=== PATIENT | female | born 1950 | race African-American/Black ===

== ENCOUNTER → 2016-05-07 | Outpatient (CLI) | payer MEDICARE, MEDICAID ==
[~2016-05-07] MED LIST: /ADVA50050; /DULO30CA OR; /GLIP10TAB OR; /IPRA3SP; /MOXI40TA; /PANT40TA; /PANT40TA OR; /QUIN10TA; /RISE35TA; ACET50TA PO; ACTO30TA; ADVAIR; ALBU17IN2 IN; ALBU17IN2 INH; ALBU83IN IN; ALBU83IN INH; ALBUT INH; AMLO10TAB; AMLO5TAB; AMLO5TAB OR; AMLO5TAB2 PO; AMMO12LO TOP; ARTISOL10; ASPI1TAB PO; ASPI325T; ASPI325T OR; ASPI325T PO; AZIT600T OR; Amlodipine Besylate PO; BIMA01SOL OU; BRIM1OPD; CEFD300C OR; CEROVITE PO; COLA100C2; COLA50CA3 PO; COZA100T OR; COZA100T2 PO; CYCL5TA PO; DILA100C PO; DRIS50002 PO; DUONSOL IN; FERR325T PO; FLEXERIL; FLEXERIL PO; FURO1TAB15 PO; FURO40TA2 OR; GLIP5TAB8 PO; GLUC1000; GLUC1000 OR; GLUC1000 PO; GLUC10TA3 PO; HYDR-4266 PO; IBUP200C PO; IBUP600T; IBUP600T OR; IBUP800T; IBUP800T23 PO; INSUDET SC; INSUH10VL SC; INSULANT; INSULANT SC; IPRA2IN INH; IPRATROPIUM INH; ISOVUE-370 76% 100ML VIAL (Q9967) As Ordered ONE; KEFL500C7 PO; KEPP250T5 PO; KEPP500T6 PO; LASI20TA; LASI40TA; LASI40TA PO; LASI80TA OR; LASI80TA PO; LEVETIRACETAM PO; LIDO1CRE2 TOP; LIDO1OIN2 TOP; LIDODERM 5%; LIPI80TA; LISI10TA4 PO; LOPR1TAB6 PO; LOPR50TA OR; LOSA100T36 PO; LUMIGAN 0.01% OU; LYRI100C10 PO; LYRI150C PO; LYRI200C OR; LYRI75CA; MAALOX PLUS OR; MAGN400C2 PO; METO10TA2 PO; METO50TA2 PO; MODA200T15 PO; MYLASUS2 PO; NEUR300C PO; NIFE15CA PO; NORC7.5T PO; NORCOTAB PO; NOVOLOG100 MG/ML; NOVOLOG100 MG/ML SC; PHEN100C PO; PLAV75TA2 OR; PLAV75TA38 PO; POLY33502 PO; POLYOPD OU; POTA10CA PO; POTA20TA2 OR; PRAV10TA PO; PRAV1TAB39 PO; PRED10TA PO; PRED10TA2 PO; PRED20TA; PRED20TA OR; PRED20TA PO; PRED25TA PO; PREG100CA OR; PRENTAB13 PO; PRIL40CA; PROT1TAB2 PO; PROV90AE; REGULAR INSULIN; REST0.05 OU; RESTASIS; RESTASIS OU; RISP1TAB3 PO; SING10TA31; SYST1SOL OU; SYSTANE OU; TESS100C OR; TESS100C PO; THERGRAN; TRAM50TA2; VIBR100C PO; VICODINES TAB OR; VIMP100T PO; VITA100T17; VITA400C; VITA500T; VITAMIN D50000 UNT; VITAMIN D50000 UNT OR; XOPE1.252; ZITH250T OR; [UNRECOGNIZED DRUG - CODE] PO; [UNRECOGNIZED DRUG - OTHER] OR; [UNRECOGNIZED DRUG - OTHER] OR; [UNRECOGNIZED DRUG - OTHER] PO; atrovent INH; clindamycin OR; duonebs; flexeril OR; hyzaar; levemir SC; levimir SC; lidocaine TOP; lumigan; proventil inhaler INH; vicodin OR
== END | disposition home or self-care (01) ==
LOC: M RAD 12:40
PROVIDERS: ATTEND Family Medicine
DX: Z53.8 Procedure and treatment not carried out for other reasons (principal); I65.22 Occlusion and stenosis of left carotid artery

== ENCOUNTER → 2016-05-20 | Outpatient (REF) | payer MEDICARE, MEDICAID ==
[~2016-05-20] MED LIST changes: -ISOVUE-370 76% 100ML VIAL (Q9967) As Ordered ONE
[2016-05-20 17:32] LABS: ALBUMIN 3.2 GM/DL (3.2-5.2); ALKALINE PHOSPHATASE 108 U/L (45-117); ALT/SGPT 23 U/L (12-78); ANION GAP 9 MEQ/L (8-16); AST/SGOT 12 U/L (15-37); BILIRUBIN,TOTAL 0.1 MG/DL (0.2-1.0); BLOOD UREA NITROGEN 14 MG/DL (7-18); CALCIUM LEVEL 8.7 MG/DL (8.8-10.2); CARBON DIOXIDE LEVEL 28 MEQ/L (21-32); CHLORIDE LEVEL 107 MEQ/L (98-107); CHOLESTEROL LEVEL 156 MG/DL (<200); CREATININE FOR GFR 0.49 MG/DL (0.55-1.02); GLOMERULAR FILTRATION RATE > 60.0 (>45); GLUCOSE, FASTING 112 MG/DL (80-110); POTASSIUM SERUM 4.4 MEQ/L (3.5-5.1); SODIUM LEVEL 144 MEQ/L (136-145); TOTAL PROTEIN 6.4 GM/DL (6.4-8.2); TRIGLYCERIDES LEVEL 197 MG/DL (<150)
[2016-05-20 18:05] LABS: MEAN CORPUSCULAR HGB CONC 31.4 g/dl (32.0-36.5); MEAN CORPUSCULAR VOLUME 92.4 fl (80.0-96.0); RED CELL DISTRIBUTION WIDTH 14.1 % (11.5-14.5); WHITE BLOOD COUNT 6.5 K/mm3 (4.0-10.0)
== END ==
LOC: M SFHCLERA 10:40
PROVIDERS: ATTEND Family Medicine
DX: I50.32 Chronic diastolic (congestive) heart failure (principal); E11.65 Type 2 diabetes mellitus with hyperglycemia
CPT/HCPCS: 80053; 80061; 81001; 82043; 83036; 83880; 85027; G0463

== ENCOUNTER → 2016-06-05 | Outpatient (REF) | payer MEDICARE, MEDICAID ==
[2016-06-05 19:10] LABS: BLOOD UREA NITROGEN 18 MG/DL (7-18); CREATININE FOR GFR 0.51 MG/DL (0.55-1.02); GLOMERULAR FILTRATION RATE > 60.0 (>45)
== END ==
LOC: M LABNEURO 16:29
PROVIDERS: ATTEND Surgery Vascular Surgery
DX: I65.22 Occlusion and stenosis of left carotid artery (principal)

== ENCOUNTER → 2016-07-23 | Outpatient (REF) | payer MEDICARE, MEDICAID ==
[~2016-07-23] MED LIST changes: +MYLASUS16 PO; -MYLASUS2 PO
== END ==
LOC: M SFHCLERA 09:15
PROVIDERS: ATTEND Family Medicine
DX: I50.33 Acute on chronic diastolic (congestive) heart failure (principal); Z53.8 Procedure and treatment not carried out for other reasons

== ENCOUNTER → 2016-08-14 | Outpatient (CLI) | payer MEDICARE, MEDICAID ==
[~2016-08-14] MED LIST changes: +BRIM2OPD OU; +FERR325T3 PO; +GLUT500C PO; +GLUTAMINE; +HYDR100T PO; +LIDO3CRE14 EXT; +LIDOCAINE TOP; +METF1000 PO; +METO-209 PO; +METO100T PO; +NYST100024 TOP; +ROSU20TA PO; +SYMB16INH INH
== END ==
LOC: M LRY 11:43
PROVIDERS: ATTEND Internal Medicine Cardiovascular Disease
DX: D64.9 Anemia, unspecified (principal); I50.9 Heart failure, unspecified
CPT/HCPCS: 36415; G0463

== ENCOUNTER 2016-08-18 13:42 | Inpatient (IN) | payer MEDICARE, MEDICAID ==
[~2016-08-18] VITALS: Ht 157.5 cm; Wt 105.8 kg
[~2016-08-18 13:42] MED LIST changes: -BRIM2OPD OU; -FERR325T3 PO; -GLUT500C PO; -GLUTAMINE; -HYDR100T PO; -LIDO3CRE14 EXT; -LIDOCAINE TOP; -METF1000 PO; -METO-209 PO; -METO100T PO; -NYST100024 TOP; -ROSU20TA PO; -SYMB16INH INH
[2016-08-18] MEDS ORDERED: BRIM2OPD OU (14:37)
[2016-08-18] MEDS ORDERED: ROSU20TA PO (14:37)
[2016-08-18] MEDS ORDERED: INSUDET SC (14:37)
[2016-08-18] MEDS ORDERED: METO-209 PO (14:37)
[2016-08-18] MEDS ORDERED: GLUTAMINE (14:37)
[2016-08-18] MEDS ORDERED: METF1000 PO (14:37)
[2016-08-18] MEDS ORDERED: DILA100C PO (14:37)
[2016-08-18] MEDS ORDERED: HYDR100T PO (14:37)
[2016-08-18] MEDS ORDERED: FERR325T3 PO (14:37)
[2016-08-18] MEDS ORDERED: LIDOCAINE TOP (14:37)
--- NOTE | 2016-08-18 15:56 | REP ---
Clinical: Chest pain. Technique: AP and lateral views. Comparison: 03/11/2016. Findings: Diffuse bilateral hazy opacifications. Differential diagnosis includes pulmonary vascular congestion as well as multifocal pneumonia. No definite effusion. No pneumothorax. Mediastinum and cardiac silhouette are stable and mild cardiomegaly cannot be excluded. Skeletal structures demonstrate age-related degenerative changes. Impression: Diffuse hazy opacifications. Differential diagnosis includes vascular congestion and multifocal pneumonia. Signed by Guy Whitaker MD 08/18/2016 03:47 P
[2016-08-18] MEDS ORDERED: METO100T PO (16:39)
[2016-08-18] MEDS ORDERED: GLUT500C PO (16:40)
[2016-08-18] MEDS ORDERED: LIDO3CRE14 EXT (16:40)
[2016-08-18] MEDS ORDERED: SYMB16INH INH (16:42)
[2016-08-18] MEDS ORDERED: NYST100024 TOP (16:42)
--- NOTE | 2016-08-18 17:21 | REP ---
Noncontrast head CT: History: Increased seizures. Comparison head CT study: January 08, 2016. Findings: Bone window settings demonstrate an intact bony calvarium. Visualized paranasal sinuses are clear. There is moderate diffuse cerebral atrophy. There are small vessel atherosclerotic changes again noted. There is no evidence of intracranial hemorrhage. There is an old lacunar infarct in the right basal ganglia. There is evidence of an old subcortical infarction in the sub insular white matter on the right as well. These findings are unchanged. No new infarction is seen. No mass, bleed or midline shift is observed. Impression: Moderate diffuse atrophy. Small vessel changes. Old right-sided infarct pattern, unchanged. No acute intracranial lesion. Signed by Dre Florentino MD 08/19/2016 08:16 A
[2016-08-18] MEDS: SYMBICORT 160/4.5MCG INHALER 6GM INH SCH (21:00)
[2016-08-18] MEDS: HumaLOG INSULIN (NovoLOG) PER UNIT SC SCH (21:00)
[2016-08-18] MEDS ORDERED: FUROSEMIDE 40 MG/4 ML VIAL (J1940) IV ONE (22:30)
[2016-08-18 22:38] LABS: BASO % 0.4 % (0.0-1.0); EOS # 0.3 K/mm3 (0.0-0.50); EOS % 3.5 % (0.0-3.0); LARGE UNSTAINED CELL # 0.1 K/mm3 (0.0-0.4); LARGE UNSTAINED CELL % 1.5 % (0.0-4.0); LYMPH # 1.3 K/mm3 (1.5-4.5); LYMPH % 16.2 % (24.0-44.0); MEAN CORPUSCULAR HEMOGLOBIN 28.7 pg (27.0-33.0); MEAN CORPUSCULAR HGB CONC 31.7 g/dl (32.0-36.5); MEAN CORPUSCULAR VOLUME 90.3 fl (80.0-96.0); MONO # 0.4 K/mm3 (0.0-0.8); MONO % 4.7 % (0.0-5.0); NEUTROPHILS % 73.7 % (36.0-66.0); PLATELET COUNT, AUTOMATED 358 k/mm3 (150-450); RED CELL DISTRIBUTION WIDTH 13.6 % (11.5-14.5); WHITE BLOOD COUNT 8.1 K/mm3 (4.0-10.0)
[2016-08-18 22:59] LABS: ANION GAP 10 MEQ/L (8-16); BLOOD UREA NITROGEN 11 MG/DL (7-18); CALCIUM LEVEL 7.6 MG/DL (8.8-10.2); CARBON DIOXIDE LEVEL 28 MEQ/L (21-32); CHLORIDE LEVEL 103 MEQ/L (98-107); CREATININE FOR GFR 0.49 MG/DL (0.55-1.02); FREE T4 1.05 NG/DL (0.76-1.46); GLOMERULAR FILTRATION RATE > 60.0 (>45); GLUCOSE, FASTING 160 MG/DL (80-110); MAGNESIUM LEVEL 1.6 MG/DL (1.8-2.4); PHOSPHORUS LEVEL 3.9 MG/DL (2.5-4.9); POTASSIUM SERUM 3.2 MEQ/L (3.5-5.1); SODIUM LEVEL 141 MEQ/L (136-145)
[2016-08-18] MEDS ORDERED: ACETAMINOPHEN TAB 650MG DOSE (2X325MG) PO ONE (23:00)
[2016-08-18] MEDS ORDERED: POTASSIUM CHLORIDE 10 MEQ SR TABLET PO ONE (23:30)
[2016-08-19] VITALS (9 sets, daily range): BP systolic 141–183; BP diastolic 63–78; O2SAT 92–98
[2016-08-19] MEDS ORDERED: ALBUTEROL 90 MCG/ACT 8GM HFA INHALER INH PRN
[2016-08-19] MEDS ORDERED: NYSTATIN 100,000 UNITS/GM TOPICAL PWD 15 GM TOP PRN
[2016-08-19] MEDS ORDERED: LACTIC ACID 12% LOTION 225 GM BTL TOP PRN
[2016-08-19] MEDS ORDERED: ALBUTEROL SULFATE 2.5 MG/0.5 ML INH NEB SOLN INH PRN
[2016-08-19] MEDS ORDERED: GLUCAGON FOR INJ 1 MG VIAL (J1610) SC PRN
[2016-08-19] MEDS ORDERED: GLUCOSE 4 GM CHEW TABLET PO PRN
[2016-08-19] MEDS ORDERED: POLYVINYL ALCOHOL OPHTH SOLN 15 ML(LIQUITEARS) OU PRN
[2016-08-19] MEDS ORDERED: DEXTROSE 50% 50 ML SYRINGE IV PRN
[2016-08-19] MEDS ORDERED: POTASSIUM CHLORIDE 10 MEQ SR TABLET PO ONE ×2 (00:30→09:00)
[2016-08-19] MEDS ORDERED: MAGNESIUM CHLORIDE 64 MG TABCR (SLO MAG) PO ONE (00:30)
[2016-08-19] MEDS ORDERED: CALCIUM GLUCONATE 1,000 MG in D5W MINI-BAG PLUS 100 ML IV ONE (01:30)
--- NOTE | 2016-08-19 01:50 | HPEPDOC ---
General Date of Admission August 19, 2016 at 00:03 Primary Care Physician: CHRISTOPHER CORONADO MD Attending Physician: JORGITO LITTLE Chief Complaint The patient is a 65-year-old female admitted with a reason for visit of Seizure. Source: Patient, RN notes reviewed, Old records Exam Limitations: No limitations Timing/Duration: This morning Associated Symptoms: Chest Pain, Cough, Headaches, Shortness of breath History of Present Illness Ms. Cooney is a 65-year-old -[place] female who presents to [facility] emergency Department with difficulty breathing and convulsions and involuntary movements. Past medical history significant for hypertension, chronic obstructive pulmonary disease, diabetes mellitus, neuropathy, history of right-sided infarction with persistent left-sided weakness, history of left breast carcinoma , glaucoma, coronary artery disease, gastroesophageal reflux disease, seizure disorder, dyslipidemia, diastolic congestive heart failure, iron deficiency anemia, diverticulosis, obstructive sleep apnea, and sarcoidosis. Patient reports that she developed some shortness of breath and difficulty breathing today with orthopnea, PND, and nonproductive cough. Admits to chronic lower extremity edema. Ambulates some, but mostly with the assistance of a walker and/or wheelchair. Reports a hospitalization 2 weeks ago in [place] for similar symptoms. Reports that she was also having increased body convulsions and involuntary movements that lasted between 10 and 15 minutes and were intermittent. Unable to recall how many of these episodes she's had. 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 Reports buccal maceration as well as bladder incontinence; however, patient has a history of urinary incontinence. Reports that she recalls entire event, but after convulsions and involuntary movements patient reports tiredness and diffuse headache. Also reports right-sided chest pain that she describes as a heaviness without radiation, diaphoresis, fever, chills , night sweats. Denies taking anything for her chest pain. Denies sick contacts. Besides positive review of systems as above all other review of systems are negative. Hospitalist service was consulted and patient was admitted for further medical management. Home Medications Scheduled (Restasis) 0.05 % Emu, 1 DROP OU BID, (Reported) Amlodipine Besylate (Amlodipine Besylate) 5 Mg Tab, 5 MG PO BID, (Reported) Aspirin (Aspirin) 325 Mg Tab, 325 MG PO DAILY, (Reported) Bimatoprost (Lumigan) 50 Drop/2.5 Ml Salma, 1 DROP OU QHS, (Reported) Brimonidine Tartrate 0.15% (Brimonidine Tartrate) 100 Drop/5 Ml Soln, 1 DROP OU BID, (Reported) Budesonide/Formoterol (Symbicort 160-4.5 Mcg/Act) 60 Puff/Inhaler Aers, 2 PUFF INH BID, (Reported) Clopidogrel Bisulfate (Plavix) 75 Mg Tab, 75 MG PO DAILY, (Reported) Ferrous Sulfate (Ferrous Sulfate) 325 Mg Tab, 325 MG PO BID, (Reported) Furosemide (Furosemide) 80 Mg Tab, 80 MG PO DAILY, (Reported) TAKES AT NOON Insulin Aspart (Novolog) 100 U/Ml Inj, 0 SC ACHS, (Reported) PER SLIDING SCALE Insulin Detemir (Levemir) 1 Units/0.01 Ml Susp, 60 UNITS SC BID, (Reported) Losartan Potassium (Losartan Potassium) 100 Mg Tab, 100 MG PO BID, (Reported) Metformin Hydrochloride (Metformin HCl) 1,000 Mg Tab, 1,000 MG PO BID, (Reported ) Metoprolol Tartrate (Metoprolol Tartrate) 100 Mg Tab, 100 MG PO BID, (Reported) Multivitamins/ ( 28-0.8 mg) 1 Tab Tab, 1 TAB PO DAILY, (Reported ) TAKES AT NOON Pantoprazole Sodium Sesquihydr (Protonix) 40 Mg Tab, 40 MG PO DAILY, (Reported) Phenytoin Sodium (Dilantin) 100 Mg Cap, 300 MG PO TID, (Reported) Prednisone (Prednisone) 2.5 Mg Tab, 2.5 MG PO DAILY, (Reported) TAKES AT NOON Rosuvastatin Calcium (Rosuvastatin Calcium) 20 Mg Tab, 20 MG PO QHS, (Reported) Vitamin D (Drisdol) 50,000 Unit Cap, 50,000 UNIT PO QWEEK, (Reported) SUNDAYS hydrALAZINE HCL (Hydralazine HCl) 100 Mg Tab, 100 MG PO TID, (Reported) l-Glutamine (Glutamine) 500 Mg Cap, 500 MG PO BID, (Reported) Scheduled PRN (Ammonium Lactate) 12 % Lot, 1 DOSE TOP BID PRN for DRY SKIN, (Reported) APPLY TO FEET (Lidocaine) Unknown Strength Cre, Unknown Dose EXT BID PRN for PAIN, (Reported) APPLIES TO FEET Acetaminophen/Hydrocodone ([place] 7.5-325 mg) 1 Tab Tab, 1 TAB PO TID PRN for PAIN, (Reported) Albuterol Sulfate (Albuterol Sulfate) 2.5 Mg/3 Ml Nebu, 2.5 MG INH Q2H PRN for SOB/WHEEZING, (Reported) Albuterol Sulfate (Proventil Hfa) 167 Puff/6.7 Gm Aers, 2 PUFFS INH Q4H PRN for SHORTNESS OF BREATH, (Reported) Nystatin (Nystatin Powder) 100,000 Unit/Gm Pow, 1 DOSE TOP for RASH, (Reported) APPLIES UNDER THE STOMACH Polyethylene Glycol (Systane 0.4-0.3 %) 15 Ml Salma, 1 DROP OU BID PRN for DRY EYES, (Reported) Allergies Coded Allergies: Atorvastatin (Unverified Allergy, Unknown, 05/25/15) Baclofen (Unverified Allergy, Unknown, 05/25/15) Clindamycin (Unverified Allergy, Unknown, 05/25/15) Duloxetine (Verified Allergy, Unknown, 02/23/16) Levetiracetam (Verified Allergy, Unknown, 02/23/16) Lisinopril (Unverified Allergy, Unknown, 05/25/15) Sulfa Drugs (Verified Allergy, Unknown, 07/06/12) Topiramate (Verified Allergy, Unknown, hallucinates, 08/18/16) Tramadol (Unverified Allergy, Unknown, 05/25/15) Past Medical History Medical History 1. History of right-sided infarction with persistent left-sided weakness 2. History of left breast carcinoma 3. Chronic obstructive pulmonary disease 4. Hypertension 5. Glaucoma 6. Coronary artery disease 7. Diabetes mellitus 8. Gastroesophageal reflux disease 9. History of seizure 10. Dyslipidemia 11. Diastolic congestive heart failure with left ventricular ejection fraction 75% 12. Iron deficiency anemia 13. Diverticulosis 14. Obstructive sleep apnea 15. Sarcoidosis Surgical History 1. Left simple mastectomy 2. Endoscopy 3. Colonoscopy 4. Bilateral cataracts 5. 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 Dyspnea, Edema , Denies: Palpitations, Lt Headedness Gastrointestinal: Denies: Nausea, Vomiting, Abdominal Pain, Diarrhea, Constipation, Melena, Hematochezia Genitourinary: Reports: Incontinence, Other Symptoms (pruritus), Denies: Dysuria, Frequency, Hematuria Hematologic: Denies: Bruising, Pet[place]chia Musculoskeletal: Reports: Spasms, Denies: Neck Pain, Back Pain, Muscle Pain Neurological: Denies: Weakness, Numbness Physical Examination General Exam: Positive: Alert, Cooperative, No Acute Distress Eye Exam: Positive: PERRLA, Conjunctiva & lids normal, EOMI, Negative: Sclera icteric, Ptosis ENT Exam: Positive: Mucous membr. moist/pink, Pharynx Normal, Tongue Midline, Nares Patent, Negative: Atraumatic, Pharyngeal Edema Neck Exam: Positive: Supple, JVD (level of the mandible), Other (without carotid bruits), Negative: Lymphadenopathy Chest Exam: Positive: Clear to auscultation, Normal air movement, Rhonchi ( bilateral lower lobes) Heart Exam: Positive: Rate Normal, Regular Rhythm, Normal S1, Normal S2, Other (PMI not palpated), Negative: Gallops, Murmurs, Rubs Telemetry: Positive: AV Block (first-degree) Abdomen Exam: Positive: BS Hypoactive, Soft, Negative: Tenderness, Hepatospenomegaly Extremity Exam: Positive: Edema (+2 pitting edema bilateral lower feet), Normal pulses, Negative: Clubbing, Cyanosis, Tenderness Skin Exam: Negative: Rash, Lesion Neuro Exam: Positive: Normal Speech, Other (5/5 strength in right upper and lower extremity; 4/5 strength in left upper and lower extremity) Other physical findings Head CT without contrast IMPRESSION: Moderate diffuse atrophy. Small vessel changes. Old right-sided infarct pattern, unchanged. No acute intracranial lesion. Chest x-ray IMPRESSION: Diffuse hazy opacifications. Differential diagnosis includes vascular congestion and multifocal pneumonia. Vital Signs Vital Signs Date Time Temp Pulse Resp B/P (MAP) Pulse Ox O2 Delivery O2 Flow Rate FiO2 08/19/16 00:57 78 97 08/19/16 00:42 183/82 (115) 08/18/16 14:42 99.3 19 Room Air Laboratory Data Labs 24H Laboratory Tests 2 08/18/16 21:36: White Blood Count 8.1, Red Blood Count 3.17L, Hemoglobin 9.1L, Hematocrit 28.6L , Mean Corpuscular Volume 90.3, Mean Corpuscular Hemoglobin 28.7, Mean Corpuscular Hemoglobin Concent 31.7L, Red Cell Distribution Width 13.6, Platelet Count 358, Neutrophils (%) (Auto) 73.7H, Lymphocytes (%) (Auto) 16.2L, Monocytes (%) (Auto) 4.7, Eosinophils (%) (Auto) 3.5H, Basophils (%) (Auto) 0.4 , Neutrophils # (Auto) 6.0, Lymphocytes # (Auto) 1.3L, Monocytes # (Auto) 0.4, Eosinophils # (Auto) 0.3, Basophils # (Auto) 0.0, Large Unclassified Cells % 1.5 , Large Unclassified Cells # 0.1, Anion Gap 10, Glomerular Filtration Rate > 60.0, Blood Urea Nitrogen 11, Creatinine 0.49L, Sodium Level 141, Potassium Level 3.2L, Chloride Level 103, Carbon Dioxide Level 28, Calcium Level 7.6L, Phosphorus Level 3.9, Total Creatine Kinase 120, Magnesium Level 1.6L, Creatine Kinase MB 1.6, Creatine Kinase MB Relative Index 1.33, Troponin I < 0.02, B- Type Natriuretic Peptide 275H, Albumin 3.0L, Thyroid Stimulating Hormone (TSH) 1.520, Free Thyroxine 1.05, Phenytoin (Dilantin) Level 10.4 CBC/BMP Laboratory Tests 08/18/16 21:36 Red Blood Count 3.17 L, Mean Corpuscular Volume 90.3, Mean Corpuscular Hemoglobin 28.7, Mean Corpuscular Hemoglobin Concent 31.7 L, Red Cell Distribution Width 13.6, Neutrophils (%) (Auto) 73.7 H, Lymphocytes (%) (Auto) 16.2 L, Monocytes (%) (Auto) 4.7, Eosinophils (%) (Auto) 3.5 H, Basophils (%) ( Auto) 0.4, Neutrophils # (Auto) 6.0, Lymphocytes # (Auto) 1.3 L, Monocytes # ( Auto) 0.4, Eosinophils # (Auto) 0.3, Basophils # (Auto) 0.0, Calcium Level 7.6 L , Phosphorus Level 3.9, Total Creatine Kinase 120 Microbiology Microbiology 08/18/16 Blood Culture, Received Pending Assessment/Plan Ms. Cooney is a 65-year-old female with a past medical history significant for hypertension, chronic obstructive pulmonary disease, diabetes mellitus, neuropathy, history of right-sided infarction with persistent left-sided weakness, history of left breast carcinoma, glaucoma, coronary artery disease, gastroesophageal reflux disease, seizure disorder, dyslipidemia, diastolic congestive heart failure, iron deficiency anemia, diverticulosis, obstructive sleep apnea, and sarcoidosis who presents with shortness of breath likely related to congestive heart failure exacerbations and increased convulsions and involuntary movements which do not appear any more serious than what is baseline. 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 Chest x-ray indicates vascular congestion most likely secondary to CHF exacerbation. BNP 275. Ordered Lasix 80 mg IV twice a day. Obtaining records from [facility] before ordering new echocardiogram. Hold beta blockers for the time being. Convulsions and involuntary movements Does not appear to be too far from patient's baseline. Continue phenytoin. Could consider neurology consult if patient's symptoms worsen. Hypokalemia Appears asymptomatic. No changes on EKG. Potassium chloride 40 mEq 2 doses provided. Monitor BMP. Hypomagnesemia Patient has poor peripheral access. Provided 64 mg magnesium chloride supplementation. Will recheck magnesium level in the morning. Hypocalcemia Corrected calcium for albumin is 8.4. Provided 1 g calcium gluconate. Chronic obstructive pulmonary disease Continue with Symbicort, Proventil nebulizer treatments, and Proventil inhaler. Hypertension Continue Norvasc, hydralazine, and Cozaar. Hold beta laurence. Diabetes mellitus Continue Levemir 60 units twice a day. Cover with sliding scale insulin, fingerstick blood glucose levels before meals and at bedtime, and hypoglycemic protocol. Coronary artery disease with history of cerebrovascular accident Continue with aspirin 325 mg daily and Plavix 75 mg daily. Iron deficiency anemia Asymptomatic. Continue ferrous sulfate 325 mg twice a day. Monitor H&H. Dyslipidemia Continue with Crestor. Obstructive sleep apnea Obstructive sleep apnea protocol and continuous pulse oximeter. Cutaneous candidiasis Continue with nystatin powder. Disposition Admit: Progressive care unit Anticipated hospitalization: 2 nights Attending: Dr. Polanco Diet: Continue Current (consistent carbohydrate; 2 g sodium) Activity: Continue Current (activity as tolerated) Diagnostics: Check Labs, Repeat Labs in AM Anticipated Discharge: Home KRISTI GONZALEZ August 19, 2016 01:49
[2016-08-19] MEDS: PHENYTOIN ER 100 MG CAP PO SCH ×4 (02:36→20:38)
[2016-08-19] MEDS: LOSARTAN 50 MG TAB PO SCH ×3 (02:51→20:37)
[2016-08-19] MEDS: **hydrALAZINE HCL** 25 MG TAB PO SCH ×4 (02:52→20:36)
[2016-08-19] MEDS: amLODIPine 5 MG TAB PO SCH ×3 (02:53→20:37)
[2016-08-19] MEDS: ANEXSIA, NORCO 7.5MG/325MG TABLET(HYDROCODONE/APAP) PO PRN ×2 (03:07→20:36)
[2016-08-19] MEDS: ROSUVASTATIN 10 MG TAB (CRESTOR) PO SCH ×2 (03:35→20:49)
[2016-08-19 06:00] LABS: MEAN CORPUSCULAR HEMOGLOBIN 29.2 pg (27.0-33.0); MEAN CORPUSCULAR HGB CONC 33.1 g/dl (32.0-36.5); MEAN CORPUSCULAR VOLUME 88.2 fl (80.0-96.0); RED CELL DISTRIBUTION WIDTH 13.8 % (11.5-14.5); WHITE BLOOD COUNT 7.8 K/mm3 (4.0-10.0)
[2016-08-19 06:10] LABS: ANION GAP 7 MEQ/L (8-16); BLOOD UREA NITROGEN 11 MG/DL (7-18); CALCIUM LEVEL 8.3 MG/DL (8.8-10.2); CARBON DIOXIDE LEVEL 33 MEQ/L (21-32); CHLORIDE LEVEL 102 MEQ/L (98-107); CREATININE FOR GFR 0.46 MG/DL (0.55-1.02); GLOMERULAR FILTRATION RATE > 60.0 (>45); GLUCOSE, FASTING 145 MG/DL (80-110); MAGNESIUM LEVEL 1.6 MG/DL (1.8-2.4); POTASSIUM SERUM 3.4 MEQ/L (3.5-5.1); SODIUM LEVEL 142 MEQ/L (136-145)
--- NOTE | 2016-08-19 06:34 | ECGEPIP ---
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
[2016-08-19] MEDS: BRIMONIDINE 0.15% OPHTH SOLN 5 ML OU SCH ×3 (06:47→20:50)
[2016-08-19] MEDS ORDERED: METOPROLOL TARTRATE 100 MG TAB PO SCH (09:00)
[2016-08-19] MEDS: ASPIRIN 325 MG TAB PO SCH (09:07)
[2016-08-19] MEDS: PANTOPRAZOLE 40MG TAB (PROTONIX) PO SCH (09:07)
[2016-08-19] MEDS: FERROUS SULFATE 325MG TAB PO SCH ×2 (09:07→20:37)
[2016-08-19] MEDS: CLOPIDOGREL 75 MG TAB PO SCH (09:10)
[2016-08-19] MEDS: ENOXAPARIN 40 MG/0.4 ML SYRINGE (J1650) SC SCH (09:10)
[2016-08-19] MEDS: LEVEMIR (INSULIN DETEMIR) 1 UNITS/0.01ML SC SCH ×2 (09:11→20:50)
[2016-08-19] MEDS: FUROSEMIDE 100 MG/10 ML VIAL (J1940) IV SCH ×2 (09:11→20:38)
[2016-08-19] MEDS: HumaLOG INSULIN (NovoLOG) PER UNIT SC SCH ×4 (09:12→20:50)
[2016-08-19] MEDS: SYMBICORT 160/4.5MCG INHALER 6GM INH SCH ×2 (10:29→20:31)
[2016-08-19] MEDS: NYSTATIN 100,000 UNITS/GM TOPICAL PWD 15 GM TOP SCH ×2 (11:28→20:50)
[2016-08-19] MEDS: predniSONE 2.5 MG TAB PO SCH (12:07)
[2016-08-19] MEDS: PRENATAL VITAMIN TAB PO SCH (12:08)
[2016-08-19] MEDS ORDERED: SODIUM CHLORIDE 0.9% INJ 10 ML SYR IV PRN (16:45)
[2016-08-19] MEDS: SODIUM CHLORIDE 0.9% INJ 10 ML SYR IV SCH (17:20)
[2016-08-19] MEDS ORDERED: cloNIDine 0.1 MG TAB PO ONE (23:00)
[2016-08-20 06:00] VITALS: BP 145/80
[2016-08-20] MEDS: ANEXSIA, NORCO 7.5MG/325MG TABLET(HYDROCODONE/APAP) PO PRN (06:40)
[2016-08-20] MEDS: SODIUM CHLORIDE 0.9% INJ 10 ML SYR IV SCH ×2 (06:40→17:44)
[2016-08-20 07:11] LABS: MEAN CORPUSCULAR HEMOGLOBIN 29.1 pg (27.0-33.0); MEAN CORPUSCULAR HGB CONC 32.6 g/dl (32.0-36.5); MEAN CORPUSCULAR VOLUME 89.4 fl (80.0-96.0); RED CELL DISTRIBUTION WIDTH 13.8 % (11.5-14.5); WHITE BLOOD COUNT 6.9 K/mm3 (4.0-10.0)
[2016-08-20 07:17] LABS: ANION GAP 7 MEQ/L (8-16); BLOOD UREA NITROGEN 13 MG/DL (7-18); CALCIUM LEVEL 7.6 MG/DL (8.8-10.2); CARBON DIOXIDE LEVEL 31 MEQ/L (21-32); CHLORIDE LEVEL 105 MEQ/L (98-107); CREATININE FOR GFR 0.47 MG/DL (0.55-1.02); GLOMERULAR FILTRATION RATE > 60.0 (>45); GLUCOSE, FASTING 112 MG/DL (80-110); MAGNESIUM LEVEL 1.9 MG/DL (1.8-2.4); POTASSIUM SERUM 3.6 MEQ/L (3.5-5.1); SODIUM LEVEL 143 MEQ/L (136-145)
[2016-08-20] MEDS: SYMBICORT 160/4.5MCG INHALER 6GM INH SCH ×2 (07:21→19:49)
[2016-08-20] MEDS: LEVEMIR (INSULIN DETEMIR) 1 UNITS/0.01ML SC SCH ×2 (09:01→22:03)
[2016-08-20] MEDS: HumaLOG INSULIN (NovoLOG) PER UNIT SC SCH ×4 (09:02→21:00)
[2016-08-20] MEDS: FUROSEMIDE 100 MG/10 ML VIAL (J1940) IV SCH ×2 (09:02→21:51)
[2016-08-20] MEDS: FERROUS SULFATE 325MG TAB PO SCH ×2 (09:03→21:52)
[2016-08-20] MEDS: amLODIPine 5 MG TAB PO SCH ×2 (09:03→21:53)
[2016-08-20] MEDS: PRENATAL VITAMIN TAB PO SCH (09:03)
[2016-08-20] MEDS: ENOXAPARIN 40 MG/0.4 ML SYRINGE (J1650) SC SCH (09:03)
[2016-08-20] MEDS: CLOPIDOGREL 75 MG TAB PO SCH (09:03)
[2016-08-20] MEDS: cloNIDine 0.1 MG TAB PO SCH ×2 (09:03→21:53)
[2016-08-20] MEDS: PANTOPRAZOLE 40MG TAB (PROTONIX) PO SCH (09:04)
[2016-08-20] MEDS: LOSARTAN 50 MG TAB PO SCH ×2 (09:04→21:52)
[2016-08-20] MEDS: ASPIRIN 325 MG TAB PO SCH (09:04)
[2016-08-20] MEDS: PHENYTOIN ER 100 MG CAP PO SCH ×3 (09:04→21:51)
[2016-08-20] MEDS: **hydrALAZINE HCL** 25 MG TAB PO SCH ×3 (09:05→21:52)
[2016-08-20] MEDS: BRIMONIDINE 0.15% OPHTH SOLN 5 ML OU SCH ×2 (09:06→22:03)
[2016-08-20] MEDS: NYSTATIN 100,000 UNITS/GM TOPICAL PWD 15 GM TOP SCH ×2 (09:06→22:03)
--- NOTE | 2016-08-20 09:11 | REP ---
Procedure: PICC line insertion with Shruthi-Gilson The procedure was performed under the direct supervision of Dr. Florentino. The risks and benefits of the procedure were explained to the patient and informed consent was obtained. The right basilic vein vein was localized using ultrasound guidance. The skin was prepped and draped in a sterile fashion. 2% lidocaine was used as a local anesthetic. Using ultrasound guidance the basilic vein was cannulated and a 0.018 guidewire was inserted and advanced to the SVC using fluoroscopic guidance. The needle was removed and a 5.5 [place] dilator and peel-away sheath was inserted over the guide wire. A 5.5 [place] dual lumen catheter was cut to length of 41 cm. The dilator was removed and the catheter was inserted over the guide wire with the tip ending in the SVC. The peel-away sheath was removed and the catheter was flushed with heparinized saline as per Hospital protocol. The catheter was affixed to the skin and a sterile dressing was applied. The the patient tolerated the procedure well and there were no immediate complications. 1.7 minutes of fluoro time was utilized for this procedure. Reviewed by ETIENNE Fuentes 08/19/2016 07:08 PSigned by Dre Florentino MD 08/20/2016 09:02 A
[2016-08-20] MEDS ORDERED: ACETAMINOPHEN TAB 650MG DOSE (2X325MG) PO PRN (10:45)
[2016-08-20 11:29] VITALS: O2SAT 96
[2016-08-20] MEDS: predniSONE 2.5 MG TAB PO SCH (12:03)
--- NOTE | 2016-08-20 13:47 | IPNPDOC ---
Subjective Date Seen The patient was seen on 08/20/16. Subjective Chief Complaint/HPI The patient is a 65-year-old female admitted with a reason for visit of Seizure. General: Denies: Chills, Night Sweats Constitutional: Denies: Chills, Fever Eyes: Denies: Pain, Vision change ENT: Denies: Head Aches, Ear Pain Skin: Denies: Rash, Lesions Pulmonary: Denies: Dyspnea, Cough Cardiovascular: Denies: Chest Pain, Palpitations Gastrointestinal: Denies: Nausea, Vomiting Genitourinary: Denies: Dysuria, Frequency Hematologic: Denies: Bruising, Bleeding Excessively Objective Physical Examination General Exam: Positive: Alert, Cooperative, No Acute Distress ENT Exam: Positive: Atraumatic, Mucous membr. moist/pink, Nares Patent Neck Exam: Positive: Other Chest Exam: Positive: Rales (faint bibasilar rales) Heart Exam: Positive: Rate Normal, Regular Rhythm, Normal S1, Normal S2 Abdomen Exam: Positive: Soft, Negative: Tenderness Extremity Exam: Positive: Edema (2+ pitting edema in the lower extremities bilaterally), Normal pulses Skin Exam: Negative: Rash, Lesion Neuro Exam: Positive: Normal Speech Psych Exam: Positive: Oriented x 3 Assessment /Plan Plan/VTE VTE Prophylaxis Ordered?: Yes Plan/Urinary Catheter Urinary Catheter: Place Nails Reason for insertion/continuin: Critical Pt monitoring Plan Diet: Continue Current Activity: Continue Current Diagnostics: Check Labs, Repeat Labs in AM Anticipated Discharge: Home Decompensated Congestive heart failure exacerbation Respiratory status significantly approved with a net negative diuresis of ~2.4L here Cont Lasix 80 mg IV twice a day Pending records from recent [facility] regarding echocardiogram Cont Daily Weights Monitor I/O's We will cont to volume optimize the patient Chronic obstructive pulmonary disease Continue with Symbicort, Proventil nebulizer treatments, and Proventil inhaler. Hypertension Continue Norvasc, hydralazine, and Cozaar. Diabetes mellitus Continue Levemir 60 units twice a day Cover with sliding scale insulin, fingerstick blood glucose levels before meals and at bedtime, and hypoglycemic protocol. Coronary artery disease with history of cerebrovascular accident Continue with aspirin 325 mg daily and Plavix 75 mg daily. Iron deficiency anemia Continue ferrous sulfate 325 mg twice a day Dyslipidemia Continue with Crestor. Obstructive sleep apnea Obstructive sleep apnea protocol and continuous pulse oximeter. Cutaneous candidiasis Continue nystatin DVT Prophylaxis Lovenox SC Dispo: PT Eval pending. Continue volume optimization. Anticipate D/C in the next 48-72 hrs pending clinical improvement. VS, I&O, 24H, Fishbone Vital Signs/I&O Vital Signs Date Time Temp Pulse Resp B/P (MAP) Pulse Ox O2 Delivery O2 Flow Rate FiO2 08/20/16 11:29 96 Room Air 08/20/16 09:03 145/80 08/20/16 09:03 81 08/20/16 07:10 18 08/20/16 06:00 97.9 I&O- Last 24 Hours up to 6 AM 08/20/16 06:00 Intake Total 720 ml Output Total 3135 ml Balance -2415 ml Laboratory Data 24H LABS Laboratory Tests 2 08/19/16 16:49: Bedside Glucose (Misc Panel) 269H 08/19/16 19:39: Total Creatine Kinase 92, Creatine Kinase MB 1.3, Creatine Kinase MB Relative Index 1.41, Troponin I < 0.02 08/19/16 20:46: Bedside Glucose (Misc Panel) 268H 08/20/16 06:45: Anion Gap 7L, Glomerular Filtration Rate > 60.0, Blood Urea Nitrogen 13, Creatinine 0.47L, Sodium Level 143, Potassium Level 3.6, Chloride Level 105, Carbon Dioxide Level 31, Calcium Level 7.6L, Magnesium Level 1.9, B-Type Natriuretic Peptide 149H 08/20/16 11:58: Bedside Glucose (Misc Panel) 223H CBC/BMP Laboratory Tests 08/20/16 06:45 Red Blood Count 2.96 L, Mean Corpuscular Volume 89.4, Mean Corpuscular Hemoglobin 29.1, Mean Corpuscular Hemoglobin Concent 32.6, Red Cell Distribution Width 13.8, Calcium Level 7.6 L Microbiology Microbiology 08/19/16 Blood Culture - Preliminary, Resulted No growth after 24 hours . All specim... 08/18/16 Blood Culture - Preliminary, Resulted No growth after 24 hours . All specim... NEREIDA GREGORY MD August 20, 2016 13:47
[2016-08-20 14:00] VITALS: BP 165/74
[2016-08-20] MEDS: ROSUVASTATIN 10 MG TAB (CRESTOR) PO SCH (21:53)
[2016-08-20 22:00] VITALS: BP 140/65
[2016-08-21] MEDS: SODIUM CHLORIDE 0.9% INJ 10 ML SYR IV SCH (05:17)
[2016-08-21 05:40] LABS: MEAN CORPUSCULAR HEMOGLOBIN 28.8 pg (27.0-33.0); MEAN CORPUSCULAR HGB CONC 32.4 g/dl (32.0-36.5); RED CELL DISTRIBUTION WIDTH 13.7 % (11.5-14.5); WHITE BLOOD COUNT 6.9 K/mm3 (4.0-10.0)
[2016-08-21 06:00] VITALS: BP 159/70
[2016-08-21 06:13] LABS: ANION GAP 10 MEQ/L (8-16); BLOOD UREA NITROGEN 12 MG/DL (7-18); CALCIUM LEVEL 8.2 MG/DL (8.8-10.2); CARBON DIOXIDE LEVEL 29 MEQ/L (21-32); CHLORIDE LEVEL 103 MEQ/L (98-107); CREATININE FOR GFR 0.54 MG/DL (0.55-1.02); GLOMERULAR FILTRATION RATE > 60.0 (>45); GLUCOSE, FASTING 90 MG/DL (80-110); POTASSIUM SERUM 3.5 MEQ/L (3.5-5.1); SODIUM LEVEL 142 MEQ/L (136-145)
[2016-08-21] MEDS: SYMBICORT 160/4.5MCG INHALER 6GM INH SCH (07:29)
[2016-08-21] MEDS: HumaLOG INSULIN (NovoLOG) PER UNIT SC SCH (07:30)
[2016-08-21] MEDS: LEVEMIR (INSULIN DETEMIR) 1 UNITS/0.01ML SC SCH (07:38)
[2016-08-21] MEDS ORDERED: LEVEMIR (INSULIN DETEMIR) 1 UNITS/0.01ML SC ONE (07:45)
[2016-08-21] MEDS ORDERED: POTASSIUM CHLORIDE 10 MEQ SR TABLET PO ONE (08:30)
[2016-08-21] MEDS: ENOXAPARIN 40 MG/0.4 ML SYRINGE (J1650) SC SCH (08:38)
[2016-08-21] MEDS: FUROSEMIDE 100 MG/10 ML VIAL (J1940) IV SCH (08:38)
[2016-08-21] MEDS: **hydrALAZINE HCL** 25 MG TAB PO SCH (08:40)
[2016-08-21] MEDS: FERROUS SULFATE 325MG TAB PO SCH (08:40)
[2016-08-21] MEDS: cloNIDine 0.1 MG TAB PO SCH (08:40)
[2016-08-21] MEDS: PANTOPRAZOLE 40MG TAB (PROTONIX) PO SCH (08:40)
[2016-08-21] MEDS: CLOPIDOGREL 75 MG TAB PO SCH (08:40)
[2016-08-21] MEDS: LOSARTAN 50 MG TAB PO SCH (08:41)
[2016-08-21] MEDS: PHENYTOIN ER 100 MG CAP PO SCH (08:41)
[2016-08-21] MEDS: PRENATAL VITAMIN TAB PO SCH (08:41)
[2016-08-21 08:42] VITALS: BP 159/70
[2016-08-21] MEDS: ASPIRIN 325 MG TAB PO SCH (08:42)
[2016-08-21] MEDS: amLODIPine 5 MG TAB PO SCH (08:42)
[2016-08-21] MEDS: BRIMONIDINE 0.15% OPHTH SOLN 5 ML OU SCH (08:43)
[2016-08-21] MEDS: NYSTATIN 100,000 UNITS/GM TOPICAL PWD 15 GM TOP SCH (08:43)
--- NOTE | 2016-08-21 15:55 | DS.PDOC ---
Discharge Summary General Date of Admission August 19, 2016 at 00:03 Date of Discharge 08/21/16 Discharge Summary PROCEDURES PERFORMED DURING STAY: None. ADMITTING DIAGNOSES: 1. . Decompensated congestive heart failure DISCHARGE DIAGNOSES: 1. . Decompensated congestive heart failure COMPLICATIONS/CHIEF COMPLAINT: Seizure. HISTORY OF PRESENT ILLNESS: . 65-year-old female with a past medical history significant for hypertension, chronic obstructive pulmonary disease, diabetes mellitus, neuropathy, history of right-sided infarction with persistent left-sided weakness, history of left breast carcinoma, glaucoma, coronary artery disease, gastroesophageal reflux disease, seizure disorder, dyslipidemia, diastolic congestive heart failure, iron deficiency anemia, diverticulosis, obstructive sleep apnea, and sarcoidosis since to the ER with a chief complaint of increasing shortness of breath. The patient states that she felt increasingly short of breath and was unable to lay flat. In addition during this time the patient also states that she had increasing lower extremity edema. In the ER, the patient was found to be in decompensated congestive heart failure. She was started on IV Lasix and admitted to the hospitalist service for further evaluation and management. During her time here the patient was diuresed to a net negative of almost 3 L, and likely more given the fact that she was incontinent and her urine output was not accurately collected at one point. The remainder of the patient's medical comorbidities were treated as previously prescribed. At this time, the patient says that she is feeling significantly better and is eager to return home. The patient was seen by physical therapy and cleared to return home. At this time, I have advised the patient to follow-up with her primary care physician within one to 2 weeks, and her rn physician office Dr. Moy within 2-3 weeks as well. I also advised her to return to the ER if her symptoms were to persist or worsen. DISCHARGE MEDICATIONS: Please see below. ALLERGIES: Please see below. PHYSICAL EXAMINATION ON DISCHARGE: VITAL SIGNS: Please see below. General Exam: Positive: Alert, Cooperative, No Acute Distress ENT Exam: Positive: Atraumatic, Mucous membr. moist/pink, Nares Patent Neck Exam: Positive: Other Chest Exam: Positive: Rales (faint bibasilar rales) Heart Exam: Positive: Rate Normal, Regular Rhythm, Normal S1, Normal S2 Abdomen Exam: Positive: Soft, Negative: Tenderness Extremity Exam: Positive: Edema (2+ pitting edema in the lower extremities bilaterally), Normal pulses Skin Exam: Negative: Rash, Lesion Neuro Exam: Positive: Normal Speech Psych Exam: Positive: Oriented x 3 LABORATORY DATA: Please see below. IMAGING: Clinical: Chest pain. Technique: AP and lateral views. Comparison: 03/11/2016. Findings: Diffuse bilateral hazy opacifications. Differential diagnosis includes pulmonary vascular congestion as well as multifocal pneumonia. No definite effusion. No pneumothorax. Mediastinum and cardiac silhouette are stable and mild cardiomegaly cannot be excluded. Skeletal structures demonstrate age-related degenerative changes. Impression: Diffuse hazy opacifications. Differential diagnosis includes vascular congestion PROGNOSIS: ACTIVITY: As tolerated. DIET: . 2 g low sodium diet DISCHARGE PLAN: DISPOSITION: 01 Home, Self-Care. DISCHARGE INSTRUCTIONS: 1. . Follow-up with primary care physician within one to 2 weeks 2. . Follow-up with rn physician office Dr. Moy within 2-3 weeks 3. . Return to ER if symptoms return or worsen DISCHARGE CONDITION: Stable. TIME SPENT ON DISCHARGE: Greater than 30 minutes. Vital Signs/I&Os Vital Signs Date Time Temp Pulse Resp B/P (MAP) Pulse Ox O2 Delivery O2 Flow Rate FiO2 08/21/16 08:42 79 159/70 08/21/16 06:00 97.8 18 99 Room Air I&O- Last 24 Hours up to 6 AM 08/21/16 06:00 Intake Total 1440 ml Output Total 1450 ml Balance -10 ml Laboratory Data Labs 24H Laboratory Tests 2 08/20/16 16:40: Bedside Glucose (Misc Panel) 172H 08/20/16 20:01: Bedside Glucose (Misc Panel) 234H 08/21/16 05:21: Anion Gap 10, Glomerular Filtration Rate > 60.0, Blood Urea Nitrogen 12, Creatinine 0.54L, Sodium Level 142, Potassium Level 3.5, Chloride Level 103, Carbon Dioxide Level 29, Calcium Level 8.2L, Magnesium Level 2.0 CBC/BMP Laboratory Tests 08/21/16 05:21 Red Blood Count 3.14 L, Mean Corpuscular Volume 89.0, Mean Corpuscular Hemoglobin 28.8, Mean Corpuscular Hemoglobin Concent 32.4, Red Cell Distribution Width 13.7, Calcium Level 8.2 L FSBS Laboratory Tests Test 08/20/16 16:40 08/20/16 20:01 Range/Units Bedside Glucose (Misc Panel) 172 234 80-115 MG/DL Microbiology Microbiology 08/19/16 Blood Culture - Preliminary, Resulted No Growth after 48 hours. All Specime... 08/18/16 Blood Culture - Preliminary, Resulted No Growth after 48 hours. All Specime... Discharge Medications Scheduled (Restasis) 0.05 % Emu, 1 DROP OU BID, (Reported) Amlodipine Besylate (Amlodipine Besylate) 5 Mg Tab, 5 MG PO BID, (Reported) Aspirin (Aspirin) 325 Mg Tab, 325 MG PO DAILY, (Reported) Bimatoprost (Lumigan) 50 Drop/2.5 Ml Salma, 1 DROP OU QHS, (Reported) Brimonidine Tartrate 0.15% (Brimonidine Tartrate) 100 Drop/5 Ml Soln, 1 DROP OU BID, (Reported) Budesonide/Formoterol (Symbicort 160-4.5 Mcg/Act) 60 Puff/Inhaler Aers, 2 PUFF INH BID, (Reported) Clopidogrel Bisulfate (Plavix) 75 Mg Tab, 75 MG PO DAILY, (Reported) Ferrous Sulfate (Ferrous Sulfate) 325 Mg Tab, 325 MG PO BID, (Reported) Furosemide (Furosemide) 80 Mg Tab, 80 MG PO DAILY, (Reported) TAKES AT NOON Insulin Aspart (Novolog) 100 U/Ml Inj, 0 SC ACHS, (Reported) PER SLIDING SCALE Insulin Detemir (Levemir) 1 Units/0.01 Ml Susp, 60 UNITS SC BID, (Reported) Losartan Potassium (Losartan Potassium) 100 Mg Tab, 100 MG PO BID, (Reported) Metformin Hydrochloride (Metformin HCl) 1,000 Mg Tab, 1,000 MG PO BID, (Reported ) Metoprolol Tartrate (Metoprolol Tartrate) 100 Mg Tab, 100 MG PO BID, (Reported) Multivitamins/ ( 28-0.8 mg) 1 Tab Tab, 1 TAB PO DAILY, (Reported ) TAKES AT NOON Pantoprazole Sodium Sesquihydr (Protonix) 40 Mg Tab, 40 MG PO DAILY, (Reported) Phenytoin Sodium (Dilantin) 100 Mg Cap, 300 MG PO TID, (Reported) Prednisone (Prednisone) 2.5 Mg Tab, 2.5 MG PO DAILY, (Reported) TAKES AT NOON Rosuvastatin Calcium (Rosuvastatin Calcium) 20 Mg Tab, 20 MG PO QHS, (Reported) Vitamin D (Drisdol) 50,000 Unit Cap, 50,000 UNIT PO QWEEK, (Reported) SUNDAYS hydrALAZINE HCL (Hydralazine HCl) 100 Mg Tab, 100 MG PO TID, (Reported) l-Glutamine (Glutamine) 500 Mg Cap, 500 MG PO BID, (Reported) Scheduled PRN (Ammonium Lactate) 12 % Lot, 1 DOSE TOP BID PRN for DRY SKIN, (Reported) APPLY TO FEET (Lidocaine) Unknown Strength Cre, Unknown Dose EXT BID PRN for PAIN, (Reported) APPLIES TO FEET Acetaminophen/Hydrocodone ([place] 7.5-325 mg) 1 Tab Tab, 1 TAB PO TID PRN for PAIN, (Reported) Albuterol Sulfate (Albuterol Sulfate) 2.5 Mg/3 Ml Nebu, 2.5 MG INH Q2H PRN for SOB/WHEEZING, (Reported) Albuterol Sulfate (Proventil Hfa) 167 Puff/6.7 Gm Aers, 2 PUFFS INH Q4H PRN for SHORTNESS OF BREATH, (Reported) Nystatin (Nystatin Powder) 100,000 Unit/Gm Pow, 1 DOSE TOP for RASH, (Reported) APPLIES UNDER THE STOMACH Polyethylene Glycol (Systane 0.4-0.3 %) 15 Ml Salma, 1 DROP OU BID PRN for DRY EYES, (Reported) Allergies Coded Allergies: Atorvastatin (Unverified Allergy, Unknown, 05/25/15) Baclofen (Unverified Allergy, Unknown, 05/25/15) Clindamycin (Unverified Allergy, Unknown, 05/25/15) Duloxetine (Verified Allergy, Unknown, 02/23/16) Levetiracetam (Verified Allergy, Unknown, 02/23/16) Lisinopril (Unverified Allergy, Unknown, 05/25/15) Sulfa Drugs (Verified Allergy, Unknown, 07/06/12) Topiramate (Verified Allergy, Unknown, hallucinates, 08/18/16) Tramadol (Unverified Allergy, Unknown, 05/25/15) NEREIDA GREGORY MD August 21, 2016 15:55
== END 2016-08-21 11:00 | disposition home or self-care (01) | DRG 292 ==
LOC: M ED 16:52 → M ED INP 08-19 00:03 → M ICU 08-19 05:53 → M MS5PR 08-19 23:14
PROVIDERS: ADMIT Hospitalist; ATTEND Internal Medicine
PROC: 02HV33Z Insertion of Infusion Device into Superior Vena Cava, Percutaneous Approach (ICD-10-PCS; principal; 2016-08-19)
DX: I50.33 Acute on chronic diastolic (congestive) heart failure (principal); I69.354 Hemiplegia and hemiparesis following cerebral infarction affecting left non-dominant side; G40.909 Epilepsy, unspecified, not intractable, without status epilepticus; Z85.3 Personal history of malignant neoplasm of breast; J44.9 Chronic obstructive pulmonary disease, unspecified; I11.0 Hypertensive heart disease with heart failure; K21.9 Gastro-esophageal reflux disease without esophagitis; E78.5 Hyperlipidemia, unspecified; E11.9 Type 2 diabetes mellitus without complications; D50.9 Iron deficiency anemia, unspecified; E87.6 Hypokalemia; B37.2 Candidiasis of skin and nail; E83.42 Hypomagnesemia; G47.33 Obstructive sleep apnea (adult) (pediatric); Z90.710 Acquired absence of both cervix and uterus; Z83.3 Family history of diabetes mellitus; Z82.49 Family history of ischemic heart disease and other diseases of the circulatory system; Z90.12 Acquired absence of left breast and nipple; H40.9 Unspecified glaucoma; Z80.0 Family history of malignant neoplasm of digestive organs; Z82.8 Family history of other disabilities and chronic diseases leading to disablement, not elsewhere classified; Z87.891 Personal history of nicotine dependence

== ENCOUNTER 2016-12-25 06:16 | Day surgery (SDC) | payer MEDICARE, MEDICAID ==
[~2016-12-25] VITALS: Ht 157.5 cm; Wt 108.0 kg
[~2016-12-25 06:16] MED LIST changes: +BRIM2OPD OU; +DEPA250T32 PO; +FERR1TAB8 PO; -FERR325T PO; +FERR325T3 PO; -FURO1TAB15 PO; +FURO80TA2 PO; +GLUT500C PO; +GLUTAMINE; +HYDR-3910 PO; -HYDR-4266 PO; +HYDR100T PO; +IBUP1TAB7 PO; -IBUP200C PO; +IBUP200C10 PO; -IBUP800T23 PO; +KEFL500C17 PO; -KEFL500C7 PO; +KEPP1TAB PO; -KEPP500T6 PO; +LIDO3CRE14 EXT; +LIDOCAINE TOP; +LOPE2TAB3 PO; -LYRI100C10 PO; +METF10004 PO; +METO100T5 PO; +METO1TAB33 PO; -METO50TA2 PO; +METO50TA7 PO; -NORC7.5T PO; +NORC7.5T35 PO; +NYST1POW9 TOP; +PLAV1TAB2 PO; -PLAV75TA38 PO; -PRAV10TA PO; +PRAV10TA4 PO; +PREG100CA PO; -PRENTAB13 PO; +PRENTAB20 PO; +ROSU20TA PO; +SYMB16INH INH; +TROS20TA3 PO
[2016-12-25] MEDS ORDERED: LR 1,000 ML IV ONE (06:30)
[2016-12-25] MEDS ORDERED: MIDAZOLAM INJ 2 MG/2 ML VIAL (J2250) As Ordered ONE (07:10)
[2016-12-25] MEDS ORDERED: fentaNYL 100 MCG/2 ML INJECTION (J3010) As Ordered ONE (07:10)
[2016-12-25] MEDS ORDERED: LIDOCAINE 1% SDV INJ 30 ML VIAL As Ordered ONE (07:20)
[2016-12-25] MEDS ORDERED: HEPARIN SOD (PORCINE) 5000 UNITS/ML VIAL As Ordered ONE (07:20)
[2016-12-25] MEDS ORDERED: diphenhydrAMINE INJ 50MG/ML VIAL (J1200) As Ordered ONE (08:29)
[2016-12-25] MEDS ORDERED: PROPOFOL 200 MG/20 ML VIAL As Ordered ONE (08:29)
--- NOTE | 2016-12-25 09:05 | REP ---
C-ARM VIEW CHEST: C-arm view of the chest was performed. Central venous catheter is seen with the tip likely in the superior vena cava. 4 seconds fluoroscopy time utilized. Signed by Bello Alas MD 12/25/2016 05:37 P
[2016-12-25] MEDS ORDERED: LR 1,000 ML IV SCH (10:00)
[2016-12-25] MEDS ORDERED: IBUPROFEN 600 MG TAB PO PRN (10:00)
[2016-12-25] MEDS ORDERED: ONDANSETRON 4MG/2ML VIAL (J2405) IV PRN (10:00)
[2016-12-25] MEDS ORDERED: HYDROmorphone HCL 1 MG/ML SYRINGE (J1170) IV PRN (10:00)
[2016-12-25] MEDS ORDERED: PERCOCET 5MG/325MG TAB PO PRN (10:00)
[2016-12-25] MEDS ORDERED: fentaNYL 100 MCG/2 ML INJECTION (J3010) IV PRN (10:00)
--- NOTE | 2016-12-25 10:10 | RO ---
DATE OF PROCEDURE: 12/25/2016 PREOPERATIVE DIAGNOSIS: Need for central venous access. POSTOPERATIVE DIAGNOSIS: Need for central venous access. PROCEDURE PERFORMED: Placement of a right internal jugular vein BardPort [id number] with ultrasound and fluoroscopic guidance. SURGEON: Marvin Boston MD FLOCCULATOR OPERATOR: ANESTHESIA: Local with 1% Xylocaine with monitored anesthesia care. INDICATIONS FOR THE PROCEDURE: The patient is a 66-year-old woman who frequently requires venous access for management of her multiple medical problems. She has very poor peripheral venous access, which has become problematic, and she is now for placement of an [id number]. OPERATIVE PROCEDURE: The patient was placed supine on the operating table. The patient's right neck and upper chest were prepped and draped in a sterile fashion. She received sedation from anesthesia. The [facility] ultrasound was draped and used to inspect the right side of the neck. The carotid artery and internal jugular vein were identified. The patient was tilted into a Trendelenburg position to enhance the vein. Local anesthesia was achieved with 1% Xylocaine. Under ultrasound guidance, an 18-gauge needle was inserted and advanced into the vein without difficulty. There was excellent return of venous blood. The guidewire was passed and the needle removed. The skin was nicked at the wire insertion site, and the peel-away sheath introducer was inserted. The BardPort [id number] catheter was then inserted, and the sheath was removed. Blood aspirated easily, and the catheter was flushed with heparinized saline. The catheter was withdrawn to approximately 15 cm of the skin surface. The patient was taken out of the Trendelenburg position. Fluoroscopic inspection showed that the catheter was perhaps a little deep, and this was withdrawn to 13 cm at the skin surface. Final fluoroscopic image showed good positioning of the catheter. Additional local anesthesia was then achieved in the infraclavicular fossa. A transverse skin incision was made, and a subcutaneous pocket was created to receive the port. The catheter was then tunneled down to the port site. The catheter was cut to length and attached to the port using the locking ring. The port was placed into the subcutaneous pocket and sutured to the underlying tissues with two simple sutures of 3-0 Vicryl. The subcutaneous tissues were then approximated with 3-0 Vicryl. The port was accessed a final time and flushed with 100 units/cc heparin solution. The two skin incisions were closed with buried sutures of 5-0 Vicryl and Steri-Strips. Two small Opsite dressings were applied. The patient tolerated the procedure well without apparent complication. The port implanted was a BardPort [id number], product code number [id number], lot number [id number]. MTDD
[2016-12-25 10:20] VITALS: BP 181/77
== END 2016-12-25 10:46 | disposition home or self-care (01) ==
LOC: M SDC 06:16
PROVIDERS: ATTEND Surgery
DX: Z45.2 Encounter for adjustment and management of vascular access device (principal); I11.0 Hypertensive heart disease with heart failure; R60.0 Localized edema; J45.909 Unspecified asthma, uncomplicated; M12.9 Arthropathy, unspecified; E10.40 Type 1 diabetes mellitus with diabetic neuropathy, unspecified; K57.32 Diverticulitis of large intestine without perforation or abscess without bleeding; R29.898 Other symptoms and signs involving the musculoskeletal system; R56.9 Unspecified convulsions; H40.9 Unspecified glaucoma; I50.42 Chronic combined systolic (congestive) and diastolic (congestive) heart failure; K21.9 Gastro-esophageal reflux disease without esophagitis; D64.9 Anemia, unspecified; G47.33 Obstructive sleep apnea (adult) (pediatric); C50.912 Malignant neoplasm of unspecified site of left female breast; E55.9 Vitamin D deficiency, unspecified; E78.00 Pure hypercholesterolemia, unspecified; I25.10 Atherosclerotic heart disease of native coronary artery without angina pectoris; R06.02 Shortness of breath; Z88.1 Allergy status to other antibiotic agents; Z88.2 Allergy status to sulfonamides; Z88.5 Allergy status to narcotic agent; Z88.8 Allergy status to other drugs, medicaments and biological substances; Z79.899 Other long term (current) drug therapy; Z79.84 Long term (current) use of oral hypoglycemic drugs; Z79.4 Long term (current) use of insulin; Z79.82 Long term (current) use of aspirin; Z79.01 Long term (current) use of anticoagulants; Z90.710 Acquired absence of both cervix and uterus; Z87.891 Personal history of nicotine dependence; Z86.73 Personal history of transient ischemic attack (TIA), and cerebral infarction without residual deficits; Z87.440 Personal history of urinary (tract) infections; Z96.1 Presence of intraocular lens
CPT/HCPCS: 36561; 76000; C1788; J0690; J1200; J2250; J3010

== ENCOUNTER → 2017-01-19 | Outpatient (CLI) | payer MEDICARE, MEDICAID ==
[~2017-01-19] MED LIST changes: +OXYB10TA PO; +TORS100T PO
--- NOTE | 2017-01-19 12:31 | REP ---
MR BRAIN WITHOUT CONTRAST: HISTORY: Seizure. COMPARISON: Areas of increased signal intensity on T2-weighted images are present in the basal ganglia and centrum semiovale of the right parietal lobe. These represent old lacunar infarctions. Areas of increased signal intensity on T2-weighted images are present in the periventricular and subcortical white matter. This represents small vessel ischemic disease. There is no intraparenchymal hemorrhage, acute infarct, mass or midline shift. The ventricular system and cortical sulci are dilated consistent with mild volume loss. There is no extracerebral collection. The sinuses are clear. IMPRESSION: 1. Old bilateral basal ganglia and right centrum semiovale lacunar infarctions. 2. Small vessel ischemic disease. 3. Mild volume loss. Signed by Prosper Winston MD 01/19/2017 12:32 P
== END ==
LOC: M PLARAD 09:39
PROVIDERS: ATTEND Psychiatry & Neurology Neurology
DX: G40.009 Localization-related (focal) (partial) idiopathic epilepsy and epileptic syndromes with seizures of localized onset, not intractable, without status epilepticus (principal); I63.8 Other cerebral infarction; I69.854 Hemiplegia and hemiparesis following other cerebrovascular disease affecting left non-dominant side; I73.9 Peripheral vascular disease, unspecified; G93.9 Disorder of brain, unspecified

== ENCOUNTER → 2017-02-09 | Outpatient (REF) | payer MEDICARE, MEDICAID ==
[~2017-02-09] MED LIST changes: +DEMA20TA6 PO; +DEPA1TAB3 PO
== END ==
LOC: M SFHCLERA 10:58
PROVIDERS: ATTEND Family Medicine
DX: R30.0 Dysuria (principal); Z23 Encounter for immunization
CPT/HCPCS: 81001; 81002; 87086; 90662; G0008; G0463

== ENCOUNTER 2017-02-16 16:54 | Inpatient (IN) | payer MEDICARE, MEDICAID ==
[~2017-02-16] VITALS: Ht 157.5 cm; Wt 102.8 kg
[~2017-02-16 16:54] MED LIST changes: -DEMA20TA6 PO; -DEPA1TAB3 PO; -OXYB10TA PO; -TORS100T PO
[2017-02-16] MEDS ORDERED: DILA100C PO (17:25)
[2017-02-16] MEDS ORDERED: TETANUS/DIPHTHERIA TOX ADSORB ADULT 0.5ML SYR/VIAL (90714) IM ONE (17:45)
[2017-02-16] MEDS ORDERED: LIDOCAINE W/EPINEPHRINE 1% 20ML VIAL As Ordered ONE (18:08)
--- NOTE | 2017-02-16 18:40 | REPUSA ---
CT of the cervical spine Clinical history: Pain. Seizure. Technique: Multiple axial CT images were obtained through the cervical spine without administration o f contrast. Coronal and sagittal 3-D reconstructed images were also obtained. Comparison: None. Findings: The cervical vertebral bodies are in satisfactory positioning and alignment. No fractures or dislocat ions are demonstrated. The odontoid process is intact. Intervertebral disc spaces are severely narrow ed at C5/C6, C6/C7, and C7/T1. There is no evidence of facet subluxation. The neural foramen appear g rossly patent. The cervical cranial junction is intact. The cervical spinal canal demonstrates normal caliber and contour without evidence of spinal stenosis. The surrounding soft tissues are within nor mal limits. Impression: No acute fracture or traumatic injury. Severe degenerative disc disease at C5/C6, C6/C7, and C7/T1.
--- NOTE | 2017-02-16 18:40 | REPUSA ---
CT of the facial bones without contrast Clinical history: Pain, injury. Technique: Multiple axial CT images were obtained through the facial bones and paranasal sinuses util izing 3 mm axial slices without administration of contrast. Coronal and sagittal reconstructions were also obtained. Findings: The visualized paranasal sinuses are clear. The osteomeatal complexes are patent bilaterall y. The nasal septum is midline. The visualized mastoid air cells are clear. The osseous structures do not demonstrate any acute abnormalities. The superficial soft tissues are swollen in the left fronta l region, overlying the left orbit. There is also a focal soft tissue density lateral to the left orb it, measuring 1.0.x 1.3 centimeters. Impression: 1. No acute osseous abnormality. 2. Focal superficial soft tissue swelling in the left frontal region, with a soft tissue nodule later al to the left orbit as described. Dacryoadenitis and cellulitis cannot be excluded. Clinical correla tion is recommended.
--- NOTE | 2017-02-16 18:40 | REPUSA ---
CT of the head Clinical history: seizure. Comparison: 09/19/2015. Protocol: Multiple axial CT images obtained with 5 mm slice thickness were obtained through the head without administration of contrast. Findings: The ventricles and sulci are symmetric but prominent in size bilaterally. There is encephal omalacia the right basal ganglia. A focal low attenuation lesion is also seen in the right thalamus. There are periventricular areas of low attenuation throughout the deep white matter. There is no evid ence of acute hemorrhage or infarct. There is no midline shift, mass effect, or extra-axial fluid col lection. The osseous structures are unremarkable. The visualized paranasal sinuses and mastoid air ce lls are clear. Impression: No acute hemorrhage or infarct. Two focal stable chronic lacunar infarcts in the right ba son ganglia described. Findings are consistent with age-related atrophy and chronic small vessel isch emic disease.
--- NOTE | 2017-02-16 18:42 | ECGEPIP ---
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
[2017-02-16 19:21] LABS: BASO % 0.3 % (0.0-1.0); EOS # 0.1 10^3/uL (0.0-0.50); EOS % 2.1 % (0.0-3.0); IMMATURE GRANULOCYTE % 0.3 % (0-0); LYMPH # 1.3 10^3/uL (1.5-4.5); LYMPH % 20.4 % (24.0-44.0); MEAN CORPUSCULAR HEMOGLOBIN 29.1 pg (27.0-33.0); MEAN CORPUSCULAR HGB CONC 32.1 g/dl (32.0-36.5); MEAN CORPUSCULAR VOLUME 90.8 fl (80.0-96.0); MONO # 0.7 10^3/uL (0.0-0.8); NEUTROPHILS # 4.3 10^3/uL (1.8-7.7); NEUTROPHILS % 65.9 % (36.0-66.0); PLATELET COUNT, AUTOMATED 355 10^3/uL (150-450); RED CELL DISTRIBUTION WIDTH 12.7 % (11.5-14.5); WHITE BLOOD COUNT 6.6 10^3/uL (4.0-10.0)
[2017-02-16] MEDS ORDERED: TORS100T PO (19:39)
[2017-02-16] MEDS ORDERED: OXYB10TA PO (19:39)
[2017-02-16 19:43] LABS: ALBUMIN 3.6 GM/DL (3.2-5.2); ALBUMIN/GLOBULIN RATIO 1.16 (1.00-1.93); ALKALINE PHOSPHATASE 103 U/L (45-117); ALT/SGPT 23 U/L (12-78); ANION GAP 7 MEQ/L (8-16); AST/SGOT 10 U/L (7-37); BILIRUBIN,DIRECT < 0.1 MG/DL (0.0-0.2); BILIRUBIN,TOTAL 0.1 MG/DL (0.2-1.0); BLOOD UREA NITROGEN 24 MG/DL (7-18); CALCIUM LEVEL 8.9 MG/DL (8.8-10.2); CARBON DIOXIDE LEVEL 33 MEQ/L (21-32); CHLORIDE LEVEL 101 MEQ/L (98-107); CREATININE FOR GFR 0.73 MG/DL (0.55-1.02); GLOMERULAR FILTRATION RATE > 60.0 (>45); GLUCOSE, FASTING 144 MG/DL (80-110); POTASSIUM SERUM 3.9 MEQ/L (3.5-5.1); SODIUM LEVEL 141 MEQ/L (136-145); TOTAL PROTEIN 6.7 GM/DL (6.4-8.2)
[2017-02-16] MEDS: TROSPIUM 20 MG TAB PO SCH (21:00)
[2017-02-16] MEDS: BRIMONIDINE 0.15% OPHTH SOLN 5 ML OU SCH (21:00)
[2017-02-16] MEDS: HumaLOG INSULIN (NovoLOG) PER UNIT SC SCH (21:00)
[2017-02-16] MEDS: **hydrALAZINE** 50 MG TAB PO SCH (21:00)
[2017-02-16] MEDS ORDERED: VALPROATE SOD INJ 500 MG in D5W 50 ML IV ONE (21:45)
[2017-02-16] MEDS ORDERED: ACETAMINOPHEN TAB 650MG DOSE (2X325MG) PO ONE (21:45)
[2017-02-16] MEDS ORDERED: VALPROATE SOD INJ 250 MG in D5W 50 ML IV ONE (22:30)
[2017-02-16] MEDS ORDERED: NYSTATIN 100,000 UNITS/GM TOPICAL PWD 15 GM TOP PRN (22:45)
[2017-02-16] MEDS ORDERED: ALBUTEROL SULFATE 2.5 MG/0.5 ML INH NEB SOLN INH PRN (22:45)
[2017-02-16] MEDS ORDERED: LACTIC ACID 12% LOTION 225 GM BTL TOP PRN (22:45)
[2017-02-16] MEDS ORDERED: GLUCAGON FOR INJ 1 MG VIAL (J1610) SC PRN (23:15)
[2017-02-16] MEDS ORDERED: ONDANSETRON 4MG/2ML VIAL (J2405) IV PRN (23:15)
[2017-02-16] MEDS ORDERED: GLUCOSE 4 GM CHEW TABLET PO PRN (23:15)
--- NOTE | 2017-02-17 01:13 | HPEPDOC ---
General Date of Admission Feb 16, 2017 at 22:39 Primary Care Physician: CHRISTOPHER CORONADO MD Chief Complaint The patient is a 66-year-old female admitted with a reason for visit of Recurrent Seizures. Source: Patient Exam Limitations: No limitations Timing/Duration: 4-6 hours Severity: Moderate Associated Symptoms: Seizure History of Present Illness 66 y/o female with past medical history of hypertension, chronic obstructive pulmonary disease, diabetes mellitus, neuropathy, history of right-sided infarction with persistent left-sided weakness, history of left breast carcinoma , glaucoma, coronary artery disease, gastroesophageal reflux disease, seizure disorder, dyslipidemia, diastolic congestive heart failure, iron deficiency anemia, diverticulosis, obstructive sleep apnea, and sarcoidosis. She presented to ED today after suffering from 4x episodes of involuntary movements. The patient states that her seizures last about 8 minutes, she has a residual period following the seizure of about 3-5 minutes where she is fatigued. She states that she urinates on herself during the episodes and will bite the inside of her mouth, she does not stool on herself. The first seizure today was witnessed by her sprinkling truck driver. She states that they were three hours apart today , the last one occurred at 5 pm and she was on her recliner at home, she fell forward and hit her left eye on the coffee table. She states that before the seizures she has a visual disturbance/aura and both of her hands start to shake , this progresses to whole body involuntary movements. She admits she is not compliant with any of her medications as she is trying to move into an assisted living home and she forgets to take her medicines daily. She denies abdominal pain,cp, n/v, or SOB but admits to a frontal headache that happens after her seizures and lasts a few hours after the episode. She denies being ill recently , denies fevers, muscle aches or chills nor contact with anyone who has been sick. She denies illicit drug use. Denies pain with urination, and denies blood in urine or stool. Home Medications Scheduled (Restasis) 0.05 % Emu, 1 DROP OU BID, (Reported) Amlodipine Besylate (Amlodipine Besylate) 5 Mg Tab, 5 MG PO BID, (Reported) Aspirin (Aspirin) 325 Mg Tab, 325 MG PO DAILY, (Reported) TAKES AT NOON Bimatoprost (Lumigan) 50 Drop/2.5 Ml Salma, 1 DROP OU DAILY, (Reported) Brimonidine Tartrate 0.15% (Brimonidine Tartrate) 100 Drop/5 Ml Soln, 1 DROP OU BID, (Reported) Budesonide/Formoterol (Symbicort 160-4.5 Mcg/Act) 60 Puff/Inhaler Aers, 2 PUFF INH BID, (Reported) Clopidogrel Bisulfate (Plavix) 75 Mg Tab, 75 MG PO DAILY, (Reported) Divalproex Sodium (Depakote) 250 Mg Tab, 250 MG PO BID, (Reported) Ferrous Sulfate (Ferrous Sulfate) 325 Mg Tab, 325 MG PO BID, (Reported) Insulin Aspart (Novolog) 100 U/Ml Inj, 1 DOSE SC ACHS, (Reported) PER SLIDING SCALE Insulin Detemir (Levemir) 1 Units/0.01 Ml Susp, 60 UNITS SC BID, (Reported) Losartan Potassium (Losartan Potassium) 100 Mg Tab, 100 MG PO BID, (Reported) Metformin Hydrochloride (Metformin HCl) 1,000 Mg Tab, 1,000 MG PO BID, (Reported ) Metoprolol Tartrate (Metoprolol Tartrate) 100 Mg Tab, 100 MG PO BID, (Reported) Multivitamins/ ( 28-0.8 mg) 1 Tab Tab, 1 TAB PO DAILY, (Reported ) TAKES AT NOON Oxybutynin Chloride (Oxybutynin Chloride ER) 10 Mg Tab, 10 MG PO DAILY, ( Reported) NEW MED PRESCRIBED 02/16, HAS NOT STARTED Pantoprazole Sodium Sesquihydr (Protonix) 40 Mg Tab, 40 MG PO DAILY, (Reported) Phenytoin Sodium (Dilantin) 100 Mg Cap, 300 MG PO BID, (Reported) QAM AND QHS Phenytoin Sodium (Dilantin) 100 Mg Cap, 200 MG PO DAILY, (Reported) TAKES AT NOON Prednisone (Prednisone) 2.5 Mg Tab, 2.5 MG PO DAILY, (Reported) TAKES AT NOON Rosuvastatin Calcium (Rosuvastatin Calcium) 20 Mg Tab, 20 MG PO QHS, (Reported) Torsemide (Torsemide) 100 Mg Tab, 100 MG PO DAILY, (Reported) Trospium Chloride (Trospium Chloride) 20 Mg Tab, 20 MG PO BID, (Reported) Vitamin D (Drisdol) 50,000 Unit Cap, 50,000 UNIT PO QWEEK, (Reported) SUNDAYS hydrALAZINE HCL (Hydralazine HCl) 100 Mg Tab, 100 MG PO TID, (Reported) Scheduled PRN (Lidocaine) Unknown Strength Cre, 1 DOSE EXT BID PRN for PAIN, (Reported) APPLIES TO FEET Acetaminophen/Hydrocodone ([place] 7.5-325 mg) 1 Tab Tab, 1 TAB PO TID PRN for PAIN, (Reported) Albuterol Sulfate (Albuterol Sulfate) 2.5 Mg/3 Ml Nebu, 2.5 MG INH Q2H PRN for SOB/WHEEZING, (Reported) Albuterol Sulfate (Proventil Hfa) 167 Puff/6.7 Gm Aers, 2 PUFFS INH Q4H PRN for SHORTNESS OF BREATH, (Reported) Ammonium Lactate (Ammonium Lactate) 12 % Lot, 1 DOSE TOP BID PRN for DRY SKIN, ( Reported) APPLY TO FEET Loperamide HCl (Loperamide A-D) 2 Mg Tab, 2 MG PO QIDP PRN for DIARRHEA, ( Reported) Nystatin (Nystatin Powder) 100,000 Unit/Gm Pow, 1 DOSE TOP for RASH, (Reported) APPLIES UNDER THE STOMACH Allergies Coded Allergies: Atorvastatin (Unverified Allergy, Unknown, 12/25/16) Baclofen (Unverified Allergy, Unknown, 12/25/16) Clindamycin (Unverified Allergy, Unknown, 12/25/16) Duloxetine (Verified Allergy, Unknown, 12/25/16) Levetiracetam (Verified Allergy, Unknown, 12/25/16) Lisinopril (Unverified Allergy, Unknown, 12/25/16) Sulfa Drugs (Verified Allergy, Unknown, 12/25/16) Topiramate (Verified Allergy, Unknown, hallucinates, 12/25/16) Tramadol (Unverified Allergy, Unknown, 12/25/16) Past Medical History Medical History as stated in HPI Surgical History hysterectomy Family History Significant Family History: No pertinent family hx Social History * Smoker: former Smoker (quit 30 years ago, was 1 ppd since teens) Alcohol: Denies Drugs: denies Psychosocial History: No pertinent psych hx Review of Symptoms Constitutional: Reports: Malaise, Weakness, Fatigue, Denies: Chills, Fever, Night Sweats, Weight Loss Eyes: Denies: Pain, Vision change ENT: Reports: Head Aches, Denies: Ear Pain Skin: Denies: Rash, Lesions, Jaundice, Bruising Pulmonary: Denies: Dyspnea, Cough Cardiovascular: Denies: Chest Pain, Palpitations, Orthopnea, Edema, Lt Headedness Gastrointestinal: Denies: Nausea, Vomiting, Abdominal Pain, Diarrhea, Constipation, Melena, Hematochezia Genitourinary: Reports: Incontinence, Denies: Dysuria, Frequency, Hematuria Hematologic: Denies: Bruising Endocrine: Denies: Polydipsia Musculoskeletal: Reports: Spasms Neurological: Reports: Weakness, Incoordination, Seizures, Denies: Numbness, Confusion Psych: Reports: Mood Normal Physical Examination General Exam: Positive: Alert, Cooperative, Mild Distress Eye Exam: Positive: PERRLA, Conjunctiva & lids normal, EOMI, Other Eye Symptoms (small lateral left eye laceration-sutured), Negative: Sclera icteric ENT Exam: Positive: Atraumatic, Mucous membr. moist/pink, Pharynx Normal, Tongue Midline, Nares Patent, Negative: Pharyngeal Edema Neck Exam: Positive: Supple, Negative: JVD Chest Exam: Positive: Clear to auscultation, Normal air movement, Diminished, Negative: Rales, Rhonchi, Wheezing Heart Exam: Positive: Rate Normal, Normal S1, Normal S2, Negative: Tachycardic, Bradycardic, Murmurs, Rubs Telemetry: Positive: No significant arrhythmia Abdomen Exam: Positive: Normal bowel sounds, Soft, Negative: Tenderness, Hepatospenomegaly Extremity Exam: Negative: Clubbing, Cyanosis Neuro Exam: Positive: Sensation Intact, Cranial Nerves 3-12 NL, Negative: Strength at 5/5 X4 ext (4/5 right upper and lower extremity, 3/5 left upper and lower extremity) Psych Exam: Positive: Mental status NL, Memory Intact, Oriented x 3, Negative: Anxiety Vital Signs Vital Signs Date Time Temp Pulse Resp B/P (MAP) Pulse Ox O2 Delivery O2 Flow Rate FiO2 02/17/17 00:11 80 97 02/16/17 20:26 148/66 (93) 02/16/17 19:39 Room Air 02/16/17 17:01 96.9 18 Laboratory Data Labs 24H Laboratory Tests 2 02/16/17 18:51: Bedside Glucose (Misc Panel) 138H 02/16/17 19:01: Urine Appearance CLEAR, Urine Color COLORLESS, Urine pH 5.0, Urine Specific [place] 1.005, Urine Protein NEGATIVE, Urine Glucose (UA) NEGATIVE, Urine Ketones NEGATIVE, Urine Urobilinogen 0.2, Urine Bilirubin NEGATIVE, Urine Leukocyte Esterase NEGATIVE, Urine Blood 2+H, Urine Nitrite NEGATIVE, Urine WBC (Auto) 1, Urine RBC (Auto) 4H, Urine Hyaline Casts (Auto) 0, Urine Bacteria ( Auto) 1+H, Urine Squamous Epithelial Cells 0, Urine Mucus (Auto) SMALL, Urine Sperm (Auto) 02/16/17 19:08: Immature Granulocyte % (Auto) 0.3H, White Blood Count 6.6, Red Blood Count 3.26L , Hemoglobin 9.5L, Hematocrit 29.6L, Mean Corpuscular Volume 90.8, Mean Corpuscular Hemoglobin 29.1, Mean Corpuscular Hemoglobin Concent 32.1, Red Cell Distribution Width 12.7, Platelet Count 355, Neutrophils (%) (Auto) 65.9, Lymphocytes (%) (Auto) 20.4L, Monocytes (%) (Auto) 11.0H, Eosinophils (%) (Auto ) 2.1, Basophils (%) (Auto) 0.3, Neutrophils # (Auto) 4.3, Lymphocytes # (Auto) 1.3L, Monocytes # (Auto) 0.7, Eosinophils # (Auto) 0.1, Basophils # (Auto) 0.0, Immature Granulocyte # (Auto) 0.0, Nucleated Red Blood Cells % (auto) 0.0, Anion Gap 7L, Glomerular Filtration Rate > 60.0, Calcium Level 8.9, Aspartate Amino Transf (AST/SGOT) 10, Alanine Aminotransferase (ALT/SGPT) 23, Alkaline Phosphatase 103, Total Bilirubin 0.1L, Direct Bilirubin < 0.1, Total Creatine Kinase 136, Creatine Kinase MB 2.5, Creatine Kinase MB Relative Index 1.83, Troponin I < 0.02, Total Protein 6.7, Albumin 3.6, Albumin/Globulin Ratio 1.16, Phenytoin (Dilantin) Level 20.1H, Valproic Acid (Depakene) Level 14.7L CBC/BMP Laboratory Tests 02/16/17 19:08 Red Blood Count 3.26 L, Mean Corpuscular Volume 90.8, Mean Corpuscular Hemoglobin 29.1, Mean Corpuscular Hemoglobin Concent 32.1, Red Cell Distribution Width 12.7, Neutrophils (%) (Auto) 65.9, Lymphocytes (%) (Auto) 20.4 L, Monocytes (%) (Auto) 11.0 H, Eosinophils (%) (Auto) 2.1, Basophils (%) ( Auto) 0.3, Neutrophils # (Auto) 4.3, Lymphocytes # (Auto) 1.3 L, Monocytes # ( Auto) 0.7, Eosinophils # (Auto) 0.1, Basophils # (Auto) 0.0 Microbiology Microbiology 02/16/17 Urine Culture, Received Pending Problems (1) Recurrent seizures Status: Acute Response to Treatment: Stable Problem Text: believe they are partial complex with generalization patient has not been compliant with her medications phenytoin level 20.1 valproic level 14.7, adjusted for albumin level shows that her phenytoin level is supratherapeutic would consider neurology consult in AM for possible adjustment of seizure medication Head CT revealed No acute hemorrhage or infarct. Two focal stable chronic lacunar infarcts in the right basal ganglia described. Findings are consistent with age-related atrophy and chronic small vessel ischemic disease C-spine CT revealed degenerative disc disease Maxillofacial CT revealed swelling of soft tissue adjacent to left eye consistent with area of laceration due to fall seizure precaution and neuro check q4h (2) CHF (congestive heart failure) Status: Chronic Response to Treatment: Stable Problem Text: stable c/w home torsemide (3) CAD (coronary artery disease) Status: Chronic Response to Treatment: Stable Problem Text: stable continue on home plavix (4) Insulin dependent diabetes mellitus Status: Chronic Response to Treatment: Stable Problem Text: continue patients home levemir sliding scale hga1c ordered (5) Hypertension Status: Chronic Response to Treatment: Stable Problem Text: stable, c/w home medications (6) DVT prophylaxis Status: Acute Response to Treatment: Stable Problem Text: scd teds Plan / VTE VTE Prophylaxis Ordered?: Yes GME ATTESTATION GME ATTESTATION My faculty preceptor for this patient encounter was physically present during the encounter and was fully available. ~All aspects of the patient interview, examination, medical decision making process, and medical care plan development were reviewed and approved by the faculty preceptor. The faculty preceptor is aware and concurs with the plan as stated in the body of this note and will attest to such by his/her co-signature. MATI MEYERS DO Feb 17, 2017 01:13
[2017-02-17] MEDS ORDERED: EXCEDRIN MIGRAINE TABLET PO ONE (02:15)
[2017-02-17] MEDS: ROSUVASTATIN 10 MG TAB (CRESTOR) PO SCH ×2 (02:55→21:28)
[2017-02-17] MEDS: METOPROLOL TARTRATE 100 MG TAB PO SCH ×3 (02:56→21:29)
[2017-02-17] MEDS: amLODIPine 5 MG TAB PO SCH ×3 (02:56→21:28)
[2017-02-17] MEDS: LOSARTAN 50 MG TAB PO SCH ×3 (02:57→21:30)
[2017-02-17] MEDS: SODIUM CHLORIDE 0.9% INJ 10 ML SYR IV PRN (05:58)
[2017-02-17 06:00] VITALS: BP 128/98
[2017-02-17 06:08] LABS: BASO % 0.3 % (0.0-1.0); EOS # 0.1 10^3/uL (0.0-0.50); EOS % 1.6 % (0.0-3.0); IMMATURE GRANULOCYTE % 0.4 % (0-0); LYMPH # 1.1 10^3/uL (1.5-4.5); LYMPH % 15.5 % (24.0-44.0); MEAN CORPUSCULAR HEMOGLOBIN 29.2 pg (27.0-33.0); MEAN CORPUSCULAR HGB CONC 32.8 g/dl (32.0-36.5); MEAN CORPUSCULAR VOLUME 88.9 fl (80.0-96.0); MONO # 0.9 10^3/uL (0.0-0.8); MONO % 12.3 % (0.0-5.0); NEUTROPHILS % 69.9 % (36.0-66.0); PLATELET COUNT, AUTOMATED 330 10^3/uL (150-450); RED CELL DISTRIBUTION WIDTH 12.9 % (11.5-14.5); WHITE BLOOD COUNT 7.1 10^3/uL (4.0-10.0)
[2017-02-17 06:27] LABS: ANION GAP 8 MEQ/L (8-16); BLOOD UREA NITROGEN 23 MG/DL (7-18); CALCIUM LEVEL 8.4 MG/DL (8.8-10.2); CARBON DIOXIDE LEVEL 33 MEQ/L (21-32); CHLORIDE LEVEL 101 MEQ/L (98-107); CREATININE FOR GFR 0.63 MG/DL (0.55-1.02); GLOMERULAR FILTRATION RATE > 60.0 (>45); GLUCOSE, FASTING 146 MG/DL (80-110); POTASSIUM SERUM 3.5 MEQ/L (3.5-5.1); SODIUM LEVEL 142 MEQ/L (136-145)
[2017-02-17] MEDS ORDERED: HumaLOG INSULIN (NovoLOG) PER UNIT SC SCH (07:30)
[2017-02-17] MEDS: SYMBICORT 160/4.5MCG INHALER 6GM INH SCH ×2 (07:33→20:11)
[2017-02-17] MEDS ORDERED: DIVALPROEX 250 MG TAB PO SCH (09:00)
[2017-02-17] MEDS: FERROUS SULFATE 325MG TAB PO SCH ×2 (09:19→21:30)
[2017-02-17] MEDS: PHENYTOIN ER 100 MG CAP PO SCH ×2 (09:20→21:28)
[2017-02-17] MEDS: **hydrALAZINE** 50 MG TAB PO SCH ×3 (09:21→21:27)
[2017-02-17] MEDS: metFORMIN (GLUCOPHAGE) 1000 MG TABLET PO SCH ×2 (09:22→17:22)
[2017-02-17] MEDS: TROSPIUM 20 MG TAB PO SCH ×2 (09:22→21:26)
[2017-02-17] MEDS: PANTOPRAZOLE 40MG TAB (PROTONIX) PO SCH (09:22)
[2017-02-17] MEDS: LEVEMIR (INSULIN DETEMIR) 1 UNITS/0.01ML SC SCH ×2 (09:22→21:00)
[2017-02-17] MEDS: CLOPIDOGREL 75 MG TAB PO SCH (09:22)
[2017-02-17] MEDS: HumaLOG INSULIN (NovoLOG) PER UNIT SC SCH ×4 (09:22→21:00)
[2017-02-17] MEDS: oxyBUTYnin *DITROPAN XL* 5 MG TABCR PO SCH (09:22)
[2017-02-17] MEDS: HEPARIN SOD (PORCINE) 5000 UNITS/ML VIAL SQ SCH ×2 (09:25→21:30)
[2017-02-17] MEDS: SODIUM CHLORIDE 0.9% INJ 10 ML SYR IV SCH (09:25)
[2017-02-17] MEDS: BRIMONIDINE 0.15% OPHTH SOLN 5 ML OU SCH ×2 (09:25→21:31)
[2017-02-17] MEDS: ANEXSIA, NORCO 7.5MG/325MG TABLET(HYDROCODONE/APAP) PO PRN ×2 (09:48→17:22)
[2017-02-17] MEDS ORDERED: PHENYTOIN ER 100 MG CAP PO SCH (12:00)
[2017-02-17] MEDS: PRENATAL VITAMINS CHEWABLE TABLET PO SCH (13:30)
[2017-02-17] MEDS: ASPIRIN 325 MG TAB PO SCH (13:31)
[2017-02-17] MEDS: TORSEMIDE 100 MG TAB PO SCH (13:31)
[2017-02-17] MEDS: predniSONE 2.5 MG TAB PO SCH (13:31)
[2017-02-17 14:00] VITALS: BP 150/65
[2017-02-17] MEDS ORDERED: VANCOMYCIN HCL 750 MG, VIAL MATE ADAPTER 1 EACH in D5W 250 ML IV SCH (14:00)
--- NOTE | 2017-02-17 14:22 | PHACANCOPD ---
PHARMACY VANCOMYCIN DOSING Pt Demographics Demographics Patient Age:66 , Weight:102.800 , Gender: female Adjusted Body Weight Date: 02/17/17, Adjusted Body Weight: [71.2] Kg Events Past 24 Hours Events Past 24 Hours: NO: Dialysis, Diuretic Therapy, Change in CrCl, Fever, Elevation in WBC, Pending Diagnostics, Pending Procedures, Other Vancomycin Vancomycin indication: CELLULITIS ADJACENT TO LEFT EYE Vancomycin Target Ranges: 15-20 mcg/ml Vancomycin Load Y/N: Yes Load Dose Date Time Vancomycin Load Dose: 2G IV Date: 02/17/17 Time: 1600 Vancomycin Dose Date: 02/17/17. Current Vancomycin Dose: Intermittent Dosing?: No Labs Labs Item Value Date Time White Blood Count 6.6 10^3/uL 02/16/171907 White Blood Count 7.1 10^3/uL 02/17/17 0556 Creatinine 0.73 MG/DL 02/16/171907 Creatinine 0.63 MG/DL 02/17/17 0556 Micro Microbiology 02/16/17 Urine Culture - Final, Complete Creatinine Clearance Date:02/17/17. Creatinine Clearance: [76ML/MIN.]. Assessment and Plan Maintaining Current Dose?: Yes Reason for dose change: No Dose Change Pharmacist Note Pharmacist Note Date: 02/17/17. Pharmacist note: PT is a 66 year old female being treated for cellulitis adjacent to left eye goal trough 15-20mcg/ml. She has been treated with vancomycin here at [facility] in the past. To achieve goal a loading dose of 2g was started 02/17 @16:00. Maintenance therapy will consist of 1g iv every 12 hours starting 02/18/17 @ 04:00. We will continue to monitor and adjust dose as needed. SUDHA ESPARZA PHARMACY Feb 17, 2017 14:22
[2017-02-17] MEDS: LevoFLOXacin IV 500 MG in APPROPRIATE DILUENT 1 EA IV SCH (14:36)
--- NOTE | 2017-02-17 15:47 | IPNPDOC ---
Text Note Date of Service The patient was seen on 02/17/17. NOTE Subjective: Pt states she occasionally forgets to take her seizure medications. States she has been having frequent seizures recently. Objective: Vitals: (see below) General: No acute distress, laying comfortably in bed. HEENT: Moist mucous membranes. Laceration on the lateral region of her left per region. Does have the swelling of her upper orbital region. No erythema. No induration. No pain with movement of eyes. Neck: No JVD or lymphadenopathy Cardiac: RRR, No murmurs Pulm: Clear to auscultation b/l. No wheezing, rhonchi Abd: NT/ND + BS Ext: No edema or cyanosis Strength 5/5 right side, 3/5 left side after cva. (Baseline). CN 2-12 intact. F to N intact Negative pronator drift. Negative Babinki. AAO x3 Labs (see below) Images: CT head 02/16/17 Impression: No acute hemorrhage or infarct. Two focal stable chronic lacunar infarcts in the right basal ganglia described. Findings are consistent with age-related atrophy and chronic small vessel ischemic disease. CT Cervical spine 02/16/17 Impression: No acute fracture or traumatic injury. Severe degenerative disc disease at C5/C6, C6/C7, and C7/T1. CT Maxillofacial 02/16/17 Impression: 1. No acute osseous abnormality. 2. Focal superficial soft tissue swelling in the left frontal region, with a soft tissue nodule lateral to the left orbit as described. Dacryoadenitis and cellulitis cannot be excluded. Clinical correlation is recommended. Assessment/Plan 1. Recurrent seizures- likely secondary to noncompliance. Patient's Depakote level is subtherapeutic. Discussed with Dr. Nguyen with recommendations to increase the p.m. dose to 500, maintain a.m. dose to 250. CT head (see above). Neuro checks every 4. 2. Laceration of the left periorbital region with subsequent swelling/cellulitis - patient has been started on vancomycin and Levaquin. 3. History of congestive heart failure compensated. Continue home diuretics 4. History of CAD stable continue home meds 5. Insulin-dependent diabetes mellitus continue Levemir/sliding scale insulin 6. Hypertension continue home meds 7. H/o cva with left sided weakness. Stable. No new neuro def. DVT prophy: SCDs VS,Fishbone, I+O VS, Fishbone, I+O Laboratory Tests 02/16/17 19:08 Red Blood Count 3.26 L, Mean Corpuscular Volume 90.8, Mean Corpuscular Hemoglobin 29.1, Mean Corpuscular Hemoglobin Concent 32.1, Red Cell Distribution Width 12.7, Neutrophils (%) (Auto) 65.9, Lymphocytes (%) (Auto) 20.4 L, Monocytes (%) (Auto) 11.0 H, Eosinophils (%) (Auto) 2.1, Basophils (%) ( Auto) 0.3, Neutrophils # (Auto) 4.3, Lymphocytes # (Auto) 1.3 L, Monocytes # ( Auto) 0.7, Eosinophils # (Auto) 0.1, Basophils # (Auto) 0.0 02/17/17 05:56 Red Blood Count 2.98 L, Mean Corpuscular Volume 88.9, Mean Corpuscular Hemoglobin 29.2, Mean Corpuscular Hemoglobin Concent 32.8, Red Cell Distribution Width 12.9, Neutrophils (%) (Auto) 69.9 H, Lymphocytes (%) (Auto) 15.5 L, Monocytes (%) (Auto) 12.3 H, Eosinophils (%) (Auto) 1.6, Basophils (%) ( Auto) 0.3, Neutrophils # (Auto) 5.0, Lymphocytes # (Auto) 1.1 L, Monocytes # ( Auto) 0.9 H, Eosinophils # (Auto) 0.1, Basophils # (Auto) 0.0, Calcium Level 8.4 L Vital Signs Date Time Temp Pulse Resp B/P (MAP) Pulse Ox O2 Delivery O2 Flow Rate FiO2 02/17/17 10:26 18 02/17/17 09:48 Room Air 02/17/17 09:23 69 128/98 02/17/17 06:00 97.7 98 I&O- Last 24 Hours up to 6 AM 02/18/17 06:00 Intake Total 240 ml Output Total 125 ml Balance 115 ml TIFFANI MORENO MD Feb 17, 2017 15:47
[2017-02-17] MEDS: VANCOMYCIN HCL 1,000 MG, VIAL MATE ADAPTER 1 EACH in D5W 250 ML IV SCH (16:18)
[2017-02-17] MEDS ORDERED: VANCOMYCIN HCL 1,000 MG, VIAL MATE ADAPTER 1 EACH in D5W 250 ML IV ONE (17:00)
[2017-02-17] MEDS: DIVALPROEX 500 MG TAB PO SCH (21:00)
[2017-02-17] MEDS: ACETAMINOPHEN TAB 650MG DOSE (2X325MG) PO PRN (21:27)
[2017-02-17] MEDS: LIDOCAINE 5% OINT 30 GM TOP PRN (23:21)
[2017-02-18] MEDS: VANCOMYCIN HCL 1,000 MG, VIAL MATE ADAPTER 1 EACH in D5W 250 ML IV SCH ×2 (03:50→16:55)
[2017-02-18 06:00] VITALS: BP 148/70
[2017-02-18] MEDS: ACETAMINOPHEN TAB 650MG DOSE (2X325MG) PO PRN (06:06)
[2017-02-18 06:17] LABS: ANION GAP 7 MEQ/L (8-16); BLOOD UREA NITROGEN 25 MG/DL (7-18); CALCIUM LEVEL 7.9 MG/DL (8.8-10.2); CARBON DIOXIDE LEVEL 33 MEQ/L (21-32); CHLORIDE LEVEL 101 MEQ/L (98-107); CREATININE FOR GFR 0.77 MG/DL (0.55-1.02); GLOMERULAR FILTRATION RATE > 60.0 (>45); GLUCOSE, FASTING 86 MG/DL (80-110); POTASSIUM SERUM 3.4 MEQ/L (3.5-5.1); SODIUM LEVEL 141 MEQ/L (136-145)
[2017-02-18 06:35] LABS: BASO % 0.3 % (0.0-1.0); EOS # 0.3 10^3/uL (0.0-0.50); EOS % 4.3 % (0.0-3.0); IMMATURE GRANULOCYTE % 0.5 % (0-0); LYMPH # 1.7 10^3/uL (1.5-4.5); LYMPH % 27.7 % (24.0-44.0); MEAN CORPUSCULAR HEMOGLOBIN 29.5 pg (27.0-33.0); MEAN CORPUSCULAR HGB CONC 32.6 g/dl (32.0-36.5); MEAN CORPUSCULAR VOLUME 90.5 fl (80.0-96.0); MONO # 0.9 10^3/uL (0.0-0.8); NEUTROPHILS # 3.2 10^3/uL (1.8-7.7); NEUTROPHILS % 53.2 % (36.0-66.0); PLATELET COUNT, AUTOMATED 316 10^3/uL (150-450); RED CELL DISTRIBUTION WIDTH 12.7 % (11.5-14.5); WHITE BLOOD COUNT 6.1 10^3/uL (4.0-10.0)
[2017-02-18] MEDS: HumaLOG INSULIN (NovoLOG) PER UNIT SC SCH ×4 (07:30→19:58)
[2017-02-18] MEDS: SYMBICORT 160/4.5MCG INHALER 6GM INH SCH ×2 (07:40→20:19)
[2017-02-18] MEDS ORDERED: POTASSIUM CHLORIDE 10 MEQ SR TABLET PO ONE (08:00)
[2017-02-18] MEDS: LEVEMIR (INSULIN DETEMIR) 1 UNITS/0.01ML SC SCH ×2 (09:00→21:00)
[2017-02-18] MEDS: HEPARIN SOD (PORCINE) 5000 UNITS/ML VIAL SQ SCH ×2 (10:56→21:31)
[2017-02-18] MEDS: BRIMONIDINE 0.15% OPHTH SOLN 5 ML OU SCH ×2 (10:56→21:30)
[2017-02-18] MEDS: oxyBUTYnin *DITROPAN XL* 5 MG TABCR PO SCH (10:57)
[2017-02-18] MEDS: PANTOPRAZOLE 40MG TAB (PROTONIX) PO SCH (10:58)
[2017-02-18] MEDS: DIVALPROEX 250 MG TAB PO SCH (10:58)
[2017-02-18] MEDS: LOSARTAN 50 MG TAB PO SCH ×2 (10:59→21:34)
[2017-02-18] MEDS: **hydrALAZINE** 50 MG TAB PO SCH ×3 (11:00→21:32)
[2017-02-18] MEDS: PHENYTOIN ER 100 MG CAP PO SCH ×2 (11:00→21:35)
[2017-02-18] MEDS: FERROUS SULFATE 325MG TAB PO SCH ×2 (11:01→21:33)
[2017-02-18] MEDS: metFORMIN (GLUCOPHAGE) 1000 MG TABLET PO SCH ×2 (11:01→17:46)
[2017-02-18] MEDS: METOPROLOL TARTRATE 100 MG TAB PO SCH ×2 (11:01→21:34)
[2017-02-18] MEDS: CLOPIDOGREL 75 MG TAB PO SCH (11:01)
[2017-02-18] MEDS: TROSPIUM 20 MG TAB PO SCH ×2 (11:01→21:33)
[2017-02-18] MEDS: amLODIPine 5 MG TAB PO SCH ×2 (11:02→21:33)
[2017-02-18] MEDS: SODIUM CHLORIDE 0.9% INJ 10 ML SYR IV SCH (11:03)
[2017-02-18] MEDS: ANEXSIA, NORCO 7.5MG/325MG TABLET(HYDROCODONE/APAP) PO PRN ×2 (11:04→19:52)
[2017-02-18] MEDS: LIDOCAINE 5% OINT 30 GM TOP PRN ×2 (11:23→21:30)
--- NOTE | 2017-02-18 11:53 | IPNPDOC ---
Text Note Date of Service The patient was seen on 02/18/17. NOTE Subjective: Pt states swelling of left eye has significantly improved. Denies any complaints. Objective: Vitals: (see below) General: No acute distress, laying comfortably in bed. HEENT: Moist mucous membranes. Laceration on the lateral region of her left per region. Does have the swelling of her upper orbital region improved. No erythema. No induration. No pain with movement of eyes. Neck: No JVD or lymphadenopathy Cardiac: RRR, No murmurs Pulm: Clear to auscultation b/l. No wheezing, rhonchi Abd: NT/ND + BS Ext: No edema or cyanosis Strength 5/5 RUE/RLE. 3/5 L side after cva and BLE. CN 2-12 intact. F to N intact Negative pronator drift. Negative Babinki. AAO x3 Labs (see below) Images: CT head 02/16/17 Impression: No acute hemorrhage or infarct. Two focal stable chronic lacunar infarcts in the right basal ganglia described. Findings are consistent with age-related atrophy and chronic small vessel ischemic disease. CT Cervical spine 02/16/17 Impression: No acute fracture or traumatic injury. Severe degenerative disc disease at C5/C6, C6/C7, and C7/T1. CT Maxillofacial 02/16/17 Impression: 1. No acute osseous abnormality. 2. Focal superficial soft tissue swelling in the left frontal region, with a soft tissue nodule lateral to the left orbit as described. Dacryoadenitis and cellulitis cannot be excluded. Clinical correlation is recommended. Assessment/Plan 1. Recurrent seizures- likely secondary to noncompliance. Patient's Depakote level is subtherapeutic. Discussed with Dr. Nguyen with recommendations to increase the p.m. dose to 500, maintain a.m. dose to 250. CT head (see above). Neuro checks every 4. 2. Laceration of the left periorbital region with subsequent swelling/cellulitis - patient has been started on vancomycin and Levaquin. Swelling improving. 3. History of congestive heart failure compensated. Continue home diuretics 4. History of CAD stable continue home meds 5. Insulin-dependent diabetes mellitus continue Levemir/sliding scale insulin 6. Hypertension continue home meds 7. H/o cva with left sided weakness. Stable. No new neuro def. DVT prophy: SCDs Pending placement vs home care/PT. VS,Fishbone, I+O VS, Fishbone, I+O Laboratory Tests 02/18/17 05:17 Calcium Level 7.9 L 02/18/17 06:07 Red Blood Count 2.85 L, Mean Corpuscular Volume 90.5, Mean Corpuscular Hemoglobin 29.5, Mean Corpuscular Hemoglobin Concent 32.6, Red Cell Distribution Width 12.7, Neutrophils (%) (Auto) 53.2, Lymphocytes (%) (Auto) 27.7, Monocytes (%) (Auto) 14.0 H, Eosinophils (%) (Auto) 4.3 H, Basophils (%) ( Auto) 0.3, Neutrophils # (Auto) 3.2, Lymphocytes # (Auto) 1.7, Monocytes # (Auto ) 0.9 H, Eosinophils # (Auto) 0.3, Basophils # (Auto) 0.0 Vital Signs Date Time Temp Pulse Resp B/P (MAP) Pulse Ox O2 Delivery O2 Flow Rate FiO2 02/18/17 11:04 18 02/18/17 11:02 70 148/70 02/18/17 06:00 97.7 99 Room Air I&O- Last 24 Hours up to 6 AM 02/19/17 06:00 Intake Total 550 ml Output Total 150 ml Balance 400 ml TIFFANI MORENO MD Feb 18, 2017 11:53
[2017-02-18] MEDS: PRENATAL VITAMINS CHEWABLE TABLET PO SCH (12:57)
[2017-02-18] MEDS: TORSEMIDE 100 MG TAB PO SCH (12:57)
[2017-02-18] MEDS: predniSONE 2.5 MG TAB PO SCH (12:57)
[2017-02-18] MEDS: ASPIRIN 325 MG TAB PO SCH (12:58)
[2017-02-18 14:00] VITALS: BP 118/55
[2017-02-18] MEDS: LevoFLOXacin IV 500 MG in APPROPRIATE DILUENT 1 EA IV SCH (15:37)
[2017-02-18] MEDS: ROSUVASTATIN 10 MG TAB (CRESTOR) PO SCH (21:32)
[2017-02-18] MEDS: DIVALPROEX 500 MG TAB PO SCH (21:35)
[2017-02-18 22:00] VITALS: BP 155/67
--- NOTE | 2017-02-19 00:21 | ECGEPIP ---
Stationary ECG Study [facility] Test Date: 2017-02-17 Pat Name: DEE DEE SCHULTZ Department: Room: [place] [address] Gender: F Information Management Specialist: : [id number] Requested By: MATI MEYERS Order Number: [id number] Reading MD: Ilir Luis Measurements Intervals [place] Rate: 77 P: 60 AR: 214 QRS: 11 QRSD: 93 T: 214 QT: 369 QTc: 419 Interpretive Statements SINUS RHYTHM WITH FIRST DEGREE AV BLOCK ST DEVIATION AND MARKED T-WAVE ABNORMALITY, CONSIDER ISCHEMIA Q wave Noted in lead 3 Compared to the last 3 tracings, no significant changes. There is artifact noted in the right precordial leads Electronically Signed On 02-19-2017 0:21:37 EST by Ilir Luis
[2017-02-19] MEDS: VANCOMYCIN HCL 1,000 MG, VIAL MATE ADAPTER 1 EACH in D5W 250 ML IV SCH ×2 (03:48→16:39)
[2017-02-19] MEDS: ANEXSIA, NORCO 7.5MG/325MG TABLET(HYDROCODONE/APAP) PO PRN ×2 (04:50→22:04)
[2017-02-19] MEDS: SODIUM CHLORIDE 0.9% INJ 10 ML SYR IV SCH (05:44)
[2017-02-19 06:00] VITALS: BP 143/64
[2017-02-19 06:09] LABS: BASO % 0.2 % (0.0-1.0); EOS # 0.4 10^3/uL (0.0-0.50); EOS % 5.9 % (0.0-3.0); IMMATURE GRANULOCYTE % 0.3 % (0-0); LYMPH # 1.7 10^3/uL (1.5-4.5); LYMPH % 26.1 % (24.0-44.0); MEAN CORPUSCULAR HEMOGLOBIN 28.8 pg (27.0-33.0); MEAN CORPUSCULAR HGB CONC 31.9 g/dl (32.0-36.5); MEAN CORPUSCULAR VOLUME 90.3 fl (80.0-96.0); MONO % 15.2 % (0.0-5.0); NEUTROPHILS # 3.4 10^3/uL (1.8-7.7); NEUTROPHILS % 52.3 % (36.0-66.0); PLATELET COUNT, AUTOMATED 318 10^3/uL (150-450); WHITE BLOOD COUNT 6.6 10^3/uL (4.0-10.0)
[2017-02-19 06:38] LABS: ANION GAP 10 MEQ/L (8-16); BLOOD UREA NITROGEN 28 MG/DL (7-18); CALCIUM LEVEL 8.1 MG/DL (8.8-10.2); CARBON DIOXIDE LEVEL 29 MEQ/L (21-32); CHLORIDE LEVEL 103 MEQ/L (98-107); CREATININE FOR GFR 0.92 MG/DL (0.55-1.02); GLOMERULAR FILTRATION RATE > 60.0 (>45); GLUCOSE, FASTING 68 MG/DL (80-110); POTASSIUM SERUM 3.5 MEQ/L (3.5-5.1); SODIUM LEVEL 142 MEQ/L (136-145)
[2017-02-19] MEDS: HumaLOG INSULIN (NovoLOG) PER UNIT SC SCH ×4 (07:30→21:22)
[2017-02-19] MEDS: LEVEMIR (INSULIN DETEMIR) 1 UNITS/0.01ML SC SCH ×2 (09:00→21:00)
[2017-02-19] MEDS: HEPARIN SOD (PORCINE) 5000 UNITS/ML VIAL SQ SCH ×2 (10:53→21:59)
[2017-02-19] MEDS: LIDOCAINE 5% OINT 30 GM TOP PRN (10:55)
[2017-02-19] MEDS: BRIMONIDINE 0.15% OPHTH SOLN 5 ML OU SCH ×2 (10:55→22:03)
[2017-02-19] MEDS: predniSONE 2.5 MG TAB PO SCH (10:56)
[2017-02-19] MEDS: ASPIRIN 325 MG TAB PO SCH (10:56)
[2017-02-19] MEDS: PANTOPRAZOLE 40MG TAB (PROTONIX) PO SCH (10:56)
[2017-02-19] MEDS: PRENATAL VITAMINS CHEWABLE TABLET PO SCH (10:56)
[2017-02-19] MEDS: TROSPIUM 20 MG TAB PO SCH ×2 (10:56→22:00)
[2017-02-19] MEDS: METOPROLOL TARTRATE 100 MG TAB PO SCH ×2 (10:57→22:01)
[2017-02-19] MEDS: metFORMIN (GLUCOPHAGE) 1000 MG TABLET PO SCH ×2 (10:57→17:36)
[2017-02-19] MEDS: LOSARTAN 50 MG TAB PO SCH ×2 (10:58→22:02)
[2017-02-19] MEDS: PHENYTOIN ER 100 MG CAP PO SCH ×2 (10:58→22:00)
[2017-02-19] MEDS: TORSEMIDE 100 MG TAB PO SCH (10:58)
[2017-02-19] MEDS: FERROUS SULFATE 325MG TAB PO SCH ×2 (10:59→22:00)
[2017-02-19] MEDS: DIVALPROEX 250 MG TAB PO SCH (10:59)
[2017-02-19] MEDS: CLOPIDOGREL 75 MG TAB PO SCH (10:59)
[2017-02-19] MEDS: **hydrALAZINE** 50 MG TAB PO SCH ×3 (10:59→22:01)
[2017-02-19] MEDS: oxyBUTYnin *DITROPAN XL* 5 MG TABCR PO SCH (11:00)
[2017-02-19] MEDS: amLODIPine 5 MG TAB PO SCH ×2 (11:00→22:02)
[2017-02-19] MEDS ORDERED: NAPROXEN 250 MG TAB PO ONE (11:15)
--- NOTE | 2017-02-19 11:31 | IPNPDOC ---
Text Note Date of Service The patient was seen on 02/19/17. NOTE Subjective: Pt states swelling of left eye is improving, although some tenderness at the laceration site. Denies any complaints. Objective: Vitals: (see below) General: No acute distress, laying comfortably in bed. HEENT: Moist mucous membranes. Laceration on the lateral region of her orbital region.Swelling improved. No erythema. No induration. No pain with movement of eyes. No wamrth/induration. Neck: No JVD or lymphadenopathy Cardiac: RRR, No murmurs Pulm: Clear to auscultation b/l. No wheezing, rhonchi Abd: NT/ND + BS Ext: No edema or cyanosis Strength 5/5 RUE/RLE. 3/5 L side after cva and BLE. CN 2-12 intact. F to N intact Negative pronator drift. Negative Babinki. AAO x3 Labs (see below) Images: CT head 02/16/17 Impression: No acute hemorrhage or infarct. Two focal stable chronic lacunar infarcts in the right basal ganglia described. Findings are consistent with age-related atrophy and chronic small vessel ischemic disease. CT Cervical spine 02/16/17 Impression: No acute fracture or traumatic injury. Severe degenerative disc disease at C5/C6, C6/C7, and C7/T1. CT Maxillofacial 02/16/17 Impression: 1. No acute osseous abnormality. 2. Focal superficial soft tissue swelling in the left frontal region, with a soft tissue nodule lateral to the left orbit as described. Dacryoadenitis and cellulitis cannot be excluded. Clinical correlation is recommended. Assessment/Plan 1. Recurrent seizures- likely secondary to noncompliance. Patient's Depakote level is subtherapeutic. Discussed with Dr. Nguyen with recommendations to increase the p.m. dose to 500, maintain a.m. dose to 250. CT head (see above). 2. Laceration of the left periorbital region with subsequent swelling/cellulitis - patient has been started on vancomycin and Levaquin. Swelling improving. Naprosyn for pain. 3. History of congestive heart failure compensated. Continue home diuretics 4. History of CAD stable continue home meds 5. Insulin-dependent diabetes mellitus continue Levemir/sliding scale insulin 6. Hypertension continue home meds 7. Chronic lower back pain x 3m -no alarming symptoms. CT Lumbar spine to r/o fx. 8. H/o cva with left sided weakness. Stable. No new neuro def. DVT prophy: SCDs Pending placement vs home care/PT. VS,Fishbone, I+O VS, Fishbone, I+O Laboratory Tests 02/19/17 05:42 Red Blood Count 2.88 L, Mean Corpuscular Volume 90.3, Mean Corpuscular Hemoglobin 28.8, Mean Corpuscular Hemoglobin Concent 31.9 L, Red Cell Distribution Width 13.0, Neutrophils (%) (Auto) 52.3, Lymphocytes (%) (Auto) 26.1, Monocytes (%) (Auto) 15.2 H, Eosinophils (%) (Auto) 5.9 H, Basophils (%) ( Auto) 0.2, Neutrophils # (Auto) 3.4, Lymphocytes # (Auto) 1.7, Monocytes # (Auto ) 1.0 H, Eosinophils # (Auto) 0.4, Basophils # (Auto) 0.0, Calcium Level 8.1 L Vital Signs Date Time Temp Pulse Resp B/P (MAP) Pulse Ox O2 Delivery O2 Flow Rate FiO2 02/19/17 11:00 78 136/60 02/19/17 06:00 98.0 18 95 Room Air I&O- Last 24 Hours up to 6 AM 02/20/17 06:00 Intake Total 240 ml Output Total 0 ml Balance 240 ml TIFFANI MORENO MD Feb 19, 2017 11:31
[2017-02-19] MEDS: SYMBICORT 160/4.5MCG INHALER 6GM INH SCH ×2 (12:21→20:09)
--- NOTE | 2017-02-19 13:37 | REP ---
CT LUMBAR SPINE WITHOUT CONTRAST: HISTORY: Back pain. A diffuse disc bulge is present at the L1-2 level. There is minimal compression of the thecal sac. The L2 nerves exit the neural foramina without compression. A diffuse disc bulge is present at the L2-3 level. There is minimal compression of the thecal sac. The L2 nerves exit the neural foramina without compression. A diffuse disc bulge is present at the L3-4 level. There is minimal compression of the thecal sac. The L3 nerves exit the neural foramina without compression. A diffuse disc bulge is present at the L4-5 level. There is hypertrophy of the ligamenta flava and posterior articulating facets. There are 7 mm of grade 1 spondylolisthesis of L4 on L5. These findings produce mild central canal stenosis. There is compression of the L4 nerves in the neural foramina. A diffuse disc bulge is present at the L5-S1 level. There is minimal compression of the thecal sac. There is hypertrophy of the posterior articulating facets. There are 4 mm of grade 1 spondylolisthesis of L5 on S1. There is compression of the L5 nerves in the neural foramina. The lumbar intervertebral discs are decreased in height. Vacuum phenomenon is present at the L3-4 and L4-5 levels. These findings are consistent with disc degeneration. IMPRESSION: 1. Diffuse disc bulges at the L1-2 through L3-4 levels with minimal thecal sac compression. 2. Mild central canal stenosis at the L4-5 level secondary to disc bulge ligamentous and facet hypertrophy and grade 1 spondylolisthesis. There is compression of the L4 nerves in the neural foramina. 3. Diffuse disc bulge at the L5-S1 level with minimal thecal sac compression. There is grade I spondylolisthesis of L5 on S1. There is compression of the L5 nerves in the neural foramina. Signed by Prosper Winston MD 02/19/2017 02:31 P
[2017-02-19 14:00] VITALS: BP 116/55
[2017-02-19] MEDS: LevoFLOXacin IV 500 MG in APPROPRIATE DILUENT 1 EA IV SCH (14:11)
[2017-02-19] MEDS: DIVALPROEX 500 MG TAB PO SCH (21:59)
[2017-02-19 22:00] VITALS: BP 140/62
[2017-02-19] MEDS: ROSUVASTATIN 10 MG TAB (CRESTOR) PO SCH (22:00)
[2017-02-19] MEDS: NAPROXEN 250 MG TAB PO SCH (22:03)
[2017-02-20] MEDS: VANCOMYCIN HCL 1,000 MG, VIAL MATE ADAPTER 1 EACH in D5W 250 ML IV SCH (03:50)
[2017-02-20] MEDS: ANEXSIA, NORCO 7.5MG/325MG TABLET(HYDROCODONE/APAP) PO PRN ×2 (03:51→15:13)
[2017-02-20] MEDS: SODIUM CHLORIDE 0.9% INJ 10 ML SYR IV PRN (05:35)
[2017-02-20 05:46] LABS: BASO % 0.3 % (0.0-1.0); EOS # 0.4 10^3/uL (0.0-0.50); EOS % 7.1 % (0.0-3.0); IMMATURE GRANULOCYTE % 0.2 % (0-0); LYMPH # 1.4 10^3/uL (1.5-4.5); LYMPH % 22.6 % (24.0-44.0); MEAN CORPUSCULAR HEMOGLOBIN 29.3 pg (27.0-33.0); MEAN CORPUSCULAR HGB CONC 31.8 g/dl (32.0-36.5); MONO % 16.8 % (0.0-5.0); NEUTROPHILS # 3.3 10^3/uL (1.8-7.7); PLATELET COUNT, AUTOMATED 288 10^3/uL (150-450); RED CELL DISTRIBUTION WIDTH 13.1 % (11.5-14.5); WHITE BLOOD COUNT 6.2 10^3/uL (4.0-10.0)
[2017-02-20 06:00] VITALS: BP 157/96
[2017-02-20 06:05] LABS: ANION GAP 7 MEQ/L (8-16); BLOOD UREA NITROGEN 35 MG/DL (7-18); CALCIUM LEVEL 7.8 MG/DL (8.8-10.2); CARBON DIOXIDE LEVEL 31 MEQ/L (21-32); CHLORIDE LEVEL 103 MEQ/L (98-107); CREATININE FOR GFR 0.88 MG/DL (0.55-1.02); GLOMERULAR FILTRATION RATE > 60.0 (>45); GLUCOSE, FASTING 140 MG/DL (80-110); POTASSIUM SERUM 3.9 MEQ/L (3.5-5.1); SODIUM LEVEL 141 MEQ/L (136-145)
--- NOTE | 2017-02-20 06:40 | IPNPDOC ---
Text Note Date of Service The patient was seen on 02/20/17. NOTE Down trending Hgb Type and Screen Ordered Guiac ordered Heparin Held VS,Fishbone, I+O VS, Fishbone, I+O Laboratory Tests 02/20/17 05:34 Red Blood Count 2.63 L, Mean Corpuscular Volume 92.0, Mean Corpuscular Hemoglobin 29.3, Mean Corpuscular Hemoglobin Concent 31.8 L, Red Cell Distribution Width 13.1, Neutrophils (%) (Auto) 53.0, Lymphocytes (%) (Auto) 22.6 L, Monocytes (%) (Auto) 16.8 H, Eosinophils (%) (Auto) 7.1 H, Basophils (% ) (Auto) 0.3, Neutrophils # (Auto) 3.3, Lymphocytes # (Auto) 1.4 L, Monocytes # (Auto) 1.0 H, Eosinophils # (Auto) 0.4, Basophils # (Auto) 0.0, Calcium Level 7.8 L Vital Signs Date Time Temp Pulse Resp B/P (MAP) Pulse Ox O2 Delivery O2 Flow Rate FiO2 02/20/17 04:21 17 Room Air 02/19/17 22:01 84 02/19/17 22:01 140/62 02/19/17 22:00 97.7 95 ZECHARIAH LITTLEJOHN MD Feb 20, 2017 06:40
[2017-02-20] MEDS: metFORMIN (GLUCOPHAGE) 1000 MG TABLET PO SCH ×2 (08:23→17:00)
[2017-02-20] MEDS: PHENYTOIN ER 100 MG CAP PO SCH ×2 (08:23→20:49)
[2017-02-20] MEDS: **hydrALAZINE** 50 MG TAB PO SCH ×3 (08:24→20:50)
[2017-02-20] MEDS: TROSPIUM 20 MG TAB PO SCH ×2 (08:24→20:50)
[2017-02-20] MEDS: LOSARTAN 50 MG TAB PO SCH ×2 (08:24→20:50)
[2017-02-20] MEDS: CLOPIDOGREL 75 MG TAB PO SCH (08:24)
[2017-02-20] MEDS: oxyBUTYnin *DITROPAN XL* 5 MG TABCR PO SCH (08:24)
[2017-02-20] MEDS: METOPROLOL TARTRATE 100 MG TAB PO SCH ×2 (08:24→20:51)
[2017-02-20] MEDS: DIVALPROEX 250 MG TAB PO SCH (08:25)
[2017-02-20] MEDS: amLODIPine 5 MG TAB PO SCH ×2 (08:25→20:50)
[2017-02-20] MEDS: PANTOPRAZOLE 40MG TAB (PROTONIX) PO SCH (08:25)
[2017-02-20] MEDS: FERROUS SULFATE 325MG TAB PO SCH ×2 (08:25→20:51)
[2017-02-20] MEDS: NAPROXEN 250 MG TAB PO SCH ×2 (08:26→20:51)
[2017-02-20] MEDS: HumaLOG INSULIN (NovoLOG) PER UNIT SC SCH ×4 (08:26→20:58)
[2017-02-20] MEDS: LEVEMIR (INSULIN DETEMIR) 1 UNITS/0.01ML SC SCH ×2 (08:27→20:52)
[2017-02-20] MEDS: BRIMONIDINE 0.15% OPHTH SOLN 5 ML OU SCH ×2 (08:27→20:52)
[2017-02-20] MEDS: SODIUM CHLORIDE 0.9% INJ 10 ML SYR IV SCH (08:27)
[2017-02-20] MEDS: SYMBICORT 160/4.5MCG INHALER 6GM INH SCH ×2 (09:00→20:04)
[2017-02-20] MEDS: PRENATAL VITAMINS CHEWABLE TABLET PO SCH (11:05)
[2017-02-20] MEDS: predniSONE 2.5 MG TAB PO SCH (11:05)
[2017-02-20] MEDS: ASPIRIN 325 MG TAB PO SCH (11:05)
[2017-02-20] MEDS: DOXYCYCLINE HYCLATE 100 MG TAB PO SCH ×2 (11:05→20:51)
--- NOTE | 2017-02-20 11:56 | IPNPDOC ---
Text Note Date of Service The patient was seen on 02/20/17. NOTE Subjective: Pt states swelling of left eye is improving, although some tenderness at the laceration site. Denies any complaints. Objective: Vitals: (see below) General: No acute distress, laying comfortably in bed. HEENT: Moist mucous membranes. Laceration on the lateral region of her orbital region.Swelling improved. No erythema. No induration. No pain with movement of eyes. No wamrth/induration. Neck: No JVD or lymphadenopathy Cardiac: RRR, No murmurs Pulm: Clear to auscultation b/l. No wheezing, rhonchi Abd: NT/ND + BS Ext: 1+ pitting edema BLE. No cyanosis Strength 5/5 RUE/RLE. 3/5 L side after cva and BLE. CN 2-12 intact. F to N intact Negative pronator drift. Negative Babinki. AAO x3 Labs (see below) Images: CT head 02/16/17 Impression: No acute hemorrhage or infarct. Two focal stable chronic lacunar infarcts in the right basal ganglia described. Findings are consistent with age-related atrophy and chronic small vessel ischemic disease. CT Cervical spine 02/16/17 Impression: No acute fracture or traumatic injury. Severe degenerative disc disease at C5/C6, C6/C7, and C7/T1. CT Maxillofacial 02/16/17 Impression: 1. No acute osseous abnormality. 2. Focal superficial soft tissue swelling in the left frontal region, with a soft tissue nodule lateral to the left orbit as described. Dacryoadenitis and cellulitis cannot be excluded. Clinical correlation is recommended. CT Lumbar spine 02/19/17 IMPRESSION: 1. Diffuse disc bulges at the L1-2 through L3-4 levels with minimal thecal sac compression. 2. Mild central canal stenosis at the L4-5 level secondary to disc bulge ligamentous and facet hypertrophy and grade 1 spondylolisthesis. There is compression of the L4 nerves in the neural foramina. 3. Diffuse disc bulge at the L5-S1 level with minimal thecal sac compression. There is grade I spondylolisthesis of L5 on S1. There is compression of the L5 nerves in the neural foramina. Assessment/Plan 1. Recurrent seizures- likely secondary to noncompliance. Patient's Depakote level is subtherapeutic. Discussed with Dr. Nguyen with recommendations to increase the p.m. dose to 500, maintain a.m. dose to 250. CT head (see above). 2. Laceration of the left periorbital region with subsequent swelling/cellulitis - patient has been started on vancomycin and Levaquin--> change to doxy. Swelling improving. Naprosyn for pain. 3. History of congestive heart failure compensated. Continue home diuretics 4. History of CAD stable continue home meds 5. Insulin-dependent diabetes mellitus continue Levemir/sliding scale insulin 6. Hypertension continue home meds 7. Chronic lower back pain x 3m -no alarming symptoms. CT Lumbar spine (see above). conservative measures. 8. H/o cva with left sided weakness. Stable. No new neuro def. 9. Chronic anemia - Anemia panel. Likely dilutional. Baseline Hb 8.3. FOBT. No bleeding noted. 10. LE edema - U/s to r/o dvt. DVT prophy: SCDs Pending placement vs home care/PT. VS,Fishbone, I+O VS, Fishbone, I+O Laboratory Tests 02/20/17 05:34 Red Blood Count 2.63 L, Mean Corpuscular Volume 92.0, Mean Corpuscular Hemoglobin 29.3, Mean Corpuscular Hemoglobin Concent 31.8 L, Red Cell Distribution Width 13.1, Neutrophils (%) (Auto) 53.0, Lymphocytes (%) (Auto) 22.6 L, Monocytes (%) (Auto) 16.8 H, Eosinophils (%) (Auto) 7.1 H, Basophils (% ) (Auto) 0.3, Neutrophils # (Auto) 3.3, Lymphocytes # (Auto) 1.4 L, Monocytes # (Auto) 1.0 H, Eosinophils # (Auto) 0.4, Basophils # (Auto) 0.0, Calcium Level 7.8 L Vital Signs Date Time Temp Pulse Resp B/P (MAP) Pulse Ox O2 Delivery O2 Flow Rate FiO2 02/20/17 06:00 97.8 75 20 157/96 (116) 95 Room Air I&O- Last 24 Hours up to 6 AM 02/21/17 06:00 Output Total 200 ml Balance -200 ml TIFFANI MORENO MD Feb 20, 2017 11:56
[2017-02-20] MEDS ORDERED: TORSEMIDE (DEMADEX) 50 MG PER 1/2 TAB PO SCH (12:00)
[2017-02-20 14:00] VITALS: BP 135/62
--- NOTE | 2017-02-20 15:08 | REP ---
Bilateral lower extremity Duplex Doppler venous ultrasound: Real time compression and duplex Doppler interrogation of the bilateral lower extremity deep venous system is performed. Bilaterally, the common femoral, superficial femoral and popliteal veins are fully compressible with transducer pressure and demonstrate normal spontaneous and phasic flow, without evidence of deep venous thrombosis. Impression: No evidence of deep venous thrombosis of the bilateral lower extremity femoral popliteal venous system. Signed by Bello Alas MD 02/20/2017 03:01 P
[2017-02-20] MEDS: ACETAMINOPHEN TAB 650MG DOSE (2X325MG) PO PRN (19:52)
[2017-02-20] MEDS: ROSUVASTATIN 10 MG TAB (CRESTOR) PO SCH (20:50)
[2017-02-20] MEDS: DIVALPROEX 500 MG TAB PO SCH (20:51)
[2017-02-20 22:07] VITALS: BP 152/68
[2017-02-21] MEDS: ANEXSIA, NORCO 7.5MG/325MG TABLET(HYDROCODONE/APAP) PO PRN ×3 (04:32→21:07)
[2017-02-21 06:00] VITALS: BP 134/62
[2017-02-21 06:16] LABS: BASO % 0.2 % (0.0-1.0); EOS # 0.4 10^3/uL (0.0-0.50); EOS % 7.2 % (0.0-3.0); IMMATURE GRANULOCYTE % 0.5 % (0-0); LYMPH # 1.2 10^3/uL (1.5-4.5); LYMPH % 19.9 % (24.0-44.0); MEAN CORPUSCULAR HEMOGLOBIN 29.8 pg (27.0-33.0); MEAN CORPUSCULAR HGB CONC 32.2 g/dl (32.0-36.5); MEAN CORPUSCULAR VOLUME 92.4 fl (80.0-96.0); MONO # 0.8 10^3/uL (0.0-0.8); MONO % 13.7 % (0.0-5.0); NEUTROPHILS # 3.5 10^3/uL (1.8-7.7); NEUTROPHILS % 58.5 % (36.0-66.0); PLATELET COUNT, AUTOMATED 302 10^3/uL (150-450); RED CELL DISTRIBUTION WIDTH 13.2 % (11.5-14.5); RETIC HEMOGLOBIN EQUIVALENT 33.6 pg (24-36); RETICULOCYTE % 1.7 % (0.5-1.5)
[2017-02-21 06:47] LABS: ANION GAP 11 MEQ/L (8-16); BLOOD UREA NITROGEN 41 MG/DL (7-18); CALCIUM LEVEL 8.4 MG/DL (8.8-10.2); CARBON DIOXIDE LEVEL 24 MEQ/L (21-32); CHLORIDE LEVEL 105 MEQ/L (98-107); CREATININE FOR GFR 0.74 MG/DL (0.55-1.02); FERRITIN 20 NG/ML (8-252); GLOMERULAR FILTRATION RATE > 60.0 (>45); GLUCOSE, FASTING 89 MG/DL (80-110); PERCENT SATURATION 19.9 % (13.2-45.0); POTASSIUM SERUM 3.9 MEQ/L (3.5-5.1); SODIUM LEVEL 140 MEQ/L (136-145); TOTAL IRON BINDING CAPACITY 267 UG/DL (250-450)
[2017-02-21] MEDS: HumaLOG INSULIN (NovoLOG) PER UNIT SC SCH ×4 (07:19→21:13)
[2017-02-21] MEDS: SYMBICORT 160/4.5MCG INHALER 6GM INH SCH ×2 (07:27→19:22)
[2017-02-21] MEDS: LEVEMIR (INSULIN DETEMIR) 1 UNITS/0.01ML SC SCH ×2 (09:00→21:00)
[2017-02-21] MEDS: SODIUM CHLORIDE 0.9% INJ 10 ML SYR IV SCH (09:00)
[2017-02-21] MEDS: PANTOPRAZOLE 40MG TAB (PROTONIX) PO SCH (09:08)
[2017-02-21] MEDS: LOSARTAN 50 MG TAB PO SCH ×2 (09:08→21:07)
[2017-02-21] MEDS: DIVALPROEX 250 MG TAB PO SCH (09:09)
[2017-02-21] MEDS: FERROUS SULFATE 325MG TAB PO SCH ×2 (09:09→21:07)
[2017-02-21] MEDS: CLOPIDOGREL 75 MG TAB PO SCH (09:09)
[2017-02-21] MEDS: **hydrALAZINE** 50 MG TAB PO SCH ×3 (09:09→21:05)
[2017-02-21] MEDS: metFORMIN (GLUCOPHAGE) 1000 MG TABLET PO SCH ×2 (09:10→17:33)
[2017-02-21] MEDS: PHENYTOIN ER 100 MG CAP PO SCH ×2 (09:10→21:06)
[2017-02-21] MEDS: METOPROLOL TARTRATE 100 MG TAB PO SCH ×2 (09:10→21:06)
[2017-02-21] MEDS: oxyBUTYnin *DITROPAN XL* 5 MG TABCR PO SCH (09:10)
[2017-02-21] MEDS: TROSPIUM 20 MG TAB PO SCH ×2 (09:10→21:07)
[2017-02-21] MEDS: DOXYCYCLINE HYCLATE 100 MG TAB PO SCH ×2 (09:11→21:04)
[2017-02-21] MEDS: NAPROXEN 250 MG TAB PO SCH ×2 (09:11→21:05)
[2017-02-21] MEDS: amLODIPine 5 MG TAB PO SCH ×2 (09:11→21:06)
[2017-02-21] MEDS: BRIMONIDINE 0.15% OPHTH SOLN 5 ML OU SCH ×2 (09:12→21:08)
[2017-02-21] MEDS ORDERED: LEVEMIR (INSULIN DETEMIR) 1 UNITS/0.01ML SC ONE (09:45)
[2017-02-21] MEDS ORDERED: ISOVUE-370 76% 100ML VIAL (Q9967) As Ordered ONE (09:50)
--- NOTE | 2017-02-21 11:40 | IPNPDOC ---
Text Note Date of Service The patient was seen on 02/21/17. NOTE Subjective: Pt states swelling of left eye is improving, however still has tenderness. No eye drainage. No CP/SOB/palpitations. Objective: Vitals: (see below) General: No acute distress, laying comfortably in bed. HEENT: Moist mucous membranes. Laceration on the lateral region of her orbital region.Swelling improved. No erythema. No induration. No pain with movement of eyes. No warmth/induration. Neck: No JVD or lymphadenopathy Cardiac: RRR, No murmurs Pulm: Clear to auscultation b/l. No wheezing, rhonchi Abd: NT/ND + BS Ext: 1+ pitting edema BLE. No cyanosis Strength 5/5 RUE/RLE. 3/5 L side after cva and BLE. CN 2-12 intact. F to N intact Negative pronator drift. Negative Babinki. AAO x3 Labs (see below) Images: CT head 02/16/17 Impression: No acute hemorrhage or infarct. Two focal stable chronic lacunar infarcts in the right basal ganglia described. Findings are consistent with age-related atrophy and chronic small vessel ischemic disease. CT Cervical spine 02/16/17 Impression: No acute fracture or traumatic injury. Severe degenerative disc disease at C5/C6, C6/C7, and C7/T1. CT Maxillofacial 02/16/17 Impression: 1. No acute osseous abnormality. 2. Focal superficial soft tissue swelling in the left frontal region, with a soft tissue nodule lateral to the left orbit as described. Dacryoadenitis and cellulitis cannot be excluded. Clinical correlation is recommended. CT Lumbar spine 02/19/17 IMPRESSION: 1. Diffuse disc bulges at the L1-2 through L3-4 levels with minimal thecal sac compression. 2. Mild central canal stenosis at the L4-5 level secondary to disc bulge ligamentous and facet hypertrophy and grade 1 spondylolisthesis. There is compression of the L4 nerves in the neural foramina. 3. Diffuse disc bulge at the L5-S1 level with minimal thecal sac compression. There is grade I spondylolisthesis of L5 on S1. There is compression of the L5 nerves in the neural foramina. Assessment/Plan 1. Recurrent seizures- likely secondary to noncompliance. Patient's Depakote level is subtherapeutic. Discussed with Dr. Nguyen with recommendations to increase the p.m. dose to 500, maintain a.m. dose to 250. CT head (see above). 2. Laceration of the left periorbital region with subsequent swelling/cellulitis - patient has been started on vancomycin and Levaquin--> change to doxy. Swelling improving. Naprosyn for pain. Repeat CT maxillofacial as area of swelling is not subsiding. Afebrile. No leukocytosis. 3. History of congestive heart failure compensated. Continue home diuretics 4. History of CAD stable continue home meds 5. Insulin-dependent diabetes mellitus continue Levemir/sliding scale insulin 6. Hypertension continue home meds 7. Chronic lower back pain x 3m -no alarming symptoms. CT Lumbar spine (see above). conservative measures. 8. H/o cva with left sided weakness. Stable. No new neuro def. 9. Chronic anemia - Anemia panel. Likely dilutional. Baseline Hb 8.3. FOBT. No bleeding noted. 10. LE edema - U/s negative for dvt. DVT prophy: SCDs Pending placement vs home care/PT. VS,Fishbone, I+O VS, Fishbone, I+O Laboratory Tests 02/21/17 05:55 Red Blood Count 2.62 L, Mean Corpuscular Volume 92.4, Mean Corpuscular Hemoglobin 29.8, Mean Corpuscular Hemoglobin Concent 32.2, Red Cell Distribution Width 13.2, Neutrophils (%) (Auto) 58.5, Lymphocytes (%) (Auto) 19.9 L, Monocytes (%) (Auto) 13.7 H, Eosinophils (%) (Auto) 7.2 H, Basophils (% ) (Auto) 0.2, Neutrophils # (Auto) 3.5, Lymphocytes # (Auto) 1.2 L, Monocytes # (Auto) 0.8, Eosinophils # (Auto) 0.4, Basophils # (Auto) 0.0, Calcium Level 8.4 L Vital Signs Date Time Temp Pulse Resp B/P (MAP) Pulse Ox O2 Delivery O2 Flow Rate FiO2 02/21/17 09:08 181/77 02/21/17 06:00 97.6 77 20 98 Room Air I&O- Last 24 Hours up to 6 AM 02/22/17 06:00 Intake Total 820 ml Output Total 400 ml Balance 420 ml ABED,TIFFANI MD Feb 21, 2017 11:40
[2017-02-21] MEDS: ASPIRIN 325 MG TAB PO SCH (12:27)
[2017-02-21] MEDS: predniSONE 2.5 MG TAB PO SCH (12:27)
[2017-02-21] MEDS: PRENATAL VITAMINS CHEWABLE TABLET PO SCH (12:27)
[2017-02-21 14:00] VITALS: BP 147/65
[2017-02-21] MEDS: ROSUVASTATIN 10 MG TAB (CRESTOR) PO SCH (21:06)
[2017-02-21] MEDS: DIVALPROEX 500 MG TAB PO SCH (21:06)
[2017-02-21 22:00] VITALS: BP 143/66
[2017-02-22 06:00] VITALS: BP 141/65
[2017-02-22] MEDS: HumaLOG INSULIN (NovoLOG) PER UNIT SC SCH ×4 (06:22→21:02)
--- NOTE | 2017-02-22 06:45 | REP ---
CT MAXILLOFACIAL BONES: CT maxillofacial bones performed. Axial images are obtained with coronal and sagittal reconstruction images. Comparison made with prior study of 02/16/2017. There is no evidence of acute fracture of the visualized osseous structures. Paranasal sinuses are well aerated and clear with no abnormal wall opacification. There is no orbital floor fracture. There is focal soft tissue density in the left periorbital region, just anterolateral to the lateral rim of the orbit. This area of oval soft tissue density measures approximately 1.8 x 1.5 x 1.0 cm and is most consistent with a focal hematoma. This has slightly increased in size since the prior exam. The globes are intact. No abnormal density is seen in either orbit. There are vascular calcifications in the carotid siphons. IMPRESSION: At the site of the reported palpable abnormality just lateral to the lateral aspect of the orbital wall is a focal oval soft tissue density consistent with a subcutaneous hematoma. This has mildly increased in size since prior study. There is no underlying osseous fracture. There is no underlying lacrimal gland abnormality. Signed by Bello Alas MD 02/22/2017 05:26 P
[2017-02-22] MEDS: SYMBICORT 160/4.5MCG INHALER 6GM INH SCH ×2 (07:37→20:24)
[2017-02-22] MEDS: PHENYTOIN ER 100 MG CAP PO SCH ×2 (09:00→21:28)
[2017-02-22] MEDS: PANTOPRAZOLE 40MG TAB (PROTONIX) PO SCH (09:00)
[2017-02-22] MEDS: LOSARTAN 50 MG TAB PO SCH ×2 (09:02→22:20)
[2017-02-22] MEDS: **hydrALAZINE** 50 MG TAB PO SCH ×3 (09:02→22:21)
[2017-02-22] MEDS: oxyBUTYnin *DITROPAN XL* 5 MG TABCR PO SCH (09:04)
[2017-02-22] MEDS: FERROUS SULFATE 325MG TAB PO SCH ×2 (09:04→21:29)
[2017-02-22] MEDS: amLODIPine 5 MG TAB PO SCH ×2 (09:04→22:21)
[2017-02-22] MEDS: METOPROLOL TARTRATE 100 MG TAB PO SCH ×2 (09:05→22:21)
[2017-02-22] MEDS: DOXYCYCLINE HYCLATE 100 MG TAB PO SCH ×2 (09:05→21:29)
[2017-02-22] MEDS: metFORMIN (GLUCOPHAGE) 1000 MG TABLET PO SCH ×2 (09:06→16:57)
[2017-02-22] MEDS: SODIUM CHLORIDE 0.9% INJ 10 ML SYR IV SCH (09:08)
[2017-02-22] MEDS: BRIMONIDINE 0.15% OPHTH SOLN 5 ML OU SCH ×2 (09:08→21:30)
[2017-02-22] MEDS: LEVEMIR (INSULIN DETEMIR) 1 UNITS/0.01ML SC SCH ×2 (09:08→21:02)
[2017-02-22] MEDS: DIVALPROEX 250 MG TAB PO SCH (09:20)
[2017-02-22] MEDS: TROSPIUM 20 MG TAB PO SCH ×2 (09:20→21:28)
[2017-02-22] MEDS: ANEXSIA, NORCO 7.5MG/325MG TABLET(HYDROCODONE/APAP) PO PRN ×2 (09:21→17:12)
--- NOTE | 2017-02-22 10:55 | IPNPDOC ---
Text Note Date of Service The patient was seen on 02/22/17. NOTE Subjective: No acute changes overnight. No eye pain/ drainage. No CP/SOB/ palpitations. Objective: Vitals: (see below) General: No acute distress, laying comfortably in bed. HEENT: Moist mucous membranes. Laceration on the lateral region of her orbital region.Swelling improved. No erythema/warmth. No induration. No pain with movement of eyes. No warmth/induration. Neck: No JVD or lymphadenopathy Cardiac: RRR, No murmurs Pulm: Clear to auscultation b/l. No wheezing, rhonchi Abd: NT/ND + BS Ext: 1+ pitting edema BLE. No cyanosis Strength 5/5 RUE/RLE. 3/5 L side after cva and BLE. CN 2-12 intact. F to N intact Negative pronator drift. Negative Babinki. AAO x3 Labs (see below) Images: CT head 02/16/17 Impression: No acute hemorrhage or infarct. Two focal stable chronic lacunar infarcts in the right basal ganglia described. Findings are consistent with age-related atrophy and chronic small vessel ischemic disease. CT Cervical spine 02/16/17 Impression: No acute fracture or traumatic injury. Severe degenerative disc disease at C5/C6, C6/C7, and C7/T1. CT Maxillofacial 02/16/17 Impression: 1. No acute osseous abnormality. 2. Focal superficial soft tissue swelling in the left frontal region, with a soft tissue nodule lateral to the left orbit as described. Dacryoadenitis and cellulitis cannot be excluded. Clinical correlation is recommended. CT Lumbar spine 02/19/17 IMPRESSION: 1. Diffuse disc bulges at the L1-2 through L3-4 levels with minimal thecal sac compression. 2. Mild central canal stenosis at the L4-5 level secondary to disc bulge ligamentous and facet hypertrophy and grade 1 spondylolisthesis. There is compression of the L4 nerves in the neural foramina. 3. Diffuse disc bulge at the L5-S1 level with minimal thecal sac compression. There is grade I spondylolisthesis of L5 on S1. There is compression of the L5 nerves in the neural foramina. CT Maxillofacial 02/22/17 IMPRESSION: At the site of the reported palpable abnormality just lateral to the lateral aspect of the orbital wall is a focal oval soft tissue density consistent with a subcutaneous hematoma. This has mildly increased in size since prior study. There is no underlying osseous fracture. There is no underlying lacrimal gland abnormality. Assessment/Plan 1. Recurrent seizures- likely secondary to noncompliance. Patient's Depakote level is subtherapeutic. Discussed with Dr. Nguyen with recommendations to increase the p.m. dose to 500, maintain a.m. dose to 250. CT head (see above). 2. Laceration of the left periorbital region with subsequent cellulitis improved. Has residual hematoma- Cont doxy. Swelling improving. D/c Naprosyn. swelling is not subsiding. Afebrile. No leukocytosis. 3. History of congestive heart failure compensated. Continue home diuretics 4. History of CAD stable continue home meds 5. Insulin-dependent diabetes mellitus continue Levemir/sliding scale insulin 6. Hypertension continue home meds 7. Chronic lower back pain x 3m -no alarming symptoms. CT Lumbar spine (see above). conservative measures. 8. H/o cva with left sided weakness. Stable. No new neuro def. 9. Chronic anemia - Anemia panel. Likely dilutional. Baseline Hb 8.3. FOBT. No bleeding noted. 10. LE edema - U/s negative for dvt. DVT prophy: SCDs Pending placement vs home care/PT. Plavix held temporarily given lateral orbital hematoma. Consider restarting once this improves. VS,Fishbone, I+O VS, Fishbone, I+O Vital Signs Date Time Temp Pulse Resp B/P (MAP) Pulse Ox O2 Delivery O2 Flow Rate FiO2 02/22/17 09:21 18 02/22/17 09:05 83 138/70 02/22/17 06:00 97.3 97 Room Air I&O- Last 24 Hours up to 6 AM 02/23/17 06:00 Intake Total 720 ml Output Total 300 ml Balance 420 ml TIFFANI MORENO MD Feb 22, 2017 10:54
[2017-02-22 12:32] LABS: BASO % 0.4 % (0.0-1.0); EOS # 0.4 10^3/uL (0.0-0.50); EOS % 5.4 % (0.0-3.0); IMMATURE GRANULOCYTE % 0.4 % (0-0); LYMPH # 1.3 10^3/uL (1.5-4.5); LYMPH % 16.3 % (24.0-44.0); MEAN CORPUSCULAR HEMOGLOBIN 29.5 pg (27.0-33.0); MEAN CORPUSCULAR VOLUME 92.4 fl (80.0-96.0); MONO # 0.9 10^3/uL (0.0-0.8); MONO % 11.5 % (0.0-5.0); NEUTROPHILS # 5.1 10^3/uL (1.8-7.7); PLATELET COUNT, AUTOMATED 357 10^3/uL (150-450); RED CELL DISTRIBUTION WIDTH 13.2 % (11.5-14.5); WHITE BLOOD COUNT 7.8 10^3/uL (4.0-10.0)
[2017-02-22 12:56] LABS: ANION GAP 8 MEQ/L (8-16); BLOOD UREA NITROGEN 38 MG/DL (7-18); CALCIUM LEVEL 8.3 MG/DL (8.8-10.2); CARBON DIOXIDE LEVEL 27 MEQ/L (21-32); CHLORIDE LEVEL 106 MEQ/L (98-107); CREATININE FOR GFR 0.61 MG/DL (0.55-1.02); GLOMERULAR FILTRATION RATE > 60.0 (>45); GLUCOSE, FASTING 80 MG/DL (80-110); POTASSIUM SERUM 4.1 MEQ/L (3.5-5.1); SODIUM LEVEL 141 MEQ/L (136-145)
[2017-02-22] MEDS: ASPIRIN 325 MG TAB PO SCH (13:00)
[2017-02-22] MEDS: predniSONE 2.5 MG TAB PO SCH (13:00)
[2017-02-22] MEDS: PRENATAL VITAMINS CHEWABLE TABLET PO SCH (13:00)
[2017-02-22 14:00] VITALS: BP 135/59
[2017-02-22 17:17] VITALS: BP 159/74
[2017-02-22] MEDS ORDERED: LEVEMIR (INSULIN DETEMIR) 1 UNITS/0.01ML SC ONE (21:00)
[2017-02-22] MEDS: DIVALPROEX 500 MG TAB PO SCH (21:29)
[2017-02-22] MEDS: ROSUVASTATIN 10 MG TAB (CRESTOR) PO SCH (21:29)
[2017-02-22] MEDS: ACETAMINOPHEN TAB 650MG DOSE (2X325MG) PO PRN (21:30)
[2017-02-22 22:00] VITALS: BP 123/60
[2017-02-23] MEDS: ANEXSIA, NORCO 7.5MG/325MG TABLET(HYDROCODONE/APAP) PO PRN ×2 (00:06→20:49)
[2017-02-23] MEDS: ACETAMINOPHEN TAB 650MG DOSE (2X325MG) PO PRN (04:01)
[2017-02-23 05:45] LABS: BASO % 0.4 % (0.0-1.0); EOS # 0.4 10^3/uL (0.0-0.50); EOS % 6.3 % (0.0-3.0); IMMATURE GRANULOCYTE % 0.4 % (0-0); LYMPH # 1.5 10^3/uL (1.5-4.5); LYMPH % 26.8 % (24.0-44.0); MEAN CORPUSCULAR HEMOGLOBIN 29.9 pg (27.0-33.0); MEAN CORPUSCULAR HGB CONC 32.2 g/dl (32.0-36.5); MONO # 0.7 10^3/uL (0.0-0.8); MONO % 12.1 % (0.0-5.0); NEUTROPHILS # 3.1 10^3/uL (1.8-7.7); PLATELET COUNT, AUTOMATED 309 10^3/uL (150-450); RED CELL DISTRIBUTION WIDTH 13.4 % (11.5-14.5); WHITE BLOOD COUNT 5.7 10^3/uL (4.0-10.0)
[2017-02-23 06:00] VITALS: BP 147/65
[2017-02-23 07:00] LABS: ANION GAP 9 MEQ/L (8-16); BLOOD UREA NITROGEN 36 MG/DL (7-18); CALCIUM LEVEL 8.1 MG/DL (8.8-10.2); CARBON DIOXIDE LEVEL 26 MEQ/L (21-32); CHLORIDE LEVEL 108 MEQ/L (98-107); CREATININE FOR GFR 0.63 MG/DL (0.55-1.02); GLOMERULAR FILTRATION RATE > 60.0 (>45); GLUCOSE, FASTING 100 MG/DL (80-110); POTASSIUM SERUM 4.3 MEQ/L (3.5-5.1); SODIUM LEVEL 143 MEQ/L (136-145)
[2017-02-23] MEDS: HumaLOG INSULIN (NovoLOG) PER UNIT SC SCH ×4 (07:30→20:29)
[2017-02-23] MEDS: SYMBICORT 160/4.5MCG INHALER 6GM INH SCH ×2 (08:48→20:58)
[2017-02-23] MEDS: PANTOPRAZOLE 40MG TAB (PROTONIX) PO SCH (08:50)
[2017-02-23] MEDS: TROSPIUM 20 MG TAB PO SCH ×2 (08:50→20:27)
[2017-02-23] MEDS: PHENYTOIN ER 100 MG CAP PO SCH ×2 (08:52→20:27)
[2017-02-23] MEDS: **hydrALAZINE** 50 MG TAB PO SCH ×3 (08:53→20:27)
[2017-02-23] MEDS: METOPROLOL TARTRATE 100 MG TAB PO SCH ×2 (08:53→20:28)
[2017-02-23] MEDS: metFORMIN (GLUCOPHAGE) 1000 MG TABLET PO SCH ×2 (08:54→17:07)
[2017-02-23] MEDS: FERROUS SULFATE 325MG TAB PO SCH ×2 (08:54→20:28)
[2017-02-23] MEDS: oxyBUTYnin *DITROPAN XL* 5 MG TABCR PO SCH (08:56)
[2017-02-23] MEDS: LOSARTAN 50 MG TAB PO SCH ×2 (08:56→20:30)
[2017-02-23] MEDS: DOXYCYCLINE HYCLATE 100 MG TAB PO SCH ×2 (08:56→20:29)
[2017-02-23] MEDS: BRIMONIDINE 0.15% OPHTH SOLN 5 ML OU SCH ×2 (08:57→20:30)
[2017-02-23] MEDS: SODIUM CHLORIDE 0.9% INJ 10 ML SYR IV SCH (08:57)
[2017-02-23] MEDS: amLODIPine 5 MG TAB PO SCH ×2 (08:57→20:29)
[2017-02-23] MEDS: DIVALPROEX 250 MG TAB PO SCH (09:10)
[2017-02-23] MEDS: LEVEMIR (INSULIN DETEMIR) 1 UNITS/0.01ML SC SCH ×2 (09:58→20:29)
[2017-02-23] MEDS: ASPIRIN 325 MG TAB PO SCH (12:16)
[2017-02-23] MEDS: predniSONE 2.5 MG TAB PO SCH (12:16)
[2017-02-23] MEDS: PRENATAL VITAMINS CHEWABLE TABLET PO SCH (12:16)
--- NOTE | 2017-02-23 13:42 | IPNPDOC ---
Text Note Date of Service The patient was seen on 02/23/17. NOTE Subjective: No acute changes overnight. No eye pain/ drainage. No CP/SOB/ palpitations. Objective: Vitals: (see below) General: No acute distress, laying comfortably in bed. HEENT: Moist mucous membranes. Laceration on the lateral region of her orbital region.Swelling improved. No erythema/warmth. No induration. No pain with movement of eyes. No warmth/induration. Neck: No JVD or lymphadenopathy Cardiac: RRR, No murmurs Pulm: Clear to auscultation b/l. No wheezing, rhonchi Abd: NT/ND + BS Ext: 1+ pitting edema BLE. No cyanosis Strength 5/5 RUE/RLE. 3/5 L side after cva and BLE. CN 2-12 intact. F to N intact Negative pronator drift. Negative Babinki. AAO x3 Labs (see below) Images: CT head 02/16/17 Impression: No acute hemorrhage or infarct. Two focal stable chronic lacunar infarcts in the right basal ganglia described. Findings are consistent with age-related atrophy and chronic small vessel ischemic disease. CT Cervical spine 02/16/17 Impression: No acute fracture or traumatic injury. Severe degenerative disc disease at C5/C6, C6/C7, and C7/T1. CT Maxillofacial 02/16/17 Impression: 1. No acute osseous abnormality. 2. Focal superficial soft tissue swelling in the left frontal region, with a soft tissue nodule lateral to the left orbit as described. Dacryoadenitis and cellulitis cannot be excluded. Clinical correlation is recommended. CT Lumbar spine 02/19/17 IMPRESSION: 1. Diffuse disc bulges at the L1-2 through L3-4 levels with minimal thecal sac compression. 2. Mild central canal stenosis at the L4-5 level secondary to disc bulge ligamentous and facet hypertrophy and grade 1 spondylolisthesis. There is compression of the L4 nerves in the neural foramina. 3. Diffuse disc bulge at the L5-S1 level with minimal thecal sac compression. There is grade I spondylolisthesis of L5 on S1. There is compression of the L5 nerves in the neural foramina. CT Maxillofacial 02/22/17 IMPRESSION: At the site of the reported palpable abnormality just lateral to the lateral aspect of the orbital wall is a focal oval soft tissue density consistent with a subcutaneous hematoma. This has mildly increased in size since prior study. There is no underlying osseous fracture. There is no underlying lacrimal gland abnormality. Assessment/Plan 1. Recurrent seizures- likely secondary to noncompliance. Patient's Depakote level is subtherapeutic. Discussed with Dr. Nguyen with recommendations to increase the p.m. dose to 500, maintain a.m. dose to 250. CT head (see above). 2. Laceration of the left periorbital region with subsequent cellulitis improved. Has residual hematoma- Cont doxy. Swelling improving. D/c Naprosyn. swelling is not subsiding. Afebrile. No leukocytosis. 3. History of congestive heart failure compensated. Continue home diuretics 4. History of CAD stable continue home meds 5. Insulin-dependent diabetes mellitus continue Levemir/sliding scale insulin 6. Hypertension continue home meds 7. Chronic lower back pain x 3m -no alarming symptoms. CT Lumbar spine (see above). conservative measures. 8. H/o cva with left sided weakness. Stable. No new neuro def. 9. Chronic anemia - Anemia panel. Baseline Hb 7.3. FOBT negative. No bleeding noted. Patient refused transfusion at this time. 10. LE edema - U/s negative for dvt. DVT prophy: SCDs Pending placement vs home care/PT. Plavix held temporarily given lateral orbital hematoma. Consider restarting once this improves. VS,Fishbone, I+O VS, Fishbone, I+O Laboratory Tests 02/23/17 05:33 Red Blood Count 2.44 L, Mean Corpuscular Volume 93.0, Mean Corpuscular Hemoglobin 29.9, Mean Corpuscular Hemoglobin Concent 32.2, Red Cell Distribution Width 13.4, Neutrophils (%) (Auto) 54.0, Lymphocytes (%) (Auto) 26.8, Monocytes (%) (Auto) 12.1 H, Eosinophils (%) (Auto) 6.3 H, Basophils (%) ( Auto) 0.4, Neutrophils # (Auto) 3.1, Lymphocytes # (Auto) 1.5, Monocytes # (Auto ) 0.7, Eosinophils # (Auto) 0.4, Basophils # (Auto) 0.0, Calcium Level 8.1 L Vital Signs Date Time Temp Pulse Resp B/P (MAP) Pulse Ox O2 Delivery O2 Flow Rate FiO2 02/23/17 08:57 74 147/65 02/23/17 06:00 97.9 18 95 Room Air I&O- Last 24 Hours up to 6 AM 02/24/17 06:00 Intake Total 240 ml Output Total 200 ml Balance 40 ml TIFFANI MORENO MD Feb 23, 2017 13:42
[2017-02-23 14:00] VITALS: BP 158/76
[2017-02-23 14:27] LABS: FOLATE 18.4 NG/ML (>5.4)
[2017-02-23] MEDS: ROSUVASTATIN 10 MG TAB (CRESTOR) PO SCH (20:27)
[2017-02-23] MEDS: DIVALPROEX 500 MG TAB PO SCH (20:28)
[2017-02-23] MEDS: LIDOCAINE 5% OINT 30 GM TOP PRN (20:30)
[2017-02-23 22:00] VITALS: BP 150/62
[2017-02-24] MEDS: ACETAMINOPHEN TAB 650MG DOSE (2X325MG) PO PRN ×2 (03:53→09:04)
[2017-02-24] MEDS: ANEXSIA, NORCO 7.5MG/325MG TABLET(HYDROCODONE/APAP) PO PRN ×2 (05:08→15:17)
[2017-02-24 06:00] VITALS: BP 139/64
[2017-02-24] MEDS: HumaLOG INSULIN (NovoLOG) PER UNIT SC SCH ×4 (07:28→21:00)
[2017-02-24] MEDS: SYMBICORT 160/4.5MCG INHALER 6GM INH SCH ×2 (07:56→22:38)
[2017-02-24] MEDS: LEVEMIR (INSULIN DETEMIR) 1 UNITS/0.01ML SC SCH ×2 (09:04→21:28)
[2017-02-24] MEDS: DOXYCYCLINE HYCLATE 100 MG TAB PO SCH ×2 (09:06→21:28)
[2017-02-24] MEDS: **hydrALAZINE** 50 MG TAB PO SCH ×3 (09:06→21:25)
[2017-02-24] MEDS: oxyBUTYnin *DITROPAN XL* 5 MG TABCR PO SCH (09:06)
[2017-02-24] MEDS: DIVALPROEX 250 MG TAB PO SCH (09:07)
[2017-02-24] MEDS: metFORMIN (GLUCOPHAGE) 1000 MG TABLET PO SCH ×2 (09:07→17:27)
[2017-02-24] MEDS: METOPROLOL TARTRATE 100 MG TAB PO SCH ×2 (09:07→21:27)
[2017-02-24] MEDS: TROSPIUM 20 MG TAB PO SCH ×2 (09:07→21:26)
[2017-02-24] MEDS: PHENYTOIN ER 100 MG CAP PO SCH ×2 (09:08→21:26)
[2017-02-24] MEDS: PANTOPRAZOLE 40MG TAB (PROTONIX) PO SCH (09:08)
[2017-02-24] MEDS: FERROUS SULFATE 325MG TAB PO SCH ×2 (09:08→21:27)
[2017-02-24] MEDS: amLODIPine 5 MG TAB PO SCH ×2 (09:08→21:26)
[2017-02-24] MEDS: LOSARTAN 50 MG TAB PO SCH ×2 (09:09→21:28)
[2017-02-24] MEDS: BRIMONIDINE 0.15% OPHTH SOLN 5 ML OU SCH ×2 (09:10→21:29)
[2017-02-24] MEDS: SODIUM CHLORIDE 0.9% INJ 10 ML SYR IV SCH (09:18)
[2017-02-24 10:08] LABS: BASO % 0.5 % (0.0-1.0); EOS # 0.4 10^3/uL (0.0-0.50); EOS % 5.7 % (0.0-3.0); IMMATURE GRANULOCYTE % 0.6 % (0-0); LYMPH # 1.5 10^3/uL (1.5-4.5); LYMPH % 23.9 % (24.0-44.0); MEAN CORPUSCULAR HEMOGLOBIN 29.9 pg (27.0-33.0); MEAN CORPUSCULAR HGB CONC 32.1 g/dl (32.0-36.5); MEAN CORPUSCULAR VOLUME 93.1 fl (80.0-96.0); MONO # 0.8 10^3/uL (0.0-0.8); MONO % 12.9 % (0.0-5.0); NEUTROPHILS # 3.5 10^3/uL (1.8-7.7); NEUTROPHILS % 56.4 % (36.0-66.0); PLATELET COUNT, AUTOMATED 342 10^3/uL (150-450); RED CELL DISTRIBUTION WIDTH 13.4 % (11.5-14.5); WHITE BLOOD COUNT 6.2 10^3/uL (4.0-10.0)
[2017-02-24 10:35] LABS: ALKALINE PHOSPHATASE 80 U/L (45-117); ALT/SGPT 15 U/L (12-78); ANION GAP 10 MEQ/L (8-16); AST/SGOT 9 U/L (7-37); BILIRUBIN,DIRECT < 0.1 MG/DL (0.0-0.2); BILIRUBIN,TOTAL 0.1 MG/DL (0.2-1.0); BLOOD UREA NITROGEN 28 MG/DL (7-18); CALCIUM LEVEL 8.2 MG/DL (8.8-10.2); CARBON DIOXIDE LEVEL 26 MEQ/L (21-32); CHLORIDE LEVEL 107 MEQ/L (98-107); CREATININE FOR GFR 0.56 MG/DL (0.55-1.02); GLOMERULAR FILTRATION RATE > 60.0 (>45); GLUCOSE, FASTING 149 MG/DL (80-110); MAGNESIUM LEVEL 1.9 MG/DL (1.8-2.4); POTASSIUM SERUM 4.2 MEQ/L (3.5-5.1); SODIUM LEVEL 143 MEQ/L (136-145)
[2017-02-24] MEDS ORDERED: IRON SUCROSE 200 MG in NS 100 ML IV ONE (12:00)
[2017-02-24] MEDS: PRENATAL VITAMINS CHEWABLE TABLET PO SCH (12:33)
[2017-02-24] MEDS: ASPIRIN 325 MG TAB PO SCH (12:33)
[2017-02-24] MEDS: predniSONE 2.5 MG TAB PO SCH (12:33)
--- NOTE | 2017-02-24 13:56 | IPN ---
DATE OF SERVICE: 02/24/2017 Ms. Cooney is feeling odd this morning. She says she feels unwell. She is not sure how she feels specifically unwell. She has had some tremoring and is concerned that people do not believe her when she says she cannot control it. She is actively thinking about pursuing alternative medicine. Temperature is 97.2, pulse 77, respiratory rate 19, blood pressure 139/64, 98% on room air. Intake and output (I and O) notable for positive fluid balance of 1349, two bowel movements yesterday, one thus far today. Is awake, appropriately interactive, pleasantly conversant. Remembers me from previous encounters. Neck is supple, thick. Breathing is symmetrical, rested. I-E ratio is 1:3. No wheezes, rales, or rhonchi. Heart is distant sounding. Normal S1, S2. Abdomen soft, doughy, nontender. White cell count 6.2, hemoglobin 7.8 increased from 7.3, and platelets of 342. BUN 28, creatinine 0.56. My assessment is as follows: This is a 66-year-old with recurrent seizures. The plan is as follows: 1. Neurologic. The patient has been treated for seizures. The case was discussed with neurology, by my colleague. 2. The patient has laceration of left periorbital region with cellulitis, which is improved. Has a hematoma, which is still present. 3. The patient has a history of congestive heart failure, which is compensated. 4. The patient has anemia. Is below baseline at this point. Iron studies suggest that she is at low levels of iron, although not technically abnormal, and she is not interested in blood transfusions. At this point, we are going to give an iron infusion. 5. The patient has a history of chronic low back pain with disc bulges and central canal stenosis. Is not complaining of back pain today. 6. The patient has a history of coronary artery disease. 7. The patient has insulin-dependent diabetes. On long-acting sliding scale. 8. The patient has mechanical deep venous thrombosis (DVT) prophylaxis. 9. Plavix has been held due to the orbital hematoma. Can consider restarting this in the future.
[2017-02-24 14:00] VITALS: BP 120/58
[2017-02-24] MEDS: ROSUVASTATIN 10 MG TAB (CRESTOR) PO SCH (21:27)
[2017-02-24] MEDS: DIVALPROEX 500 MG TAB PO SCH (21:27)
[2017-02-24] MEDS: LIDOCAINE 5% OINT 30 GM TOP PRN (21:30)
[2017-02-24 22:00] VITALS: BP 144/58
[2017-02-25] MEDS: ACETAMINOPHEN TAB 650MG DOSE (2X325MG) PO PRN (02:36)
[2017-02-25 05:29] LABS: MEAN CORPUSCULAR HEMOGLOBIN 29.7 pg (27.0-33.0); MEAN CORPUSCULAR HGB CONC 31.7 g/dl (32.0-36.5); MEAN CORPUSCULAR VOLUME 93.8 fl (80.0-96.0); PLATELET COUNT, AUTOMATED 332 10^3/uL (150-450); RED CELL DISTRIBUTION WIDTH 13.6 % (11.5-14.5); WHITE BLOOD COUNT 8.6 10^3/uL (4.0-10.0)
[2017-02-25 05:48] LABS: ANION GAP 7 MEQ/L (8-16); BLOOD UREA NITROGEN 24 MG/DL (7-18); CALCIUM LEVEL 8.2 MG/DL (8.8-10.2); CARBON DIOXIDE LEVEL 27 MEQ/L (21-32); CHLORIDE LEVEL 109 MEQ/L (98-107); CREATININE FOR GFR 0.52 MG/DL (0.55-1.02); GLOMERULAR FILTRATION RATE > 60.0 (>45); GLUCOSE, FASTING 97 MG/DL (80-110); POTASSIUM SERUM 4.5 MEQ/L (3.5-5.1); SODIUM LEVEL 143 MEQ/L (136-145)
[2017-02-25 06:00] VITALS: BP 139/63
[2017-02-25] MEDS: ANEXSIA, NORCO 7.5MG/325MG TABLET(HYDROCODONE/APAP) PO PRN ×3 (06:17→21:57)
[2017-02-25] MEDS: HumaLOG INSULIN (NovoLOG) PER UNIT SC SCH ×4 (07:30→20:46)
[2017-02-25] MEDS: SYMBICORT 160/4.5MCG INHALER 6GM INH SCH ×2 (07:45→20:19)
--- NOTE | 2017-02-25 08:53 | REP ---
Clinical: Pain. Recent [id number] placement. Comparison: 08/18/2016. Findings: A right-sided [id number] is identified with tip in the right internal jugular vein terminating at the level of the clavicle. Cardiomegaly remains stable. Perihilar opacities and increased interstitial markings are appreciated which may reflect elements of interstitial edema as well as mediastinal and hilar adenopathy. No pneumothorax. No definite effusion. Impression: 1. [id number] via right IJ line with tip overlying the right clavicle. No obvious pneumothorax. 2. Findings suggest chronic changes with superimposed interstitial edema. Dense perihilar opacities cannot exclude adenopathy and/or consolidations. Signed by Guy Whitaker MD 02/25/2017 08:45 A
[2017-02-25] MEDS: SODIUM CHLORIDE 0.9% INJ 10 ML SYR IV SCH (09:00)
[2017-02-25] MEDS: LEVEMIR (INSULIN DETEMIR) 1 UNITS/0.01ML SC SCH ×2 (09:05→21:54)
[2017-02-25] MEDS: metFORMIN (GLUCOPHAGE) 1000 MG TABLET PO SCH (09:05)
[2017-02-25] MEDS: PANTOPRAZOLE 40MG TAB (PROTONIX) PO SCH (09:05)
[2017-02-25] MEDS: DOXYCYCLINE HYCLATE 100 MG TAB PO SCH ×2 (09:05→21:55)
[2017-02-25] MEDS: DIVALPROEX 250 MG TAB PO SCH (09:05)
[2017-02-25] MEDS: FERROUS SULFATE 325MG TAB PO SCH ×2 (09:06→21:56)
[2017-02-25] MEDS: TROSPIUM 20 MG TAB PO SCH ×2 (09:06→21:57)
[2017-02-25] MEDS: LOSARTAN 50 MG TAB PO SCH ×2 (09:08→21:55)
[2017-02-25] MEDS: **hydrALAZINE** 50 MG TAB PO SCH ×3 (09:09→21:55)
[2017-02-25] MEDS: METOPROLOL TARTRATE 100 MG TAB PO SCH ×2 (09:09→21:57)
[2017-02-25] MEDS: amLODIPine 5 MG TAB PO SCH ×2 (09:09→21:56)
[2017-02-25] MEDS: PHENYTOIN ER 100 MG CAP PO SCH ×2 (09:10→21:54)
[2017-02-25] MEDS: oxyBUTYnin *DITROPAN XL* 5 MG TABCR PO SCH (09:11)
[2017-02-25] MEDS: BRIMONIDINE 0.15% OPHTH SOLN 5 ML OU SCH ×2 (09:11→21:57)
[2017-02-25] MEDS: PRENATAL VITAMINS CHEWABLE TABLET PO SCH (12:05)
[2017-02-25] MEDS: ASPIRIN 325 MG TAB PO SCH (12:05)
[2017-02-25] MEDS: predniSONE 2.5 MG TAB PO SCH (12:05)
--- NOTE | 2017-02-25 13:46 | REP ---
Clinical: Chest pain. Comparison: 05/27/2015. Findings: Prominent pulmonary vasculature with perihilar and lower lobe ground-glass opacities in the setting of cardiomegaly. Differential diagnosis includes pulmonary vascular congestion and bronchitis. No pleural effusion. No pneumothorax. Tracheobronchial tree is patent. No adenopathy. No pericardial effusion. [id number] identified in the right chest wall extending to the SVC. Impression: Findings suggest pulmonary vascular congestion and/or bronchitis. Signed by Guy Whitaker MD 02/25/2017 01:37 P
[2017-02-25 14:00] VITALS: BP 125/61
--- NOTE | 2017-02-25 16:14 | IPN ---
DATE: 02/25/2017 Ms. Cooney had some chest pain overnight. She describes it as right sided and substernal pleuritic. It is reproducible. She thinks that it is related to her MediPort. Temperature is 97.4, pulse 73, respiratory rate 19, blood pressure 139/63, 100% on room air. Intake and output (I and O) notable for negative fluid balance of -810, two bowel movements yesterday. Is awake sitting up in the chair. Appears comfortable. Neck is thick. Extremities are moist. Breathing is symmetrical, rested. There is sternal and right sided chest tenderness. Heart is distant sounding. Normal S1, S2. Abdomen soft, doughy, nontender. There is trace to +1 bilateral lower extremity. White cell count 8.6, hemoglobin 76, BUN 24, creatinine 0.5, glucose 146. Chest x-ray is unremarkable. EKG done last night has yet to be read. My assessment is as follows: This is a 66-year-old with recurrent seizures. The plan is as follows: 1. Neurologic. The patient has been treated for seizures. The case was discussed with neurology. 2. The patient has laceration of left periorbital region with resolved cellulitis. There is a hematoma underneath that. Sutures are still in place. There is a lot of pressure underneath this area and so it will left in place yet another day as I am afraid for wound dehiscence. 3. The patient has a history of congestive heart failure, which is compensated. 4. The patient has anemia. Is below baseline. She has received iron transfusion. She is not interested in blood transfusions. Should she still have chest pain, shortness of breath, or should it drop much lower we will need to readdress this issue. 5. The patient has a history of chronic low back pain with disc bulges and central canal stenosis. Is not complaining of back pain today. 6. The patient has chest pain, cause of which remains unclear. It is reproducible and pleuritic. We will get a CT scan of the chest today as the chest x-ray was somewhat difficulty to Interpret. 7. The patient has insulin-dependent diabetes. Metformin has been held. 8. The patient has mechanical deep venous thrombosis (DVT) prophylaxis with SCD and TEDS. 9. Plavix has been held due to the orbital hematoma.
--- NOTE | 2017-02-25 21:27 | ECGEPIP ---
Stationary ECG Study [facility] Test Date: 2017-02-25 Pat Name: DEE DEE SCHULTZ Department: Room: [place] [address] Gender: F Glue Cook: FLAQUITO AYON : 1950 Requested By: VALENTINA DUFF Order Number: [id number] Reading MD: Jorge Lam Measurements Intervals [place] Rate: 68 P: 74 VA: 201 QRS: 41 QRSD: 94 T: -26 QT: 411 QTc: 438 Interpretive Statements Normal sinus rhythm Nonspecific ST-T wave abnormalities No significant change when compared to prior tracing of 02/17/2017 Electronically Signed On 02-25-2017 21:26:36 EST by Jorge Lam
[2017-02-25] MEDS: ROSUVASTATIN 10 MG TAB (CRESTOR) PO SCH (21:55)
[2017-02-25] MEDS: DIVALPROEX 500 MG TAB PO SCH (21:57)
[2017-02-25] MEDS: predniSONE 20 MG TAB PO SCH (21:57)
[2017-02-25] MEDS: LIDOCAINE 5% OINT 30 GM TOP PRN (21:58)
[2017-02-25 22:00] VITALS: BP 127/59
[2017-02-26] MEDS: ACETAMINOPHEN TAB 650MG DOSE (2X325MG) PO PRN ×2 (04:18→21:04)
[2017-02-26 04:47] LABS: MEAN CORPUSCULAR HEMOGLOBIN 29.6 pg (27.0-33.0); MEAN CORPUSCULAR HGB CONC 32.1 g/dl (32.0-36.5); MEAN CORPUSCULAR VOLUME 92.2 fl (80.0-96.0); PLATELET COUNT, AUTOMATED 291 10^3/uL (150-450); RED CELL DISTRIBUTION WIDTH 13.6 % (11.5-14.5); WHITE BLOOD COUNT 10.2 10^3/uL (4.0-10.0)
[2017-02-26 05:42] LABS: ANION GAP 5 MEQ/L (8-16); BLOOD UREA NITROGEN 18 MG/DL (7-18); CALCIUM LEVEL 8.3 MG/DL (8.8-10.2); CARBON DIOXIDE LEVEL 28 MEQ/L (21-32); CHLORIDE LEVEL 108 MEQ/L (98-107); CREATININE FOR GFR 0.52 MG/DL (0.55-1.02); GLOMERULAR FILTRATION RATE > 60.0 (>45); GLUCOSE, FASTING 114 MG/DL (80-110); MAGNESIUM LEVEL 1.7 MG/DL (1.8-2.4); POTASSIUM SERUM 4.7 MEQ/L (3.5-5.1); SODIUM LEVEL 141 MEQ/L (136-145)
[2017-02-26 06:00] VITALS: BP 138/62
[2017-02-26] MEDS: HumaLOG INSULIN (NovoLOG) PER UNIT SC SCH ×4 (07:16→20:46)
[2017-02-26] MEDS: LOSARTAN 50 MG TAB PO SCH ×2 (08:00→21:06)
[2017-02-26] MEDS: DIVALPROEX 250 MG TAB PO SCH (08:01)
[2017-02-26] MEDS: **hydrALAZINE** 50 MG TAB PO SCH ×3 (08:01→21:05)
[2017-02-26] MEDS: PHENYTOIN ER 100 MG CAP PO SCH ×2 (08:01→21:04)
[2017-02-26] MEDS: TROSPIUM 20 MG TAB PO SCH ×2 (08:02→21:10)
[2017-02-26] MEDS: METOPROLOL TARTRATE 100 MG TAB PO SCH ×2 (08:02→21:03)
[2017-02-26] MEDS: amLODIPine 5 MG TAB PO SCH ×2 (08:02→21:02)
[2017-02-26] MEDS: DOXYCYCLINE HYCLATE 100 MG TAB PO SCH ×2 (08:02→21:06)
[2017-02-26] MEDS: FERROUS SULFATE 325MG TAB PO SCH ×2 (08:02→21:06)
[2017-02-26] MEDS: PANTOPRAZOLE 40MG TAB (PROTONIX) PO SCH (08:02)
[2017-02-26] MEDS: oxyBUTYnin *DITROPAN XL* 5 MG TABCR PO SCH (08:04)
[2017-02-26] MEDS: BRIMONIDINE 0.15% OPHTH SOLN 5 ML OU SCH ×2 (08:04→21:06)
[2017-02-26] MEDS: SODIUM CHLORIDE 0.9% INJ 10 ML SYR IV SCH (08:05)
[2017-02-26] MEDS: LEVEMIR (INSULIN DETEMIR) 1 UNITS/0.01ML SC SCH ×2 (08:05→21:00)
[2017-02-26] MEDS: SYMBICORT 160/4.5MCG INHALER 6GM INH SCH ×2 (08:18→20:50)
[2017-02-26] MEDS: predniSONE 2.5 MG TAB PO SCH (11:11)
[2017-02-26] MEDS: MAG SULF 1GM/100ML (MAG RUN) 1 GM in APPROPRIATE DILUENT 1 EA IV SCH ×2 (11:11→15:50)
[2017-02-26] MEDS: ASPIRIN 325 MG TAB PO SCH (11:11)
[2017-02-26] MEDS: PRENATAL VITAMINS CHEWABLE TABLET PO SCH (11:11)
[2017-02-26] MEDS: FUROSEMIDE 20 MG/2 ML VIAL (J1940) IV SCH ×2 (11:29→15:51)
[2017-02-26 14:00] VITALS: BP 154/67
[2017-02-26] MEDS: ANEXSIA, NORCO 7.5MG/325MG TABLET(HYDROCODONE/APAP) PO PRN (18:22)
[2017-02-26] MEDS: DIVALPROEX 500 MG TAB PO SCH (21:01)
[2017-02-26] MEDS: ROSUVASTATIN 10 MG TAB (CRESTOR) PO SCH (21:02)
[2017-02-26] MEDS: predniSONE 20 MG TAB PO SCH (21:05)
[2017-02-26 22:00] VITALS: BP 151/71
[2017-02-27 05:49] LABS: MEAN CORPUSCULAR HGB CONC 33.7 g/dl (32.0-36.5); MEAN CORPUSCULAR VOLUME 88.8 fl (80.0-96.0); PLATELET COUNT, AUTOMATED 274 10^3/uL (150-450); RED CELL DISTRIBUTION WIDTH 14.3 % (11.5-14.5); WHITE BLOOD COUNT 11.5 10^3/uL (4.0-10.0)
[2017-02-27 06:00] VITALS: BP 142/67
[2017-02-27 06:33] LABS: ANION GAP 8 MEQ/L (8-16); BLOOD UREA NITROGEN 18 MG/DL (7-18); CALCIUM LEVEL 8.4 MG/DL (8.8-10.2); CARBON DIOXIDE LEVEL 27 MEQ/L (21-32); CHLORIDE LEVEL 107 MEQ/L (98-107); CREATININE FOR GFR 0.54 MG/DL (0.55-1.02); GLOMERULAR FILTRATION RATE > 60.0 (>45); GLUCOSE, FASTING 112 MG/DL (80-110); MAGNESIUM LEVEL 2.2 MG/DL (1.8-2.4); POTASSIUM SERUM 4.3 MEQ/L (3.5-5.1); SODIUM LEVEL 142 MEQ/L (136-145)
[2017-02-27] MEDS: SYMBICORT 160/4.5MCG INHALER 6GM INH SCH ×2 (07:33→20:13)
[2017-02-27] MEDS: HumaLOG INSULIN (NovoLOG) PER UNIT SC SCH ×4 (08:07→21:00)
[2017-02-27] MEDS: LEVEMIR (INSULIN DETEMIR) 1 UNITS/0.01ML SC SCH ×2 (08:08→21:06)
[2017-02-27] MEDS: PHENYTOIN ER 100 MG CAP PO SCH ×2 (08:08→21:07)
[2017-02-27] MEDS: TROSPIUM 20 MG TAB PO SCH ×2 (08:08→21:07)
[2017-02-27] MEDS: DOXYCYCLINE HYCLATE 100 MG TAB PO SCH ×2 (08:09→21:09)
[2017-02-27] MEDS: oxyBUTYnin *DITROPAN XL* 5 MG TABCR PO SCH (08:09)
[2017-02-27] MEDS: PANTOPRAZOLE 40MG TAB (PROTONIX) PO SCH (08:09)
[2017-02-27] MEDS: FERROUS SULFATE 325MG TAB PO SCH ×2 (08:09→21:08)
[2017-02-27] MEDS: METOPROLOL TARTRATE 100 MG TAB PO SCH ×2 (08:12→21:09)
[2017-02-27] MEDS: **hydrALAZINE** 50 MG TAB PO SCH ×3 (08:13→21:08)
[2017-02-27] MEDS: amLODIPine 5 MG TAB PO SCH ×2 (08:13→21:10)
[2017-02-27] MEDS: LOSARTAN 50 MG TAB PO SCH ×2 (08:14→21:09)
[2017-02-27] MEDS: BRIMONIDINE 0.15% OPHTH SOLN 5 ML OU SCH ×2 (08:14→21:06)
[2017-02-27] MEDS: DIVALPROEX 250 MG TAB PO SCH (08:16)
[2017-02-27] MEDS: LIDOCAINE 5% OINT 30 GM TOP PRN ×2 (08:29→21:07)
[2017-02-27] MEDS: ANEXSIA, NORCO 7.5MG/325MG TABLET(HYDROCODONE/APAP) PO PRN ×2 (08:30→21:11)
--- NOTE | 2017-02-27 08:30 | IPN ---
DATE: 02/26/2017 Ms. Cooney has been feeling about the same. She has general malaise and fatigue, does have pleuritic, right-sided chest pain. She has begun to produce some sputum, which she says is yellowish and she was wondering if she has bronchitis. Temperature is 98.7, pulse 74, respiratory rate 20, blood pressure 138/62, 97% on room air. Positive fluid status of 510. She is awake, no acute distress. Sitting on a chair at bedside. Mucous membranes are moist. Neck is supple. She is speaking in complete sentences. No accessory muscle use. Breathing is symmetrical. I:E ratio is 1:4. Some upper airway sounds are noted. There are no wheezes. Heart is distant sounding. Normal S1, S2. Abdomen soft, doughy, nontender. Radial pulses are 2+. There is at least 1+ bilateral lower extremity edema. White cell count 10.2, hemoglobin 6.8, platelets of 291. BUN 18, creatinine 0.52, magnesium is 1.7. My assessment is as follows: This is a 66-year-old with recurrent seizures. The plan is as follows: 1. Neurologic. The patient has been treated for seizures. The case has been discussed with neurology during the stay. There has been no seizure-like activity for the last 3 days. 2. The patient has a laceration of left periorbital region with resolved cellulitis. There is a hematoma underneath that. Sutures are still in place. I have elected to leave them again today because I believe there is still a large risk of wound dehiscense, which may result in scarring. No evidence of cellulitis. 3. The patient has a history of congestive heart failure. At this point, she may have some evidence of fluid overload based on the CT scan done yesterday. She may also have early bronchitis. I increased her prednisone yesterday. She was given Lasix this morning by the night team with transfusion of blood. 4. The patient has anemia. Hemoglobin and hematocrit trends downward, she is not obviously bleeding at this point. She has consented to blood transfusion. This may be partially dilutional as well and so we are pursuing some diuresis. 5. The patient has a history of chronic low back pain with disc bulges and central canal stenosis. Pain is currently well controlled in her back. 6. The patient has chest pain, which is not as notable as yesterday. It may be related to underlying bronchitis. We will obtain a sputum sample. 7. The patient has insulin-dependent diabetes. Metformin has been held. 8. The patient has mechanical deep venous thrombosis (DVT) prophylaxis with SCD and TEDS. 9. Plavix has been held due to the orbital hematoma.
[2017-02-27] MEDS: SODIUM CHLORIDE 0.9% INJ 10 ML SYR IV SCH (09:00)
[2017-02-27] MEDS: PRENATAL VITAMINS CHEWABLE TABLET PO SCH (12:58)
[2017-02-27] MEDS: predniSONE 2.5 MG TAB PO SCH (12:59)
[2017-02-27] MEDS: FUROSEMIDE 40 MG/4 ML VIAL (J1940) IV SCH (12:59)
[2017-02-27] MEDS: ASPIRIN 325 MG TAB PO SCH (12:59)
[2017-02-27 14:00] VITALS: BP 147/63
--- NOTE | 2017-02-27 15:11 | IPN ---
DATE: 02/27/2017 Ms. Cooney has no complaints of pain, chest pain, shortness of breath. She is frustrated at being in the hospital. Is tolerating a diet. Has had no further seizure-like activity. Temperature is 98, pulse 74, respiratory rate 20, blood pressure 142/67, 95% on room air. Input and output notable for a positive fluid balance of 1140, one bowel movement noted yesterday. She is awake and appropriately interactive. She has an area of swelling superior and lateral to her left eye. There are no sutures in place there. Mucous membranes are moist. Neck is supple and thick. Breathing is symmetrical and diminished. I:E ratio is 1:3. There is tenderness of the right chest wall. There is no erythema at the site of her port. There is no fluctuance. Abdomen soft, doughy, nontender. There is lower extremity edema. White cell count 11.5, hemoglobin 8.3, and platelets 274, BUN 18, creatinine 0.54. My assessment is as follows: This is a 66-year-old with history of recurrent seizures. The plan is as follows: 1. Neurologic. The patient has been treated for seizures. The case has been discussed with neurology during the stay. There has been no seizure-like activity for the last 4 days. 2. The patient has a laceration of the periorbital region with resolved cellulitis. There continues to be a hematoma under that. Skin is somewhat tense. Sutures are still in place. I have elected to leave them in. This should be reevaluated on a daily basis. There is no evidence of cellulitis. 3. The patient has a history of congestive heart failure. There is no recent weight. We will continue with some diuresis today with IV Lasix, but this should also be considered on a daily basis. There was also concern for the possibility of some early bronchitis. She is at baseline level of steroids, which I have increased. We will continue with 20 mg of prednisone in addition to her normal dose, at least for the next 1 to 2 days. 4. The patient has anemia. She has received a blood transfusion during the stay. There is no obvious acute blood loss. She did also receive intravenous iron during her stay. 5. The patient has a history of chronic low back pain and central canal stenosis. Pain is currently well controlled. 6. The patient has had right sided chest pain. We will discuss the possibility of pain related to her Mediport, which the patient thinks this is, with Dr. Boston in general today. 7. The patient has insulin-dependent diabetes. Metformin has been held. 8. The patient has deep venous thrombosis (DVT) prophylaxis with SCD and TEDS, which she is wearing during my examination. Plavix has been held for this patient due to her orbital hematoma.
[2017-02-27] MEDS: ROSUVASTATIN 10 MG TAB (CRESTOR) PO SCH (21:07)
[2017-02-27] MEDS: DIVALPROEX 500 MG TAB PO SCH (21:07)
[2017-02-27] MEDS: predniSONE 20 MG TAB PO SCH (21:09)
[2017-02-27 22:00] VITALS: BP 147/68
[2017-02-28 05:51] LABS: MEAN CORPUSCULAR HEMOGLOBIN 30.3 pg (27.0-33.0); MEAN CORPUSCULAR HGB CONC 33.1 g/dl (32.0-36.5); MEAN CORPUSCULAR VOLUME 91.6 fl (80.0-96.0); PLATELET COUNT, AUTOMATED 308 10^3/uL (150-450); RED CELL DISTRIBUTION WIDTH 14.1 % (11.5-14.5); WHITE BLOOD COUNT 11.1 10^3/uL (4.0-10.0)
[2017-02-28 06:00] VITALS: BP 154/69
[2017-02-28 06:07] LABS: ANION GAP 7 MEQ/L (8-16); BLOOD UREA NITROGEN 20 MG/DL (7-18); CALCIUM LEVEL 8.2 MG/DL (8.8-10.2); CARBON DIOXIDE LEVEL 27 MEQ/L (21-32); CHLORIDE LEVEL 106 MEQ/L (98-107); CREATININE FOR GFR 0.67 MG/DL (0.55-1.02); GLOMERULAR FILTRATION RATE > 60.0 (>45); GLUCOSE, FASTING 138 MG/DL (80-110); MAGNESIUM LEVEL 2.3 MG/DL (1.8-2.4); POTASSIUM SERUM 4.1 MEQ/L (3.5-5.1); SODIUM LEVEL 140 MEQ/L (136-145)
[2017-02-28] MEDS: SYMBICORT 160/4.5MCG INHALER 6GM INH SCH ×2 (07:34→20:59)
[2017-02-28] MEDS: HumaLOG INSULIN (NovoLOG) PER UNIT SC SCH ×4 (08:35→21:00)
[2017-02-28] MEDS: PHENYTOIN ER 100 MG CAP PO SCH ×2 (08:36→21:12)
[2017-02-28] MEDS: LEVEMIR (INSULIN DETEMIR) 1 UNITS/0.01ML SC SCH ×2 (08:36→21:14)
[2017-02-28] MEDS: **hydrALAZINE** 50 MG TAB PO SCH ×3 (08:37→21:16)
[2017-02-28] MEDS: TROSPIUM 20 MG TAB PO SCH ×2 (08:37→21:14)
[2017-02-28] MEDS: FUROSEMIDE 40 MG/4 ML VIAL (J1940) IV SCH (08:38)
[2017-02-28] MEDS: FERROUS SULFATE 325MG TAB PO SCH ×2 (08:38→21:13)
[2017-02-28] MEDS: amLODIPine 5 MG TAB PO SCH ×2 (08:38→21:16)
[2017-02-28] MEDS: LOSARTAN 50 MG TAB PO SCH ×2 (08:39→21:15)
[2017-02-28] MEDS: DOXYCYCLINE HYCLATE 100 MG TAB PO SCH ×2 (08:39→21:13)
[2017-02-28] MEDS: PANTOPRAZOLE 40MG TAB (PROTONIX) PO SCH (08:40)
[2017-02-28] MEDS: oxyBUTYnin *DITROPAN XL* 5 MG TABCR PO SCH (08:40)
[2017-02-28] MEDS: METOPROLOL TARTRATE 100 MG TAB PO SCH ×2 (08:40→21:15)
[2017-02-28] MEDS: BRIMONIDINE 0.15% OPHTH SOLN 5 ML OU SCH ×2 (08:41→21:14)
[2017-02-28] MEDS: DIVALPROEX 250 MG TAB PO SCH (08:44)
[2017-02-28] MEDS: ANEXSIA, NORCO 7.5MG/325MG TABLET(HYDROCODONE/APAP) PO PRN ×2 (08:45→19:25)
[2017-02-28] MEDS: SODIUM CHLORIDE 0.9% INJ 10 ML SYR IV SCH (08:47)
--- NOTE | 2017-02-28 08:57 | IPNPDOC ---
Text Note Date of Service The patient was seen on 02/28/17. NOTE Subjective: Patient seen and examined at bedside. Complains of cough with difficulty expectorating. She is frustrated at being in the hospital. Is tolerating a diet. Has had no further seizure-like activity. Objective: General: NAD, lying comfortably in bed HEENT: NC/AT, left periorbital swelling, sutures in place, EOMI, PERRL Lungs: CTA B/L Heart: +S1S2, RRR Abd: soft, obese, NT, +BS Ext: bilateral lower extremity edema Psych: AAOx3 Assesment: This is a 66-year-old with history of recurrent seizures. The plan is as follows: 1. Neurologic. The patient has been treated for seizures. The case has been discussed with neurology during the stay. There has been no seizure-like activity for the last 5 days. 2. The patient has a laceration of the periorbital region with resolved cellulitis. There continues to be a hematoma under that. Skin is somewhat tense. Sutures are still in place. There is no evidence of cellulitis. 3. The patient has a history of congestive heart failure. We will continue with some diuresis today with IV Lasix, will re-evaluate daily. There was also concern for the possibility of some early bronchitis. She is at baseline level of steroids, which have been increased. We will continue with 20 mg of prednisone in addition to her normal dose, at least for the next 24- 48 hours. 4. The patient has anemia. She has received a blood transfusion during the stay. There is no obvious acute blood loss. She did also receive intravenous iron during her stay. 5. The patient has a history of chronic low back pain and central canal stenosis. Pain is currently well controlled. 6. The patient has had right sided chest pain. She does have a right chest Mediport - case has been discussed with surgery - Dr. Boston. 7. The patient has insulin-dependent diabetes. Metformin has been held. 8. The patient has deep venous thrombosis (DVT) prophylaxis with SCD and TEDS. Plavix has been held for this patient due to her orbital hematoma. VS,Fishbone, I+O VS, Fishbone, I+O Laboratory Tests 02/28/17 05:33 Red Blood Count 2.87 L, Mean Corpuscular Volume 91.6, Mean Corpuscular Hemoglobin 30.3, Mean Corpuscular Hemoglobin Concent 33.1, Red Cell Distribution Width 14.1, Calcium Level 8.2 L Vital Signs Date Time Temp Pulse Resp B/P (MAP) Pulse Ox O2 Delivery O2 Flow Rate FiO2 02/28/17 08:45 20 02/28/17 08:40 72 154/69 02/28/17 06:00 98.2 98 Room Air JACK SILVA MD Feb 28, 2017 08:57
[2017-02-28] MEDS: predniSONE 2.5 MG TAB PO SCH (12:58)
[2017-02-28] MEDS: ASPIRIN 325 MG TAB PO SCH (12:58)
[2017-02-28] MEDS: PRENATAL VITAMINS CHEWABLE TABLET PO SCH (12:58)
[2017-02-28 14:00] VITALS: BP 142/65
[2017-02-28] MEDS: predniSONE 20 MG TAB PO SCH (21:13)
[2017-02-28] MEDS: ROSUVASTATIN 10 MG TAB (CRESTOR) PO SCH (21:13)
[2017-02-28] MEDS: DIVALPROEX 500 MG TAB PO SCH (21:13)
[2017-02-28] MEDS: guaiFENesin SYRUP 200 MG/10 ML UDC PO PRN (21:14)
[2017-02-28] MEDS: LIDOCAINE 5% OINT 30 GM TOP PRN (21:17)
[2017-02-28 22:00] VITALS: BP 162/70
[2017-03-01] MEDS: SODIUM CHLORIDE 0.9% INJ 10 ML SYR IV PRN (04:51)
[2017-03-01 05:43] LABS: MEAN CORPUSCULAR HEMOGLOBIN 29.5 pg (27.0-33.0); MEAN CORPUSCULAR HGB CONC 32.3 g/dl (32.0-36.5); MEAN CORPUSCULAR VOLUME 91.2 fl (80.0-96.0); PLATELET COUNT, AUTOMATED 342 10^3/uL (150-450); RED CELL DISTRIBUTION WIDTH 14.2 % (11.5-14.5); WHITE BLOOD COUNT 8.9 10^3/uL (4.0-10.0)
[2017-03-01 06:00] VITALS: BP 140/62
[2017-03-01 06:08] LABS: ANION GAP 7 MEQ/L (8-16); BLOOD UREA NITROGEN 19 MG/DL (7-18); CALCIUM LEVEL 8.1 MG/DL (8.8-10.2); CARBON DIOXIDE LEVEL 29 MEQ/L (21-32); CHLORIDE LEVEL 106 MEQ/L (98-107); CREATININE FOR GFR 0.56 MG/DL (0.55-1.02); GLOMERULAR FILTRATION RATE > 60.0 (>45); GLUCOSE, FASTING 126 MG/DL (80-110); MAGNESIUM LEVEL 2.3 MG/DL (1.8-2.4); POTASSIUM SERUM 4.5 MEQ/L (3.5-5.1); SODIUM LEVEL 142 MEQ/L (136-145)
[2017-03-01] MEDS: HumaLOG INSULIN (NovoLOG) PER UNIT SC SCH ×4 (07:38→21:00)
[2017-03-01] MEDS: SYMBICORT 160/4.5MCG INHALER 6GM INH SCH ×2 (08:28→20:38)
--- NOTE | 2017-03-01 08:43 | IPNPDOC ---
Text Note Date of Service The patient was seen on 03/01/17. NOTE Subjective: Patient seen and examined at bedside. States her cough has improved. No new medical complaints. Objective: General: NAD, sitting comfortably in chair eating breakfast HEENT: NC/AT, left periorbital swelling - improved from yesterday, sutures in place, EOMI, PERRL Lungs: CTA B/L Heart: +S1S2, RRR Abd: soft, obese, NT, +BS Ext: bilateral lower extremity edema Psych: AAOx3 Assessment: This is a 66-year-old with history of recurrent seizures. Plan: 1. Neurologic. The patient has been treated for seizures. The case has been discussed with neurology. There have been no seizure-like activity for the last 5 days. 2. The patient has a laceration of the periorbital region with resolved cellulitis. Sutures are still in place. There is no evidence of cellulitis. 3. The patient has a history of congestive heart failure. We will continue with some diuresis today with IV Lasix, anticipating transitioning to PO tomorrow. She is at baseline level of steroids, which have been increased. We will continue with 20 mg of prednisone in addition to her normal dose, at least for the next 24- 48 hours. 4. The patient has anemia. She has received a blood transfusion during the stay. There is no obvious acute blood loss. She did also receive intravenous iron during her stay. 5. The patient has a history of chronic low back pain and central canal stenosis. Pain is currently well controlled. 6. The patient has had right sided chest pain. She does have a right chest Mediport - case has been discussed with surgery - Dr. Boston. 7. The patient has insulin-dependent diabetes. Metformin has been held. 8. The patient has deep venous thrombosis (DVT) prophylaxis with SCD and TEDS. Plavix has been held for this patient due to her orbital hematoma. VS,Fishbone, I+O VS, Fishbone, I+O Laboratory Tests 03/01/17 05:32 Red Blood Count 2.95 L, Mean Corpuscular Volume 91.2, Mean Corpuscular Hemoglobin 29.5, Mean Corpuscular Hemoglobin Concent 32.3, Red Cell Distribution Width 14.2, Calcium Level 8.1 L Vital Signs Date Time Temp Pulse Resp B/P (MAP) Pulse Ox O2 Delivery O2 Flow Rate FiO2 03/01/17 06:00 97.7 67 20 140/62 (88) 99 Room Air JACK SILVA MD Mar 01, 2017 08:43
[2017-03-01] MEDS: LEVEMIR (INSULIN DETEMIR) 1 UNITS/0.01ML SC SCH ×2 (08:53→22:09)
[2017-03-01] MEDS: FUROSEMIDE 40 MG/4 ML VIAL (J1940) IV SCH (08:54)
[2017-03-01] MEDS: PHENYTOIN ER 100 MG CAP PO SCH ×2 (08:54→22:12)
[2017-03-01] MEDS: FERROUS SULFATE 325MG TAB PO SCH ×2 (08:54→22:13)
[2017-03-01] MEDS: PANTOPRAZOLE 40MG TAB (PROTONIX) PO SCH (08:54)
[2017-03-01] MEDS: DOXYCYCLINE HYCLATE 100 MG TAB PO SCH ×2 (08:54→22:14)
[2017-03-01] MEDS: DIVALPROEX 250 MG TAB PO SCH (08:55)
[2017-03-01] MEDS: TROSPIUM 20 MG TAB PO SCH ×2 (08:55→22:11)
[2017-03-01] MEDS: oxyBUTYnin *DITROPAN XL* 5 MG TABCR PO SCH (08:55)
[2017-03-01] MEDS: LOSARTAN 50 MG TAB PO SCH ×2 (08:57→22:14)
[2017-03-01] MEDS: amLODIPine 5 MG TAB PO SCH ×2 (08:58→22:14)
[2017-03-01] MEDS: SODIUM CHLORIDE 0.9% INJ 10 ML SYR IV SCH (08:58)
[2017-03-01] MEDS: **hydrALAZINE** 50 MG TAB PO SCH ×3 (08:58→22:13)
[2017-03-01] MEDS: METOPROLOL TARTRATE 100 MG TAB PO SCH ×2 (08:58→22:11)
[2017-03-01] MEDS: BRIMONIDINE 0.15% OPHTH SOLN 5 ML OU SCH ×2 (08:59→22:10)
[2017-03-01] MEDS: ASPIRIN 325 MG TAB PO SCH (11:49)
[2017-03-01] MEDS: predniSONE 2.5 MG TAB PO SCH (11:49)
[2017-03-01] MEDS: PRENATAL VITAMINS CHEWABLE TABLET PO SCH (11:49)
[2017-03-01 14:00] VITALS: BP 154/68
[2017-03-01] MEDS: ANEXSIA, NORCO 7.5MG/325MG TABLET(HYDROCODONE/APAP) PO PRN (17:15)
[2017-03-01 22:00] VITALS: BP 169/72
[2017-03-01] MEDS: LIDOCAINE 5% OINT 30 GM TOP PRN (22:10)
[2017-03-01] MEDS: guaiFENesin SYRUP 200 MG/10 ML UDC PO PRN (22:10)
[2017-03-01] MEDS: ACETAMINOPHEN TAB 650MG DOSE (2X325MG) PO PRN (22:11)
[2017-03-01] MEDS: ROSUVASTATIN 10 MG TAB (CRESTOR) PO SCH (22:12)
[2017-03-01] MEDS: DIVALPROEX 500 MG TAB PO SCH (22:12)
[2017-03-01] MEDS: predniSONE 20 MG TAB PO SCH (22:13)
[2017-03-02 01:22] LABS: MEAN CORPUSCULAR HEMOGLOBIN 29.9 pg (27.0-33.0); MEAN CORPUSCULAR HGB CONC 32.4 g/dl (32.0-36.5); MEAN CORPUSCULAR VOLUME 92.3 fl (80.0-96.0); PLATELET COUNT, AUTOMATED 318 10^3/uL (150-450); WHITE BLOOD COUNT 9.2 10^3/uL (4.0-10.0)
[2017-03-02 01:51] LABS: ANION GAP 5 MEQ/L (8-16); BLOOD UREA NITROGEN 19 MG/DL (7-18); CARBON DIOXIDE LEVEL 31 MEQ/L (21-32); CHLORIDE LEVEL 107 MEQ/L (98-107); CREATININE FOR GFR 0.52 MG/DL (0.55-1.02); GLOMERULAR FILTRATION RATE > 60.0 (>45); GLUCOSE, FASTING 217 MG/DL (80-110); MAGNESIUM LEVEL 2.3 MG/DL (1.8-2.4); POTASSIUM SERUM 4.3 MEQ/L (3.5-5.1); SODIUM LEVEL 143 MEQ/L (136-145)
--- NOTE | 2017-03-02 03:00 | REPUSA ---
CLINICAL HISTORY: Chest pain. COMMENTS: Right Port-A-Cath is in good position with its tip in the superior vena cava. AP view of chest reveals no evidence of active pleural or pulmonary parenchymal abnormality. The cardiac silhouette is enlarged. The mediastinum and pulmonary vessels appear normal. Aorta is tor tuous. Degenerative changes are noted in the thoracic spine. IMPRESSION: No evidence of acute pulmonary pathology. Enlarged cardiac silhouette. Tortuous aorta. Thank you for your kind referral of this patient.
[2017-03-02 06:00] VITALS: BP 153/55
[2017-03-02] MEDS: SYMBICORT 160/4.5MCG INHALER 6GM INH SCH ×2 (07:21→19:27)
--- NOTE | 2017-03-02 08:57 | IPNPDOC ---
Text Note Date of Service The patient was seen on 03/02/17. NOTE Subjective: Patient seen and examined at bedside. Overnight events significant for chest pain, which has resolved. She states she had some bleeding from her right periorbital wound. Denies any changes in vision or pain with extraocular movements. Objective: General: NAD, lying comfortably in bed HEENT: NC/AT, bandage in place, left restorationist/lateral orbit, area is C/D/I, EOMI, PERRL Lungs: CTA B/L Heart: +S1S2, RRR Abd: soft, obese, NT, +BS Ext: bilateral lower extremity edema Psych: AAOx3 Assessment: This is a 66-year-old with history of recurrent seizures. Plan: 1. Neurologic. The patient has been treated for seizures. The case has been discussed with neurology. There have been no seizure-like activity for the last week. 2. The patient has a laceration of the periorbital region with resolved cellulitis. There was some bleeding last night which has resolved. Bandages are in place. There is no evidence of cellulitis. 3. The patient has a history of congestive heart failure. We will transition to PO Lasix today. She is at baseline level of steroids, which have been increased. We will taper to her home dosage of steroids. 4. The patient has anemia. She has received a blood transfusion during the stay. There is no obvious acute blood loss. She did also receive intravenous iron during her stay. 5. The patient has a history of chronic low back pain and central canal stenosis. Pain is currently well controlled. 6. The patient has had right sided chest pain, with another episode last night. Workup has been negative. She does have a right chest Mediport - case has been discussed previously with surgery - Dr. Boston. 7. The patient has insulin-dependent diabetes. Metformin has been held. 8. The patient has deep venous thrombosis (DVT) prophylaxis with SCD and TEDS. Plavix has been held for this patient due to her orbital hematoma. VS,Fishbone, I+O VS, Fishbone, I+O Laboratory Tests 03/02/17 01:16 Red Blood Count 2.74 L, Mean Corpuscular Volume 92.3, Mean Corpuscular Hemoglobin 29.9, Mean Corpuscular Hemoglobin Concent 32.4, Red Cell Distribution Width 14.0, Calcium Level 8.0 L Vital Signs Date Time Temp Pulse Resp B/P (MAP) Pulse Ox O2 Delivery O2 Flow Rate FiO2 03/02/17 06:00 97.2 82 18 153/55 (87) 94 Room Air JACK SILVA MD Mar 02, 2017 08:57
[2017-03-02] MEDS: FUROSEMIDE 40 MG/4 ML VIAL (J1940) IV SCH (09:25)
[2017-03-02] MEDS: HumaLOG INSULIN (NovoLOG) PER UNIT SC SCH ×4 (09:25→21:00)
[2017-03-02] MEDS: LEVEMIR (INSULIN DETEMIR) 1 UNITS/0.01ML SC SCH ×2 (09:25→22:07)
[2017-03-02] MEDS: SODIUM CHLORIDE 0.9% INJ 10 ML SYR IV SCH (09:26)
[2017-03-02] MEDS: PHENYTOIN ER 100 MG CAP PO SCH ×2 (09:27→22:04)
[2017-03-02] MEDS: TROSPIUM 20 MG TAB PO SCH ×2 (09:27→22:06)
[2017-03-02] MEDS: FERROUS SULFATE 325MG TAB PO SCH ×2 (09:28→22:07)
[2017-03-02] MEDS: PANTOPRAZOLE 40MG TAB (PROTONIX) PO SCH (09:28)
[2017-03-02] MEDS: DOXYCYCLINE HYCLATE 100 MG TAB PO SCH ×2 (09:29→22:06)
[2017-03-02] MEDS: oxyBUTYnin *DITROPAN XL* 5 MG TABCR PO SCH (09:29)
[2017-03-02] MEDS: LOSARTAN 50 MG TAB PO SCH ×2 (09:30→22:05)
[2017-03-02] MEDS: amLODIPine 5 MG TAB PO SCH ×2 (09:30→22:05)
[2017-03-02] MEDS: **hydrALAZINE** 50 MG TAB PO SCH ×3 (09:30→22:05)
[2017-03-02] MEDS: METOPROLOL TARTRATE 100 MG TAB PO SCH ×2 (09:31→22:07)
[2017-03-02] MEDS: DIVALPROEX 250 MG TAB PO SCH (09:35)
[2017-03-02] MEDS: TORSEMIDE 20 MG TAB PO SCH (09:35)
[2017-03-02] MEDS: BRIMONIDINE 0.15% OPHTH SOLN 5 ML OU SCH ×2 (09:35→22:09)
--- NOTE | 2017-03-02 10:10 | ECGEPIP ---
Stationary ECG Study [facility] Test Date: 2017-03-02 Pat Name: DEE DEE SCHULTZ Department: Room: [place] [address] Gender: F Field Care Coordinator: : 1950 Requested By: ZECHARIAH LITTLEJOHN Order Number: [id number] Reading MD: Юлия Reza Measurements Intervals [place] Rate: 58 P: VA: 0 QRS: 32 QRSD: 79 T: 67 QT: 439 QTc: 432 Interpretive Statements SINUS BRADYCARDIA 1ST DEGREE BLOCK NONSPECIFIC T-WAVE ABNORMALITY RATE SLOWER C/W 02/25/17 Electronically Signed On 03-02-2017 6:47:30 EST by Юлия Reza
[2017-03-02 10:11] LABS: HEMOGLOBIN A 96.5 % (94.0-98.0); HEMOGLOBIN F (FETAL) 1.4 % (0.0-2.0)
[2017-03-02] MEDS: ASPIRIN 325 MG TAB PO SCH (12:55)
[2017-03-02] MEDS: predniSONE 2.5 MG TAB PO SCH (12:55)
[2017-03-02] MEDS: PRENATAL VITAMINS CHEWABLE TABLET PO SCH (12:55)
[2017-03-02 14:00] VITALS: BP 155/69
[2017-03-02 22:00] VITALS: BP 151/67
[2017-03-02] MEDS: ROSUVASTATIN 10 MG TAB (CRESTOR) PO SCH (22:06)
[2017-03-02] MEDS: DIVALPROEX 500 MG TAB PO SCH (22:06)
[2017-03-02] MEDS: predniSONE 20 MG TAB PO SCH (22:06)
[2017-03-02] MEDS: ANEXSIA, NORCO 7.5MG/325MG TABLET(HYDROCODONE/APAP) PO PRN (22:25)
[2017-03-03] MEDS: SODIUM CHLORIDE 0.9% INJ 10 ML SYR IV PRN (05:15)
[2017-03-03 05:37] LABS: MEAN CORPUSCULAR HEMOGLOBIN 29.7 pg (27.0-33.0); MEAN CORPUSCULAR HGB CONC 32.3 g/dl (32.0-36.5); MEAN CORPUSCULAR VOLUME 92.1 fl (80.0-96.0); PLATELET COUNT, AUTOMATED 352 10^3/uL (150-450); RED CELL DISTRIBUTION WIDTH 13.8 % (11.5-14.5); WHITE BLOOD COUNT 7.7 10^3/uL (4.0-10.0)
[2017-03-03 05:56] LABS: ANION GAP 8 MEQ/L (8-16); BLOOD UREA NITROGEN 19 MG/DL (7-18); CALCIUM LEVEL 8.5 MG/DL (8.8-10.2); CARBON DIOXIDE LEVEL 30 MEQ/L (21-32); CHLORIDE LEVEL 106 MEQ/L (98-107); CREATININE FOR GFR 0.52 MG/DL (0.55-1.02); GLOMERULAR FILTRATION RATE > 60.0 (>45); GLUCOSE, FASTING 157 MG/DL (80-110); MAGNESIUM LEVEL 2.2 MG/DL (1.8-2.4); POTASSIUM SERUM 4.1 MEQ/L (3.5-5.1); SODIUM LEVEL 144 MEQ/L (136-145)
[2017-03-03 06:00] VITALS: BP 168/69
[2017-03-03] MEDS: SYMBICORT 160/4.5MCG INHALER 6GM INH SCH (07:18)
[2017-03-03] MEDS: HumaLOG INSULIN (NovoLOG) PER UNIT SC SCH ×2 (08:57→12:49)
[2017-03-03] MEDS: LEVEMIR (INSULIN DETEMIR) 1 UNITS/0.01ML SC SCH (08:58)
[2017-03-03] MEDS: SODIUM CHLORIDE 0.9% INJ 10 ML SYR IV SCH (08:58)
[2017-03-03] MEDS: FUROSEMIDE 40 MG/4 ML VIAL (J1940) IV SCH (08:58)
[2017-03-03] MEDS: METOPROLOL TARTRATE 100 MG TAB PO SCH (09:59)
[2017-03-03] MEDS: DOXYCYCLINE HYCLATE 100 MG TAB PO SCH (09:59)
[2017-03-03] MEDS: DIVALPROEX 250 MG TAB PO SCH (10:00)
[2017-03-03] MEDS: PANTOPRAZOLE 40MG TAB (PROTONIX) PO SCH (10:00)
--- NOTE | 2017-03-03 10:00 | IPNPDOC ---
Text Note Date of Service The patient was seen on 03/03/17. NOTE Subjective: Patient seen and examined at bedside. No new medical complaints today. States she is feeling better. No acute overnight events reported. Objective: General: NAD, lying comfortably in bed HEENT: NC/AT, bandage in place, left advent/lateral orbit, area is C/D/I, EOMI, PERRL Lungs: CTA B/L Heart: +S1S2, RRR Abd: soft, obese, NT, +BS Ext: bilateral lower extremity edema Psych: AAOx3 Assessment: This is a 66-year-old with history of recurrent seizures. Plan: 1. Neurologic. The patient has been treated for seizures. The case has been discussed with neurology. There have been no seizure-like activity for over one week. 2. The patient has a laceration of the periorbital region with resolved cellulitis. Bandages are in place. There is no evidence of cellulitis. 3. The patient has a history of congestive heart failure. Continue PO torsemide. 4. The patient has anemia. She has received a blood transfusion during the stay. There is no obvious acute blood loss. She did also receive intravenous iron during her stay. 5. The patient has a history of chronic low back pain and central canal stenosis. Pain is currently well controlled. 6. The patient has had right sided chest pain, with another episode last night. Workup has been negative. She does have a right chest Mediport - case has been discussed previously with surgery - Dr. Boston. 7. The patient has insulin-dependent diabetes. Metformin has been held. 8. The patient has deep venous thrombosis (DVT) prophylaxis with SCD and TEDS. Plavix has been held for this patient due to her orbital hematoma. Dispo: Pending placement to rehab. VS,Fishbone, I+O VS, Fishbone, I+O Laboratory Tests 03/03/17 05:18 Red Blood Count 2.79 L, Mean Corpuscular Volume 92.1, Mean Corpuscular Hemoglobin 29.7, Mean Corpuscular Hemoglobin Concent 32.3, Red Cell Distribution Width 13.8, Calcium Level 8.5 L Vital Signs Date Time Temp Pulse Resp B/P (MAP) Pulse Ox O2 Delivery O2 Flow Rate FiO2 03/03/17 06:00 97.6 61 18 168/69 (102) 99 03/02/17 22:55 Room Air I&O- Last 24 Hours up to 6 AM 03/04/17 06:00 Intake Total 250 ml Output Total 0 ml Balance 250 ml JACK SILVA MD Mar 03, 2017 10:00
[2017-03-03] MEDS: TORSEMIDE 20 MG TAB PO SCH (10:01)
[2017-03-03] MEDS: oxyBUTYnin *DITROPAN XL* 5 MG TABCR PO SCH (10:02)
[2017-03-03] MEDS: PHENYTOIN ER 100 MG CAP PO SCH (10:02)
[2017-03-03] MEDS: FERROUS SULFATE 325MG TAB PO SCH (10:02)
[2017-03-03 10:03] VITALS: BP 132/60
[2017-03-03] MEDS: **hydrALAZINE** 50 MG TAB PO SCH (10:03)
[2017-03-03] MEDS: TROSPIUM 20 MG TAB PO SCH (10:03)
[2017-03-03] MEDS: LOSARTAN 50 MG TAB PO SCH (10:04)
[2017-03-03] MEDS: amLODIPine 5 MG TAB PO SCH (10:04)
[2017-03-03] MEDS: BRIMONIDINE 0.15% OPHTH SOLN 5 ML OU SCH (10:18)
[2017-03-03 10:50] VITALS: BP 132/60
[2017-03-03] MEDS ORDERED: DEPA1TAB3 PO (11:07)
[2017-03-03] MEDS ORDERED: DEPA250T32 PO (11:07)
[2017-03-03] MEDS ORDERED: DEMA20TA6 PO (11:07)
[2017-03-03] MEDS ORDERED: PRED10TA2 PO (11:10)
[2017-03-03] MEDS: ANEXSIA, NORCO 7.5MG/325MG TABLET(HYDROCODONE/APAP) PO PRN (11:14)
[2017-03-03] MEDS: LIDOCAINE 5% OINT 30 GM TOP PRN (11:30)
[2017-03-03] MEDS: predniSONE 2.5 MG TAB PO SCH (12:03)
[2017-03-03] MEDS: ASPIRIN 325 MG TAB PO SCH (12:03)
[2017-03-03] MEDS: PRENATAL VITAMINS CHEWABLE TABLET PO SCH (12:03)
[2017-03-03 14:16] LABS: HEMOGLOBIN A 96.6 % (94.0-98.0); HEMOGLOBIN F (FETAL) 1.3 % (0.0-2.0)
--- NOTE | 2017-03-04 11:22 | DS.PDOC ---
Discharge Summary General Date of Admission Feb 16, 2017 at 22:39 Date of Discharge 03/03/17 Specialist/Consultants Involve Neurology Discharge Summary PROCEDURES PERFORMED DURING STAY: [None]. DISCHARGE DIAGNOSES: 1. Seizure disorder. 2. Non-compliance. 3. History of CVA with residual left sided deficits 4. HTN 5. COPD 6. DM 7. neuropathy 8. History of left breast CA 9. CAD 10. GERD 11. ANGELINA 12. Sarcoidosis 13. CHF 14. dyslipidemia 15. COMPLICATIONS/CHIEF COMPLAINT: Recurrent Seizures. HISTORY OF PRESENT ILLNESS: 66 y/o female with past medical history of hypertension, chronic obstructive pulmonary disease, diabetes mellitus, neuropathy, history of right-sided infarction with persistent left-sided weakness, history of left breast carcinoma, glaucoma, coronary artery disease, gastroesophageal reflux disease, seizure disorder, dyslipidemia, diastolic congestive heart failure, iron deficiency anemia, diverticulosis, obstructive sleep apnea, and sarcoidosis. She presented to ED today after suffering from 4x episodes of involuntary movements. The patient stated that her seizures last about 8 minutes, she had a residual period following the seizure of about 3-5 minutes where she is fatigued. She stated that she urinates on herself during the episodes and will bite the inside of her mouth, she does not stool on herself. The first seizure was witnessed by her jeep driver. She stated that they were three hours apart , the last one occurred at 5 pm and she was on her recliner at home, she fell forward and hit her left eye on the coffee table. She states that before the seizures she had a visual disturbance/aura and both of her hands start to shake, this progressed to whole body involuntary movements. She admits she is not compliant with any of her medications as she is trying to move into an assisted living home and she forgets to take her medicines daily. She denies abdominal pain,cp, n/v, or SOB but admits to a frontal headache that happens after her seizures and lasts a few hours after the episode. She denies being ill recently, denies fevers, muscle aches or chills nor contact with anyone who has been sick. She denies illicit drug use. Denies pain with urination, and denies blood in urine or stool. HOSPITAL COURSE: Patient admitted for further evaluation and treatment for seizures. Seen by neurology with adjustment in her anti-epileptic medications. She did sustain a laceration to her face which has been healing. This occurred during a seizure prior to admission. She was found to be fluid overloaded, and diuresed with IV furosemide. She was also found to be anemia, and received IV iron. She had concerns regarding the patency of her chest port, and also had episodes of right sided chest pain, around her port. Acute coronary syndrome was ruled out. Her port was assessed by surgery on consultation with Dr. Boston. Plavix was held during admission for concerns of her periorbital laceration and development of hematoma. DISCHARGE MEDICATIONS: Please see below. ALLERGIES: Please see below. PHYSICAL EXAMINATION ON DISCHARGE: VITAL SIGNS: Please see below. General: NAD, lying comfortably in bed HEENT: NC/AT, bandage in place, left quaker/lateral orbit, area is C/D/I Lungs: CTA B/L Heart: +S1S2, RRR Abd: soft, obese, NT, +BS Ext: bilateral lower extremity edema Psych: AAOx3 LABORATORY DATA: Please see below. ACTIVITY: [As tolerated as per PT]. DIET: carb consistent, 2 gram sodium, heart healthy DISPOSITION: [facility] for rehab ITEMS TO FOLLOWUP ON ON OUTPATIENT: 1. PCP in 1-5 days. DISCHARGE CONDITION: [Stable]. TIME SPENT ON DISCHARGE: Greater than 30 minutes. Vital Signs/I&Os Vital Signs Date Time Temp Pulse Resp B/P (MAP) Pulse Ox O2 Delivery O2 Flow Rate FiO2 03/03/17 13:12 Room Air 03/03/17 12:05 18 03/03/17 10:50 98.1 72 132/60 (84) 94 Laboratory Data Labs 24H Laboratory Tests 2 03/03/17 12:10: Bedside Glucose (Misc Panel) 168H 03/04/17 10:20: Lab Scanned Report Transfusion Record FSBS Laboratory Tests Test 03/03/17 12:10 Range/Units Bedside Glucose (Misc Panel) 168 80-115 MG/DL Microbiology Microbiology 03/03/17 Gram Stain - Final, Resulted 03/03/17 Sputum Culture, Resulted Pending 03/02/17 Urine Culture - Final, Complete Discharge Medications Scheduled (Restasis) 0.05 % Emu, 1 DROP OU BID, (Reported) (Depakote) 500 Mg Tab, 500 MG PO QHS Amlodipine Besylate (Amlodipine Besylate) 5 Mg Tab, 5 MG PO BID, (Reported) Aspirin (Aspirin) 325 Mg Tab, 325 MG PO DAILY, (Reported) TAKES AT NOON Bimatoprost (Lumigan) 50 Drop/2.5 Ml Salma, 1 DROP OU DAILY, (Reported) Brimonidine Tartrate 0.15% (Brimonidine Tartrate) 100 Drop/5 Ml Soln, 1 DROP OU BID, (Reported) Budesonide/Formoterol (Symbicort 160-4.5 Mcg/Act) 60 Puff/Inhaler Aers, 2 PUFF INH BID, (Reported) Clopidogrel Bisulfate (Plavix) 75 Mg Tab, 75 MG PO DAILY, (Reported) Divalproex Sodium (Depakote) 250 Mg Tab, 250 MG PO QAM Ferrous Sulfate (Ferrous Sulfate) 325 Mg Tab, 325 MG PO BID, (Reported) Insulin Aspart (Novolog) 100 U/Ml Inj, 1 DOSE SC ACHS, (Reported) PER SLIDING SCALE Insulin Detemir (Levemir) 1 Units/0.01 Ml Susp, 60 UNITS SC BID, (Reported) Losartan Potassium (Losartan Potassium) 100 Mg Tab, 100 MG PO BID, (Reported) Metformin Hydrochloride (Metformin HCl) 1,000 Mg Tab, 1,000 MG PO BID, (Reported ) Metoprolol Tartrate (Metoprolol Tartrate) 100 Mg Tab, 100 MG PO BID, (Reported) Multivitamins/ ( 28-0.8 mg) 1 Tab Tab, 1 TAB PO DAILY, (Reported ) TAKES AT NOON Oxybutynin Chloride (Oxybutynin Chloride ER) 10 Mg Tab, 10 MG PO DAILY, ( Reported) NEW MED PRESCRIBED 02/16, HAS NOT STARTED Pantoprazole Sodium Sesquihydr (Protonix) 40 Mg Tab, 40 MG PO DAILY, (Reported) Prednisone (Prednisone) 10 Mg Tab, 10 MG PO DAILY Rosuvastatin Calcium (Rosuvastatin Calcium) 20 Mg Tab, 20 MG PO QHS, (Reported) Torsemide (Demadex) 20 Mg Tab, 60 MG PO DAILY Trospium Chloride (Trospium Chloride) 20 Mg Tab, 20 MG PO BID, (Reported) Vitamin D (Drisdol) 50,000 Unit Cap, 50,000 UNIT PO QWEEK, (Reported) SUNDAYS hydrALAZINE HCL (Hydralazine HCl) 100 Mg Tab, 100 MG PO TID, (Reported) Scheduled PRN (Lidocaine) Unknown Strength Cre, 1 DOSE EXT BID PRN for PAIN, (Reported) APPLIES TO FEET Acetaminophen/Hydrocodone ([place] 7.5-325 mg) 1 Tab Tab, 1 TAB PO TID PRN for PAIN, (Reported) Albuterol Sulfate (Albuterol Sulfate) 2.5 Mg/3 Ml Nebu, 2.5 MG INH Q2H PRN for SOB/WHEEZING, (Reported) Albuterol Sulfate (Proventil Hfa) 167 Puff/6.7 Gm Aers, 2 PUFFS INH Q4H PRN for SHORTNESS OF BREATH, (Reported) Ammonium Lactate (Ammonium Lactate) 12 % Lot, 1 DOSE TOP BID PRN for DRY SKIN, ( Reported) APPLY TO FEET Loperamide HCl (Loperamide A-D) 2 Mg Tab, 2 MG PO QIDP PRN for DIARRHEA, ( Reported) Nystatin (Nystatin Powder) 100,000 Unit/Gm Pow, 1 DOSE TOP for RASH, (Reported) APPLIES UNDER THE STOMACH Allergies Coded Allergies: Atorvastatin (Unverified Allergy, Unknown, 12/25/16) Baclofen (Unverified Allergy, Unknown, 12/25/16) Clindamycin (Unverified Allergy, Unknown, 12/25/16) Duloxetine (Verified Allergy, Unknown, 12/25/16) Levetiracetam (Verified Allergy, Unknown, 12/25/16) Lisinopril (Unverified Allergy, Unknown, 12/25/16) Sulfa Drugs (Verified Allergy, Unknown, 12/25/16) Topiramate (Verified Allergy, Unknown, hallucinates, 12/25/16) Tramadol (Unverified Allergy, Unknown, 12/25/16) JACK SILVA MD Mar 04, 2017 11:22
--- NOTE | 2017-03-25 14:56 | IPNPDOC ---
Text Note Date of Service Discharge Addendum NOTE Discharge Addendum: Please add to discharge diagnosis: Acute on chronic diastolic congestive heart failure, treated with parenteral furosemide. JACK SILVA MD Mar 25, 2017 14:56
== END 2017-03-03 13:44 | disposition home or self-care (01) | DRG 100 ==
LOC: M ED 16:54 → M ED INP 22:39 → M MSPAV 02-17 01:01
PROVIDERS: ATTEND Internal Medicine
PROC: 30253N1 (ICD-10-PCS; principal; 2017-02-23)
DX: G40.209 Localization-related (focal) (partial) symptomatic epilepsy and epileptic syndromes with complex partial seizures, not intractable, without status epilepticus (principal); I50.33 Acute on chronic diastolic (congestive) heart failure; I69.354 Hemiplegia and hemiparesis following cerebral infarction affecting left non-dominant side; L03.213 Periorbital cellulitis; I10 Essential (primary) hypertension; J44.9 Chronic obstructive pulmonary disease, unspecified; E11.40 Type 2 diabetes mellitus with diabetic neuropathy, unspecified; H40.9 Unspecified glaucoma; I25.10 Atherosclerotic heart disease of native coronary artery without angina pectoris; K21.9 Gastro-esophageal reflux disease without esophagitis; E78.5 Hyperlipidemia, unspecified; D50.9 Iron deficiency anemia, unspecified; K57.90 Diverticulosis of intestine, part unspecified, without perforation or abscess without bleeding; M51.26 Other intervertebral disc displacement, lumbar region; S01.81XA Laceration without foreign body of other part of head, initial encounter; S05.12XA Contusion of eyeball and orbital tissues, left eye, initial encounter; G47.33 Obstructive sleep apnea (adult) (pediatric); D86.9 Sarcoidosis, unspecified; Z85.3 Personal history of malignant neoplasm of breast; Z79.82 Long term (current) use of aspirin; Z79.4 Long term (current) use of insulin; Z79.52 Long term (current) use of systemic steroids; Z79.899 Other long term (current) drug therapy; Z88.2 Allergy status to sulfonamides; Z88.5 Allergy status to narcotic agent; Z88.8 Allergy status to other drugs, medicaments and biological substances; Z88.1 Allergy status to other antibiotic agents; Z87.891 Personal history of nicotine dependence; Z91.14 Patient's other noncompliance with medication regimen; W18.09XA Striking against other object with subsequent fall, initial encounter; Y92.009 Unspecified place in unspecified non-institutional (private) residence as the place of occurrence of the external cause; Y99.8 Other external cause status; J20.9 Acute bronchitis, unspecified

== ENCOUNTER → 2017-03-05 | Outpatient (REF) ==
[~2017-03-05] MED LIST changes: +DEMA20TA6 PO; +DEPA1TAB3 PO; +OXYB10TA PO; +TORS100T PO
[2017-03-05 14:14] LABS: ALBUMIN 3.1 GM/DL (3.2-5.2); ALBUMIN/GLOBULIN RATIO 0.91 (1.00-1.93); ALKALINE PHOSPHATASE 103 U/L (45-117); ALT/SGPT 53 U/L (12-78); ANION GAP 10 MEQ/L (8-16); AST/SGOT 25 U/L (7-37); BILIRUBIN,TOTAL 0.2 MG/DL (0.2-1.0); BLOOD UREA NITROGEN 16 MG/DL (7-18); CALCIUM LEVEL 8.4 MG/DL (8.8-10.2); CARBON DIOXIDE LEVEL 31 MEQ/L (21-32); CHLORIDE LEVEL 102 MEQ/L (98-107); CREATININE FOR GFR 0.61 MG/DL (0.55-1.02); GLOMERULAR FILTRATION RATE > 60.0 (>45); GLUCOSE, FASTING 100 MG/DL (80-110); PERCENT SATURATION 25.8 % (13.2-45.0); POTASSIUM SERUM 3.9 MEQ/L (3.5-5.1); SODIUM LEVEL 143 MEQ/L (136-145); TOTAL IRON BINDING CAPACITY 217 UG/DL (250-450); TOTAL PROTEIN 6.5 GM/DL (6.4-8.2)
== END ==
LOC: SKLAB5 06:06
PROVIDERS: ATTEND Internal Medicine
DX: D64.9 Anemia, unspecified (principal); I50.9 Heart failure, unspecified; E11.9 Type 2 diabetes mellitus without complications

== ENCOUNTER → 2017-03-09 | Outpatient (REF) ==
[2017-03-09 09:34] LABS: ANION GAP 7 MEQ/L (8-16); BLOOD UREA NITROGEN 15 MG/DL (7-18); CALCIUM LEVEL 8.5 MG/DL (8.8-10.2); CARBON DIOXIDE LEVEL 33 MEQ/L (21-32); CHLORIDE LEVEL 103 MEQ/L (98-107); GLOMERULAR FILTRATION RATE > 60.0 (>45); GLUCOSE, FASTING 95 MG/DL (80-110); POTASSIUM SERUM 3.8 MEQ/L (3.5-5.1); SODIUM LEVEL 143 MEQ/L (136-145)
== END ==
LOC: SKLAB5 07:56
PROVIDERS: ATTEND Internal Medicine
DX: I50.9 Heart failure, unspecified (principal)

== ENCOUNTER → 2017-03-10 | Outpatient (REF) | LOC: SKLAB5 08:11 | PROVIDERS: ATTEND Internal Medicine | DX: E11.9 Type 2 diabetes mellitus without complications (principal) ==

== ENCOUNTER → 2017-03-12 | Outpatient (REF) ==
[2017-03-12 09:49] LABS: MEAN CORPUSCULAR HEMOGLOBIN 29.5 pg (27.0-33.0); MEAN CORPUSCULAR HGB CONC 32.5 g/dl (32.0-36.5); MEAN CORPUSCULAR VOLUME 90.9 fl (80.0-96.0); PLATELET COUNT, AUTOMATED 391 10^3/uL (150-450); RED CELL DISTRIBUTION WIDTH 13.2 % (11.5-14.5); WHITE BLOOD COUNT 8.5 10^3/uL (4.0-10.0)
== END ==
LOC: SKLAB5 07:36
PROVIDERS: ATTEND Internal Medicine
DX: D64.9 Anemia, unspecified (principal)

== ENCOUNTER → 2017-03-19 | Outpatient (REF) ==
[2017-03-19 08:54] LABS: MEAN CORPUSCULAR HEMOGLOBIN 29.6 pg (27.0-33.0); MEAN CORPUSCULAR HGB CONC 32.6 g/dl (32.0-36.5); MEAN CORPUSCULAR VOLUME 90.9 fl (80.0-96.0); PLATELET COUNT, AUTOMATED 372 10^3/uL (150-450); RED CELL DISTRIBUTION WIDTH 13.4 % (11.5-14.5); WHITE BLOOD COUNT 7.4 10^3/uL (4.0-10.0)
== END ==
LOC: EEVIPCON → SKLAB4 10:53
PROVIDERS: ATTEND Internal Medicine
DX: D64.9 Anemia, unspecified (principal)

== ENCOUNTER → 2017-04-01 | Outpatient (REF) | LOC: SKLAB4 13:21 | DX: Z00.00 Encounter for general adult medical examination without abnormal findings (principal) ==

== ENCOUNTER → 2017-04-07 | Outpatient (REF) | LOC: SKLAB4 07:30 | DX: E55.9 Vitamin D deficiency, unspecified (principal); E83.42 Hypomagnesemia ==

== ENCOUNTER → 2017-04-08 | Outpatient (REF) ==
[2017-04-08 10:29] LABS: MAGNESIUM LEVEL 2.2 MG/DL (1.8-2.4)
[2017-04-08 10:37] LABS: TOTAL 25(OH) VITAMIN D 50.7 NG/ML (30.0-100.0)
== END ==
LOC: SKLAB4 07:00
DX: E55.9 Vitamin D deficiency, unspecified (principal); E53.8 Deficiency of other specified B group vitamins

== ENCOUNTER → 2017-04-13 | Outpatient (REF) ==
[2017-04-13 07:52] LABS: PHENYTOIN (DILANTIN) 16.7 UG/ML (10.0-20.0)
== END ==
LOC: SKLAB4 08:00
DX: Z51.81 Encounter for therapeutic drug level monitoring (principal); Z79.899 Other long term (current) drug therapy

== ENCOUNTER → 2017-04-22 | Outpatient (REF) | payer MEDICARE, MEDICAID ==
[2017-04-22 21:57] LABS: APPEARANCE, URINE CLEAR (CLEAR); BACTERIA, URINE AUTO NEGATIVE (NEGATIVE); BILIRUBIN, URINE AUTO NEGATIVE (NEGATIVE); BLOOD, URINE BLOOD NEGATIVE (NEGATIVE); COLOR, URINE YELLOW (YELLOW); GLUCOSE, URINE (UA) AUTO NEGATIVE (NEGATIVE); KETONE, URINE AUTO NEGATIVE (NEGATIVE); LEUKOCYTE ESTERASE, URINE AUTO TRACE (NEGATIVE); MUCUS, URINE SMALL (NEGATIVE); NITRITE, URINE AUTO NEGATIVE (NEGATIVE); PROTEIN, URINE AUTO NEGATIVE (NEGATIVE); RBC, URINE AUTO 3 /HPF (0-3); SPECIFIC GRAVITY URINE AUTO 1.012 (1.002-1.035); SQUAMOUS EPITHELIAL CELL UR AU 0 /HPF (0-6); UROBILINOGEN, URINE AUTO 0.2 mg/dL (0.0-2.0); WBC, URINE AUTO 3 /HPF (0-3)
== END ==
LOC: SKLAB4 21:29
DX: N39.0 Urinary tract infection, site not specified (principal)
CPT/HCPCS: 81001

== ENCOUNTER → 2017-04-27 | Outpatient (REF) | payer MEDICARE, MEDICAID ==
[2017-04-27 21:28] LABS: APPEARANCE, URINE HAZY (CLEAR); BACTERIA, URINE AUTO NEGATIVE (NEGATIVE); BILIRUBIN, URINE AUTO NEGATIVE (NEGATIVE); BLOOD, URINE BLOOD NEGATIVE (NEGATIVE); COLOR, URINE YELLOW (YELLOW); GLUCOSE, URINE (UA) AUTO NEGATIVE (NEGATIVE); KETONE, URINE AUTO NEGATIVE (NEGATIVE); LEUKOCYTE ESTERASE, URINE AUTO 2+ (NEGATIVE); MUCUS, URINE SMALL (NEGATIVE); NITRITE, URINE AUTO NEGATIVE (NEGATIVE); PROTEIN, URINE AUTO NEGATIVE (NEGATIVE); RBC, URINE AUTO 4 /HPF (0-3); SPECIFIC GRAVITY URINE AUTO 1.015 (1.002-1.035); SQUAMOUS EPITHELIAL CELL UR AU 1 /HPF (0-6); UROBILINOGEN, URINE AUTO 0.2 mg/dL (0.0-2.0); WBC, URINE AUTO 53 /HPF (0-3)
== END ==
LOC: SKLAB4 20:54
DX: R39.89 Other symptoms and signs involving the genitourinary system (principal)
CPT/HCPCS: 81001

== ENCOUNTER → 2017-05-13 | Outpatient (REF) | payer MEDICARE, MEDICAID ==
[2017-05-13 09:37] LABS: PHENYTOIN (DILANTIN) 32.8 UG/ML (10.0-20.0)
== END ==
LOC: SKLAB4 07:41
DX: G40.909 Epilepsy, unspecified, not intractable, without status epilepticus (principal)
CPT/HCPCS: 80185

== ENCOUNTER → 2017-05-20 | Outpatient (REF) | payer MEDICARE, MEDICAID ==
[2017-05-20 09:47] LABS: PHENYTOIN (DILANTIN) 27.7 UG/ML (10.0-20.0)
== END ==
LOC: SKLAB4 07:59
DX: R56.9 Unspecified convulsions (principal)
CPT/HCPCS: 80185

== ENCOUNTER → 2017-06-01 | Outpatient (REF) | payer MEDICARE, MEDICAID ==
[2017-06-01 09:27] LABS: ALBUMIN 3.7 GM/DL (3.2-5.2); ALBUMIN/GLOBULIN RATIO 1.23 (1.00-1.93); ALKALINE PHOSPHATASE 101 U/L (45-117); ALT/SGPT 29 U/L (12-78); ANION GAP 8 MEQ/L (8-16); AST/SGOT 13 U/L (7-37); BILIRUBIN,TOTAL 0.2 MG/DL (0.2-1.0); BLOOD UREA NITROGEN 19 MG/DL (7-18); CALCIUM LEVEL 8.5 MG/DL (8.8-10.2); CARBON DIOXIDE LEVEL 32 MEQ/L (21-32); CHLORIDE LEVEL 98 MEQ/L (98-107); CREATININE FOR GFR 0.66 MG/DL (0.55-1.30); GLOMERULAR FILTRATION RATE > 60.0 (>45); GLUCOSE, FASTING 282 MG/DL (70-100); IRON (FE) 71 UG/DL (50-170); PERCENT SATURATION 32.6 % (13.2-45.0); POTASSIUM SERUM 3.6 MEQ/L (3.5-5.1); SODIUM LEVEL 138 MEQ/L (136-145); TOTAL IRON BINDING CAPACITY 218 UG/DL (250-450); TOTAL PROTEIN 6.7 GM/DL (6.4-8.2)
== END ==
LOC: SKLAB4 10:52
DX: I50.9 Heart failure, unspecified (principal); D64.9 Anemia, unspecified; Z16.12 Extended spectrum beta lactamase (ESBL) resistance; Z51.81 Encounter for therapeutic drug level monitoring; Z79.899 Other long term (current) drug therapy
CPT/HCPCS: 83550

== ENCOUNTER → 2017-06-01 | Outpatient (REF) | payer MEDICARE, MEDICAID | LOC: SKLAB4 15:09 | DX: Z16.12 Extended spectrum beta lactamase (ESBL) resistance (principal); Z79.899 Other long term (current) drug therapy | CPT/HCPCS: 87086 ==

== ENCOUNTER → 2017-06-02 | Outpatient (REF) | payer MEDICARE, MEDICAID | LOC: SKLAB4 09:36 | DX: Z16.12 Extended spectrum beta lactamase (ESBL) resistance (principal); Z79.899 Other long term (current) drug therapy | CPT/HCPCS: 87086 ==

== ENCOUNTER → 2017-06-06 | Outpatient (REF) | payer MEDICARE, MEDICAID ==
[2017-06-06 21:22] LABS: PHENYTOIN (DILANTIN) 12.7 UG/ML (10.0-20.0)
== END ==
LOC: SKLAB4 20:54
DX: R56.9 Unspecified convulsions (principal); Z51.81 Encounter for therapeutic drug level monitoring
CPT/HCPCS: 80185

== ENCOUNTER → 2017-06-08 | Outpatient (REF) | payer MEDICARE, MEDICAID ==
[2017-06-08 11:52] LABS: ALBUMIN 3.6 GM/DL (3.2-5.2)
[2017-06-08 11:52] LABS: PHENYTOIN (DILANTIN) 10.8 UG/ML (10.0-20.0)
== END ==
LOC: SKLAB4 09:50
DX: R56.9 Unspecified convulsions (principal)
CPT/HCPCS: 82040

== ENCOUNTER → 2017-06-10 | Outpatient (REF) | payer MEDICARE, MEDICAID | LOC: M RAD 18:18 | DX: M54.2 Cervicalgia (principal); M25.511 Pain in right shoulder; W19.XXXA Unspecified fall, initial encounter; M19.011 Primary osteoarthritis, right shoulder; M85.80 Other specified disorders of bone density and structure, unspecified site | CPT/HCPCS: 72052 ==

== ENCOUNTER → 2017-06-22 | Outpatient (REF) | payer MEDICARE, MEDICAID ==
[2017-06-22 09:59] LABS: HEMATOCRIT 29.1 % (36.0-47.0); HEMOGLOBIN 9.5 g/dl (12.0-16.0); MEAN CORPUSCULAR HEMOGLOBIN 29.7 pg (27.0-33.0); MEAN CORPUSCULAR HGB CONC 32.6 g/dl (32.0-36.5); MEAN CORPUSCULAR VOLUME 90.9 fl (80.0-96.0); PLATELET COUNT, AUTOMATED 376 10^3/uL (150-450); RED CELL DISTRIBUTION WIDTH 13.2 % (11.5-14.5); WHITE BLOOD COUNT 5.6 10^3/uL (4.0-10.0)
== END ==
LOC: SKLAB4 09:25
DX: D64.9 Anemia, unspecified (principal)
CPT/HCPCS: 85027

== ENCOUNTER → 2017-06-30 | Outpatient (REF) | payer MEDICARE, MEDICAID ==
[2017-06-30 07:48] LABS: PHENYTOIN (DILANTIN) 4.2 UG/ML (10.0-20.0)
== END ==
LOC: SKLAB4 07:31
DX: R56.9 Unspecified convulsions (principal)
CPT/HCPCS: 80185

== ENCOUNTER → 2017-07-07 | Outpatient (REF) | payer MEDICARE, MEDICAID ==
[2017-07-07 10:25] LABS: ESTIMATED AVERAGE GLUCOSE 180 MG/DL (60-110); HEMOGLOBIN A1c 7.9 %
== END ==
LOC: SKLAB4 07:09
DX: E11.9 Type 2 diabetes mellitus without complications (principal)
CPT/HCPCS: 83036

== ENCOUNTER → 2017-07-17 | Outpatient (CLI) | payer MEDICARE, MEDICAID | LOC: M RAD 09:40 | DX: Z12.31 Encounter for screening mammogram for malignant neoplasm of breast (principal); Z85.3 Personal history of malignant neoplasm of breast; Z90.12 Acquired absence of left breast and nipple | CPT/HCPCS: 77067 ==

== ENCOUNTER → 2017-08-18 | Outpatient (REF) | payer MEDICARE, MEDICAID ==
[2017-08-18 10:44] LABS: NT-PRO BNP 2238 PG/ML (<125)
== END ==
LOC: SKLAB4 07:21
DX: R06.02 Shortness of breath (principal)
CPT/HCPCS: 36415

== ENCOUNTER 2017-08-24 09:26 | Outpatient (REF) | payer MEDICARE, MEDICAID ==
[2017-08-25 08:05] LABS: BASO % 0.4 % (0.0-1.0); EOS # 0.2 10^3/uL (0.0-0.50); EOS % 3.1 % (0.0-3.0); HEMATOCRIT 23.5 % (36.0-47.0); HEMOGLOBIN 7.4 g/dl (12.0-15.5); IMMATURE GRANULOCYTE % 1.2 % (0-3.0); LYMPH # 1.3 10^3/uL (1.5-4.5); LYMPH % 17.3 % (24.0-44.0); MEAN CORPUSCULAR HEMOGLOBIN 29.5 pg (27.0-33.0); MEAN CORPUSCULAR HGB CONC 31.5 g/dl (32.0-36.5); MEAN CORPUSCULAR VOLUME 93.6 fl (80.0-96.0); MONO # 0.9 10^3/uL (0.0-0.8); MONO % 11.7 % (0.0-5.0); NEUTROPHILS # 4.9 10^3/uL (1.8-7.7); NEUTROPHILS % 66.3 % (36.0-66.0); PLATELET COUNT, AUTOMATED 376 10^3/uL (150-450); RED BLOOD COUNT 2.51 10^6/uL (4.00-5.40); RED CELL DISTRIBUTION WIDTH 13.5 % (11.5-14.5); WHITE BLOOD COUNT 7.4 10^3/uL (4.0-10.0)
[2017-08-25 08:49] LABS: ALBUMIN 3.2 GM/DL (3.2-5.2); ALBUMIN/GLOBULIN RATIO 0.94 (1.00-1.93); ALKALINE PHOSPHATASE 118 U/L (45-117); ALT/SGPT 21 U/L (12-78); ANION GAP 7 MEQ/L (8-16); ANION GAP 8 MEQ/L (8-16); AST/SGOT 7 U/L (7-37); BILIRUBIN,TOTAL 0.1 MG/DL (0.2-1.0); BLOOD UREA NITROGEN 38 MG/DL (7-18); CALCIUM LEVEL 8.2 MG/DL (8.8-10.2); CALCIUM LEVEL 8.3 MG/DL (8.8-10.2); CARBON DIOXIDE LEVEL 32 MEQ/L (21-32); CARBON DIOXIDE LEVEL 33 MEQ/L (21-32); CHLORIDE LEVEL 101 MEQ/L (98-107); CHLORIDE LEVEL 99 MEQ/L (98-107); CREATININE FOR GFR 0.73 MG/DL (0.55-1.30); CREATININE FOR GFR 0.74 MG/DL (0.55-1.30); GLOMERULAR FILTRATION RATE > 60.0 (>45); GLUCOSE, FASTING 121 MG/DL (70-100); GLUCOSE, FASTING 125 MG/DL (70-100); IRON (FE) 66 UG/DL (50-170); NT-PRO BNP 1682 PG/ML (<125); PERCENT SATURATION 26.2 % (13.2-45.0); POTASSIUM SERUM 4.3 MEQ/L (3.5-5.1); POTASSIUM SERUM 4.4 MEQ/L (3.5-5.1); SODIUM LEVEL 139 MEQ/L (136-145); SODIUM LEVEL 141 MEQ/L (136-145); TOTAL IRON BINDING CAPACITY 252 UG/DL (250-450); TOTAL PROTEIN 6.6 GM/DL (6.4-8.2)
[2017-08-25 09:34] LABS: ESTIMATED AVERAGE GLUCOSE 243 MG/DL (60-110); HEMOGLOBIN A1c 10.1 %
== END 2017-08-25 ==
LOC: SKLAB4 09:26
DX: D64.9 Anemia, unspecified (principal); E11.9 Type 2 diabetes mellitus without complications
CPT/HCPCS: 80185

== ENCOUNTER 2017-08-26 12:01 | Outpatient (CLI) | payer MEDICARE, MEDICAID ==
[2017-08-26] MEDS ORDERED: FUROSEMIDE 20 MG/2 ML VIAL (J1940) IV ×2 (12:30)
== END 2017-08-26 22:02 | disposition home or self-care (01) ==
LOC: M OPCLI5PR 22:02 → M MS5PR 12:04
DX: D64.9 Anemia, unspecified (principal)
CPT/HCPCS: 36415; 85027

== ENCOUNTER → 2017-08-26 | Outpatient (REF) | payer MEDICARE, MEDICAID ==
[2017-08-26 07:38] LABS: HEMATOCRIT 23.8 % (36.0-47.0); HEMOGLOBIN 7.5 g/dl (12.0-15.5); MEAN CORPUSCULAR HEMOGLOBIN 29.5 pg (27.0-33.0); MEAN CORPUSCULAR HGB CONC 31.5 g/dl (32.0-36.5); MEAN CORPUSCULAR VOLUME 93.7 fl (80.0-96.0); PLATELET COUNT, AUTOMATED 344 10^3/uL (150-450); RED BLOOD COUNT 2.54 10^6/uL (4.00-5.40); RED CELL DISTRIBUTION WIDTH 13.7 % (11.5-14.5); WHITE BLOOD COUNT 8.2 10^3/uL (4.0-10.0)
== END ==
LOC: SKLAB2 07:00
DX: I50.9 Heart failure, unspecified (principal)
CPT/HCPCS: 85027

== ENCOUNTER → 2017-08-26 | Outpatient (REF) | payer MEDICARE, MEDICAID | LOC: SKLAB2 10:26 | DX: D64.9 Anemia, unspecified (principal) ==

== ENCOUNTER 2017-08-27 09:32 | Observation (INO) | payer MEDICARE, MEDICAID ==
[2017-08-27 11:38] LABS: HEMOGLOBIN 7.6 g/dl (12.0-15.5); MEAN CORPUSCULAR HEMOGLOBIN 29.8 pg (27.0-33.0); MEAN CORPUSCULAR HGB CONC 31.7 g/dl (32.0-36.5); MEAN CORPUSCULAR VOLUME 94.1 fl (80.0-96.0); PLATELET COUNT, AUTOMATED 384 10^3/uL (150-450); RED BLOOD COUNT 2.55 10^6/uL (4.00-5.40); RED CELL DISTRIBUTION WIDTH 13.9 % (11.5-14.5); WHITE BLOOD COUNT 9.5 10^3/uL (4.0-10.0)
[2017-08-27 11:53] LABS: ANION GAP 8 MEQ/L (8-16); BLOOD UREA NITROGEN 35 MG/DL (7-18); CALCIUM LEVEL 8.5 MG/DL (8.8-10.2); CARBON DIOXIDE LEVEL 31 MEQ/L (21-32); CHLORIDE LEVEL 102 MEQ/L (98-107); CREATININE FOR GFR 0.84 MG/DL (0.55-1.30); GLOMERULAR FILTRATION RATE > 60.0 (>45); GLUCOSE, FASTING 257 MG/DL (70-100); POTASSIUM SERUM 5.1 MEQ/L (3.5-5.1); SODIUM LEVEL 141 MEQ/L (136-145)
[2017-08-27 12:43] LABS: INR 1.07
[2017-08-27 12:44] LABS: PARTIAL THROMBOPLASTIN TIME 26.5 SECONDS (26.8-37.9)
[2017-08-27] MEDS ORDERED: ISOVUE-300 61% 50ML VIAL (Q9967) As Ordered (15:55)
[2017-08-27] MEDS ORDERED: LIDOCAINE 2% MDV 20 ML VIAL As Ordered (16:10)
[2017-08-27] MEDS ORDERED: ceFAZolin 1GM INJ (J0690 PER 500MG) As Ordered (16:11)
[2017-08-27] MEDS ORDERED: ACETAMINOPHEN TAB 650MG DOSE (2X325MG) PO (18:30)
[2017-08-27] MEDS ORDERED: ONDANSETRON 4MG/2ML VIAL (J2405) IV (18:30)
[2017-08-27 18:49] LABS: RETIC HEMOGLOBIN EQUIVALENT 29.3 pg (24-36); RETICULOCYTE # 77.5 10^9/L (17-77)
[2017-08-27] MEDS: SODIUM CHLORIDE 0.9% INJ 10 ML SYR IV (18:59)
[2017-08-27] MEDS ORDERED: GLUCAGON FOR INJ 1 MG VIAL (J1610) SC (19:00)
[2017-08-27] MEDS ORDERED: DEXTROSE 50% 50 ML SYRINGE IV (19:00)
[2017-08-27] MEDS ORDERED: GLUCOSE 4 GM CHEW TABLET PO (19:00)
[2017-08-27 19:06] LABS: FERRITIN 110 NG/ML (8-252)
[2017-08-27 19:19] LABS: FOLATE 18.5 NG/ML; VITAMIN B12 LEVEL 835 PG/ML
[2017-08-27 20:32] LABS: PHENYTOIN (DILANTIN) 10.6 UG/ML (10.0-20.0)
[2017-08-27] MEDS: HumaLOG INSULIN (NovoLOG) PER UNIT SC (21:00)
[2017-08-27 21:02] LABS: BEDSIDE GLUCOSE 221 MG/DL (80-115)
[2017-08-27] MEDS: METOPROLOL TARTRATE 100 MG TAB PO ×2 (21:18→23:59)
[2017-08-27] MEDS: TORSEMIDE 20 MG TAB PO (21:18)
[2017-08-27] MEDS: VALSARTAN 80 MG TAB (DIOVAN) PO (21:19)
[2017-08-27] MEDS: GABAPENTIN 100 MG CAP PO (21:19)
[2017-08-27] MEDS: ROSUVASTATIN 10 MG TAB (CRESTOR) PO (21:19)
[2017-08-27] MEDS: amLODIPine 5 MG TAB PO (21:19)
[2017-08-27] MEDS: **hydrALAZINE** 50 MG TAB PO (21:19)
[2017-08-27] MEDS: FERROUS SULFATE 325MG TAB PO (21:19)
[2017-08-27] MEDS: LEVEMIR (INSULIN DETEMIR) 1 UNITS/0.01ML SC (21:19)
[2017-08-27] MEDS: BRIMONIDINE 0.15% OPHTH SOLN 5 ML OU (21:20)
[2017-08-27] MEDS: LATANOPROST 0.005% OPHTH SOLN 2.5 ML OU (21:20)
[2017-08-27] MEDS: SYMBICORT 160/4.5MCG INHALER 6GM INH (23:18)
[2017-08-28 02:25] LABS: IMMEDIATE SPIN CROSSMATCH 1 2
[2017-08-28] MEDS ORDERED: METAL LOCK LOOP XX (02:26)
[2017-08-28] MEDS: METOPROLOL TARTRATE 100 MG TAB PO ×2 (05:49→12:28)
[2017-08-28 07:42] LABS: BEDSIDE GLUCOSE 182 MG/DL (80-115)
[2017-08-28] MEDS: SYMBICORT 160/4.5MCG INHALER 6GM INH (08:13)
[2017-08-28] MEDS: LEVEMIR (INSULIN DETEMIR) 1 UNITS/0.01ML SC (08:30)
[2017-08-28] MEDS: HumaLOG INSULIN (NovoLOG) PER UNIT SC ×2 (08:30→12:00)
[2017-08-28] MEDS: PANTOPRAZOLE 40MG TAB (PROTONIX) PO (08:31)
[2017-08-28] MEDS: **hydrALAZINE** 50 MG TAB PO (08:31)
[2017-08-28] MEDS: TORSEMIDE 20 MG TAB PO (08:31)
[2017-08-28] MEDS: CLOPIDOGREL 75 MG TAB PO (08:31)
[2017-08-28] MEDS: GABAPENTIN 100 MG CAP PO (08:31)
[2017-08-28] MEDS: FERROUS SULFATE 325MG TAB PO (08:31)
[2017-08-28] MEDS: MOM 30ML SUSPENSION UDC PO (08:31)
[2017-08-28] MEDS: PRENATAL VITAMINS CHEWABLE TABLET PO (08:31)
[2017-08-28] MEDS: predniSONE 10 MG TAB PO (08:32)
[2017-08-28] MEDS: SENNA 8.6 MG TAB (SENOKOT) PO (08:32)
[2017-08-28] MEDS: PHENYTOIN ER 100 MG CAP PO (08:32)
[2017-08-28] MEDS: ASPIRIN 325 MG TAB PO (08:32)
[2017-08-28] MEDS: DOCUSATE SODIUM 100 MG CAP PO (08:32)
[2017-08-28] MEDS: amLODIPine 5 MG TAB PO (08:33)
[2017-08-28] MEDS: BRIMONIDINE 0.15% OPHTH SOLN 5 ML OU (08:33)
[2017-08-28 08:54] LABS: HEMATOCRIT 28.1 % (36.0-47.0); HEMOGLOBIN 9.1 g/dl (12.0-15.5); MEAN CORPUSCULAR HEMOGLOBIN 29.5 pg (27.0-33.0); MEAN CORPUSCULAR HGB CONC 32.4 g/dl (32.0-36.5); MEAN CORPUSCULAR VOLUME 91.2 fl (80.0-96.0); PLATELET COUNT, AUTOMATED 310 10^3/uL (150-450); RED BLOOD COUNT 3.08 10^6/uL (4.00-5.40); RED CELL DISTRIBUTION WIDTH 14.6 % (11.5-14.5); WHITE BLOOD COUNT 9.9 10^3/uL (4.0-10.0)
[2017-08-28 09:26] LABS: ANION GAP 10 MEQ/L (8-16); BLOOD UREA NITROGEN 25 MG/DL (7-18); CALCIUM LEVEL 7.9 MG/DL (8.8-10.2); CARBON DIOXIDE LEVEL 29 MEQ/L (21-32); CHLORIDE LEVEL 105 MEQ/L (98-107); CREATININE FOR GFR 0.67 MG/DL (0.55-1.30); FERRITIN 79 NG/ML (8-252); GLOMERULAR FILTRATION RATE > 60.0 (>45); GLUCOSE, FASTING 209 MG/DL (70-100); IRON (FE) 104 UG/DL (50-170); MAGNESIUM LEVEL 2.5 MG/DL (1.8-2.4); PERCENT SATURATION 47.7 % (13.2-45.0); POTASSIUM SERUM 3.8 MEQ/L (3.5-5.1); SODIUM LEVEL 144 MEQ/L (136-145); TOTAL IRON BINDING CAPACITY 218 UG/DL (250-450)
[2017-08-28 10:48] LABS: REASON FOR REVIEW ANEMIA / RBC MORPH; SLIDE REVIEW Report; SOURCE PERIPHERAL SMEAR
== END 2017-08-28 12:15 ==
LOC: M ED 09:32 → M ED INP 18:23
DX: D64.9 Anemia, unspecified (principal); G40.909 Epilepsy, unspecified, not intractable, without status epilepticus; I11.0 Hypertensive heart disease with heart failure; J44.9 Chronic obstructive pulmonary disease, unspecified; E11.40 Type 2 diabetes mellitus with diabetic neuropathy, unspecified; I69.354 Hemiplegia and hemiparesis following cerebral infarction affecting left non-dominant side; Z85.3 Personal history of malignant neoplasm of breast; H40.9 Unspecified glaucoma; I25.10 Atherosclerotic heart disease of native coronary artery without angina pectoris; I50.30 Unspecified diastolic (congestive) heart failure; E78.5 Hyperlipidemia, unspecified; K57.30 Diverticulosis of large intestine without perforation or abscess without bleeding; G47.33 Obstructive sleep apnea (adult) (pediatric); D86.9 Sarcoidosis, unspecified; Z87.891 Personal history of nicotine dependence; Z79.899 Other long term (current) drug therapy; Z79.82 Long term (current) use of aspirin; Z79.02 Long term (current) use of antithrombotics/antiplatelets; Z79.4 Long term (current) use of insulin; Z79.52 Long term (current) use of systemic steroids; Z88.8 Allergy status to other drugs, medicaments and biological substances; Z88.1 Allergy status to other antibiotic agents; Z88.2 Allergy status to sulfonamides; Z88.5 Allergy status to narcotic agent; I65.29 Occlusion and stenosis of unspecified carotid artery; T85.9XXA Unspecified complication of internal prosthetic device, implant and graft, initial encounter; Y82.8 Other medical devices associated with adverse incidents
CPT/HCPCS: 36582

== ENCOUNTER 2017-09-01 14:22 | Emergency (ER) | payer MEDICARE, MEDICAID ==
[2017-09-01 17:28] LABS: BASO % 0.4 % (0.0-1.0); EOS # 0.2 10^3/uL (0.0-0.50); EOS % 2.6 % (0.0-3.0); HEMATOCRIT 29.5 % (36.0-47.0); HEMOGLOBIN 9.4 g/dl (12.0-15.5); IMMATURE GRANULOCYTE % 0.5 % (0-3.0); LYMPH # 1.2 10^3/uL (1.5-4.5); LYMPH % 14.9 % (24.0-44.0); MEAN CORPUSCULAR HEMOGLOBIN 29.5 pg (27.0-33.0); MEAN CORPUSCULAR HGB CONC 31.9 g/dl (32.0-36.5); MEAN CORPUSCULAR VOLUME 92.5 fl (80.0-96.0); MONO % 12.9 % (0.0-5.0); NEUTROPHILS # 5.6 10^3/uL (1.8-7.7); NEUTROPHILS % 68.7 % (36.0-66.0); PLATELET COUNT, AUTOMATED 341 10^3/uL (150-450); RED BLOOD COUNT 3.19 10^6/uL (4.00-5.40); RED CELL DISTRIBUTION WIDTH 13.9 % (11.5-14.5); WHITE BLOOD COUNT 8.1 10^3/uL (4.0-10.0)
[2017-09-01 17:39] LABS: INR 1.09; PARTIAL THROMBOPLASTIN TIME 26.6 SECONDS (26.8-37.9); PROTHROMBIN TIME 14.3 SECONDS (12.4-14.5)
[2017-09-01 18:02] LABS: PHENYTOIN (DILANTIN) 16.6 UG/ML (10.0-20.0)
[2017-09-01 18:03] LABS: ALBUMIN 3.2 GM/DL (3.2-5.2); ALBUMIN/GLOBULIN RATIO 0.94 (1.00-1.93); ALKALINE PHOSPHATASE 117 U/L (45-117); ALT/SGPT 25 U/L (12-78); ANION GAP 5 MEQ/L (8-16); AST/SGOT 13 U/L (7-37); BILIRUBIN,DIRECT < 0.1 MG/DL (0.0-0.2); BILIRUBIN,TOTAL 0.2 MG/DL (0.2-1.0); BLOOD UREA NITROGEN 36 MG/DL (7-18); CALCIUM LEVEL 8.1 MG/DL (8.8-10.2); CARBON DIOXIDE LEVEL 31 MEQ/L (21-32); CHLORIDE LEVEL 100 MEQ/L (98-107); CPK CREATINE PHOSPHOKINASE 98 U/L (26-192); CREATININE FOR GFR 0.88 MG/DL (0.55-1.30); GLOMERULAR FILTRATION RATE > 60.0 (>45); GLUCOSE, FASTING 185 MG/DL (70-100); MAGNESIUM LEVEL 2.2 MG/DL (1.8-2.4); POTASSIUM SERUM 4.7 MEQ/L (3.5-5.1); SODIUM LEVEL 136 MEQ/L (136-145); TOTAL PROTEIN 6.6 GM/DL (6.4-8.2)
[2017-09-01 18:08] LABS: PROLACTIN 5.9 NG/ML
== END 2017-09-01 19:31 | disposition home or self-care (01) ==
LOC: M ED 14:22
DX: G40.909 Epilepsy, unspecified, not intractable, without status epilepticus (principal); I11.0 Hypertensive heart disease with heart failure; I50.9 Heart failure, unspecified; N18.1 Chronic kidney disease, stage 1; J45.909 Unspecified asthma, uncomplicated; E03.9 Hypothyroidism, unspecified; E78.5 Hyperlipidemia, unspecified; G62.9 Polyneuropathy, unspecified; K21.9 Gastro-esophageal reflux disease without esophagitis; G93.41 Metabolic encephalopathy; G43.909 Migraine, unspecified, not intractable, without status migrainosus; D86.9 Sarcoidosis, unspecified; M81.0 Age-related osteoporosis without current pathological fracture; Z79.899 Other long term (current) drug therapy; Z79.82 Long term (current) use of aspirin; Z79.4 Long term (current) use of insulin; Z88.1 Allergy status to other antibiotic agents; Z88.2 Allergy status to sulfonamides; Z88.5 Allergy status to narcotic agent; Z88.8 Allergy status to other drugs, medicaments and biological substances
CPT/HCPCS: 82550

== ENCOUNTER → 2017-09-01 | Outpatient (REF) | payer MEDICARE, MEDICAID ==
[2017-09-01 10:48] LABS: ANION GAP 9 MEQ/L (8-16); BLOOD UREA NITROGEN 34 MG/DL (7-18); CALCIUM LEVEL 8.5 MG/DL (8.8-10.2); CARBON DIOXIDE LEVEL 31 MEQ/L (21-32); CHLORIDE LEVEL 98 MEQ/L (98-107); CREATININE FOR GFR 0.87 MG/DL (0.55-1.30); GLOMERULAR FILTRATION RATE > 60.0 (>45); GLUCOSE, FASTING 235 MG/DL (70-100); POTASSIUM SERUM 4.5 MEQ/L (3.5-5.1); SODIUM LEVEL 138 MEQ/L (136-145)
== END ==
LOC: SKLAB2 07:00
DX: R56.9 Unspecified convulsions (principal); D64.9 Anemia, unspecified
CPT/HCPCS: 80048

== ENCOUNTER → 2017-09-07 | Outpatient (REF) | payer MEDICARE, MEDICAID ==
[2017-09-07 09:35] LABS: ANION GAP 7 MEQ/L (8-16); BLOOD UREA NITROGEN 58 MG/DL (7-18); CALCIUM LEVEL 8.1 MG/DL (8.8-10.2); CARBON DIOXIDE LEVEL 32 MEQ/L (21-32); CHLORIDE LEVEL 102 MEQ/L (98-107); CREATININE FOR GFR 0.96 MG/DL (0.55-1.30); GLOMERULAR FILTRATION RATE > 60.0 (>45); GLUCOSE, FASTING 210 MG/DL (70-100); POTASSIUM SERUM 3.9 MEQ/L (3.5-5.1); SODIUM LEVEL 141 MEQ/L (136-145)
== END ==
LOC: SKLAB2 08:00
DX: I50.9 Heart failure, unspecified (principal)
CPT/HCPCS: 80048

== ENCOUNTER → 2017-09-14 | Outpatient (REF) | payer MEDICARE, MEDICAID ==
[2017-09-14 09:13] LABS: ANION GAP 7 MEQ/L (8-16); BLOOD UREA NITROGEN 70 MG/DL (7-18); CALCIUM LEVEL 8.5 MG/DL (8.8-10.2); CARBON DIOXIDE LEVEL 34 MEQ/L (21-32); CHLORIDE LEVEL 98 MEQ/L (98-107); CREATININE FOR GFR 1.07 MG/DL (0.55-1.30); GLOMERULAR FILTRATION RATE > 60.0 (>45); GLUCOSE, FASTING 181 MG/DL (70-100); POTASSIUM SERUM 4.2 MEQ/L (3.5-5.1); SODIUM LEVEL 139 MEQ/L (136-145)
== END ==
LOC: SKLAB2 07:30
DX: I50.9 Heart failure, unspecified (principal)
CPT/HCPCS: 36415

== ENCOUNTER → 2017-09-21 | Outpatient (REF) | payer MEDICARE, MEDICAID ==
[2017-09-21 12:55] LABS: ANION GAP 10 MEQ/L (8-16); BLOOD UREA NITROGEN 59 MG/DL (7-18); CALCIUM LEVEL 8.2 MG/DL (8.8-10.2); CARBON DIOXIDE LEVEL 29 MEQ/L (21-32); CHLORIDE LEVEL 99 MEQ/L (98-107); CREATININE FOR GFR 1.07 MG/DL (0.55-1.30); GLOMERULAR FILTRATION RATE > 60.0 (>45); GLUCOSE, FASTING 220 MG/DL (70-100); POTASSIUM SERUM 4.5 MEQ/L (3.5-5.1); SODIUM LEVEL 138 MEQ/L (136-145)
== END ==
LOC: SKLAB2 11:11
DX: I50.9 Heart failure, unspecified (principal)
CPT/HCPCS: 80048

== ENCOUNTER 2017-09-23 16:51 | Outpatient (CLI) | payer MEDICARE, MEDICAID ==
[2017-09-23] MEDS: SODIUM CHLORIDE 0.9% INJ 10 ML SYR IV (21:35)
[2017-09-24] MEDS ORDERED: SODIUM CHLORIDE 0.9% INJ 10 ML SYR IV (09:00)
[2017-09-26 17:24] LABS: IMMEDIATE SPIN CROSSMATCH 1 2
== END 2017-09-23 23:27 ==
LOC: M OPCLI4PV 16:51 → M MSPAV 17:51 → M OPCLI4PV 23:27
DX: D64.9 Anemia, unspecified (principal); R06.02 Shortness of breath; R09.89 Other specified symptoms and signs involving the circulatory and respiratory systems
CPT/HCPCS: 36591

== ENCOUNTER → 2017-09-23 | Outpatient (REF) | payer MEDICARE, MEDICAID | LOC: SKLAB2 14:28 | DX: Z53.9 Procedure and treatment not carried out, unspecified reason (principal) ==

== ENCOUNTER → 2017-09-23 | Outpatient (REF) | payer MEDICARE, MEDICAID ==
[2017-09-23 12:56] LABS: HEMATOCRIT 22.7 % (36.0-47.0); HEMOGLOBIN 7.2 g/dl (12.0-15.5); MEAN CORPUSCULAR HEMOGLOBIN 29.8 pg (27.0-33.0); MEAN CORPUSCULAR HGB CONC 31.7 g/dl (32.0-36.5); MEAN CORPUSCULAR VOLUME 93.8 fl (80.0-96.0); PLATELET COUNT, AUTOMATED 332 10^3/uL (150-450); RED BLOOD COUNT 2.42 10^6/uL (4.00-5.40); RED CELL DISTRIBUTION WIDTH 14.6 % (11.5-14.5); WHITE BLOOD COUNT 8.2 10^3/uL (4.0-10.0)
[2017-09-23 13:36] LABS: ANION GAP 10 MEQ/L (8-16); BLOOD UREA NITROGEN 46 MG/DL (7-18); CALCIUM LEVEL 8.2 MG/DL (8.8-10.2); CARBON DIOXIDE LEVEL 31 MEQ/L (21-32); CHLORIDE LEVEL 103 MEQ/L (98-107); CREATININE FOR GFR 0.93 MG/DL (0.55-1.30); GLOMERULAR FILTRATION RATE > 60.0 (>45); GLUCOSE, FASTING 268 MG/DL (70-100); POTASSIUM SERUM 4.9 MEQ/L (3.5-5.1); SODIUM LEVEL 144 MEQ/L (136-145)
== END ==
LOC: SKLAB2 12:14
DX: R06.02 Shortness of breath (principal); R09.89 Other specified symptoms and signs involving the circulatory and respiratory systems
CPT/HCPCS: 71045

== ENCOUNTER → 2017-09-24 | Outpatient (REF) | payer MEDICARE, MEDICAID ==
[2017-09-24 12:41] LABS: HEMATOCRIT 24.4 % (36.0-47.0); HEMOGLOBIN 7.6 g/dl (12.0-15.5); MEAN CORPUSCULAR HEMOGLOBIN 29.3 pg (27.0-33.0); MEAN CORPUSCULAR HGB CONC 31.1 g/dl (32.0-36.5); MEAN CORPUSCULAR VOLUME 94.2 fl (80.0-96.0); PLATELET COUNT, AUTOMATED 357 10^3/uL (150-450); RED BLOOD COUNT 2.59 10^6/uL (4.00-5.40); WHITE BLOOD COUNT 8.8 10^3/uL (4.0-10.0)
== END ==
LOC: SKLAB2 11:34
DX: D64.9 Anemia, unspecified (principal)
CPT/HCPCS: 85027

== ENCOUNTER 2017-09-26 13:57 | Outpatient (CLI) | payer MEDICARE, MEDICAID ==
[2017-09-26] MEDS: SODIUM CHLORIDE 0.9% INJ 10 ML SYR IV (20:21)
== END 2017-09-26 22:09 ==
LOC: M OPCLI4PV 13:57 → M MSPAV 14:19 → M OPCLI4PV 22:09
DX: D64.9 Anemia, unspecified (principal)
CPT/HCPCS: 36430

== ENCOUNTER → 2017-09-26 | Outpatient (REF) | payer MEDICARE, MEDICAID ==
[2017-09-26 10:21] LABS: HEMATOCRIT 25.8 % (36.0-47.0); HEMOGLOBIN 8.1 g/dl (12.0-15.5); MEAN CORPUSCULAR HGB CONC 31.4 g/dl (32.0-36.5); MEAN CORPUSCULAR VOLUME 95.6 fl (80.0-96.0); PLATELET COUNT, AUTOMATED 382 10^3/uL (150-450); RED CELL DISTRIBUTION WIDTH 15.3 % (11.5-14.5); WHITE BLOOD COUNT 6.8 10^3/uL (4.0-10.0)
== END ==
LOC: SKLAB2 07:00
DX: D64.9 Anemia, unspecified (principal)
CPT/HCPCS: 36415

== ENCOUNTER → 2017-09-27 | Outpatient (REF) | payer MEDICARE, MEDICAID ==
[2017-09-27 09:12] LABS: HEMATOCRIT 31.3 % (36.0-47.0); HEMOGLOBIN 10.1 g/dl (12.0-15.5); MEAN CORPUSCULAR HEMOGLOBIN 29.5 pg (27.0-33.0); MEAN CORPUSCULAR HGB CONC 32.3 g/dl (32.0-36.5); MEAN CORPUSCULAR VOLUME 91.5 fl (80.0-96.0); PLATELET COUNT, AUTOMATED 340 10^3/uL (150-450); RED BLOOD COUNT 3.42 10^6/uL (4.00-5.40); RED CELL DISTRIBUTION WIDTH 15.7 % (11.5-14.5); WHITE BLOOD COUNT 6.6 10^3/uL (4.0-10.0)
== END ==
LOC: SKLAB2 08:00
DX: D64.9 Anemia, unspecified (principal)
CPT/HCPCS: 36415

== ENCOUNTER → 2017-09-28 | Outpatient (REF) | payer MEDICARE, MEDICAID ==
[2017-09-28 08:28] LABS: HEMATOCRIT 32.4 % (36.0-47.0); HEMOGLOBIN 10.3 g/dl (12.0-15.5); MEAN CORPUSCULAR HEMOGLOBIN 29.3 pg (27.0-33.0); MEAN CORPUSCULAR HGB CONC 31.8 g/dl (32.0-36.5); MEAN CORPUSCULAR VOLUME 92.3 fl (80.0-96.0); PLATELET COUNT, AUTOMATED 337 10^3/uL (150-450); RED BLOOD COUNT 3.51 10^6/uL (4.00-5.40); RED CELL DISTRIBUTION WIDTH 15.5 % (11.5-14.5); WHITE BLOOD COUNT 7.3 10^3/uL (4.0-10.0)
[2017-09-28 08:51] LABS: ANION GAP 8 MEQ/L (8-16); BLOOD UREA NITROGEN 28 MG/DL (7-18); CALCIUM LEVEL 8.5 MG/DL (8.8-10.2); CARBON DIOXIDE LEVEL 32 MEQ/L (21-32); CHLORIDE LEVEL 105 MEQ/L (98-107); CREATININE FOR GFR 0.73 MG/DL (0.55-1.30); GLOMERULAR FILTRATION RATE > 60.0 (>45); GLUCOSE, FASTING 78 MG/DL (70-100); SODIUM LEVEL 145 MEQ/L (136-145)
== END ==
LOC: SKLAB2 07:00
DX: I50.9 Heart failure, unspecified (principal)
CPT/HCPCS: 36415

== ENCOUNTER → 2017-10-05 | Outpatient (REF) | payer MEDICARE, MEDICAID ==
[2017-10-05 09:04] LABS: ANION GAP 8 MEQ/L (8-16); BLOOD UREA NITROGEN 32 MG/DL (7-18); CALCIUM LEVEL 8.4 MG/DL (8.8-10.2); CARBON DIOXIDE LEVEL 33 MEQ/L (21-32); CHLORIDE LEVEL 102 MEQ/L (98-107); GLOMERULAR FILTRATION RATE > 60.0 (>45); GLUCOSE, FASTING 156 MG/DL (70-100); POTASSIUM SERUM 4.1 MEQ/L (3.5-5.1); SODIUM LEVEL 143 MEQ/L (136-145)
== END ==
LOC: SKLAB2 07:00
DX: I50.9 Heart failure, unspecified (principal)
CPT/HCPCS: 36415

== ENCOUNTER → 2017-10-12 | Outpatient (REF) | payer MEDICARE, MEDICAID ==
[2017-10-12 09:07] LABS: ANION GAP 5 MEQ/L (8-16); BLOOD UREA NITROGEN 51 MG/DL (7-18); CALCIUM LEVEL 8.3 MG/DL (8.8-10.2); CARBON DIOXIDE LEVEL 34 MEQ/L (21-32); CHLORIDE LEVEL 101 MEQ/L (98-107); CREATININE FOR GFR 0.81 MG/DL (0.55-1.30); GLOMERULAR FILTRATION RATE > 60.0 (>45); GLUCOSE, FASTING 171 MG/DL (70-100); POTASSIUM SERUM 4.1 MEQ/L (3.5-5.1); SODIUM LEVEL 140 MEQ/L (136-145)
== END ==
LOC: SKLAB2 07:00
DX: I50.9 Heart failure, unspecified (principal)
CPT/HCPCS: 36415

== ENCOUNTER → 2017-10-19 | Outpatient (REF) | payer MEDICARE, MEDICAID ==
[2017-10-19 10:08] LABS: ANION GAP 6 MEQ/L (8-16); BLOOD UREA NITROGEN 45 MG/DL (7-18); CALCIUM LEVEL 8.4 MG/DL (8.8-10.2); CARBON DIOXIDE LEVEL 36 MEQ/L (21-32); CHLORIDE LEVEL 101 MEQ/L (98-107); CREATININE FOR GFR 0.84 MG/DL (0.55-1.30); GLOMERULAR FILTRATION RATE > 60.0 (>45); GLUCOSE, FASTING 184 MG/DL (70-100); POTASSIUM SERUM 3.9 MEQ/L (3.5-5.1); SODIUM LEVEL 143 MEQ/L (136-145)
== END ==
LOC: SKLAB2 07:00
DX: I50.9 Heart failure, unspecified (principal)
CPT/HCPCS: 36415

== ENCOUNTER → 2017-10-26 | Outpatient (REF) | payer MEDICARE, MEDICAID ==
[2017-10-26 08:49] LABS: ANION GAP 9 MEQ/L (8-16); BLOOD UREA NITROGEN 60 MG/DL (7-18); CALCIUM LEVEL 8.1 MG/DL (8.8-10.2); CARBON DIOXIDE LEVEL 33 MEQ/L (21-32); CHLORIDE LEVEL 100 MEQ/L (98-107); CREATININE FOR GFR 1.05 MG/DL (0.55-1.30); GLOMERULAR FILTRATION RATE > 60.0 (>45); GLUCOSE, FASTING 97 MG/DL (70-100); SODIUM LEVEL 142 MEQ/L (136-145)
== END ==
LOC: SKLAB2 07:00
DX: I50.9 Heart failure, unspecified (principal)
CPT/HCPCS: 36415

== ENCOUNTER 2017-11-02 19:47 | Outpatient (CLI) | payer MEDICARE, MEDICAID | END 2017-11-06 | LOC: M SLEEP 19:47 | DX: G47.33 Obstructive sleep apnea (adult) (pediatric) (principal) | CPT/HCPCS: 95810 ==

== ENCOUNTER → 2017-11-02 | Outpatient (REF) | payer MEDICARE, MEDICAID ==
[2017-11-02 08:07] LABS: ANION GAP 7 MEQ/L (8-16); BLOOD UREA NITROGEN 56 MG/DL (7-18); CALCIUM LEVEL 8.1 MG/DL (8.8-10.2); CARBON DIOXIDE LEVEL 35 MEQ/L (21-32); CHLORIDE LEVEL 102 MEQ/L (98-107); GLOMERULAR FILTRATION RATE > 60.0 (>45); GLUCOSE, FASTING 180 MG/DL (70-100); POTASSIUM SERUM 4.1 MEQ/L (3.5-5.1); SODIUM LEVEL 144 MEQ/L (136-145)
== END ==
LOC: SKLAB2 11:38
DX: I50.9 Heart failure, unspecified (principal)
CPT/HCPCS: 36415

== ENCOUNTER → 2017-11-11 | Outpatient (REF) | payer MEDICARE, MEDICAID ==
[2017-11-11 07:59] LABS: ANION GAP 6 MEQ/L (8-16); BLOOD UREA NITROGEN 41 MG/DL (7-18); CALCIUM LEVEL 8.4 MG/DL (8.8-10.2); CARBON DIOXIDE LEVEL 36 MEQ/L (21-32); CHLORIDE LEVEL 101 MEQ/L (98-107); CREATININE FOR GFR 0.86 MG/DL (0.55-1.30); GLOMERULAR FILTRATION RATE > 60.0 (>45); GLUCOSE, FASTING 181 MG/DL (70-100); POTASSIUM SERUM 4.1 MEQ/L (3.5-5.1); SODIUM LEVEL 143 MEQ/L (136-145)
== END ==
LOC: SKLAB2 07:00
DX: I50.9 Heart failure, unspecified (principal)
CPT/HCPCS: 36415

== ENCOUNTER → 2017-11-16 | Outpatient (REF) | payer MEDICARE, MEDICAID ==
[2017-11-16 10:12] LABS: HEMATOCRIT 26.9 % (36.0-47.0); HEMOGLOBIN 8.4 g/dl (12.0-15.5); MEAN CORPUSCULAR HEMOGLOBIN 30.1 pg (27.0-33.0); MEAN CORPUSCULAR HGB CONC 31.2 g/dl (32.0-36.5); MEAN CORPUSCULAR VOLUME 96.4 fl (80.0-96.0); PLATELET COUNT, AUTOMATED 246 10^3/uL (150-450); RED BLOOD COUNT 2.79 10^6/uL (4.00-5.40); RED CELL DISTRIBUTION WIDTH 14.5 % (11.5-14.5); WHITE BLOOD COUNT 7.1 10^3/uL (4.0-10.0)
[2017-11-16 10:39] LABS: ALBUMIN 3.2 GM/DL (3.2-5.2); ALBUMIN/GLOBULIN RATIO 0.94 (1.00-1.93); ALKALINE PHOSPHATASE 107 U/L (45-117); ALT/SGPT 26 U/L (12-78); ANION GAP 9 MEQ/L (8-16); AST/SGOT 11 U/L (7-37); BILIRUBIN,TOTAL 0.1 MG/DL (0.2-1.0); BLOOD UREA NITROGEN 50 MG/DL (7-18); CARBON DIOXIDE LEVEL 31 MEQ/L (21-32); CHLORIDE LEVEL 98 MEQ/L (98-107); CREATININE FOR GFR 1.07 MG/DL (0.55-1.30); GLOMERULAR FILTRATION RATE > 60.0 (>45); GLUCOSE, FASTING 362 MG/DL (70-100); IRON (FE) 68 UG/DL (50-170); PERCENT SATURATION 32.5 % (13.2-45.0); POTASSIUM SERUM 4.4 MEQ/L (3.5-5.1); SODIUM LEVEL 138 MEQ/L (136-145); TOTAL IRON BINDING CAPACITY 209 UG/DL (250-450); TOTAL PROTEIN 6.6 GM/DL (6.4-8.2)
== END ==
LOC: SKLAB2 10:00
DX: I50.9 Heart failure, unspecified (principal); D64.9 Anemia, unspecified; E11.9 Type 2 diabetes mellitus without complications; I11.0 Hypertensive heart disease with heart failure
CPT/HCPCS: 83550

== ENCOUNTER → 2017-11-19 | Outpatient (REF) | payer MEDICARE, MEDICAID ==
[2017-11-19 19:02] LABS: HEMATOCRIT 28.9 % (36.0-47.0); HEMOGLOBIN 9.1 g/dl (12.0-15.5); MEAN CORPUSCULAR HEMOGLOBIN 30.2 pg (27.0-33.0); MEAN CORPUSCULAR HGB CONC 31.5 g/dl (32.0-36.5); PLATELET COUNT, AUTOMATED 266 10^3/uL (150-450); RED BLOOD COUNT 3.01 10^6/uL (4.00-5.40); RED CELL DISTRIBUTION WIDTH 14.3 % (11.5-14.5); WHITE BLOOD COUNT 7.6 10^3/uL (4.0-10.0)
[2017-11-19 19:28] LABS: ANION GAP 9 MEQ/L (8-16); BLOOD UREA NITROGEN 55 MG/DL (7-18); CARBON DIOXIDE LEVEL 28 MEQ/L (21-32); CHLORIDE LEVEL 101 MEQ/L (98-107); CREATININE FOR GFR 1.21 MG/DL (0.55-1.30); GLOMERULAR FILTRATION RATE 57.4 (>45); GLUCOSE, FASTING 252 MG/DL (70-100); NT-PRO BNP 2237 PG/ML (<125); SODIUM LEVEL 138 MEQ/L (136-145)
[2017-11-19 19:30] LABS: POTASSIUM SERUM 5.3 MEQ/L (3.5-5.1)
== END ==
LOC: SKLAB2 17:20
DX: R53.83 Other fatigue (principal)
CPT/HCPCS: 80048

== ENCOUNTER → 2017-12-02 | Outpatient (REF) | payer MEDICARE, MEDICAID | LOC: SKLAB2 13:54 | DX: R06.02 Shortness of breath (principal); R09.81 Nasal congestion | CPT/HCPCS: 71045 ==

== ENCOUNTER → 2017-12-03 | Outpatient (REF) | payer MEDICARE, MEDICAID ==
[2017-12-03 11:24] LABS: ANION GAP 9 MEQ/L (8-16); BLOOD UREA NITROGEN 58 MG/DL (7-18); CALCIUM LEVEL 8.4 MG/DL (8.8-10.2); CARBON DIOXIDE LEVEL 32 MEQ/L (21-32); CHLORIDE LEVEL 101 MEQ/L (98-107); CREATININE FOR GFR 1.12 MG/DL (0.55-1.30); GLOMERULAR FILTRATION RATE > 60.0 (>45); GLUCOSE, FASTING 262 MG/DL (70-100); POTASSIUM SERUM 4.3 MEQ/L (3.5-5.1); SODIUM LEVEL 142 MEQ/L (136-145)
== END ==
LOC: SKLAB2 07:04
DX: R09.81 Nasal congestion (principal)
CPT/HCPCS: 80048

== ENCOUNTER → 2017-12-04 | Outpatient (REF) | payer MEDICARE, MEDICAID ==
[2017-12-04 13:05] LABS: ANION GAP 13 MEQ/L (8-16); BLOOD UREA NITROGEN 62 MG/DL (7-18); CALCIUM LEVEL 8.2 MG/DL (8.8-10.2); CARBON DIOXIDE LEVEL 24 MEQ/L (21-32); CHLORIDE LEVEL 100 MEQ/L (98-107); CREATININE FOR GFR 1.11 MG/DL (0.55-1.30); GLOMERULAR FILTRATION RATE > 60.0 (>45); GLUCOSE, FASTING 383 MG/DL (70-100); POTASSIUM SERUM 4.7 MEQ/L (3.5-5.1); SODIUM LEVEL 137 MEQ/L (136-145)
== END ==
LOC: SKLAB2 08:46
DX: R09.81 Nasal congestion (principal)
CPT/HCPCS: 80048

== ENCOUNTER → 2017-12-12 | Outpatient (REF) | payer MEDICAID, MEDICARE ==
[2017-12-12 13:54] LABS: BASO % 0.4 % (0.0-1.0); EOS # 0.3 10^3/uL (0.0-0.50); EOS % 3.5 % (0.0-3.0); HEMATOCRIT 28.7 % (36.0-47.0); IMMATURE GRANULOCYTE % 0.4 % (0-3.0); LYMPH # 0.8 10^3/uL (1.5-4.5); LYMPH % 10.4 % (24.0-44.0); MEAN CORPUSCULAR HEMOGLOBIN 30.2 pg (27.0-33.0); MEAN CORPUSCULAR HGB CONC 31.4 g/dl (32.0-36.5); MEAN CORPUSCULAR VOLUME 96.3 fl (80.0-96.0); MONO # 0.8 10^3/uL (0.0-0.8); MONO % 10.1 % (0.0-5.0); NEUTROPHILS # 5.8 10^3/uL (1.8-7.7); NEUTROPHILS % 75.2 % (36.0-66.0); PLATELET COUNT, AUTOMATED 280 10^3/uL (150-450); RED BLOOD COUNT 2.98 10^6/uL (4.00-5.40); RED CELL DISTRIBUTION WIDTH 13.8 % (11.5-14.5); WHITE BLOOD COUNT 7.7 10^3/uL (4.0-10.0)
== END ==
LOC: M LAB 12:58 → SKLAB2 12:58
DX: L03.116 Cellulitis of left lower limb (principal); I50.9 Heart failure, unspecified
CPT/HCPCS: 85025

== ENCOUNTER → 2018-01-01 | Outpatient (REF) | payer MEDICARE, MEDICAID | LOC: SKLAB2 07:00 | DX: E87.6 Hypokalemia (principal) ==

== ENCOUNTER → 2018-01-02 | Outpatient (REF) | payer MEDICARE, MEDICAID ==
[2018-01-02 16:48] LABS: ANION GAP 11 MEQ/L (8-16); BLOOD UREA NITROGEN 76 MG/DL (7-18); CALCIUM LEVEL 8.3 MG/DL (8.8-10.2); CARBON DIOXIDE LEVEL 28 MEQ/L (21-32); CHLORIDE LEVEL 101 MEQ/L (98-107); GLOMERULAR FILTRATION RATE 52.9 (>45); GLUCOSE, FASTING 278 MG/DL (70-100); SODIUM LEVEL 140 MEQ/L (136-145)
== END ==
LOC: M LAB 15:13 → SKLAB2 15:15
DX: E87.6 Hypokalemia (principal)
CPT/HCPCS: 80048

== ENCOUNTER → 2018-01-07 | Outpatient (CLI) | payer MEDICARE, MEDICAID | LOC: M SLEEP 19:38 | DX: G47.33 Obstructive sleep apnea (adult) (pediatric) (principal) | CPT/HCPCS: 95811 ==

== ENCOUNTER → 2018-01-11 | Outpatient (REF) | payer MEDICARE, MEDICAID ==
[2018-01-11 09:20] LABS: ANION GAP 9 MEQ/L (8-16); BLOOD UREA NITROGEN 119 MG/DL (7-18); CALCIUM LEVEL 8.8 MG/DL (8.8-10.2); CARBON DIOXIDE LEVEL 29 MEQ/L (21-32); CHLORIDE LEVEL 103 MEQ/L (98-107); GLOMERULAR FILTRATION RATE 44.8 (>45); GLUCOSE, FASTING 244 MG/DL (70-100); POTASSIUM SERUM 4.7 MEQ/L (3.5-5.1); SODIUM LEVEL 141 MEQ/L (136-145)
== END ==
LOC: SKLAB2 08:00
DX: I50.9 Heart failure, unspecified (principal)
CPT/HCPCS: 36415

== ENCOUNTER → 2018-01-13 | Outpatient (REF) | payer MEDICARE, MEDICAID | LOC: SKLAB2 15:11 | DX: E11.9 Type 2 diabetes mellitus without complications (principal); I50.9 Heart failure, unspecified | CPT/HCPCS: 94762 ==

== ENCOUNTER → 2018-01-14 | Outpatient (REF) | payer MEDICARE, MEDICAID ==
[2018-01-14 10:16] LABS: ANION GAP 6 MEQ/L (8-16); BLOOD UREA NITROGEN 88 MG/DL (7-18); CALCIUM LEVEL 8.5 MG/DL (8.8-10.2); CARBON DIOXIDE LEVEL 33 MEQ/L (21-32); CHLORIDE LEVEL 106 MEQ/L (98-107); CREATININE FOR GFR 1.23 MG/DL (0.55-1.30); GLOMERULAR FILTRATION RATE 56.3 (>45); GLUCOSE, FASTING 170 MG/DL (70-100); POTASSIUM SERUM 4.2 MEQ/L (3.5-5.1); SODIUM LEVEL 145 MEQ/L (136-145)
== END ==
LOC: SKLAB2 10:01
DX: I50.9 Heart failure, unspecified (principal); N18.3 Chronic kidney disease, stage 3 (moderate)
CPT/HCPCS: 80048

== ENCOUNTER → 2018-01-18 | Outpatient (REF) | payer MEDICARE, MEDICAID ==
[2018-01-18 09:26] LABS: ANION GAP 9 MEQ/L (8-16); BLOOD UREA NITROGEN 67 MG/DL (7-18); CARBON DIOXIDE LEVEL 31 MEQ/L (21-32); CHLORIDE LEVEL 102 MEQ/L (98-107); CREATININE FOR GFR 2.15 MG/DL (0.55-1.30); GLOMERULAR FILTRATION RATE 29.6 (>45); GLUCOSE, FASTING 110 MG/DL (70-100); SODIUM LEVEL 142 MEQ/L (136-145)
== END ==
LOC: SKLAB2 07:00
DX: I50.9 Heart failure, unspecified (principal)
CPT/HCPCS: 80048

== ENCOUNTER → 2018-01-30 | Outpatient (REF) | payer MEDICARE, MEDICAID | LOC: M RAD 11:48 | DX: I51.7 Cardiomegaly (principal); Z95.828 Presence of other vascular implants and grafts; R05 Cough; R09.02 Hypoxemia | CPT/HCPCS: 71045 ==

== ENCOUNTER 2018-02-01 12:52 | Emergency (ER) | payer MEDICARE, MEDICAID ==
[2018-02-01] MEDS ORDERED: NS 1,000 ML IV (13:08)
[2018-02-01 14:44] LABS: BASO % 0.4 % (0.0-1.0); EOS # 0.3 10^3/uL (0.0-0.50); EOS % 2.8 % (0.0-3.0); HEMATOCRIT 31.1 % (36.0-47.0); HEMOGLOBIN 9.2 g/dl (12.0-15.5); IMMATURE GRANULOCYTE % 1.4 % (0-3.0); LYMPH # 1.1 10^3/uL (1.5-4.5); LYMPH % 11.5 % (24.0-44.0); MEAN CORPUSCULAR HEMOGLOBIN 29.1 pg (27.0-33.0); MEAN CORPUSCULAR HGB CONC 29.6 g/dl (32.0-36.5); MEAN CORPUSCULAR VOLUME 98.4 fl (80.0-96.0); MONO # 1.4 10^3/uL (0.0-0.8); MONO % 14.6 % (0.0-5.0); NEUTROPHILS # 6.4 10^3/uL (1.8-7.7); NEUTROPHILS % 69.3 % (36.0-66.0); PLATELET COUNT, AUTOMATED 328 10^3/uL (150-450); RED BLOOD COUNT 3.16 10^6/uL (4.00-5.40); WHITE BLOOD COUNT 9.2 10^3/uL (4.0-10.0)
[2018-02-01 15:02] LABS: INR 1.13; PROTHROMBIN TIME 14.7 SECONDS (12.1-14.4)
[2018-02-01 15:05] LABS: AMMONIA 42 uMOL/L (<32)
[2018-02-01 15:09] LABS: LACTIC ACID SEPSIS PROTOCOL 0.6 MMOL/L (0.4-2.0)
[2018-02-01 15:10] LABS: ALBUMIN 2.9 GM/DL (3.2-5.2); ALBUMIN/GLOBULIN RATIO 0.73 (1.00-1.93); ALKALINE PHOSPHATASE 102 U/L (45-117); ALT/SGPT 27 U/L (12-78); ANION GAP 7 MEQ/L (8-16); AST/SGOT 14 U/L (7-37); BILIRUBIN,DIRECT < 0.1 MG/DL (0.0-0.2); BILIRUBIN,TOTAL 0.1 MG/DL (0.2-1.0); BLOOD UREA NITROGEN 77 MG/DL (7-18); CALCIUM LEVEL 8.2 MG/DL (8.8-10.2); CARBON DIOXIDE LEVEL 32 MEQ/L (21-32); CHLORIDE LEVEL 97 MEQ/L (98-107); CPK CREATINE PHOSPHOKINASE 184 U/L (26-192); CREATININE FOR GFR 2.12 MG/DL (0.55-1.30); GLOMERULAR FILTRATION RATE 30.1 (>45); GLUCOSE, FASTING 123 MG/DL (70-100); NT-PRO BNP 9544 PG/ML (<125); POTASSIUM SERUM 5.3 MEQ/L (3.5-5.1); SODIUM LEVEL 136 MEQ/L (136-145); TOTAL PROTEIN 6.9 GM/DL (6.4-8.2); TROPONIN I < 0.02 NG/ML (< 0.10)
[2018-02-01] MEDS ORDERED: FUROSEMIDE 100 MG/10 ML VIAL (J1940) IV (16:00)
[2018-02-01] MEDS: IPRATROPIUM 0.5MG/ALBUTEROL 2.5MG INH SOL UD 3ML (DUONEB)(J7620) NEB ×3 (16:09→16:10)
[2018-02-01] MEDS: TORSEMIDE 20 MG TAB PO (16:22)
== END 2018-02-01 16:52 | disposition home or self-care (01) ==
LOC: M ED 12:52
DX: I50.9 Heart failure, unspecified (principal); E11.9 Type 2 diabetes mellitus without complications; I13.0 Hypertensive heart and chronic kidney disease with heart failure and stage 1 through stage 4 chronic kidney disease, or unspecified chronic kidney disease; N18.9 Chronic kidney disease, unspecified; Z88.1 Allergy status to other antibiotic agents; Z88.8 Allergy status to other drugs, medicaments and biological substances; Z88.5 Allergy status to narcotic agent; Z88.2 Allergy status to sulfonamides; Z79.899 Other long term (current) drug therapy; Z79.01 Long term (current) use of anticoagulants; Z79.82 Long term (current) use of aspirin; Z79.4 Long term (current) use of insulin; Z79.52 Long term (current) use of systemic steroids
CPT/HCPCS: 71045

== ENCOUNTER → 2018-02-01 | Outpatient (REF) | payer MEDICARE, MEDICAID ==
[2018-02-01 08:53] LABS: ANION GAP 6 MEQ/L (8-16); BLOOD UREA NITROGEN 78 MG/DL (7-18); CALCIUM LEVEL 8.7 MG/DL (8.8-10.2); CARBON DIOXIDE LEVEL 31 MEQ/L (21-32); CHLORIDE LEVEL 98 MEQ/L (98-107); CREATININE FOR GFR 2.18 MG/DL (0.55-1.30); GLOMERULAR FILTRATION RATE 29.1 (>45); GLUCOSE, FASTING 155 MG/DL (70-100); POTASSIUM SERUM 5.3 MEQ/L (3.5-5.1); SODIUM LEVEL 135 MEQ/L (136-145)
[2018-02-01 09:11] LABS: HEMATOCRIT 32.2 % (36.0-47.0); HEMOGLOBIN 9.4 g/dl (12.0-15.5); MEAN CORPUSCULAR HEMOGLOBIN 28.7 pg (27.0-33.0); MEAN CORPUSCULAR HGB CONC 29.2 g/dl (32.0-36.5); MEAN CORPUSCULAR VOLUME 98.5 fl (80.0-96.0); PLATELET COUNT, AUTOMATED 358 10^3/uL (150-450); RED BLOOD COUNT 3.27 10^6/uL (4.00-5.40); RED CELL DISTRIBUTION WIDTH 13.2 % (11.5-14.5); WHITE BLOOD COUNT 9.3 10^3/uL (4.0-10.0)
[2018-02-01 09:24] LABS: NT-PRO BNP 10926 PG/ML (<125); PHOSPHORUS LEVEL 5.2 MG/DL (2.5-4.9)
== END ==
LOC: SKLAB2 08:00
DX: I50.9 Heart failure, unspecified (principal)
CPT/HCPCS: 80069

== ENCOUNTER → 2018-02-03 | Outpatient (REF) | payer MEDICARE, MEDICAID ==
[2018-02-03 12:18] LABS: ALBUMIN 2.7 GM/DL (3.2-5.2); ANION GAP 8 MEQ/L (8-16); BLOOD UREA NITROGEN 59 MG/DL (7-18); CALCIUM LEVEL 8.4 MG/DL (8.8-10.2); CARBON DIOXIDE LEVEL 31 MEQ/L (21-32); CHLORIDE LEVEL 103 MEQ/L (98-107); GLOMERULAR FILTRATION RATE > 60.0 (>45); GLUCOSE, FASTING 92 MG/DL (70-100); PHOSPHORUS LEVEL 3.5 MG/DL (2.5-4.9); POTASSIUM SERUM 4.8 MEQ/L (3.5-5.1); SODIUM LEVEL 142 MEQ/L (136-145)
== END ==
LOC: SKLAB2 13:20
DX: N18.9 Chronic kidney disease, unspecified (principal)
CPT/HCPCS: 80069

== ENCOUNTER → 2018-02-05 | Outpatient (REF) | payer MEDICARE, MEDICAID ==
[2018-02-05 11:33] LABS: ALBUMIN 2.8 GM/DL (3.2-5.2); ANION GAP 11 MEQ/L (8-16); BLOOD UREA NITROGEN 25 MG/DL (7-18); CALCIUM LEVEL 8.5 MG/DL (8.8-10.2); CARBON DIOXIDE LEVEL 32 MEQ/L (21-32); CHLORIDE LEVEL 105 MEQ/L (98-107); CREATININE FOR GFR 0.82 MG/DL (0.55-1.30); GLOMERULAR FILTRATION RATE > 60.0 (>45); GLUCOSE, FASTING 99 MG/DL (70-100); PHOSPHORUS LEVEL 2.9 MG/DL (2.5-4.9); POTASSIUM SERUM 4.1 MEQ/L (3.5-5.1); SODIUM LEVEL 148 MEQ/L (136-145)
== END ==
LOC: SKLAB2 10:04
DX: N18.9 Chronic kidney disease, unspecified (principal)
CPT/HCPCS: 80185

== ENCOUNTER → 2018-02-15 | Outpatient (REF) | payer MEDICARE, MEDICAID ==
[2018-02-15 08:40] LABS: HEMATOCRIT 30.9 % (36.0-47.0); HEMOGLOBIN 9.3 g/dl (12.0-15.5); MEAN CORPUSCULAR HEMOGLOBIN 28.4 pg (27.0-33.0); MEAN CORPUSCULAR HGB CONC 30.1 g/dl (32.0-36.5); MEAN CORPUSCULAR VOLUME 94.2 fl (80.0-96.0); PLATELET COUNT, AUTOMATED 359 10^3/uL (150-450); RED BLOOD COUNT 3.28 10^6/uL (4.00-5.40); RED CELL DISTRIBUTION WIDTH 13.3 % (11.5-14.5); WHITE BLOOD COUNT 6.4 10^3/uL (4.0-10.0)
[2018-02-15 10:35] LABS: ALBUMIN 2.8 GM/DL (3.2-5.2); ALBUMIN/GLOBULIN RATIO 0.88 (1.00-1.93); ALKALINE PHOSPHATASE 67 U/L (45-117); ALT/SGPT 15 U/L (12-78); ANION GAP 8 MEQ/L (8-16); AST/SGOT 9 U/L (7-37); BILIRUBIN,TOTAL 0.2 MG/DL (0.2-1.0); BLOOD UREA NITROGEN 40 MG/DL (7-18); CALCIUM LEVEL 8.2 MG/DL (8.8-10.2); CARBON DIOXIDE LEVEL 35 MEQ/L (21-32); CHLORIDE LEVEL 100 MEQ/L (98-107); CREATININE FOR GFR 0.82 MG/DL (0.55-1.30); GLOMERULAR FILTRATION RATE > 60.0 (>45); GLUCOSE, FASTING 74 MG/DL (70-100); IRON (FE) 43 UG/DL (50-170); PERCENT SATURATION 28.7 % (13.2-45.0); POTASSIUM SERUM 3.7 MEQ/L (3.5-5.1); SODIUM LEVEL 143 MEQ/L (136-145); TOTAL IRON BINDING CAPACITY 150 UG/DL (250-450)
[2018-02-15 14:40] LABS: ESTIMATED AVERAGE GLUCOSE 192 MG/DL (60-110); HEMOGLOBIN A1c 8.3 %
== END ==
LOC: SKLAB2 07:00
DX: D64.9 Anemia, unspecified (principal); I50.9 Heart failure, unspecified; E11.9 Type 2 diabetes mellitus without complications; I11.0 Hypertensive heart disease with heart failure
CPT/HCPCS: 83550

== ENCOUNTER → 2018-02-17 | Outpatient (REF) | payer MEDICARE, MEDICAID | LOC: SKLAB2 14:11 | DX: M54.5 Low back pain (principal); W19.XXXA Unspecified fall, initial encounter | CPT/HCPCS: 72220 ==

== ENCOUNTER → 2018-03-05 | Outpatient (REF) | payer MEDICARE, MEDICAID | LOC: SKLAB2 07:09 | DX: J45.40 Moderate persistent asthma, uncomplicated (principal); I51.7 Cardiomegaly; Z95.828 Presence of other vascular implants and grafts; I28.8 Other diseases of pulmonary vessels | CPT/HCPCS: 71046 ==

== ENCOUNTER → 2018-03-07 | Outpatient (CLI) | payer MEDICARE, MEDICAID | LOC: M SLEEP 19:55 | DX: G47.33 Obstructive sleep apnea (adult) (pediatric) (principal) | CPT/HCPCS: 95811 ==

== ENCOUNTER → 2018-03-16 | Outpatient (REF) | payer MEDICARE, MEDICAID | LOC: SKLAB2 11:34 | DX: R05 Cough (principal); Z53.9 Procedure and treatment not carried out, unspecified reason ==

== ENCOUNTER 2018-03-26 12:54 | Inpatient (IN) | payer MEDICARE, MEDICAID ==
[2018-03-26 13:21] LABS: BEDSIDE GLUCOSE 93 MG/DL (80-115)
[2018-03-26 13:23] LABS: ABG BASE EXCESS 10.2 (-2.0-2.0); ABG HCO3 39.2 MEQ/L (22.0-26.0); ABG O2 SATURATION 97.4 % (95.0-99.0); ABG TOTAL CO2 41.7 MEQ/L (23.0-31.0); ABG pH (ARTERIAL) 7.298 UNITS (7.350-7.450)
[2018-03-26 13:29] LABS: ABG PARTIAL PRESSURE CO2 81.8 mmHg (35.0-45.0)
[2018-03-26 14:20] LABS: BASO % 0.3 % (0.0-1.0); EOS # 0.1 10^3/uL (0.0-0.50); EOS % 0.8 % (0.0-3.0); HEMATOCRIT 31.7 % (36.0-47.0); HEMOGLOBIN 9.4 g/dl (12.0-15.5); IMMATURE GRANULOCYTE % 1.3 % (0-3.0); LYMPH % 11.2 % (24.0-44.0); MEAN CORPUSCULAR HEMOGLOBIN 29.4 pg (27.0-33.0); MEAN CORPUSCULAR HGB CONC 29.7 g/dl (32.0-36.5); MEAN CORPUSCULAR VOLUME 99.1 fl (80.0-96.0); MONO # 1.1 10^3/uL (0.0-0.8); MONO % 12.4 % (0.0-5.0); NEUTROPHILS # 6.7 10^3/uL (1.8-7.7); PLATELET COUNT, AUTOMATED 277 10^3/uL (150-450); RED CELL DISTRIBUTION WIDTH 15.5 % (11.5-14.5)
[2018-03-26 14:44] LABS: LACTIC ACID SEPSIS PROTOCOL 0.5 MMOL/L (0.4-2.0)
[2018-03-26 14:48] LABS: AMMONIA 29 uMOL/L (<32)
[2018-03-26 14:56] LABS: ALBUMIN/GLOBULIN RATIO 0.81 (1.00-1.93); ALKALINE PHOSPHATASE 82 U/L (45-117); ALT/SGPT 77 U/L (12-78); ANION GAP 9 MEQ/L (8-16); AST/SGOT 81 U/L (7-37); BILIRUBIN,DIRECT < 0.1 MG/DL (0.0-0.2); BILIRUBIN,TOTAL 0.2 MG/DL (0.2-1.0); BLOOD UREA NITROGEN 53 MG/DL (7-18); CALCIUM LEVEL 7.7 MG/DL (8.8-10.2); CARBON DIOXIDE LEVEL 36 MEQ/L (21-32); CHLORIDE LEVEL 97 MEQ/L (98-107); CK-MB VALUE MASS < 1.0 NG/ML (<3.6); CPK CREATINE PHOSPHOKINASE 80 U/L (26-192); CREATININE FOR GFR 1.38 MG/DL (0.55-1.30); GLOMERULAR FILTRATION RATE 49.3 (>45); GLUCOSE, FASTING 87 MG/DL (70-100); MB/CK RELATIVE INDEX 1.25 (< OR =4); PHENYTOIN (DILANTIN) 16.3 UG/ML (10.0-20.0); POTASSIUM SERUM 3.9 MEQ/L (3.5-5.1); SODIUM LEVEL 142 MEQ/L (136-145); THYROID STIMULATING HORMONE 0.745 uIU/ML (0.358-3.740); TOTAL PROTEIN 6.7 GM/DL (6.4-8.2); TROPONIN I 0.03 NG/ML (< 0.10)
[2018-03-26 15:31] LABS: ABG BASE EXCESS 6.9 (-2.0-2.0); ABG HCO3 35.2 MEQ/L (22.0-26.0); ABG O2 SATURATION 90.5 % (95.0-99.0); ABG PARTIAL PRESSURE O2 66.7 mmHg (75.0-100.0); ABG STANDARD HCO3 30.6 MEQ/L (22.0-26.0); ABG TOTAL CO2 37.4 MEQ/L (23.0-31.0); ABG pH (ARTERIAL) 7.297 UNITS (7.350-7.450)
[2018-03-26 15:39] LABS: ABG PARTIAL PRESSURE CO2 73.6 mmHg (35.0-45.0)
[2018-03-26] MEDS: PIPERACILLIN/TAZOBACTAM SOD 4.5 GM in D5W MINI-BAG PLUS 50 ML IV (17:03)
[2018-03-26] MEDS ORDERED: GLUCOSE 4 GM CHEW TABLET PO (19:45)
[2018-03-26] MEDS ORDERED: GLUCAGON FOR INJ 1 MG VIAL (J1610) SC (19:45)
[2018-03-26] MEDS: NS 1,000 ML IV (20:04)
[2018-03-26] MEDS: HumaLOG INSULIN (NovoLOG) PER UNIT SC (22:29)
[2018-03-26] MEDS: **hydrALAZINE** 50 MG TAB PO (23:25)
[2018-03-26] MEDS: LevoFLOXacin IV 750 MG in APPROPRIATE DILUENT 1 EA IV (23:25)
[2018-03-26] MEDS: ISOSORBIDE DIN. (ISORDIL) 5 MG TAB PO (23:26)
[2018-03-26] MEDS: METOPROLOL TARTRATE 100 MG TAB PO (23:26)
[2018-03-26] MEDS: ROSUVASTATIN 10 MG TAB (CRESTOR) PO (23:26)
[2018-03-26] MEDS: HEPARIN SOD (PORCINE) 5000 UNITS/ML VIAL SC (23:26)
[2018-03-27] MEDS: ACETAMINOPHEN 500 MG TAB PO
[2018-03-27 00:50] LABS: BEDSIDE GLUCOSE 95 MG/DL (80-115)
[2018-03-27] MEDS: PERCOCET 5MG/325MG TAB PO (03:15)
[2018-03-27] MEDS: NS 1,000 ML IV (04:49)
[2018-03-27 05:00] LABS: BASO % 0.3 % (0.0-1.0); EOS # 0.1 10^3/uL (0.0-0.50); EOS % 1.6 % (0.0-3.0); HEMATOCRIT 29.2 % (36.0-47.0); HEMOGLOBIN 8.8 g/dl (12.0-15.5); IMMATURE GRANULOCYTE % 1.7 % (0-3.0); LYMPH # 0.9 10^3/uL (1.5-4.5); LYMPH % 13.6 % (24.0-44.0); MEAN CORPUSCULAR HEMOGLOBIN 29.5 pg (27.0-33.0); MEAN CORPUSCULAR HGB CONC 30.1 g/dl (32.0-36.5); NEUTROPHILS # 4.3 10^3/uL (1.8-7.7); NEUTROPHILS % 66.8 % (36.0-66.0); PLATELET COUNT, AUTOMATED 256 10^3/uL (150-450); RED BLOOD COUNT 2.98 10^6/uL (4.00-5.40); WHITE BLOOD COUNT 6.5 10^3/uL (4.0-10.0)
[2018-03-27 05:23] LABS: ANION GAP 6 MEQ/L (8-16); BLOOD UREA NITROGEN 52 MG/DL (7-18); CALCIUM LEVEL 7.8 MG/DL (8.8-10.2); CARBON DIOXIDE LEVEL 37 MEQ/L (21-32); CHLORIDE LEVEL 100 MEQ/L (98-107); CREATININE FOR GFR 1.16 MG/DL (0.55-1.30); GLOMERULAR FILTRATION RATE > 60.0 (>45); GLUCOSE, FASTING 78 MG/DL (70-100); POTASSIUM SERUM 3.7 MEQ/L (3.5-5.1); SODIUM LEVEL 143 MEQ/L (136-145)
[2018-03-27 05:55] LABS: BEDSIDE GLUCOSE 79 MG/DL (80-115)
[2018-03-27] MEDS: HEPARIN SOD (PORCINE) 5000 UNITS/ML VIAL SC ×3 (05:55→22:26)
[2018-03-27] MEDS: HumaLOG INSULIN (NovoLOG) PER UNIT SC ×4 (05:55→18:00)
[2018-03-27] MEDS: DEXTROSE 50% 50 ML SYRINGE IV (06:34)
[2018-03-27] MEDS: GABAPENTIN 100 MG CAP PO ×2 (07:43→15:29)
[2018-03-27 08:30] LABS: ABG BASE EXCESS 10.1 (-2.0-2.0); ABG HCO3 36.3 MEQ/L (22.0-26.0); ABG O2 SATURATION 96.4 % (95.0-99.0); ABG PARTIAL PRESSURE CO2 58.7 mmHg (35.0-45.0); ABG STANDARD HCO3 33.8 MEQ/L (22.0-26.0); ABG TOTAL CO2 38.1 MEQ/L (23.0-31.0); ABG pH (ARTERIAL) 7.409 UNITS (7.350-7.450)
[2018-03-27] MEDS ORDERED: FUROSEMIDE 100 MG/10 ML VIAL (J1940) IV (09:00)
[2018-03-27] MEDS ORDERED: TORSEMIDE 20 MG TAB PO (09:00)
[2018-03-27] MEDS: METOPROLOL TARTRATE 100 MG TAB PO ×2 (09:04→22:25)
[2018-03-27] MEDS: **hydrALAZINE** 50 MG TAB PO ×3 (09:04→22:25)
[2018-03-27] MEDS: DOCUSATE SODIUM 100 MG CAP PO (09:05)
[2018-03-27] MEDS: SPIRONOLACTONE 25 MG TAB PO (09:05)
[2018-03-27] MEDS: PANTOPRAZOLE 40MG TAB (PROTONIX) PO (09:05)
[2018-03-27] MEDS: ASPIRIN 325 MG TAB PO (09:05)
[2018-03-27] MEDS: ISOSORBIDE DIN. (ISORDIL) 5 MG TAB PO ×3 (09:05→22:25)
[2018-03-27] MEDS: guaiFENesin ER 600 MG TAB PO ×2 (09:05→22:26)
[2018-03-27] MEDS: CETIRIZINE (ZyrTEC) 10 MG TAB PO (09:05)
[2018-03-27] MEDS: predniSONE 10 MG TAB PO (09:05)
[2018-03-27] MEDS: PHENYTOIN ER 100 MG CAP PO (09:05)
[2018-03-27] MEDS: SYMBICORT 160/4.5MCG INHALER 6GM INH ×2 (09:21→19:51)
[2018-03-27] MEDS: IPRATROPIUM 0.5MG/ALBUTEROL 2.5MG INH SOL UD 3ML (DUONEB)(J7620) NEB ×3 (09:22→19:51)
[2018-03-27] MEDS: TORSEMIDE 100 MG TAB PO ×2 (09:25→18:20)
[2018-03-27] MEDS ORDERED: ISOVUE-370 76% 100ML VIAL (Q9967) As Ordered (13:40)
[2018-03-27 14:04] LABS: BEDSIDE GLUCOSE 111 MG/DL (80-115)
[2018-03-27] MEDS: BRIMONIDINE 0.15% OPHTH SOLN 5 ML OU ×2 (15:29→22:50)
[2018-03-27 17:23] LABS: BEDSIDE GLUCOSE 92 MG/DL (80-115)
[2018-03-27 19:36] LABS: BEDSIDE GLUCOSE 95 MG/DL (80-115)
[2018-03-27 19:51] LABS: ABG BASE EXCESS 8.1 (-2.0-2.0); ABG HCO3 36.3 MEQ/L (22.0-26.0); ABG O2 SATURATION 91.1 % (95.0-99.0); ABG PARTIAL PRESSURE O2 68.7 mmHg (75.0-100.0); ABG STANDARD HCO3 31.8 MEQ/L (22.0-26.0); ABG TOTAL CO2 38.6 MEQ/L (23.0-31.0); ABG pH (ARTERIAL) 7.306 UNITS (7.350-7.450)
[2018-03-27 19:53] LABS: ABG PARTIAL PRESSURE CO2 74.5 mmHg (35.0-45.0)
[2018-03-27] MEDS: methylPREDNISolone INJ 125 MG/2 ML VIAL (J2930) IV (20:08)
[2018-03-27] MEDS: NALOXONE INJ 0.4 MG/1 ML VIAL (J2310) IV (20:09)
[2018-03-27 21:25] LABS: ABG BASE EXCESS 6.6 (-2.0-2.0); ABG HCO3 33.6 MEQ/L (22.0-26.0); ABG O2 SATURATION 94.2 % (95.0-99.0); ABG PARTIAL PRESSURE O2 73.2 mmHg (75.0-100.0); ABG STANDARD HCO3 30.4 MEQ/L (22.0-26.0); ABG TOTAL CO2 35.5 MEQ/L (23.0-31.0); ABG pH (ARTERIAL) 7.352 UNITS (7.350-7.450)
[2018-03-27] MEDS: ROSUVASTATIN 10 MG TAB (CRESTOR) PO (22:24)
[2018-03-28 00:21] LABS: BEDSIDE GLUCOSE 121 MG/DL (80-115)
[2018-03-28] MEDS: HumaLOG INSULIN (NovoLOG) PER UNIT SC ×4 (00:43→18:45)
[2018-03-28] MEDS: IPRATROPIUM 0.5MG/ALBUTEROL 2.5MG INH SOL UD 3ML (DUONEB)(J7620) NEB ×4 (02:57→20:00)
[2018-03-28 05:25] LABS: HEMATOCRIT 29.1 % (36.0-47.0); HEMOGLOBIN 8.5 g/dl (12.0-15.5); MEAN CORPUSCULAR HEMOGLOBIN 28.8 pg (27.0-33.0); MEAN CORPUSCULAR HGB CONC 29.2 g/dl (32.0-36.5); MEAN CORPUSCULAR VOLUME 98.6 fl (80.0-96.0); PLATELET COUNT, AUTOMATED 262 10^3/uL (150-450); RED BLOOD COUNT 2.95 10^6/uL (4.00-5.40); RED CELL DISTRIBUTION WIDTH 15.1 % (11.5-14.5); WHITE BLOOD COUNT 6.9 10^3/uL (4.0-10.0)
[2018-03-28 06:11] LABS: ANION GAP 7 MEQ/L (8-16); BLOOD UREA NITROGEN 50 MG/DL (7-18); CALCIUM LEVEL 7.8 MG/DL (8.8-10.2); CARBON DIOXIDE LEVEL 36 MEQ/L (21-32); CHLORIDE LEVEL 101 MEQ/L (98-107); CREATININE FOR GFR 1.14 MG/DL (0.55-1.30); GLOMERULAR FILTRATION RATE > 60.0 (>45); GLUCOSE, FASTING 102 MG/DL (70-100); SODIUM LEVEL 144 MEQ/L (136-145)
[2018-03-28] MEDS: methylPREDNISolone INJ 125 MG/2 ML VIAL (J2930) IV ×3 (06:18→21:55)
[2018-03-28] MEDS: HEPARIN SOD (PORCINE) 5000 UNITS/ML VIAL SC ×3 (06:19→21:55)
[2018-03-28] MEDS: SYMBICORT 160/4.5MCG INHALER 6GM INH ×2 (08:27→20:21)
[2018-03-28] MEDS: GABAPENTIN 100 MG CAP PO ×2 (08:43→13:55)
[2018-03-28] MEDS: guaiFENesin ER 600 MG TAB PO ×2 (08:43→20:32)
[2018-03-28] MEDS: ASPIRIN 325 MG TAB PO (08:43)
[2018-03-28] MEDS: ISOSORBIDE DIN. (ISORDIL) 5 MG TAB PO ×3 (08:43→20:31)
[2018-03-28] MEDS: TORSEMIDE 100 MG TAB PO ×2 (08:44→16:43)
[2018-03-28] MEDS: DOCUSATE SODIUM 100 MG CAP PO (08:44)
[2018-03-28] MEDS: SPIRONOLACTONE 25 MG TAB PO (08:44)
[2018-03-28] MEDS: **hydrALAZINE** 50 MG TAB PO ×3 (08:44→20:32)
[2018-03-28] MEDS: METOPROLOL TARTRATE 100 MG TAB PO ×2 (08:44→20:33)
[2018-03-28] MEDS: PANTOPRAZOLE 40MG TAB (PROTONIX) PO (08:44)
[2018-03-28] MEDS: PHENYTOIN ER 100 MG CAP PO (08:47)
[2018-03-28 11:53] LABS: BEDSIDE GLUCOSE 126 MG/DL (80-115)
[2018-03-28] MEDS: BRIMONIDINE 0.15% OPHTH SOLN 5 ML OU ×2 (13:55→20:30)
[2018-03-28 18:05] LABS: BEDSIDE GLUCOSE 145 MG/DL (80-115)
[2018-03-28] MEDS: ROSUVASTATIN 10 MG TAB (CRESTOR) PO (20:32)
[2018-03-28] MEDS: LevoFLOXacin IV 750 MG in APPROPRIATE DILUENT 1 EA IV (20:33)
[2018-03-28] MEDS: ACETAMINOPHEN 500 MG TAB PO (21:56)
[2018-03-29 00:18] LABS: BEDSIDE GLUCOSE 133 MG/DL (80-115)
[2018-03-29] MEDS: HumaLOG INSULIN (NovoLOG) PER UNIT SC ×4 (00:36→18:39)
[2018-03-29] MEDS: IPRATROPIUM 0.5MG/ALBUTEROL 2.5MG INH SOL UD 3ML (DUONEB)(J7620) NEB ×4 (02:00→20:00)
[2018-03-29 05:42] LABS: BEDSIDE GLUCOSE 122 MG/DL (80-115)
[2018-03-29] MEDS: methylPREDNISolone INJ 125 MG/2 ML VIAL (J2930) IV ×3 (05:50→22:13)
[2018-03-29] MEDS: HEPARIN SOD (PORCINE) 5000 UNITS/ML VIAL SC ×3 (05:51→22:12)
[2018-03-29] MEDS: PHENYTOIN ER 100 MG CAP PO (07:52)
[2018-03-29] MEDS: TORSEMIDE 100 MG TAB PO ×2 (07:53→16:33)
[2018-03-29] MEDS: **hydrALAZINE** 50 MG TAB PO ×3 (07:53→22:12)
[2018-03-29] MEDS: METOPROLOL TARTRATE 100 MG TAB PO ×2 (07:54→22:12)
[2018-03-29] MEDS: guaiFENesin ER 600 MG TAB PO ×2 (07:54→22:13)
[2018-03-29] MEDS: ISOSORBIDE DIN. (ISORDIL) 5 MG TAB PO ×3 (07:54→22:11)
[2018-03-29] MEDS: ASPIRIN 325 MG TAB PO (07:54)
[2018-03-29] MEDS: PANTOPRAZOLE 40MG TAB (PROTONIX) PO (07:54)
[2018-03-29] MEDS: SPIRONOLACTONE 25 MG TAB PO (07:54)
[2018-03-29] MEDS: DOCUSATE SODIUM 100 MG CAP PO (07:55)
[2018-03-29] MEDS: GABAPENTIN 100 MG CAP PO ×2 (07:55→13:07)
[2018-03-29 08:21] LABS: BASO % 0.3 % (0.0-1.0); EOS % 0.2 % (0.0-3.0); HEMATOCRIT 29.3 % (36.0-47.0); HEMOGLOBIN 8.9 g/dl (12.0-15.5); LYMPH # 0.9 10^3/uL (1.5-4.5); LYMPH % 15.4 % (24.0-44.0); MEAN CORPUSCULAR HEMOGLOBIN 29.4 pg (27.0-33.0); MEAN CORPUSCULAR HGB CONC 30.4 g/dl (32.0-36.5); MEAN CORPUSCULAR VOLUME 96.7 fl (80.0-96.0); MONO # 0.6 10^3/uL (0.0-0.8); MONO % 10.3 % (0.0-5.0); NEUTROPHILS # 4.4 10^3/uL (1.8-7.7); NEUTROPHILS % 72.8 % (36.0-66.0); PLATELET COUNT, AUTOMATED 290 10^3/uL (150-450); RED BLOOD COUNT 3.03 10^6/uL (4.00-5.40)
[2018-03-29] MEDS: ACETAMINOPHEN 500 MG TAB PO (08:21)
[2018-03-29] MEDS: SYMBICORT 160/4.5MCG INHALER 6GM INH ×2 (08:34→20:29)
[2018-03-29 08:36] LABS: ANION GAP 10 MEQ/L (8-16); BLOOD UREA NITROGEN 48 MG/DL (7-18); CALCIUM LEVEL 7.5 MG/DL (8.8-10.2); CARBON DIOXIDE LEVEL 31 MEQ/L (21-32); CHLORIDE LEVEL 101 MEQ/L (98-107); CREATININE FOR GFR 1.45 MG/DL (0.55-1.30); GLOMERULAR FILTRATION RATE 46.6 (>45); GLUCOSE, FASTING 121 MG/DL (70-100); POTASSIUM SERUM 3.6 MEQ/L (3.5-5.1); SODIUM LEVEL 142 MEQ/L (136-145)
[2018-03-29 08:52] LABS: ABG BASE EXCESS 8.7 (-2.0-2.0); ABG HCO3 34.8 MEQ/L (22.0-26.0); ABG PARTIAL PRESSURE CO2 56.7 mmHg (35.0-45.0); ABG PARTIAL PRESSURE O2 83.1 mmHg (75.0-100.0); ABG STANDARD HCO3 32.5 MEQ/L (22.0-26.0); ABG TOTAL CO2 36.6 MEQ/L (23.0-31.0); ABG pH (ARTERIAL) 7.406 UNITS (7.350-7.450)
[2018-03-29 11:50] LABS: BEDSIDE GLUCOSE 202 MG/DL (80-115)
[2018-03-29] MEDS: BRIMONIDINE 0.15% OPHTH SOLN 5 ML OU ×2 (13:10→19:56)
[2018-03-29 17:39] LABS: BEDSIDE GLUCOSE 210 MG/DL (80-115)
[2018-03-29] MEDS: BISACODYL 10 MG SUPP PR (18:38)
[2018-03-29] MEDS ORDERED: DEXTROSE 50% 50 ML SYRINGE IV (21:00)
[2018-03-29] MEDS ORDERED: HumaLOG INSULIN (NovoLOG) PER UNIT SC (21:00)
[2018-03-29] MEDS ORDERED: GLUCOSE 4 GM CHEW TABLET PO (21:00)
[2018-03-29 21:20] LABS: BEDSIDE GLUCOSE 239 MG/DL (80-115)
[2018-03-29] MEDS: ROSUVASTATIN 10 MG TAB (CRESTOR) PO (22:11)
[2018-03-30 00:19] LABS: BEDSIDE GLUCOSE 207 MG/DL (80-115)
[2018-03-30] MEDS: HumaLOG INSULIN (NovoLOG) PER UNIT SC ×4 (00:31→18:46)
[2018-03-30] MEDS: IPRATROPIUM 0.5MG/ALBUTEROL 2.5MG INH SOL UD 3ML (DUONEB)(J7620) NEB ×6 (02:00→23:13)
[2018-03-30 05:04] LABS: BEDSIDE GLUCOSE 182 MG/DL (80-115)
[2018-03-30 05:13] LABS: BASO % 0.2 % (0.0-1.0); HEMATOCRIT 26.2 % (36.0-47.0); HEMOGLOBIN 8.1 g/dl (12.0-15.5); IMMATURE GRANULOCYTE % 0.9 % (0-3.0); LYMPH # 0.9 10^3/uL (1.5-4.5); LYMPH % 16.1 % (24.0-44.0); MEAN CORPUSCULAR HEMOGLOBIN 29.2 pg (27.0-33.0); MEAN CORPUSCULAR HGB CONC 30.9 g/dl (32.0-36.5); MEAN CORPUSCULAR VOLUME 94.6 fl (80.0-96.0); MONO # 0.6 10^3/uL (0.0-0.8); MONO % 11.2 % (0.0-5.0); NEUTROPHILS # 3.9 10^3/uL (1.8-7.7); NEUTROPHILS % 71.6 % (36.0-66.0); PLATELET COUNT, AUTOMATED 285 10^3/uL (150-450); RED BLOOD COUNT 2.77 10^6/uL (4.00-5.40); RED CELL DISTRIBUTION WIDTH 15.1 % (11.5-14.5); WHITE BLOOD COUNT 5.5 10^3/uL (4.0-10.0)
[2018-03-30 05:32] LABS: ANION GAP 6 MEQ/L (8-16); BLOOD UREA NITROGEN 55 MG/DL (7-18); CALCIUM LEVEL 7.7 MG/DL (8.8-10.2); CARBON DIOXIDE LEVEL 35 MEQ/L (21-32); CHLORIDE LEVEL 97 MEQ/L (98-107); GLOMERULAR FILTRATION RATE 28.8 (>45); GLUCOSE, FASTING 187 MG/DL (70-100); POTASSIUM SERUM 3.9 MEQ/L (3.5-5.1); SODIUM LEVEL 138 MEQ/L (136-145)
[2018-03-30 06:12] LABS: BEDSIDE GLUCOSE 169 MG/DL (80-115)
[2018-03-30] MEDS: methylPREDNISolone INJ 125 MG/2 ML VIAL (J2930) IV ×3 (06:17→21:25)
[2018-03-30] MEDS: HEPARIN SOD (PORCINE) 5000 UNITS/ML VIAL SC ×3 (06:17→21:25)
[2018-03-30] MEDS: LevoFLOXacin 750 MG TABLET PO (06:17)
[2018-03-30] MEDS: SYMBICORT 160/4.5MCG INHALER 6GM INH ×2 (07:19→20:27)
[2018-03-30] MEDS ORDERED: HumaLOG INSULIN (NovoLOG) PER UNIT SC (07:30)
[2018-03-30] MEDS: guaiFENesin ER 600 MG TAB PO ×2 (08:13→21:27)
[2018-03-30] MEDS: PHENYTOIN ER 100 MG CAP PO (08:13)
[2018-03-30] MEDS: DOCUSATE SODIUM 100 MG CAP PO (08:14)
[2018-03-30] MEDS: ISOSORBIDE DIN. (ISORDIL) 5 MG TAB PO ×3 (08:15→21:27)
[2018-03-30] MEDS: PANTOPRAZOLE 40MG TAB (PROTONIX) PO (08:15)
[2018-03-30] MEDS: ASPIRIN 325 MG TAB PO (08:15)
[2018-03-30] MEDS: **hydrALAZINE** 50 MG TAB PO ×3 (08:15→21:27)
[2018-03-30] MEDS: GABAPENTIN 100 MG CAP PO ×2 (08:16→13:14)
[2018-03-30] MEDS: METOPROLOL TARTRATE 100 MG TAB PO ×2 (08:16→21:27)
[2018-03-30 10:38] LABS: FERRITIN 164 NG/ML (8-252); IRON (FE) 66 UG/DL (50-170); PERCENT SATURATION 42.9 % (13.2-45.0); TOTAL IRON BINDING CAPACITY 154 UG/DL (250-450)
[2018-03-30 11:14] LABS: SODIUM,RANDOM URINE 21 MEQ/L
[2018-03-30 11:14] LABS: CREATININE,RANDOM URINE 86.6 MG/DL
[2018-03-30 11:59] LABS: BEDSIDE GLUCOSE 247 MG/DL (80-115)
[2018-03-30] MEDS: NS 500 ML IV (13:14)
[2018-03-30] MEDS: BRIMONIDINE 0.15% OPHTH SOLN 5 ML OU ×2 (13:15→19:10)
[2018-03-30 17:39] LABS: BEDSIDE GLUCOSE 242 MG/DL (80-115)
[2018-03-30] MEDS: ACETAMINOPHEN 500 MG TAB PO (19:10)
[2018-03-30] MEDS: ROSUVASTATIN 10 MG TAB (CRESTOR) PO (21:26)
[2018-03-31 00:27] LABS: BEDSIDE GLUCOSE 246 MG/DL (80-115)
[2018-03-31] MEDS: HumaLOG INSULIN (NovoLOG) PER UNIT SC ×5 (00:44→21:10)
[2018-03-31] MEDS: IPRATROPIUM 0.5MG/ALBUTEROL 2.5MG INH SOL UD 3ML (DUONEB)(J7620) NEB ×5 (04:00→20:00)
[2018-03-31 05:24] LABS: BASO % 0.4 % (0.0-1.0); HEMATOCRIT 26.5 % (36.0-47.0); HEMOGLOBIN 8.1 g/dl (12.0-15.5); IMMATURE GRANULOCYTE % 3.6 % (0-3.0); LYMPH % 20.9 % (24.0-44.0); MEAN CORPUSCULAR HEMOGLOBIN 29.1 pg (27.0-33.0); MEAN CORPUSCULAR HGB CONC 30.6 g/dl (32.0-36.5); MEAN CORPUSCULAR VOLUME 95.3 fl (80.0-96.0); MONO # 0.6 10^3/uL (0.0-0.8); NEUTROPHILS % 63.1 % (36.0-66.0); PLATELET COUNT, AUTOMATED 256 10^3/uL (150-450); RED BLOOD COUNT 2.78 10^6/uL (4.00-5.40); RED CELL DISTRIBUTION WIDTH 14.9 % (11.5-14.5); WHITE BLOOD COUNT 4.7 10^3/uL (4.0-10.0)
[2018-03-31 05:34] LABS: ANION GAP 7 MEQ/L (8-16); BLOOD UREA NITROGEN 61 MG/DL (7-18); CALCIUM LEVEL 7.6 MG/DL (8.8-10.2); CARBON DIOXIDE LEVEL 33 MEQ/L (21-32); CHLORIDE LEVEL 97 MEQ/L (98-107); CREATININE FOR GFR 2.33 MG/DL (0.55-1.30); GLUCOSE, FASTING 228 MG/DL (70-100); SODIUM LEVEL 137 MEQ/L (136-145)
[2018-03-31] MEDS: HEPARIN SOD (PORCINE) 5000 UNITS/ML VIAL SC ×3 (06:06→21:11)
[2018-03-31] MEDS: methylPREDNISolone INJ 125 MG/2 ML VIAL (J2930) IV ×3 (06:06→21:10)
[2018-03-31] MEDS: SYMBICORT 160/4.5MCG INHALER 6GM INH ×2 (07:53→20:58)
[2018-03-31] MEDS: NS 1,000 ML IV (08:37)
[2018-03-31] MEDS: GABAPENTIN 100 MG CAP PO ×2 (08:38→14:37)
[2018-03-31] MEDS: **hydrALAZINE** 50 MG TAB PO ×3 (08:38→21:09)
[2018-03-31] MEDS: PANTOPRAZOLE 40MG TAB (PROTONIX) PO (08:38)
[2018-03-31] MEDS: ASPIRIN 325 MG TAB PO (08:38)
[2018-03-31] MEDS: guaiFENesin ER 600 MG TAB PO ×2 (08:39→21:08)
[2018-03-31] MEDS: METOPROLOL TARTRATE 100 MG TAB PO ×2 (08:39→21:09)
[2018-03-31] MEDS: DOCUSATE SODIUM 100 MG CAP PO (08:39)
[2018-03-31] MEDS: ISOSORBIDE DIN. (ISORDIL) 5 MG TAB PO ×3 (08:39→21:09)
[2018-03-31] MEDS: SODIUM CHLORIDE 0.9% INJ 10 ML SYR IV (08:55)
[2018-03-31] MEDS: PHENYTOIN ER 100 MG CAP PO (08:56)
[2018-03-31 11:03] LABS: NT-PRO BNP 5561 PG/ML (<125)
[2018-03-31 12:27] LABS: BEDSIDE GLUCOSE 238 MG/DL (80-115)
[2018-03-31] MEDS: BRIMONIDINE 0.15% OPHTH SOLN 5 ML OU ×2 (13:28→21:11)
[2018-03-31] MEDS: CHLORASEPTIC SPRAY MT (13:28)
[2018-03-31 15:21] LABS: APPEARANCE, URINE CLEAR (CLEAR); BACTERIA, URINE AUTO NEGATIVE (NEGATIVE); BILIRUBIN, URINE AUTO NEGATIVE (NEGATIVE); BLOOD, URINE BLOOD NEGATIVE (NEGATIVE); COLOR, URINE YELLOW (YELLOW); GLUCOSE, URINE (UA) AUTO NEGATIVE (NEGATIVE); KETONE, URINE AUTO NEGATIVE (NEGATIVE); LEUKOCYTE ESTERASE, URINE AUTO NEGATIVE (NEGATIVE); NITRITE, URINE AUTO NEGATIVE (NEGATIVE); PROTEIN, URINE AUTO NEGATIVE (NEGATIVE); RBC, URINE AUTO 3 /HPF (0-3); SPECIFIC GRAVITY URINE AUTO 1.015 (1.002-1.035); SQUAMOUS EPITHELIAL CELL UR AU 1 /HPF (0-6); UROBILINOGEN, URINE AUTO 0.2 mg/dL (0.0-2.0); WBC, URINE AUTO 1 /HPF (0-3)
[2018-03-31 16:43] LABS: BEDSIDE GLUCOSE 238 MG/DL (80-115)
[2018-03-31 20:10] LABS: BEDSIDE GLUCOSE 303 MG/DL (80-115)
[2018-03-31] MEDS: ROSUVASTATIN 10 MG TAB (CRESTOR) PO (21:10)
[2018-04-01] MEDS: IPRATROPIUM 0.5MG/ALBUTEROL 2.5MG INH SOL UD 3ML (DUONEB)(J7620) NEB ×7 (01:02→23:52)
[2018-04-01] MEDS: methylPREDNISolone INJ 125 MG/2 ML VIAL (J2930) IV (05:58)
[2018-04-01] MEDS: LevoFLOXacin 750 MG TABLET PO (05:58)
[2018-04-01] MEDS: HEPARIN SOD (PORCINE) 5000 UNITS/ML VIAL SC ×3 (05:58→22:07)
[2018-04-01 05:59] LABS: HEMATOCRIT 27.5 % (36.0-47.0); HEMOGLOBIN 8.5 g/dl (12.0-15.5); MEAN CORPUSCULAR HEMOGLOBIN 28.7 pg (27.0-33.0); MEAN CORPUSCULAR HGB CONC 30.9 g/dl (32.0-36.5); MEAN CORPUSCULAR VOLUME 92.9 fl (80.0-96.0); PLATELET COUNT, AUTOMATED 267 10^3/uL (150-450); RED BLOOD COUNT 2.96 10^6/uL (4.00-5.40); RED CELL DISTRIBUTION WIDTH 14.9 % (11.5-14.5); WHITE BLOOD COUNT 5.7 10^3/uL (4.0-10.0)
[2018-04-01 06:03] LABS: ADD MANUAL DIFFER YES; DIFF SLIDE NUMBER 19; POS COUNT POS FLAG; POSITIVE MORPH POS FLAG
[2018-04-01 06:28] LABS: ATYPICAL LYMPH 1 % (0-5); BANDS 1 % (< 11); LYMPHOCYTES 24 % (16-52); METAMYELOCYTES 1 % (0-0); MONOCYTES 10 % (0-8); NEUTROPHILS 63 % (35-75)
[2018-04-01 06:29] LABS: ANION GAP 7 MEQ/L (8-16); BLOOD UREA NITROGEN 49 MG/DL (7-18); CARBON DIOXIDE LEVEL 33 MEQ/L (21-32); CHLORIDE LEVEL 97 MEQ/L (98-107); CREATININE FOR GFR 1.34 MG/DL (0.55-1.30); GLUCOSE, FASTING 220 MG/DL (70-100); PLATELET ESTIMATE NORMAL (NORMAL); POTASSIUM SERUM 3.4 MEQ/L (3.5-5.1); SODIUM LEVEL 137 MEQ/L (136-145)
[2018-04-01] MEDS: SYMBICORT 160/4.5MCG INHALER 6GM INH ×2 (07:11→20:35)
[2018-04-01] MEDS: HumaLOG INSULIN (NovoLOG) PER UNIT SC ×4 (09:47→21:26)
[2018-04-01] MEDS: PANTOPRAZOLE 40MG TAB (PROTONIX) PO (09:48)
[2018-04-01] MEDS: **hydrALAZINE** 50 MG TAB PO ×3 (09:48→21:25)
[2018-04-01] MEDS: ASPIRIN 325 MG TAB PO (09:48)
[2018-04-01] MEDS: LEVEMIR (INSULIN DETEMIR) 1 UNITS/0.01ML SC (09:48)
[2018-04-01] MEDS: guaiFENesin ER 600 MG TAB PO ×2 (09:48→21:26)
[2018-04-01] MEDS: POTASSIUM CHLORIDE 10% LIQ 20 MEQ/15 ML UDC PO (09:48)
[2018-04-01] MEDS: DOCUSATE SODIUM 100 MG CAP PO (09:49)
[2018-04-01] MEDS: ISOSORBIDE DIN. (ISORDIL) 5 MG TAB PO ×3 (09:49→21:25)
[2018-04-01] MEDS: METOPROLOL TARTRATE 100 MG TAB PO ×2 (09:49→21:26)
[2018-04-01] MEDS: GABAPENTIN 100 MG CAP PO ×2 (09:49→13:13)
[2018-04-01] MEDS: CHLORASEPTIC SPRAY MT ×2 (10:02→22:08)
[2018-04-01] MEDS: PHENYTOIN ER 100 MG CAP PO (10:02)
[2018-04-01] MEDS: ACETAMINOPHEN 500 MG TAB PO ×2 (11:47→21:26)
[2018-04-01] MEDS: SODIUM CHLORIDE 0.9% INJ 10 ML SYR IV ×2 (11:48→13:33)
[2018-04-01 12:12] LABS: BEDSIDE GLUCOSE 271 MG/DL (80-115)
[2018-04-01] MEDS ORDERED: LIDOCAINE 4% CREAM 5GM (LMX4) TOP (12:45)
[2018-04-01] MEDS: predniSONE 20 MG TAB PO (13:14)
[2018-04-01] MEDS: FUROSEMIDE 40 MG/4 ML VIAL (J1940) IV (13:18)
[2018-04-01] MEDS: BRIMONIDINE 0.15% OPHTH SOLN 5 ML OU ×2 (17:09→19:53)
[2018-04-01 17:52] LABS: BEDSIDE GLUCOSE 250 MG/DL (80-115)
[2018-04-01 21:23] LABS: BEDSIDE GLUCOSE 268 MG/DL (80-115)
[2018-04-01] MEDS: ROSUVASTATIN 10 MG TAB (CRESTOR) PO (21:25)
[2018-04-02 00:07] LABS: TRANSFERRIN 139 mg/dL (200-370)
[2018-04-02 00:07] LABS: SOLUBLE TRANSFERRIN RECEPTOR 19.7 nmol/L (12.2-27.3)
[2018-04-02] MEDS: FUROSEMIDE 40 MG/4 ML VIAL (J1940) IV (00:45)
[2018-04-02] MEDS: IPRATROPIUM 0.5MG/ALBUTEROL 2.5MG INH SOL UD 3ML (DUONEB)(J7620) NEB ×3 (04:14→12:14)
[2018-04-02] MEDS: HEPARIN SOD (PORCINE) 5000 UNITS/ML VIAL SC ×2 (05:34→13:34)
[2018-04-02 06:29] LABS: MEAN CORPUSCULAR HEMOGLOBIN 29.6 pg (27.0-33.0); MEAN CORPUSCULAR HGB CONC 30.8 g/dl (32.0-36.5); MEAN CORPUSCULAR VOLUME 96.3 fl (80.0-96.0); PLATELET COUNT, AUTOMATED 255 10^3/uL (150-450); RED CELL DISTRIBUTION WIDTH 15.5 % (11.5-14.5)
[2018-04-02 06:40] LABS: ANION GAP 7 MEQ/L (8-16); BLOOD UREA NITROGEN 41 MG/DL (7-18); CARBON DIOXIDE LEVEL 33 MEQ/L (21-32); CHLORIDE LEVEL 101 MEQ/L (98-107); CREATININE FOR GFR 1.15 MG/DL (0.55-1.30); GLOMERULAR FILTRATION RATE > 60.0 (>45); GLUCOSE, FASTING 143 MG/DL (70-100); POTASSIUM SERUM 3.7 MEQ/L (3.5-5.1); SODIUM LEVEL 141 MEQ/L (136-145)
[2018-04-02 06:44] LABS: ADD MANUAL DIFFER YES; DIFF SLIDE NUMBER 16; POS COUNT POS FLAG; POSITIVE MORPH POS FLAG
[2018-04-02 07:03] LABS: BANDS 1 % (< 11); EOSINOPHILS 1 % (0-5); LYMPHOCYTES 20 % (16-52); METAMYELOCYTES 3 % (0-0); MONOCYTES 14 % (0-8); MYELOCYTES 3 % (0-0); NEUTROPHILS 58 % (35-75)
[2018-04-02 07:04] LABS: ANISOCYTOSIS 1+; PLATELET ESTIMATE NORMAL (NORMAL)
[2018-04-02 07:05] LABS: HYPOCHROMASIA 1+
[2018-04-02] MEDS: SYMBICORT 160/4.5MCG INHALER 6GM INH (07:14)
[2018-04-02] MEDS: LEVEMIR (INSULIN DETEMIR) 1 UNITS/0.01ML SC (08:19)
[2018-04-02] MEDS: HumaLOG INSULIN (NovoLOG) PER UNIT SC ×2 (08:19→13:34)
[2018-04-02] MEDS: PANTOPRAZOLE 40MG TAB (PROTONIX) PO (08:20)
[2018-04-02] MEDS: PHENYTOIN ER 100 MG CAP PO (08:20)
[2018-04-02] MEDS: **hydrALAZINE** 50 MG TAB PO (08:21)
[2018-04-02] MEDS: ASPIRIN 325 MG TAB PO (08:21)
[2018-04-02] MEDS: predniSONE 20 MG TAB PO (08:21)
[2018-04-02] MEDS: ISOSORBIDE DIN. (ISORDIL) 5 MG TAB PO (08:21)
[2018-04-02] MEDS: GABAPENTIN 100 MG CAP PO ×2 (08:21→13:34)
[2018-04-02] MEDS: DOCUSATE SODIUM 100 MG CAP PO (08:22)
[2018-04-02] MEDS: SODIUM CHLORIDE 0.9% INJ 10 ML SYR IV (08:22)
[2018-04-02] MEDS: guaiFENesin ER 600 MG TAB PO (08:22)
[2018-04-02] MEDS: METOPROLOL TARTRATE 100 MG TAB PO (08:22)
[2018-04-02] MEDS: ACETAMINOPHEN 500 MG TAB PO (08:26)
[2018-04-02] MEDS ORDERED: IRON SUCROSE 100MG 5ML VIAL (J1756 PER 1MG) IV (09:45)
[2018-04-02] MEDS: IRON SUCROSE 200 MG in NS 100 ML IV (10:59)
[2018-04-02] MEDS ORDERED: IRON SUCROSE 100 MG in NS 100 ML OVER 1 HR IV (11:00)
[2018-04-02 11:44] LABS: BEDSIDE GLUCOSE 232 MG/DL (80-115)
[2018-04-02] MEDS: SPIRONOLACTONE 25 MG TAB PO (13:34)
[2018-04-02] MEDS: BRIMONIDINE 0.15% OPHTH SOLN 5 ML OU (13:35)
[2018-04-02] MEDS ORDERED: TORSEMIDE 20 MG TAB PO (17:00)
== END 2018-04-02 14:45 | DRG 193 ==
LOC: M ED 12:54 → M MSPAV 04-01 21:40 → M ED INP 19:41 → M PCU 22:46
DX: J12.1 Respiratory syncytial virus pneumonia (principal); J96.21 Acute and chronic respiratory failure with hypoxia; J96.22 Acute and chronic respiratory failure with hypercapnia; I50.33 Acute on chronic diastolic (congestive) heart failure; G93.41 Metabolic encephalopathy; J44.1 Chronic obstructive pulmonary disease with (acute) exacerbation; J44.0 Chronic obstructive pulmonary disease with (acute) lower respiratory infection; I82.B21 Chronic embolism and thrombosis of right subclavian vein; I69.354 Hemiplegia and hemiparesis following cerebral infarction affecting left non-dominant side; Z68.41 Body mass index [BMI] 40.0-44.9, adult; I13.0 Hypertensive heart and chronic kidney disease with heart failure and stage 1 through stage 4 chronic kidney disease, or unspecified chronic kidney disease; N17.9 Acute kidney failure, unspecified; E66.01 Morbid (severe) obesity due to excess calories; N18.2 Chronic kidney disease, stage 2 (mild); G47.33 Obstructive sleep apnea (adult) (pediatric); E11.40 Type 2 diabetes mellitus with diabetic neuropathy, unspecified; I25.10 Atherosclerotic heart disease of native coronary artery without angina pectoris; Z85.3 Personal history of malignant neoplasm of breast; Z79.899 Other long term (current) drug therapy; Z88.8 Allergy status to other drugs, medicaments and biological substances; Z88.2 Allergy status to sulfonamides; Z87.891 Personal history of nicotine dependence; E78.5 Hyperlipidemia, unspecified; K57.30 Diverticulosis of large intestine without perforation or abscess without bleeding; G40.909 Epilepsy, unspecified, not intractable, without status epilepticus; Z79.82 Long term (current) use of aspirin; Z79.4 Long term (current) use of insulin; I27.20 Pulmonary hypertension, unspecified; I27.81 Cor pulmonale (chronic); D86.9 Sarcoidosis, unspecified; E87.6 Hypokalemia; D50.9 Iron deficiency anemia, unspecified

== ENCOUNTER → 2018-05-12 | Outpatient (REF) | payer MEDICARE, MEDICAID ==
[~2018-05-12] MED LIST changes: +ACE65ERTAB PO; +ACET1TAB55 PO; +ACET500T15 PO; -AMLO5TAB2 PO; +AMLO5TAB6 PO; +AMOX875T2 PO; +ANEC4CRE3 TOP; +ASPE16CR TOP; +BISA10SU4 PR; +CETI10TA PO; +COLA100C5 PO; -DRIS50002 PO; +DRIS50003 PO; +ENEMENE6 PR; +GABA-1171 PO; +GABA-843 PO; +GLUC1KIT IM; +GUAISYP5 PO; -IBUP200C10 PO; +IBUP200C25 PO; +INSUHUMDS SC; +IRBE150T12 PO; +ISOS5TA PO; +KLOR10TA76 PO; -LASI40TA PO; +LASI40TA9 PO; -LASI80TA PO; +LASI80TA3 PO; +LEVA1TAB2 PO; +LORA10CA PO; -LOSA100T36 PO; +LOSA100T50 PO; +METF500T13 PO; +MILK120011 PO; +MIRA3350 PO; +MUCI600T31 PO; +MUSC1CRE TOP; +NEUR100C PO; +POLY1POW38 PO; -POLY33502 PO; -POTA10CA PO; +POTA1TAB23 PO; -ROSU20TA PO; +ROSU20TA4 PO; +SALI0.6528; +SENN1TAB10 PO; +SPIR-10 PO; +TORS20TA2 PO; +TUMS500C PO; +VALS1TAB48 PO
[2018-05-12 10:57] LABS: HEP C VIRUS AB INDEX SOURCE PT 0.1 INDEX (0.0-0.8); HEPATITIS B SURFACE ANTIGEN NEGATIVE (NEGATIVE)
== END ==
LOC: SKLAB2 05-11 13:22
PROVIDERS: ATTEND Student in an Organized Health Care Education/Training Program
DX: Z77.21 Contact with and (suspected) exposure to potentially hazardous body fluids (principal); W46.1XXA Contact with contaminated hypodermic needle, initial encounter

== ENCOUNTER → 2018-05-17 | Outpatient (REF) | payer MEDICARE, MEDICAID ==
[2018-05-17 08:00] LABS: HEMATOCRIT 26.6 % (36.0-47.0); HEMOGLOBIN 7.9 g/dl (12.0-15.5); MEAN CORPUSCULAR HEMOGLOBIN 30.4 pg (27.0-33.0); MEAN CORPUSCULAR HGB CONC 29.7 g/dl (32.0-36.5); MEAN CORPUSCULAR VOLUME 102.3 fl (80.0-96.0); PLATELET COUNT, AUTOMATED 275 10^3/uL (150-450); WHITE BLOOD COUNT 5.2 10^3/uL (4.0-10.0)
[2018-05-17 08:31] LABS: ALBUMIN 3.2 GM/DL (3.2-5.2); ALT/SGPT 31 U/L (12-78); BILIRUBIN,TOTAL 0.2 MG/DL (0.2-1.0); BLOOD UREA NITROGEN 49 MG/DL (7-18); CALCIUM LEVEL 8.2 MG/DL (8.8-10.2); CARBON DIOXIDE LEVEL 36 MEQ/L (21-32); CHLORIDE LEVEL 102 MEQ/L (98-107); CREATININE FOR GFR 0.89 MG/DL (0.55-1.30); GLOMERULAR FILTRATION RATE > 60.0 (>45); GLUCOSE, FASTING 165 MG/DL (70-100); IRON (FE) 43 UG/DL (50-170); PERCENT SATURATION 22.6 % (13.2-45.0); POTASSIUM SERUM 4.5 MEQ/L (3.5-5.1); SODIUM LEVEL 141 MEQ/L (136-145); TOTAL IRON BINDING CAPACITY 190 UG/DL (250-450); TOTAL PROTEIN 6.2 GM/DL (6.4-8.2)
== END ==
LOC: SKLAB2 07:00
PROVIDERS: ATTEND Internal Medicine
DX: D64.9 Anemia, unspecified (principal); I50.9 Heart failure, unspecified; E11.9 Type 2 diabetes mellitus without complications; I11.0 Hypertensive heart disease with heart failure

== ENCOUNTER → 2018-05-24 | Outpatient (REF) | payer MEDICARE, MEDICAID | LOC: SKLAB2 07:00 | PROVIDERS: ATTEND Internal Medicine | DX: Z51.81 Encounter for therapeutic drug level monitoring (principal); Z79.899 Other long term (current) drug therapy ==

== ENCOUNTER → 2018-06-21 | Outpatient (REF) ==
[2018-06-21 16:35] LABS: HEMATOCRIT 26.3 % (36.0-47.0); HEMOGLOBIN 7.5 g/dl (12.0-15.5); MEAN CORPUSCULAR HEMOGLOBIN 28.7 pg (27.0-33.0); MEAN CORPUSCULAR HGB CONC 28.5 g/dl (32.0-36.5); MEAN CORPUSCULAR VOLUME 100.8 fl (80.0-96.0); PLATELET COUNT, AUTOMATED 268 10^3/uL (150-450); RED BLOOD COUNT 2.61 10^6/uL (4.00-5.40)
[2018-06-21 16:56] LABS: ERYTHROCYTE SEDIMENTATION RATE 56 mm/hr (0-30)
== END ==
LOC: SKLAB2 13:33 → SKLAB7 13:33
PROVIDERS: ATTEND Internal Medicine
DX: R60.9 Edema, unspecified (principal)

== ENCOUNTER → 2018-06-22 | Outpatient (REF) | payer MEDICARE, MEDICAID ==
[2018-06-22 15:06] LABS: ALBUMIN 2.8 GM/DL (3.2-5.2); BLOOD UREA NITROGEN 34 MG/DL (7-18); CARBON DIOXIDE LEVEL 37 MEQ/L (21-32); CHLORIDE LEVEL 101 MEQ/L (98-107); CREATININE FOR GFR 0.97 MG/DL (0.55-1.30); GLOMERULAR FILTRATION RATE > 60.0 (>45); GLUCOSE, FASTING 165 MG/DL (70-100); NT-PRO BNP 6241 PG/ML (<125); PHOSPHORUS LEVEL 3.4 MG/DL (2.5-4.9); POTASSIUM SERUM 4.5 MEQ/L (3.5-5.1); SODIUM LEVEL 142 MEQ/L (136-145)
== END ==
LOC: SKLAB2 13:35
PROVIDERS: ATTEND Internal Medicine
DX: I50.9 Heart failure, unspecified (principal)

== ENCOUNTER → 2018-06-25 | Outpatient (REF) | payer MEDICARE, MEDICAID ==
[2018-06-25 11:21] LABS: ALBUMIN 3.1 GM/DL (3.2-5.2); BLOOD UREA NITROGEN 35 MG/DL (7-18); CALCIUM LEVEL 8.2 MG/DL (8.8-10.2); CARBON DIOXIDE LEVEL 40 MEQ/L (21-32); CHLORIDE LEVEL 100 MEQ/L (98-107); CREATININE FOR GFR 1.01 MG/DL (0.55-1.30); GLOMERULAR FILTRATION RATE > 60.0 (>45); GLUCOSE, FASTING 119 MG/DL (70-100); NT-PRO BNP 7196 PG/ML (<125); SODIUM LEVEL 143 MEQ/L (136-145)
== END ==
LOC: SKLAB2 10:27
PROVIDERS: ATTEND Internal Medicine
DX: N18.9 Chronic kidney disease, unspecified (principal)

== ENCOUNTER 2018-06-30 17:32 | Emergency (ER) | payer MEDICARE, MEDICAID ==
[~2018-06-30 17:32] MED LIST changes: -/ADVA50050; -/DULO30CA OR; -/IPRA3SP; -/MOXI40TA; -/PANT40TA; -/PANT40TA OR; -/QUIN10TA; +ACCU1TAB; -ACEP650S PR; -ACET50TA PO; +ADVA1AER2; +ASPI-1 PO; -ASPI1TAB PO; -ASPI325T PO; +ASPI81TA26 PO; +ATRO1SOL13; +AVEL1TAB2; -CYCL5TA PO; +CYCL5TAB5 PO; +CYMB1CAP5 OR; +HYDR-3715 PO; +MAPA500T17 PO; -METO5TA PO; +NORC1TAB8 PO; -NORC7.5T35 PO; -NORCOTAB PO; +PRED-351 PO; -PRED10TA PO; +PROT1TAB2; +PROT1TAB2 OR; -SPIR50TA4 PO; -VALS1TAB48 PO; +VALS1TAB68 PO; -VITMTA PO
--- NOTE | 2018-06-30 18:32 | REP ---
Clinical: Altered mental status Comparison: 03/26/2018 . Findings: Age-related atrophy and microvascular ischemic changes are appreciated. The ventricles and sulci are symmetric. Alas-white differentiation is maintained. There is no evidence for acute intracranial hemorrhage, mass/mass effect, pathology or infarction. No extra-axial fluid collection. Calvarium is intact. Paranasal sinuses and mastoid air cells are clear. Impression: Age related atrophy and microvascular ischemic changes. No acute intracranial hemorrhage, infarction, or mass/mass effect. Electronically Signed by Guy Whitaker MD 06/30/2018 06:24 P
[2018-06-30] MEDS ORDERED: METAL LOCK LOOP XX ONE (18:34)
[2018-06-30 18:35] LABS: ABG BASE EXCESS 9.7 (-2.0-2.0); ABG HCO3 36.5 MEQ/L (22.0-26.0); ABG O2 SATURATION 84.9 % (95.0-99.0); ABG PARTIAL PRESSURE O2 50.4 mmHg (75.0-100.0); ABG STANDARD HCO3 33.3 MEQ/L (22.0-26.0); ABG TOTAL CO2 38.4 MEQ/L (23.0-31.0); ABG pH (ARTERIAL) 7.368 UNITS (7.350-7.450)
[2018-06-30 18:37] LABS: ABG PARTIAL PRESSURE CO2 64.8 mmHg (35.0-45.0)
--- NOTE | 2018-06-30 18:42 | REP ---
Clinical: Altered mental status. Comparison: 03/27/2018. Findings: Examination is severely limited by technique, underpenetration and positioning. Cardiomegaly and pulmonary vascular congestion as well as scattered atelectasis/infiltrates cannot be excluded. No definite effusion. No pneumothorax. Ulxynq-I-Kngb identified with tip in the SVC. Skeletal structures are intact. Impression: Stable cardiomegaly. Cannot exclude pulmonary vascular congestion as well as scattered infiltrate/atelectasis. Electronically Signed by Guy Whitaker MD 06/30/2018 06:33 P
[2018-06-30 19:19] LABS: BASO % 0.6 % (0.0-1.0); EOS # 0.2 10^3/uL (0.0-0.50); EOS % 3.1 % (0.0-3.0); HEMATOCRIT 24.6 % (36.0-47.0); HEMOGLOBIN 7.2 g/dl (12.0-15.5); LYMPH # 0.7 10^3/uL (1.5-4.5); LYMPH % 13.2 % (24.0-44.0); MEAN CORPUSCULAR HEMOGLOBIN 29.8 pg (27.0-33.0); MEAN CORPUSCULAR HGB CONC 29.3 g/dl (32.0-36.5); MEAN CORPUSCULAR VOLUME 101.7 fl (80.0-96.0); MONO # 0.7 10^3/uL (0.0-0.8); MONO % 12.7 % (0.0-5.0); NEUTROPHILS # 3.8 10^3/uL (1.8-7.7); PLATELET COUNT, AUTOMATED 269 10^3/uL (150-450); RED BLOOD COUNT 2.42 10^6/uL (4.00-5.40); WHITE BLOOD COUNT 5.4 10^3/uL (4.0-10.0)
[2018-06-30] MEDS ORDERED: INSUDET SC (19:25)
[2018-06-30] MEDS ORDERED: VITMTA PO (19:25)
[2018-06-30] MEDS ORDERED: SPIR50TA4 PO (19:28)
[2018-06-30] MEDS ORDERED: TORS100T PO (19:30)
[2018-06-30] MEDS ORDERED: ACEP650S PR (19:38)
[2018-06-30] MEDS ORDERED: METO5TA PO (19:38)
[2018-06-30 19:49] LABS: OSMOLALITY SERUM 318 MOSM/KG (280-301)
[2018-06-30 19:50] LABS: INFLUENZA A AMPLIFICATION NEGATIVE (NEGATIVE); INFLUENZA B AMPLIFICATION NEGATIVE (NEGATIVE)
[2018-06-30 19:58] LABS: ALT/SGPT 11 U/L (12-78); BILIRUBIN,DIRECT < 0.1 MG/DL (0.0-0.2); BILIRUBIN,TOTAL 0.2 MG/DL (0.2-1.0); BLOOD UREA NITROGEN 36 MG/DL (7-18); CALCIUM LEVEL 8.1 MG/DL (8.8-10.2); CARBON DIOXIDE LEVEL 39 MEQ/L (21-32); CHLORIDE LEVEL 98 MEQ/L (98-107); CPK CREATINE PHOSPHOKINASE 84 U/L (26-192); CREATININE FOR GFR 0.93 MG/DL (0.55-1.30); GLOMERULAR FILTRATION RATE > 60.0 (>45); GLUCOSE, FASTING 148 MG/DL (70-100); MB/CK RELATIVE INDEX 1.55 (< OR =4); NT-PRO BNP 6058 PG/ML (<125); PHENYTOIN (DILANTIN) 12.5 UG/ML (10.0-20.0); POTASSIUM SERUM 4.3 MEQ/L (3.5-5.1); SODIUM LEVEL 141 MEQ/L (136-145); TOTAL PROTEIN 6.2 GM/DL (6.4-8.2); TROPONIN I < 0.02 NG/ML (< 0.10)
--- NOTE | 2018-06-30 22:32 | REP ---
Clinical: Left upper extremity pain and swelling. Technique: Alas scale and color Doppler evaluation using linear high frequency transducer. Findings: Ultrasound examination of the left upper extremity deep venous structures including jugular, subclavian, axillary, brachial, basilic, and cephalic veins demonstrate normal flow characteristics. There is no evidence for deep venous thrombosis. Subcutaneous edema noted. Impression: No evidence for deep venous thrombosis left upper extremity . Electronically Signed by Guy Whitaker MD 06/30/2018 10:23 P
[2018-06-30] MEDS ORDERED: ISOVUE-370 76% 125ML VIAL (Q9967 PER ML) As Ordered ONE (22:39)
[2018-07-01 00:35] LABS: FREE T4 0.34 NG/DL (0.76-1.46)
--- NOTE | 2018-07-01 01:31 | REPVR ---
EXAM: CT Chest Without Contrast EXAM DATE/TIME: 06/30/18 (11:39pm) CLINICAL HISTORY: 67 year old female with SOB. Assess for CHF vs. infiltrate. TECHNIQUE: Imaging protocol: Axial computed tomography images of the chest without intravenous contrast. Coronal and sagittal reformatted images were created and reviewed. 3D rendering: MIP reconstructed images were created and reviewed. Radiation optimization: All CT scans at this facility use at least one of these dose optimization techniques: automated exposure control; mA and/or kV adjustment per patient size (includes targeted exams where dose is matched to clinical indication); or iterative reconstruction. COMPARISON: CT CHEST of 03/26/18 FINDINGS: Lungs: Mild streaky bibasilar parenchymal changes. Minimal left pleural effusion. Small right pleural effusion. Bibasilar atelectasis. No consolidation. Pleural space: No pneumothorax. Small right pleural effusion. Minimal left effusion. Heart: Cardiomegaly. No pericardial effusion. Aorta: Normal. No aortic aneurysm. Lymph nodes: Unremarkable. No enlarged lymph nodes. Bones/joints: Unremarkable. No acute fracture. Soft tissues: Unremarkable. Upper abdomen: Left adrenal mass (2 cm size) (stable). Other findings: Right-sided subclavian venous catheter, terminating at the atrio-caval junction level. IMPRESSION: Mild streaky bibasilar lung changes. Small right pleural effusion. Minimal left pleural effusion. Minimal bibasilar atelectasis. Stable left adrenal mass (2 cm size) (probable benign adenoma). See additional comments above. Electronically signed by: Amee Mcdaniel On 07/01/2018 01:30:49 AM
[2018-07-01 02:15] VITALS: BP 147/67
--- NOTE | 2018-07-01 06:28 | ED PDOC ---
Post-Departure Follow-Up dr colón faxed formal report of ct chest for fu Chava Tabor MD Jul 01, 2018 06:28
--- NOTE | 2018-07-01 10:20 | ECGEPIP ---
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
== END 2018-07-01 02:47 | disposition home or self-care (01) ==
LOC: EDBD 17:32 → M ED 17:32
DX: N18.3 Chronic kidney disease, stage 3 (moderate) (principal); R60.0 Localized edema; D63.8 Anemia in other chronic diseases classified elsewhere; I44.0 Atrioventricular block, first degree; E11.9 Type 2 diabetes mellitus without complications; I50.9 Heart failure, unspecified; J44.9 Chronic obstructive pulmonary disease, unspecified; K21.9 Gastro-esophageal reflux disease without esophagitis; G81.92 Hemiplegia, unspecified affecting left dominant side; G47.33 Obstructive sleep apnea (adult) (pediatric); D86.9 Sarcoidosis, unspecified; E66.8 Other obesity; Z79.899 Other long term (current) drug therapy; Z79.4 Long term (current) use of insulin; Z79.82 Long term (current) use of aspirin; Z99.81 Dependence on supplemental oxygen; Z99.89 Dependence on other enabling machines and devices; Z88.1 Allergy status to other antibiotic agents; Z88.2 Allergy status to sulfonamides; Z88.5 Allergy status to narcotic agent; Z88.8 Allergy status to other drugs, medicaments and biological substances

== ENCOUNTER → 2018-06-30 | Outpatient (CLI) | payer MEDICARE, MEDICAID ==
[~2018-06-30] MED LIST changes: +ACEP650S PR; +METO5TA PO; +SPIR50TA4 PO; +VITMTA PO
--- NOTE | 2018-07-01 06:36 | ECHO ---
DATE OF PROCEDURE: 06/30/2018 DATE OF : 1950 AGE: 67 REFERRING PROVIDER: Dr. Caty Ho. PATIENT LOCATION: Outpatient. REASON FOR ECHOCARDIOGRAM: Pedal edema. 2D MEASUREMENTS: IVS: 1.2 cm LV: 5.0 cm LVPW: 1.1 cm LA: 4.3 cm Aorta: 2.7 cm IVC: 2.7 cm DOPPLER MEASUREMENTS: Peak velocity across the aortic valve: 1.4 m/s Peak velocity across the LVOT: 1.3 m/s Mitral E: 1.2 Mitral A: 0.35 Ratio 3.4 Maximum tricuspid valve velocity: 3.4 m/s 2D COMMENTS: 1. Normal left ventricular size, wall thickness and normal global left ventricular systolic function. The estimated left ventricular systolic ejection fraction is 60% to 65%. 2. Mildly enlarged left atrium. The right atrium and right ventricle appear to be mildly enlarged in limited views. 3. The atrial septum appeared to be normal without evidence of defect or shunt. 4. Normal aortic root. 5. Trace pericardial effusion noted in limited views, no evidence of cardiac tamponade. 6. Normal aortic valve and mitral valve, as well as the tricuspid valve and the pulmonic valve. The proximal pulmonary artery branches were not well visualized. 7. The inferior vena cava was dilated, central venous pressure might be elevated. DOPPLER: It detects trace mitral regurgitation and moderate tricuspid regurgitation. The calculated pulmonary artery systolic pressure varies between 40 to 50 mmHg. Assessment of the left ventricular diastolic function seems to be normal. IMPRESSION: 1. Normal global left ventricular systolic and diastolic function. 2. Mildly enlarged left atrium with trace mitral regurgitation. 3. Moderate tricuspid regurgitation with moderate pulmonary hypertension and dilated right heart chambers. 4. Trace pericardial effusion. 5. The inferior vena cava was dilated, central venous pressure is most likely elevated. 6. Prior and most recent tracing on 03/31/2018, no remarkable changes.
== END ==
LOC: M CARPUL 11:05
PROVIDERS: ATTEND Internal Medicine
DX: R60.0 Localized edema (principal)

== ENCOUNTER → 2018-07-01 | Outpatient (REF) | payer MEDICARE, MEDICAID ==
[~2018-07-01] MED LIST changes: +/ADVA50050; +/DULO30CA OR; +/IPRA3SP; +/MOXI40TA; +/PANT40TA; +/PANT40TA OR; +/QUIN10TA; -ACCU1TAB; +ACEP650S PR; +ACET50TA PO; -ADVA1AER2; -ASPI-1 PO; +ASPI1TAB PO; +ASPI325T PO; -ASPI81TA26 PO; -ATRO1SOL13; -AVEL1TAB2; +CYCL5TA PO; -CYCL5TAB5 PO; -CYMB1CAP5 OR; -HYDR-3715 PO; -MAPA500T17 PO; +METO5TA PO; -NORC1TAB8 PO; +NORC7.5T35 PO; +NORCOTAB PO; -PRED-351 PO; +PRED10TA PO; -PROT1TAB2; -PROT1TAB2 OR; +SPIR50TA4 PO; +VALS1TAB48 PO; -VALS1TAB68 PO; +VITMTA PO
[2018-07-01 08:23] LABS: ALBUMIN 3.2 GM/DL (3.2-5.2); BLOOD UREA NITROGEN 33 MG/DL (7-18); CALCIUM LEVEL 8.6 MG/DL (8.8-10.2); CARBON DIOXIDE LEVEL 40 MEQ/L (21-32); CHLORIDE LEVEL 98 MEQ/L (98-107); CREATININE FOR GFR 0.86 MG/DL (0.55-1.30); GLOMERULAR FILTRATION RATE > 60.0 (>45); GLUCOSE, FASTING 100 MG/DL (70-100); PHOSPHORUS LEVEL 4.5 MG/DL (2.5-4.9); POTASSIUM SERUM 3.9 MEQ/L (3.5-5.1); SODIUM LEVEL 142 MEQ/L (136-145)
== END ==
LOC: SKLAB2 07:04
PROVIDERS: ATTEND Internal Medicine
DX: N18.9 Chronic kidney disease, unspecified (principal)

== ENCOUNTER 2018-07-28 10:00 | Inpatient (IN) | payer MEDICARE, MEDICAID ==
[~2018-07-28] VITALS: Ht 188 cm; Wt 117.3 kg
[2018-07-28] MEDS: predniSONE 10 MG TAB PO SCH (09:00)
[2018-07-28] MEDS: METOPROLOL TARTRATE 100 MG TAB PO SCH ×2 (09:00→21:57)
[~2018-07-28 10:00] MED LIST changes: -/ADVA50050; -/DULO30CA OR; -/IPRA3SP; -/MOXI40TA; -/PANT40TA; -/PANT40TA OR; -/QUIN10TA; +ACCU1TAB; -ACET50TA PO; +ADVA1AER2; +ASPI-1 PO; -ASPI1TAB PO; -ASPI325T PO; +ASPI81TA26 PO; +ATRO1SOL13; +AVEL1TAB2; -CYCL5TA PO; +CYCL5TAB5 PO; +CYMB1CAP5 OR; +HYDR-3715 PO; +MAPA500T17 PO; +NORC1TAB8 PO; -NORC7.5T35 PO; -NORCOTAB PO; +PRED-351 PO; -PRED10TA PO; +PROT1TAB2; +PROT1TAB2 OR; -VALS1TAB48 PO; +VALS1TAB68 PO
--- NOTE | 2018-07-28 11:19 | REP ---
CT Head without contrast HISTORY: Altered mental status COMPARISON: 06/30/2018 Areas of decreased attenuation are present in the right basal ganglia and thalamus. These represent old lacunar infarctions. Areas of decreased attenuation are present in the periventricular and subcortical white matter. This represents small-vessel ischemic disease. There is no intraparenchymal hemorrhage, acute infarct, mass or midline shift. The ventricular system and cortical sulci are dilated consistent with mild volume loss. There is no extra cerebral collection. There is no fracture. The visualized sinuses are clear. IMPRESSION: 1. Old right basal ganglia and thalamic lacunar infarctions. 2. Small vessel ischemic disease. 3. Mild volume loss. Electronically Signed by Prosper Winston MD 07/28/2018 11:10 A
[2018-07-28 11:22] LABS: BASO % 0.5 % (0.0-1.0); EOS # 0.5 10^3/uL (0.0-0.50); EOS % 7.9 % (0.0-3.0); HEMATOCRIT 25.7 % (36.0-47.0); HEMOGLOBIN 7.4 g/dl (12.0-15.5); LYMPH # 1.2 10^3/uL (1.5-4.5); LYMPH % 17.8 % (24.0-44.0); MEAN CORPUSCULAR HEMOGLOBIN 30.6 pg (27.0-33.0); MEAN CORPUSCULAR HGB CONC 28.8 g/dl (32.0-36.5); MEAN CORPUSCULAR VOLUME 106.2 fl (80.0-96.0); MONO % 14.7 % (0.0-5.0); NEUTROPHILS # 3.8 10^3/uL (1.8-7.7); NEUTROPHILS % 58.5 % (36.0-66.0); PLATELET COUNT, AUTOMATED 292 10^3/uL (150-450); RED BLOOD COUNT 2.42 10^6/uL (4.00-5.40); WHITE BLOOD COUNT 6.5 10^3/uL (4.0-10.0)
[2018-07-28 11:56] LABS: ALBUMIN 2.9 GM/DL (3.2-5.2); ALT/SGPT 17 U/L (12-78); BILIRUBIN,DIRECT < 0.1 MG/DL (0.0-0.2); BILIRUBIN,TOTAL 0.3 MG/DL (0.2-1.0); BLOOD UREA NITROGEN 36 MG/DL (7-18); CALCIUM LEVEL 8.2 MG/DL (8.8-10.2); CARBON DIOXIDE LEVEL 41 MEQ/L (21-32); CHLORIDE LEVEL 102 MEQ/L (98-107); CPK CREATINE PHOSPHOKINASE 129 U/L (26-192); CREATININE FOR GFR 1.44 MG/DL (0.55-1.30); GLUCOSE, FASTING 139 MG/DL (70-100); MB/CK RELATIVE INDEX 1.01 (< OR =4); SODIUM LEVEL 144 MEQ/L (136-145); TROPONIN I < 0.02 NG/ML (< 0.10)
[2018-07-28] MEDS ORDERED: FUROSEMIDE 40 MG/4 ML VIAL (J1940) IV ONE (12:15)
[2018-07-28] MEDS ORDERED: ANEC4CRE3 TOP (13:20)
[2018-07-28] MEDS ORDERED: SENO8.6T5 PO (13:20)
[2018-07-28] MEDS ORDERED: TORS20TA2 PO (13:20)
[2018-07-28] MEDS ORDERED: MOM30SS PO (13:20)
[2018-07-28] MEDS ORDERED: FEVE650S3 PR (13:20)
[2018-07-28] MEDS ORDERED: SYST0.6S OU (13:20)
[2018-07-28 13:59] LABS: ABG HCO3 43.3 MEQ/L (22.0-26.0); ABG PARTIAL PRESSURE O2 101.1 mmHg (75.0-100.0); ABG STANDARD HCO3 39.7 MEQ/L (22.0-26.0); ABG TOTAL CO2 45.7 MEQ/L (23.0-31.0); ABG pH (ARTERIAL) 7.372 UNITS (7.350-7.450)
[2018-07-28 14:05] LABS: ABG PARTIAL PRESSURE CO2 76.3 mmHg (35.0-45.0)
[2018-07-28] MEDS ORDERED: ISOVUE-370 76% 100ML VIAL (Q9967) As Ordered ONE ×2 (14:25→16:27)
[2018-07-28] MEDS ORDERED: GLUCOSE 4 GM CHEW TABLET PO PRN (14:30)
[2018-07-28] MEDS ORDERED: GLUCAGON FOR INJ 1 MG VIAL (J1610) SC PRN (14:30)
[2018-07-28] MEDS ORDERED: BISACODYL 10 MG SUPP PR PRN (14:30)
[2018-07-28] MEDS ORDERED: DEXTROSE 50% 50 ML SYRINGE IV PRN (14:30)
[2018-07-28 14:48] LABS: FREE T4 0.33 NG/DL (0.76-1.46); NT-PRO BNP 8895 PG/ML (<125)
[2018-07-28] MEDS ORDERED: LEVOTHYROXINE 100 MCG (0.1MG) VIAL IV ONE (15:30)
[2018-07-28 15:33] LABS: ERYTHROCYTE SEDIMENTATION RATE 117 mm/hr (0-30)
[2018-07-28] MEDS: FUROSEMIDE injection 250 MG in D5W 225 ML IV SCH (16:00)
[2018-07-28] MEDS: **hydrALAZINE** 50 MG TAB PO SCH ×2 (16:00→21:59)
[2018-07-28] MEDS ORDERED: LIDOCAINE 2% MDV 20 ML VIAL As Ordered ONE (16:28)
[2018-07-28 16:38] LABS: CORTISOL BASELINE 14.1 UG/DL (4.3-22.4)
[2018-07-28 16:39] LABS: TOTAL T3 18.3 NG/DL (60.0-181.0)
--- NOTE | 2018-07-28 16:39 | REP ---
Chest x-ray: Two views AP supine and semi-erect lateral. History: Altered mental status. Comparison chest x-ray June 30, 2018. Findings: There is a right-sided Ihiszl-T-Ubha catheter with its tip in the expected location of the superior vena cava again noted. EKG electrodes are seen. Moderate cardiomegaly is again noted. Extensive bilateral perihilar alveolar opacity is again seen. There are air bronchograms. This pattern is more pronounced than on June 30, 2018. Infiltrate versus bilateral pulmonary edema. Lateral film there is suboptimal with motion artifact and poor level of inspiration. Impression: Itmkqz-W-Aoyy catheter. Cardiomegaly. Vascular congestion and diffuse alveolar opacity in the perihilar region. Infiltrate versus edema. This is somewhat more pronounced than on the prior study. Electronically Signed by Dre Florentino MD 07/28/2018 04:31 P
[2018-07-28] MEDS ORDERED: ISOVUE-300 61% 100ML VIAL (Q9967) As Ordered ONE (17:07)
[2018-07-28] MEDS: SYMBICORT 160/4.5MCG INHALER 6GM INH SCH ×2 (17:40→21:00)
[2018-07-28] MEDS: HumaLOG INSULIN (NovoLOG) PER UNIT SC SCH (18:00)
[2018-07-28 20:20] VITALS: BP 144/69
[2018-07-28] MEDS: HEPARIN SOD (PORCINE) 5000 UNITS/ML VIAL SQ SCH (21:54)
[2018-07-28] MEDS: ROSUVASTATIN 10 MG TAB (CRESTOR) PO SCH (22:01)
[2018-07-28] MEDS: BRIMONIDINE 0.15% OPHTH SOLN 5 ML OU SCH (22:09)
--- NOTE | 2018-07-28 22:14 | ECGEPIP ---
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
[2018-07-29] VITALS: BP 121/59
[2018-07-29] MEDS: HumaLOG INSULIN (NovoLOG) PER UNIT SC SCH ×4 (01:24→18:00)
[2018-07-29 04:00] VITALS: BP 118/57
[2018-07-29] MEDS: SODIUM CHLORIDE 0.9% INJ 10 ML SYR IV SCH ×2 (04:38→18:00)
[2018-07-29 05:07] LABS: HEMATOCRIT 22.9 % (36.0-47.0); MEAN CORPUSCULAR HEMOGLOBIN 30.3 pg (27.0-33.0); MEAN CORPUSCULAR HGB CONC 28.8 g/dl (32.0-36.5); PLATELET COUNT, AUTOMATED 261 10^3/uL (150-450); RED BLOOD COUNT 2.18 10^6/uL (4.00-5.40); WHITE BLOOD COUNT 6.4 10^3/uL (4.0-10.0)
[2018-07-29 05:10] LABS: HEMOGLOBIN 6.6 g/dl (12.0-15.5)
[2018-07-29 05:12] LABS: CALCIUM LEVEL 7.8 MG/DL (8.8-10.2); CREATININE FOR GFR 1.18 MG/DL (0.55-1.30); GLOMERULAR FILTRATION RATE 59.1 (>45); MAGNESIUM LEVEL 2.3 MG/DL (1.8-2.4); POTASSIUM SERUM 3.8 MEQ/L (3.5-5.1)
--- NOTE | 2018-07-29 06:21 | HPE ---
DATE OF ADMISSION: 07/28/2018 PRIMARY CARE PROVIDER: Dr. Caty Ho HISTORY OF PRESENT ILLNESS: This patient is a 67-year-old female with a past medical history significant for chronic obstructive pulmonary disease (COPD), type 2 diabetes, chronic kidney disease (CKD) stage III, obstructive sleep apnea (ANGELINA), noncompliant with continuous positive airway pressure (CPAP), history of seizures, stroke, gastroesophageal reflux disease (GERD), hypertension, right-sided heart failure, coronary artery disease, sarcoidosis, breast cancer, who was transferred from [facility] to [facility] on 07/28/2018 for altered mental status changes. At the time of encounter, patient is not fully oriented. Unable to obtain the full history. Information obtained from the provider, staff, and medical record. Patient was felt to have altered mental status changes. Patient was found unresponsive for unknown duration. Emergency medical service (EMS) was informed. Patient was brought to [facility]. During the initial evaluation, patient had difficulty maintaining alertness and awakeness. Patient has continued moaning and some discomfort. Chest x-ray was performed. Patient was found to have sign of fluid overload. One dose of Lasix was given to the patient, and hospitalist team was called for admission. PAST MEDICAL HISTORY: 1. COPD with a history of frequent hypoxic, hypercapnic respiratory failure. 2. Insulin-dependent diabetes with diabetic neuropathy and diabetic nephropathy. 3. CKD stage III. 4. ANGELINA, noncompliant with CPAP. 5. History of seizures. 6. History of stroke, resulting in left-sided weakness. 7. Gastroesophageal reflux disease 8. Morbid obesity. 9. Anemia of chronic disease. 10. Hypertension. 11. Right-sided heart failure. 12. Coronary artery disease. 13. Sarcoidosis. 14. History of breast cancer. 15. Hysterectomy. 16. Left-sided mastectomy. SOCIAL HISTORY: Unable to obtain. Patient is a [facility] resident. ALLERGIES: Per record, SULFA, ATORVASTATIN, BACLOFEN, CLINDAMYCIN, DULOXETINE, LEVETIRACETAM, LISINOPRIL, TOPIRAMATE, TRAMADOL. REVIEW OF SYSTEMS: Unable to obtain due to the patient's altered mental status. OBJECTIVE: VITAL SIGNS: Temperature is 97.2, pulse is 73, blood pressure is 127/95, pulse oximetry 100% with 2 liters nasal cannula. GENERAL: Patient has difficulty maintaining alertness and awakeness. Unable to assess orientation. Mild to moderate distress. HEENT: Very dry oral mucosa. Normocephalic, atraumatic. CARDIOVASCULAR: Positive S1, S2, regular rate. LUNGS: Positive lung crackles. Very significant decreased breath sounds, mainly in the lower base. No significant wheezes appreciated. ABDOMEN: Soft, obese, nontender. EXTREMITIES: Positive swelling in the peripheral extremities. NEUROLOGICAL: Unable to test. LABORATORY DATA: WBC 6.5, hemoglobin 7.4, hematocrit 25.7, platelet count is 292. Sodium is 144, potassium 4, chloride is 102, carbon dioxide 41, BUN 36, creatinine 1.44, GFR is 47, fasting glucose 139, calcium 8.2, total bilirubin is 0.3, direct bilirubin less than 0.1, AST 13, ALT 17, alkaline phosphatase 88, total CK 129, troponin I is less than 0.02, BNP is 8895, total protein 7, albumin 2.9, TSH 92. Urinalysis (UA) negative. ABG showed pH of 7.37, pCO2 of 76.3, pO2 is 101.1, hCO3 is 43.3. IMAGING STUDIES: CT of the head without contrast shows old right basal ganglia and thalamic lacunar infarctions. Small vessel ischemic disease. Mild volume loss. ASSESSMENT AND PLAN: 1. Altered mental status. Arterial blood gas (ABG) obtained and reviewed. Patient's pH demonstrated patient's blood gas is being compensated. UA negative. CT of the head is negative. Followup with phenytoin level. Followup with electroencephalogram (EEG). Patient does have significant low free T4 and elevated thyroid-stimulating hormone (TSH). Patient was given thyroid supplement. Patient does have elevated erythrocyte sedimentation rate (ESR) and C-reactive protein (CRP). Followup with blood cultures. We will also followup with respiratory panels to look for possible infectious etiologies. 2. Chronic obstructive pulmonary disease with frequent hypoxic, hypercapnic respiratory failure. ABG reviewed. Will titrate oxygen between 88-92%. During the physical exam, patient does not demonstrate any significant wheezes. Patient is in the emergency room; however, patient's oxygen has been between 98-100%, which may not be beneficial for the patient. Specified in order, patient's oxygen saturation needs to be maintained at appropriate range. 3. Right-sided heart failure with moderate pulmonary hypertension. Clinically, patient demonstrates sign of fluid overload. At baseline, patient is also taking the diuretic and patient has been taking a significant amount of the diuretic. Will place the patient on heparin drip. Nails catheter placement. Monitor input, output, and daily weight. 4. History of seizures. At baseline, patient is taking Dilantin. Will followup with Dilantin level. 5. Obstructive sleep apnea. Noncompliant with CPAP. Follow ANGELINA protocol orders. 6. History of stroke. Patient is on aspirin, Crestor. 7. Anemia of chronic disease. Currently, patient has hemoglobin of 7.4, which is close to the patient's baseline in the last week or so. Will continue to monitor patient for any symptoms. May consider blood transfusion if needed. 8. Coronary artery disease. On aspirin and statin. 9. History of sarcoidosis. On chronic steroids. 10. History of breast cancer, status post left-sided mastectomy. 11. Deep venous thrombosis (DVT) prophylaxis. Patient will be on heparin.
[2018-07-29] MEDS: SYMBICORT 160/4.5MCG INHALER 6GM INH SCH ×3 (07:46→21:00)
[2018-07-29 08:00] VITALS: BP 124/65
[2018-07-29] MEDS: PANTOPRAZOLE 40MG TAB (PROTONIX) PO SCH ×2 (08:17→09:30)
[2018-07-29] MEDS: ASPIRIN 325 MG TAB PO SCH ×2 (08:17→09:30)
[2018-07-29] MEDS: PHENYTOIN ER 100 MG CAP PO SCH ×2 (08:17→09:30)
[2018-07-29] MEDS: predniSONE 10 MG TAB PO SCH ×2 (08:17→09:30)
[2018-07-29] MEDS: METOPROLOL TARTRATE 100 MG TAB PO SCH ×3 (08:17→21:41)
[2018-07-29] MEDS: SPIRONOLACTONE 50 MG TAB PO SCH ×2 (08:17→09:30)
[2018-07-29] MEDS: SENOKOT S TAB PO SCH ×2 (08:17→09:30)
[2018-07-29] MEDS: BRIMONIDINE 0.15% OPHTH SOLN 5 ML OU SCH ×3 (08:18→21:45)
[2018-07-29] MEDS: **hydrALAZINE** 50 MG TAB PO SCH ×4 (08:18→21:41)
--- NOTE | 2018-07-29 09:01 | REP ---
CT pulmonary angiogram: With IV contrast. History: Altered mental status. Comparison studies: Comparison noncontrast chest CT study June 30, 2018. Contrast dose: 75 ML of Isovue [address] technique: Helical scanning is acquired and overlapping 1.5 mm and contiguous 3 mm axial images are reformatted. In addition, maximum intensity projection and multiplanar re-formation images are generated in sagittal and coronal imaging projections. CT pulmonary angiographic findings: There is good opacification of the pulmonary arterial tree. There is no CT evidence of pulmonary embolus. The central pulmonary arteries are somewhat dilated raising the question of pulmonary arterial hypertension. There are small bilateral pleural effusions. The thoracic aorta shows no evidence of aneurysm or dissection. There is a small amount of pericardial fluid. Cardiomegaly is observed. There is a right-sided Vbacll-T-Tfrj catheter. There is a small left adrenal nodule , 2.3 cm in diameter. This measured 2.1 cm in diameter on May 27, 2015 prior study. It is consistent with benign adenoma. The visualized upper abdominal structures are otherwise unremarkable. The lungs are somewhat under aerated and there are coarse linear plate-like atelectasis changes in the lower lobes and in the right upper lobe. Hazy parenchymal opacity in the perihilar regions may reflect mild pulmonary edema CHF. Findings are somewhat more pronounced than on the June 30, 2018 prior study. Impression: No CT evidence of pulmonary embolus. Prominent central pulmonary arteries consistent with pulmonary arterial hypertension. Cardiomegaly. Small bilateral pleural effusions and small pericardial fluid. Bilateral discoid atelectatic changes and poor level of inspiration. Question edema. Electronically Signed by Dre Florentino MD 07/29/2018 08:53 A
[2018-07-29] MEDS: FUROSEMIDE injection 250 MG in D5W 225 ML IV SCH (09:37)
[2018-07-29 10:41] LABS: FREE THYROXINE INDEX 0.7 % (1.3-4.8); THYROID STIMULATING HORMONE 80.6 uIU/ML (0.358-3.740); THYROXINE (T4) 2.2 UG/DL (4.5-12.0)
[2018-07-29 12:00] VITALS: BP 129/64
[2018-07-29 16:00] VITALS: BP 132/65
[2018-07-29] MEDS: ACETAMINOPHEN TAB 650MG DOSE (2X325MG) PO PRN (18:34)
[2018-07-29] MEDS: LEVOTHYROXINE 100 MCG (0.1MG) VIAL IV SCH (18:58)
--- NOTE | 2018-07-29 19:13 | IPN ---
DATE: 07/29/2018 SUBJECTIVE: Patient seen and examined in the room today. Patient continues to show some sign of confusion. Patient still requires 1 liter oxygen support. Patient still demonstrates fluid overload. Patient continues to complain of significant pain in the lower extremity. OBJECTIVE: VITAL SIGNS: Temperature 98, pulse 65, respirations 12, blood pressure 124/65, pulse ox 100% on 1 liter nasal cannula. GENERAL: Patient is alert and awake but not fully oriented. HEENT: Normocephalic atraumatic. Extraocular muscles grossly intact. CARDIOVASCULAR: Distant heart sound positive S1, S2 regular rate. LUNGS: Positive lung crackles. Decreased lung sounds. No significant wheezes. ABDOMEN: Soft and nontender and bowel sounds present. EXTREMITIES: Positive edema mainly in the dependant area. LABORATORY DATA: WBC 6.5, hemoglobin 6.6, hematocrit 22.9, platelets up to 61, Sodium 145, potassium 3.8, chloride 100, carbon dioxide 42, BUN 33, creatinine 1.19, GFR 59.1, fasting glucose 118, calcium 7.8, magnesium 2.3, TSH 80.6. ASSESSMENT AND PLAN: 1. Altered mental status. Etiology unknown at this moment. We will continue to look for a source of mental status changes. Phenytoin level was within normal range. No significant electrolyte abnormalities. Patient was found to have significant anemia with a hemoglobin of 6.6. Packed red blood cell was ordered. Continue to monitor any active bleeding. Patient has a scheduled EEG for today. Patient continues receiving treatment for severe hypothyroidism. 2. COPD with frequent hypoxic hypercarbic failure. Patient is currently on oxygen. We will titrate oxygen between 88-92%. No sign of COPD exacerbation at this moment. 3. Right sided heart failure with some moderate pulmonary hypertension. Patient is on the Lasix drip. Continue to monitor input and output. 4. History of seizures. Dilantin level in the normal range. We will followup with an EEG. 5. ANGELINA noncompliant with the CPAP on ANGELINA protocol. 6. History of stroke on aspirin. 7. Anemia of chronic disease. Stool occult negative. Receive transfusion today. Will followup with hemoglobin and hematocrit. 8. Coronary artery disease on aspirin and statin. 9. History of sarcoidosis on chronic steroids. 10. History of breast cancer, status-post left sided mastectomy. 11. DVT prophylaxis. On heparin. MTDD
[2018-07-29 19:20] LABS: HEMATOCRIT 31.2 % (36.0-47.0); HEMOGLOBIN 9.5 g/dl (12.0-15.5)
[2018-07-29 20:00] VITALS: BP 151/77
[2018-07-29 20:03] LABS: FOLATE 18.9 NG/ML (>5.4)
[2018-07-29] MEDS: ROSUVASTATIN 10 MG TAB (CRESTOR) PO SCH (21:41)
[2018-07-29] MEDS: LEVEMIR (INSULIN DETEMIR) 1 UNITS/0.01ML SC SCH ×2 (21:53→21:54)
[2018-07-30] VITALS: BP 148/80
[2018-07-30 00:22] LABS: HEMATOCRIT 24.6 % (36.0-47.0)
[2018-07-30 00:29] LABS: HEMOGLOBIN 7.5 g/dl (12.0-15.5)
[2018-07-30 04:00] VITALS: BP 167/85
[2018-07-30] MEDS: FUROSEMIDE injection 250 MG in D5W 225 ML IV SCH (05:14)
[2018-07-30] MEDS: HumaLOG INSULIN (NovoLOG) PER UNIT SC SCH ×4 (06:00→17:11)
[2018-07-30] MEDS: SODIUM CHLORIDE 0.9% INJ 10 ML SYR IV SCH ×2 (06:41→18:35)
[2018-07-30 06:54] LABS: HEMATOCRIT 28.4 % (36.0-47.0); HEMOGLOBIN 8.6 g/dl (12.0-15.5); MEAN CORPUSCULAR HGB CONC 30.3 g/dl (32.0-36.5); PLATELET COUNT, AUTOMATED 273 10^3/uL (150-450); RED BLOOD COUNT 2.87 10^6/uL (4.00-5.40); WHITE BLOOD COUNT 6.8 10^3/uL (4.0-10.0)
[2018-07-30 07:26] LABS: BLOOD UREA NITROGEN 29 MG/DL (7-18); CALCIUM LEVEL 8.2 MG/DL (8.8-10.2); CARBON DIOXIDE LEVEL 43 MEQ/L (21-32); CHLORIDE LEVEL 100 MEQ/L (98-107); CREATININE FOR GFR 1.09 MG/DL (0.55-1.30); FREE T4 0.45 NG/DL (0.76-1.46); GLOMERULAR FILTRATION RATE > 60.0 (>45); GLUCOSE, FASTING 84 MG/DL (70-100); MAGNESIUM LEVEL 2.4 MG/DL (1.8-2.4); NT-PRO BNP 7615 PG/ML (<125); POTASSIUM SERUM 3.4 MEQ/L (3.5-5.1); SODIUM LEVEL 147 MEQ/L (136-145)
[2018-07-30] MEDS: SYMBICORT 160/4.5MCG INHALER 6GM INH SCH ×2 (07:50→20:06)
[2018-07-30 08:00] VITALS: BP 116/69
[2018-07-30 09:20] LABS: ABG HCO3 40.6 MEQ/L (22.0-26.0); ABG O2 SATURATION 99.5 % (95.0-99.0); ABG PARTIAL PRESSURE O2 189.4 mmHg (75.0-100.0); ABG STANDARD HCO3 37.7 MEQ/L (22.0-26.0); ABG TOTAL CO2 42.6 MEQ/L (23.0-31.0); ABG pH (ARTERIAL) 7.413 UNITS (7.350-7.450)
[2018-07-30 09:55] LABS: C REACTIVE PROTEIN QUANTITATIV 11.4 MG/DL (0.00-0.30)
[2018-07-30] MEDS: HEPARIN SOD (PORCINE) 5000 UNITS/ML VIAL SQ SCH ×2 (10:59→21:27)
[2018-07-30] MEDS: ASPIRIN 325 MG TAB PO SCH (11:00)
[2018-07-30] MEDS: LEVOTHYROXINE 100 MCG (0.1MG) VIAL IV SCH (11:00)
[2018-07-30] MEDS: PHENYTOIN ER 100 MG CAP PO SCH (11:00)
[2018-07-30] MEDS: PANTOPRAZOLE 40MG TAB (PROTONIX) PO SCH (11:01)
[2018-07-30] MEDS: predniSONE 10 MG TAB PO SCH (11:01)
[2018-07-30] MEDS: SENOKOT S TAB PO SCH (11:01)
[2018-07-30] MEDS: **hydrALAZINE** 50 MG TAB PO SCH ×3 (11:04→21:27)
[2018-07-30] MEDS: METOPROLOL TARTRATE 100 MG TAB PO SCH ×2 (11:05→21:26)
[2018-07-30] MEDS: SPIRONOLACTONE 50 MG TAB PO SCH (11:05)
[2018-07-30] MEDS: BRIMONIDINE 0.15% OPHTH SOLN 5 ML OU SCH ×2 (11:06→21:28)
[2018-07-30] MEDS ORDERED: PILL CRUSHER/CUTTER 1 EACH XX PRN (11:15)
[2018-07-30] MEDS: ACETAMINOPHEN TAB 650MG DOSE (2X325MG) PO PRN ×2 (11:21→17:30)
[2018-07-30 12:00] VITALS: BP 127/61
[2018-07-30 13:07] LABS: THYROID PEROXIDASE ANTIBODY < 28.0 U/ML (<60.0)
[2018-07-30 13:08] LABS: THYROGLOBULIN ANTIBODY 19.6 U/ML (<60.0)
[2018-07-30 16:00] VITALS: BP 132/82
--- NOTE | 2018-07-30 19:13 | IPNPDOC ---
Text Note Date of Service The patient was seen on 07/30/18. NOTE SUBJECTIVE: Patient is seen and examined in the room today. Patient still has significant confusion. Patient has difficulty remaining awake. OBJECTIVE: VITAL SIGNS: Listed below. GENERAL: Decreased alertness. No distress. HEENT: Normocephalic atraumatic. Extraocular muscles grossly intact. CARDIOVASCULAR: Distant heart sound positive S1, S2 regular rate. LUNGS: Positive lung crackles. Decreased lung sounds. No significant wheezes. ABDOMEN: Soft and nontender and bowel sounds present. EXTREMITIES: Positive edema mainly in the dependant area. LABORATORY DATA: Listed below. ASSESSMENT AND PLAN: #. Altered mental status. - No significant electrolyte abnormality. Normal ammonia level. Infectious workup is negative so far. EEG ordered but patient could not finished the study. - Repeated ABG reviewed. Continue oxygen titrating as tolerated. - Patient still has significant hypothyroidism. Continue IV Synthroid. #. COPD with frequent hypoxic hypercarbic failure. - Patient is currently on oxygen. We will titrate oxygen between 88-92%. No sign of COPD exacerbation at this moment. #. Right sided heart failure with some moderate pulmonary hypertension. - Patient is on the Lasix drip. Continue to monitor input and output. #. History of seizures. - Dilantin level in the normal range. #. ANGELINA noncompliant with the CPAP on ANGELINA protocol. #. History of stroke on aspirin. #. Anemia of chronic disease. - Stool occult negative. Receive transfusion today. Will followup with hemoglobin and hematocrit. #. Coronary artery disease on aspirin and statin. #. History of sarcoidosis on chronic steroids. #. History of breast cancer, status-post left sided mastectomy. #. DVT prophylaxis. On heparin. VS,Fishbone, I+O VS, Fishbone, I+O Laboratory Tests 07/29/18 18:57 07/29/18 23:54 07/30/18 06:39 Red Blood Count 2.87 L, Mean Corpuscular Volume 99.0 H, Mean Corpuscular Hemoglobin 30.0, Mean Corpuscular Hemoglobin Concent 30.3 L, Red Cell Distribution Width 16.0 H, Calcium Level 8.2 L Vital Signs Date Time Temp Pulse Resp B/P (MAP) Pulse Ox O2 Delivery O2 Flow Rate FiO2 07/30/18 17:29 138/82 4/26/19 16:00 98.6 76 16 94 0.5 07/29/18 19:00 Nasal Cannula I&O- Last 24 Hours up to 6 AM 07/30/18 06:00 Intake Total 800 ml Output Total 1430 ml Balance -630 ml DAKOTA PEREA DO Jul 30, 2018 19:13
[2018-07-30 20:00] VITALS: BP 146/63
[2018-07-30] MEDS: LEVEMIR (INSULIN DETEMIR) 1 UNITS/0.01ML SC SCH (21:00)
[2018-07-30] MEDS: ROSUVASTATIN 10 MG TAB (CRESTOR) PO SCH (21:26)
[2018-07-31] VITALS: BP 160/64
[2018-07-31] MEDS: ACETAMINOPHEN TAB 650MG DOSE (2X325MG) PO PRN ×3 (00:09→21:21)
[2018-07-31] MEDS: FUROSEMIDE injection 250 MG in D5W 225 ML IV SCH ×2 (00:12→17:23)
[2018-07-31 04:00] VITALS: BP 145/83
[2018-07-31 05:24] LABS: HEMATOCRIT 28.3 % (36.0-47.0); HEMOGLOBIN 8.5 g/dl (12.0-15.5); MEAN CORPUSCULAR HEMOGLOBIN 29.8 pg (27.0-33.0); MEAN CORPUSCULAR VOLUME 99.3 fl (80.0-96.0); PLATELET COUNT, AUTOMATED 262 10^3/uL (150-450); RED BLOOD COUNT 2.85 10^6/uL (4.00-5.40); WHITE BLOOD COUNT 6.8 10^3/uL (4.0-10.0)
[2018-07-31 05:44] LABS: BLOOD UREA NITROGEN 26 MG/DL (7-18); CALCIUM LEVEL 7.7 MG/DL (8.8-10.2); CARBON DIOXIDE LEVEL 42 MEQ/L (21-32); CHLORIDE LEVEL 100 MEQ/L (98-107); CREATININE FOR GFR 1.12 MG/DL (0.55-1.30); GLOMERULAR FILTRATION RATE > 60.0 (>45); GLUCOSE, FASTING 83 MG/DL (70-100); MAGNESIUM LEVEL 2.2 MG/DL (1.8-2.4); POTASSIUM SERUM 3.2 MEQ/L (3.5-5.1); SODIUM LEVEL 148 MEQ/L (136-145)
[2018-07-31] MEDS: HumaLOG INSULIN (NovoLOG) PER UNIT SC SCH ×4 (05:49→17:11)
[2018-07-31] MEDS: SODIUM CHLORIDE 0.9% INJ 10 ML SYR IV SCH ×2 (05:50→17:22)
[2018-07-31] MEDS: SYMBICORT 160/4.5MCG INHALER 6GM INH SCH ×2 (07:39→19:48)
[2018-07-31 08:00] VITALS: BP_SYST 122; BP_SYST 158; BP_DIAS 58; BP_DIAS 72
[2018-07-31 08:23] LABS: FREE T4 0.49 NG/DL (0.76-1.46); NT-PRO BNP 8307 PG/ML (<125)
[2018-07-31] MEDS: ASPIRIN 325 MG TAB PO SCH (09:02)
[2018-07-31] MEDS: **hydrALAZINE** 50 MG TAB PO SCH ×3 (09:02→21:18)
[2018-07-31] MEDS: PHENYTOIN ER 100 MG CAP PO SCH (09:02)
[2018-07-31] MEDS: LEVOTHYROXINE 100 MCG (0.1MG) VIAL IV SCH (09:03)
[2018-07-31] MEDS: SENOKOT S TAB PO SCH (09:03)
[2018-07-31] MEDS: SPIRONOLACTONE 50 MG TAB PO SCH (09:03)
[2018-07-31] MEDS: PANTOPRAZOLE 40MG TAB (PROTONIX) PO SCH (09:03)
[2018-07-31] MEDS: METOPROLOL TARTRATE 100 MG TAB PO SCH ×2 (09:03→21:19)
[2018-07-31] MEDS: predniSONE 10 MG TAB PO SCH (09:03)
[2018-07-31] MEDS: BRIMONIDINE 0.15% OPHTH SOLN 5 ML OU SCH ×2 (09:04→21:19)
[2018-07-31] MEDS: KCL 10MEQ/100ML SWI (KRUN) 10 MEQ in APPROPRIATE DILUENT 1 EA IV SCH ×3 (09:04→11:33)
[2018-07-31] MEDS: HEPARIN SOD (PORCINE) 5000 UNITS/ML VIAL SQ SCH ×2 (09:04→21:19)
--- NOTE | 2018-07-31 10:58 | CR ---
DATE OF CONSULTATION: 07/30/2018 REFERRING PHYSICIAN: Dr. Lisandra Spears REASON FOR CONSULTATION: Altered mental status. HISTORY OF PRESENT ILLNESS: Jeannette Cooney is a 67-year-old woman who was admitted at [facility] due to altered mental status and severe peripheral edema, hypothyroidism and respiratory failure. Patient has multiple chronic medical problems including chronic obstructive pulmonary disease (COPD), chronic kidney disease, stage III, obstructive sleep apnea with noncompliance to continuous positive airway pressure (CPAP) seizures, stroke, hypertension, right-sided heart failure, coronary artery disease, breast cancer, sarcoidosis, and lives at [facility]. Patient is not fully oriented during my visit with her. Patient's sisters were present in the room. They stated that she came to hospital because her arms and legs were swelling up and she had pain in her hip and generalized pain from her neuropathy. Patient has history of chronic headaches, neck and back pain. She states that she has itching throughout her body. She has mittens on her hands as she tries to pull on IV lines and EKG and telemetry leads. She appears slightly confused, although her sentences make sense and she answers questions reasonably. Patient is getting diuresed because of her anasarca. She was found to have hypercapnia with pCO2 76, which reduced to 65, with capital pH 7.3 and 7.4. She was found to have high thyroid-stimulating hormone (TSH) 80, which has decreased to 70.7. PAST MEDICAL HISTORY: COPD with hypoxic and hypercapnic respiratory failure, diabetic neuropathy, nephropathy and insulin-dependent diabetes with stage III kidney disease, obstructive sleep apnea, noncompliant with CPAP, seizures, stroke, acid reflux, obesity, hypertension, right-sided heart failure, coronary artery disease, sarcoidosis, breast cancer, hysterectomy, left-sided mastectomy. SOCIAL HISTORY: She denies smoking, alcohol or illicit drugs. She lives at [facility]. ALLERGIES: SULFA, LIPITOR, BACLOFEN, CLINDAMYCIN, CYMBALTA, KEPPRA, LISINOPRIL, TOPAMAX, TRAMADOL. FAMILY HISTORY: Noncontributory. REVIEW OF SYSTEMS: All systems were reviewed with patient and her sister and found to be noncontributory except as mentioned in history present illness. PHYSICAL EXAMINATION: Temperature 97, pulse 69, respiratory 16, blood pressure 127/61, 94% saturation on room air. Heart regular rate and rhythm. Lungs with crackles in the bases. Abdomen obese and distended. She has 2-3+ pedal edema in her feet and also edema in her hands. No signs of meningeal irritation. No rash. No musculoskeletal abnormalities. Patient is awake, although drowsy. She is oriented to name of city, person, place, hospital. She is unable to tell me day, date, month, year, name of president. She cannot do serial 7s. recall is 0/ at 5 minutes. Her speech is normal with normal comprehension and repetition. Extraocular muscles are intact. No facial weakness. Tongue and uvula are midline. No nystagmus. 4+/5 strength throughout in all extremities. Deep tendon flexes are absent. She has decreased cold pinprick vibration sensation throughout her body. Gait could not be tested. Plantars are mute. DIAGNOSTIC STUDIES: Her ESR is 60, hemoglobin 8.6 CRP 11.4, TSH 80. Arterial blood gas is described above. Serum ammonia is 20. Dilantin level is 15.4. Thyroid peroxidase and thyroglobulin antibodies are negative and within normal range. ASSESSMENT: 1. Most likely metabolic encephalopathy due to multiple factors including COPD and hypercapnic compensated respiratory failure, hypothyroidism and congestive heart failure with anasarca. 2. Diabetic peripheral neuropathy and chronic kidney disease. PLAN: 1. Continue levothyroxine 100 mcg daily for thyroid replacement therapy. 2. Continue diuresis per internal medicine for her generalized edema and congestive heart failure. 3. Abilify 2 mg by mouth daily. 4. MRI brain and EEG. 5. Continue Dilantin 600 mg by mouth daily. CURRENT MEDICATIONS: - aspirin 325 mg by mouth daily - Protonix - Dilantin 600 mg by mouth daily - spironolactone 50 mg by mouth daily - levothyroxine 100 mcg daily - insulin Levemir - Crestor 20 mg by mouth daily - hydralazine 1 mg by mouth three times a day - prednisone 10 mg by mouth daily - metoprolol 100 mg by mouth twice a day - neurostimulator intravenously
[2018-07-31 12:00] VITALS: BP 144/68
[2018-07-31 16:00] VITALS: BP 150/72
--- NOTE | 2018-07-31 17:26 | IPNPDOC ---
Text Note Date of Service The patient was seen on 07/31/18. NOTE SUBJECTIVE: Patient is seen and examined in the room today. Patient is more awake and alert this morning. Patient is able to answer some questions appropriately. Patient is able to follow commends. OBJECTIVE: VITAL SIGNS: Listed below. GENERAL: Decreased alertness. No distress. HEENT: Normocephalic atraumatic. Extraocular muscles grossly intact. CARDIOVASCULAR: Distant heart sound positive S1, S2 regular rate. LUNGS: Positive lung crackles. Decreased lung sounds. No significant wheezes. ABDOMEN: Soft and nontender and bowel sounds present. EXTREMITIES: Positive edema mainly in the dependant area. LABORATORY DATA: Listed below. ASSESSMENT AND PLAN: #. Altered mental status. - No significant electrolyte abnormality. Normal ammonia level. Infectious workup is negative so far. EEG ordered but patient could not finished the study. MRI ordered but patient could not fit into the MRI. - Repeated ABG reviewed. Continue oxygen titrating as tolerated. - Patient still has significant hypothyroidism. Continue IV Synthroid. #. COPD with frequent hypoxic hypercarbic failure. - Patient is currently on oxygen. We will titrate oxygen between 88-92%. No sign of COPD exacerbation at this moment. #. Right sided heart failure with some moderate pulmonary hypertension. - Patient is on the Lasix drip. Continue to monitor input and output. #. History of seizures. - Dilantin level in the normal range. #. ANGELINA noncompliant with the CPAP on ANGELINA protocol. #. History of stroke on aspirin. #. Anemia of chronic disease. - Stool occult negative. Receive transfusion today. Will followup with hemoglobin and hematocrit. #. Coronary artery disease on aspirin and statin. #. History of sarcoidosis on chronic steroids. #. History of breast cancer, status-post left sided mastectomy. #. DVT prophylaxis. On heparin. VS,Fishbone, I+O VS, Fishbone, I+O Laboratory Tests 07/31/18 05:04 Red Blood Count 2.85 L, Mean Corpuscular Volume 99.3 H, Mean Corpuscular Hemoglobin 29.8, Mean Corpuscular Hemoglobin Concent 30.0 L, Red Cell Distribution Width 16.1 H, Calcium Level 7.7 L Vital Signs Date Time Temp Pulse Resp B/P (MAP) Pulse Ox O2 Delivery O2 Flow Rate FiO2 07/31/18 16:37 0.5 07/31/18 16:00 97.5 72 15 150/72 (98) 100 07/31/18 12:00 Nasal Cannula I&O- Last 24 Hours up to 6 AM 07/31/18 06:00 Intake Total 186 ml Output Total 3300 ml Balance -3114 ml DAKOTA PEREA DO Jul 31, 2018 17:26
[2018-07-31 20:00] VITALS: BP 154/60
[2018-07-31] MEDS: LEVEMIR (INSULIN DETEMIR) 1 UNITS/0.01ML SC SCH (21:00)
[2018-07-31] MEDS: ROSUVASTATIN 10 MG TAB (CRESTOR) PO SCH (21:18)
[2018-08-01] VITALS (7 sets, daily range): BP systolic 118–155; BP diastolic 54–86
[2018-08-01] MEDS: SODIUM CHLORIDE 0.9% INJ 10 ML SYR IV SCH ×2 (05:11→18:01)
[2018-08-01 05:32] LABS: HEMATOCRIT 28.6 % (36.0-47.0); HEMOGLOBIN 8.9 g/dl (12.0-15.5); MEAN CORPUSCULAR HEMOGLOBIN 30.7 pg (27.0-33.0); MEAN CORPUSCULAR HGB CONC 31.1 g/dl (32.0-36.5); MEAN CORPUSCULAR VOLUME 98.6 fl (80.0-96.0); PLATELET COUNT, AUTOMATED 287 10^3/uL (150-450); WHITE BLOOD COUNT 8.2 10^3/uL (4.0-10.0)
[2018-08-01 05:59] LABS: CREATININE FOR GFR 1.23 MG/DL (0.55-1.30); FREE T4 0.53 NG/DL (0.76-1.46); GLOMERULAR FILTRATION RATE 56.3 (>45); MAGNESIUM LEVEL 2.1 MG/DL (1.8-2.4); POTASSIUM SERUM 3.2 MEQ/L (3.5-5.1); THYROID STIMULATING HORMONE 80.6 uIU/ML (0.358-3.740)
[2018-08-01] MEDS: HumaLOG INSULIN (NovoLOG) PER UNIT SC SCH ×4 (06:00→17:35)
[2018-08-01] MEDS: SENOKOT S TAB PO SCH (07:26)
[2018-08-01] MEDS: SYMBICORT 160/4.5MCG INHALER 6GM INH SCH ×2 (08:56→20:23)
[2018-08-01] MEDS ORDERED: POTASSIUM CHLORIDE 10 MEQ SR TABLET PO ONE (09:00)
[2018-08-01] MEDS: LEVOTHYROXINE 100 MCG (0.1MG) VIAL IV SCH (09:14)
[2018-08-01] MEDS: PHENYTOIN ER 100 MG CAP PO SCH (09:15)
[2018-08-01] MEDS: KCL 10MEQ/100ML SWI (KRUN) 10 MEQ in APPROPRIATE DILUENT 1 EA IV SCH ×2 (09:15→10:45)
[2018-08-01] MEDS: ASPIRIN 325 MG TAB PO SCH (09:16)
[2018-08-01] MEDS: ACETAMINOPHEN TAB 650MG DOSE (2X325MG) PO PRN (09:16)
[2018-08-01] MEDS: PANTOPRAZOLE 40MG TAB (PROTONIX) PO SCH (09:16)
[2018-08-01] MEDS: SPIRONOLACTONE 50 MG TAB PO SCH ×2 (09:17→11:48)
[2018-08-01] MEDS: predniSONE 10 MG TAB PO SCH (09:17)
[2018-08-01] MEDS: **hydrALAZINE** 50 MG TAB PO SCH ×3 (09:17→20:54)
[2018-08-01] MEDS: METOPROLOL TARTRATE 100 MG TAB PO SCH ×2 (09:17→20:54)
[2018-08-01] MEDS: BRIMONIDINE 0.15% OPHTH SOLN 5 ML OU SCH ×2 (09:17→20:55)
[2018-08-01] MEDS: HEPARIN SOD (PORCINE) 5000 UNITS/ML VIAL SQ SCH ×2 (09:18→20:54)
[2018-08-01 10:29] LABS: ABG BASE EXCESS 14.7 (-2.0-2.0); ABG HCO3 41.5 MEQ/L (22.0-26.0); ABG O2 SATURATION 91.1 % (95.0-99.0); ABG PARTIAL PRESSURE O2 64.5 mmHg (75.0-100.0); ABG STANDARD HCO3 38.3 MEQ/L (22.0-26.0); ABG TOTAL CO2 43.6 MEQ/L (23.0-31.0); ABG pH (ARTERIAL) 7.416 UNITS (7.350-7.450)
[2018-08-01 10:31] LABS: ABG PARTIAL PRESSURE CO2 66.1 mmHg (35.0-45.0)
[2018-08-01] MEDS: ARIPiprazole 2 MG TAB PO SCH (12:18)
--- NOTE | 2018-08-01 12:19 | REP ---
CT Head without contrast HISTORY: Altered mental status COMPARISON: 07/28/2018 Areas of decreased attenuation are present in the right basal ganglia and thalamus. These represent old lacunar infarctions. Areas of decreased attenuation are present in the periventricular and subcortical white matter. This represents small-vessel ischemic disease. There is no intraparenchymal hemorrhage, acute infarct, mass or midline shift. The ventricular system and cortical sulci are dilated consistent with mild volume loss. There is no extra cerebral collection. There is no fracture. The visualized sinuses are clear. IMPRESSION: 1. Old right basal ganglia and thalamic lacunar infarctions. 2. Small vessel ischemic disease. 3. Mild volume loss. Electronically Signed by Prosper Winston MD 08/01/2018 12:10 P
[2018-08-01] MEDS: FUROSEMIDE injection 250 MG in D5W 225 ML IV SCH (14:44)
--- NOTE | 2018-08-01 15:08 | IPNPDOC ---
Text Note Date of Service The patient was seen on 08/01/18. NOTE SUBJECTIVE: Patient is seen and examined in the room today. Patient has waxing and weaning of her mentation. Patient was able to answer some questions appropriately. OBJECTIVE: VITAL SIGNS: Listed below. GENERAL: Decreased alertness. No distress. HEENT: Normocephalic atraumatic. Extraocular muscles grossly intact. CARDIOVASCULAR: Distant heart sound positive S1, S2 regular rate. LUNGS: Positive lung crackles. Decreased lung sounds. No significant wheezes. ABDOMEN: Soft and nontender and bowel sounds present. EXTREMITIES: Positive edema. LABORATORY DATA: Listed below. ASSESSMENT AND PLAN: #. Altered mental status. - No significant electrolyte abnormality. Normal ammonia level. Infectious workup is negative so far. EEG ordered but patient could not finished the dy. MRI ordered but patient could not fit into the MRI. - Repeated ABG reviewed. Continue oxygen titrating as tolerated. - Patient still has significant hypothyroidism. Continue IV Synthroid. - Discussed with Neurology. Repeat CT head. Trial of abilify. EEG is not available during the . EEG on Thursday. #. COPD with frequent hypoxic hypercarbic failure. - Patient is currently on oxygen. We will titrate oxygen between 88-92%. No sign of COPD exacerbation at this moment. #. Right sided heart failure with some moderate pulmonary hypertension. - Patient is on the Lasix drip. Continue to monitor input and output. #. History of seizures. - Dilantin level in the normal range. #. ANGELINA noncompliant with the CPAP on ANGELINA protocol. #. History of stroke on aspirin. #. Anemia of chronic disease. - Stool occult negative. Receive transfusion today. Will followup with hemoglobin and hematocrit. #. Coronary artery disease on aspirin and statin. #. History of sarcoidosis on chronic steroids. #. History of breast cancer, status-post left sided mastectomy. #. DVT prophylaxis. On heparin. VS,Fishbone, I+O VS, Fishbone, I+O Laboratory Tests 08/01/18 05:12 Red Blood Count 2.90 L, Mean Corpuscular Volume 98.6 H, Mean Corpuscular He moglobin 30.7, Mean Corpuscular Hemoglobin Concent 31.1 L, Red Cell Distribution Width 16.0 H, Calcium Level 8.0 L Vital Signs Date Time Temp Pulse Resp B/P (MAP) Pulse Ox O2 Delivery O2 Flow Rate FiO2 08/01/18 14:44 91 0.5 08/01/18 12:00 98.4 64 16 122/60 (80) 08/01/18 05:00 Nasal Cannula I&O- Last 24 Hours up to 6 AM 08/01/18 06:00 Intake Total 2052 ml Output Total 2870 ml Balance -818 ml DAKOTA PEREA DO Aug 01, 2018 15:08
[2018-08-01] MEDS: LEVEMIR (INSULIN DETEMIR) 1 UNITS/0.01ML SC SCH (20:54)
[2018-08-01] MEDS: ROSUVASTATIN 10 MG TAB (CRESTOR) PO SCH (20:54)
[2018-08-02] VITALS (7 sets, daily range): BP systolic 124–191; BP diastolic 58–88
[2018-08-02] MEDS: SODIUM CHLORIDE 0.9% INJ 10 ML SYR IV SCH ×2 (05:24→18:10)
[2018-08-02] MEDS: HumaLOG INSULIN (NovoLOG) PER UNIT SC SCH ×5 (05:24→23:51)
[2018-08-02 05:30] LABS: HEMATOCRIT 26.7 % (36.0-47.0); HEMOGLOBIN 8.3 g/dl (12.0-15.5); MEAN CORPUSCULAR HEMOGLOBIN 30.5 pg (27.0-33.0); MEAN CORPUSCULAR HGB CONC 31.1 g/dl (32.0-36.5); MEAN CORPUSCULAR VOLUME 98.2 fl (80.0-96.0); PLATELET COUNT, AUTOMATED 255 10^3/uL (150-450); RED BLOOD COUNT 2.72 10^6/uL (4.00-5.40); WHITE BLOOD COUNT 7.1 10^3/uL (4.0-10.0)
[2018-08-02 06:07] LABS: CALCIUM LEVEL 7.7 MG/DL (8.8-10.2); CREATININE FOR GFR 1.2 MG/DL (0.55-1.30); FREE T4 0.52 NG/DL (0.76-1.46); MAGNESIUM LEVEL 2.2 MG/DL (1.8-2.4); POTASSIUM SERUM 3.2 MEQ/L (3.5-5.1); THYROID STIMULATING HORMONE 82.1 uIU/ML (0.358-3.740)
[2018-08-02] MEDS: SYMBICORT 160/4.5MCG INHALER 6GM INH SCH ×2 (07:27→20:30)
[2018-08-02] MEDS: FUROSEMIDE injection 250 MG in D5W 225 ML IV SCH (08:30)
[2018-08-02] MEDS: LEVOTHYROXINE 100 MCG (0.1MG) VIAL IV SCH (08:59)
[2018-08-02] MEDS: PHENYTOIN ER 100 MG CAP PO SCH (09:00)
[2018-08-02] MEDS ORDERED: POTASSIUM CHLORIDE 10 MEQ SR TABLET PO ONE (09:00)
[2018-08-02] MEDS: SPIRONOLACTONE 50 MG TAB PO SCH (09:00)
[2018-08-02] MEDS: ACETAMINOPHEN TAB 650MG DOSE (2X325MG) PO PRN ×2 (09:00→17:39)
[2018-08-02] MEDS: PANTOPRAZOLE 40MG TAB (PROTONIX) PO SCH (09:01)
[2018-08-02] MEDS: METOPROLOL TARTRATE 100 MG TAB PO SCH ×2 (09:01→20:34)
[2018-08-02] MEDS: predniSONE 10 MG TAB PO SCH (09:01)
[2018-08-02] MEDS: SENOKOT S TAB PO SCH (09:02)
[2018-08-02] MEDS: **hydrALAZINE** 50 MG TAB PO SCH ×3 (09:02→20:35)
[2018-08-02] MEDS: ARIPiprazole 2 MG TAB PO SCH (09:02)
[2018-08-02] MEDS: ASPIRIN 325 MG TAB PO SCH (09:02)
[2018-08-02] MEDS: HEPARIN SOD (PORCINE) 5000 UNITS/ML VIAL SQ SCH ×2 (09:02→20:34)
[2018-08-02] MEDS: KCL 10MEQ/100ML SWI (KRUN) 10 MEQ in APPROPRIATE DILUENT 1 EA IV SCH ×3 (09:03→11:20)
[2018-08-02] MEDS: BRIMONIDINE 0.15% OPHTH SOLN 5 ML OU SCH ×2 (13:11→20:35)
--- NOTE | 2018-08-02 17:12 | IPNPDOC ---
Text Note Date of Service The patient was seen on 08/02/18. NOTE SUBJECTIVE: Patient is seen and examined in the room today. Patient still has waxing and weaning of her mentation. Patient does not remember the place during the encounter. Patient thinks her swellings may be improving. OBJECTIVE: VITAL SIGNS: Listed below. GENERAL: Decreased alertness. No distress. HEENT: Normocephalic atraumatic. Extraocular muscles grossly intact. CARDIOVASCULAR: Distant heart sound positive S1, S2 regular rate. LUNGS: Positive lung crackles. Decreased lung sounds. No significant wheezes. ABDOMEN: Soft and nontender and bowel sounds present. EXTREMITIES: Positive edema. LABORATORY DATA: Listed below. ASSESSMENT AND PLAN: #. Altered mental status. - No significant electrolyte abnormality. Normal ammonia level. Infectious workup is negative so far. EEG ordered previously but patient could not finished the study. EEG reordered and patient is scheduled to have EEG today. MRI ordered but patient could not fit into the close MRI machine. Will check the schedule for open MRI. - Repeated ABG reviewed. Continue oxygen titrating as tolerated. - Patient still has significant hypothyroidism. Continue IV Synthroid. - Discussed with Neurology. Repeat CT head. Trial of abilify. #. Right sided heart failure with some moderate pulmonary hypertension. - Patient is on the Lasix drip. Edema is improving. Continue to monitor input and output. #. COPD with frequent hypoxic hypercarbic failure. - Patient is currently on oxygen. We will titrate oxygen between 88-92%. No sign of COPD exacerbation at this moment. #. History of seizures. - Dilantin level in the normal range. #. ANGELINA noncompliant with the CPAP on ANGELINA protocol. #. History of stroke on aspirin. #. Anemia of chronic disease. - Stool occult negative. Receive transfusion today. Will followup with hemoglobin and hematocrit. #. Coronary artery disease on aspirin and statin. #. History of sarcoidosis on chronic steroids. #. History of breast cancer, status-post left sided mastectomy. #. DVT prophylaxis. On heparin. VS,Fishbone, I+O VS, Fishbone, I+O Laboratory Tests 08/02/18 05:21 Red Blood Count 2.72 L, Mean Corpuscular Volume 98.2 H, Mean Corpuscular Hemoglobin 30.5, Mean Corpuscular Hemoglobin Concent 31.1 L, Red Cell Distribution Width 15.9 H, Calcium Level 7.7 L Vital Signs Date Time Temp Pulse Resp B/P (MAP) Pulse Ox O2 Delivery O2 Flow Rate FiO2 08/02/18 14:00 64 99 Nasal Cannula 0.5 08/02/18 13:00 98.4 22 168/77 (107) I&O- Last 24 Hours up to 6 AM 08/02/18 06:00 Intake Total 1470 ml Output Total 2650 ml Balance -1180 ml DAKOTA PEREA DO Aug 02, 2018 17:12
--- NOTE | 2018-08-02 18:53 | REP ---
BILATERAL UPPER EXTREMITY DUPLEX DOPPLER ARTERIAL AND VENOUS ULTRASOUND: Real-time ultrasound evaluation and duplex Doppler interrogation of bilateral upper extremity arterial and venous systems is performed to evaluate EV fistula placement. There is no evidence of deep venous thrombosis of the bilateral upper extremities. On the right the basilic vein measures 6 mm at the upper humerus, 7 mm at the lower humerus, 5 mm in the upper forearm and 2 mm in the lower forearm and wrist. The right cephalic vein measures 4 mm at the upper humerus, 3 mm at the lower humerus, 4 mm throughout the forearm and wrist. Median cubital vein measures 5 mm. Right upper extremity arterial structures demonstrate normal flow velocities and waveforms. Right axillary artery measures 7 mm, brachial artery 6 mm and the radial and ulnar arteries measure 3 mm. Left basilic vein measures 4 mm at the upper humerus, 3 mm at the lower humerus and 2 mm throughout the forearm and wrist. Left cephalic vein measures 4 mm at the level of the humerus, 5 mm in the upper forearm and 4 mm in the lower forearm and wrist. Median cubital vein measures 3 mm. Left upper extremity arterial structures demonstrate normal flow velocities and wave forms. Left axillary artery measures 6 mm, brachial artery 4 mm and radial and ulnar arteries 3 mm. Electronically Signed by Bello Alas MD 08/04/2018 10:11 A
[2018-08-02] MEDS: ROSUVASTATIN 10 MG TAB (CRESTOR) PO SCH (20:35)
[2018-08-02] MEDS: LEVEMIR (INSULIN DETEMIR) 1 UNITS/0.01ML SC SCH (21:00)
[2018-08-03 04:00] VITALS: BP 144/63
[2018-08-03] MEDS: HumaLOG INSULIN (NovoLOG) PER UNIT SC SCH ×3 (05:27→17:41)
[2018-08-03] MEDS: SODIUM CHLORIDE 0.9% INJ 10 ML SYR IV SCH ×2 (05:27→17:40)
[2018-08-03 05:43] LABS: HEMOGLOBIN 8.3 g/dl (12.0-15.5); MEAN CORPUSCULAR HEMOGLOBIN 30.1 pg (27.0-33.0); MEAN CORPUSCULAR HGB CONC 30.7 g/dl (32.0-36.5); MEAN CORPUSCULAR VOLUME 97.8 fl (80.0-96.0); PLATELET COUNT, AUTOMATED 256 10^3/uL (150-450); RED BLOOD COUNT 2.76 10^6/uL (4.00-5.40); WHITE BLOOD COUNT 5.8 10^3/uL (4.0-10.0)
[2018-08-03 06:23] LABS: BLOOD UREA NITROGEN 18 MG/DL (7-18); CALCIUM LEVEL 7.8 MG/DL (8.8-10.2); CARBON DIOXIDE LEVEL 43 MEQ/L (21-32); CHLORIDE LEVEL 96 MEQ/L (98-107); CREATININE FOR GFR 1.11 MG/DL (0.55-1.30); FREE T4 0.53 NG/DL (0.76-1.46); GLOMERULAR FILTRATION RATE > 60.0 (>45); GLUCOSE, FASTING 92 MG/DL (70-100); MAGNESIUM LEVEL 2.1 MG/DL (1.8-2.4); POTASSIUM SERUM 3.4 MEQ/L (3.5-5.1); SODIUM LEVEL 142 MEQ/L (136-145)
--- NOTE | 2018-08-03 06:52 | EEG ---
DATE OF STUDY: 08/02/2018 DIAGNOSIS: Altered mental status. EEG#: [id number] HISTORY: Jeannette Cooney is a 67-year-old woman who was admitted at [facility] due to congestive heart failure, chronic compensated respiratory failure, hypothyroidism, and altered mental status. The patient has history of seizures, breast cancer and sarcoidosis in the past. She is currently taking Dilantin, levothyroxine, spironolactone, aspirin, metoprolol, Protonix, hydralazine, prednisone, Abilify, Crestor, etc. TECHNICAL DESCRIPTION: This digital EEG was recorded by 21 scalp, ear and 2 EKG electrodes and was reviewed in bipolar and referential montages following reformatting in 10-20 international electrode placement system. INTERPRETATION: The patient was noted to be in awake and drowsy states during this EEG. Resting awake background consisted of 3-4 hertz delta activity measuring 15-60 microvolts in amplitude, which was symmetric bilaterally. Rare right central, parietal and temporal epileptiform discharges were noted. Hyperventilation could not be performed. Photic stimulation remained unremarkable. Electrocardiogram (EKG) revealed normal sinus rhythm. No focal, lateralizing or epileptiform abnormalities were seen. No relevant clinical activity was noted. CONCLUSION: This EEG in awake and drowsy states is abnormal due to presence of generalized snoring and disorganization of background consistent with nonspecific diffuse cerebral dysfunction such as seen in encephalopathy due to multiple potential causes including toxic, metabolic, medication related, infectious, or multiple structural brain abnormalities. In addition, rare right central, parietal and temporal epileptiform discharges were seen consistent with focal, cortical, structural or functional abnormality with epileptic potential and consistent with patient's history of prior seizures. Clinical correlation is recommended.
[2018-08-03] MEDS: FUROSEMIDE injection 250 MG in D5W 225 ML IV SCH (06:55)
[2018-08-03] MEDS: SYMBICORT 160/4.5MCG INHALER 6GM INH SCH ×2 (07:25→20:12)
[2018-08-03] MEDS ORDERED: POTASSIUM CHLORIDE 10 MEQ SR TABLET PO ONE (07:30)
[2018-08-03 08:00] VITALS: BP 145/64
--- NOTE | 2018-08-03 08:16 | IPNPDOC ---
Text Note Date of Service The patient was seen on 08/03/18. NOTE SUBJECTIVE: Patient seen and examined at bedside. No acute overnight events r eported. No new medical complaints this morning. Questionable historian this morning. OBJECTIVE: VITAL SIGNS: Listed below. GENERAL: NAD, lying comfortably in bed, somewhat confused HEENT: NC/AT CARDIOVASCULAR: +S1S2, RRR LUNGS: diminished breath sounds ABDOMEN: Soft and nontender and bowel sounds present, obese EXTREMITIES: Positive edema. LABORATORY DATA: Listed below. ASSESSMENT AND PLAN: #AMS - unable to obtain closed MRI - possible open MRI - possibly secondary to hypothyroidism - continuing IV synthroid - will d/w endo regarding dosage - neurology c/s appreciated - trial of abilify #hypothyroidism - TSH slightly worsening - to d/w endocrinology # Right sided heart failure with some moderate pulmonary hypertension. - edema much improved - transition to home torsemide/fluid restriction # COPD with frequent hypoxic hypercarbic failure. - weaned to room air this morning - continue to monitor # History of seizures. - Dilantin level in the normal range. # ANGELINA noncompliant with the CPAP on ANGELINA protocol. # History of stroke on aspirin. # Anemia of chronic disease. - continue to monitor #CAD - continue aspirin and statin. #. History of sarcoidosis on chronic steroids. #. History of breast cancer, status-post left sided mastectomy. #. DVT prophylaxis. On heparin. VS,Fishbone, I+O VS, Fishbone, I+O Laboratory Tests 08/03/18 05:21 Red Blood Count 2.76 L, Mean Corpuscular Volume 97.8 H, Mean Corpuscular Hemoglobin 30.1, Mean Corpuscular Hemoglobin Concent 30.7 L, Red Cell Distribution Width 16.0 H, Calcium Level 7.8 L Vital Signs Date Time Temp Pulse Resp B/P (MAP) Pulse Ox O2 Delivery O2 Flow Rate FiO2 08/03/18 06:00 67 98 Nasal Cannula 0.5 08/03/18 04:00 97.6 18 144/63 (90) I&O- Last 24 Hours up to 6 AM 08/03/18 06:00 Intake Total 1212 ml Output Total 3150 ml Balance -1938 ml JACK SILVA MD Aug 03, 2018 08:16
[2018-08-03] MEDS: LEVOTHYROXINE 100 MCG (0.1MG) VIAL IV SCH (08:17)
[2018-08-03] MEDS: HEPARIN SOD (PORCINE) 5000 UNITS/ML VIAL SQ SCH ×2 (08:18→22:07)
[2018-08-03] MEDS: ARIPiprazole 2 MG TAB PO SCH (08:19)
[2018-08-03] MEDS: PHENYTOIN ER 100 MG CAP PO SCH (08:19)
[2018-08-03] MEDS: SPIRONOLACTONE 50 MG TAB PO SCH (08:19)
[2018-08-03] MEDS: ASPIRIN 325 MG TAB PO SCH (08:19)
[2018-08-03] MEDS: PANTOPRAZOLE 40MG TAB (PROTONIX) PO SCH (08:20)
[2018-08-03] MEDS: SENOKOT S TAB PO SCH (08:20)
[2018-08-03] MEDS: **hydrALAZINE** 50 MG TAB PO SCH ×3 (08:20→22:07)
[2018-08-03] MEDS: METOPROLOL TARTRATE 100 MG TAB PO SCH ×2 (08:21→22:06)
[2018-08-03] MEDS: TORSEMIDE 20 MG TAB PO SCH ×2 (08:21→17:41)
[2018-08-03] MEDS: predniSONE 10 MG TAB PO SCH (08:21)
[2018-08-03] MEDS: SODIUM CHLORIDE 0.9% INJ 10 ML SYR IV PRN (08:22)
[2018-08-03] MEDS: BRIMONIDINE 0.15% OPHTH SOLN 5 ML OU SCH ×2 (08:22→22:07)
[2018-08-03 12:00] VITALS: BP 138/65
[2018-08-03 16:00] VITALS: BP 167/74
--- NOTE | 2018-08-03 16:46 | REP ---
REASON: Thyroid nodules and new onset of hypothyroidism. Right lobe of the thyroid gland measures 4.4 x 2.7 x 2.8 cm and left measures 3.9 x 2.1 x 2.5 cm. The thyroid parenchymal pattern is heterogenous. On the right there are two 6 mm sized nodules and on the left there are two subcentimeter sized nodules 1 measures 3 mm and the other measures 8 mm. IMPRESSION:No thyromegaly, however, nodules as described above. Electronically Signed by Frantz Montenegro DO 08/03/2018 05:23 P
[2018-08-03 20:00] VITALS: BP 144/64
[2018-08-03] MEDS: LEVEMIR (INSULIN DETEMIR) 1 UNITS/0.01ML SC SCH (21:00)
[2018-08-03] MEDS: ROSUVASTATIN 10 MG TAB (CRESTOR) PO SCH (22:07)
[2018-08-04] VITALS: BP 136/64
[2018-08-04] MEDS: ACETAMINOPHEN TAB 650MG DOSE (2X325MG) PO PRN ×2 (04:45→12:26)
[2018-08-04] MEDS: SODIUM CHLORIDE 0.9% INJ 10 ML SYR IV PRN (04:46)
[2018-08-04] MEDS: SODIUM CHLORIDE 0.9% INJ 10 ML SYR IV SCH ×2 (04:46→16:40)
[2018-08-04 05:25] LABS: HEMATOCRIT 27.4 % (36.0-47.0); HEMOGLOBIN 8.3 g/dl (12.0-15.5); MEAN CORPUSCULAR HEMOGLOBIN 29.3 pg (27.0-33.0); MEAN CORPUSCULAR HGB CONC 30.3 g/dl (32.0-36.5); MEAN CORPUSCULAR VOLUME 96.8 fl (80.0-96.0); PLATELET COUNT, AUTOMATED 263 10^3/uL (150-450); RED BLOOD COUNT 2.83 10^6/uL (4.00-5.40); WHITE BLOOD COUNT 6.6 10^3/uL (4.0-10.0)
[2018-08-04 05:35] LABS: BLOOD UREA NITROGEN 16 MG/DL (7-18); CALCIUM LEVEL 7.8 MG/DL (8.8-10.2); CARBON DIOXIDE LEVEL 42 MEQ/L (21-32); CHLORIDE LEVEL 97 MEQ/L (98-107); CREATININE FOR GFR 1.01 MG/DL (0.55-1.30); FREE T4 0.57 NG/DL (0.76-1.46); GLOMERULAR FILTRATION RATE > 60.0 (>45); GLUCOSE, FASTING 88 MG/DL (70-100); POTASSIUM SERUM 3.4 MEQ/L (3.5-5.1); SODIUM LEVEL 142 MEQ/L (136-145)
[2018-08-04] MEDS: HumaLOG INSULIN (NovoLOG) PER UNIT SC SCH ×4 (05:41→18:00)
[2018-08-04] MEDS: SYMBICORT 160/4.5MCG INHALER 6GM INH SCH ×2 (07:52→20:16)
[2018-08-04 08:00] VITALS: BP 118/63
[2018-08-04] MEDS: HEPARIN SOD (PORCINE) 5000 UNITS/ML VIAL SQ SCH ×2 (08:52→21:02)
[2018-08-04] MEDS: ARIPiprazole 2 MG TAB PO SCH (08:53)
[2018-08-04] MEDS: SENOKOT S TAB PO SCH (08:53)
[2018-08-04] MEDS: TORSEMIDE 20 MG TAB PO SCH ×2 (08:53→16:39)
[2018-08-04] MEDS: BRIMONIDINE 0.15% OPHTH SOLN 5 ML OU SCH ×2 (08:53→21:01)
[2018-08-04] MEDS: predniSONE 10 MG TAB PO SCH (08:53)
[2018-08-04] MEDS: PHENYTOIN ER 100 MG CAP PO SCH (08:53)
[2018-08-04] MEDS: ASPIRIN 325 MG TAB PO SCH (08:53)
[2018-08-04] MEDS: PANTOPRAZOLE 40MG TAB (PROTONIX) PO SCH (08:53)
[2018-08-04] MEDS: SPIRONOLACTONE 50 MG TAB PO SCH (08:53)
[2018-08-04] MEDS: METOPROLOL TARTRATE 100 MG TAB PO SCH ×2 (08:54→21:02)
[2018-08-04] MEDS: **hydrALAZINE** 50 MG TAB PO SCH ×3 (08:54→21:01)
[2018-08-04] MEDS: LEVOTHYROXINE 125MCG TABLET (0.125MG) PO SCH (08:56)
[2018-08-04] MEDS ORDERED: SODIUM CHLORIDE 0.9% INJ 10 ML SYR IV PRN (09:45)
[2018-08-04 10:54] LABS: THYROGLOBULIN ANTIBODY 22.5 U/ML (<60.0); THYROID PEROXIDASE ANTIBODY < 28.0 U/ML (<60.0)
--- NOTE | 2018-08-04 11:07 | IPNPDOC ---
Text Note Date of Service The patient was seen on 08/04/18. NOTE SUBJECTIVE: Patient seen and examined at bedside. No acute overnight events re ported. No new medical complaints this morning. Mentation improved. OBJECTIVE: VITAL SIGNS: Listed below. GENERAL: NAD, lying comfortably in bed, lethargic HEENT: NC/AT CARDIOVASCULAR: +S1S2, RRR LUNGS: diminished breath sounds ABDOMEN: Soft and nontender and bowel sounds present, obese EXTREMITIES: Positive edema. LABORATORY DATA: Listed below. ASSESSMENT AND PLAN: #metabolic encephalopathy possibly secondary to hypothyroidism - unable to obtain closed MRI - no open MRI available - repeat CT head - possibly secondary to hypothyroidism - d/w endo at [facility] - transition to 125 mcg PO - follow up TSH in 2-3 weeks - neurology c/s appreciated - trial of abilify #hypothyroidism - d/w endocrinology at [facility] - PO 125mcg synthroid - 2-3 weeks f/u TSH # Right sided heart failure with some moderate pulmonary hypertension. - edema much improved - transition to home torsemide/fluid restriction # COPD with frequent hypoxic hypercarbic failure. - weaned to room air this morning - continue to monitor # History of seizures. - Dilantin level in the normal range. # ANGELINA noncompliant with the CPAP on ANGELINA protocol. # History of stroke on aspirin. # Anemia of chronic disease. - continue to monitor #CAD - continue aspirin and statin. #. History of sarcoidosis on chronic steroids. #. History of breast cancer, status-post left sided mastectomy. #. DVT prophylaxis. On heparin. Dispo: transition to PO meds, PT/OT, clinical improvement, possible discharge in 48-72 hours VS,Cielo, I+O VS, Rudybone, I+O Laboratory Tests 08/04/18 04:48 Red Blood Count 2.83 L, Mean Corpuscular Volume 96.8 H, Mean Corpuscular Hemoglobin 29.3, Mean Corpuscular Hemoglobin Concent 30.3 L, Red Cell Distribution Width 15.8 H, Calcium Level 7.8 L Vital Signs Date Time Temp Pulse Resp B/P (MAP) Pulse Ox O2 Delivery O2 Flow Rate FiO2 08/04/18 08:54 71 118/63 08/04/18 08:00 97.4 17 97 0.5 08/03/18 13:00 Nasal Cannula I&O- Last 24 Hours up to 6 AM 08/04/18 06:00 Intake Total 780 ml Output Total 1740 ml Balance -960 ml JACK SILVA MD August 04, 2018 11:07
[2018-08-04 12:00] VITALS: BP 138/62
--- NOTE | 2018-08-04 12:10 | REP ---
CT Head without contrast HISTORY: Altered mental status COMPARISON: 08/02/2018 Areas of decreased attenuation are present in the right basal ganglia and thalamus. These represent old lacunar infarctions. Areas of decreased attenuation are present in the periventricular and subcortical white matter. This represents small-vessel ischemic disease. There is no intraparenchymal hemorrhage, acute infarct, mass or midline shift. The ventricular system and cortical sulci are dilated consistent with mild volume loss. There is no extra cerebral collection. There is no fracture. The visualized sinuses are clear. IMPRESSION: 1. Old right basal ganglia and thalamic lacunar infarctions. 2. Small vessel ischemic disease. 3. Mild volume loss. Electronically Signed by Prosper Winston MD 08/04/2018 12:02 P
[2018-08-04 16:00] VITALS: BP 163/75
[2018-08-04 20:00] VITALS: BP 137/68
[2018-08-04] MEDS: LEVEMIR (INSULIN DETEMIR) 1 UNITS/0.01ML SC SCH (20:45)
[2018-08-04] MEDS: ROSUVASTATIN 10 MG TAB (CRESTOR) PO SCH (21:01)
[2018-08-04 23:59] VITALS: BP 127/61
[2018-08-05] MEDS: HumaLOG INSULIN (NovoLOG) PER UNIT SC SCH ×4 (00:28→17:07)
[2018-08-05 04:00] VITALS: BP 159/67
[2018-08-05] MEDS: SODIUM CHLORIDE 0.9% INJ 10 ML SYR IV SCH ×3 (06:00→17:08)
[2018-08-05] MEDS: LEVOTHYROXINE 125MCG TABLET (0.125MG) PO SCH (06:14)
[2018-08-05] MEDS: SYMBICORT 160/4.5MCG INHALER 6GM INH SCH ×2 (07:37→20:11)
[2018-08-05 08:00] VITALS: BP 144/58
[2018-08-05] MEDS ORDERED: ONDANSETRON 4 MG TAB (S0181) PO PRN (08:00)
[2018-08-05] MEDS: METOPROLOL TARTRATE 100 MG TAB PO SCH ×2 (08:19→20:37)
[2018-08-05] MEDS: ASPIRIN 325 MG TAB PO SCH (08:19)
[2018-08-05] MEDS: SENOKOT S TAB PO SCH (08:20)
[2018-08-05] MEDS: PANTOPRAZOLE 40MG TAB (PROTONIX) PO SCH (08:20)
[2018-08-05] MEDS: predniSONE 10 MG TAB PO SCH (08:20)
[2018-08-05] MEDS: ARIPiprazole 2 MG TAB PO SCH (08:20)
[2018-08-05] MEDS: **hydrALAZINE** 50 MG TAB PO SCH ×3 (08:20→20:36)
[2018-08-05] MEDS: TORSEMIDE 20 MG TAB PO SCH ×2 (08:20→17:08)
[2018-08-05] MEDS: PHENYTOIN ER 100 MG CAP PO SCH (08:21)
[2018-08-05] MEDS: SPIRONOLACTONE 50 MG TAB PO SCH (08:21)
[2018-08-05] MEDS: ACETAMINOPHEN TAB 650MG DOSE (2X325MG) PO PRN ×2 (08:22→20:44)
[2018-08-05] MEDS: HEPARIN SOD (PORCINE) 5000 UNITS/ML VIAL SQ SCH ×2 (08:22→20:42)
[2018-08-05] MEDS: BRIMONIDINE 0.15% OPHTH SOLN 5 ML OU SCH ×2 (08:23→20:42)
[2018-08-05] MEDS: SODIUM CHLORIDE 0.9% INJ 10 ML SYR IV PRN (08:24)
--- NOTE | 2018-08-05 09:05 | IPNPDOC ---
Text Note Date of Service The patient was seen on 08/05/18. NOTE SUBJECTIVE: Patient seen and examined at bedside. No acute overnight events reported. Complains of left hip pain. Mentation continues to improve. OBJECTIVE: VITAL SIGNS: Listed below. GENERAL: NAD, lying comfortably in bed HEENT: NC/AT CARDIOVASCULAR: +S1S2, RRR LUNGS: diminished breath sounds ABDOMEN: Soft and nontender and bowel sounds present, obese EXTREMITIES: Positive edema. LABORATORY DATA: Listed below. ASSESSMENT AND PLAN: #metabolic encephalopathy possibly secondary to hypothyroidism - unable to obtain closed MRI - no open MRI available - repeat CT head no acute pathology - possibly secondary to hypothyroidism - d/w endo at [facility] - transition to 125 mcg PO - follow up TSH in 2-3 weeks - neurology c/s appreciated - trial of abilify #hypothyroidism - d/w endocrinology at [facility] - PO 125mcg synthroid - 2-3 weeks f/u TSH # Right sided heart failure with some moderate pulmonary hypertension. - edema much improved - transition to home torsemide/fluid restriction # COPD with frequent hypoxic hypercarbic failure. - weaned to room air this morning - continue to monitor # History of seizures. - Dilantin level in the normal range. # ANGELINA noncompliant with the CPAP on ANGELINA protocol. # History of stroke on aspirin. # Anemia of chronic disease. - continue to monitor #CAD - continue aspirin and statin. #. History of sarcoidosis on chronic steroids. #. History of breast cancer, status-post left sided mastectomy. #. DVT prophylaxis. On heparin. Dispo: transition to PO meds, PT/OT, clinical improvement, possible discharge in 24-48 hours VS,Fishbone, I+O VS, Fishbone, I+O Vital Signs Date Time Temp Pulse Resp B/P (MAP) Pulse Ox O2 Delivery O2 Flow Rate FiO2 08/05/18 08:20 144/58 08/05/18 08:19 66 08/05/18 08:00 98.0 16 97 0.5 08/03/18 13:00 Nasal Cannula I&O- Last 24 Hours up to 6 AM 08/05/18 06:00 Intake Total 360 ml Output Total 1400 ml Balance -1040 ml JACK SILVA MD August 05, 2018 09:05
[2018-08-05 09:12] LABS: BASO % 0.8 % (0.0-1.0); EOS # 0.8 10^3/uL (0.0-0.50); EOS % 14.3 % (0.0-3.0); HEMATOCRIT 28.4 % (36.0-47.0); HEMOGLOBIN 8.5 g/dl (12.0-15.5); LYMPH # 0.9 10^3/uL (1.5-4.5); MEAN CORPUSCULAR HEMOGLOBIN 29.6 pg (27.0-33.0); MEAN CORPUSCULAR HGB CONC 29.9 g/dl (32.0-36.5); MONO # 1.1 10^3/uL (0.0-0.8); MONO % 21.7 % (0.0-5.0); NEUTROPHILS # 2.4 10^3/uL (1.8-7.7); NEUTROPHILS % 45.2 % (36.0-66.0); PLATELET COUNT, AUTOMATED 266 10^3/uL (150-450); RED BLOOD COUNT 2.87 10^6/uL (4.00-5.40); WHITE BLOOD COUNT 5.3 10^3/uL (4.0-10.0)
[2018-08-05 09:31] LABS: ALBUMIN 2.8 GM/DL (3.2-5.2); ALT/SGPT 14 U/L (12-78); BILIRUBIN,TOTAL 0.3 MG/DL (0.2-1.0); BLOOD UREA NITROGEN 13 MG/DL (7-18); CALCIUM LEVEL 7.9 MG/DL (8.8-10.2); CARBON DIOXIDE LEVEL 40 MEQ/L (21-32); CHLORIDE LEVEL 98 MEQ/L (98-107); CREATININE FOR GFR 0.93 MG/DL (0.55-1.30); GLOMERULAR FILTRATION RATE > 60.0 (>45); GLUCOSE, FASTING 96 MG/DL (70-100); POTASSIUM SERUM 3.5 MEQ/L (3.5-5.1); SODIUM LEVEL 140 MEQ/L (136-145)
--- NOTE | 2018-08-05 10:08 | REP ---
LEFT HIP, TWO VIEWS: HISTORY: Hip pain. There is no acute fracture or dislocation. There is mild narrowing of the joint space. IMPRESSION: There is no acute fracture or dislocation. Electronically Signed by Prosper Winston MD 08/05/2018 10:24 A
--- NOTE | 2018-08-05 10:09 | REP ---
AP, LATERAL LEFT KNEE, TWO VIEWS: HISTORY: Hip pain. There is no acute fracture or dislocation. There is severe narrowing of the joint spaces with associated osteophyte formation. The bony structure is osteopenic. IMPRESSION:Degenerative change as described above. Electronically Signed by Prosper Winston MD 08/05/2018 10:25 A
[2018-08-05 12:00] VITALS: BP 136/56
[2018-08-05 16:00] VITALS: BP 152/62
[2018-08-05 19:25] VITALS: BP 134/66
[2018-08-05] MEDS: ROSUVASTATIN 10 MG TAB (CRESTOR) PO SCH (20:36)
[2018-08-05] MEDS: LEVEMIR (INSULIN DETEMIR) 1 UNITS/0.01ML SC SCH (20:41)
[2018-08-05 23:36] VITALS: BP 150/71
[2018-08-06 03:26] VITALS: BP 143/67
[2018-08-06] MEDS: LEVOTHYROXINE 125MCG TABLET (0.125MG) PO SCH (05:51)
[2018-08-06] MEDS: SODIUM CHLORIDE 0.9% INJ 10 ML SYR IV SCH ×2 (05:51→09:00)
[2018-08-06] MEDS: HumaLOG INSULIN (NovoLOG) PER UNIT SC SCH ×3 (06:00→11:54)
[2018-08-06 06:11] LABS: BASO % 0.3 % (0.0-1.0); EOS # 0.8 10^3/uL (0.0-0.50); EOS % 13.2 % (0.0-3.0); HEMATOCRIT 28.9 % (36.0-47.0); HEMOGLOBIN 8.8 g/dl (12.0-15.5); LYMPH % 18.1 % (24.0-44.0); MEAN CORPUSCULAR HEMOGLOBIN 29.8 pg (27.0-33.0); MEAN CORPUSCULAR HGB CONC 30.4 g/dl (32.0-36.5); MONO # 1.2 10^3/uL (0.0-0.8); MONO % 20.3 % (0.0-5.0); NEUTROPHILS # 2.7 10^3/uL (1.8-7.7); NEUTROPHILS % 47.1 % (36.0-66.0); PLATELET COUNT, AUTOMATED 275 10^3/uL (150-450); RED BLOOD COUNT 2.95 10^6/uL (4.00-5.40); WHITE BLOOD COUNT 5.8 10^3/uL (4.0-10.0)
[2018-08-06 06:41] LABS: BLOOD UREA NITROGEN 13 MG/DL (7-18); CALCIUM LEVEL 7.8 MG/DL (8.8-10.2); CARBON DIOXIDE LEVEL 38 MEQ/L (21-32); CHLORIDE LEVEL 100 MEQ/L (98-107); CREATININE FOR GFR 0.88 MG/DL (0.55-1.30); FREE THYROXINE INDEX 1.5 % (1.3-4.8); GLOMERULAR FILTRATION RATE > 60.0 (>45); GLUCOSE, FASTING 84 MG/DL (70-100); POTASSIUM SERUM 3.4 MEQ/L (3.5-5.1); SODIUM LEVEL 140 MEQ/L (136-145); T UPTAKE 31 % (30-39); THYROXINE (T4) 4.9 UG/DL (4.5-12.0)
[2018-08-06] MEDS ORDERED: POTASSIUM CHLORIDE 10 MEQ SR TABLET PO ONE (07:15)
[2018-08-06 08:00] VITALS: BP 135/62
[2018-08-06] MEDS: ASPIRIN 325 MG TAB PO SCH (08:00)
[2018-08-06] MEDS: SENOKOT S TAB PO SCH (08:00)
[2018-08-06] MEDS: SPIRONOLACTONE 50 MG TAB PO SCH (08:00)
[2018-08-06] MEDS: PANTOPRAZOLE 40MG TAB (PROTONIX) PO SCH (08:00)
[2018-08-06] MEDS: predniSONE 10 MG TAB PO SCH (08:00)
[2018-08-06 08:01] VITALS: BP 135/62
[2018-08-06] MEDS: METOPROLOL TARTRATE 100 MG TAB PO SCH (08:01)
[2018-08-06] MEDS: TORSEMIDE 20 MG TAB PO SCH (08:01)
[2018-08-06] MEDS: ARIPiprazole 2 MG TAB PO SCH (08:01)
[2018-08-06] MEDS: HEPARIN SOD (PORCINE) 5000 UNITS/ML VIAL SQ SCH (08:02)
[2018-08-06] MEDS: BRIMONIDINE 0.15% OPHTH SOLN 5 ML OU SCH (08:02)
[2018-08-06] MEDS: PHENYTOIN ER 100 MG CAP PO SCH (08:02)
[2018-08-06] MEDS: **hydrALAZINE** 50 MG TAB PO SCH (08:02)
[2018-08-06 08:20] LABS: MAGNESIUM LEVEL 2.2 MG/DL (1.8-2.4)
[2018-08-06] MEDS: SYMBICORT 160/4.5MCG INHALER 6GM INH SCH (08:26)
[2018-08-06] MEDS ORDERED: LEVO125T4 PO (08:53)
[2018-08-06] MEDS ORDERED: ABIL1TAB13 PO (08:53)
--- NOTE | 2018-08-06 13:27 | DS.PDOC ---
Discharge Summary General Date of Admission Jul 28, 2018 at 14:12 Date of Discharge 08/06/18 Specialist/Consultants Involve: KM VERDUGO MD Discharge Summary PROCEDURES PERFORMED DURING STAY: EEG ADMITTING DIAGNOSES: 1. Metabolic encephalopathy - multifactorial 2. hypothyroidism 3. hypercapnic respiratory distress 4. decompensated heart failure SECONDARY DIAGNOSES: 1. COPD with a history of frequent hypoxic, hypercapnic respiratory failure. 2. Insulin-dependent diabetes with diabetic neuropathy and diabetic nephropathy. 3. CKD stage III. 4. ANGELINA, noncompliant with CPAP. 5. History of seizures. 6. History of stroke, residual left-sided weakness. 7. GERD 8. Morbid obesity. 9. Anemia of chronic disease. 10. HTN. 11. Right-sided heart failure. 12. CAD 13. Sarcoidosis. 14. History of breast cancer s/p left mastectomy 15. Hysterectomy. COMPLICATIONS/CHIEF COMPLAINT: Altered Mental Status,Congestive Heart Failure. HISTORY OF PRESENT ILLNESS: This patient is a 67-year-old female with a past medical history significant for chronic obstructive pulmonary disease (COPD), type 2 diabetes, chronic kidney disease (CKD) stage III, obstructive sleep apnea (ANGELINA), noncompliant with continuous positive airway pressure (CPAP), history of seizures, stroke, gastroesophageal reflux disease (GERD), hypertension, right- sided heart failure, coronary artery disease, sarcoidosis, breast cancer, who was transferred from [facility] to [facility] on 07/28/2018 for altered mental status changes. At the time of encounter, patient was not fully oriented. Information obtained from the provider, staff, and medical record. Patient was found at her residing facility unresponsive for unknown duration. Emergency medical service (EMS) was informed. Patient was brought to [facility]. During the initial evaluation, patient had difficulty staying awake, with continued moaning and some discomfort. Signs symptoms of fluid overload. One dose of Lasix was given to the patient, and hospitalist team was called for admission. HOSPITAL COURSE: Admitted for further evaluation and treatment for metabolic encephalopathy, deemed to be multifactorial etiology, most notably decompensated heart failure, hypercapnia and hypothyroid. No prior history of hypothyroidism with recent thyroid profile WNL, but significantly hypothyroid on admission. Neurology was consulted for further assistance. Her hypercapnia resolved, and her fluid overload treated with iv diuretics. Endocrinology from [facility] was contacted for further assistance regarding her hypothyroidism, with recommendations to continue with 125 mcg PO synthroid, and repeat TSH in 2 weeks. Her mentation returned to baseline, and patient discharged back to [facility]. DISCHARGE MEDICATIONS: Please see below. ALLERGIES: Please see below. PHYSICAL EXAMINATION ON DISCHARGE: VITAL SIGNS: Please see below. GENERAL: NAD, lying comfortably in bed HEENT: NC/AT CARDIOVASCULAR: +S1S2, RRR LUNGS: diminished breath sounds, CTA ABDOMEN: Soft, NT, +BS, obese EXTREMITIES: Positive edema. LABORATORY DATA: Please see below. ACTIVITY: [As tolerated]. DISCHARGE INSTRUCTIONS: D/C to [facility] ITEMS TO FOLLOWUP ON ON OUTPATIENT: 1. Follow up PCP in 3-5 days 2. Follow up thyroid panel in 1-2 weeks DISCHARGE CONDITION: [Stable]. TIME SPENT ON DISCHARGE: Greater than 30 minutes. Vital Signs/I&Os Vital Signs Date Time Temp Pulse Resp B/P (MAP) Pulse Ox O2 Delivery O2 Flow Rate FiO2 08/06/18 08:01 68 135/62 08/06/18 08:00 0.5 08/06/18 08:00 97.9 16 94 08/03/18 13:00 Nasal Cannula I&O- Last 24 Hours up to 6 AM 08/06/18 06:00 Output Total 750 ml Balance -750 ml Laboratory Data Labs 24H Laboratory Tests 2 08/05/18 16:07: Bedside Glucose (Misc Panel) 129H 08/05/18 20:29: Bedside Glucose (Misc Panel) 125H 08/06/18 00:07: Bedside Glucose (Misc Panel) 97 08/06/18 06:00: Bedside Glucose (Misc Panel) 89, Immature Granulocyte % (Auto) 1.0, White Blood Count 5.8, Red Blood Count 2.95L, Hemoglobin 8.8L, Hematocrit 28.9L, Mean Corpuscular Volume 98.0H, Mean Corpuscular Hemoglobin 29.8, Mean Corpuscular Hemoglobin Concent 30.4L, Red Cell Distribution Width 15.8H, Platelet Count 275, Neutrophils (%) (Auto) 47.1, Lymphocytes (%) (Auto) 18.1L, Monocytes (%) (Auto) 20.3H, Eosinophils (%) (Auto) 13.2H, Basophils (%) (Auto) 0.3, Neutrophils # (Auto) 2.7, Lymphocytes # (Auto) 1.0L, Monocytes # (Auto) 1.2H, Eosinophils # (Auto) 0.8H, Basophils # (Auto) 0.0, Nucleated Red Blood Cells % (auto) 0.0, Anion Gap 2L, Glomerular Filtration Rate > 60.0, Blood Urea Nitrogen 13, Creatinine 0.88, Sodium Level 140, Potassium Level 3.4L, Chloride Level 100, Carbon Dioxide Level 38H, Calcium Level 7.8L, Magnesium Level 2.2, Thyroid Stimulating Hormone (TSH) 71.600H, Free Thyroxine Index 1.5, Thyroxine (T4) 4.9, Triiodothyronine (T3) Uptake 31 08/06/18 11:44: Bedside Glucose (Misc Panel) 129H CBC/BMP Laboratory Tests 08/06/18 06:00 Red Blood Count 2.95 L, Mean Corpuscular Volume 98.0 H, Mean Corpuscular Hemoglobin 29.8, Mean Corpuscular Hemoglobin Concent 30.4 L, Red Cell Distribution Width 15.8 H, Neutrophils (%) (Auto) 47.1, Lymphocytes (%) (Auto) 18.1 L, Monocytes (%) (Auto) 20.3 H, Eosinophils (%) (Auto) 13.2 H, Basophils (%) (Auto) 0.3, Neutrophils # (Auto) 2.7, Lymphocytes # (Auto) 1.0 L, Monocytes # (Auto) 1.2 H, Eosinophils # (Auto) 0.8 H, Basophils # (Auto) 0.0, Calcium Level 7.8 L FSBS Laboratory Tests Test 08/05/18 16:07 08/05/18 20:29 08/06/18 00:07 08/06/18 06:00 Range/Units Bedside Glucose (Misc Panel) 129 125 97 89 80-115 MG/DL Test 08/06/18 11:44 Range/Units Bedside Glucose (Misc Panel) 129 80-115 MG/DL Microbiology Microbiology 07/28/18 Blood Culture - Final, Complete NO GROWTH AFTER 5 DAYS 07/28/18 Blood Culture - Final, Complete NO GROWTH AFTER 5 DAYS 07/29/18 Stool Occult Blood (EREN) - Final, Complete 07/28/18 Respiratory Virus Panel (PCR) (EREN) - Final, Complete Discharge Medications Scheduled Aripiprazole (Abilify) 2 Mg Tablet, 2 MG PO DAILY Aspirin (Aspirin) 325 Mg Tab, 325 MG PO DAILY, (Reported) Bimatoprost (Lumigan) 50 Drop/2.5 Ml Salma, 1 DROP OU DAILY, (Reported) Brimonidine Tartrate (Brimonidine Tartrate) 100 Drop/5 Ml Soln, 1 DROP OU BID, (Reported) Budesonide/Formoterol (Symbicort 160-4.5 Mcg Inhaler) 60 Puff/Inhaler Aers, 2 PUFF INH BID, (Reported) Cetirizine HCl (Cetirizine HCl) 10 Mg Tab, 10 MG PO DAILY, (Reported) Docusate Sodium (Colace) 100 Mg Cap, 100 MG PO DAILY, (Reported) Ergocalciferol (Vitamin D2) (Drisdol) 50,000 Unit Cap, 50,000 UNIT PO QWEEK, (Reported) SUNDAYS Gabapentin (Neurontin) 300 Mg Cap, 300 MG PO QHS, (Reported) Gabapentin (Neurontin) 100 Mg Cap, 200 MG PO BID, (Reported) TAKE AT 0900 AND 1400 Guaifenesin (Mucinex) 600 Mg Tab, 600 MG PO BID, (Reported) Insulin Detemir (Levemir) 1 Units/0.01 Ml Susp, 30 UNITS SC QHS, (Reported) Insulin Human Lispro (Humalog) 1 Units/0.01 Ml Inj, 1 DOSE SC BID, (Reported) PER SLIDING SCALE 0730/1700 Isosorbide Dinitrate (Isosorbide Dinitrate) 5 Mg Tab, 5 MG PO TID, (Reported) TAKE AT 0800,1400, AND 2000 Levothyroxine Sodium (Levothyroxine Sodium) 125 Mcg Tablet, 125 MCG PO DAILY@06 Lidocaine HCl (Aspercreme) 4 % Cre, 1 APLCT TOP BID, (Reported) BOTH FEET, AND NECK Metformin HCl (Metformin HCl) 500 Mg Tab, 500 MG PO BID, (Reported) Metolazone (Metolazone) 5 Mg Tab, 5 MG PO QWEEK, (Reported) MONDAYS Metoprolol Tartrate (Metoprolol Tartrate) 100 Mg Tab, 100 MG PO BID, (Reported) Multivitamins (Thera M Plus Tablet) 1 Tab Tab, 1 TAB PO DAILY, (Reported) Pantoprazole Sodium (Protonix) 40 Mg Tab, 40 MG PO DAILY, (Reported) Phenytoin Sodium Extended (Dilantin) 100 Mg Cap, 600 MG PO DAILY, (Reported) Polyethylene Glycol 3350 (Miralax) 1 Pow Pow, 17 GM PO DAILY, (Reported) Prednisone (Prednisone) 10 Mg Tab, 10 MG PO DAILY, (Reported) Propylene Glycol (Systane Complete) 10 Ml Drops, 1 DROP OU BID, (Reported) Rosuvastatin Calcium (Rosuvastatin Calcium) 20 Mg Tab, 20 MG PO QHS, (Reported) Sennosides (Senokot) 8.6 Mg Tablet, 1 TAB PO DAILY, (Reported) Spironolactone (Spironolactone) 50 Mg Tab, 50 MG PO DAILY, (Reported) Torsemide (Torsemide) 20 Mg Tablet, 40 MG PO BID, (Reported) TAKES AT 0900 & 1400 hydrALAZINE HCL (Hydralazine HCl) 100 Mg Tab, 100 MG PO TID, (Reported) Scheduled PRN Acetaminophen (Acetaminophen) 500 Mg Tab, 500 MG PO BID PRN for PAIN, (Reported) Acetaminophen (Feverall) 650 Mg Supp.rect, 650 MG IN Q4H PRN for PAIN / FEVER, (Reported) Bisacodyl (Bisacodyl) 10 Mg Sup, 10 MG IN DAILY PRN for CONSTIPATION, (Reported) Glucagon,Human Recombinant (Glucagon Emergency Kit) 1 Mg Kit, 1 MG IM ASDIRECTED PRN for LOW BLOOD SUGAR, (Reported) Lidocaine (Anecream) 4% Cream..g., 1 DOSE TOP PRN PRN for PAIN, (Reported) APPLY TO PORT SITE PRIOR TO ACCESSING Methyl Salicylate/Menthol (Muscle Rub Cream) 1 Cre Cre, 1 APLCT TOP TID PRN for PAIN, (Reported) APPLY TO AFFECTED AREAS Milk Of Magnesia (Milk of Magnesia) 2,400 Mg/10 Ml Oral.susp, 10 ML PO DAILY PRN for CONSTIPATION, (Reported) Sodium Phosphate,Bastrop-Dibasic (Enema Ready To Use) 1 Laurie Laurie, 1 LAURIE IN DAILY PRN for CONSTIPATION, (Reported) Allergies Coded Allergies: Sulfa (Sulfonamide Antibiotics) (Verified Allergy, Unknown, 06/30/18) atorvastatin (Verified Allergy, Unknown, 06/30/18) baclofen (Verified Allergy, Unknown, 06/30/18) clindamycin (Verified Allergy, Unknown, 06/30/18) duloxetine (Verified Allergy, Unknown, 06/30/18) levetiracetam (Verified Allergy, Unknown, 06/30/18) lisinopril (Verified Allergy, Unknown, 06/30/18) topiramate (Verified Allergy, Unknown, 06/30/18) tramadol (Verified Allergy, Unknown, 06/30/18) JACK SILVA MD August 06, 2018 13:27
--- NOTE | 2018-08-11 10:50 | REPIR ---
DATE OF PROCEDURE: 07/28/2018 ATTENDING SURGEON: Dr. Reddy Pierce ASSISTANTS: Megan Freire and Maki Hilario. PREOPERATIVE DIAGNOSIS: Poor intravenous (IV) access. POSTOPERATIVE DIAGNOSIS: Poor intravenous (IV) access. PROCEDURE: Ultrasound-guided right basilic vein cannulation of fluoroscopic guided right basilic vein 45. INDICATION: The patient is a 67-year-old female who requires access due to poor IV access and will undergo placement of a peripherally inserted central catheter (PICC) line. Risks, benefits and alternative treatment options were discussed with the patient. ANESTHESIA: Local with 10 mL of 2% lidocaine mixed with 0.5% Marcaine. FLUOROSCOPY TIME: 6.7 minutes. CONTRAST: 2 mL of Isovue-300. HEPARIN: None. COMPLICATIONS: None. DRAINS: None. SPECIMENS: None. IMPLANT: 45 cm right basilic vein PICC line. DESCRIPTION OF PROCEDURE: The patient was taken to the angiography suite, placed supine on the angiography table, and then prepped and draped in a standard surgical fashion. The ultrasound was used to cannulate the right basilic vein. The catheter and wire were advanced through the basilic vein and distance measured, which correlated with 45 cm. The PICC line was cut to 45 cm and then placed with the tip in the superior vena cava right atrial junction. Final fluoroscopic image showed the PICC line to be in good position and good alignment with no pneumo or hemothorax noted. The PICC line is stable for use.
== END 2018-08-06 12:51 | DRG 643 ==
LOC: M ED 10:00 → EDBD 10:00 → M ED INP 14:12 → M PCU 20:20
PROVIDERS: ADMIT Internal Medicine; ATTEND Internal Medicine
PROC: 02HV33Z Insertion of Infusion Device into Superior Vena Cava, Percutaneous Approach (ICD-10-PCS; 2018-07-28)
PROC: 30233N1 Transfusion of Nonautologous Red Blood Cells into Peripheral Vein, Percutaneous Approach (ICD-10-PCS; principal; 2018-07-29)
DX: E03.9 Hypothyroidism, unspecified (principal); G93.41 Metabolic encephalopathy; J96.11 Chronic respiratory failure with hypoxia; J96.12 Chronic respiratory failure with hypercapnia; I69.354 Hemiplegia and hemiparesis following cerebral infarction affecting left non-dominant side; J44.9 Chronic obstructive pulmonary disease, unspecified; E11.42 Type 2 diabetes mellitus with diabetic polyneuropathy; E11.21 Type 2 diabetes mellitus with diabetic nephropathy; E11.22 Type 2 diabetes mellitus with diabetic chronic kidney disease; N18.3 Chronic kidney disease, stage 3 (moderate); D86.9 Sarcoidosis, unspecified; G47.33 Obstructive sleep apnea (adult) (pediatric); K21.9 Gastro-esophageal reflux disease without esophagitis; E66.01 Morbid (severe) obesity due to excess calories; D63.8 Anemia in other chronic diseases classified elsewhere; I12.9 Hypertensive chronic kidney disease with stage 1 through stage 4 chronic kidney disease, or unspecified chronic kidney disease; I50.810 Right heart failure, unspecified; I25.10 Atherosclerotic heart disease of native coronary artery without angina pectoris; Z85.3 Personal history of malignant neoplasm of breast; Z90.12 Acquired absence of left breast and nipple; Z88.2 Allergy status to sulfonamides; Z88.8 Allergy status to other drugs, medicaments and biological substances; Z88.5 Allergy status to narcotic agent; Z88.1 Allergy status to other antibiotic agents; I27.20 Pulmonary hypertension, unspecified; Z79.52 Long term (current) use of systemic steroids; Z68.35 Body mass index [BMI] 35.0-35.9, adult

== ENCOUNTER 2018-08-09 15:59 | Inpatient (IN) | payer MEDICARE, MEDICAID ==
[~2018-08-09] VITALS: Ht 154.9 cm; Wt 119.6 kg
[~2018-08-09 15:59] MED LIST changes: +ABIL1TAB13 PO; +FEVE650S3 PR; +LEVO125T4 PO; +MOM30SS PO; +SENO8.6T5 PO; +SYST0.6S OU
[2018-08-09] MEDS ORDERED: ABIL1TAB13 PO (16:48)
[2018-08-09] MEDS ORDERED: LEVO125T41 PO (16:48)
[2018-08-09 17:54] LABS: BASO % 0.4 % (0.0-1.0); EOS # 0.5 10^3/uL (0.0-0.50); EOS % 7.5 % (0.0-3.0); HEMATOCRIT 28.6 % (36.0-47.0); HEMOGLOBIN 8.2 g/dl (12.0-15.5); LYMPH % 14.1 % (24.0-44.0); MEAN CORPUSCULAR HEMOGLOBIN 29.9 pg (27.0-33.0); MEAN CORPUSCULAR HGB CONC 28.7 g/dl (32.0-36.5); MEAN CORPUSCULAR VOLUME 104.4 fl (80.0-96.0); MONO # 1.2 10^3/uL (0.0-0.8); MONO % 16.2 % (0.0-5.0); NEUTROPHILS # 4.3 10^3/uL (1.8-7.7); NEUTROPHILS % 60.1 % (36.0-66.0); PLATELET COUNT, AUTOMATED 271 10^3/uL (150-450); RED BLOOD COUNT 2.74 10^6/uL (4.00-5.40); WHITE BLOOD COUNT 7.2 10^3/uL (4.0-10.0)
--- NOTE | 2018-08-09 18:02 | REP ---
Portable chest x-ray: Single view. History: Altered mental status. Comparison study: July 28, 2018. Findings: A right-sided [id number] catheter is seen in place. EKG electrodes are seen. Moderate cardiomegaly is again observed. Vascular congestion and increased perihilar alveolar opacities are again seen essentially unchanged from the July 28, 2018 prior study. Impression: Cardiomegaly, vascular congestion, bilateral perihilar alveolar edema versus infiltrate pattern similar to the prior study. Electronically Signed by Dre Florentino MD 08/10/2018 10:32 A
[2018-08-09 18:33] LABS: ABG HCO3 29.5 MEQ/L (22.0-26.0); ABG O2 SATURATION 99.3 % (95.0-99.0); ABG PARTIAL PRESSURE O2 144.3 mmHg (75.0-100.0); ABG STANDARD HCO3 26.3 MEQ/L (22.0-26.0); ABG TOTAL CO2 31.5 MEQ/L (23.0-31.0); ABG pH (ARTERIAL) 7.282 UNITS (7.350-7.450)
[2018-08-09 18:38] LABS: ALBUMIN 2.9 GM/DL (3.2-5.2); ALT/SGPT 13 U/L (12-78); BILIRUBIN,DIRECT < 0.1 MG/DL (0.0-0.2); BILIRUBIN,TOTAL 0.2 MG/DL (0.2-1.0); BLOOD UREA NITROGEN 22 MG/DL (7-18); CALCIUM LEVEL 7.4 MG/DL (8.8-10.2); CARBON DIOXIDE LEVEL 37 MEQ/L (21-32); CHLORIDE LEVEL 103 MEQ/L (98-107); CPK CREATINE PHOSPHOKINASE 75 U/L (26-192); CREATININE FOR GFR 1.59 MG/DL (0.55-1.30); GLOMERULAR FILTRATION RATE 41.9 (>45); GLUCOSE, FASTING 123 MG/DL (70-100); MB/CK RELATIVE INDEX 2.13 (< OR =4); PHENYTOIN (DILANTIN) 11.9 UG/ML (10.0-20.0); POTASSIUM SERUM 4.4 MEQ/L (3.5-5.1); SODIUM LEVEL 144 MEQ/L (136-145); TOTAL PROTEIN 6.6 GM/DL (6.4-8.2); TROPONIN I 0.31 NG/ML (< 0.10)
[2018-08-09 19:40] LABS: NT-PRO BNP 8579 PG/ML (<125)
[2018-08-09] MEDS ORDERED: GLUCAGON FOR INJ 1 MG VIAL (J1610) IM PRN (20:30)
[2018-08-09] MEDS ORDERED: BISACODYL 10 MG SUPP PR PRN (20:30)
[2018-08-09] MEDS ORDERED: MAALOX 30 ML SUSP *UDC PO PRN (20:30)
[2018-08-09] MEDS ORDERED: MOM 30ML SUSPENSION UDC PO PRN (20:30)
--- NOTE | 2018-08-09 20:45 | HPEPDOC ---
General Date of Admission Chief Complaint The patient is a 67-year-old female admitted with a reason for visit of AMS. History of Present Illness Ms. Cooney is a 67 years old [place] resident who was recently admitted for Metabolic Encephalopathy of multiple etiologies, and discharged to [place] three days ago on 08/06. She was sent back to ER today for AMS. On review of chart, it seems to be pretty much similar case from previous admission, but without clinical signs of heart failure or other acute problems. On arrival to ER, pt was lethargic. CXR showed persistent alveolar infiltrates unchanged from previous admission. Labs showed mild Respiratory Acidosis, with CO2 retention of 64, and slight worsening of renal function. By the time I went to see the patient in the ER, she was fully alert and talking, and following all commands. She could not answer simple questions such as where she was and what month it was. But she insisted she knew the answers and that she was clear in her mind and memory. Pt was breathing fine, with O2 sat of 100% in 2L. She denied pain. Home Medications Scheduled Aripiprazole (Abilify) 2 Mg Tablet, 2 MG PO DAILY, (Reported) Aspirin (Aspirin) 325 Mg Tab, 325 MG PO DAILY, (Reported) Bimatoprost (Lumigan) 50 Drop/2.5 Ml Salma, 1 DROP OU DAILY, (Reported) Brimonidine Tartrate (Brimonidine Tartrate) 100 Drop/5 Ml Soln, 1 DROP OU BID, (Reported) 1400 AND 2100 Budesonide/Formoterol (Symbicort 160-4.5 Mcg Inhaler) 60 Puff/Inhaler Aers, 2 PUFF INH BID, (Reported) Cetirizine HCl (Cetirizine HCl) 10 Mg Tab, 10 MG PO DAILY, (Reported) Docusate Sodium (Colace) 100 Mg Cap, 100 MG PO DAILY, (Reported) Ergocalciferol (Vitamin D2) (Drisdol) 50,000 Unit Cap, 50,000 UNIT PO QWEEK, (Reported) SUNDAYS Gabapentin (Neurontin) 300 Mg Cap, 300 MG PO QHS, (Reported) Gabapentin (Neurontin) 100 Mg Cap, 200 MG PO BID, (Reported) TAKE AT 0900 AND 1400 Guaifenesin (Mucinex) 600 Mg Tab, 600 MG PO BID, (Reported) Insulin Detemir (Levemir) 1 Units/0.01 Ml Susp, 30 UNITS SC QHS, (Reported) Insulin Human Lispro (Humalog) 1 Units/0.01 Ml Inj, 1 DOSE SC BID, (Reported) PER SLIDING SCALE 0730/1700 Isosorbide Dinitrate (Isosorbide Dinitrate) 5 Mg Tab, 5 MG PO TID, (Reported) TAKE AT 0800,1400, AND 2000 Levothyroxine Sodium (Levoxyl) 125 Mcg Tablet, 125 MCG PO DAILY, (Reported) Lidocaine HCl (Aspercreme) 4 % Cre, 1 APLCT TOP BID, (Reported) BOTH FEET, AND NECK Metformin HCl (Metformin HCl) 500 Mg Tab, 500 MG PO BID, (Reported) Metolazone (Metolazone) 5 Mg Tab, 5 MG PO QWEEK, (Reported) MONDAYS Metoprolol Tartrate (Metoprolol Tartrate) 100 Mg Tab, 100 MG PO BID, (Reported) Multivitamins (Thera M Plus Tablet) 1 Tab Tab, 1 TAB PO DAILY, (Reported) Pantoprazole Sodium (Protonix) 40 Mg Tab, 40 MG PO DAILY, (Reported) Phenytoin Sodium Extended (Dilantin) 100 Mg Cap, 600 MG PO DAILY, (Reported) Polyethylene Glycol 3350 (Miralax) 1 Pow Pow, 17 GM PO DAILY, (Reported) Prednisone (Prednisone) 10 Mg Tab, 10 MG PO DAILY, (Reported) Propylene Glycol (Systane Complete) 10 Ml Drops, 1 DROP OU BID, (Reported) Rosuvastatin Calcium (Rosuvastatin Calcium) 20 Mg Tab, 20 MG PO QHS, (Reported) Sennosides (Senokot) 8.6 Mg Tablet, 1 TAB PO DAILY, (Reported) Spironolactone (Spironolactone) 50 Mg Tab, 50 MG PO DAILY, (Reported) Torsemide (Torsemide) 20 Mg Tablet, 40 MG PO BID, (Reported) TAKES AT 0900 & 1400 hydrALAZINE HCL (Hydralazine HCl) 100 Mg Tab, 100 MG PO TID, (Reported) Scheduled PRN Acetaminophen (Acetaminophen) 500 Mg Tab, 500 MG PO BID PRN for PAIN, (Reported) Bisacodyl (Bisacodyl) 10 Mg Sup, 10 MG NC DAILY PRN for CONSTIPATION, (Reported) Glucagon,Human Recombinant (Glucagon Emergency Kit) 1 Mg Kit, 1 MG IM ASDIRECTED PRN for LOW BLOOD SUGAR, (Reported) Methyl Salicylate/Menthol (Muscle Rub Cream) 1 Cre Cre, 1 APLCT TOP TID PRN for PAIN, (Reported) APPLY TO AFFECTED AREAS Milk Of Magnesia (Milk of Magnesia) 2,400 Mg/10 Ml Oral.susp, 10 ML PO DAILY PRN for CONSTIPATION, (Reported) Sodium Phosphate,[place]ston-Dibasic (Enema Ready To Use) 1 Laurie Laurie, 1 LAURIE NC DAILY PRN for CONSTIPATION, (Reported) Allergies Coded Allergies: Sulfa (Sulfonamide Antibiotics) (Verified Allergy, Unknown, 06/30/18) atorvastatin (Verified Allergy, Unknown, 06/30/18) baclofen (Verified Allergy, Unknown, 06/30/18) clindamycin (Verified Allergy, Unknown, 06/30/18) duloxetine (Verified Allergy, Unknown, 06/30/18) levetiracetam (Verified Allergy, Unknown, 06/30/18) lisinopril (Verified Allergy, Unknown, 06/30/18) topiramate (Verified Allergy, Unknown, 06/30/18) tramadol (Verified Allergy, Unknown, 06/30/18) Past Medical History Medical History PAST MEDICAL HISTORY: 1. COPD with a history of frequent hypoxic, hypercapnic respiratory failure. 2. Insulin-dependent diabetes with diabetic neuropathy and diabetic nephropathy. 3. CKD stage III. 4. ANGELINA, noncompliant with CPAP. 5. History of seizures. 6. History of stroke, resulting in left-sided weakness. 7. Gastroesophageal reflux disease 8. Morbid obesity. 9. Anemia of chronic disease. 10. Hypertension. 11. Right-sided heart failure. 12. Coronary artery disease. 13. Sarcoidosis. 14. History of breast cancer. 15. Hysterectomy. 16. Left-sided mastectomy. Family History unable to obtain due to AMS Social History * Smoker: Denies Alcohol: Denies Drugs: denies A-FIB/CHADSVASC A-FIB History Current/History of A-Fib/PAF?: No Review of Systems Other systems Unable to obtain due to AMS Physical Examination General Exam: Positive: Alert, Cooperative, No Acute Distress Eye Exam: Positive: PERRLA ENT Exam: Positive: Atraumatic Neck Exam: Positive: Supple; Negative: JVD Chest Exam: Positive: Clear to auscultation, Normal air movement Heart Exam: Positive: Rate Normal, Regular Rhythm Abdomen Exam: Positive: Normal bowel sounds, Soft, Tenderness Extremity Exam: Positive: Normal pulses; Negative: Edema Skin Exam: Negative: Rash Neuro Exam: Positive: Normal Speech, Normal Tone Psych Exam: Positive: Mood NL, Other (orientation x 3); Negative: Anxiety, Memory Intact Vital Signs Vital Signs Date Time Temp Pulse Resp B/P (MAP) Pulse Ox O2 Delivery O2 Flow Rate FiO2 08/09/18 19:13 64 20 100 Nasal Cannula 2.0 08/09/18 18:10 105/52 (69) 08/09/18 16:03 99.3 Laboratory Data Labs 24H Laboratory Tests 2 08/09/18 17:45: Immature Granulocyte % (Auto) 1.7, White Blood Count 7.2, Red Blood Count 2.74L, Hemoglobin 8.2L, Hematocrit 28.6L, Mean Corpuscular Volume 104.4H, Mean Corpuscular Hemoglobin 29.9, Mean Corpuscular Hemoglobin Concent 28.7L, Red Cell Distribution Width 15.8H, Platelet Count 271, Neutrophils (%) (Auto) 60.1, Lymphocytes (%) (Auto) 14.1L, Monocytes (%) (Auto) 16.2H, Eosinophils (%) (Auto) 7.5H, Basophils (%) (Auto) 0.4, Neutrophils # (Auto) 4.3, Lymphocytes # (Auto) 1.0L, Monocytes # (Auto) 1.2H, Eosinophils # (Auto) 0.5, Basophils # (Auto) 0.0, Nucleated Red Blood Cells % (auto) 0.0, Anion Gap 4L, Glomerular Filtration Rate 41.9L, Calcium Level 7.4L, Aspartate Amino Transf (AST/SGOT) 13, Alanine Aminotransferase (ALT/SGPT) 13, Alkaline Phosphatase 90, Total Bilirubin 0.2, Direct Bilirubin < 0.1, Ammonia 55H, Total Creatine Kinase 75, Creatine Kinase MB 2.0, Creatine Kinase MB Relative Index 2.13, Troponin I 0.31H, SV-Oss-M-Type Natriuretic Peptide 8579H, Total Protein 6.6, Albumin 2.9L, Albumin/Globulin Ratio 0.78L, Thyroid Stimulating Hormone (TSH) 69.500H, Phenytoin (Dilantin) Level 11.9 08/09/18 18:14: Blood Gas Bicarbonate Standard 26.3H, Arterial Blood pH 7.282L, Arterial Blood Partial Pressure CO2 64.0*H, Arterial Blood Partial Pressure O2 144.3H, Arterial Blood Total CO2 31.5H, Arterial Blood HCO3 29.5H, Arterial Blood Base Excess 2.0, Arterial Blood Oxygen Saturation 99.3H CBC/BMP Laboratory Tests 08/09/18 17:45 Red Blood Count 2.74 L, Mean Corpuscular Volume 104.4 H, Mean Corpuscular Hemoglobin 29.9, Mean Corpuscular Hemoglobin Concent 28.7 L, Red Cell Distribution Width 15.8 H, Neutrophils (%) (Auto) 60.1, Lymphocytes (%) (Auto) 14.1 L, Monocytes (%) (Auto) 16.2 H, Eosinophils (%) (Auto) 7.5 H, Basophils (%) (Auto) 0.4, Neutrophils # (Auto) 4.3, Lymphocytes # (Auto) 1.0 L, Monocytes # (Auto) 1.2 H, Eosinophils # (Auto) 0.5, Basophils # (Auto) 0.0 Microbiology Microbiology 08/09/18 Blood Culture, Received Pending 08/09/18 Blood Culture, Received Pending Assessment/Plan 67 years old [place] resident is here for Multifactorial Metabolic Encephalopathy, with CO2 retention- likely from ANGELINA, and suspect underlying Vascular Dementia based on history. Heart failure is not decompensated. Multifactorial Metabolic Encephalopathy, with CO2 retention- likely from ANGELINA, and suspect underlying Vascular Dementia - Keep on observation with CPAP overnight - Repeat ABG in the morning - Supportive care - This could be pt's baseline in terms of her mental status; CPAP should be used whenever she goes to sleep to prevent CO2 retention and worsening of encephalopathy. Unfortunately, I think pt will continue to remain at risk of such episodes. CLARIBEL - Likely due to poor oral intake, while on diuretic - Gentle IV fluid if pt not eating - Avoid any intervention now due to underlying CHF; repeat BMP in the morning. Plan / VTE VTE Prophylaxis Ordered?: No VTE Exclusion Mechanical Proph: Low Risk for VTE VTE Exclusion Pharmacological: At Low Risk for VTE Plan Anticipated Discharge: Alf BALTA CHAIREZ MD August 09, 2018 20:45
[2018-08-09] MEDS: HumaLOG INSULIN (NovoLOG) PER UNIT SC SCH (21:00)
[2018-08-09] MEDS ORDERED: GLUCOSE 4 GM CHEW TABLET PO PRN (21:00)
[2018-08-09] MEDS ORDERED: DEXTROSE 50% 50 ML SYRINGE IV PRN (21:00)
[2018-08-09] MEDS ORDERED: LEVEMIR (INSULIN DETEMIR) 1 UNITS/0.01ML SC SCH (21:00)
--- NOTE | 2018-08-09 22:13 | ECGEPIP ---
Stationary ECG Study [facility] - ED Test Date: 2018-08-09 Pat Name: DEE DEE SCHULTZ Department: Room: - Gender: F Director Of Finance: PAULINA : 1950 Requested By: DIA Blakely Order Number: [id number] Reading MD: Ferny Leyva Measurements Intervals [place] Rate: 66 P: 45 [place]: 251 QRS: 83 QRSD: 90 T: 214 QT: 452 QTc: 475 Interpretive Statements SINUS RHYTHM WITH FIRST DEGREE AV BLOCK NONSPECIFIC T-WAVE ABNORMALITY SIMILAR TO 07/28/18 Electronically Signed On 08-09-2018 22:12:39 EDT by Ferny Leyva
[2018-08-09 22:20] VITALS: BP 117/56
[2018-08-09] MEDS: ISOSORBIDE DIN. (ISORDIL) 5 MG TAB PO SCH (22:20)
[2018-08-09] MEDS: METOPROLOL TARTRATE 100 MG TAB PO SCH (22:20)
[2018-08-09] MEDS: guaiFENesin ER 600 MG TAB PO SCH (22:20)
[2018-08-09] MEDS: **hydrALAZINE** 50 MG TAB PO SCH (22:20)
[2018-08-09] MEDS: BRIMONIDINE 0.15% OPHTH SOLN 5 ML OU SCH (23:50)
[2018-08-10] VITALS (22 sets, daily range): BP systolic 87–155; BP diastolic 42–77; O2SAT 100
[2018-08-10] MEDS: SYMBICORT 160/4.5MCG INHALER 6GM INH SCH ×3 (00:41→19:55)
[2018-08-10 02:11] LABS: ABG BASE EXCESS 8.8 (-2.0-2.0); ABG HCO3 38.1 MEQ/L (22.0-26.0); ABG PARTIAL PRESSURE O2 106.8 mmHg (75.0-100.0); ABG STANDARD HCO3 32.6 MEQ/L (22.0-26.0); ABG TOTAL CO2 40.8 MEQ/L (23.0-31.0)
[2018-08-10 02:12] LABS: ABG PARTIAL PRESSURE CO2 89.4 mmHg (35.0-45.0); ABG pH (ARTERIAL) 7.247 UNITS (7.350-7.450)
[2018-08-10] MEDS ORDERED: ASPIRIN 300 MG SUPP PR ONE (02:15)
[2018-08-10 02:23] LABS: HEMATOCRIT 26.9 % (36.0-47.0); HEMOGLOBIN 7.7 g/dl (12.0-15.5); MEAN CORPUSCULAR HEMOGLOBIN 29.4 pg (27.0-33.0); MEAN CORPUSCULAR HGB CONC 28.6 g/dl (32.0-36.5); MEAN CORPUSCULAR VOLUME 102.7 fl (80.0-96.0); PLATELET COUNT, AUTOMATED 254 10^3/uL (150-450); RED BLOOD COUNT 2.62 10^6/uL (4.00-5.40); WHITE BLOOD COUNT 6.7 10^3/uL (4.0-10.0)
[2018-08-10] MEDS ORDERED: CLOPIDOGREL 300 MG TAB (PLAVIX) PO STA (02:35)
--- NOTE | 2018-08-10 02:51 | TRANSCARE ---
Transition of Care: Transition of Care Was contacted by nursing that pt dsesats to 76% when CPAP was pplaced on and pt is less responsive. Stat ABG was ordered and went to the bedside to examine the pt. Pt is merely responsive; with sternal rub pt answers yes and other incomprehensible sounds. Opens eyes with sternal rub but does not answer any que stions other than occasional answers yes when being asked if she knows where she is and being called her name. Not alert and oriented as not answering questions. Pt sat at 99% with 1L NC at the time of examination. Stat ABG revealed increased resp acidosis with increased CO2 content. Stat D-Dimer pending. Discussed with resp therapist and attending and pt may require bi-pap d/t retained oxygen; transferred to ICU with Bi-PAP ordered. Noted that pt has elevated trop at 0.31 which is not at baseline; cannot rule out ACS. EKG 08/09/[address] elevation. 300mg Aspirin suppos, clopidogrel, and SC lovenox based on weight and creatinine clearance ordered. Trop stat ordered with follow up trop. Neuro checks Q4H, fall precaution, seizure precaution, and aspiration precaution ordered. WILLIS PETERS DO August 10, 2018 02:51
[2018-08-10] MEDS ORDERED: LACTULOSE 20 GM/30 ML SYRUP UD PO ONE (03:00)
[2018-08-10 03:07] LABS: CALCIUM LEVEL 7.3 MG/DL (8.8-10.2); CREATININE FOR GFR 1.62 MG/DL (0.55-1.30); FREE T4 0.44 NG/DL (0.76-1.46); POTASSIUM SERUM 4.2 MEQ/L (3.5-5.1); TROPONIN I 0.44 NG/ML (< 0.10)
--- NOTE | 2018-08-10 03:33 | TRANSCARE ---
Transition of Care: Transition of Care Discussed with attending; will d/c CTA due to elevated creatinine and will d/c treatment for ACS as ACS is unlikely and elevated trop may be due to CLARIBEL. Repeat trop 0.44, will cont to trend troponin. Will d/c lovenox and clopidogrel. Pt's d-dimer returned elevated bu prior CTA 07/2018 showed no PE. GME ATTESTATION GME ATTESTATION My faculty preceptor for this patient encounter was physically present during the encounter and was fully available. All aspects of the patient interview, examination, medical decision making process, and medical care plan development were reviewed and approved by the faculty preceptor. The faculty preceptor is aware and concurs with the plan as stated in the body of this note and will attest to such by his/her cosignature. WILLIS PETERS DO August 10, 2018 03:33
[2018-08-10] MEDS ORDERED: ENOXAPARIN 120 MG/0.8 ML SYR (J1650) SC SCH (04:00)
[2018-08-10 05:33] LABS: ABG BASE EXCESS 6.8 (-2.0-2.0); ABG HCO3 34.4 MEQ/L (22.0-26.0); ABG O2 SATURATION 92.2 % (95.0-99.0); ABG PARTIAL PRESSURE O2 63.9 mmHg (75.0-100.0); ABG STANDARD HCO3 30.6 MEQ/L (22.0-26.0); ABG TOTAL CO2 36.5 MEQ/L (23.0-31.0); ABG pH (ARTERIAL) 7.312 UNITS (7.350-7.450)
[2018-08-10 05:36] LABS: ABG PARTIAL PRESSURE CO2 69.5 mmHg (35.0-45.0)
[2018-08-10] MEDS ORDERED: LEVOTHYROXINE 125MCG TABLET (0.125MG) PO SCH (06:00)
[2018-08-10] MEDS ORDERED: HEPARIN SOD (PORCINE) 5000 UNITS/ML VIAL SQ SCH (06:00)
[2018-08-10] MEDS: HumaLOG INSULIN (NovoLOG) PER UNIT SC SCH ×4 (07:30→21:00)
[2018-08-10] MEDS: SPIRONOLACTONE 50 MG TAB PO SCH (08:27)
[2018-08-10] MEDS: **hydrALAZINE** 50 MG TAB PO SCH (08:27)
[2018-08-10] MEDS: DOCUSATE SODIUM 100 MG CAP PO SCH (08:28)
[2018-08-10] MEDS: ISOSORBIDE DIN. (ISORDIL) 5 MG TAB PO SCH ×3 (08:28→21:07)
[2018-08-10] MEDS: METOPROLOL TARTRATE 100 MG TAB PO SCH ×2 (08:28→21:00)
[2018-08-10] MEDS: ASPIRIN 325 MG TAB PO SCH (08:28)
[2018-08-10] MEDS: PHENYTOIN ER 100 MG CAP PO SCH (08:28)
[2018-08-10] MEDS: SENOKOT S TAB PO SCH (08:29)
[2018-08-10] MEDS: MIRALAX *UNIT DOSE* 17GM PACKET PO SCH (08:29)
[2018-08-10] MEDS: guaiFENesin ER 600 MG TAB PO SCH ×2 (08:29→21:00)
[2018-08-10] MEDS: PANTOPRAZOLE 40MG TAB (PROTONIX) PO SCH (08:29)
[2018-08-10] MEDS ORDERED: predniSONE 10 MG TAB PO SCH (09:00)
[2018-08-10] MEDS ORDERED: ARIPiprazole 2 MG TAB PO SCH (09:00)
[2018-08-10] MEDS ORDERED: TORSEMIDE 20 MG TAB PO SCH (09:00)
[2018-08-10] MEDS ORDERED: CLOPIDOGREL 75 MG TAB PO SCH (09:00)
[2018-08-10] MEDS ORDERED: GABAPENTIN 100 MG CAP PO SCH (09:00)
[2018-08-10] MEDS ORDERED: CETIRIZINE (ZyrTEC) 10 MG TAB PO SCH (09:00)
[2018-08-10] MEDS: LEVOTHYROXINE 100 MCG (0.1MG) VIAL IV SCH (10:51)
[2018-08-10] MEDS: HYDROCORTISONE 100 MG/2 ML VIAL (J1720) IV SCH ×2 (10:53→19:03)
[2018-08-10] MEDS ORDERED: FUROSEMIDE 100 MG/10 ML VIAL (J1940) IV ONE ×2 (11:00→17:30)
--- NOTE | 2018-08-10 12:04 | NUR ---
Recommend NPO diet d/t delayed swallow, multiple swallows, and throat clearing demonstrated across consistencies. Recommend Cookie Swallow to r/o aspiration and assess safety of PO intake. Addendum: 08/10/[address] [facility] Amended: Links added.
--- NOTE | 2018-08-10 12:40 | IPNPDOC ---
Subjective Date Seen The patient was seen on 08/10/18. Subjective Chief Complaint/HPI on BIPAP - aouses to verbal stimuli but urrutia snot follow commands or talk Constitutional: Denies: Chills, Fever Pulmonary: Reports: Dyspnea Cardiovascular: Denies: Chest Pain Gastrointestinal: Denies: Nausea, Vomiting, Abdominal Pain, Diarrhea, Constipation Objective Physical Examination General Exam: Positive: Mild Distress; Negative: Alert, Cooperative, No Acute Distress ENT Exam: Positive: Atraumatic Neck Exam: Positive: JVD Chest Exam: Positive: Rales (bibasilar); Negative: Rhonchi, Wheezing Heart Exam: Positive: Rate Normal, Regular Rhythm Abdomen Exam: Positive: Normal bowel sounds, Soft, Tenderness Extremity Exam: Positive: Edema Skin Exam: Positive: Rash A-FIB/CHADSVASC A-FIB History Current/History of A-Fib/PAF?: No Current Oral Anticoagulant The: No Assessment /Plan Problems (1) Diastolic CHF, acute on chronic Status: Acute Problem Text: 08/10 changed to fur 60 IV x 2 c minimal UOP 08/10 BNP 8580 06/30/18 TTE: 1. Normal global left ventricular systolic and diastolic function. 2. Mildly enlarged left atrium with trace mitral regurgitation. 3. Moderate tricuspid regurgitation with moderate pulmonary hypertension and dilated right heart chambers. 4. Trace pericardial effusion. 5. The inferior vena cava was dilated, central venous pressure is most likely elevated. 6. Prior and most recent study on 03/31/2018, no remarkable changes. DD: HAMILTON PALOMO MD 06/30/181907 (2) Respiratory failure with hypoxia and hypercapnia Status: Acute Problem Text: Acute on chronic hypercapnic, hypoxic resp failure likely secondary to decompensated CHF Give single does IV Lasix and monitor urine output and monitor for improvement of resp status SBP 90 - 98 so will need to monitor closely On prednisone 10 mg daily on admission - Hydrocortizsone ordered for potential adrenal crisis cont BIPAP - Dr. Mathews consulted for assistance with BIPAP and tx of resp failure Stop Hydralazine due to hypotension - Not taking pos currently but has Isordil and Spironolactone on order once taking pos. (3) Elevated troponin Status: Acute Problem Text: favoring 2 CLARIBEL/CHF peak T-I 0.4 08/10 received clopid load c asa, + HI statin (4) ARF (acute renal failure) Status: Acute Problem Text: monitor trend with diuresis (5) Anemia of chronic disease Status: Chronic Problem Text: baseline hgb low 8s 08/10 7.7 partially dilutional; therefore, + 1u Hgb down from baseline in part related to dilution from CHF but will give 1 unit PRBC slowly due to elevated Troponins and concern for ischemia. consent obtained from HCP - Sharda Norris ( sister) (6) Hypothyroidism Status: Chronic Problem Text: 08/10 TSH 70, FT4 0.4 HD LT4 125 (? compliance 03/2018 TSH 0.8) Give IV Levothyroxine until able to take pos (7) Metabolic encephalopathy Status: Acute Problem Text: Multifactorial but primarily related to COs retention form acute on chronc resp failure. Currently on BIPAP - monitor mental status Per sister, she was up talking and joking in [place] Thursday when deidre bass visited her there. She has some underlying dementia, but normally alert and interactive. (8) ANGELINA on CPAP Status: Chronic (9) Morbid obesity with BMI of 45.0-49.9, adult Status: Chronic (10) Insulin dependent diabetes mellitus Status: Chronic Problem Text: Cont Levemir and SSI Plan/VTE VTE Prophylaxis Ordered?: Yes (Lovenox) Plan Anticipated Discharge: Assisted VS, I&O, 24H, [facility] Vital Signs/I&O Vital Signs Date Time Temp Pulse Resp B/P (MAP) Pulse Ox O2 Delivery O2 Flow Rate FiO2 08/10/18 08:28 67 90/43 08/10/18 08:00 97.3 12 94 25 08/10/18 02:58 BIPAP/CPAP 08/10/18 02:00 1.0 l I&O- Last 24 Hours up to 6 AM 08/10/18 06:00 Intake Total 50 ml Output Total 0 ml Balance 50 ml Laboratory Data 24H LABS Laboratory Tests 2 08/09/18 17:45: Immature Granulocyte % (Auto) 1.7, White Blood Count 7.2, Red Blood Count 2.74L, Hemoglobin 8.2L, Hematocrit 28.6L, Mean Corpuscular Volume 104.4H, Mean C orpuscular Hemoglobin 29.9, Mean Corpuscular Hemoglobin Concent 28.7L, Red Cell Distribution Width 15.8H, Platelet Count 271, Neutrophils (%) (Auto) 60.1, Lymphocytes (%) (Auto) 14.1L, Monocytes (%) (Auto) 16.2H, Eosinophils (%) (Auto) 7.5H, Basophils (%) (Auto) 0.4, Neutrophils # (Auto) 4.3, Lymphocytes # (Auto) 1.0L, Monocytes # (Auto) 1.2H, Eosinophils # (Auto) 0.5, Basophils # (Auto) 0.0, Nucleated Red Blood Cells % (auto) 0.0, Anion Gap 4L, Glomerular Filtration Rate 41.9L, Calcium Level 7.4L, Aspartate Amino Transf (AST/SGOT) 13, Alanine Aminotransferase (ALT/SGPT) 13, Alkaline Phosphatase 90, Total Bilirubin 0.2, Direct Bilirubin < 0.1, Ammonia 55H, Total Creatine Kinase 75, Creatine Kinase MB 2.0, Creatine Kinase MB Relative Index 2.13, Troponin I 0.31H, SW-[id number]-[id number]-Type Natriuretic Peptide 8579H, Total Protein 6.6, Albumin 2.9L, Albumin/Globulin Ratio 0.78L, Thyroid Stimulating Hormone (TSH) 69.500H, Phenytoin (Dilantin) Level 11.9 08/09/18 18:14: Blood Gas Bicarbonate Standard 26.3H, Arterial Blood pH 7.282L, Arterial Blood Partial Pressure CO2 64.0*H, Arterial Blood Partial Pressure O2 144.3H, Arterial Blood Total CO2 31.5H, Arterial Blood HCO3 29.5H, Arterial Blood Base Excess 2.0, Arterial Blood Oxygen Saturation 99.3H 08/09/18 23:27: Bedside Glucose (Misc Panel) 93 08/10/18 02:05: Blood Gas Bicarbonate Standard 32.6H, Arterial Blood pH 7.247*L, Arterial Blood Partial Pressure CO2 89.4*H, Arterial Blood Partial Pressure O2 106.8H, Arterial Blood Total CO2 40.8H, Arterial Blood HCO3 38.1H, Arterial Blood Base Excess 8.8H, Arterial Blood Oxygen Saturation 98.0 08/10/18 02:17: Nucleated Red Blood Cells % (auto) 0.0, D-Dimer, Quantitative 1297.51H, Anion Gap 5L, Glomerular Filtration Rate 41.0L, Blood Urea Nitrogen 24H, Creatinine 1.62H, Sodium Level 143, Potassium Level 4.2, Chloride Level 103, Carbon Dioxide Level 35H, Calcium Level 7.3L, Troponin I 0.44#H, Free Thyroxine 0.44L 08/10/18 05:20: Blood Gas Bicarbonate Standard 30.6H, Arterial Blood pH 7.312L, Arterial Blood Partial Pressure CO2 69.5*H, Arterial Blood Partial Pressure O2 63.9L, Arterial Blood Total CO2 36.5H, Arterial Blood HCO3 34.4H, Arterial Blood Base Excess 6.8H, Arterial Blood Oxygen Saturation 92.2L 08/10/18 11:56: 08/10/18 12:19: CBC/BMP Laboratory Tests 08/09/18 17:45 Red Blood Count 2.74 L, Mean Corpuscular Volume 104.4 H, Mean Corpuscular Hemoglobin 29.9, Mean Corpuscular Hemoglobin Concent 28.7 L, Red Cell Distribution Width 15.8 H, Neutrophils (%) (Auto) 60.1, Lymphocytes (%) (Auto) 14.1 L, Monocytes (%) (Auto) 16.2 H, Eosinophils (%) (Auto) 7.5 H, Basophils (%) (Auto) 0.4, Neutrophils # (Auto) 4.3, Lymphocytes # (Auto) 1.0 L, Monocytes # (Auto) 1.2 H, Eosinophils # (Auto) 0.5, Basophils # (Auto) 0.0 08/10/18 02:17 Red Blood Count 2.62 L, Mean Corpuscular Volume 102.7 H, Mean Corpuscular Hemoglobin 29.4, Mean Corpuscular Hemoglobin Concent 28.6 L, Red Cell Distribution Width 15.6 H, Calcium Level 7.3 L Microbiology Microbiology 08/09/18 Blood Culture, Received Pending 08/09/18 Blood Culture, Received Pending MISAEL MAYEN PA-C August 10, 2018 12:40 Antoni Mcdaniel M.D. August 10, 2018 17:46
[2018-08-10] MEDS: HEPARIN SOD (PORCINE) 5000 UNITS/ML VIAL SQ SCH ×2 (14:32→21:07)
[2018-08-10] MEDS ORDERED: VARIBAR NECTAR 40% w/v 240ML SUSP BTL As Ordered ONE (14:32)
[2018-08-10] MEDS ORDERED: VARIBAR PUDDING 40% w/v 230ML TUBE As Ordered ONE (14:32)
[2018-08-10] MEDS: BRIMONIDINE 0.15% OPHTH SOLN 5 ML OU SCH ×2 (14:32→21:11)
[2018-08-10] MEDS ORDERED: E-Z-PAQUE 96% w/w SUSP 176GM BTL As Ordered ONE (14:33)
[2018-08-10] MEDS ORDERED: BARIUM SULFATE 700 MG TABLET (E-Z-DISK) As Ordered ONE (14:55)
--- NOTE | 2018-08-10 15:28 | NUR ---
Pt seen for modified barium swallow study d/t continuous throat clearing throughout clinical swallow evaluation making it difficult to provide differential diagnosis. Pt presents with mild oropharyngeal phase dysphagia as characterized by slow mastication and delay oral transit. Flash penetration noted with thin liquid using a straw. Recommend: Level 2 solids and thin liquids. Meds crushed in puree assist. Supervision during meals to monitor bite size and rate. Dysphagia therapy for self-feeding instruction and safe intake strategies. Addendum: 08/10/18 at 1531 by JANIA MARMOLEJO [facility] [place] Amended: Links added.
--- NOTE | 2018-08-10 16:26 | CR ---
DATE OF PULMONARY CONSULTATION: 08/10/2018 HISTORY OF PRESENT ILLNESS: The patient is a 67-year-old female with a past medical history of chronic obstructive pulmonary disease (COPD), chronic kidney disease (CKD), obstructive sleep apnea (ANGELINA) noncompliant on continuous positive airway pressure (CPAP), seizures, stroke, hypertension, right-sided heart failure, coronary artery disease, breast cancer, and sarcoidosis. The patient was recently hospitalized in July and discharged a few days ago after being admitted for decompensated heart failure with acute on chronic hypercarbic respiratory failure. She was also found on that admission to have acute hypothyroidism and started on Synthroid. She has was discharged to [facility] and she presents now a few days after discharge with complaint of altered mental status. The patient was found to have acute on chronic hypercarbic respiratory failure. Was attempted to be placed on CPAP but became transiently hypoxemic and she was placed on bilevel positive airway pressure (BiPAP) instead overnight and admitted to the intensive care unit (ICU). This morning her arterial blood gas (ABG) shows some improvement in her hypercarbia and the patient is arousable. She is confused and is not oriented to location but is able to answer some questions. She denies any increasing shortness of breath or chest pain currently. She denies any coughing or wheezing. No abdominal pain. PAST MEDICAL HISTORY: 1. COPD. 2. ANGELINA 3. Chronic hypoxemic and hypercarbic respiratory failure. 4. Diabetes complicated by neuropathy. 5. CKD 6. Seizures. 7. History of CVA. 8. History of dementia. 9. Morbid obesity. 10. Hypertension. 11. Right-sided heart failure. 12. Coronary artery disease (CAD). 13. Sarcoidosis. 14. Breast cancer. 15. Hypothyroidism PAST SURGICAL HISTORY: Left-sided mastectomy and hysterectomy. SOCIAL HISTORY: The patient lives at [facility]. Denies history of smoking or other illicit drug use or alcohol. ALLERGIES: To SULFA, LIPITOR, BACLOFEN, CLINDAMYICIN, CYMBALTA, KEPPRA, LISINOPRIL, TOPAMAX, and TRAMADOL. FAMILY HISTORY: Mother with a history of diabetes, hypertension, coronary artery disease and brother with a history of asthma and history of hypertension and diabetes. HOME MEDICATIONS: - Abilify - aspirin - Lumigan eye drops - brimonidine eye drops - Symbicort - cetirizine - Colace - vitamin D - gabapentin - Mucinex - Levemir - Humalog - isosorbide dinitrate - Synthroid 125 mcg - lidocaine topical - metformin - metolazone - metoprolol - Protonix - phenytoin - MiraLAX - prednisone 10 mg daily - rosuvastatin - Senna - spironolactone 50 mg daily - torsemide 40 mg twice a day - hydralazine 100 mg three times a day PHYSICAL EXAM: Temperature 97.3. Pulse 67. Blood pressure this morning was 90/43. Oxygen saturation 94% on BiPAP at 25% FiO2. General: The patient is an obese female, is lying in bed, on BiPAP, in no acute distress. Is not using any accessory muscles for respiration. Neck is supple. Unable to appreciate jugular venous distention (JVD) due to body habitus. Cardiovascular: Regular rate and rhythm. Normal S1, S2. Faint murmur auscultated. Pulmonary: Crackles bilaterally more at the bases. Abdomen is obese, soft, nontender, nondistended. In the lower extremities there is wrinkling in her lower extremities bilaterally with no edema. However, there is pitting sacral edema and anasarca in her abdomen. LABS: WBC 6.7. Hemoglobin trended down to 7.7. Platelets are 254. Chemistry: Sodium is 143, potassium 4.2, chloride 103, bicarbonate 35, BUN 24, creatinine 1.62. Glucose is 92. Troponin trending up to 0.44. BNP was 8579. TSH was 69.5. Free T4 was 0.44. Initial ABG was pH of 7.282, pCO2 of 64.0 and pO2 of 144.3. Repeat ABG pH 7.312, pCO2 of 69.5 and a pO2 of 63.9. Chest x-ray showed poor inspiratory effort with cardiomegaly. There is pulmonary vascular congestion and bilateral perihilar alveolar infiltrates consistent pulmonary edema. ASSESSMENT AND PLAN: Ms. Cooney is a 67-year-old female with a past medical history of chronic obstructive pulmonary disease, obstructive sleep apnea noncompliant on CPAP, diabetes, chronic kidney disease, CVA, seizures, with a history of dementia, hypertension, right-sided heart failure, sarcoidosis, history of chronic hypoxemic and hypercarbic respiratory failure, who was recently admitted with decompensated heart failure and acute on chronic hypercarbic respiratory failure, who was discharged after successful diuresis. She presents again a few days later with altered mental status. Her ABG shows again acute on chronic hypercarbic respiratory failure. Her chest x-ray shows evidence of pulmonary vascular congestion and she also has a increased BNP and significant crackles on pulmonary exam and evidence of sacral pitting edema. The patient also with elevated cardiac enzymes likely demand ischemia in the setting of decompensated heart failure. Suspect her acute worsening of her chronic hypercarbia is secondary to decompensated heart failure as well. The patient also has a history of recently diagnosed hypothyroidism and untreated ANGELINA which may also be contributing to her decompensated heart failure. She is on Synthroid but is still significantly hypothyroid on labs 1. Acute on chronic hypercarbic and hypoxemic respiratory failure in the setting of decompensated CHF. 2. Demand ischemia in setting of decompensated CHF 3. Acute on chronic renal failure 4. Chronic steroid use likely 2/2 hx of sarcoidosis 5. Anemia- macrocytic, hx of prior transfusion at last admission 6. Hypothyroidism 7. COPD - Continue with BiPAP for today. The patient was previously on CPAP with a setting of 9 cm of water. We will keep her on BiPAP for now and once improving clinically will change her back to her home CPAP. - Encourage its use nightly. - The patient's blood pressure was borderline today, however suspect she will likely improve with diuresis and therefore, would give her 60 mg IV Lasix and place a Nails to monitor her ins and outs. - Continue to trend her cardiac enzymes. - Would hold hydralazine for now and can continue her isosorbide and spironolactone once the patient is able to take oral meds and if her blood pressure tolerates. - Continue with aspirin. Would hold off on further doses of anticoagulation and Plavix for now. - Once the patient is improving will attempt to wean her off of BiPAP likely tomorrow to nasal cannula oxygen. - The patient is on prednisone chronically likely for sarcoidosis. Would give her stress dose steroids with her hypotension for possible adrenal insufficiency. Would give her 50 mg of hydrocortisone IV every 8 hours for now and continue to monitor. - Continue with her home medications for possible COPD with Symbicort and DuoNebs [id number]. - The patient also with worsening anemia. Given her demand ischemia would transfuse her 1 unit packed red blood cells (PRBC) slowly. Will likely need additional Lasix during the transfusion as well. - Would convert her oral Synthroid to IV until she is able to tolerate oral and will need to followup repeat thyroid panel testing. Deep venous thrombosis (DVT) prophylaxis. Code status: FULL CODE Total critical care time spent not including procedures approximately 1hr and 55mins MTDD
[2018-08-10 20:39] LABS: ALBUMIN 2.9 GM/DL (3.2-5.2); BILIRUBIN,TOTAL 0.4 MG/DL (0.2-1.0); CALCIUM LEVEL 7.7 MG/DL (8.8-10.2); CREATININE FOR GFR 1.27 MG/DL (0.55-1.30); GLOMERULAR FILTRATION RATE 54.3 (>45); POTASSIUM SERUM 3.9 MEQ/L (3.5-5.1); TOTAL PROTEIN 5.9 GM/DL (6.4-8.2)
[2018-08-10 20:42] LABS: HEMATOCRIT 26.4 % (36.0-47.0); MEAN CORPUSCULAR HEMOGLOBIN 29.9 pg (27.0-33.0); MEAN CORPUSCULAR HGB CONC 30.3 g/dl (32.0-36.5); MEAN CORPUSCULAR VOLUME 98.5 fl (80.0-96.0); PLATELET COUNT, AUTOMATED 267 10^3/uL (150-450); RED BLOOD COUNT 2.68 10^6/uL (4.00-5.40); WHITE BLOOD COUNT 5.2 10^3/uL (4.0-10.0)
--- NOTE | 2018-08-10 21:23 | REP ---
Modified barium swallow: CINE radiography. History: Rule out aspiration. Delayed swallowing. Technique: The study is performed with lateral CINE fluorography in the seated position at the level of the pharynx. The study is performed in conjunction with the swallowing therapist who gave the patient varying consistencies of barium labeled ingested material. Initial thin liquid swallow demonstrates a mild amount of transient laryngeal reflux but no evidence of aspiration. No motor discoordination of swallowing was detected. With thicker barium labeled material, there was some pooling in the vallecula but again no evidence of aspiration. No further evidence of laryngeal penetration was observed. Impression: There is slight laryngeal penetration with thin liquids but no evidence of aspiration. 1.3 minutes of fluoroscopy time was utilized. Electronically Signed by Dre Florentino MD 08/10/2018 10:39 P
[2018-08-11] VITALS (9 sets, daily range): BP systolic 122–174; BP diastolic 57–74; O2SAT 99–100
[2018-08-11] MEDS: HYDROCORTISONE 100 MG/2 ML VIAL (J1720) IV SCH ×3 (01:32→17:18)
[2018-08-11 04:29] LABS: BASO % 0.8 % (0.0-1.0); EOS # 0.1 10^3/uL (0.0-0.50); EOS % 2.4 % (0.0-3.0); HEMOGLOBIN 7.8 g/dl (12.0-15.5); LYMPH # 0.7 10^3/uL (1.5-4.5); LYMPH % 14.1 % (24.0-44.0); MEAN CORPUSCULAR HEMOGLOBIN 29.8 pg (27.0-33.0); MEAN CORPUSCULAR VOLUME 99.2 fl (80.0-96.0); MONO # 0.7 10^3/uL (0.0-0.8); MONO % 14.7 % (0.0-5.0); NEUTROPHILS # 3.3 10^3/uL (1.8-7.7); NEUTROPHILS % 66.2 % (36.0-66.0); PLATELET COUNT, AUTOMATED 256 10^3/uL (150-450); RED BLOOD COUNT 2.62 10^6/uL (4.00-5.40)
[2018-08-11 04:56] LABS: ALBUMIN 2.8 GM/DL (3.2-5.2); ALT/SGPT 11 U/L (12-78); BILIRUBIN,TOTAL 0.3 MG/DL (0.2-1.0); BLOOD UREA NITROGEN 23 MG/DL (7-18); CALCIUM LEVEL 7.5 MG/DL (8.8-10.2); CARBON DIOXIDE LEVEL 34 MEQ/L (21-32); CHLORIDE LEVEL 104 MEQ/L (98-107); CREATININE FOR GFR 1.12 MG/DL (0.55-1.30); GLOMERULAR FILTRATION RATE > 60.0 (>45); GLUCOSE, FASTING 81 MG/DL (70-100); MAGNESIUM LEVEL 2.1 MG/DL (1.8-2.4); POTASSIUM SERUM 3.9 MEQ/L (3.5-5.1); SODIUM LEVEL 144 MEQ/L (136-145); TOTAL PROTEIN 5.8 GM/DL (6.4-8.2); TROPONIN I 0.23 NG/ML (< 0.10)
[2018-08-11 05:43] LABS: ABG BASE EXCESS 6.4 (-2.0-2.0); ABG HCO3 31.9 MEQ/L (22.0-26.0); ABG O2 SATURATION 98.3 % (95.0-99.0); ABG PARTIAL PRESSURE CO2 51.4 mmHg (35.0-45.0); ABG PARTIAL PRESSURE O2 112.8 mmHg (75.0-100.0); ABG STANDARD HCO3 30.3 MEQ/L (22.0-26.0); ABG TOTAL CO2 33.5 MEQ/L (23.0-31.0); ABG pH (ARTERIAL) 7.411 UNITS (7.350-7.450)
[2018-08-11] MEDS: HEPARIN SOD (PORCINE) 5000 UNITS/ML VIAL SQ SCH ×2 (05:50→14:33)
[2018-08-11] MEDS: HumaLOG INSULIN (NovoLOG) PER UNIT SC SCH ×4 (07:53→21:00)
[2018-08-11] MEDS: SYMBICORT 160/4.5MCG INHALER 6GM INH SCH ×2 (08:20→20:17)
--- NOTE | 2018-08-11 08:41 | IPNPDOC ---
Subjective Date Seen The patient was seen on 08/11/18. Subjective Chief Complaint/HPI opens eyes a little more easily this am and mumbles yes or no to questions, but not speaking and falls asleep rapidly afterward Constitutional: Denies: Chills, Fever Pulmonary: Denies: Dyspnea, Cough Gastrointestinal: Denies: Nausea, Vomiting, Abdominal Pain, Diarrhea, Constipation Objective Physical Examination General Exam: Negative: Alert (see above), Cooperative, No Acute Distress ENT Exam: Positive: Atraumatic Neck Exam: Positive: JVD Chest Exam: Positive: Rales (bibasilar); Negative: Rhonchi, Wheezing Heart Exam: Positive: Rate Normal, Regular Rhythm Abdomen Exam: Positive: Normal bowel sounds, Soft, Tenderness Extremity Exam: Positive: Edema (slightly decreased c/w yesterday) A-FIB/CHADSVASC A-FIB History Current/History of A-Fib/PAF?: No Current Oral Anticoagulant The: No Assessment /Plan Problems (1) Diastolic CHF, acute on chronic Status: Acute Problem Text: 08/11 - still little urine output with additional Lasix given last pm. Give 80 mg this am and monitor I & O 08/10 changed to fur 60 IV x 2 c minimal UOP 08/10 BNP 8580 06/30/18 TTE: 1. Normal global left ventricular systolic and diastolic function. 2. Mildly enlarged left atrium with trace mitral regurgitation. 3. Moderate tricuspid regurgitation with moderate pulmonary hypertension and dilated right heart chambers. 4. Trace pericardial effusion. 5. The inferior vena cava was dilated, central venous pressure is most likely elevated. 6. Prior and most recent study on 03/31/2018, no remarkable changes. DD: HAMILTON PALOMO MD 06/30/181907 (2) Respiratory failure with hypoxia and hypercapnia Status: Acute Problem Text: 08/11 - Acute on chronic hypercapnic, hypoxic resp failure likely secondary to decompensated CHF - see above cont BIPAP - Dr. Mathews consulted for assistance with BIPAP and tx of resp failure Hydralazine d/c'd due to hypotension - Not taking pos currently but has Isordil and Spironolactone on order once taking pos. (3) Elevated troponin Status: Acute Problem Text: 08/11 - favoring 2 CLARIBEL/CHF - trending down peak T-I 0.4 08/10 received clopid load c asa, + HI statin (4) ARF (acute renal failure) Status: Acute Problem Text: 08/11 - improving with diuretic tx (5) Anemia of chronic disease Status: Chronic Problem Text: baseline hgb low 8s 08/11 - s/p 1 unit PRBC yesterday. (Hgb franc from 7.7 to 8 after transfusion) Hgb down slightly today - Now 7.8 - monitor trend 08/10 7.7 partially dilutional; therefore, + 1u Hgb down from baseline in part related to dilution from CHF but will give 1 unit PRBC slowly due to elevated Troponins and concern for ischemia. consent obtained from HCP - Sharda Norris ( sister) (6) Hypothyroidism Status: Chronic Problem Text: 08/10 TSH 70, FT4 0.4 HD LT4 125 (? compliance 03/2018 TSH 0.8) started on IV Levothyroxine 08/10 - until able to take pos (7) Metabolic encephalopathy Status: Acute Problem Text: Multifactorial but primarily related to COs retention form acute on chronc resp failure. Currently on BIPAP - monitor mental status Per sister, she was up talking and joking in [place] Thursday when deidre bass visited her there. She has some underlying dementia, but normally alert and interactive. 08/11 Continue to monitor - may need to consider brain imaging (8) ANGELINA on CPAP Status: Chronic Problem Text: non-compliant with CPAP which likely contributed to her recurrent resp failure with hypercapnia - may need to discuss pursuing palliative care if unble ot comply with CPAP at [place] (9) Morbid obesity with BMI of 45.0-49.9, adult Status: Chronic (10) Insulin dependent diabetes mellitus Status: Chronic Problem Text: D/C Levemir since not eating and blood sugars running 80s - 90. Cont SSI (11) On prednisone therapy Status: Chronic Problem Text: On chronic prednisone for Sarcoid most likely - Currently on Hydrocortisone for potential adrenal insuf/prevention of adrenal crisis. Plan/VTE VTE Prophylaxis Ordered?: Yes (Lovenox) Plan Anticipated Discharge: Snf VS, I&O, 24H, Fishbone Vital Signs/I&O Vital Signs Date Time Temp Pulse Resp B/P (MAP) Pulse Ox O2 Delivery O2 Flow Rate FiO2 08/11/18 08:20 25 08/11/18 08:20 81 17 08/11/18 08:20 100 BIPAP/CPAP 08/11/18 04:00 97.9 136/59 (84) 08/10/18 18:00 2.0 I&O- Last 24 Hours up to 6 AM 08/11/18 06:00 Intake Total 620 ml Output Total 1925 ml Balance -1305 ml Laboratory Data 24H LABS Laboratory Tests 2 08/10/18 11:56: Activated Partial Thromboplast Time 28.1, Ammonia 20, Troponin I 0.44H 08/10/18 12:19: Bedside Glucose (Misc Panel) 89 08/10/18 17:09: Bedside Glucose (Misc Panel) 88 08/10/18 19:51: Nucleated Red Blood Cells % (auto) 0.0, Anion Gap 4L, Glomerular Filtration Rate 54.3, Blood Urea Nitrogen 23H, Creatinine 1.27, Sodium Level 142, Potassium Level 3.9, Chloride Level 103, Carbon Dioxide Level 35H, Calcium Level 7.7L, A spartate Amino Transf (AST/SGOT) 15, Alanine Aminotransferase (ALT/SGPT) 11L, Alkaline Phosphatase 80, Total Bilirubin 0.4#, Total Protein 5.9L, Albumin 2.9L, Albumin/Globulin Ratio 0.97L 08/11/18 04:01: Immature Granulocyte % (Auto) 1.8, White Blood Count 5.0, Red Blood Count 2.62L, Hemoglobin 7.8L, Hematocrit 26.0L, Mean Corpuscular Volume 99.2H, Mean Corpuscular Hemoglobin 29.8, Mean Corpuscular Hemoglobin Concent 30.0L, Red Cell Distribution Width 15.2H, Platelet Count 256, Neutrophils (%) (Auto) 66.2H, Lymphocytes (%) (Auto) 14.1L, Monocytes (%) (Auto) 14.7H, Eosinophils (%) (Auto) 2.4, Basophils (%) (Auto) 0.8, Neutrophils # (Auto) 3.3, Lymphocytes # (Auto) 0.7L, Monocytes # (Auto) 0.7, Eosinophils # (Auto) 0.1, Basophils # (Auto) 0.0, Nucleated Red Blood Cells % (auto) 0.0, Anion Gap 6L, Glomerular Filtration Rate > 60.0, Blood Urea Nitrogen 23H, Creatinine 1.12, Sodium Level 144, Potassium Level 3.9, Chloride Level 104, Carbon Dioxide Level 34H, Calcium Level 7.5L, Aspartate Amino Transf (AST/SGOT) 13, Alanine Aminotransferase (ALT/SGPT) 11L, Alkaline Phosphatase 82, Total Bilirubin 0.3, Total Protein 5.8L, Albumin 2.8L, Magnesium Level 2.1, Troponin I 0.23#H, Albumin/Globulin Ratio 0.93L 08/11/18 05:30: Blood Gas Bicarbonate Standard 30.3H, Arterial Blood pH 7.411, Arterial Blood Partial Pressure CO2 51.4H, Arterial Blood Partial Pressure O2 112.8H, Arterial Blood Total CO2 33.5H, Arterial Blood HCO3 31.9H, Arterial Blood Base Excess 6.4H, Arterial Blood Oxygen Saturation 98.3 CBC/BMP Laboratory Tests 08/10/18 19:51 Red Blood Count 2.68 L, Mean Corpuscular Volume 98.5 H, Mean Corpuscular Hemoglobin 29.9, Mean Corpuscular Hemoglobin Concent 30.3 L, Red Cell Distribution Width 15.4 H, Calcium Level 7.7 L, Aspartate Amino Transf (AST/SGOT) 15, Alanine Aminotransferase (ALT/SGPT) 11 L, Alkaline Phosphatase 80, Total Bilirubin 0.4 #, Total Protein 5.9 L, Albumin 2.9 L 08/11/18 04:01 Red Blood Count 2.62 L, Mean Corpuscular Volume 99.2 H, Mean Corpuscular Hemoglobin 29.8, Mean Corpuscular Hemoglobin Concent 30.0 L, Red Cell Distribution Width 15.2 H, Calcium Level 7.5 L, Aspartate Amino Transf (AST/SGOT) 13, Alanine Aminotransferase (ALT/SGPT) 11 L, Alkaline Phosphatase 82, Total Bilirubin 0.3, Total Protein 5.8 L, Albumin 2.8 L, Neutrophils (%) (Auto) 66.2 H, Lymphocytes (%) (Auto) 14.1 L, Monocytes (%) (Auto) 14.7 H, Eosinophils (%) (Auto) 2.4, Basophils (%) (Auto) 0.8, Neutrophils # (Auto) 3.3, Lymphocytes # (Auto) 0.7 L, Monocytes # (Auto) 0.7, Eosinophils # (Auto) 0.1, Basophils # (Auto) 0.0 Microbiology Microbiology 08/09/18 Blood Culture - Preliminary, Resulted No growth after 24 hours . All specim... 08/09/18 Blood Culture - Preliminary, Resulted No growth after 24 hours . All specim... MISAEL MAYEN PA-C August 11, 2018 08:41
[2018-08-11] MEDS ORDERED: FUROSEMIDE 100 MG/10 ML VIAL (J1940) IV ONE (08:45)
[2018-08-11] MEDS ORDERED: PANTOPRAZOLE 40MG INJ (PROTONIX) (C9113) IV SCH (09:00)
[2018-08-11] MEDS: PHENYTOIN ER 100 MG CAP PO SCH (09:55)
[2018-08-11] MEDS: PANTOPRAZOLE 40MG TAB (PROTONIX) PO SCH (09:55)
[2018-08-11] MEDS: DOCUSATE SODIUM 100 MG CAP PO SCH (09:55)
[2018-08-11] MEDS: ACETAMINOPHEN TAB 650MG DOSE (2X325MG) PO PRN ×2 (10:33→20:28)
[2018-08-11] MEDS: SPIRONOLACTONE 50 MG TAB PO SCH (10:39)
[2018-08-11] MEDS: ASPIRIN 325 MG TAB PO SCH (10:39)
[2018-08-11] MEDS: ROSUVASTATIN 10 MG TAB (CRESTOR) PO SCH (10:39)
[2018-08-11] MEDS: ISOSORBIDE DIN. (ISORDIL) 5 MG TAB PO SCH ×3 (10:41→20:28)
[2018-08-11] MEDS: guaiFENesin ER 600 MG TAB PO SCH ×2 (10:42→20:28)
[2018-08-11] MEDS: METOPROLOL TARTRATE 100 MG TAB PO SCH ×2 (10:42→20:28)
[2018-08-11] MEDS: SENOKOT S TAB PO SCH (10:43)
[2018-08-11] MEDS: LEVOTHYROXINE 100 MCG (0.1MG) VIAL IV SCH (10:44)
[2018-08-11] MEDS: SODIUM CHLORIDE 0.9% INJ 10 ML SYR IV SCH (10:49)
[2018-08-11] MEDS: MIRALAX *UNIT DOSE* 17GM PACKET PO SCH (11:14)
[2018-08-11] MEDS: BRIMONIDINE 0.15% OPHTH SOLN 5 ML OU SCH ×2 (14:37→20:29)
[2018-08-11] MEDS: PHENYTOIN 100 MG/4 ML SUSP UDC PO SCH (14:37)
[2018-08-12] VITALS (8 sets, daily range): BP systolic 127–170; BP diastolic 62–72; O2SAT 100
[2018-08-12] MEDS: ACETAMINOPHEN TAB 650MG DOSE (2X325MG) PO PRN (01:01)
[2018-08-12 05:03] LABS: HEMATOCRIT 24.6 % (36.0-47.0); HEMOGLOBIN 7.7 g/dl (12.0-15.5); MEAN CORPUSCULAR HEMOGLOBIN 29.6 pg (27.0-33.0); MEAN CORPUSCULAR HGB CONC 31.3 g/dl (32.0-36.5); MEAN CORPUSCULAR VOLUME 94.6 fl (80.0-96.0); PLATELET COUNT, AUTOMATED 279 10^3/uL (150-450); WHITE BLOOD COUNT 5.7 10^3/uL (4.0-10.0)
[2018-08-12 05:36] LABS: ALBUMIN 2.7 GM/DL (3.2-5.2); ALT/SGPT 16 U/L (12-78); BILIRUBIN,TOTAL 0.3 MG/DL (0.2-1.0); BLOOD UREA NITROGEN 20 MG/DL (7-18); CARBON DIOXIDE LEVEL 36 MEQ/L (21-32); CHLORIDE LEVEL 102 MEQ/L (98-107); CREATININE FOR GFR 1.06 MG/DL (0.55-1.30); GLOMERULAR FILTRATION RATE > 60.0 (>45); GLUCOSE, FASTING 83 MG/DL (70-100); POTASSIUM SERUM 3.2 MEQ/L (3.5-5.1); SODIUM LEVEL 143 MEQ/L (136-145); TOTAL PROTEIN 6.5 GM/DL (6.4-8.2)
--- NOTE | 2018-08-12 05:56 | CCN ---
DATE OF VISIT: 08/11/2018 S: The patient was seen and examined this morning. The patient was on BiPAP overnight. This morning she appears more awake and alert, is able to answer some questions although does appear confused at times. She denies any chest pain currently, no increased shortness of breath, no cough. She denies any abdominal pain, has not had any fevers or chills. The patient was transfused one unit of packed red blood cells (PRBC) yesterday and given additional Lasix for diuresis. PHYSICAL EXAMINATION: VITAL SIGNS: Temperature 97.9, pulse 82, respirations 17, blood pressure 136/59, O2 sat 100% on BiPAP at 25% FiO2. In 620, out 1.9 meters. GENERAL: The patient is an obese female who is lying in bed on BiPAP in no acute distress. She is not using any accessory muscles for respiration. HEENT/NECK: Neck is supple. Pupils are reactive bilaterally. Unable to appreciate jugular venous distention (JVD) due to body habitus. CARDIOVASCULAR: Regular rate and rhythm. Normal S1-S2. A faint murmur auscultated. PULMONARY: Diminished breath sounds bilaterally with some crackles at the bases. ABDOMEN: Obese, soft, nontender, nondistended. LOWER EXTREMITIES: There is no lower extremity edema in her legs bilaterally but there is some pitting sacral edema. LABORATORY DATA: WBC 5.0, hemoglobin 7.8, platelets 256. Chemistry: Sodium 144, potassium 3.9, chloride 104, bicarb 34, BUN 23, creatinine 1.12, glucose is 81, troponin 0.23. ASSESSMENT/PLAN: Mrs. Cooney is a 67-year-old female with a past medical history of chronic pulmonary obstructive disease (COPD), obstructive sleep apnea (ANGELINA) noncompliant on C-PAP, diabetes, chronic kidney disease (CKD), cerebral vascular accident (CVA), seizures with history of dementia, hypertension, right-sided heart failure, sarcoidosis, history of chronic hypoxemic and hypercarbic respiratory failure who was recently admitted with altered mental status in the setting of acute on chronic hypercarbic respiratory failure due to decompensated heart failure. She presents again with similar presentation of altered mental status. Her arterial blood gases (ABG) again shows acute on chronic hypercarbic respiratory failure and her chest x-ray shows evidence of pulmonary vascular congestion along with the increased brain natriuretic peptide (BNP) consistent with a decompensated heart failure again. The patient also with elevated cardiac enzymes, likely demand ischemia in the setting of her decompensated heart failure. The patient also has a history of recently diagnosed hypothyroidism which is likely contributing to her heart failure, as well as her noncompliance with her C-PAP. 1. Acute on chronic hypercarbic and hypoxemic respiratory failure in the setting of decompensated congestive heart failure (CHF). 2. Demand ischemia due to decompensated CHF. 3. Acute on chronic renal failure. 4. Chronic steroid use likely secondary to history of sarcoidosis. 5. Anemia macrocytic. 6. Hypothyroidism. 7. Chronic pulmonary obstructive disease. The patient's ABG this morning shows improvement. Will wean her off the nasal cannula during the day although she was satting 92-93% on room air. Will put her on Bicap at night. Continue with diuresis as per primary team and will continue to monitor her in and out. The patient's renal function is improving with diuresis consistent with the as suspected diagnosis of cardiorenal syndrome. Her blood pressure has also improved with diuresis. Can continue with her spironolactone and isosorbide since her blood pressures tolerating and would continue to hold hydralazine for now. The patient's cardiac enzymes are trending down. Will continue with aspirin and would not start other anticoagulation or Plavix for now. The patient was started on hydrocortisone 50 mg intravenous (IV) every 8 hours for possible adrenal insufficiency due to her chronic steroid use. Will taper her steroids to hydrocortisone 50 mg every 12 and continue with the slow taper. Continue with Symbicort and DuoNebs for her history of possible chronic pulmonary obstructive disease (COPD). The patient is status post one unit of packed red blood cells (RBC) with somewhat appropriate response. She has a history of previous transfusions as well. The patient likely with anemia of chronic of chronic disease but would need further workup. Continue with IV Synthroid into she is able to tolerate orals. Deep venous thrombosis (DVT) prophylaxis. CODE STATUS: Full code. Total critical care time spent not including procedures: Approximately 30 minutes. MTDD
[2018-08-12] MEDS ORDERED: HYDROCORTISONE 100 MG/2 ML VIAL (J1720) IV SCH (06:00)
[2018-08-12] MEDS: HEPARIN SOD (PORCINE) 5000 UNITS/ML VIAL SQ SCH ×3 (06:00→22:35)
[2018-08-12] MEDS: HumaLOG INSULIN (NovoLOG) PER UNIT SC SCH ×4 (07:30→21:00)
[2018-08-12] MEDS: SYMBICORT 160/4.5MCG INHALER 6GM INH SCH ×2 (08:37→20:35)
--- NOTE | 2018-08-12 09:09 | IPNPDOC ---
Subjective Date Seen The patient was seen on 08/12/18. Subjective Chief Complaint/HPI Bright, alert, talkative. No complaints other than her buttock is sore Constitutional: Denies: Chills, Fever Pulmonary: Denies: Dyspnea, Cough Cardiovascular: Denies: Chest Pain, Palpitations, Orthopnea Gastrointestinal: Denies: Nausea, Vomiting, Abdominal Pain, Diarrhea, Constipation Objective Physical Examination General Exam: Positive: Alert, Cooperative, No Acute Distress ENT Exam: Positive: Atraumatic Chest Exam: Positive: Clear to auscultation; Negative: Rales, Rhonchi, Wheezing Heart Exam: Positive: Rate Normal, Regular Rhythm Abdomen Exam: Positive: Normal bowel sounds, Soft, Tenderness Extremity Exam: Negative: Edema A-FIB/CHADSVASC A-FIB History Current/History of A-Fib/PAF?: No Current Oral Anticoagulant The: No Assessment /Plan Problems (1) Diastolic CHF, acute on chronic Status: Acute Problem Text: HD; torse 40 BID, metoz 5 qW, kacie 5 08/12 - Apears more compensated today. I will switch to her usual dose of Tors emide, but we will need to monitor clinically for signs of recurrent CHF decompensation. It is our theory that the dose when was on at the [place] may not have been high enough to prevent decompensation and that is why she developed acute resp failure after only 2 days back at the [place] after her last hosp italization 08/11 - still little urine output with additional Lasix given last pm. Give 80 mg this am and monitor I & O 08/10 changed to fur 60 IV x 2 c minimal UOP 08/10 BNP 8580 06/30/18 TTE: 1. Normal global left ventricular systolic and diastolic function. 2. Mildly enlarged left atrium with trace mitral regurgitation. 3. Moderate tricuspid regurgitation with moderate pulmonary hypertension and dilated right heart chambers. 4. Trace pericardial effusion. 5. The inferior vena cava was dilated, central venous pressure is most likely elevated. 6. Prior and most recent study on 03/31/2018, no remarkable changes. DD: HAMILTON PALOMO MD 06/30/[id number] (2) Respiratory failure with hypoxia and hypercapnia Status: Acute Problem Text: 08/11 - Acute on chronic hypercapnic, hypoxic resp failure likely secondary to decompensated CHF in combination with ANGELINA See above regarding diuresis Patient previously on CPAP - now on BIPAP - will likely go back on BIPAP at current setting 03/[address] Mathews Hydralazine d/c'd due to hypotension - Bakc on Isordil and Spironolactone now that she is taking pos Monitor BP with restart of Torsemide and consider Hydralizine if needed (3) Elevated troponin Status: Acute Problem Text: 08/11 - favoring 2 CLARIBEL/CHF - trending down Cont ASA and statin peak T-I 0.4 08/10 received clopid load c asa, + HI statin (4) ARF (acute renal failure) Status: Acute Problem Text: 08/12 - resolved with diuresis (5) Anemia of chronic disease Status: Chronic Problem Text: Anemia related to chronic disease in part from severe hypothyroidism baseline hgb low 8s 08/11 7.7 check stool occult, Fe and EPO levels (tc IV Fe +/- EPA) 08/10 7.7 partially dilutional; therefore, + 1u Hgb down from baseline in part related to dilution from CHF but will give 1 unit PRBC slowly due to elevated Troponins and concern for ischemia. consent obtained from HCP - Sharda Norris ( sister) (6) Hypothyroidism Status: Chronic Problem Text: 08/11 - switch back to oral Levothyroxie today - 08/10 TSH 70, FT4 0.4 HD LT4 125 (? compliance 03/2018 TSH 0.8) started on IV Levothyroxine 08/10 - until able to take pos (7) Metabolic encephalopathy Status: Acute Problem Text: Multifactorial but primarily related to COs retention form acute on chronc resp failure. Currently on BIPAP - monitor mental status Per sister, she was up talking and joking in [place] Thursday when deidre bass visited her there. She has some underlying dementia, but normally alert and interactive. 08/11 Continue to monitor - may need to consider brain imaging (8) ANGELINA on CPAP Status: Chronic Problem Text: Normally on CPAP ? compliance - currently on BIPAP 03/11 - will likely remain on BIPAP at upon transfer back o [place] (9) Morbid obesity with BMI of 45.0-49.9, adult Status: Chronic (10) Insulin dependent diabetes mellitus Status: Chronic Problem Text: D/C Levemir since not eating and blood sugars running 80s - 90. Cont SSI (11) On prednisone therapy Status: Chronic Problem Text: On chronic prednisone for Sarcoid most likely - Currently on Hydrocortisone for potential adrenal insuf/prevention of adrenal crisis. wean hydrocortisone back to usual oral prednisone dose Plan/VTE VTE Prophylaxis Ordered?: Yes (Lovenox) Plan Anticipated Discharge: Custodial Disposition Back to [facility] once stable VS, I&O, 24H, Fishbone Vital Signs/I&O Vital Signs Date Time Temp Pulse Resp B/P (MAP) Pulse Ox O2 Delivery O2 Flow Rate FiO2 08/12/18 04:26 25 08/12/18 01:15 100 08/12/18 00:30 1.0 08/12/18 00:00 98.6 72 18 170/71 (104) 08/11/18 16:00 Nasal Cannula I&O- Last 24 Hours up to 6 AM 08/12/18 06:00 Intake Total 640 ml Output Total 2325 ml Balance -1685 ml Laboratory Data 24H LABS Laboratory Tests 2 08/11/18 13:03: Bedside Glucose (Misc Panel) 91 08/11/18 17:19: Bedside Glucose (Misc Panel) 118H 08/11/18 22:00: Bedside Glucose (Misc Panel) 148H 08/12/18 04:45: Nucleated Red Blood Cells % (auto) 0.0, Anion Gap 5L, Glomerular Filtration Rate > 60.0, Blood Urea Nitrogen 20H, Creatinine 1.06, Sodium Level 143, Potassium Level 3.2L, Chloride Level 102, Carbon Dioxide Level 36H, Calcium Level 8.0L, Aspartate Amino Transf (AST/SGOT) 23, Alanine Aminotransferase (ALT/SGPT) 16, Alkaline Phosphatase 81, Total Bilirubin 0.3, Total Protein 6.5, Albumin 2.7L, Albumin/Globulin Ratio 0.71L 08/12/18 08:03: Bedside Glucose (Misc Panel) 90 CBC/BMP Laboratory Tests 08/12/18 04:45 Red Blood Count 2.60 L, Mean Corpuscular Volume 94.6, Mean Corpuscular Hemoglobin 29.6, Mean Corpuscular Hemoglobin Concent 31.3 L, Red Cell Distribution Width 14.9 H, Calcium Level 8.0 L, Aspartate Amino Transf (AST/SGOT) 23, Alanine Aminotransferase (ALT/SGPT) 16, Alkaline Phosphatase 81, Total Bilirubin 0.3, Total Protein 6.5, Albumin 2.7 L Microbiology Microbiology 08/09/18 Blood Culture - Preliminary, Resulted No Growth after 48 hours. All Specime... 08/09/18 Blood Culture - Preliminary, Resulted No Growth after 48 hours. All Specime... MISAEL MAYEN PA-C August 12, 2018 09:09 Antoni Mcdaniel M.D. August 12, 2018 16:05
[2018-08-12] MEDS: ROSUVASTATIN 10 MG TAB (CRESTOR) PO SCH (09:16)
[2018-08-12] MEDS: ASPIRIN 325 MG TAB PO SCH (09:16)
[2018-08-12] MEDS: MIRALAX *UNIT DOSE* 17GM PACKET PO SCH (09:16)
[2018-08-12] MEDS: ISOSORBIDE DIN. (ISORDIL) 5 MG TAB PO SCH ×3 (09:16→20:48)
[2018-08-12] MEDS: SENOKOT S TAB PO SCH (09:18)
[2018-08-12] MEDS: SPIRONOLACTONE 50 MG TAB PO SCH (09:18)
[2018-08-12] MEDS: DOCUSATE SODIUM 100 MG CAP PO SCH (09:18)
[2018-08-12] MEDS: guaiFENesin ER 600 MG TAB PO SCH ×2 (09:18→20:49)
[2018-08-12] MEDS: PHENYTOIN 100 MG/4 ML SUSP UDC PO SCH (09:19)
[2018-08-12] MEDS: METOPROLOL TARTRATE 100 MG TAB PO SCH ×2 (09:19→20:49)
[2018-08-12] MEDS: SODIUM CHLORIDE 0.9% INJ 10 ML SYR IV SCH (09:20)
[2018-08-12] MEDS: PANTOPRAZOLE 40MG TAB (PROTONIX) PO SCH (09:51)
[2018-08-12] MEDS: TORSEMIDE 20 MG TAB PO SCH ×2 (09:52→16:29)
[2018-08-12] MEDS: predniSONE 10 MG TAB PO SCH (09:52)
[2018-08-12] MEDS: LEVOTHYROXINE 125MCG TABLET (0.125MG) PO SCH (09:52)
[2018-08-12] MEDS: BRIMONIDINE 0.15% OPHTH SOLN 5 ML OU SCH ×2 (14:04→21:00)
[2018-08-12] MEDS ORDERED: POTASSIUM CHLORIDE 10 MEQ SR TABLET PO ONE (16:00)
[2018-08-12] MEDS: NORCO, ANEXSIA 5/325MG TABLET (HYDROcodone/ACETAMINOPHEN) PO PRN (20:50)
--- NOTE | 2018-08-12 21:41 | CCN ---
DATE: 08/12/2018 The patient was seen and examined this morning during rounds. She appears to be at her baseline mental status. Currently she is awake, alert and fully able to be answer questions; appears oriented. Her lethargy and confusion has improved. She currently denies any chest pain. No shortness of breath or cough. She has been using BiPap while in the ICU and on questioning she does report [facility]. PHYSICAL EXAMINATION Vitals: Temperature 98.8, pulse 76, respirations 12, blood pressure was 157/71, O2 sat 99% on 1 liter nasal cannula. Ins 580, outs 2.7 liters. General: The patient is an obese female who is sitting in bed on nasal cannula oxygen and in no acute distress. Is not using accessory muscles for respiration. HEENT: Neck is supple. There is no appreciable JVD. Mucous membranes are moist. Pupils are reactive bilaterally. Cardiovascular: Regular rate and rhythm. Normal S1-S2. Faint murmur auscultated. Pulmonary: Decreased breath sounds bilaterally with no wheezing, rales or rhonchi. Abdomen is obese, soft, nontender, nondistended. Lower extremities: There is no lower extremity edema in her legs bilaterally but there is some mild pitting sacral edema. LABORATORY DATA WBC 5.7, hemoglobin 7.7, platelets 279. Chemistry: Sodium 143, potassium 3.2, chloride 102, bicarb 36, BUN 20, creatinine 1.06, glucose is 83. ASSESSMENT/PLAN Ms. Cooney is a 67-year-old female with past medical history of chronic obstructive pulmonary disease (COPD), obstructive sleep apnea (ANGELINA), with questionable compliance on C-PAP, diabetes, chronic kidney disease (CKD), cerebrovascular accident (CVA), seizures and history of dementia, hypertension, right-sided heart failure, sarcoidosis, history of chronic hypoxemic hypercarbic respiratory failure who is recently with altered mental status in the setting of acute on chronic hypercarbic respiratory failure due to decompensated heart failure. She presents again with similar presentation of altered mental status and her ABG again shows acute on chronic hypercarbic respiratory failure and a chest x-ray shows evidence of pulmonary vascular congestion and along with her increased BNP is consistent with decompensated heart failure. The patient also had some mild demand ischemia in the setting of her decompensated heart failure. The patient reports she has been compliant with her [facility]AP [facility], although given her history of dementia it is unclear if this is true. Noncompliance with her C-PAP can contribute to her poor control of her heart failure as well as her recently diagnosed hypothyroidism. 1. Acute on chronic hypercarbic and hypoxemic respiratory failure in the setting of decompensated CHF. 2. Demand ischemia secondary to decompensated CHF. 3. Acute on chronic renal failure. 4. Chronic steroid use likely secondary to history of sarcoidosis. 5. Macrocytic anemia. 6. Hypothyroidism. 7. COPD. - The patient appears to be at her baseline mental status. Her last ABG also shows improvement. Would continue her with BiPap at night instead of her previous C-PAP. I suspect she needs increased support for her ANGELINA and possible OHS. Will continue with her current settings of 12 over 6 at 25% FIO2. Patient can followup as an outpatient with repeat sleep study to see if she needs any adjustments in her BiPAP settings. - Continue with nasal cannula oxygen during the day as needed. She is currently on 1 meter nasal cannula; can be weaned off to room air if her O2 sat is above 88%. - Continue with diuresis as per primary team and continue monitoring ins and outs. The patient was significantly net negative yesterday. - The patient's renal function is improving with diuresis consistent with suspected diagnosis of cardiorenal syndrome for her acute on chronic renal failure. - Can continue with her spironolactone and isosorbide as her blood pressures have improved with diuresis. - The patient was started on hydrocortisone for possible adrenal insufficiency due to her chronic steroid use. Will taper her hydrocortisone to 50 mg daily and then would change patient back to her home prednisone of 10 mg by mouth daily. - Continue Symbicort and DuoNebs for history of COPD. - Continue with Synthroid. Can switch her to by mouth (p.o.) as she is able to weaned off of her BiPap. DVT prophylaxis. CODE STATUS: FULL CODE. Total critical care time spent not including any procedures approximately 30 minutes. Please do not hesitate to call if any further questions or concerns. MTDD
[2018-08-13] VITALS (9 sets, daily range): BP systolic 141–183; BP diastolic 62–77; O2SAT 96–100
[2018-08-13] MEDS: LEVOTHYROXINE 125MCG TABLET (0.125MG) PO SCH (05:27)
[2018-08-13] MEDS: HEPARIN SOD (PORCINE) 5000 UNITS/ML VIAL SQ SCH ×3 (05:27→22:11)
[2018-08-13 05:37] LABS: HEMATOCRIT 23.6 % (36.0-47.0); HEMOGLOBIN 7.3 g/dl (12.0-15.5); MEAN CORPUSCULAR HEMOGLOBIN 30.3 pg (27.0-33.0); MEAN CORPUSCULAR HGB CONC 30.9 g/dl (32.0-36.5); MEAN CORPUSCULAR VOLUME 97.9 fl (80.0-96.0); PLATELET COUNT, AUTOMATED 254 10^3/uL (150-450); RED BLOOD COUNT 2.41 10^6/uL (4.00-5.40); WHITE BLOOD COUNT 5.7 10^3/uL (4.0-10.0)
[2018-08-13] MEDS: ACETAMINOPHEN TAB 650MG DOSE (2X325MG) PO PRN ×2 (05:42→17:11)
[2018-08-13 06:56] LABS: ALBUMIN 2.6 GM/DL (3.2-5.2); ALT/SGPT 16 U/L (12-78); BILIRUBIN,TOTAL 0.3 MG/DL (0.2-1.0); BLOOD UREA NITROGEN 17 MG/DL (7-18); CALCIUM LEVEL 7.9 MG/DL (8.8-10.2); CARBON DIOXIDE LEVEL 36 MEQ/L (21-32); CHLORIDE LEVEL 103 MEQ/L (98-107); CREATININE FOR GFR 0.94 MG/DL (0.55-1.30); FERRITIN 192 NG/ML (8-252); GLOMERULAR FILTRATION RATE > 60.0 (>45); GLUCOSE, FASTING 97 MG/DL (70-100); IRON (FE) 51 UG/DL (50-170); PERCENT SATURATION 35.7 % (13.2-45.0); POTASSIUM SERUM 3.7 MEQ/L (3.5-5.1); SODIUM LEVEL 144 MEQ/L (136-145); TOTAL IRON BINDING CAPACITY 143 UG/DL (250-450); TOTAL PROTEIN 5.9 GM/DL (6.4-8.2)
[2018-08-13] MEDS: HumaLOG INSULIN (NovoLOG) PER UNIT SC SCH ×4 (07:30→20:14)
[2018-08-13] MEDS: SYMBICORT 160/4.5MCG INHALER 6GM INH SCH ×2 (07:33→20:13)
[2018-08-13] MEDS: MIRALAX *UNIT DOSE* 17GM PACKET PO SCH (09:00)
[2018-08-13] MEDS: ROSUVASTATIN 10 MG TAB (CRESTOR) PO SCH (09:09)
[2018-08-13] MEDS: ASPIRIN 325 MG TAB PO SCH (09:09)
[2018-08-13] MEDS: DOCUSATE SODIUM 100 MG CAP PO SCH (09:10)
[2018-08-13] MEDS: ISOSORBIDE DIN. (ISORDIL) 5 MG TAB PO SCH ×3 (09:10→22:09)
[2018-08-13] MEDS: PANTOPRAZOLE 40MG TAB (PROTONIX) PO SCH (09:10)
[2018-08-13] MEDS: SENOKOT S TAB PO SCH (09:10)
[2018-08-13] MEDS: guaiFENesin ER 600 MG TAB PO SCH ×2 (09:10→22:10)
[2018-08-13] MEDS: TORSEMIDE 20 MG TAB PO SCH ×2 (09:10→17:11)
[2018-08-13] MEDS: predniSONE 10 MG TAB PO SCH (09:11)
[2018-08-13] MEDS: SPIRONOLACTONE 50 MG TAB PO SCH (09:11)
[2018-08-13] MEDS: METOPROLOL TARTRATE 100 MG TAB PO SCH ×2 (09:11→22:10)
[2018-08-13] MEDS: PHENYTOIN 100 MG/4 ML SUSP UDC PO SCH (09:12)
[2018-08-13] MEDS: SODIUM CHLORIDE 0.9% INJ 10 ML SYR IV SCH (09:12)
[2018-08-13] MEDS ORDERED: CRES10TA PO (11:37)
[2018-08-13] MEDS: SODIUM CHLORIDE 0.9% INJ 10 ML SYR IV PRN (11:47)
[2018-08-13] MEDS: BRIMONIDINE 0.15% OPHTH SOLN 5 ML OU SCH ×2 (17:15→22:10)
[2018-08-13] MEDS ORDERED: FUROSEMIDE 100 MG/10 ML VIAL (J1940) IV ONE (22:45)
[2018-08-14] MEDS: SODIUM CHLORIDE 0.9% INJ 10 ML SYR IV PRN ×2 (01:34→05:57)
--- NOTE | 2018-08-14 01:56 | DSES ---
DATE OF ADMISSION: 08/10/2018 DATE OF DISCHARGE: 08/13/2018 PRIMARY CARE PHYSICIAN: Timmy Hart MD ATTENDING TODAY: Antoni Mcdaniel MD HISTORY: This is a 67-year-old female patient resident over at [facility], who presented to [facility] Emergency Room with altered mental status. She had been recently discharged from [facility] on the for metabolic encephalopathy as well. Upon evaluation in the emergency room, she was found to have CO2 retention likely from obstructive sleep apnea (ANGELINA), acute kidney injury and fluid overload. She was diuresed during hospitalization and her respiratory status, as well as her mental status has improved and returned to baseline. She was admitted to the intensive care unit and the registered sales assistant followed her closely. Director Of Blood has recommended that the patient in the outpatient setting have a repeat sleep study to see if she needs adjustment in her BiPAP setting. There is concern that she has not only obstructive sleep apnea, but obesity hypoventilation syndrome. Her diuretics have been adjusted during her hospitalization as well. Her discharge diagnoses include: 1. Acute respiratory failure with right hypoxia and hypercapnia. 2. Elevated troponin felt secondary to demand ischemia. 3. Chronic steroid use secondary to history of sarcoidosis. 4. Hypothyroidism. 5. Morbid obesity 6. Chronic obstructive pulmonary disease. Her discharge medications include: - rosuvastatin 20 mg daily - acetaminophen 500 mg by mouth twice a day as needed for pain - aspirin 325 mg daily - Lumigan 50, one drop each eye daily - bisacodyl 10 mg per rectum daily as needed for constipation - brimonidine tartrate one drop each eye twice daily - Symbicort 160/4.5 2 puffs inhaled twice a day. - cetirizine 10 mg daily - Colace 100 mg daily - vitamin D 50,000 units by mouth weekly - guaifenesin 600 mg by mouth twice a day - Levemir 30 units subcutaneous at bedtime (q.h.s.) - isosorbide dinitrate 5 mg by mouth three times a day - Levoxyl 125 mcg by mouth daily - lidocaine topically twice a day - a muscle rub topically three times a day as needed for pain - metoprolol 100 mg by mouth twice a day - Milk of Magnesium 10 mL by mouth daily as needed for constipation - multivitamin one tablet daily - Protonix 40 mg daily - phenytoin 600 mg daily - MiraLAX 17 gm by mouth daily - prednisone 10 mg daily - Systane eye drops one drop each eye twice daily - Senokot one tablet by mouth daily - enema daily as needed for constipation - spironolactone 50 mg daily - torsemide 40 mg by mouth daily Her Abilify, gabapentin, hydralazine, metformin, metolazone have been discontinued during her hospitalization. DISCHARGE PLAN: Will include a discharge back to [facility] where she will follow a consistent carbohydrate diet. Her activity should be as tolerated. She is Gloria lift.
[2018-08-14] MEDS: ACETAMINOPHEN TAB 650MG DOSE (2X325MG) PO PRN (04:00)
[2018-08-14] MEDS: HEPARIN SOD (PORCINE) 5000 UNITS/ML VIAL SQ SCH ×3 (05:57→22:00)
[2018-08-14] MEDS: LEVOTHYROXINE 125MCG TABLET (0.125MG) PO SCH (05:57)
[2018-08-14 06:00] VITALS: BP 162/71
[2018-08-14 06:23] LABS: BASO # 0.1 10^3/uL (0.0-0.2); BASO % 0.9 % (0.0-1.0); EOS # 0.4 10^3/uL (0.0-0.50); EOS % 6.3 % (0.0-3.0); HEMATOCRIT 26.1 % (36.0-47.0); HEMOGLOBIN 8.3 g/dl (12.0-15.5); LYMPH # 1.2 10^3/uL (1.5-4.5); LYMPH % 18.8 % (24.0-44.0); MEAN CORPUSCULAR HEMOGLOBIN 30.2 pg (27.0-33.0); MEAN CORPUSCULAR HGB CONC 31.8 g/dl (32.0-36.5); MEAN CORPUSCULAR VOLUME 94.9 fl (80.0-96.0); MONO % 15.4 % (0.0-5.0); NEUTROPHILS # 3.7 10^3/uL (1.8-7.7); NEUTROPHILS % 56.2 % (36.0-66.0); PLATELET COUNT, AUTOMATED 252 10^3/uL (150-450); RED BLOOD COUNT 2.75 10^6/uL (4.00-5.40); WHITE BLOOD COUNT 6.6 10^3/uL (4.0-10.0)
[2018-08-14] MEDS: SYMBICORT 160/4.5MCG INHALER 6GM INH SCH ×2 (07:51→21:33)
[2018-08-14 08:19] LABS: BLOOD UREA NITROGEN 16 MG/DL (7-18); CALCIUM LEVEL 7.9 MG/DL (8.8-10.2); CARBON DIOXIDE LEVEL 36 MEQ/L (21-32); CHLORIDE LEVEL 102 MEQ/L (98-107); CREATININE FOR GFR 0.97 MG/DL (0.55-1.30); GLOMERULAR FILTRATION RATE > 60.0 (>45); GLUCOSE, FASTING 106 MG/DL (70-100); PHOSPHORUS LEVEL 2.4 MG/DL (2.5-4.9); POTASSIUM SERUM 3.5 MEQ/L (3.5-5.1); SODIUM LEVEL 143 MEQ/L (136-145)
[2018-08-14] MEDS: SENOKOT S TAB PO SCH (09:18)
[2018-08-14] MEDS: PANTOPRAZOLE 40MG TAB (PROTONIX) PO SCH (09:18)
[2018-08-14] MEDS: predniSONE 10 MG TAB PO SCH (09:18)
[2018-08-14] MEDS: ROSUVASTATIN 10 MG TAB (CRESTOR) PO SCH (09:18)
[2018-08-14] MEDS: SPIRONOLACTONE 50 MG TAB PO SCH (09:18)
[2018-08-14] MEDS: ASPIRIN 325 MG TAB PO SCH (09:18)
[2018-08-14] MEDS: guaiFENesin ER 600 MG TAB PO SCH ×2 (09:18→22:00)
[2018-08-14] MEDS: DOCUSATE SODIUM 100 MG CAP PO SCH (09:18)
[2018-08-14] MEDS: TORSEMIDE 20 MG TAB PO SCH ×2 (09:18→17:17)
[2018-08-14] MEDS: ISOSORBIDE DIN. (ISORDIL) 5 MG TAB PO SCH ×3 (09:19→22:02)
[2018-08-14] MEDS: METOPROLOL TARTRATE 100 MG TAB PO SCH ×2 (09:19→22:02)
[2018-08-14] MEDS: NORCO, ANEXSIA 5/325MG TABLET (HYDROcodone/ACETAMINOPHEN) PO PRN ×3 (09:20→22:09)
[2018-08-14] MEDS: PHENYTOIN 100 MG/4 ML SUSP UDC PO SCH (09:20)
[2018-08-14] MEDS: MIRALAX *UNIT DOSE* 17GM PACKET PO SCH (09:20)
[2018-08-14] MEDS: SODIUM CHLORIDE 0.9% INJ 10 ML SYR IV SCH (09:21)
[2018-08-14] MEDS: HumaLOG INSULIN (NovoLOG) PER UNIT SC SCH ×4 (09:21→20:19)
[2018-08-14 14:00] VITALS: BP 157/71
[2018-08-14] MEDS: BRIMONIDINE 0.15% OPHTH SOLN 5 ML OU SCH ×2 (15:05→21:59)
[2018-08-14 22:00] VITALS: BP 156/69
[2018-08-15] MEDS: NORCO, ANEXSIA 5/325MG TABLET (HYDROcodone/ACETAMINOPHEN) PO PRN ×3 (03:22→20:54)
[2018-08-15] MEDS: HEPARIN SOD (PORCINE) 5000 UNITS/ML VIAL SQ SCH ×3 (05:44→20:47)
[2018-08-15] MEDS: LEVOTHYROXINE 125MCG TABLET (0.125MG) PO SCH (05:44)
[2018-08-15 06:00] VITALS: BP 165/74
[2018-08-15] MEDS: SYMBICORT 160/4.5MCG INHALER 6GM INH SCH ×2 (08:25→20:00)
[2018-08-15] MEDS: PHENYTOIN 100 MG/4 ML SUSP UDC PO SCH (08:40)
[2018-08-15] MEDS: MIRALAX *UNIT DOSE* 17GM PACKET PO SCH (08:40)
[2018-08-15] MEDS: SENOKOT S TAB PO SCH (08:41)
[2018-08-15] MEDS: ASPIRIN 325 MG TAB PO SCH (08:41)
[2018-08-15] MEDS: DOCUSATE SODIUM 100 MG CAP PO SCH (08:41)
[2018-08-15] MEDS: guaiFENesin ER 600 MG TAB PO SCH ×2 (08:41→20:46)
[2018-08-15] MEDS: SPIRONOLACTONE 50 MG TAB PO SCH (08:41)
[2018-08-15] MEDS: TORSEMIDE 20 MG TAB PO SCH ×2 (08:41→17:20)
[2018-08-15] MEDS: predniSONE 10 MG TAB PO SCH (08:41)
[2018-08-15] MEDS: PANTOPRAZOLE 40MG TAB (PROTONIX) PO SCH (08:41)
[2018-08-15] MEDS: ROSUVASTATIN 10 MG TAB (CRESTOR) PO SCH (08:41)
[2018-08-15] MEDS: ISOSORBIDE DIN. (ISORDIL) 5 MG TAB PO SCH ×3 (08:42→20:46)
[2018-08-15] MEDS: METOPROLOL TARTRATE 100 MG TAB PO SCH ×2 (08:42→20:46)
[2018-08-15] MEDS: HumaLOG INSULIN (NovoLOG) PER UNIT SC SCH ×4 (08:43→20:46)
[2018-08-15] MEDS: SODIUM CHLORIDE 0.9% INJ 10 ML SYR IV SCH (08:43)
[2018-08-15 14:00] VITALS: BP 167/75
[2018-08-15] MEDS: BRIMONIDINE 0.15% OPHTH SOLN 5 ML OU SCH ×2 (14:24→20:44)
[2018-08-15 22:00] VITALS: BP 130/68
[2018-08-16] MEDS: NORCO, ANEXSIA 5/325MG TABLET (HYDROcodone/ACETAMINOPHEN) PO PRN (03:37)
[2018-08-16] MEDS: HEPARIN SOD (PORCINE) 5000 UNITS/ML VIAL SQ SCH (05:53)
[2018-08-16] MEDS: LEVOTHYROXINE 125MCG TABLET (0.125MG) PO SCH (05:54)
[2018-08-16 06:00] VITALS: BP 157/69
[2018-08-16 08:23] VITALS: BP 155/67
[2018-08-16] MEDS: ASPIRIN 325 MG TAB PO SCH (08:23)
[2018-08-16] MEDS: MIRALAX *UNIT DOSE* 17GM PACKET PO SCH (08:23)
[2018-08-16] MEDS: ISOSORBIDE DIN. (ISORDIL) 5 MG TAB PO SCH (08:23)
[2018-08-16] MEDS: HumaLOG INSULIN (NovoLOG) PER UNIT SC SCH ×2 (08:23→11:56)
[2018-08-16] MEDS: ROSUVASTATIN 10 MG TAB (CRESTOR) PO SCH (08:23)
[2018-08-16] MEDS: PHENYTOIN 100 MG/4 ML SUSP UDC PO SCH (08:24)
[2018-08-16] MEDS: DOCUSATE SODIUM 100 MG CAP PO SCH (08:24)
[2018-08-16] MEDS: METOPROLOL TARTRATE 100 MG TAB PO SCH (08:24)
[2018-08-16] MEDS: guaiFENesin ER 600 MG TAB PO SCH (08:24)
[2018-08-16] MEDS: SPIRONOLACTONE 50 MG TAB PO SCH (08:24)
[2018-08-16] MEDS: TORSEMIDE 20 MG TAB PO SCH (08:24)
[2018-08-16] MEDS: PANTOPRAZOLE 40MG TAB (PROTONIX) PO SCH (08:25)
[2018-08-16] MEDS: predniSONE 10 MG TAB PO SCH (08:25)
[2018-08-16] MEDS: SENOKOT S TAB PO SCH (08:25)
[2018-08-16] MEDS: SODIUM CHLORIDE 0.9% INJ 10 ML SYR IV SCH (08:25)
[2018-08-16] MEDS: SYMBICORT 160/4.5MCG INHALER 6GM INH SCH (09:14)
[2018-08-16 10:50] LABS: HEMATOCRIT 26.3 % (36.0-47.0); HEMOGLOBIN 8.1 g/dl (12.0-15.5); MEAN CORPUSCULAR HEMOGLOBIN 29.7 pg (27.0-33.0); MEAN CORPUSCULAR HGB CONC 30.8 g/dl (32.0-36.5); MEAN CORPUSCULAR VOLUME 96.3 fl (80.0-96.0); PLATELET COUNT, AUTOMATED 250 10^3/uL (150-450); RED BLOOD COUNT 2.73 10^6/uL (4.00-5.40); WHITE BLOOD COUNT 7.1 10^3/uL (4.0-10.0)
[2018-08-16] MEDS: SODIUM CHLORIDE 0.9% INJ 10 ML SYR IV PRN (11:34)
== END 2018-08-16 13:04 | DRG 291 ==
LOC: M ED 15:59 → M ED INP 20:22 → M MSPAV 22:15 → M ICU 08-10 02:50 → OBSVTOIN 08-10 15:07 → M MSPAV 08-13 14:41
PROVIDERS: ADMIT Internal Medicine; ATTEND Family Medicine
DX: I13.0 Hypertensive heart and chronic kidney disease with heart failure and stage 1 through stage 4 chronic kidney disease, or unspecified chronic kidney disease (principal); G93.41 Metabolic encephalopathy; J96.02 Acute respiratory failure with hypercapnia; J96.22 Acute and chronic respiratory failure with hypercapnia; I50.33 Acute on chronic diastolic (congestive) heart failure; N17.9 Acute kidney failure, unspecified; E87.2 Acidosis; Z68.42 Body mass index [BMI] 45.0-49.9, adult; E27.40 Unspecified adrenocortical insufficiency; I24.8 Other forms of acute ischemic heart disease; E66.01 Morbid (severe) obesity due to excess calories; E03.9 Hypothyroidism, unspecified; J44.9 Chronic obstructive pulmonary disease, unspecified; Z79.899 Other long term (current) drug therapy; D86.9 Sarcoidosis, unspecified; Z79.52 Long term (current) use of systemic steroids; E11.40 Type 2 diabetes mellitus with diabetic neuropathy, unspecified; E11.21 Type 2 diabetes mellitus with diabetic nephropathy; G47.33 Obstructive sleep apnea (adult) (pediatric); Z91.19 Patient's noncompliance with other medical treatment and regimen; G40.909 Epilepsy, unspecified, not intractable, without status epilepticus; K21.9 Gastro-esophageal reflux disease without esophagitis; I25.10 Atherosclerotic heart disease of native coronary artery without angina pectoris; N18.3 Chronic kidney disease, stage 3 (moderate); D63.8 Anemia in other chronic diseases classified elsewhere; Z85.3 Personal history of malignant neoplasm of breast; Z90.12 Acquired absence of left breast and nipple; Z88.2 Allergy status to sulfonamides; Z88.8 Allergy status to other drugs, medicaments and biological substances; Z79.4 Long term (current) use of insulin; D53.9 Nutritional anemia, unspecified

== ENCOUNTER → 2018-08-19 | Outpatient (REF) | payer MEDICARE, MEDICAID ==
[~2018-08-19] MED LIST changes: +CRES10TA PO; +LEVO125T41 PO
[2018-08-19 08:05] LABS: HEMATOCRIT 26.3 % (36.0-47.0); HEMOGLOBIN 8.3 g/dl (12.0-15.5); MEAN CORPUSCULAR HEMOGLOBIN 30.1 pg (27.0-33.0); MEAN CORPUSCULAR HGB CONC 31.6 g/dl (32.0-36.5); MEAN CORPUSCULAR VOLUME 95.3 fl (80.0-96.0); PLATELET COUNT, AUTOMATED 233 10^3/uL (150-450); RED BLOOD COUNT 2.76 10^6/uL (4.00-5.40); WHITE BLOOD COUNT 7.8 10^3/uL (4.0-10.0)
[2018-08-19 08:48] LABS: HEMOGLOBIN A1c 5.5 %
[2018-08-19 08:56] LABS: ALBUMIN 3.1 GM/DL (3.2-5.2); ALT/SGPT 16 U/L (12-78); BILIRUBIN,TOTAL 0.3 MG/DL (0.2-1.0); BLOOD UREA NITROGEN 21 MG/DL (7-18); CALCIUM LEVEL 8.8 MG/DL (8.8-10.2); CARBON DIOXIDE LEVEL 37 MEQ/L (21-32); CHLORIDE LEVEL 99 MEQ/L (98-107); CREATININE FOR GFR 0.84 MG/DL (0.55-1.30); GLOMERULAR FILTRATION RATE > 60.0 (>45); GLUCOSE, FASTING 88 MG/DL (70-100); IRON (FE) 73 UG/DL (50-170); PERCENT SATURATION 40.3 % (13.2-45.0); POTASSIUM SERUM 3.7 MEQ/L (3.5-5.1); SODIUM LEVEL 140 MEQ/L (136-145); TOTAL IRON BINDING CAPACITY 181 UG/DL (250-450); TOTAL PROTEIN 6.4 GM/DL (6.4-8.2)
[2018-08-20 08:07] LABS: FREE T4 0.59 NG/DL (0.76-1.46)
== END ==
LOC: SKLAB2 07:00
PROVIDERS: ATTEND Internal Medicine
DX: D64.9 Anemia, unspecified (principal); I50.9 Heart failure, unspecified; E11.9 Type 2 diabetes mellitus without complications; I11.0 Hypertensive heart disease with heart failure

== ENCOUNTER → 2018-08-20 | Outpatient (REF) | payer MEDICARE, MEDICAID | LOC: SKLAB2 07:38 | PROVIDERS: ATTEND Internal Medicine | DX: R94.6 Abnormal results of thyroid function studies (principal) ==

== ENCOUNTER → 2018-08-25 | Outpatient (CLI) | payer MEDICARE, MEDICAID ==
--- NOTE | 2018-08-25 16:43 | REP ---
Clinical: Elevated TSH levels. Technique: Real time peoples scale and color evaluation using linear and curved array transducers. Findings: The thyroid gland is heterogeneous. The right lobe measures 5.1 x 3.0 x 2.8 cm and includes 3.9 x 4.1 x 3.3 mm hypoechoic mid pole nodule/cyst with small amount of calcification as well as a 1.6 x 0.8 x 1.1 cm hypoechoic nodule along the posterior contour which is nonspecific but may represent parathyroid. Left lobe measures 4.8 x 2.1 x 2.4 cm and includes 8 x 7 x 8 mm mid pole cyst. Isthmus measures 7 mm in width. Impression: Heterogeneous thyroid gland with few nonspecific nodules as described above. Electronically Signed by Guy Whitaker MD 08/25/2018 04:34 P
== END ==
LOC: M RAD 08:38
PROVIDERS: ATTEND Internal Medicine
DX: E04.1 Nontoxic single thyroid nodule (principal)

== ENCOUNTER → 2018-09-06 | Outpatient (REF) | payer MEDICARE, MEDICAID ==
[2018-09-06 09:58] LABS: HEMATOCRIT 29.4 % (36.0-47.0); HEMOGLOBIN 9.3 g/dl (12.0-15.5); MEAN CORPUSCULAR HEMOGLOBIN 31.4 pg (27.0-33.0); MEAN CORPUSCULAR HGB CONC 31.6 g/dl (32.0-36.5); MEAN CORPUSCULAR VOLUME 99.3 fl (80.0-96.0); PLATELET COUNT, AUTOMATED 275 10^3/uL (150-450); RED BLOOD COUNT 2.96 10^6/uL (4.00-5.40); WHITE BLOOD COUNT 6.1 10^3/uL (4.0-10.0)
== END ==
LOC: SKLAB2 07:00
PROVIDERS: ATTEND Internal Medicine
DX: D64.9 Anemia, unspecified (principal)

== ENCOUNTER → 2018-09-13 | Outpatient (REF) | payer MEDICARE, MEDICAID ==
[2018-09-13 07:22] LABS: HEMATOCRIT 28.7 % (36.0-47.0); HEMOGLOBIN 9.7 g/dl (12.0-15.5); MEAN CORPUSCULAR HEMOGLOBIN 32.1 pg (27.0-33.0); MEAN CORPUSCULAR HGB CONC 33.8 g/dl (32.0-36.5); PLATELET COUNT, AUTOMATED 272 10^3/uL (150-450); RED BLOOD COUNT 3.02 10^6/uL (4.00-5.40); WHITE BLOOD COUNT 5.7 10^3/uL (4.0-10.0)
== END ==
LOC: SKLAB2 07:00
PROVIDERS: ATTEND Internal Medicine
DX: D64.9 Anemia, unspecified (principal)

== ENCOUNTER → 2018-09-17 | Outpatient (REF) | payer MEDICARE, MEDICAID ==
--- NOTE | 2018-09-17 04:35 | REPVR ---
EXAM: XR Chest, 1 View EXAM DATE/TIME: 09/17/2018 3:50 AM CLINICAL HISTORY: 68 years old, female; Chest pain TECHNIQUE: Imaging protocol: XR of the chest, 1 view. COMPARISON: No relevant prior studies available. FINDINGS: Tubes, catheters and devices: Right internal jugular Port-A-Cath to the proximal superior vena cava. Lungs: Low inflation of the lungs. No focal infiltrates. Pleural space: Unremarkable. No pleural effusion. No pneumothorax. Heart/Mediastinum: Borderline cardiomegaly considering AP and lordotic projection. Vasculature: Bilateral vascular crowding. Bones/joints: Unremarkable. Soft tissues: Moderately generous overlying soft tissues. IMPRESSION: 1. Right Port-A-Cath to the proximal superior vena cava. 2. Borderline cardiomegaly. 3. Otherwise essentially negative poor inspiratory chest. Electronically signed by: Mathieu Baker On 09/17/2018 04:34:42 AM
== END ==
LOC: M LAB REF 02:45 → M LAB 02:45
PROVIDERS: ATTEND Internal Medicine
DX: R07.9 Chest pain, unspecified (principal)

== ENCOUNTER → 2018-09-20 | Outpatient (REF) | payer MEDICARE, MEDICAID ==
[2018-09-17 03:36] LABS: HEMATOCRIT 31.6 % (36.0-47.0); HEMOGLOBIN 10.1 g/dl (12.0-15.5); MEAN CORPUSCULAR HEMOGLOBIN 31.4 pg (27.0-33.0); MEAN CORPUSCULAR VOLUME 98.1 fl (80.0-96.0); PLATELET COUNT, AUTOMATED 279 10^3/uL (150-450); RED BLOOD COUNT 3.22 10^6/uL (4.00-5.40); WHITE BLOOD COUNT 5.8 10^3/uL (4.0-10.0)
[2018-09-17 03:54] LABS: BLOOD UREA NITROGEN 33 MG/DL (7-18); CALCIUM LEVEL 8.4 MG/DL (8.8-10.2); CARBON DIOXIDE LEVEL 34 MEQ/L (21-32); CHLORIDE LEVEL 101 MEQ/L (98-107); CREATININE FOR GFR 0.97 MG/DL (0.55-1.30); GLOMERULAR FILTRATION RATE > 60.0 (>45); GLUCOSE, FASTING 179 MG/DL (70-100); POTASSIUM SERUM 3.5 MEQ/L (3.5-5.1); SODIUM LEVEL 140 MEQ/L (136-145)
[2018-09-20 08:13] LABS: HEMATOCRIT 29.9 % (36.0-47.0); HEMOGLOBIN 9.6 g/dl (12.0-15.5); MEAN CORPUSCULAR HEMOGLOBIN 31.3 pg (27.0-33.0); MEAN CORPUSCULAR HGB CONC 32.1 g/dl (32.0-36.5); MEAN CORPUSCULAR VOLUME 97.4 fl (80.0-96.0); PLATELET COUNT, AUTOMATED 110 10^3/uL (150-450); RED BLOOD COUNT 3.07 10^6/uL (4.00-5.40); WHITE BLOOD COUNT 6.3 10^3/uL (4.0-10.0)
== END ==
LOC: SKLAB2 07:00
PROVIDERS: ATTEND Internal Medicine
DX: D64.9 Anemia, unspecified (principal)

== ENCOUNTER → 2018-10-11 | Outpatient (REF) | payer MEDICARE, MEDICAID ==
[2018-10-11 07:31] LABS: HEMATOCRIT 33.2 % (36.0-47.0); HEMOGLOBIN 10.7 g/dl (12.0-15.5); MEAN CORPUSCULAR HEMOGLOBIN 31.3 pg (27.0-33.0); MEAN CORPUSCULAR HGB CONC 32.2 g/dl (32.0-36.5); MEAN CORPUSCULAR VOLUME 97.1 fl (80.0-96.0); PLATELET COUNT, AUTOMATED 231 10^3/uL (150-450); RED BLOOD COUNT 3.42 10^6/uL (4.00-5.40); WHITE BLOOD COUNT 7.9 10^3/uL (4.0-10.0)
== END ==
LOC: SKLAB2 07:00
PROVIDERS: ATTEND Internal Medicine
DX: D64.9 Anemia, unspecified (principal)

== ENCOUNTER → 2018-11-15 | Outpatient (REF) | payer MEDICARE, MEDICAID ==
[~2018-11-15] MED LIST changes: -OXYB10TA PO; +OXYB10TA2 PO; -ROSU20TA4 PO; +ROSU20TA5 PO
[2018-11-15 08:18] LABS: HEMATOCRIT 30.9 % (36.0-47.0); HEMOGLOBIN 10.2 g/dl (12.0-15.5); MEAN CORPUSCULAR HEMOGLOBIN 30.4 pg (27.0-33.0); MEAN CORPUSCULAR VOLUME 92.2 fl (80.0-96.0); PLATELET COUNT, AUTOMATED 264 10^3/uL (150-450); RED BLOOD COUNT 3.35 10^6/uL (4.00-5.40); WHITE BLOOD COUNT 6.1 10^3/uL (4.0-10.0)
[2018-11-15 08:43] LABS: ALBUMIN 3.1 GM/DL (3.2-5.2); ALT/SGPT 14 U/L (12-78); BILIRUBIN,TOTAL 0.1 MG/DL (0.2-1.0); BLOOD UREA NITROGEN 35 MG/DL (7-18); CALCIUM LEVEL 8.7 MG/DL (8.8-10.2); CARBON DIOXIDE LEVEL 33 MEQ/L (21-32); CHLORIDE LEVEL 104 MEQ/L (98-107); GLOMERULAR FILTRATION RATE > 60.0 (>45); GLUCOSE, FASTING 145 MG/DL (70-100); IRON (FE) 73 UG/DL (50-170); PERCENT SATURATION 39.7 % (13.2-45.0); POTASSIUM SERUM 3.7 MEQ/L (3.5-5.1); SODIUM LEVEL 143 MEQ/L (136-145); TOTAL IRON BINDING CAPACITY 184 UG/DL (250-450); TOTAL PROTEIN 6.4 GM/DL (6.4-8.2)
== END ==
LOC: SKLAB2 07:00
PROVIDERS: ATTEND Internal Medicine
DX: D64.9 Anemia, unspecified (principal); E11.9 Type 2 diabetes mellitus without complications; I11.0 Hypertensive heart disease with heart failure; I50.9 Heart failure, unspecified

== ENCOUNTER → 2018-12-13 | Outpatient (REF) | payer MEDICARE, MEDICAID ==
[~2018-12-13] MED LIST changes: -OXYB10TA2 PO; +OXYB10TA23 PO
[2018-12-13 08:04] LABS: HEMOGLOBIN 10.5 g/dl (12.0-15.5); MEAN CORPUSCULAR HEMOGLOBIN 31.6 pg (27.0-33.0); MEAN CORPUSCULAR HGB CONC 33.9 g/dl (32.0-36.5); MEAN CORPUSCULAR VOLUME 93.4 fl (80.0-96.0); PLATELET COUNT, AUTOMATED 287 10^3/uL (150-450); RED BLOOD COUNT 3.32 10^6/uL (4.00-5.40); WHITE BLOOD COUNT 6.5 10^3/uL (4.0-10.0)
[2018-12-13 08:34] LABS: CHOLESTEROL RISK RATIO 2.531 (<5)
[2018-12-13 12:08] LABS: THYROID STIMULATING HORMONE 1.29 uIU/ML (0.358-3.740)
== END ==
LOC: SKLAB2 07:00
PROVIDERS: ATTEND Internal Medicine
DX: D64.9 Anemia, unspecified (principal); E78.5 Hyperlipidemia, unspecified

== ENCOUNTER → 2019-01-07 | Outpatient (CLI) | payer MEDICARE, MEDICAID ==
[~2019-01-07] MED LIST changes: +OXYB10TA2 PO; -OXYB10TA23 PO
--- NOTE | 2019-01-07 19:13 | REP ---
Left chest wall ultrasound: The patient had left breast carcinoma 5 years ago had a total left mastectomy. She complains of pain at the mastectomy incision site. Multiple ultrasonographic images at the incision site reveal no focal nodule, mass, cyst or fluid collection. Impression: No focal nodule, mass, cyst or fluid collection at the left mastectomy incision. Electronically Signed by Bello White MD 01/07/2019 07:04 P
== END ==
LOC: M RAD 17:20
DX: N64.4 Mastodynia (principal); Z90.12 Acquired absence of left breast and nipple; Z85.3 Personal history of malignant neoplasm of breast

== ENCOUNTER → 2019-01-17 | Outpatient (REF) | payer MEDICARE, MEDICAID ==
[2019-01-17 07:50] LABS: HEMATOCRIT 27.7 % (36.0-47.0); MEAN CORPUSCULAR HEMOGLOBIN 30.4 pg (27.0-33.0); MEAN CORPUSCULAR HGB CONC 32.5 g/dl (32.0-36.5); MEAN CORPUSCULAR VOLUME 93.6 fl (80.0-96.0); PLATELET COUNT, AUTOMATED 299 10^3/uL (150-450); RED BLOOD COUNT 2.96 10^6/uL (4.00-5.40); WHITE BLOOD COUNT 7.9 10^3/uL (4.0-10.0)
== END ==
LOC: SKLAB2 07:00
PROVIDERS: ATTEND Internal Medicine
DX: D64.9 Anemia, unspecified (principal)

== ENCOUNTER → 2019-01-24 | Outpatient (REF) | payer MEDICARE, MEDICAID ==
[2019-01-24 08:07] LABS: HEMATOCRIT 28.7 % (36.0-47.0); HEMOGLOBIN 9.4 g/dl (12.0-15.5); MEAN CORPUSCULAR HEMOGLOBIN 32.1 pg (27.0-33.0); MEAN CORPUSCULAR HGB CONC 32.8 g/dl (32.0-36.5); PLATELET COUNT, AUTOMATED 292 10^3/uL (150-450); RED BLOOD COUNT 2.93 10^6/uL (4.00-5.40); WHITE BLOOD COUNT 7.4 10^3/uL (4.0-10.0)
== END ==
LOC: SKLAB2 07:00
PROVIDERS: ATTEND Internal Medicine
DX: D64.9 Anemia, unspecified (principal)

== ENCOUNTER → 2019-02-10 | Outpatient (CLI) | payer MEDICARE, MEDICAID ==
[~2019-02-10] MED LIST changes: +LIDOCAINE 1% MDV 20ML VIAL As Ordered ONE; +MIDAZOLAM INJ 2 MG/2 ML VIAL (J2250) As Ordered ONE; +diphenhydrAMINE INJ 50MG/ML VIAL (J1200) As Ordered ONE; +fentaNYL 100 MCG/2 ML INJECTION (J3010) As Ordered ONE
--- NOTE | 2019-02-10 16:12 | IRHP ---
[facility] IR Pre-Procedure H & P General Date of Service: Feb 10, 2019 Procedure: Same Day Surgery Interval History and Physical I have seen the patient and reviewed last H & P performed within 30 days. There is no significant interval change. History of Present Illness Chief Complaint The patient is a 68-year-old female admitted with a reason for visit of Unable To Flush. PRE-PROCEDURE DIAGNOSIS: port not working. not needed HEART: normal rate. LUNGS: normal breathing at rest. ASA Classification ASA Classification: III-Severe systemic dis. Mallampati Score: II NPO: Yes Problems with prior sedation: No Obstructive Sleep Apnea: Yes Plan moderate sedation Allergies Coded Allergies: Sulfa (Sulfonamide Antibiotics) (Verified Allergy, Unknown, 06/30/18) atorvastatin (Verified Allergy, Unknown, 06/30/18) baclofen (Verified Allergy, Unknown, 06/30/18) clindamycin (Verified Allergy, Unknown, 06/30/18) duloxetine (Verified Allergy, Unknown, 06/30/18) levetiracetam (Verified Allergy, Unknown, 06/30/18) lisinopril (Verified Allergy, Unknown, 06/30/18) topiramate (Verified Allergy, Unknown, 06/30/18) tramadol (Verified Allergy, Unknown, 06/30/18) Home Medications Scheduled Aspirin (Aspirin), 325 MG PO DAILY, (Reported) Bimatoprost (Lumigan), 1 DROP OU DAILY, (Reported) Brimonidine Tartrate (Brimonidine Tartrate), 1 DROP OU BID, (Reported) Budesonide/Formoterol (Symbicort 160-4.5 Mcg Inhaler), 2 PUFF INH BID, (Rep orted) Cetirizine HCl (Cetirizine HCl), 10 MG PO DAILY, (Reported) Docusate Sodium (Colace), 100 MG PO DAILY, (Reported) Ergocalciferol (Vitamin D2) (Drisdol), 50,000 UNIT PO QWEEK, (Reported) Guaifenesin (Mucinex), 600 MG PO BID, (Reported) Insulin Detemir (Levemir), 30 UNITS SC QHS, (Reported) Insulin Human Lispro (Humalog), 1 DOSE SC BID, (Reported) Isosorbide Dinitrate (Isosorbide Dinitrate), 5 MG PO TID, (Reported) Levothyroxine Sodium (Levoxyl), 125 MCG PO DAILY, (Reported) Lidocaine HCl (Aspercreme), 1 APLCT TOP BID, (Reported) Metoprolol Tartrate (Metoprolol Tartrate), 100 MG PO BID, (Reported) Multivitamins (Thera M Plus Tablet), 1 TAB PO DAILY, (Reported) Pantoprazole Sodium (Protonix), 40 MG PO DAILY, (Reported) Phenytoin Sodium Extended (Dilantin), 600 MG PO DAILY, (Reported) Polyethylene Glycol 3350 (Miralax), 17 GM PO DAILY, (Reported) Prednisone (Prednisone), 10 MG PO DAILY, (Reported) Propylene Glycol (Systane Complete), 1 DROP OU BID, (Reported) Rosuvastatin Calcium (Rosuvastatin Calcium), 20 MG PO QHS, (Reported) Rosuvastatin Calcium (Crestor), 20 MG PO DAILY Sennosides (Senokot), 1 TAB PO DAILY, (Reported) Spironolactone (Spironolactone), 50 MG PO DAILY, (Reported) Torsemide (Torsemide), 40 MG PO BID, (Reported) Scheduled PRN Acetaminophen (Acetaminophen), 500 MG PO BID PRN for PAIN, (Reported) Bisacodyl (Bisacodyl), 10 MG AL DAILY PRN for CONSTIPATION, (Reported) Glucagon,Human Recombinant (Glucagon Emergency Kit), 1 MG IM ASDIRECTED PRN for LOW BLOOD SUGAR, (Reported) Methyl Salicylate/Menthol (Muscle Rub Cream), 1 APLCT TOP TID PRN for PAIN, (Reported) Milk Of Magnesia (Milk of Magnesia), 10 ML PO DAILY PRN for CONSTIPATION, (Reported) Sodium Phosphate,Cheatham-Dibasic (Enema Ready To Use), 1 LAURIE AL DAILY PRN for CONSTIPATION, (Reported) VS, I&O, 24H, Fishbone Vital Signs/I&O Vital Signs Date Time Temp Pulse Resp B/P (MAP) Pulse Ox O2 Delivery O2 Flow Rate FiO2 02/10/19 15:40 60 16 98 Nasal Cannula 2 02/10/19 14:00 97.4 INDER GUILLERMO MD Feb 10, 2019 16:12
[2019-02-10 17:55] VITALS: BP 182/78
--- NOTE | 2019-02-11 07:42 | REP ---
IR port removal. IR moderate sedation. Clinical information: Right chest wall port placed 2 years ago is not working. The patient gets peripheral IV access without any problems. Port not being used. Provider requests removal. Physician: Dr. Hardin. Procedure: The patient was advised of the benefits, risks and alternatives of the procedure and informed consent was obtained. The time-out was performed with verification of the patient's name, MRN, site of procedure and type of procedure to be performed. The patient was positioned in the supine position on the angiographic table. The site was prepped and draped in the usual sterile fashion. Moderate sedation was performed by the physician including the presence of an independent trained observer who assisted and monitored the patient's level of consciousness and physiologic status. Following the administration of fentanyl and Versed , the physician spent 45 minutes of continuous face to face time with the patient. A crystal finisher radiograph reveals a right-sided port which is looped in the neck and the tip is located proximally. The soft tissues overlying the port pocket were anesthetized with lidocaine. An incision was made over the port using an 15 blade scalpel. The catheter was then freed with blunt dissection and extracted. Pressure was applied to obtain hemostasis. The port was then freed with blunt dissection and subsequently removed. There are no signs of infection. After hemostasis was achieved, the incision was closed with interrupted deep 2-0 Vicryl sutures and subcuticular Monocryl sutures. The site was cleansed and covered with a sterile dressing. A follow-up radiograph demonstrates complete removal of the port. The patient tolerated the procedure well and was returned to PRU in stable condition. EBL: < 5 ml. Complications: None. Conclusion: 1. Successful explant of a right sided port. 2. No signs of infection. Thank you this referral. Electronically Signed by Jaclyn Hardin MD 02/11/2019 07:40 A
== END ==
LOC: M IRPRO 13:53
PROVIDERS: ATTEND Radiology Diagnostic Radiology
DX: T82.898A Other specified complication of vascular prosthetic devices, implants and grafts, initial encounter (principal); X58.XXXA Exposure to other specified factors, initial encounter; Y93.9 Activity, unspecified; Y92.9 Unspecified place or not applicable; Y99.9 Unspecified external cause status; Z88.1 Allergy status to other antibiotic agents; Z88.2 Allergy status to sulfonamides; Z88.8 Allergy status to other drugs, medicaments and biological substances; Z79.899 Other long term (current) drug therapy; Z79.82 Long term (current) use of aspirin
CPT/HCPCS: 36590; 99152; 99153; J1200; J2250; J3010

== ENCOUNTER → 2019-02-14 | Outpatient (REF) | payer MEDICARE, MEDICAID ==
[~2019-02-14] MED LIST changes: -LIDOCAINE 1% MDV 20ML VIAL As Ordered ONE; -MIDAZOLAM INJ 2 MG/2 ML VIAL (J2250) As Ordered ONE; -diphenhydrAMINE INJ 50MG/ML VIAL (J1200) As Ordered ONE; -fentaNYL 100 MCG/2 ML INJECTION (J3010) As Ordered ONE
[2019-02-14 12:03] LABS: HEMATOCRIT 28.2 % (36.0-47.0); HEMOGLOBIN 8.6 g/dl (12.0-15.5); MEAN CORPUSCULAR HEMOGLOBIN 31.3 pg (27.0-33.0); MEAN CORPUSCULAR HGB CONC 30.5 g/dl (32.0-36.5); MEAN CORPUSCULAR VOLUME 102.5 fl (80.0-96.0); PLATELET COUNT, AUTOMATED 270 10^3/uL (150-450); RED BLOOD COUNT 2.75 10^6/uL (4.00-5.40); WHITE BLOOD COUNT 6.3 10^3/uL (4.0-10.0)
[2019-02-14 12:39] LABS: ALT/SGPT 22 U/L (12-78); BILIRUBIN,TOTAL 0.1 MG/DL (0.2-1.0); BLOOD UREA NITROGEN 31 MG/DL (7-18); CALCIUM LEVEL 8.5 MG/DL (8.8-10.2); CARBON DIOXIDE LEVEL 36 MEQ/L (21-32); CHLORIDE LEVEL 103 MEQ/L (98-107); CREATININE FOR GFR 1.16 MG/DL (0.55-1.30); GLOMERULAR FILTRATION RATE > 60.0 (>45); GLUCOSE, FASTING 197 MG/DL (70-100); IRON (FE) 57 UG/DL (50-170); PERCENT SATURATION 26.5 % (13.2-45.0); POTASSIUM SERUM 4.5 MEQ/L (3.5-5.1); SODIUM LEVEL 141 MEQ/L (136-145); TOTAL IRON BINDING CAPACITY 215 UG/DL (250-450); TOTAL PROTEIN 6.6 GM/DL (6.4-8.2)
== END ==
LOC: SKLAB2 11:30
PROVIDERS: ATTEND Internal Medicine
DX: D64.9 Anemia, unspecified (principal); I50.9 Heart failure, unspecified; E11.9 Type 2 diabetes mellitus without complications; I11.0 Hypertensive heart disease with heart failure

== ENCOUNTER → 2019-02-22 | Outpatient (REF) | payer MEDICARE, MEDICAID | LOC: SKLAB2 14:58 | PROVIDERS: ATTEND Internal Medicine | DX: I50.9 Heart failure, unspecified (principal) ==

== ENCOUNTER → 2019-03-08 | Outpatient (REF) | payer MEDICARE, MEDICAID ==
[2019-03-08 07:45] LABS: BLOOD UREA NITROGEN 22 MG/DL (7-18); CARBON DIOXIDE LEVEL 38 MEQ/L (21-32); CHLORIDE LEVEL 104 MEQ/L (98-107); CREATININE FOR GFR 1.14 MG/DL (0.55-1.30); GLOMERULAR FILTRATION RATE > 60.0 (>45); GLUCOSE, FASTING 134 MG/DL (70-100); NT-PRO BNP 6076 PG/ML (<125); POTASSIUM SERUM 3.5 MEQ/L (3.5-5.1); SODIUM LEVEL 144 MEQ/L (136-145)
== END ==
LOC: SKLAB2 07:00
PROVIDERS: ATTEND Internal Medicine
DX: I50.20 Unspecified systolic (congestive) heart failure (principal)

== ENCOUNTER → 2019-03-14 | Outpatient (REF) | payer MEDICARE, MEDICAID ==
[2019-03-14 08:52] LABS: HEMOGLOBIN 9.3 g/dl (12.0-15.5); MEAN CORPUSCULAR HEMOGLOBIN 31.2 pg (27.0-33.0); MEAN CORPUSCULAR VOLUME 100.7 fl (80.0-96.0); PLATELET COUNT, AUTOMATED 270 10^3/uL (150-450); RED BLOOD COUNT 2.98 10^6/uL (4.00-5.40); WHITE BLOOD COUNT 5.2 10^3/uL (4.0-10.0)
== END ==
LOC: SKLAB2 07:00
PROVIDERS: ATTEND Internal Medicine
DX: D64.9 Anemia, unspecified (principal)

== ENCOUNTER → 2019-04-15 | Outpatient (REF) | payer MEDICARE, MEDICAID ==
[~2019-04-15] MED LIST changes: -OXYB10TA2 PO; +OXYB10TA23 PO
[2019-04-15 11:46] LABS: ABG BASE EXCESS 5.2 (-2.0-2.0); ABG HCO3 31.4 MEQ/L (22.0-26.0); ABG O2 SATURATION 89.4 % (95.0-99.0); ABG PARTIAL PRESSURE CO2 52.9 mmHg (35.0-45.0); ABG PARTIAL PRESSURE O2 57.7 mmHg (75.0-100.0); ABG pH (ARTERIAL) 7.391 UNITS (7.350-7.450)
== END ==
LOC: SKLAB2 04-14 13:18
PROVIDERS: ATTEND Internal Medicine
DX: R53.83 Other fatigue (principal)

== ENCOUNTER → 2019-04-18 | Outpatient (REF) | payer MEDICARE, MEDICAID ==
[2019-04-18 10:45] LABS: HEMATOCRIT 37.4 % (36.0-47.0); MEAN CORPUSCULAR HGB CONC 32.1 g/dl (32.0-36.5); MEAN CORPUSCULAR VOLUME 93.5 fl (80.0-96.0); PLATELET COUNT, AUTOMATED 287 10^3/uL (150-450); WHITE BLOOD COUNT 9.9 10^3/uL (4.0-10.0)
[2019-04-18 13:00] LABS: BLOOD UREA NITROGEN 16 MG/DL (7-18); CALCIUM LEVEL 7.9 MG/DL (8.8-10.2); CARBON DIOXIDE LEVEL 34 MEQ/L (21-32); CHLORIDE LEVEL 97 MEQ/L (98-107); CREATININE FOR GFR 0.96 MG/DL (0.55-1.30); GLOMERULAR FILTRATION RATE > 60.0 (>45); GLUCOSE, FASTING 221 MG/DL (70-100); POTASSIUM SERUM 3.4 MEQ/L (3.5-5.1); SODIUM LEVEL 137 MEQ/L (136-145)
== END ==
LOC: SKLAB2 13:41
PROVIDERS: ATTEND Internal Medicine
DX: D64.9 Anemia, unspecified (principal)

== ENCOUNTER → 2019-05-16 | Outpatient (REF) | payer MEDICARE, MEDICAID ==
[~2019-05-16] MED LIST changes: -IRBE150T12 PO; +IRBE150T7 PO
[2019-05-16 13:57] LABS: ALBUMIN 3.3 GM/DL (3.2-5.2); BILIRUBIN,TOTAL 0.2 MG/DL (0.2-1.0); CALCIUM LEVEL 8.9 MG/DL (8.8-10.2); CREATININE FOR GFR 1.21 MG/DL (0.55-1.30); GLOMERULAR FILTRATION RATE 57.2 (>45); PERCENT SATURATION 39.2 % (13.2-45.0); POTASSIUM SERUM 3.8 MEQ/L (3.5-5.1); TOTAL PROTEIN 6.7 GM/DL (6.4-8.2)
== END ==
LOC: SKLAB2 12:34
PROVIDERS: ATTEND Internal Medicine
DX: I11.0 Hypertensive heart disease with heart failure (principal); E11.9 Type 2 diabetes mellitus without complications

== ENCOUNTER → 2019-05-25 | Outpatient (REF) | payer MEDICARE, MEDICAID | LOC: SKLAB2 14:39 | PROVIDERS: ATTEND Internal Medicine | DX: R63.4 Abnormal weight loss (principal) ==

== ENCOUNTER → 2019-06-13 | Outpatient (REF) | payer MEDICARE, MEDICAID ==
[2019-06-13 09:58] LABS: HEMATOCRIT 32.2 % (36.0-47.0); HEMOGLOBIN 10.5 g/dl (12.0-15.5); MEAN CORPUSCULAR HEMOGLOBIN 29.8 pg (27.0-33.0); MEAN CORPUSCULAR HGB CONC 32.6 g/dl (32.0-36.5); MEAN CORPUSCULAR VOLUME 91.5 fl (80.0-96.0); PLATELET COUNT, AUTOMATED 293 10^3/uL (150-450); RED BLOOD COUNT 3.52 10^6/uL (4.00-5.40); WHITE BLOOD COUNT 6.4 10^3/uL (4.0-10.0)
== END ==
LOC: SKLAB2 07:00
PROVIDERS: ATTEND Internal Medicine
DX: D64.9 Anemia, unspecified (principal); Z79.899 Other long term (current) drug therapy

== ENCOUNTER → 2019-07-19 | Outpatient (REF) | payer MEDICARE, MEDICAID ==
[2019-07-19 07:55] LABS: MEAN CORPUSCULAR HEMOGLOBIN 29.9 pg (27.0-33.0); MEAN CORPUSCULAR HGB CONC 32.3 g/dl (32.0-36.5); MEAN CORPUSCULAR VOLUME 92.5 fl (80.0-96.0); PLATELET COUNT, AUTOMATED 261 10^3/uL (150-450); RED BLOOD COUNT 3.35 10^6/uL (4.00-5.40); WHITE BLOOD COUNT 6.8 10^3/uL (4.0-10.0)
== END ==
LOC: SKLAB2 07:00
PROVIDERS: ATTEND Internal Medicine
DX: D64.9 Anemia, unspecified (principal)

== ENCOUNTER → 2019-08-08 | Outpatient (REF) | payer MEDICARE, MEDICAID ==
[2019-08-08 14:37] LABS: APPEARANCE, URINE CLOUDY (CLEAR); BACTERIA, URINE AUTO 2+ (NEGATIVE); BILIRUBIN, URINE AUTO NEGATIVE (NEGATIVE); BLOOD, URINE BLOOD 2+ (NEGATIVE); COLOR, URINE YELLOW (YELLOW); GLUCOSE, URINE (UA) AUTO NEGATIVE (NEGATIVE); KETONE, URINE AUTO NEGATIVE (NEGATIVE); LEUKOCYTE ESTERASE, URINE AUTO 3+ (NEGATIVE); MUCUS, URINE SMALL (NEGATIVE); NITRITE, URINE AUTO NEGATIVE (NEGATIVE); PROTEIN, URINE AUTO NEGATIVE (NEGATIVE); RBC, URINE AUTO 2 /HPF (0-3); SPECIFIC GRAVITY URINE AUTO 1.011 (1.002-1.035); SQUAMOUS EPITHELIAL CELL UR AU 4 /HPF (0-6); UROBILINOGEN, URINE AUTO 0.2 mg/dL (0.0-2.0); WBC, URINE AUTO 23 /HPF (0-3)
== END ==
LOC: SKLAB2 11:21
PROVIDERS: ATTEND Internal Medicine
DX: R30.0 Dysuria (principal)

== ENCOUNTER → 2019-08-16 | Outpatient (REF) | payer MEDICARE, MEDICAID ==
[2019-08-16 09:00] LABS: HEMATOCRIT 30.2 % (36.0-47.0); HEMOGLOBIN 9.7 g/dl (12.0-15.5); MEAN CORPUSCULAR HEMOGLOBIN 29.9 pg (27.0-33.0); MEAN CORPUSCULAR HGB CONC 32.1 g/dl (32.0-36.5); MEAN CORPUSCULAR VOLUME 93.2 fl (80.0-96.0); PLATELET COUNT, AUTOMATED 322 10^3/uL (150-450); RED BLOOD COUNT 3.24 10^6/uL (4.00-5.40); WHITE BLOOD COUNT 6.7 10^3/uL (4.0-10.0)
[2019-08-16 09:19] LABS: ALBUMIN 3.1 GM/DL (3.2-5.2); ALT/SGPT 19 U/L (12-78); BILIRUBIN,TOTAL 0.2 MG/DL (0.2-1.0); BLOOD UREA NITROGEN 27 MG/DL (7-18); CALCIUM LEVEL 8.8 MG/DL (8.8-10.2); CARBON DIOXIDE LEVEL 33 MEQ/L (21-32); CHLORIDE LEVEL 100 MEQ/L (98-107); CREATININE FOR GFR 1.11 MG/DL (0.55-1.30); GLOMERULAR FILTRATION RATE > 60.0 (>45); GLUCOSE, FASTING 184 MG/DL (70-100); IRON (FE) 72 UG/DL (50-170); PERCENT SATURATION 37.5 % (13.2-45.0); POTASSIUM SERUM 3.6 MEQ/L (3.5-5.1); SODIUM LEVEL 140 MEQ/L (136-145); TOTAL IRON BINDING CAPACITY 192 UG/DL (250-450); TOTAL PROTEIN 6.8 GM/DL (6.4-8.2)
== END ==
LOC: SKLAB2 07:00
PROVIDERS: ATTEND Internal Medicine
DX: D64.9 Anemia, unspecified (principal); I50.9 Heart failure, unspecified; E11.9 Type 2 diabetes mellitus without complications; I11.0 Hypertensive heart disease with heart failure

== ENCOUNTER → 2019-08-16 | Outpatient (REF) | LOC: SKLAB2 07:00 | PROVIDERS: ATTEND Internal Medicine | DX: Z03.818 Encounter for observation for suspected exposure to other biological agents ruled out (principal) ==

== ENCOUNTER → 2019-09-13 | Outpatient (REF) | payer MEDICARE, MEDICAID ==
[2019-09-13 09:13] LABS: HEMATOCRIT 31.2 % (36.0-47.0); MEAN CORPUSCULAR HGB CONC 32.1 g/dl (32.0-36.5); MEAN CORPUSCULAR VOLUME 93.7 fl (80.0-96.0); PLATELET COUNT, AUTOMATED 349 10^3/uL (150-450); RED BLOOD COUNT 3.33 10^6/uL (4.00-5.40); WHITE BLOOD COUNT 7.9 10^3/uL (4.0-10.0)
[2019-09-13 09:25] LABS: CHOLESTEROL RISK RATIO 3.145 (<5)
== END ==
LOC: SKLAB2 07:30
PROVIDERS: ATTEND Internal Medicine
DX: D64.9 Anemia, unspecified (principal); E78.5 Hyperlipidemia, unspecified

== ENCOUNTER → 2019-10-19 | Outpatient (REF) | payer MEDICARE, MEDICAID ==
[2019-10-19 07:52] LABS: HEMATOCRIT 33.3 % (36.0-47.0); HEMOGLOBIN 10.9 g/dl (12.0-15.5); MEAN CORPUSCULAR HEMOGLOBIN 30.8 pg (27.0-33.0); MEAN CORPUSCULAR HGB CONC 32.7 g/dl (32.0-36.5); MEAN CORPUSCULAR VOLUME 94.1 fl (80.0-96.0); PLATELET COUNT, AUTOMATED 286 10^3/uL (150-450); RED BLOOD COUNT 3.54 10^6/uL (4.00-5.40); WHITE BLOOD COUNT 6.4 10^3/uL (4.0-10.0)
[2019-10-19 11:13] LABS: HEMOGLOBIN A1c 8.8 %
== END ==
LOC: SKLAB2 10-18 07:00
PROVIDERS: ATTEND Internal Medicine
DX: D64.9 Anemia, unspecified (principal); E11.9 Type 2 diabetes mellitus without complications

== ENCOUNTER → 2019-11-15 | Outpatient (REF) | payer MEDICARE, MEDICAID ==
[~2019-11-15] MED LIST changes: +AMLO1TAB24 PO; -AMLO5TAB6 PO
[2020-01-24 08:53] LABS: HEMOGLOBIN 9.9 g/dl (12.0-15.5); RED BLOOD COUNT 3.31 10^6/uL (4.00-5.40); WHITE BLOOD COUNT 6.7 10^3/uL (4.0-10.0)
[2020-01-24 08:54] LABS: HEMATOCRIT 30.8 % (36.0-47.0); MEAN CORPUSCULAR HEMOGLOBIN 29.9 pg (27.0-33.0); MEAN CORPUSCULAR HGB CONC 32.1 g/dl (32.0-36.5); MEAN CORPUSCULAR VOLUME 93.1 fl (80.0-96.0); PLATELET COUNT, AUTOMATED 309 10^3/uL (150-450)
[2020-02-11 07:54] LABS: ALBUMIN 3.3 GM/DL (3.2-5.2); ALT/SGPT 16 U/L (12-78); BILIRUBIN,TOTAL 0.2 MG/DL (0.2-1.0); BLOOD UREA NITROGEN 33 MG/DL (7-18); CALCIUM LEVEL 8.9 MG/DL (8.8-10.2); CARBON DIOXIDE LEVEL 32 MEQ/L (21-32); CHLORIDE LEVEL 103 MEQ/L (98-107); CREATININE FOR GFR 1.07 MG/DL (0.55-1.30); GLOMERULAR FILTRATION RATE > 60.0 (>45); GLUCOSE, FASTING 186 MG/DL (70-100); IRON (FE) 77 UG/DL (50-170); PERCENT SATURATION 37.2 % (13.2-45.0); POTASSIUM SERUM 3.6 MEQ/L (3.5-5.1); SODIUM LEVEL 142 MEQ/L (136-145); TOTAL 25(OH) VITAMIN D 64.5 NG/ML (30.0-100.0); TOTAL IRON BINDING CAPACITY 207 UG/DL (250-450)
== END ==
LOC: SKLAB2 14:26
DX: D64.9 Anemia, unspecified (principal); I50.9 Heart failure, unspecified; I11.0 Hypertensive heart disease with heart failure; E11.9 Type 2 diabetes mellitus without complications

== ENCOUNTER → 2019-12-20 | Outpatient (REF) | payer MEDICARE, MEDICAID ==
[2019-12-20 08:17] LABS: HEMATOCRIT 27.2 % (36.0-47.0); HEMOGLOBIN 8.6 g/dl (12.0-15.5); MEAN CORPUSCULAR HEMOGLOBIN 29.8 pg (27.0-33.0); MEAN CORPUSCULAR HGB CONC 31.6 g/dl (32.0-36.5); MEAN CORPUSCULAR VOLUME 94.1 fl (80.0-96.0); PLATELET COUNT, AUTOMATED 350 10^3/uL (150-450); RED BLOOD COUNT 2.89 10^6/uL (4.00-5.40); WHITE BLOOD COUNT 8.6 10^3/uL (4.0-10.0)
== END ==
LOC: SKLAB2 07:00
DX: D64.9 Anemia, unspecified (principal)

== ENCOUNTER → 2020-01-09 | Outpatient (REF) | payer MEDICARE, MEDICAID ==
[2020-01-09 07:20] LABS: BASO % 0.4 % (0.0-1.0); EOS # 0.4 10^3/uL (0.0-0.5); HEMATOCRIT 27.6 % (36.0-47.0); HEMOGLOBIN 8.5 g/dl (12.0-15.5); LYMPH # 1.2 10^3/uL (1.5-5.0); LYMPH % 15.4 % (24.0-44.0); MEAN CORPUSCULAR HEMOGLOBIN 29.5 pg (27.0-33.0); MEAN CORPUSCULAR HGB CONC 30.8 g/dl (32.0-36.5); MEAN CORPUSCULAR VOLUME 95.8 fl (80.0-96.0); MONO # 0.9 10^3/uL (0.0-0.8); MONO % 11.5 % (0.0-5.0); NEUTROPHILS # 5.4 10^3/uL (1.5-8.5); NEUTROPHILS % 67.1 % (36.0-66.0); PLATELET COUNT, AUTOMATED 336 10^3/uL (150-450); RED BLOOD COUNT 2.88 10^6/uL (4.00-5.40)
== END ==
LOC: SKLAB2 07:00
DX: D64.9 Anemia, unspecified (principal)

== ENCOUNTER → 2020-01-12 | Outpatient (CLI) | payer MEDICARE, MEDICAID ==
--- NOTE | 2020-01-17 07:24 | REP ---
BILATERAL BREAST ULTRASOUND HISTORY: Left breast cancer and mastectomy, right breast upper outer quadrant pain. Real-time sonographic evaluation of the right breast is performed in the upper outer quadrant in the region of reported pain. No cystic or solid nodule is seen in that region sonographically. Real-time sonographic evaluation of the left chest wall is performed. Status post left mastectomy for breast cancer. There is no underlying cystic or solid mass. IMPRESSION: BI-RADS Category 1 negative bilateral breast ultrasound. On the right in the region of reported pain in the upper outer quadrant, there is no underlying cystic or solid nodule. On the left, the patient has had a prior mastectomy for breast cancer. Along the surgical scar, there is no underlying cystic or solid mass. MTDD
== END ==
LOC: M WHC 11:34
PROVIDERS: ATTEND Nurse Practitioner
DX: N64.4 Mastodynia (principal); Z85.3 Personal history of malignant neoplasm of breast; Z90.12 Acquired absence of left breast and nipple

== ENCOUNTER → 2020-01-17 | Outpatient (REF) | payer MEDICARE, MEDICAID ==
[2020-01-17 10:22] LABS: HEMATOCRIT 28.6 % (36.0-47.0); HEMOGLOBIN 8.9 g/dl (12.0-15.5); MEAN CORPUSCULAR HEMOGLOBIN 29.9 pg (27.0-33.0); MEAN CORPUSCULAR HGB CONC 31.1 g/dl (32.0-36.5); PLATELET COUNT, AUTOMATED 326 10^3/uL (150-450); RED BLOOD COUNT 2.98 10^6/uL (4.00-5.40); WHITE BLOOD COUNT 9.3 10^3/uL (4.0-10.0)
== END ==
LOC: SKLAB2 08:00
DX: D64.9 Anemia, unspecified (principal)

== ENCOUNTER → 2020-02-14 | Outpatient (REF) | payer MEDICARE, MEDICAID ==
[~2020-02-14] MED LIST changes: +RISP-8 PO; -RISP1TAB3 PO
[2020-02-14 09:47] LABS: HEMATOCRIT 26.9 % (36.0-47.0); HEMOGLOBIN 8.1 g/dl (12.0-15.5); MEAN CORPUSCULAR HEMOGLOBIN 29.5 pg (27.0-33.0); MEAN CORPUSCULAR HGB CONC 30.1 g/dl (32.0-36.5); MEAN CORPUSCULAR VOLUME 97.8 fl (80.0-96.0); PLATELET COUNT, AUTOMATED 326 10^3/uL (150-450); RED BLOOD COUNT 2.75 10^6/uL (4.00-5.40); WHITE BLOOD COUNT 9.3 10^3/uL (4.0-10.0)
[2020-02-14 10:04] LABS: HEMOGLOBIN A1c 8.3 %
[2020-02-14 10:58] LABS: ALBUMIN 3.1 GM/DL (3.2-5.2); BILIRUBIN,TOTAL 0.3 MG/DL (0.2-1.0); CALCIUM LEVEL 8.8 MG/DL (8.8-10.2); CREATININE FOR GFR 1.21 MG/DL (0.55-1.30); GLOMERULAR FILTRATION RATE 57.1 (>45); PERCENT SATURATION 20.6 % (13.2-45.0); PHENYTOIN (DILANTIN) 8.5 UG/ML (10.0-20.0); POTASSIUM SERUM 4.3 MEQ/L (3.5-5.1); THYROID STIMULATING HORMONE 0.855 uIU/ML (0.358-3.740); TOTAL PROTEIN 6.8 GM/DL (6.4-8.2)
== END ==
LOC: SKLAB2 08:30
DX: D64.9 Anemia, unspecified (principal); I11.0 Hypertensive heart disease with heart failure; I50.9 Heart failure, unspecified; E11.9 Type 2 diabetes mellitus without complications; R56.9 Unspecified convulsions; Z78.0 Asymptomatic menopausal state

== ENCOUNTER → 2020-02-14 | Outpatient (CLI) | payer MEDICARE, MEDICAID ==
[~2020-02-14] MED LIST changes: -RISP-8 PO; +RISP1TAB3 PO
--- NOTE | 2020-02-14 14:36 | DEXA ---
INDICATION: R/O OSTEOPOROSIS. COMPARISON: None. TECHNIQUE: Bone density was measured using dual-energy x-ray absorptionmetry (DEXA). Limited exam due to patient condition. FINDINGS: AP SPINE L1-L4 BMD 1.127 g/cm2 Young Adult T-Score -0.5 Age Matched Z-Score 0.4. RT FEMUR, TOTAL BMD 0.725 g/cm2 Young Adult T-Score -2.2 Age Matched Z-Score -1.8. RT NECK BMD 0.746 g/cm2 Young Adult T-Score -2.1 Age Matched Z-Score -1.4. IMPRESSION: There is normal bone densitometry of the spine. There is low bone density of the right hip. FOLLOW-UP: Recommendation for the next bone density exam: 2 years. <Electronically signed by Thomas Florentino > 02/14/20 [id number]
== END ==
LOC: M WHC 11:29
PROVIDERS: ATTEND Nurse Practitioner
DX: Z78.0 Asymptomatic menopausal state (principal)

== ENCOUNTER → 2020-02-16 | Outpatient (REF) | payer MEDICAID, MEDICARE | LOC: SKLAB2 12:44 | DX: Z20.828 Contact with and (suspected) exposure to other viral communicable diseases (principal) ==

== ENCOUNTER → 2020-02-20 | Outpatient (REF) | payer MEDICARE, MEDICAID ==
[2020-02-20 14:16] LABS: ALBUMIN 3.2 GM/DL (3.2-5.2); ALT/SGPT 18 U/L (12-78); BILIRUBIN,DIRECT < 0.1 MG/DL (0.0-0.2); BILIRUBIN,TOTAL 0.1 MG/DL (0.2-1.0); PHENYTOIN (DILANTIN) 12.6 UG/ML (10.0-20.0); TOTAL PROTEIN 6.8 GM/DL (6.4-8.2)
== END ==
LOC: SKLAB2 10:23
DX: M81.0 Age-related osteoporosis without current pathological fracture (principal)

== ENCOUNTER → 2020-02-22 | Outpatient (REF) | payer MEDICARE, MEDICAID ==
[~2020-02-22] MED LIST changes: +RISP-8 PO; -RISP1TAB3 PO
== END ==
LOC: SKLAB2 02-21 11:23 → EDSTATUS 03-14 15:58
DX: Z20.818 Contact with and (suspected) exposure to other bacterial communicable diseases (principal)

== ENCOUNTER → 2020-03-14 | Outpatient (REF) | payer MEDICARE, MEDICAID | LOC: SKLAB2 07:33 | DX: Z20.828 Contact with and (suspected) exposure to other viral communicable diseases (principal) ==

== ENCOUNTER → 2020-03-20 | Outpatient (REF) | payer MEDICARE, MEDICAID ==
[2020-03-20 10:11] LABS: HEMATOCRIT 32.7 % (36.0-47.0); HEMOGLOBIN 9.8 g/dl (12.0-15.5); MEAN CORPUSCULAR HEMOGLOBIN 30.3 pg (27.0-33.0); MEAN CORPUSCULAR VOLUME 101.2 fl (80.0-96.0); PLATELET COUNT, AUTOMATED 307 10^3/uL (150-450); RED BLOOD COUNT 3.23 10^6/uL (4.00-5.40)
== END ==
LOC: SKLAB2 08:00
DX: D64.9 Anemia, unspecified (principal)

== ENCOUNTER → 2020-03-21 | Outpatient (REF) | payer MEDICARE, MEDICAID | LOC: SKLAB2 11:30 | DX: Z20.828 Contact with and (suspected) exposure to other viral communicable diseases (principal) ==

== ENCOUNTER → 2020-03-26 | Outpatient (REF) | payer MEDICARE, MEDICAID ==
[2020-03-26 08:56] LABS: BLOOD UREA NITROGEN 36 MG/DL (7-18); CALCIUM LEVEL 7.8 MG/DL (8.8-10.2); CARBON DIOXIDE LEVEL 32 MEQ/L (21-32); CHLORIDE LEVEL 105 MEQ/L (98-107); CREATININE FOR GFR 1.11 MG/DL (0.55-1.30); GLOMERULAR FILTRATION RATE > 60.0 (>45); GLUCOSE, FASTING 138 MG/DL (70-100); POTASSIUM SERUM 4.1 MEQ/L (3.5-5.1); SODIUM LEVEL 142 MEQ/L (136-145)
== END ==
LOC: SKLAB2 07:00
DX: R60.9 Edema, unspecified (principal)

== ENCOUNTER → 2020-03-28 | Outpatient (REF) | payer MEDICARE, MEDICAID | LOC: SKLAB2 08:02 | DX: Z20.828 Contact with and (suspected) exposure to other viral communicable diseases (principal) ==

== ENCOUNTER → 2020-04-04 | Outpatient (REF) | payer MEDICARE, MEDICAID ==
--- NOTE | 2020-04-04 18:14 | ECGEPIP ---
[facility] Test Date: 2020-04-04 Pat Name: DEE DEE SCHULTZ Department: Room: - Gender: Female Parts Interpreter: DRE : 1950 Requested By: Юлия Vicente Order Number: [id number] Reading MD: Jorge Lam Measurements Intervals [place] Rate: 57 P: [place]: 0 QRS: 62 QRSD: 95 T: 211 QT: 437 QTc: 426 Interpretive Statements Probable atrial fibrillation with a slow ventricular response; P waves not visualized Nonspecific ST-T wave abnormalities Compared to prior tracing of 08/09/2018, atrial fibrillation appears to be new a and heart rate is slower Electronically Signed on 04-04-2020 18:14:32 EST by Jorge Lam
== END ==
LOC: SKLAB2 10:12
DX: Z20.828 Contact with and (suspected) exposure to other viral communicable diseases (principal); I48.91 Unspecified atrial fibrillation
CPT/HCPCS: 93005; U0003

== ENCOUNTER → 2020-04-05 | Outpatient (REF) | payer MEDICARE, MEDICAID ==
[2020-04-05 10:28] LABS: BLOOD UREA NITROGEN 39 MG/DL (7-18); CALCIUM LEVEL 7.5 MG/DL (8.8-10.2); CARBON DIOXIDE LEVEL 36 MEQ/L (21-32); CHLORIDE LEVEL 103 MEQ/L (98-107); CREATININE FOR GFR 1.12 MG/DL (0.55-1.30); GLOMERULAR FILTRATION RATE > 60.0 (>45); GLUCOSE, FASTING 159 MG/DL (70-100); POTASSIUM SERUM 3.6 MEQ/L (3.5-5.1); SODIUM LEVEL 143 MEQ/L (136-145)
== END ==
LOC: SKLAB2 07:00
DX: I50.9 Heart failure, unspecified (principal)

== ENCOUNTER → 2020-04-10 | Outpatient (REF) | payer MEDICARE, MEDICAID ==
[2020-04-10 11:02] LABS: BLOOD UREA NITROGEN 38 MG/DL (7-18); CALCIUM LEVEL 9.6 MG/DL (8.8-10.2); CARBON DIOXIDE LEVEL 40 MEQ/L (21-32); CHLORIDE LEVEL 97 MEQ/L (98-107); GLOMERULAR FILTRATION RATE > 60.0 (>45); GLUCOSE, FASTING 205 MG/DL (70-100); POTASSIUM SERUM 3.8 MEQ/L (3.5-5.1); SODIUM LEVEL 139 MEQ/L (136-145)
== END ==
LOC: SKLAB2 08:56
DX: I50.9 Heart failure, unspecified (principal)

== ENCOUNTER → 2020-04-11 | Outpatient (REF) | payer MEDICARE, MEDICAID | LOC: SKLAB2 07:00 | PROVIDERS: ATTEND Internal Medicine | DX: Z11.52 Encounter for screening for COVID-19 (principal) ==

== ENCOUNTER → 2020-04-17 | Outpatient (REF) | payer MEDICARE, MEDICAID ==
[~2020-04-17] MED LIST changes: +GABA-282 PO; -GABA-843 PO
[2020-04-17 11:10] LABS: HEMATOCRIT 25.7 % (36.0-47.0); HEMOGLOBIN 7.7 g/dl (12.0-15.5); PLATELET COUNT, AUTOMATED 268 10^3/uL (150-450); RED BLOOD COUNT 2.57 10^6/uL (4.00-5.40); WHITE BLOOD COUNT 7.2 10^3/uL (4.0-10.0)
[2020-04-17 11:32] LABS: CALCIUM LEVEL 8.6 MG/DL (8.8-10.2); CREATININE FOR GFR 1.57 MG/DL (0.55-1.30); GLOMERULAR FILTRATION RATE 42.3 (>45); POTASSIUM SERUM 4.3 MEQ/L (3.5-5.1)
== END ==
LOC: SKLAB2 07:00
DX: D64.9 Anemia, unspecified (principal)

== ENCOUNTER → 2020-04-18 | Outpatient (REF) | payer MEDICARE, MEDICAID | LOC: SKLAB2 07:00 | PROVIDERS: ATTEND Internal Medicine | DX: Z20.822 Contact with and (suspected) exposure to COVID-19 (principal) ==

== ENCOUNTER → 2020-04-24 | Outpatient (REF) | payer MEDICARE, MEDICAID ==
[~2020-04-24] MED LIST changes: +LISI10TA22 PO; -LISI10TA4 PO
[2020-04-24 10:25] LABS: HEMATOCRIT 26.6 % (36.0-47.0); HEMOGLOBIN 7.9 g/dl (12.0-15.5); MEAN CORPUSCULAR HEMOGLOBIN 29.5 pg (27.0-33.0); MEAN CORPUSCULAR HGB CONC 29.7 g/dl (32.0-36.5); MEAN CORPUSCULAR VOLUME 99.3 fl (80.0-96.0); PLATELET COUNT, AUTOMATED 300 10^3/uL (150-450); RED BLOOD COUNT 2.68 10^6/uL (4.00-5.40); WHITE BLOOD COUNT 8.2 10^3/uL (4.0-10.0)
[2020-04-24 10:55] LABS: CREATININE FOR GFR 1.54 MG/DL (0.55-1.30); GLOMERULAR FILTRATION RATE 43.2 (>45); POTASSIUM SERUM 4.6 MEQ/L (3.5-5.1)
== END ==
LOC: SKLAB2 07:00
DX: E11.9 Type 2 diabetes mellitus without complications (principal); I10 Essential (primary) hypertension; J44.9 Chronic obstructive pulmonary disease, unspecified

== ENCOUNTER → 2020-04-25 | Outpatient (REF) | payer MEDICARE, MEDICAID | LOC: SKLAB2 07:00 | PROVIDERS: ATTEND Internal Medicine | DX: Z20.822 Contact with and (suspected) exposure to COVID-19 (principal) ==

== ENCOUNTER → 2020-05-02 | Outpatient (REF) | payer MEDICARE, MEDICAID | LOC: SKLAB2 14:03 | PROVIDERS: ATTEND Internal Medicine | DX: Z20.822 Contact with and (suspected) exposure to COVID-19 (principal) ==

== ENCOUNTER → 2020-05-09 | Outpatient (REF) | payer MEDICARE, MEDICAID | LOC: SKLAB2 10:36 | PROVIDERS: ATTEND Internal Medicine | DX: Z11.52 Encounter for screening for COVID-19 (principal) ==

== ENCOUNTER → 2020-05-15 | Outpatient (REF) | payer MEDICARE, MEDICAID ==
[2020-05-15 09:45] LABS: HEMOGLOBIN 8.2 g/dl (12.0-15.5); MEAN CORPUSCULAR HEMOGLOBIN 28.2 pg (27.0-33.0); MEAN CORPUSCULAR HGB CONC 29.3 g/dl (32.0-36.5); MEAN CORPUSCULAR VOLUME 96.2 fl (80.0-96.0); PLATELET COUNT, AUTOMATED 239 10^3/uL (150-450); RED BLOOD COUNT 2.91 10^6/uL (4.00-5.40); WHITE BLOOD COUNT 11.4 10^3/uL (4.0-10.0)
[2020-05-15 10:19] LABS: ALBUMIN 3.4 GM/DL (3.2-5.2); BILIRUBIN,TOTAL 0.5 MG/DL (0.2-1.0); CALCIUM LEVEL 8.2 MG/DL (8.8-10.2); CREATININE FOR GFR 1.48 MG/DL (0.55-1.30); GLOMERULAR FILTRATION RATE 45.2 (>45); POTASSIUM SERUM 5.3 MEQ/L (3.5-5.1); THYROID STIMULATING HORMONE 0.623 uIU/ML (0.358-3.740); TOTAL PROTEIN 7.2 GM/DL (6.4-8.2)
== END ==
LOC: SKLAB2 10:50
DX: D64.9 Anemia, unspecified (principal); E11.9 Type 2 diabetes mellitus without complications

== ENCOUNTER → 2020-05-16 | Outpatient (REF) | payer MEDICARE, MEDICAID | LOC: SKLAB2 10:49 | PROVIDERS: ATTEND Internal Medicine | DX: Z20.822 Contact with and (suspected) exposure to COVID-19 (principal) ==

== ENCOUNTER → 2020-05-22 | Outpatient (REF) | payer MEDICARE, MEDICAID ==
[2020-05-22 11:37] LABS: CREATININE FOR GFR 2.18 MG/DL (0.55-1.30); GLOMERULAR FILTRATION RATE 28.9 (>45)
[2020-05-22 11:38] LABS: POTASSIUM SERUM 6.5 MEQ/L (3.5-5.1)
== END ==
LOC: SKLAB2 14:21
DX: I50.9 Heart failure, unspecified (principal)

== ENCOUNTER → 2020-05-23 | Outpatient (REF) | payer MEDICARE, MEDICAID ==
--- NOTE | 2020-05-23 14:22 | REP ---
INDICATION: BLOOD IN SPUTUM. COMPARISON: Comparison chest x-ray September 17, 2018.. TECHNIQUE: Portable upright AP radiograph. FINDINGS: Moderate cardiomegaly is again observed. Pulmonary vascular and interstitial markings are diffusely prominent. There is no evidence of pleural effusion. No focal infiltrate is seen. IMPRESSION: CHF pattern with cardiomegaly vascular cephalization and congestion. No pleural effusion seen. <Electronically signed by Thomas Florentino > 05/23/20 1171
== END ==
LOC: SKLAB2 07:56
PROVIDERS: ATTEND Internal Medicine
DX: Z20.822 Contact with and (suspected) exposure to COVID-19 (principal)
CPT/HCPCS: 71045; U0003

== ENCOUNTER → 2020-05-24 | Outpatient (REF) | payer MEDICARE, MEDICAID ==
[2020-05-24 09:36] LABS: CALCIUM LEVEL 8.1 MG/DL (8.8-10.2); CREATININE FOR GFR 1.62 MG/DL (0.55-1.30); GLOMERULAR FILTRATION RATE 40.8 (>45); POTASSIUM SERUM 5.3 MEQ/L (3.5-5.1)
[2020-05-24 11:09] LABS: HEMOGLOBIN A1c 8.3 %
== END ==
LOC: SKLAB2 07:52
DX: N17.9 Acute kidney failure, unspecified (principal); R73.09 Other abnormal glucose

== ENCOUNTER → 2020-05-25 | Outpatient (REF) | payer MEDICARE, MEDICAID ==
[2020-05-25 09:56] LABS: CALCIUM LEVEL 7.6 MG/DL (8.8-10.2); CREATININE FOR GFR 1.5 MG/DL (0.55-1.30); GLOMERULAR FILTRATION RATE 44.5 (>45); POTASSIUM SERUM 4.7 MEQ/L (3.5-5.1)
== END ==
LOC: SKLAB2 09:47
DX: N19 Unspecified kidney failure (principal)

== ENCOUNTER → 2020-05-28 | Outpatient (REF) | payer MEDICARE, MEDICAID ==
[2020-05-28 11:27] LABS: CALCIUM LEVEL 8.1 MG/DL (8.8-10.2); CREATININE FOR GFR 1.4 MG/DL (0.55-1.30); GLOMERULAR FILTRATION RATE 48.2 (>45); POTASSIUM SERUM 4.7 MEQ/L (3.5-5.1)
== END ==
LOC: SKLAB7 08:24 → SKLAB2 10:04
DX: E86.0 Dehydration (principal)

== ENCOUNTER → 2020-05-30 | Outpatient (REF) | payer MEDICARE, MEDICAID ==
[~2020-05-30] MED LIST changes: +ACET650T15 PO; +ACET65SU PR; +ANOR1AER PO; +CHLO1.4S2 PO; +ELIQ5TAB PO; +GUAI100L31 PO; +HM S0.65 NARES; +HYDR-3713 PO; +IPRA0.00 NEB; +JARD1TAB PO; +LEVO137T2 PO; +PSYLPOW4 PO; +QC A650T3 PO; +QUET50TA3 PO; +VITA500C24 PO; +VOLT1GEL15 TOP
== END ==
LOC: SKLAB2 09:19
PROVIDERS: ATTEND Internal Medicine
DX: Z20.822 Contact with and (suspected) exposure to COVID-19 (principal)

== ENCOUNTER 2020-06-01 23:53 | Inpatient (IN) | payer MEDICARE, MEDICAID ==
[~2020-06-01] VITALS: Ht 154.9 cm; Wt 116.2 kg
[~2020-06-01 23:53] MED LIST changes: -ACET650T15 PO; -ACET65SU PR; -ANOR1AER PO; -CHLO1.4S2 PO; -ELIQ5TAB PO; -GUAI100L31 PO; -HM S0.65 NARES; -HYDR-3713 PO; -IPRA0.00 NEB; -JARD1TAB PO; -LEVO137T2 PO; -PSYLPOW4 PO; -QC A650T3 PO; -QUET50TA3 PO; -VITA500C24 PO; -VOLT1GEL15 TOP
--- OUTSIDE RECORDS SUMMARY | 2020-06-01 23:58 | CCD ---
Author Author [facility] Organization [facility] Address Unknown Phone Unavailable Care Team Providers Care Record Center Coordinator Name Role Phone Tricbrodie J Liseth PA Unavailable Unavailable Trickey, J Liseth PA Unavailable Unavailable Trickey, J Liseth PA Unavailable Unavailable Trickey, J Liseth PA Unavailable Unavailable Trickey, J Liseth PA Unavailable Unavailable Trickey, J Liseth PA Unavailable Unavailable Trickey, J Liseth PA Unavailable Unavailable Trickey, J Liseth PA Unavailable Unavailable Trickey, J Liseth PA Unavailable Unavailable Trickey, J Liseth PA Unavailable Unavailable Trickey, J Liesth PA Unavailable Unavailable Trickey, J Liseth PA Unavailable Unavailable Trickey, J Liseth PA Unavailable Unavailable Trickey, J Liseth PA Unavailable Unavailable Trickey, J Liseth PA Unavailable Unavailable Trickey, J Liseth PA Unavailable Unavailable Trickey, J Liseth PA Unavailable Unavailable Trickey, J Liseth PA Unavailable Unavailable Trickey, J Liseth PA Unavailable Unavailable Trickey, J Liseth PA Unavailable Unavailable Trickey, J Liseth PA Unavailable Unavailable Trickey, J Liseth PA Unavailable Unavailable Trickey, J Liseth PA Unavailable Unavailable Trickey, J Liseth PA Unavailable Unavailable Trickey, J Liseth PA Unavailable Unavailable Trickey, J Liseth PA Unavailable Unavailable Trickey, J Liseth PA Unavailable Unavailable Trickey, J Liseth PA Unavailable Unavailable Trickey, J Liseth PA Unavailable Unavailable Trickey, J Liseth PA Unavailable Unavailable Trickey, J Liseth PA Unavailable Unavailable Trickey, J Liseth PA Unavailable Unavailable Trickey, J Liseth PA Unavailable Unavailable Trickey, J Liseth PA Unavailable Unavailable Trickey, J Liseth PA Unavailable Unavailable Trickey, J Liseth PA Unavailable Unavailable Trickey, J Liseth PA Unavailable Unavailable Trickey, J Liseth PA Unavailable Unavailable Trickey, J Liseth PA Unavailable Unavailable Trickey, J Liseth PA Unavailable Unavailable Trickey, J Liseth PA Unavailable Unavailable Trickey, J Liseth PA Unavailable Unavailable Trickey, J Liseth PA Unavailable Unavailable Trickey, J Liseth PA Unavailable Unavailable Trickey, J Liseth PA Unavailable Unavailable Trickey, J Liseth PA Unavailable Unavailable Trickey, J Liseth PA Unavailable Unavailable Trickey, J Liseth PA Unavailable Unavailable Abebe, L Mariaelena PA Unavailable Unavailable Abebe, Suresh KimMariaelena PA Unavailable Unavailable Abebe, Suresh KmiMariaelena PA Unavailable Unavailable Abebe, Suresh KimMariaelena PA Unavailable Unavailable Abebe, Suresh KimMariaelena PA Unavailable Unavailable Abebe, Suresh Mraiaelena PA Unavailable Unavailable Abebe, L Mariaelena PA Unavailable Unavailable Abebe, L Mariaelena PA Unavailable Unavailable Abebe, L Mariaelena PA Unavailable Unavailable Abebe, L Mariaelena PA Unavailable Unavailable Abebe, L Mariaelena PA Unavailable Unavailable Abebe, L Mariaelena PA Unavailable Unavailable Abebe, L Mariaelena PA Unavailable Unavailable Abebe, L Mariaelena PA Unavailable Unavailable Abebe, L Mariaelena PA Unavailable Unavailable Abebe, L Mariaelena PA Unavailable Unavailable Abebe, Suresh KimMariaelena PA Unavailable Unavailable Abebe, Suresh KimMariaelena PA Unavailable Unavailable Abebe, Suresh Mariaelena PA Unavailable Unavailable Abebe, Suresh Mariaelena PA Unavailable Unavailable Abebe, L Mariaelena PA Unavailable Unavailable Abebe, Suresh Mariaelena PA Unavailable Unavailable Abebe, L Mariaelena PA Unavailable Unavailable Abebe, L Mariaelena PA Unavailable Unavailable Abebe, L Mariaelena PA Unavailable Unavailable Abebe, L Mariaelena PA Unavailable Unavailable Abebe, L Mariaelena PA Unavailable Unavailable Abebe, L Mariaelena PA Unavailable Unavailable Abebe, L Mariaelena PA Unavailable Unavailable Abebe, L Mariaelena PA Unavailable Unavailable Abebe, L Mariaelena PA Unavailable Unavailable Abebe, L Mariaelena PA Unavailable Unavailable Abebe, L Mariaelena PA Unavailable Unavailable Abebe, L Mariaelena PA Unavailable Unavailable Abebe, L Mariaelena PA Unavailable Unavailable Abebe, L Mariaelena PA Unavailable Unavailable Hadian, Christian Unavailable Unavailable Hadian, Christian Unavailable Unavailable Hadian, Christian Unavailable Unavailable Hadian, Christian Unavailable Unavailable Hadian, Christian Unavailable Unavailable Hadian, Christian Unavailable Unavailable Hadian, Christian Unavailable Unavailable Hadian, Christian Unavailable Unavailable Hadian, Christian Unavailable Unavailable Hadian, Christian Unavailable Unavailable Hadian, Christian Unavailable Unavailable Hadian, Christian Unavailable Unavailable Hadian, Christian Unavailable Unavailable Hadian, Christian Unavailable Unavailable Hadian, Christian Unavailable Unavailable Hadian, Christian Unavailable Unavailable Hadian, Christian Unavailable Unavailable Hadian, Christian Unavailable Unavailable Hadian, Christian Unavailable Unavailable Hadian, Christian Unavailable Unavailable Hadian, Christian Unavailable Unavailable Hadian, Christian Unavailable Unavailable Hadian, Christian Unavailable Unavailable Hadian, Christian Unavailable Unavailable Hadian, Christian Unavailable Unavailable Hadian, Christian Unavailable Unavailable Hadian, Christian Unavailable Unavailable Hadian, Christian Unavailable Unavailable Hadian, Christian Unavailable Unavailable Hadian, Christian Unavailable Unavailable Hadian, Christian Unavailable Unavailable Hadian, Christian Unavailable Unavailable Hadian, Christian Unavailable Unavailable Re-disclosure Warning The records that you are about to access may contain information from federally-assisted alcohol or drug abuse programs. If such information is present, then the following federally mandated warning applies: This information has been disclosed to you from records protected by federal confidentiality rules (42 CFR part 2). The federal rules prohibit you from making any further disclosure of this information unless further disclosure is expressly permitted by the written consent of the person to whom it pertains or as otherwise permitted by 42 CFR part 2. A general authorization for the release of medical or other information is NOT sufficient for this purpose. The Federal rules restrict any use of the information to criminally investigate or prosecute any alcohol or drug abuse patient.The records that you are about to access may contain highly sensitive health information, the redisclosure of which is protected by Article 27-F of the [facility] Public Health law. If you continue you may have access to information: Regarding HIV / AIDS; Provided by facilities licensed or operated by the [facility] Office of Mental Health; or Provided by the [facility] Office for People With Developmental Disabilities. If such information is present, then the following [facility] mandated warning applies: This information has been disclosed to you from confidential records which are protected by state law. State law prohibits you from making any further disclosure of this information without the specific written consent of the person to whom it pertains, or as otherwise permitted by law. Any unauthorized further disclosure in violation of state law may result in a fine or assisted sentence or both. A general authorization for the release of medical or other information is NOT sufficient authorization for further disc losure. Family History Family Member Name Family Member Gender Family Member Status Date o f Status Description Data Source(s) Unknown Unknown Problem [facility] ([facility] mother Unknown Unknown Problem [facility] ([facility]) Encounters Encounter Providers Location Date Indications Data Source(s ) Outpatient Attender: Christian Goetz ED-LABPNP 04/18/2020 09:00:00 AM [place] [id number] [facility] Outpatient Attender: Liseth LANDAVEDRE [facility] 06/14/2019 10:30:00 AM EDT [facility] ([facility], ) Outpatient Attender: Mariaelena CROW.JEMAL-[email or web address].JEMAL 12:00:00 AM [facility] Insurance Providers Payer name Policy type / Coverage type Policy ID Covered republican ID Covered republican's relationship to manriquez Policy Manriquez Plan Information [place] [id number] SP [id number] MEDICARE COMPLETE [id number] SP [id number] [facility] [id number] SP [id number] MEDICARE [id number] SP [id number] [facility] [id number] SP [id number] [facility] MEDICARE [id number] S [id number] MEDICAID [id number] UNITED HEALTH MEDICARE [id number] S [id number] MEDICARE [id number] S [id number] MEDICARE [id number] S [id number] A SELF PAY S MEDICARE [id number] SP [id number] A MEDICAID [id number] SP [id number] [facility] MEDICARE [id number] Dariela [id number] MEDICAID [id number] Dariela [id number] [facility] MCRHMO [id number] SP [id number] MEDICAID [id number] SP [id number] MEDICARE [id number] Dariela [id number] A MEDICARE COMPLETE [id number] SP [id number] Medicaid Medigap Part B [id number] Self [id number] Medicare Solutions Commercial [id number] Self [id number] Medicaid Medigap Part B [id number] Self [id number] Medicare Solutions Commercial [id number] Self [id number] Medicare Part B Medicare Primary [id number] Self [id number] [facility] MCRHMO [id number] SP [id number] [facility] MCRHMO [id number] SP [id number] MEDICARE COMPLETE [id number] SP [id number] [facility] [place] [id number] [facility] [id number] SP [id number] [place] [id number] Self [id number] [place] [id number] Self [id number] [place] [id number] Self [id number] [place] Primary [id number] Self [id number] [place] [id number] Self [id number] [place] Primary [id number] Self [id number] Medicaid Medigap Part B [id number] Self [id number] MEDICARE COMPLETE [id number] SP [id number] Medicaid Medigap Part B [id number] Self [id number] MEDICARE COMPLETE [id number] SP [id number] UNITED [facility] MCRHMO [id number] SP [id number] Medicaid Medigap Part B [id number] Self [id number] Medicaid Medigap Part B [id number] Self [id number] MEDICARE COMPLETE [id number] SP [id number] Medicaid Medigap Part B [id number] Self [id number] Medicare Part B Medicare Primary [id number] Self [id number] Medicaid Medigap Part B [id number] Self [id number] Medicare Part B Medicare Primary [id number] Self [id number] MEDICAID M [id number] S [id number] MEDICARE C [id number] S [id number] A [place] MEDICARE PART B C [id number] S [id number] MEDICARE - [place] MCR [id number] S [id number] Medicaid Medigap Part B [id number] Self [id number] Medicare Part B Medicare Primary [id number] Self [id number] [place] [id number] Self [id number] [place] Medicare Primary [id number] Self [id number] MEDICAID [id number] SP [id number] MEDICARE [id number] SP [id number] A MED[place] [id number] [place] [id number] 18 [id number] [place] [id number] Self [id number] [place] Medicare Primary [id number] Self [id number] Medicaid Medigap Part B [id number] Self [id number] Medicare Part B Medicare Primary [id number] Self [id number] Medicaid Medigap Part B [id number] Self [id number] Medicare Part B Medicare Primary [id number] Self [id number] Medicaid Medigap Part B [id number] Self [id number] Medicare Part B Medicare Primary [id number] Self [id number] Medicaid Medigap Part B [id number] Self [id number] Medicare Part B Medicare Primary [id number] Self [id number] MEDICAID [id number] SP [id number] Medicare Part B Medicare Primary A&B Self A&B Medicaid Medicaid 1 1 Self 1 1 MEDICAID M [id number] Self [id number] MEDICARE A [id number] Self [id number] A VNA MEDICAID MANAGED I [id number] Self [id number] VNA HOMECARE OPTIONS [id number] SP [id number] [place] Med[place] B [place] Primary Self Medicare Medicare Primary Self VNA HOMECARE OPTIONS [id number] SP [id number] VNA HOMECARE OPTIONS O [id number] S [id number] MEDICAID -PHYSICIAN [id number] MEDICARE -PHYSICIAN [id number] 18 [id number] MEDICAID -O/P [id number] MEDICARE -O/P [id number] A Problems, Conditions, and Diagnoses Code Display Name Description Problem Type Effective Dates Data Source(s) Z53.29 Procedure and treatment not carried out because of patient's decision for other reasons PROC/TRTMT NOT CRD OUT BEC PT DECISION FOR OTH REASONS Diagn osis 04/18/2020 09:00:00 AM [facility] Z11.52 ENCOUNTER FOR SCREENING FOR COVID-19 ENC OUNTER FOR SCREENING FOR COVID-19 Diagnosis 04/18/2020 09:00:00 AM [facility] 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 [facility] (cu rrent) use of insulin Diagnosis 05/26/2019 09:50:49 AM [facility] E11.65 Type 2 diabetes mellitus with hyperglyce peri Type 2 diabetes mellitus with hyperglyce Diagnosis 05/26/2019 09:50:49 AM [facility] G47.33 Obstructive sleep apnea (adult) (pediatr ic) Obstructive sleep apnea (adult) (pediatr Diagnosis 05/26/2019 09:50:49 AM [facility] I63.9 Cerebral infarction, unspecified Cerebral infarc tion, unspecified Diagnosis 05/26/2019 09:50:49 AM [facility] D64.9 Anemia, unspecified Anemia, unspecified Diagnosis 0 05/26/2019 09:50:49 AM [facility] E78.00 Pure hypercholesterolemia, unspecified P ure hypercholesterolemia, unspecified Diagnosis 05/26/2019 09:50:49 AM [facility] I25.10 Atherosclerotic heart diseas e of [place] coronary artery without angina pectoris Atherosclerotic heart disease of [place] Diagnosis 05/26/2019 09:50:49 AM [facility] I50.32 Chronic diastolic (congestive) heart cherelle lure Chronic diastolic (congestive) heart cherelle Diagnosis 05/26/2019 09:50:49 AM [facility] Surgeries/Procedures Procedure Description Date Indications Data Source(s) 84731 SARS-COV-2 COVID-19 AMP PRB 04/18/2020 12:00:00 AM EST [facility] Results ID Date Data Source [id number] 05/23/2020 09:45:00 AM EST [facility] Name Value Range Interpretation Code Description Data Carine rce(s) Supporting Document(s) SARS coronavirus 2 RNA Not Detected [facility] [place] This lab was ordered by [facility] and reported by [facility]. ID Date Data Source [id number] 05/16/2020 09:30:00 AM EST [facility] Name Value Range Interpretation Code Description Data Carine rce(s) Supporting Document(s) SARS coronavirus 2 RNA Not Detected [facility] [place] This lab was ordered by [facility] and reported by [facility]. ID Date Data Source [id number] 05/09/2020 08:45:00 AM EST [facility] Name Value Range Interpretation Code Description Data Carine rce(s) Supporting Document(s) SARS coronavirus 2 RNA Not Detected [facility] [place] This lab was ordered by [facility] and reported by [facility]. ID Date Data Source [id number] 05/02/2020 10:50:00 AM EST [facility] Name Value Range Interpretation Code Description Data Carine rce(s) Supporting Document(s) SARS coronavirus 2 RNA Not Detected [facility] [place] This lab was ordered by [facility] and reported by [facility]. ID Date Data Source [id number] 04/25/2020 07:30:00 AM EST [facility] Name Value Range Interpretation Code Description Data Carine rce(s) Supporting Document(s) SARS coronavirus 2 RNA Not Detected [facility] [place] This lab was ordered by [facility] and reported by [facility]. ID Date Data Source [id number] 04/18/2020 06:00:00 AM EST [facility] Name Value Range Interpretation Code Description Data Carine rce(s) Supporting Document(s) SARS coronavirus 2 RNA Not Detected [facility] [place] This lab was ordered by [facility] and reported by [facility]. ID Date Data Source [id number] 04/11/2020 12:00:00 PM EST [facility] Name Value Range Interpretation Code Description Data Carine rce(s) Supporting Document(s) SARS coronavirus 2 RNA Not Detected [facility] [place] This lab was ordered by [facility] and reported by [facility]. ID Date Data Source [id number] 04/04/2020 11:00:00 AM EST [facility] Name Value Range Interpretation Code Description Data Carine rce(s) Supporting Document(s) SARS coronavirus 2 RNA [facility] This lab was ordered by [facility] and reported by [facility]. ID Date Data Source [id number] 03/28/2020 10:00:00 AM EST [facility] Name Value Range Interpretation Code Description Data Carine rce(s) Supporting Document(s) SARS coronavirus 2 RNA [facility] This lab was ordered by [facility] and reported by [facility]. ID Date Data Source [id number] 03/21/2020 09:00:00 AM EST [facility] Name Value Range Interpretation Code Description Data Carine rce(s) Supporting Document(s) SARS coronavirus 2 RNA [facility] This lab was ordered by [facility] and reported by [facility]. ID Date Data Source [id number] 03/14/2020 11:00:00 AM EST [facility] Name Value Range Interpretation Code Description Data Carine rce(s) Supporting Document(s) SARS coronavirus 2 RNA [facility] This lab was ordered by [facility] and reported by [facility]. ID Date Data Source [id number] 03/07/2020 10:00:00 AM EST [facility] Name Value Range Interpretation Code Description Data Carine rce(s) Supporting Document(s) SARS coronavirus 2 RNA [facility] This lab was ordered by [facility] and reported by [facility]. ID Date Data Source [id number] 02/29/2020 07:00:00 AM EST [facility] Name Value Range Interpretation Code Description Data Carine rce(s) Supporting Document(s) SARS coronavirus 2 RNA [facility] This lab was ordered by [facility] and reported by [facility]. ID Date Data Source [id number] 02/22/2020 10:30:00 AM EST [facility] Name Value Range Interpretation Code Description Data Carine rce(s) Supporting Document(s) SARS coronavirus 2 RNA [facility] This lab was ordered by [facility] and reported by [facility]. ID Date Data Source [id number] 02/16/2020 01:36:00 PM EST [facility] Name Value Range Interpretation Code Description Data Carine rce(s) Supporting Document(s) SARS coronavirus 2 RNA [facility] This lab was ordered by [facility] and reported by [facility]. ID Date Data Source [id number] 08/16/2019 07:00:00 AM EDT [facility] Name Value Range Interpretation Code Description Data Carine rce(s) Supporting Document(s) SARS CORONAVIRUS 2 RNA [facility] This lab was ordered by [facility] and reported by [facility]. Procedure Vital Signs ID Date Data Source UNK Name Value Range Interpretation Code Description Data Source(s) Body mass index (BMI) [Ratio] 44.7 kg/m2 44.7 k g/m2 [facility] ([facility], ) Body weight 229.00 [lb_av] 229.00 [lb_av] [facility] T ([facility], ) Body height 60 [in_i] 60 [in_i] [facility] 5'0" Respiratory rate 20 /min 20 /min [facility] Heart rate 68 /min 68 /min [facility] ([facility]) Diastolic blood pressure 64 mm[Hg] 64 mm[Hg] [facility] Systolic blood pressure 120 mm[Hg] 120 mm[Hg] [facility] ID Date Data Source [id number] 04/30/2020 07:35:00 AM EST Patrizia seals Name Value Range Interpretation Code Description Data Source(s) Weight (Calculated Kilograms) 103.93 103.93 [facility] Height (Calculated Centimeters) 157.48 157. 48 [facility] Body Mass Index (BMI) 41.[address] Weight (Calculated Kilograms) 103.93 103.93 [facility] Height (Calculated Centimeters) 157.48 157. 48 [facility] Body Mass Index (BMI) 41.9 41.9 [facility] Weight (Calculated Kilograms) 103.93 103.93 [facility] Height (Calculated Centimeters) 157.48 157. 48 [facility] Body Mass Index (BMI) 41.9 41.9 [facility] Weight (Calculated Kilograms) 103.93 103.93 [facility] Height (Calculated Centimeters) 157.48 157. 48 [facility] Body Mass Index (BMI) 41.9 419 [facility]
[2020-06-02] VITALS (8 sets, daily range): BP systolic 121–145; BP diastolic 58–68; O2SAT 97–100
[2020-06-02] MEDS ORDERED: QC A650T3 PO (01:07)
[2020-06-02] MEDS ORDERED: METO50TA7 PO (01:17)
[2020-06-02] MEDS ORDERED: GUAI100L31 PO (01:17)
[2020-06-02] MEDS ORDERED: LEVO137T2 PO (01:17)
[2020-06-02] MEDS ORDERED: JARD1TAB PO (01:20)
[2020-06-02] MEDS ORDERED: INSULANT SC (01:20)
[2020-06-02] MEDS ORDERED: IPRA0.00 NEB (01:37)
[2020-06-02] MEDS ORDERED: HM S0.65 NARES (01:37)
[2020-06-02] MEDS ORDERED: ACET65SU PR (01:37)
[2020-06-02] MEDS ORDERED: ELIQ5TAB PO (01:37)
[2020-06-02] MEDS ORDERED: QUET50TA3 PO (01:37)
[2020-06-02] MEDS ORDERED: COLA100C5 PO (01:37)
[2020-06-02] MEDS ORDERED: HYDR-3713 PO (01:37)
[2020-06-02] MEDS ORDERED: ANOR1AER PO (01:37)
[2020-06-02] MEDS ORDERED: VITA500C24 PO (01:37)
[2020-06-02] MEDS ORDERED: PSYLPOW4 PO (01:37)
[2020-06-02] MEDS ORDERED: FERR1TAB8 PO (01:37)
[2020-06-02] MEDS ORDERED: BIMA01SOL OU (01:37)
[2020-06-02] MEDS ORDERED: VOLT1GEL15 TOP (01:37)
[2020-06-02] MEDS ORDERED: CHLO1.4S2 PO (01:37)
[2020-06-02] MEDS ORDERED: ACET650T15 PO (01:37)
[2020-06-02] MEDS ORDERED: FUROSEMIDE 100MG/10ML VIAL (J1940) IM ONE (01:55)
--- NOTE | 2020-06-02 02:09 | REPVR ---
PROCEDURE INFORMATION: Exam: XR Chest Exam date and time: 06/02/2020 1:49 AM Age: 69 years old Clinical indication: SOB TECHNIQUE: Imaging protocol: XR of the chest Views: 1 view. COMPARISON: [facility] Chest, 1 view 05/23/2020 1:23 PM FINDINGS: Lungs: There is pulmonary vascular congestion. No lung consolidation is noted. Pleural spaces: Unremarkable. No pleural effusion. No pneumothorax. Heart/Mediastinum: The cardiac silhouette is enlarged and similar in size compared to the prior chest x-ray on 05/23/2020. Bones/joints: Unremarkable. IMPRESSION: Cardiomegaly and pulmonary vascular congestion. Electronically signed by: Jared Talbert On 06/02/2020 02:09:21 AM
[2020-06-02] MEDS ORDERED: FUROSEMIDE 100MG/10ML VIAL (J1940) IV ONE (02:10)
[2020-06-02] MEDS ORDERED: METAL LOCK LOOP XX ONE (02:11)
--- OUTSIDE RECORDS SUMMARY | 2020-06-02 02:17 | CCD ---
Author Author [facility] Organization [facility] Address Unknown Phone Unavailable Care Team Providers Care Secretary Administrative Assistant Name Role Phone Tricbrodie J Liseth PA [...] L Mariaelena PA Unavailable Unavailable Abebe, L Maraielena PA Unavailable Unavailable Abebe, L Mariaelena PA [...] is protected by Article 27-F of the [facility] Public Health law. If you continue you may have access to information: Regarding HIV / AIDS; Provided by facilities licensed or operated by the [facility] Office of Mental Health; or Provided by the [facility] Office for People With Developmental Disabilities. If such information is present, then the following [facility] mandated warning applies: This information has been [...] law may result in a fine or halfway sentence or both. A general authorization for the release of medical or other information is NOT sufficient authorization for further disc losure. Family History Family Member Name Family Member Gender Family Member Status Date o f Status Description Data Source(s) Unknown Unknown Problem [facility] ([facility]) mother Unknown Unknown Problem [facility] ([facility]) Encounters Encounter Providers Location Date Indications Data Source(s ) Outpatient Attender: Christian Goetz ED-LABPNP 04/18/2020 09:00:00 AM [place] [id number] Outpatient Attender: Liseth LANDAVERDE [facility] 06/14/2019 10:30:00 AM EDT [facility] ([facility], ) Outpatient Attender: Mariaelena CROW.[email or web address].JEMAL 12:00:00 AM [facility] Insurance Providers Payer name Policy type / Coverage type Policy ID Covered constitution party ID Covered constitution party's relationship to manriquez Policy Manriquez Plan Information AGAPITO [id number] SP [id number] MEDICARE COMPLETE [id number] SP [id number] [facility] [id number] SP [id number] MEDICARE [id number] SP [id number] A [facility] [id number] SP [id number] [facility] MEDICARE [id number] S [id number] MEDICAID [id number] UNITED HEALTH MEDICARE [id number] S [id number] MEDICARE [id number] S [id number] MEDICARE [id number] S [id number] A SELF PAY S MEDICARE [id number] SP [id number] A MEDICAID [id number] SP [id number] [facility] MEDICARE [id number] Dariela [id number] MEDICAID [id number] Dariela [id number] [facility] MCRHMO [id number] SP [id number] MEDICAID [id number] SP [id number] MEDICARE [id number] Dariela [id number] A MEDICARE COMPLETE [id number] SP [id number] Medicaid Medigap Part B [id number] Self [id number] Medicare Solutions Commercial [id number] Self [id number] Medicaid Medigap Part B [id number] Self [id number] Medicare Solutions Commercial [id number] Self [id number] Medicare Part B Medicare Primary [id number] Self [id number] [facility] MCRHMO [id number] SP [id number] [facility] MCRHMO [id number] SP [id number] MEDICARE COMPLETE [id number] SP [id number] [facility] [place] [id number] UNITED [facility] [id number] SP [id number] [place] [id number] Self [id number] [place] Primary [id number] Self [id number] [place] [id number] Self [id number] [place] Medicare Primary [id number] Self [id number] [place] [id number] Self [id number] [place] Primary [id number] Self [id number] Medicaid Medigap Part B [id number] Self [id number] MEDICARE COMPLETE [id number] SP [id number] Medicaid Medigap Part B [id number] Self [id number] MEDICARE COMPLETE [id number] SP [id number] UNITED HEALTHCARE MCRHMO [id number] SP [id number] Medicaid Medigap Part B [id number] Self [id number] Medicaid Medigap Part B [id number] Self [id number] MEDICARE COMPLETE [id number] SP [id number] Medicaid Medigap Part B [id number] Self [id number] Medicare Part B Medicare Primary [id number] Self [id number] Medicaid Medigap Part B [id number] Self [id number] Medicare Part B Medicare Primary [id number] Self [id number] MEDICAID M [id number] S [id number] MEDICARE C [id number] S [id number] A [place] MEDICARE PART B C [id number] S [id number] MEDICARE - [place] MCR [id number] S [id number] Medicaid Medigap Part B [id number] Self [id number] Medicare Part B Medicare Primary [id number] Self [id number] [place] [id number] Self [id number] [place] Primary [id number] Self [id number] MEDICAID [id number] SP [id number] MEDICARE [id number] SP [id number] A MEDICAID [id number] 18 [id number] [place] [id number] 18 [id number] [place] [id number] Self [id number] [place] Medicare Primary [id number] Self [id number] Medicaid Medigap Part B [id number] Self [id number] Medicare Part B Medicare Primary [id number] Self [id number] Medicaid Medigap Part B [id number] Self [id number] Medicare Part B Medicare Primary [id number] Self [id number] Medicaid Medigap Part B [id number] Self [id number] Medicare Part B Medicare Primary [id number] Self [id number] Medicaid Medigap Part B [id number] Self [id number] Medicare Part B Medicare Primary [id number] Self [id number] MEDICAID [id number] SP [id number] Medicare Part B Medicare Primary A&B Self A&B Medicaid Medicaid 1 1 Self 1 1 MEDICAID M [id number] Self [id number] MEDICARE A [id number] Self [id number] A VNA MEDICAID MANAGED I [id number] Self [id number] VNA HOMECARE OPTIONS [id number] SP [id number] [place] Med[place] B [place] Primary Self Medicare Medicare Primary Self VNA HOMECARE OPTIONS [id number] SP [id number] VNA HOMECARE OPTIONS O [id number] S [id number] MEDICAID -PHYSICIAN [id number] 1 [id number] MEDICARE -PHYSICIAN [id number] 18 [id number] MEDICAID -O/P [id number] MEDICARE -O/P [id number] A Problems, Conditions, and Diagnoses Code Display Name Description Problem Type Effective Dates Data Source(s) Z53.29 Procedure and treatment not carried out because of patient's decision for other reasons PROC/TRTMT NOT CRD OUT BEC PT DECISION FOR OTH REASONS Diagn osis 04/18/2020 09:00:00 AM [facility] Z11.52 ENCOUNTER FOR SCREENING FOR COVID-19 ENC OUNTER FOR SCREENING FOR COVID-19 Diagnosis 04/18/2020 09:00:00 AM [facility] 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 Diagnosis 05/26/2019 09:50:49 AM [facility] E11.65 Type 2 diabetes mellitus with hyperglyce peri Type 2 diabetes mellitus with hyperglyce Diagnosis 05/26/2019 09:50:49 AM [facility] G47.33 Obstructive sleep apnea (adult) (pediatr ic) Obstructive sleep apnea (adult) (pediatr Diagnosis 05/26/2019 09:50:49 AM [facility] I63.9 Cerebral infarction, unspecified Cerebral infarc tion, unspecified Diagnosis 05/26/2019 09:50:49 AM [facility] D64.9 Anemia, unspecified Anemia, unspecified Diagnosis 0 05/26/2019 09:50:49 AM [facility] E78.00 Pure hypercholesterolemia, unspecified P ure hypercholesterolemia, unspecified Diagnosis 05/26/2019 09:50:49 AM [facility] I25.10 Atherosclerotic heart diseas e of [place] coronary artery without angina pectoris Atherosclerotic heart disease of [place] Diagnosis 05/26/2019 09:50:49 AM [facility] I50.32 Chronic diastolic (congestive) heart cherelle lure Chronic diastolic (congestive) heart cherelle Diagnosis 05/26/2019 09:50:49 AM [facility] Surgeries/Procedures Procedure Description Date Indications Data Source(s) 09051 SARS-COV-2 COVID-19 AMP PRB 04/18/2020 12:00:00 AM EST [facility] Results ID Date Data Source [id number] 05/23/2020 09:45:00 AM EST [facility] Name Value Range Interpretation Code Description Data Carine rce(s) Supporting Document(s) SARS coronavirus 2 RNA Not Detected [facility] [place] This lab was ordered by [facility] and reported by [facility]. ID Date Data Source [id number] 05/16/2020 09:30:00 AM EST [facility] Name Value Range Interpretation Code Description Data Carine rce(s) Supporting Document(s) SARS coronavirus 2 RNA Not Detected [facility] [place] This lab was ordered by [facility] and reported by [facility]. ID Date Data Source [id number] 05/09/2020 08:45:00 AM EST [facility] Name Value Range Interpretation Code Description Data Carine rce(s) Supporting Document(s) SARS coronavirus 2 RNA Not Detected [facility] [place] This lab was ordered by [facility] and reported by [facility]. ID Date Data Source [id number] 05/02/2020 10:50:00 AM EST [facility] Name Value Range Interpretation Code Description Data Carine rce(s) Supporting Document(s) SARS coronavirus 2 RNA Not Detected [facility] [place] This lab was ordered by [facility] and reported by [facility]. ID Date Data Source [id number] 04/25/2020 07:30:00 AM EST [facility] Name Value Range Interpretation Code Description Data Carine rce(s) Supporting Document(s) SARS coronavirus 2 RNA Not Detected [facility] [place] This lab was ordered by [facility] and reported by [facility]. ID Date Data Source [id number] 04/18/2020 06:00:00 AM EST [facility] Name Value Range Interpretation Code Description Data Carine rce(s) Supporting Document(s) SARS coronavirus 2 RNA Not Detected [facility] [place] This lab was ordered by [facility] and reported by [facility]. ID Date Data Source [id number] 04/11/2020 12:00:00 PM EST [facility] Name Value Range Interpretation Code Description Data Carine rce(s) Supporting Document(s) SARS coronavirus 2 RNA Not Detected [facility] [place] This lab was ordered by [facility] and reported by [facility]. ID Date Data Source [id number] 04/04/2020 11:00:00 AM EST [facility] Name Value Range Interpretation Code Description Data Carine rce(s) Supporting Document(s) SARS coronavirus 2 RNA [facility] This lab was ordered by [facility] and reported by [facility]. ID Date Data Source [id number] 03/28/2020 10:00:00 AM EST [facility] Name Value Range Interpretation Code Description Data Carine rce(s) Supporting Document(s) SARS coronavirus 2 RNA [facility] This lab was ordered by [facility] and reported by [facility]. ID Date Data Source [id number] 03/21/2020 09:00:00 AM EST [facility] Name Value Range Interpretation Code Description Data Carine rce(s) Supporting Document(s) SARS coronavirus 2 RNA [facility] This lab was ordered by [facility] and reported by [facility]. ID Date Data Source [id number] 03/14/2020 11:00:00 AM EST [facility] Name Value Range Interpretation Code Description Data Carine rce(s) Supporting Document(s) SARS coronavirus 2 RNA [facility] This lab was ordered by [facility] and reported by [facility]. ID Date Data Source [id number] 03/07/2020 10:00:00 AM EST [facility] Name Value Range Interpretation Code Description Data Carine rce(s) Supporting Document(s) SARS coronavirus 2 RNA [facility] This lab was ordered by [facility] and reported by [facility]. ID Date Data Source [id number] 02/29/2020 07:00:00 AM EST [facility] Name Value Range Interpretation Code Description Data Carine rce(s) Supporting Document(s) SARS coronavirus 2 RNA [facility] This lab was ordered by [facility] and reported by [facility]. ID Date Data Source [id number] 02/22/2020 10:30:00 AM EST [facility] Name Value Range Interpretation Code Description Data Carine rce(s) Supporting Document(s) SARS coronavirus 2 RNA [facility] This lab was ordered by [facility] and reported by [facility]. ID Date Data Source [id number] 02/16/2020 01:36:00 PM EST [facility] Name Value Range Interpretation Code Description Data Carine rce(s) Supporting Document(s) SARS coronavirus 2 RNA [facility] This lab was ordered by [facility] and reported by [facility]. ID Date Data Source [id number] 08/16/2019 07:00:00 AM EDT [facility] Name Value Range Interpretation Code Description Data Carine rce(s) Supporting Document(s) SARS CORONAVIRUS 2 RNA [facility] This lab was ordered by [facility] and reported by [facility]. Procedure Vital Signs ID Date Data Source UNK Name Value Range Interpretation Code Description Data Source(s) Body mass index (BMI) [Ratio] 44.7 kg/m2 44.7 k g/m2 [facility] ([facility], ) Body weight 229.00 [lb_av] 229.00 [lb_av] [facility] T ([facility], ) Body height 60 [in_i] 60 [in_i] [facility] 5'0" Respiratory rate 20 /min 20 /min [facility] Heart rate 68 /min 68 /min [facility] ([facility]) Diastolic blood pressure 64 mm[Hg] 64 mm[Hg] [facility]) Systolic blood pressure 120 mm[Hg] 120 mm[Hg] [facility] ID Date Data Source [id number] 04/30/2020 07:35:00 AM EST Patrizia seals Name Value Range Interpretation Code Description Data Source(s) Weight (Calculated Kilograms) 103.93 103.93 [facility] Height (Calculated Centimeters) 157.48 157. 48 [facility] Body Mass Index (BMI) 41.[address] Weight (Calculated Kilograms) 103.93 103.93 [facility] Height (Calculated Centimeters) 157.48 157. 48 [facility] Body Mass Index (BMI) 41.9 41.9 [facility] Weight (Calculated Kilograms) 103.93 103.93 [facility] Height (Calculated Centimeters) 157.48 157. 48 [facility] Body Mass Index (BMI) 41.9 41.9 [facility] Weight (Calculated Kilograms) 103.93 103.93 [facility] Height (Calculated Centimeters) 157.48 157. 48 [facility] Body Mass Index (BMI) 41.9 419 [facility]
[2020-06-02 03:05] LABS: BASO % 0.5 % (0.0-1.0); EOS # 0.3 10^3/uL (0.0-0.5); HEMATOCRIT 26.3 % (36.0-47.0); HEMOGLOBIN 7.4 g/dl (12.0-15.5); LYMPH % 13.1 % (24.0-44.0); MEAN CORPUSCULAR HEMOGLOBIN 27.6 pg (27.0-33.0); MEAN CORPUSCULAR HGB CONC 28.1 g/dl (32.0-36.5); MEAN CORPUSCULAR VOLUME 98.1 fl (80.0-96.0); MONO # 1.9 10^3/uL (0.0-0.8); MONO % 23.7 % (2.0-8.0); NEUTROPHILS # 4.6 10^3/uL (1.5-8.5); NEUTROPHILS % 57.4 % (36.0-66.0); PLATELET COUNT, AUTOMATED 308 10^3/uL (150-450); RED BLOOD COUNT 2.68 10^6/uL (4.00-5.40)
[2020-06-02 03:07] LABS: WHITE BLOOD COUNT 7.9 10^3/uL (4.0-10.0)
[2020-06-02 03:45] LABS: BLOOD UREA NITROGEN 67 MG/DL (7-18); CALCIUM LEVEL 7.8 MG/DL (8.8-10.2); CARBON DIOXIDE LEVEL 27 MEQ/L (21-32); CHLORIDE LEVEL 110 MEQ/L (98-107); CK-MB VALUE MASS 3.3 NG/ML (<3.6); CPK CREATINE PHOSPHOKINASE 165 U/L (26-192); CREATININE FOR GFR 1.53 MG/DL (0.55-1.30); GLOMERULAR FILTRATION RATE 43.5 (>45); GLUCOSE, FASTING 147 MG/DL (70-100); NT-PRO BNP 13325 PG/ML (<125); SODIUM LEVEL 140 MEQ/L (136-145); TROPONIN I < 0.02 NG/ML (< 0.10)
[2020-06-02] MEDS ORDERED: SOD POLYSTYRENE SULFONATE SUSP 15 GM/60 ML UD PO ONE (04:15)
[2020-06-02] MEDS ORDERED: FLEET ENEMA PR PRN (04:55)
[2020-06-02] MEDS ORDERED: BISACODYL 10 MG SUPP PR PRN (04:55)
[2020-06-02] MEDS ORDERED: MOM 30ML SUSPENSION UDC PO PRN (04:55)
[2020-06-02] MEDS ORDERED: CHLORASEPTIC SPRAY PO PRN (04:55)
[2020-06-02] MEDS ORDERED: IPRATROPIUM 0.5MG/ALBUTEROL 2.5MG INH SOL UD 3ML (DUONEB) NEB PRN (04:55)
[2020-06-02] MEDS ORDERED: GLUCOSE 4GM CHEW TABLET PO PRN (05:05)
[2020-06-02] MEDS ORDERED: GLUCAGON INJ 1MG VIAL SC PRN (05:05)
[2020-06-02] MEDS ORDERED: DEXTROSE 50% 50 ML SYRINGE IV PRN (05:05)
--- NOTE | 2020-06-02 05:15 | HPEPDOC ---
[facility] Medical History & Physical Date of Admission Jun 02, 2020 Date of Service: Jun 02, 2020 Primary Care Physician: Юлия Vicente DO Attending Physician: RADHA VANCE MD History and Physical CHIEF COMPLAINT: Worsening SOB HISTORY OF PRESENT ILLNESS: Patient is a 69-year-old black female who presents to the emergency department via EMS transport from the [facility]. Per report, patient has been increasingly more short of breath over the last 23 days. This evening, nurses noted that the patient had bilateral crackles and thus she was sent over to the emergency department for further evaluation and management. Patient does carry a comp located medical history that includes biventricular heart failure with pulmonary hypertension, IDDM, CAD, ANGELINA, anemia of CD, obesity and history of breast cancer and stroke. Upon review of patient's [facility] records, it appears that she has been struggling with fluid retention for at least the last couple of months. PAST MEDICAL HISTORY: CVA in 2008, which left her with mild left-sided weakness HTN COPD IDDM type II, with diabetic neuropathy and retinopathy Coronary artery disease Pulmonary sarcoidosis biventricular heart failure Hyperlipidemia ANGELINA/pickwickian, noncompliance with CPAP, O2 at night Anemia of chronic disease Diverticulosis Unclear history of seizures, no recent episodes, has been off Dilantin Breast cancer with mastectomy in 2013 Glaucoma PAST SURGICAL HISTORY: Hysterectomy (date unknown) Left breast biopsy in August of 2013 Left breast mastectomy in November of 2013. Right-sided [id number] placed in August of 2017, due to poor venous access, removed in 2019 SOCIAL HISTORY: Resides in: Resident of [facility] since 2017 Employment: Retired, disabled Tobacco use: Denies history of nicotine use ETOH: Denies ETOH use Illicit drug use: Denies ilicit drug use Other relevant social factors: Utilizes a wheelchair for ambulation FAMILY HISTORY: Noncontributory ALLERGIES: Please see below. REVIEW OF SYSTEMS: Review of systems limited due to patient's level of arousal CONSTITUTIONAL: Patient reports chronic generalized fatigue and malaise, denies any recent fevers or chills HEENT: Denies any headaches, reports baseline difficulty with her vision, reportedly seeing the eye doctor next week CARDIOVASCULAR: Denies any chest pain, pressure or discomfort, no palpitations or appropriate tachycardia RESPIRATORY: Reports a 2-3 day history of worsening shortness of breath above baseline, also reporting a dry cough. Denies wheezing. GASTROINTESTINAL: No nausea or vomiting, no bellyaches or belly pains, he does report that she often struggles with constipation, denies any melena or hematoc hezia : Reports less-frequent urination over the last week, denies dysuria or hematuria SKIN: No new skin rashes or skin lesions, no bruising MUSCULOSKELETAL: Denies any muscle or joint aches or pains NEUROLOGICAL: Warts baseline forgetfulness PSYCHIATRIC: Reports underlying depression, denies anxiety HOME MEDICATIONS: Please see below. PHYSICAL EXAMINATION: VITAL SIGNS: Please see below. General: This was interviewed and examined in the emergency department, she was found to be resting in bed comfortably, easily awoken. She does not appear to be an accurate historian regards to her medical care. HEENT: Normocephalic, atraumatic, EOMI sclera nonicteric, mucous membranes are moist Neck: Unable to be examined secondary to body habitus, cannot comment on JVD Heart: Bradycardic in the mid to low 50s, irregular rate, grade 2 murmur appreciated Lungs: Bibasilar crackles throughout the posterior and lateral lung holliday bilaterally, fair air movement, no appreciable wheezing or rhonchi, no conversational dyspnea. Exam extremely limited secondary to patient's body habitus. Extremities: 2+ pitting edema in the lower extremities bilaterally, 1+ posterior tibial pulses, 2+ radial pulses bilaterally Abdomen: Very Obese, nontender, unable to palpate any masses or auscultate Neuro: Oriented to person, place, she struggled with date and time. Able to move all extremities against resistance, barely noticeable left-sided weakness to the right LABORATORY DATA: See below. IMAGING: Chest XR (06/02/20): Cardiomegaly and pulmonary vascular congestion. MICROBIOLOGY: N/A ASSESSMENT: 69-year-old black female presenting to the clinic from [facility] after 23 days of worsening shortness of breath and crackles upon examination. In the emergency department, patient was found to be fluid overloaded and hypokalemic, these were treated with IV Lasix 80 mg and Kayexalate. Patient was admitted to the hospital for ongoing diuresis and management of her electrolyte disturbance. PLAN: #Biventricular heart failure (R>L), acute on chronic -Echocardiogram performed 06/22 showed a left ventricular ejection fraction of 60-65% with mild mitral regurgitation, moderate tricuspid regurgitation and a trace of pulmonary regurgitation. Plan to repeat this admission. -BB, Torsemide 20 mg daily, I imagine patient was on spironolactone, though this was probably held 2/2 to her hyperkalemia. -Will hold PO diuretic, patient has predominantly right-sided heart failure and masses preload dependent, caution to avoid over diuresis -Lasix 40 mg IV BID, close monitoring of I/O, daily weights, fluid restriction #Hyperkalemia -Potassium of 6.0. This appears to be an ongoing problem throughout 05/27. No EKG changes. -Potassium of 6.5 on 05/22/20, decreased to 5.3 and 5.5 on 05/24 and 06/01 respectively. -S/P Kayexalate in ED -Repeat AM labs #Acute on chronic kidney injury -BUN/Cr of /1.53, Cr improved from 05/28 and 06/01 of 1.56 and 1.40 respectively -Baseline Cr of 1.1 -Most weinberg 2/2 to outpatient diuresis -Continue to monitor closely #COPD with hypoxemia and hypercapnic respiratory failure, - Symbacort in lieu of Anoro, Nebs PRN - Oxygen titration #IDDM, type II -A1c of 8.3 on 05/24/20 -Levemir 25 units -Sliding scale #Anemia of chronic disease. -Patient has an upper and lower endoscopy scheduled as an outpatient -H/H of 7.4/26.3, type and screen, baseline appears to be about 8, consider transfusion -Fe, transferrin, TIBC, ferritin of 24, 248, 139 and 139. -C/w Iron supplementation #Atrial fibrilation, slow ventricular rate -Recent reduction in metoprolol dose 2/2 to bradycardia, 50mg BID, hold parameters place -Eliquis #Obstructive sleep apnea. -Patient wears CPAP nightly and has been noncompliant -Nighttime oxygen as mentioned above #History of CVA -Prior history of basal ganglia stroke -Minimal left-sided weakness. -Full-dose ASA and stain #Gastroesophageal reflux disease -PPI #Glaucoma -Follows outpatient with OD -c/w eye drops #Hypothyroid -c/w levothyroxine # Morbid obesity -Complicating care #Osteoporosis -Prolia #Chronic pain -Limiting pain medication at [facility] -Will continue home dose, do not increase pain medications -Extensive bowel regimen CODE STATUS: Full code DVT PROPHYLAXIS: Eliquis DISPO: Anticipate >2 night stay Vital Signs Vital Signs Date Time Temp Pulse Resp B/P (MAP) Pulse Ox O2 Delivery O2 Flow Rate FiO2 06/02/20 02:30 48 19 143/65 (91) 100 Nasal Cannula 2.0 06/01/20 23:58 98.2 Laboratory Data Labs 24H Laboratory Tests 2 06/02/20 02:54: Immature Granulocyte % (Auto) 1.3, Neutrophils (%) (Auto) 57.4, Lymphocytes (%) (Auto) 13.1L, Monocytes (%) (Auto) 23.7H, Eosinophils (%) (Auto) 4.0H, Basophils (%) (Auto) 0.5, Neutrophils # (Auto) 4.6, Lymphocytes # (Auto) 1.0L, Monocytes # (Auto) 1.9H, Eosinophils # (Auto) 0.3, Basophils # (Auto) 0.0, Nucleated Red Blood Cells % (auto) 0.3H, Anion Gap 3L, Glomerular Filtration Rate 43.5L, Calcium Level 7.8L, Total Creatine Kinase 165, Creatine Kinase MB 3.3, Creatine Kinase MB Relative Index 2.00, Troponin I < 0.02, CB-Wwb-C-Type Natriuretic Peptide 62612X CBC/BMP Laboratory Tests 06/02/20 02:54 Home Medications Scheduled Acetaminophen (Acetaminophen 8 Hour) 650 Mg Tablet.er, 650 MG PO BID Apixaban (Eliquis) 5 Mg Tablet, 5 MG PO BID Ascorbic Acid (Vitamin C) 500 Mg Capsule, 500 MG PO DAILY Aspirin (Aspirin) 325 Mg Tab, 325 MG PO DAILY Bimatoprost (Lumigan) 0.01% 2.5ML Drops, 1 DROP OU DAILY Brimonidine Tartrate (Brimonidine Tartrate) 100 Drop/5 Ml Soln, 1 DROP OU BID 1400 AND 2100 Diclofenac Sodium (Voltaren) 100 Gm Gel..gram., 1 APPLIC TOP BID knees wrists neck and shoulders Docusate Sodium (Colace) 100 Mg Capsule, 100 MG PO DAILY Empagliflozin (Jardiance) 10 Mg Tablet, 10 MG PO DAILY Ferrous Sulfate (Ferrous Sulfate) 325 Mg Tablet, 325 MG PO DAILY Insulin Glargine (Lantus) 100 Unit/1 Ml Vial, 55 UNITS SC QHS Insulin Human Lispro (Humalog) 1 Units/0.01 Ml Inj, 1 DOSE SC BID PER SLIDING SCALE 0730/1700 Levothyroxine Sodium (Levothyroxine Sodium) 137 Mcg Tablet, 137 MCG PO QAM Metoprolol Tartrate (Metoprolol Tartrate) 50 Mg Tablet, 50 MG PO BID Multivitamins (Thera M Plus Tablet) 1 Tab Tab, 1 TAB PO DAILY Polyethylene Glycol 3350 (Miralax) 1 Pow Pow, 17 GM PO DAILY Psyllium Husk (Psyllium Husk) 1 Gm Powder, 1 DOSE PO QHS Quetiapine Fumarate (Quetiapine Fumarate) 50 Mg Tablet, 50 MG PO DAILY Rosuvastatin Calcium (Rosuvastatin Calcium) 20 Mg Tab, 20 MG PO QHS Sennosides (Senokot) 8.6 Mg Tablet, 1 TAB PO DAILY Sodium Chloride (Saline Nasal [place]) 44 Ml [place], 2 SPRAY NARES QHS Torsemide (Torsemide) 20 Mg Tablet, 20 MG PO DAILY Umeclidinium Brm/Vilanterol Tr (Anoro Ellipta 62.5-25 Mcg INH) 1 Each Blst.w.dev, 1 PUFF PO DAILY Scheduled PRN Acetaminophen (Acetaminophen) 650 Mg Supp.rect, 650 MG RI Q4H PRN for PAIN / FEVER Acetaminophen (Acetaminophen ER) 650 Mg Tablet.er, 650 MG PO Q8H PRN for PAIN Bisacodyl (Bisacodyl) 10 Mg Sup, 10 MG RI DAILY PRN for CONSTIPATION Glucagon,Human Recombinant (Glucagon Emergency Kit) 1 Mg Kit, 1 MG IM ASDIRECTED PRN for LOW BLOOD SUGAR Hydrocodone/Acetaminophen (Hydrocodone-Acetamin 5-325 mg) 1 Each Tablet, 1 TAB PO BID PRN for PAIN Ipratropium/Albuterol Sulfate (Iprat-Albut 0.5-3(2.5) mg/3 ml) 3 Ml Ampul.neb, 1 VIAL NEB Q6H PRN for chest pain Milk Of Magnesia (Milk of Magnesia) 2,400 Mg/10 Ml Oral.susp, 10 ML PO DAILY PRN for CONSTIPATION Phenol (Chloraseptic) 20 Ml [place], 1 SPRAY PO Q4H PRN for SORE THROAT Sodium Phosphate,[place]rara-Dibasic (Enema Ready To Use) 1 Laurie Laurie, 1 LAURIE RI DAILY PRN for CONSTIPATION guaiFENesin (Cough Syrup) 100 Mg/5 Ml Liquid, 5 ML PO Q4H PRN for COUGH Allergies Coded Allergies: Sulfa (Sulfonamide Antibiotics) (Verified Allergy, Unknown, 06/30/18) atorvastatin (Verified Allergy, Unknown, 06/30/18) baclofen (Verified Allergy, Unknown, 06/30/18) clindamycin (Verified Allergy, Unknown, 06/30/18) duloxetine (Verified Allergy, Unknown, 06/30/18) levetiracetam (Verified Allergy, Unknown, 06/30/18) lisinopril (Verified Allergy, Unknown, 06/30/18) topiramate (Verified Allergy, Unknown, 06/30/18) tramadol (Verified Allergy, Unknown, 06/30/18) A-FIB/CHADSVASC A-FIB History Current/History of A-Fib/PAF?: Yes Current PO Anticoag Therapy: Yes GME ATTESTATION GME ATTESTATION My faculty preceptor for this patient encounter was physically present during the encounter and was fully available. All aspects of the patient interview, examination, medical decision making process, and medical care plan development were reviewed and approved by the faculty preceptor. The faculty preceptor is aware and concurs with the plan as stated in the body of this note and will attest to such by his/her cosignature. ATTENDING NOTE time of service 640am is a 69 yr old F w a hx of ANGELINA, COPD, IDDM w multiple complication, Pulm HT, CVA Sarcodosis, Hypothyrodism and class 3 obesity who presented w c/o dyspnea and will be admitted for fluid overload, hyperkalemia and anemia. Plan: lasix, f/u Echo and repeat K rest per 's H&P JERED SIGALA DO Jun 02, 2020 05:15 RADHA VANCE MD Jun 02, 2020 06:54
--- OUTSIDE RECORDS SUMMARY | 2020-06-02 05:29 | CCD ---
Author Author [facility] Organization [facility] Address Unknown Phone Unavailable Care Team Providers Care Founder Name Role Phone Tricbrodie J Liseth PA [...] Unavailable Abebe, L Mariaelena PA Unavailable Unavailable Aebbe, L Mariaelena PA Unavailable Unavailable Abebe, Suresh [...] is protected by Article 27-F of the [facility] Public Health law. If you continue you may have access to information: Regarding HIV / AIDS; Provided by facilities licensed or operated by the [facility] Office of Mental Health; or Provided by the [facility] Office for People With Developmental Disabilities. If such information is present, then the following [facility] mandated warning applies: This information has been [...] law may result in a fine or retirement sentence or both. A general authorization for the release of medical or other information is NOT sufficient authorization for further disc losure. Family History Family Member Name Family Member Gender Family Member Status Date o f Status Description Data Source(s) Unknown Unknown Problem [facility] ([facility]) mother Unknown Unknown Problem [facility] ([facility]) Encounters Encounter Providers Location Date Indications Data Source(s ) Outpatient Attender: Christian Goetz ED-LABPNP 04/18/2020 09:00:00 AM [place] [address] [facility] Outpatient Attender: Liseth LANDAVERDE [facility] 06/14/2019 10:30:00 AM EDT [facility] ([facility], ) Outpatient Attender: Mariaelena CROW.[email or web address]-[email or web address] 12:00:00 AM [facility] Insurance Providers Payer name Policy type / Coverage type Policy ID Covered constitution party ID Covered constitution party's relationship to manriquez Policy Manriquez Plan Information AGAPITO [id number] SP [id number] MEDICARE COMPLETE [id number] SP [id number] [facility] [id number] SP [id number] MEDICARE [id number] SP [id number] A [facility] [id number] SP [id number] [facility] [id number] S [id number] MEDICAID [id number] S [id number] UNITED HEALTH MEDICARE [id number] S [id number] MEDICARE [id number] S [id number] MEDICARE [id number] S [id number] A SELF PAY S MEDICARE [id number] SP [id number] A MEDICAID [id number] SP [id number] [facility] MED[facility]ARE [id number] Dariela [id number] MEDICAID [id number] Dariela [id number] UNITED [facility] MCRHMO [id number] SP [id number] MEDICAID [id number] SP [id number] MEDICARE [id number] Dariela [id number] A MEDICARE COMPLETE [id number] SP [id number] Medicaid Medigap Part B [id number] Self [id number] Medicare Solutions Commercial [id number] Self [id number] Medicaid Medigap Part B [id number] Self [id number] Medicare Solutions Commercial [id number] Self [id number] Medicare Part B Medicare Primary [id number] Self [id number] UNITED [facility] MCRHMO [id number] SP [id number] UNITED [facility] MCRHMO [id number] SP [id number] MEDICARE COMPLETE [id number] SP [id number] UNITED [facility] [place] [id number] [facility] [id number] SP [id number] [place] [id number] Self [id number] [place] Primary [id number] Self [id number] [place] [id number] Self [id number] [place] Medicare Primary [id number] Self [id number] [place] [id number] Self [id number] [place] Medicare Primary [id number] Self [id number] Medicaid Medigap Part B [id number] Self [id number] MEDICARE COMPLETE [id number] SP [id number] Medicaid Medigap Part B [id number] Self [id number] MEDICARE COMPLETE [id number] SP [id number] UNITED HEALTHCARE MCRHMO [id number] SP [id number] Medicaid Medigap Part B [id number] Self [id number] Medicaid Medigap Part B [id number] Self [id number] MEDICARE COMPLETE [id number] SP [id number] Medicaid Medigap Part B [id number] Self [id number] Medicare Part B Medicare Primary [id number] Self [id number] Medicaid Medigap Part B [id number] Self [id number] Medicare Part B Medicare Primary [id number] Self [id number] MEDICAID M [id number] S [id number] MEDICARE C [id number] S [id number] A [place] MEDICARE PART B C [id number] S [id number] MEDICARE - [place] MCR [id number] S [id number] Medicaid Medigap Part B [id number] Self [id number] Medicare Part B Medicare Primary [id number] Self [id number] [place] [id number] Self [id number] [place] Medicare Primary [id number] Self [id number] MEDICAID [id number] SP [id number] MEDICARE [id number] SP [id number] A MEDICAID [id number] [place]ARE [place] [id number] 18 [id number] [place] [id number] Self [id number] [place] Medicare Primary [id number] Self [id number] Medicaid Medigap Part B [id number] Self [id number] Medicare Part B Medicare Primary [id number] Self [id number] Medicaid Medigap Part B [id number] Self [id number] Medicare Part B Medicare Primary [id number] Self [id number] Medicaid Medigap Part B [id number] Self [id number] Medicare Part B Medicare Primary [id number] Self [id number] Medicaid Medigap Part B [id number] Self [id number] Medicare Part B Medicare Primary [id number] Self [id number] MEDICAID [id number] SP [id number] Medicare Part B Medicare Primary A&B Self A&B Medicaid Medicaid 1 1 Self 1 1 MEDICAID M [id number] Self [id number] MEDICARE A [id number] Self [id number] A VNA MEDICAID MANAGED I [id number] Self [id number] VNA HOMECARE OPTIONS [id number] SP [id number] [place] Med[place] Primary Self Medicare Medicare Primary Self VNA HOMECARE OPTIONS [id number] SP [id number] VNA HOMECARE OPTIONS O [id number] S [id number] MEDICAID -PHYSICIAN [id number] 1 [id number] MEDICARE -PHYSICIAN [id number] 18 [id number] MEDICAID -O/P [id number] MEDICARE -O/P [id number] A Problems, Conditions, and Diagnoses Code Display Name Description Problem Type Effective Dates Data Source(s) Z53.29 Procedure and treatment not carried out because of patient's decision for other reasons PROC/TRTMT NOT CRD OUT BEC PT DECISION FOR OTH REASONS Diagn osis 04/18/2020 09:00:00 AM [facility] Z11.52 ENCOUNTER FOR SCREENING FOR COVID-19 ENC OUNTER FOR SCREENING FOR COVID-19 Diagnosis 04/18/2020 09:00:00 AM [facility] 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) use of insulin Diagnosis 05/26/2019 09:50:49 AM [facility] E11.65 Type 2 diabetes mellitus with hyperglyce peri Type 2 diabetes mellitus with hyperglyce Diagnosis 05/26/2019 09:50:49 AM [facility] G47.33 Obstructive sleep apnea (adult) (pediatr ic) Obstructive sleep apnea (adult) (pediatr Diagnosis 05/26/2019 09:50:49 AM [facility] I63.9 Cerebral infarction, unspecified Cerebral infarc tion, unspecified Diagnosis 05/26/2019 09:50:49 AM [facility] D64.9 Anemia, unspecified Anemia, unspecified Diagnosis 0 05/26/2019 09:50:49 AM [facility] E78.00 Pure hypercholesterolemia, unspecified P ure hypercholesterolemia, unspecified Diagnosis 05/26/2019 09:50:49 AM [facility] I25.10 Atherosclerotic heart diseas e of [place] coronary artery without angina pectoris Atherosclerotic heart disease of [place] Diagnosis 05/26/2019 09:50:49 AM [facility] I50.32 Chronic diastolic (congestive) heart cherelle lure Chronic diastolic (congestive) heart cherelle Diagnosis 05/26/2019 09:50:49 AM [facility] Surgeries/Procedures Procedure Description Date Indications Data Source(s) 14332 SARS-COV-2 COVID-19 AMP PRB 04/18/2020 12:00:00 AM EST [facility] Results ID Date Data Source [id number] 05/23/2020 09:45:00 AM EST [facility] Name Value Range Interpretation Code Description Data Carine rce(s) Supporting Document(s) SARS coronavirus 2 RNA Not Detected [facility] This lab was ordered by [facility] and reported by [facility]. ID Date Data Source [id number] 05/16/2020 09:30:00 AM EST [facility] Name Value Range Interpretation Code Description Data Carine rce(s) Supporting Document(s) SARS coronavirus 2 RNA Not Detected [facility] [place] This lab was ordered by [facility] and reported by [facility]. ID Date Data Source [id number] 05/09/2020 08:45:00 AM EST [facility] Name Value Range Interpretation Code Description Data Carine rce(s) Supporting Document(s) SARS coronavirus 2 RNA Not Detected [facility] [place] This lab was ordered by [facility] and reported by [facility]. ID Date Data Source [id number] 05/02/2020 10:50:00 AM EST [facility] Name Value Range Interpretation Code Description Data Carine rce(s) Supporting Document(s) SARS coronavirus 2 RNA Not Detected [facility] [place] This lab was ordered by [facility] and reported by [facility]. ID Date Data Source [id number] 04/25/2020 07:30:00 AM EST [facility] Name Value Range Interpretation Code Description Data Carine rce(s) Supporting Document(s) SARS coronavirus 2 RNA Not Detected [facility] [place] This lab was ordered by [facility] and reported by [facility]. ID Date Data Source [id number] 04/18/2020 06:00:00 AM EST [facility] Name Value Range Interpretation Code Description Data Carine rce(s) Supporting Document(s) SARS coronavirus 2 RNA Not Detected [facility] [place] This lab was ordered by [facility] and reported by [facility]. ID Date Data Source [id number] 04/11/2020 12:00:00 PM EST [facility] Name Value Range Interpretation Code Description Data Carine rce(s) Supporting Document(s) SARS coronavirus 2 RNA Not Detected [facility] [place] This lab was ordered by [facility] and reported by [facility]. ID Date Data Source [id number] 04/04/2020 11:00:00 AM EST [facility] Name Value Range Interpretation Code Description Data Carine rce(s) Supporting Document(s) SARS coronavirus 2 RNA [facility] This lab was ordered by [facility] and reported by [facility]. ID Date Data Source [id number] 03/28/2020 10:00:00 AM EST [facility] Name Value Range Interpretation Code Description Data Carine rce(s) Supporting Document(s) SARS coronavirus 2 RNA [facility] This lab was ordered by [facility] and reported by [facility]. ID Date Data Source [id number] 03/21/2020 09:00:00 AM EST [facility] Name Value Range Interpretation Code Description Data Carine rce(s) Supporting Document(s) SARS coronavirus 2 RNA [facility] This lab was ordered by [facility] and reported by [facility]. ID Date Data Source [id number] 03/14/2020 11:00:00 AM EST [facility] Name Value Range Interpretation Code Description Data Carine rce(s) Supporting Document(s) SARS coronavirus 2 RNA [facility] This lab was ordered by [facility] and reported by [facility]. ID Date Data Source [id number] 03/07/2020 10:00:00 AM EST [facility] Name Value Range Interpretation Code Description Data Carine rce(s) Supporting Document(s) SARS coronavirus 2 RNA [facility] This lab was ordered by [facility] and reported by [facility]. ID Date Data Source [id number] 02/29/2020 07:00:00 AM EST [facility] Name Value Range Interpretation Code Description Data Carine rce(s) Supporting Document(s) SARS coronavirus 2 RNA [facility] This lab was ordered by [facility] and reported by [facility]. ID Date Data Source [id number] 02/22/2020 10:30:00 AM EST [facility] Name Value Range Interpretation Code Description Data Carine rce(s) Supporting Document(s) SARS coronavirus 2 RNA [facility] This lab was ordered by [facility] and reported by [facility]. ID Date Data Source [id number] 02/16/2020 01:36:00 PM EST [facility] Name Value Range Interpretation Code Description Data Carine rce(s) Supporting Document(s) SARS coronavirus 2 RNA [facility] This lab was ordered by [facility] and reported by [facility]. ID Date Data Source [id number] 08/16/2019 07:00:00 AM EDT [facility] Name Value Range Interpretation Code Description Data Carine rce(s) Supporting Document(s) SARS CORONAVIRUS 2 RNA [facility] This lab was ordered by [facility] and reported by [facility]. Procedure Vital Signs ID Date Data Source UNK Name Value Range Interpretation Code Description Data Source(s) Body mass index (BMI) [Ratio] 44.7 kg/m2 44.7 k g/m2 [facility] ([facility], ) Body weight 229.00 [lb_av] 229.00 [lb_av] [facility] T ([facility], ) Body height 60 [in_i] 60 [in_i] [facility] 5'0" Respiratory rate 20 /min 20 /min [facility] Heart rate 68 /min 68 /min [facility] ([facility]) Diastolic blood pressure 64 mm[Hg] 64 mm[Hg] [facility] Systolic blood pressure 120 mm[Hg] 120 mm[Hg] [facility] ID Date Data Source [id number] 04/30/2020 07:35:00 AM EST Patrizia seals Name Value Range Interpretation Code Description Data Source(s) Weight (Calculated Kilograms) 103.93 103.93 [facility] Height (Calculated Centimeters) 157.48 157. 48 [facility] Body Mass Index (BMI) 41.[address] Weight (Calculated Kilograms) 103.93 103.93 [facility] Height (Calculated Centimeters) 157.48 157. 48 [facility] Body Mass Index (BMI) 41.9 41.9 [facility] Weight (Calculated Kilograms) 103.93 103.93 [facility] Height (Calculated Centimeters) 157.48 157. 48 [facility] Body Mass Index (BMI) 41.9 41.9 [facility] Weight (Calculated Kilograms) 103.93 103.93 [facility] Height (Calculated Centimeters) 157.48 157. 48 [facility] Body Mass Index (BMI) 41.9 419 [facility]
[2020-06-02] MEDS: LEVOTHYROXINE 137MCG TABLET (0.137MG) PO SCH (06:57)
[2020-06-02 07:11] LABS: MAGNESIUM LEVEL 3.3 MG/DL (1.8-2.4)
[2020-06-02] MEDS ORDERED: DEXTROSE 50% 50 ML SYRINGE IV STA (07:35)
[2020-06-02] MEDS ORDERED: HumuLIN R (REGULAR) INSULIN (NovoLIN R) **100U/ML** PER UNIT IV STA (07:35)
[2020-06-02] MEDS ORDERED: FORMOTEROL FUMARATE 20 MCG/2 ML INHALATION SOLUTION (PERFOROMIST) INH SCH (08:00)
[2020-06-02] MEDS ORDERED: CALCIUM GLUCONATE 1,000 MG in D5W MINI-BAG PLUS 100 ML IV ONE (08:00)
[2020-06-02] MEDS: SYMBICORT 80/4.5MCG INHALER 6GM INH SCH ×2 (08:00→19:40)
[2020-06-02] MEDS ORDERED: ALBUTEROL SULFATE 2.5 MG/0.5 ML INH NEB SOLN NEB ONE (08:00)
--- NOTE | 2020-06-02 08:00 | ECGEPIP ---
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
[2020-06-02] MEDS: MIRALAX *UNIT DOSE* 17GM PACKET PO SCH (08:51)
[2020-06-02] MEDS: FUROSEMIDE 40MG/4ML VIAL (J1940) IV SCH ×2 (08:52→12:00)
[2020-06-02] MEDS: METOPROLOL TART 50 MG TAB PO SCH ×2 (08:53→21:43)
[2020-06-02] MEDS: MULTIVITAMINS/MINERALS THERAP 1 TAB PO SCH (08:53)
[2020-06-02] MEDS: ACETAMINOPHEN 650MG ER TAB (TYLENOL ARTHRITIS) PO SCH ×2 (08:53→21:39)
[2020-06-02] MEDS: SENOKOT S TAB PO SCH (08:53)
[2020-06-02] MEDS: ASPIRIN 325 MG TAB PO SCH (08:53)
[2020-06-02] MEDS: ASCORBIC ACID 500 MG TAB PO SCH (08:53)
[2020-06-02] MEDS: DOCUSATE SODIUM 100MG CAPSULE PO SCH (08:53)
[2020-06-02] MEDS ORDERED: FUROSEMIDE 40MG/4ML VIAL (J1940) IV SCH (09:00)
[2020-06-02] MEDS ORDERED: APIXABAN 5 MG TAB (ELIQUIS) PO SCH (09:00)
[2020-06-02] MEDS ORDERED: SALMETEROL DISKUS 50MCG INHALER (SEREVENT) INH SCH (09:00)
[2020-06-02] MEDS ORDERED: TORSEMIDE 20 MG TAB PO SCH (09:00)
[2020-06-02] MEDS: HumaLOG INSULIN (NovoLOG) PER UNIT SC SCH ×4 (09:06→21:00)
[2020-06-02] MEDS: TIOTROPIUM INHALER/CAPSULE (SPIRIVA) INH SCH (09:41)
[2020-06-02] MEDS ORDERED: NORCO, ANEXSIA 5/325MG TABLET (HYDROcodone/ACETAMINOPHEN) As Ordered ONE (10:18)
[2020-06-02] MEDS: NORCO, ANEXSIA 5/325MG TABLET (HYDROcodone/ACETAMINOPHEN) PO PRN (10:19)
--- NOTE | 2020-06-02 10:21 | IPNPDOC ---
Subjective Date Seen The patient was seen on 06/02/20. Subjective Chief Complaint/HPI Complaining of body aches and cramps all over. She does not want a catheter. Denies any SOB. Objective Physical Examination General Exam: Positive: Alert, Cooperative, Mild Distress Eye Exam: Positive: PERRLA, Conjunctiva & lids normal, EOMI; Negative: Sclera icteric ENT Exam: Positive: Atraumatic, Mucous membr. moist/pink, Pharynx Normal Neck Exam: Positive: Supple; Negative: thyromegaly Chest Exam: Positive: Rales, Diminished Heart Exam: Positive: Rate Normal, Regular Rhythm, Normal S1, Normal S2; Negative: Murmurs, Rubs Abdomen Exam: Positive: Normal bowel sounds, Soft, Other (very obese with parietal edema with lymphedematious changes ont eh lateral sides and the back) Extremity Exam: Positive: Edema; Negative: Clubbing, Cyanosis Skin Exam: Positive: Other skin issue (abdominal skin with lipodermasclerosis and parietal edema. ) Neuro Exam: Positive: Normal Speech, Other (left hemiparesis) Psych Exam: Positive: Oriented x 3 Assessment /Plan Assessment Patient is a 69-year-old woman with medical history significant for hypertension, Morbid obesity, ANGELINA on CPAP, COPD, Chronic respiratory failure with hypoxia and hypercarbia, DM with Diabetes neuropathy, CKD stage 3, CVA with residual left sided hemiparesis, history of breast cancer, glaucoma, coronary artery disease, seizure disorder, hyperlipidemia, Diastolic CHF, Severe pulmonary hypertension and corpulmonale, h/o DVT in the axillary and subclaviun vein on the right, diverticulosis patient is a resident of [facility] was sent to ED for increasing shortness of breath. Hyperkalemia received treatment in ed along with kayexalate repeat K still at 6.2 will give calcium gluconate, albuterol nebs, dex and insulin recheck at noon. Acute on chronic Diastolic and right heart failure. IV lasix q 4 hours for a net negative of 3 L/ 24 hours. Acute on chronic anemia Her HH which usually runs in the 9 to 10.0 range has been below 8.0 in the past month along with associated relative rise in BUN compared to creatinine. Now with the hyperkalemia it is highly likely she is having a slow underlying GIB causing the hyperkalemia, CLARIBEL with relatively high BUN. No EGD or colonoscopy since 2012 will stop the eliquis and monitor transfuse if HH < 7.0 Morbid obesity/ANGELINA CPAP says has not been using it regularly for the past 2 months as she has been having intermittent nose bleeds and clots. Chronic respiratory failure with hypoxia and hypercarbia continue CPAP, oxygen supplementation, nebs COPD with severe pulmonary hypertension and corpulmonale will exacerbation at present. spiriva and symbicort and duonebs prn in place of anoro Old cerebrovascular accident with residual left-sided hemiparesis. seroquel, gabapentin Diabetes with diabetic neuropathy continue insulin gabapentin Hypertension. metoprolol and diuretics. Coronary artery disease. continue asa, statin , betablocker H/O DVT inthe right upper extremity and right subclaviun related to chemoport. on eliquis Hypothyroid on synthroid Sarcoidosis. History of breast cancer, treated. Mastectomy in 2013 History of seizure disorder Not on any meds. History of bacterial meningitis in May 2015. Plan/VTE VTE Prophylaxis Ordered?: Yes VS, I&O, 24H, Fishbone Vital Signs/I&O Vital Signs Date Time Temp Pulse Resp B/P (MAP) Pulse Ox O2 Delivery O2 Flow Rate FiO2 06/02/20 08:53 62 145/67 06/02/20 08:10 97.8 19 100 Nasal Cannula 2.0 Laboratory Data 24H LABS Laboratory Tests 2 06/02/20 02:54: Immature Granulocyte % (Auto) 1.3, Neutrophils (%) (Auto) 57.4, Lymphocytes (%) (Auto) 13.1L, Monocytes (%) (Auto) 23.7H, Eosinophils (%) (Auto) 4.0H, Basophils (%) (Auto) 0.5, Neutrophils # (Auto) 4.6, Lymphocytes # (Auto) 1.0L, Monocytes # (Auto) 1.9H, Eosinophils # (Auto) 0.3, Basophils # (Auto) 0.0, Nucleated Red Blood Cells % (auto) 0.3H, Anion Gap 3L, Glomerular Filtration Rate 43.5L, Calcium Level 7.8L, Magnesium Level 3.3H, Total Creatine Kinase 165, Creatine Kinase MB 3.3, Creatine Kinase MB Relative Index 2.00, Troponin I < 0.02, ZP-Dlv-T-Type Natriuretic Peptide [id number] 06/02/20 08:07: Bedside Glucose (Misc Panel) 120H CBC/BMP Laboratory Tests 06/02/20 02:54 06/02/20 06:47 KAROLINA AMADO MD Jun 02, 2020 10:21
[2020-06-02] MEDS: BRIMONIDINE 0.15% OPHTH SOLN 5 ML OU SCH ×2 (17:03→21:53)
[2020-06-02] MEDS ORDERED: LIDOCAINE 1% MDV 20ML VIAL As Ordered ONE (18:16)
[2020-06-02] MEDS ORDERED: LIDOCAINE 1% MDV 20ML VIAL SC ONE (18:30)
--- NOTE | 2020-06-02 18:55 | REP ---
INDICATION: tlc placement. COMPARISON: 06/02/2020, 1:46 a.m.. TECHNIQUE: SINGLE PORTABLE AP VIEW OF THE CHEST WAS PERFORMED. FINDINGS: Cardiomegaly and vascular congestion persist, as well as mild streaky atelectasis or infiltrate in the right lung base. There is mild elevation of the right hemidiaphragm. There is no pneumothorax. Mediastinal silhouette is unchanged. There has been placement of a left subclavian central venous catheter. The tip is in the right atrium. IMPRESSION: Placement of left subclavian central venous catheter, tip in right atrium. No pneumothorax. <Electronically signed by Bello Alas > 06/02/20 [id number]
[2020-06-02] MEDS: SODIUM CHLORIDE 0.9% INJ 10 ML SYR IV PRN (19:16)
[2020-06-02] MEDS: FUROSEMIDE 100MG/10ML VIAL (J1940) IV SCH (19:17)
[2020-06-02 19:55] LABS: CALCIUM LEVEL 7.5 MG/DL (8.8-10.2); CREATININE FOR GFR 1.63 MG/DL (0.55-1.30); GLOMERULAR FILTRATION RATE 40.5 (>45); POTASSIUM SERUM 5.2 MEQ/L (3.5-5.1)
[2020-06-02] MEDS ORDERED: FUROSEMIDE 100MG/10ML VIAL (J1940) IV SCH (20:00)
[2020-06-02] MEDS: SODIUM CHLORIDE NASAL 0.65% SPRAY BTL (OCEAN) SCH (21:00)
[2020-06-02] MEDS: ROSUVASTATIN 10 MG TAB (CRESTOR) PO SCH (21:39)
[2020-06-02] MEDS: LEVEMIR (INSULIN DETEMIR) 1 UNITS/0.01ML SC SCH (21:42)
[2020-06-02] MEDS: SODIUM CHLORIDE 0.9% INJ 10 ML SYR IV SCH (21:44)
[2020-06-03] VITALS (22 sets, daily range): BP systolic 114–157; BP diastolic 54–68; O2SAT 92–100
[2020-06-03] MEDS: NORCO, ANEXSIA 5/325MG TABLET (HYDROcodone/ACETAMINOPHEN) PO PRN (00:20)
[2020-06-03] MEDS: FUROSEMIDE 100MG/10ML VIAL (J1940) IV SCH ×4 (02:33→21:39)
[2020-06-03] MEDS: SODIUM CHLORIDE 0.9% INJ 10 ML SYR IV SCH ×3 (06:14→21:42)
[2020-06-03] MEDS: LEVOTHYROXINE 137MCG TABLET (0.137MG) PO SCH (06:14)
[2020-06-03 06:32] LABS: HEMATOCRIT 21.8 % (36.0-47.0); MEAN CORPUSCULAR HEMOGLOBIN 27.4 pg (27.0-33.0); MEAN CORPUSCULAR HGB CONC 28.4 g/dl (32.0-36.5); MEAN CORPUSCULAR VOLUME 96.5 fl (80.0-96.0); PLATELET COUNT, AUTOMATED 320 10^3/uL (150-450); RED BLOOD COUNT 2.26 10^6/uL (4.00-5.40); WHITE BLOOD COUNT 6.1 10^3/uL (4.0-10.0)
[2020-06-03 06:36] LABS: HEMOGLOBIN 6.2 g/dl (12.0-15.5)
[2020-06-03 07:01] LABS: ALBUMIN 2.6 GM/DL (3.2-5.2); BILIRUBIN,TOTAL 0.5 MG/DL (0.2-1.0); CALCIUM LEVEL 7.8 MG/DL (8.8-10.2); CREATININE FOR GFR 1.57 MG/DL (0.55-1.30); GLOMERULAR FILTRATION RATE 42.3 (>45); POTASSIUM SERUM 4.7 MEQ/L (3.5-5.1); TOTAL PROTEIN 6.6 GM/DL (6.4-8.2)
--- NOTE | 2020-06-03 07:05 | REPVR ---
PROCEDURE INFORMATION: Exam: US Retroperitoneal Limited, Kidneys Exam date and time: 06/03/2020 6:51 AM Age: 69 years old Clinical indication: Abnormal findings; Abnormal lab test; Abnormal kidney function lab tests; Additional info: Jeffery TECHNIQUE: Imaging protocol: Real-time ultrasound of the retroperitoneum with image documentation. Examination was focused on the kidneys. COMPARISON: MRI ABDOMEN WITHOUT CONTRAST 06/12/2015 4:08 PM FINDINGS: Limitations: Examination is limited by body habitus, patient's inability to breath hold or change positions. Right kidney: The right kidney measures 10.5 cm in length. There is no hydronephrosis. The echogenicity appears grossly normal. Left kidney: Visibility of the left kidney is markedly limited. The best estimate of the kidney size is 8.2 cm in length. The internal architecture of the left kidney is not clearly delineated. Bladder: The bladder is partially distended and appears grossly unremarkable. IMPRESSION: Very limited exam. Grossly unremarkable appearance of the right kidney. Essentially nondiagnostic evaluation of the left kidney. Electronically signed by: Elizabeth Doty On 06/03/2020 07:05:09 AM
[2020-06-03] MEDS: HumaLOG INSULIN (NovoLOG) PER UNIT SC SCH ×4 (07:30→21:00)
[2020-06-03 07:34] LABS: PERCENT SATURATION 7.7 % (13.2-45.0)
[2020-06-03] MEDS: TIOTROPIUM INHALER/CAPSULE (SPIRIVA) INH SCH (08:20)
[2020-06-03] MEDS: SYMBICORT 80/4.5MCG INHALER 6GM INH SCH ×2 (08:21→20:09)
[2020-06-03] MEDS: MIRALAX *UNIT DOSE* 17GM PACKET PO SCH (09:00)
--- NOTE | 2020-06-03 09:30 | CR ---
CONSULTATION DATE: 06/02/2020 REQUESTING PHYSICIAN: Viji Hutn MD CONSULTING PHYSICIAN: Alicia Cortés DO REASON FOR CONSULTATION: Hyperkalemia and decompensated congestive heart failure. HISTORY OF PRESENT ILLNESS: Jeannette Cooney is previously unknown to me. She is a 69-year-old female with a past medical history of CKD stage 2 with a baseline creatinine of 1.1 along with morbid obesity, insulin dependent diabetes mellitus, hypertension, dyslipidemia, obstructive sleep, chronic anemia, diverticulosis, history of breast cancer with mastectomy in 2013, COPD and dilated right heat failure and other comorbid conditions mentioned below. The patient is a resident of [facility]. She was admitted earlier today due to increasing shortness of breath and generalized fluid overload and fluid retention. She has been intermittently requiring nasal cannula (two liters per minute) and laboratory studies revealed severe anemia with hemoglobin of 7.4 and hyperkalemia with potassium of 6.0 and marked difference between blood urea nitrogen and creatinine (67 versus 1.5). The patient was treated with a dose of IV Lasix and given Kayexalate as well and hospitalist service requested nephrology evaluation for further management of her diuretic and for her electrolyte disturbance management. PAST MEDICAL HISTORY: 1. CKD stage 2, baseline creatinine 1.1. 2. Congestive heart failure (dilated right ventricle with pulmonary hypertension). 3. Hypertension. 4. COPD. 5. 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 6. Coronary artery disease. 7. Pulmonary sarcoidosis. 8. Hyperlipidemia. 9. Sleep apnea, uses oxygen at night. 10. Anemia of chronic disease. 11. Diverticulosis. 12. History of breast cancer with mastectomy in 2013. 13. Glaucoma. PAST SURGICAL HISTORY: 1. Hysterectomy. 2. Left breast biopsy. 3. Left breast cystectomy. 4. Right-sided [id number] placed in August of 2017 and removed in 2019. ALLERGIES: SULFONAMIDE ANTIBIOTIC, ATORVASTATIN, BACLOFEN, CLINDAMYCIN, DULOXETINE, LISINOPRIL, TOPIRAMATE, TRAMADOL. SOCIAL HISTORY: She is a resident of [facility] since 2016. She is disabled. There is no reported alcohol, tobacco or drug use. She is wheelchair dependent. FAMILY HISTORY: The patient is unable to tell me about family history. HOME MEDICATIONS: Reviewed and include: 1. Tylenol. 2. Eliquis 5 mg p.o. b.i.d. 3. Vitamin C. 4. Aspirin 325 mg p.o. daily. 5. Docusate 100 mg p.o. daily. 6. Jardiance 10 mg p.o. daily. 7. Ferrous sulfate 325 mg p.o. daily. 8. Insulin. 9. Synthroid 137 mcg daily. 10. Metoprolol 50 mg p.o. twice daily. 11. Multivitamin daily. 12. MiraLax 17 gm p.o. daily. 13. Rosuvastatin 20 mg p.o. q.h.s. 14. Quetiapine 50 mg p.o. daily. 15. Senokot 8.6 mg p.o. daily. 16. Torsemide 20 mg p.o. daily. 17. Anoro Ellipta one puff inhaled daily. REVIEW OF SYSTEMS: Limited secondary to patient's clinical condition but constitutional: Denies fevers or chills. Eyes: Denies visual changes or tearing. Reports generally poor vision. ENT: Denies rhinorrhea or odynophagia. Cardiac: Denies chest pain, has generalized fluid retention. Denies palpitation. Respiratory: Reports shortness of breath, sleep apnea and using oxygen intermittently. Gastrointestinal: Denies nausea, vomiting or diarrhea. He does have on and off constipation. Genitourinary: Refuses Nails catheter. Denies dysuria or hematuria. Neurologic: Denies syncope. She does have a history of stroke. Psychiatric: There is underlying depression. Hematologic: There is anemia and chronic anticoagulant use. Musculoskeletal: She is mostly wheelchair dependent and there is leg swelling. Remainder of review of systems is negative or as per HPI. PHYSICAL EXAMINATION: Vital signs: Temperature 98.1, pulse 62, respiratory rate 19, blood pressure 142/68, saturating 97% on room air. Urine output so far is 600 mL. General: Patient is seen lying in bed, elderly and morbidly obese female in no apparent distress. Extraocular muscles are intact. The jugular veins are elevated. Mucous membranes are moist. Heart sounds are regular, S1, S2. There is 2+ leg edema bilaterally along with dependent edema. Breath sounds are symmetric without crackles. She was on room air at the time of my visit. There are diminished breath sounds at the bases. There is no tachypnea. Abdomen: Soft and obese. There is dependent edema in the flanks. Extremities show diffuse edema of the lower extremities in dependent area. There is no clubbing or cyanosis. Genitourinary shows Purewick catheter with vacuum canister. Psych: Calm and cooperative. Neurologic: The patient is somewhat slow to respond and requires repeated prompting but answers simple questions appropriately and is cooperative with physical exam. LABORATORY DATA: Sodium 140, potassium 6.0, bicarbonate 27, BUN 67, creatinine 1.5. BNP 13,000. Hemoglobin 7.4, platelets 308. White count 7.9. Chest x-ray: Cardiomegaly and vascular congestion. INPATIENT MEDICATIONS: 1. Calcium gluconate 1 gm IV x1. 2. Tylenol 650 mg p.o. b.i.d. 3. Albuterol p.r.n. 4. Eliquis 5 mg p.o. b.i.d. 5. Vitamin C 500 mg p.o. daily. 6. Aspirin 325 mg p.o. daily. 7. Budesonide two puffs inhaled b.i.d. 8. Lasix 80 mg IV x1. 9. Insulin. 10. Levothyroxine 137 mcg p.o. daily. 11. Metoprolol 50 mg p.o. b.i.d. 12. MiraLax one packet p.o. daily. 13. Crestor 20 mg p.o. q.h.s. 14. Kayexalate 30 gm p.o. x1. PROBLEMS: 1. [id number] right heart failure. Echocardiogram from June, reviewed with preserved left ventricular ejection fraction but dilated right ventricle with pulmonary hypertension. BNP is elevated at 13,000 and patient is in clinical fluid overload and Lasix 80 mg IV q.8 hourly is ordered and Lasix 80 mg IV q.8 hourly is ordered. She is on a 1500 mL fluid restriction. 2. Hyperkalemia. The patient is not on an STERLING or ARB nor NSAID as an outpatient. However, she is markedly hyperkalemic and I do not find a clear reason for her hyperkalemia. I am suspicious that she may have a slow GI bleed and that can cause significant hyperkalemia. In any case, she received the usual cocktail of calcium, insulin and Kayexalate and we are diuresing her with Lasix and I expect her potassium to improve with the loop diuretic. She is on a 2 gm potassium restriction. 3. Anemia with iron deficiency. Iron level was checked two weeks ago and was found to be less than 30. The patient's hemoglobin is 7.4. She is on Eliquis as an outpatient. She has a markedly elevated blood urea nitrogen as compared to creatinine. I suggest she be worked up for GI bleed. I also think she will benefit from PRBC transfusion. However, I am not going to transfuse her tonight because she is already significant volume overloaded. First we will start diuresing her and then we can transfuse blood. She is not on any PPI therapy and I suggest that be started given that she is on Eliquis and full dose aspirin. 4. Hypertension. Blood pressures are acceptable. She continues on metoprolol plus diuretic. 5. CLARIBEL on CKD stage 2. It is in the setting of fluid overload, decompensated heat failure and probable GI bleed. Continue diuresis at this time with plan to transfuse blood after volume status starts to improve. Would keep her off of STERLING or ARB and I will also get renal imaging. Her baseline creatinine appears to be around 1.1. Thank you for involving me in the care of Miss Cooney. I will be happy to follow her along with you.
[2020-06-03] MEDS: DOCUSATE SODIUM 100MG CAPSULE PO SCH (09:34)
[2020-06-03] MEDS: ASCORBIC ACID 500 MG TAB PO SCH (09:35)
[2020-06-03] MEDS: SENOKOT S TAB PO SCH (09:35)
[2020-06-03] MEDS: MULTIVITAMINS/MINERALS THERAP 1 TAB PO SCH (09:36)
[2020-06-03] MEDS: METOPROLOL TART 50 MG TAB PO SCH ×2 (09:36→21:00)
[2020-06-03] MEDS: ASPIRIN 325 MG TAB PO SCH (09:36)
--- NOTE | 2020-06-03 10:46 | IPNPDOC ---
Subjective Date Seen The patient was seen on 06/03/20. Subjective Chief Complaint/HPI Reports that she feels a little better, no appetite, she complains that her skin is becoming like "an alligator skin ". No fever or chills. She reported that she had nasal bleeding last night and spit out clots. She does not know if she has recently had any bleeding with her stools. No chest pain, says breathing is OK. Objective Physical Examination General Exam: Positive: Alert, Cooperative, No Acute Distress Eye Exam: Positive: PERRLA, Conjunctiva & lids normal, EOMI; Negative: Sclera icteric ENT Exam: Positive: Atraumatic, Mucous membr. moist/pink, Pharynx Normal Neck Exam: Positive: Supple; Negative: thyromegaly Chest Exam: Positive: Rales, Diminished Heart Exam: Positive: Rate Normal, Regular Rhythm, Normal S1, Normal S2; Negative: Murmurs, Rubs Abdomen Exam: Positive: Normal bowel sounds, Soft, Other (very obese with parietal edema with lymphedematious changes on the lateral sides and the back) Extremity Exam: Positive: Edema; Negative: Clubbing, Cyanosis Skin Exam: Positive: Other skin issue (abdominal skin with lipodermasclerosis and parietal edema. ) Neuro Exam: Positive: Normal Speech, Other (left hemiparesis) Psych Exam: Positive: Oriented x 3 Assessment /Plan Assessment Patient is a 69-year-old woman with medical history significant for hypertension, Morbid obesity, ANGELINA on CPAP, COPD, Chronic respiratory failure with hypoxia and hypercarbia, DM with Diabetes neuropathy, CKD stage 3, CVA with residual left sided hemiparesis, history of breast cancer, glaucoma, coronary artery disease, seizure disorder, hyperlipidemia, Diastolic CHF, Severe pulmonary hypertension and corpulmonale, h/o DVT in the axillary and subclaviun vein on the right, diverticulosis patient is a resident of [facility] was sent to ED for increasing shortness of breath. Acute on chronic Diastolic and right heart failure with right heart failure. IV lasix as per nephrology Acute on chronic anemia/ Iron deficiency. Her HH which usually runs in the 9 to 10.0 range has been below 8.0 in the past month along with associated relative rise in BUN compared to creatinine. Now with the hyperkalemia it is highly likely she is having a slow underlying GIB causing the hyperkalemia, CLARIBEL with relatively high BUN. No EGD or colonoscopy since 2012 will stop the eliquis and monitor Pantoprazole. transfuse if HH < 7.0 Iron deficiency will likely need Venofer. Hyperkalemia resolved. CLARIBEL on CKD stage 2 this is new from april. Nephrology consulted. Morbid obesity/ANGELINA CPAP says has not been using it regularly for the past 2 months as she has been having intermittent nose bleeds and clots. Chronic respiratory failure with hypoxia and hypercarbia continue CPAP, oxygen supplementation, nebs COPD with severe pulmonary hypertension and corpulmonale No exacerbation at present. spiriva and symbicort and duonebs prn in place of anoro Old cerebrovascular accident with residual left-sided hemiparesis. seroquel, gabapentin Diabetes with diabetic neuropathy continue insulin gabapentin Hypertension. metoprolol and diuretics. Coronary artery disease. continue asa, statin , betablocker H/O DVT in the right upper extremity and right subclaviun related to chemoport. on eliquis which is held at present due to suspicion for on going GI bleed. Hypothyroid on synthroid Sarcoidosis. History of breast cancer, treated. Mastectomy in 2013 History of seizure disorder Not on any meds. History of bacterial meningitis in May 2015. Plan/VTE VTE Prophylaxis Ordered?: Yes VS, I&O, 24H, Fishbone Vital Signs/I&O Vital Signs Date Time Temp Pulse Resp B/P (MAP) Pulse Ox O2 Delivery O2 Flow Rate FiO2 06/03/20 09:36 62 136/64 06/03/20 04:00 2.0 06/03/20 04:00 96.8 19 99 Room Air I&O- Last 24 Hours up to 6 AM 06/03/20 06:00 Intake Total 540 ml Output Total 600 ml Balance -60 ml Laboratory Data 24H LABS Laboratory Tests 2 06/02/20 17:06: Bedside Glucose (Misc Panel) 152H 06/02/20 19:14: Anion Gap 5L, Glomerular Filtration Rate 40.5L, Calcium Level 7.5L 06/02/20 21:41: Bedside Glucose (Misc Panel) 140H 06/03/20 06:14: Anion Gap 6L, Glomerular Filtration Rate 42.3L, Calcium Level 7.8L, Nucleated Red Blood Cells % (auto) 0.7H, Iron Level 28L, Total Iron Binding Capacity 365, Transferrin % Saturation 7.7L, Ferritin 34, Total Bilirubin 0.5, Aspartate Amino Transf (AST/SGOT) 12, Alanine Aminotransferase (ALT/SGPT) 30, Alkaline Phosphatase 248H, Total Protein 6.6, Albumin 2.6L, Albumin/Globulin Ratio 0.7L 06/03/20 08:06: CBC/BMP Laboratory Tests 06/02/20 19:14 06/03/20 06:14 KAROLINA MAADO MD Jun 03, 2020 10:46
[2020-06-03] MEDS ORDERED: PANTOPRAZOLE 40MG TAB (PROTONIX) PO ONE (11:00)
--- NOTE | 2020-06-03 11:13 | RO ---
OPERATIVE NOTE DATE OF OPERATION: 06/02/2020 PREPROCEDURE DIAGNOSES: 1. Hyperkalemia. 2. Acute renal insufficiency. 3. Chronic obstructive pulmonary disease (COPD). 4. Heart failure. 5. Need for vascular access. PROCEDURE: SURGEON: Marvin Hicks M.D. COMP FIELD CASE MANAGER: None. ANESTHESIA: DESCRIPTION OF PROCEDURE: The patient left infraclavicular fossa was prepped and draped in the usual sterile fashion. The infraclavicular fossa was infiltrated with 1% Lidocaine. The subclavian vein was found on the first pass and a wire was passed without difficulty. The tract was dilated and a triple lumen catheter was placed. The ports were aspirated and flushed without difficulty. The catheter was secured to the chest wall with 3-0 silk suture. The patient tolerated the procedure well. Chest x-ray revealed the line to be in good place without a pneumothorax.
[2020-06-03] MEDS: ACETAMINOPHEN 650MG ER TAB (TYLENOL ARTHRITIS) PO SCH ×2 (12:07→21:41)
[2020-06-03] MEDS ORDERED: CHLOROTHIAZIDE 500 MG VIAL (J1205 PER 1) IV ONE ×2 (13:00→19:30)
[2020-06-03] MEDS: IRON SUCROSE 100 MG in NS 100 ML OVER 1 HR IV SCH (15:09)
[2020-06-03] MEDS: BRIMONIDINE 0.15% OPHTH SOLN 5 ML OU SCH ×2 (15:09→21:43)
[2020-06-03] MEDS: LEVEMIR (INSULIN DETEMIR) 1 UNITS/0.01ML SC SCH (21:40)
[2020-06-03] MEDS: SODIUM CHLORIDE NASAL 0.65% SPRAY BTL (OCEAN) SCH (21:40)
[2020-06-03] MEDS: ROSUVASTATIN 10 MG TAB (CRESTOR) PO SCH (21:41)
[2020-06-04] VITALS (28 sets, daily range): BP systolic 110–156; BP diastolic 51–67; O2SAT 91–100
[2020-06-04 04:33] LABS: HEMOGLOBIN 7.2 g/dl (12.0-15.5); MEAN CORPUSCULAR HEMOGLOBIN 27.9 pg (27.0-33.0); MEAN CORPUSCULAR HGB CONC 28.8 g/dl (32.0-36.5); MEAN CORPUSCULAR VOLUME 96.9 fl (80.0-96.0); PLATELET COUNT, AUTOMATED 318 10^3/uL (150-450); RED BLOOD COUNT 2.58 10^6/uL (4.00-5.40)
[2020-06-04] MEDS: FUROSEMIDE 100MG/10ML VIAL (J1940) IV SCH ×4 (04:40→20:12)
[2020-06-04 05:17] LABS: ALBUMIN 2.6 GM/DL (3.2-5.2); BILIRUBIN,TOTAL 0.4 MG/DL (0.2-1.0); CALCIUM LEVEL 7.8 MG/DL (8.8-10.2); CREATININE FOR GFR 1.58 MG/DL (0.55-1.30); GLOMERULAR FILTRATION RATE 41.9 (>45); POTASSIUM SERUM 4.9 MEQ/L (3.5-5.1); TOTAL PROTEIN 6.3 GM/DL (6.4-8.2)
[2020-06-04] MEDS: SODIUM CHLORIDE 0.9% INJ 10 ML SYR IV SCH ×3 (05:21→20:13)
[2020-06-04] MEDS: LEVOTHYROXINE 137MCG TABLET (0.137MG) PO SCH (05:21)
[2020-06-04] MEDS ORDERED: metOLazone 5 MG TAB PO ONE (07:00)
[2020-06-04] MEDS: SYMBICORT 80/4.5MCG INHALER 6GM INH SCH ×2 (07:27→20:39)
[2020-06-04] MEDS: TIOTROPIUM INHALER/CAPSULE (SPIRIVA) INH SCH (07:27)
[2020-06-04] MEDS: HumaLOG INSULIN (NovoLOG) PER UNIT SC SCH ×4 (08:13→19:50)
[2020-06-04] MEDS: ASPIRIN 325 MG TAB PO SCH (08:13)
[2020-06-04] MEDS: SENOKOT S TAB PO SCH (08:14)
[2020-06-04] MEDS: DOCUSATE SODIUM 100MG CAPSULE PO SCH (08:14)
[2020-06-04] MEDS: ASCORBIC ACID 500 MG TAB PO SCH (08:14)
[2020-06-04] MEDS: MULTIVITAMINS/MINERALS THERAP 1 TAB PO SCH (08:14)
[2020-06-04] MEDS: PANTOPRAZOLE 40MG TAB (PROTONIX) PO SCH (08:15)
[2020-06-04] MEDS: METOPROLOL TART 50 MG TAB PO SCH ×2 (08:15→20:12)
[2020-06-04] MEDS: ACETAMINOPHEN 650MG ER TAB (TYLENOL ARTHRITIS) PO SCH ×2 (08:17→20:12)
[2020-06-04] MEDS: MIRALAX *UNIT DOSE* 17GM PACKET PO SCH (08:18)
[2020-06-04] MEDS ORDERED: IRON SUCROSE 100MG 5ML VIAL (J1756 PER 1MG) IV SCH (09:00)
[2020-06-04] MEDS: NORCO, ANEXSIA 5/325MG TABLET (HYDROcodone/ACETAMINOPHEN) PO PRN (10:31)
--- NOTE | 2020-06-04 10:52 | IPNPDOC ---
Subjective Date Seen The patient was seen on 06/04/20. Subjective Chief Complaint/HPI Received 1 unit of PRBC overnight. feels ok this morning. still has the nose bleed intermittently. She says it goes to the back of her throat and then she coughs it up. Objective Physical Examination General Exam: Positive: Alert, Cooperative, No Acute Distress Eye Exam: Positive: PERRLA, Conjunctiva & lids normal, EOMI; Negative: Sclera icteric ENT Exam: Positive: Atraumatic, Mucous membr. moist/pink, Pharynx Normal Neck Exam: Positive: Supple; Negative: thyromegaly Chest Exam: Positive: Rales, Diminished Heart Exam: Positive: Rate Normal, Regular Rhythm, Normal S1, Normal S2; Negative: Murmurs, Rubs Abdomen Exam: Positive: Normal bowel sounds, Soft, Other (very obese with parietal edema with lymphedematious changes on the lateral sides and the back) Extremity Exam: Positive: Edema; Negative: Clubbing, Cyanosis Skin Exam: Positive: Other skin issue (abdominal skin with lipodermasclerosis and parietal edema. ) Neuro Exam: Positive: Normal Speech, Other (left hemiparesis) Psych Exam: Positive: Oriented x 3 Assessment /Plan Assessment Patient is a 69-year-old woman with medical history significant for hypertension, Morbid obesity, ANGELINA on CPAP, COPD, Chronic respiratory failure with hypoxia and hypercarbia, DM with Diabetes neuropathy, CKD stage 3, CVA with residual left sided hemiparesis, history of breast cancer, glaucoma, coronary artery disease, seizure disorder, hyperlipidemia, Diastolic CHF, Severe pulmonary hypertension and corpulmonale, h/o DVT in the axillary and subclaviun vein on the right, diverticulosis patient is a resident of [facility] was sent to ED for increasing shortness of breath. Acute on chronic Diastolic and right heart failure with right heart failure. IV lasix as per nephrology Acute on chronic anemia/ Iron deficiency. Her HH which usually runs in the 9 to 10.0 range has been below 8.0 in the past month along with associated relative rise in BUN compared to creatinine. Now with the hyperkalemia it is highly likely she is having a slow underlying GIB causing the hyperkalemia, CLARIBEL with relatively high BUN. No EGD or colonoscopy since 2012 will stop the eliquis and monitor Pantoprazole. transfuse if HH < 7.0 Iron deficiency will likely need Venofer. Hyperkalemia resolved. CLARIBEL on CKD stage 2 this is new from April. Nephrology consulted. Morbid obesity/ANGELINA CPAP says has not been using it regularly for the past 2 months as she has been having intermittent nose bleeds and clots. Chronic respiratory failure with hypoxia and hypercarbia continue CPAP, oxygen supplementation, nebs COPD with severe pulmonary hypertension and corpulmonale No exacerbation at present. spiriva and symbicort and duonebs prn in place of anoro Old cerebrovascular accident with residual left-sided hemiparesis. seroquel, gabapentin Diabetes with diabetic neuropathy continue insulin gabapentin Hypertension. metoprolol and diuretics. Coronary artery disease. continue asa, statin , betablocker H/O DVT in the right upper extremity and right subclaviun related to chemoport. on eliquis which is held at present due to suspicion for on going GI bleed. Hypothyroid on synthroid Sarcoidosis. History of breast cancer, treated. Mastectomy in 2013 History of seizure disorder Not on any meds. History of bacterial meningitis in May 2015. Plan/VTE VTE Prophylaxis Ordered?: Yes VS, I&O, 24H, Fishbone Vital Signs/I&O Vital Signs Date Time Temp Pulse Resp B/P (MAP) Pulse Ox O2 Delivery O2 Flow Rate FiO2 06/04/20 10:31 18 Nasal Cannula 2.0 06/04/20 10:00 100 06/04/20 08:15 68 134/63 06/04/20 07:57 97.6 I&O- Last 24 Hours up to 6 AM 06/04/20 06:00 Intake Total 840 ml Output Total 1650 ml Balance -810 ml Laboratory Data 24H LABS Laboratory Tests 2 06/03/20 11:56: Bedside Glucose (Misc Panel) 118H 06/03/20 17:10: Bedside Glucose (Misc Panel) 128H 06/03/20 20:13: Bedside Glucose (Misc Panel) 188H 06/04/20 04:15: Nucleated Red Blood Cells % (auto) 0.6H, Anion Gap 5L, Glomerular Filtration Rat e 41.9L, Calcium Level 7.8L, Total Bilirubin 0.4, Aspartate Amino Transf (AST/SGOT) 20, Alanine Aminotransferase (ALT/SGPT) 28, Alkaline Phosphatase 235H, Total Protein 6.3L, Albumin 2.6L, Albumin/Globulin Ratio 0.7L CBC/BMP Laboratory Tests 06/04/20 04:15 KAROLINA AMADO MD Jun 04, 2020 10:52
[2020-06-04 11:02] LABS: FOLATE 18.5 NG/ML; VITAMIN B12 LEVEL > 2000 PG/ML
--- NOTE | 2020-06-04 13:04 | IPN ---
PROGRESS NOTE DATE: 06/04/2020 SUBJECTIVE: Jeannette is seen and examined this morning at the bedside. She is in gross volume overload. She refuses a Nails catheter. She has not diuresed much at all with just IV Lasix. She is being transfused 1 unit of packed red blood cells and the patient denies shortness of breath at rest. OBJECTIVE: VITAL SIGNS: Blood pressure is 97.1, pulse is 56, respiratory rate is 20, blood pressure is 135/64, saturating 99% on 2 liters nasal cannula. Weight on the bed scale today is 132.3 kg. GENERAL: Patient is seen lying in bed, morbidly obese female in no apparent distress. HEENT: Extraocular muscles are intact. Tongue is moist. Nasal cannula is in place. The jugular veins are a little bit difficult to assess because of significant adipose tissue but they do look elevated. Mucous membranes are moist. HEART: Heart sounds are regular, S1 and S2. There is 2+ leg edema bilaterally along with dependent edema. There is also significant edema in the abdominal wall and flanks and in the pannus. LUNGS: Breath sounds are symmetric without crackles. There are diminished breath sounds at the bases. There is no tachypnea. ABDOMEN: Soft and obese. There is abdominal wall edema and dependent edema. EXTREMITIES: Edema diffusely as well but there is no clubbing or cyanosis. GENITOURINARY: PureWick with vacuum cannister. PSYCHIATRIC: She is calm and cooperative. NEUROLOGIC: She is conversational and answers simple questions appropriately. She is chronically bed-ridden. LABORATORY DATA: Today's laboratory studies show white count of 6.1, hemoglobin 6.2, platelets are 320,000, sodium 142, potassium 4.7, BUN 68, creatinine 1.5. Iron 28, transferrin saturation 7.7. Albumin 2.6. INPATIENT MEDICATIONS: I increased her Lasix to 80 mg IV q. 6 hourly. I gave her Diuril 500 mg IV x2 doses, Venofer 100 mg IV daily x4 doses. Her remainder of medications are unchanged as compared to yesterday. PROBLEMS: 1. Acute on chronic right heart failure. Patient is in significant fluid overload with generalized anasarca appearance. She is not diuresing successfully. I have increased her Lasix to 80 mg IV q. 6 hourly and she is also given Diuril 500 mg IV x2 doses 12 hours apart. She is on a 1.5 liter fluid restriction. Her repeat echocardiogram is pending and I do feel she needs a repeat echocardiogram given the florid fluid overload that she is in. 2. Anemia with iron deficiency. Hemoglobin is down to 6.2. She is being transfused PRBC. Her iron stores are deficient. I have ordered Venofer. She is on Eliquis anticoagulation. This should probably be held and the patient should be worked up for GI bleed. She is on Protonix. 3. Hyperkalemia, it is resolved. I am not going to start any potassium sparing diuretic at this time, however. We will continue with Lasix plus Diuril. 4. CLARIBEL on CKD Stage II. Patient has a significant discrepancy between blood urea and nitrogen and serum creatinine, suggest GI bleed workup. Continue aggressive diuretic regimen as she is significantly fluid overloaded.
[2020-06-04] MEDS: BRIMONIDINE 0.15% OPHTH SOLN 5 ML OU SCH ×2 (13:19→20:14)
[2020-06-04] MEDS: IRON SUCROSE 100 MG in NS 100 ML OVER 1 HR IV SCH (13:19)
[2020-06-04] MEDS: ROSUVASTATIN 10 MG TAB (CRESTOR) PO SCH (20:12)
[2020-06-04] MEDS: SODIUM CHLORIDE NASAL 0.65% SPRAY BTL (OCEAN) SCH (20:14)
[2020-06-04] MEDS: LEVEMIR (INSULIN DETEMIR) 1 UNITS/0.01ML SC SCH (20:14)
[2020-06-05] VITALS (19 sets, daily range): BP systolic 139–151; BP diastolic 58–67; O2SAT 89–100
--- NOTE | 2020-06-05 01:54 | IPN ---
INPATIENT PROGRESS NOTE DATE: 06/04/2020 SUBJECTIVE: Patient seen and examined this morning at the bedside. She is receiving another unit of packed red blood cells. She remains grossly fluid overloaded, but urine output finally seems to be improving with the aggressive diuresis. She denies shortness of breath at rest. OBJECTIVE: VITAL SIGNS: Temperature 98.5, pulse 73, respiratory rate 18, blood pressure 110/53, saturating 99% on 2 liters nasal cannula. INTAKE AND OUTPUT: Intake yesterday was 660. Urine output yesterday was 1.2 liters. Urine output thus far today is already more than 2 liters. Weight in the bed scale is 128.6 kg. GENERAL: Patient is seen lying in bed, elderly and obese female in no apparent distress. HEENT: Extraocular muscles are intact. Tongue is moist. Nasal cannula is in place. Neck veins are difficult to assess because of significant adipose tissue, but they do look elevated. Mucous membranes are moist. HEART: Sounds are regular S1, S2. There is 2+ leg edema bilaterally along with dependent edema and significant edema in the abdominal wall, flank, sacrum and abdominal pannus. LUNGS: Show symmetric breath sounds. No crackle or rale. The breath sounds are diminished at the bases. There is no tachypnea. ABDOMEN: Soft and obese. There is significant abdominal wall and abdominal flank edema. EXTREMITIES: Diffuse edema without clubbing or cyanosis. GENITOURINARY : PureWick with vacuum canister draining clear yellow urine. PSYCHIATRIC: She is calm and cooperative. NEUROLOGIC: She is conversational and cooperative with physical exam, and answers simple questions appropriately. She is chronically bedridden. TODAY'S LABORATORY STUDIES: Sodium 142, potassium 4.9, bicarbonate 31, BUN 67, creatinine 1.5. Hemoglobin 7.2, platelets 318,000. INPATIENT MEDICATIONS: She continues on Lasix 80 mg I.V. every 6 hours. She is also receiving Venofer 100 mg I.V. daily for four days. I ordered a dose of Metolazone 10 mg p.o. times one today. The remainder of her medications are unchanged as compared to yesterday. PROBLEMS: 1. Acute on chronic right heart failure: Patient is in severe fluid overload with generalized anasarcic appearance. She has been slow to diurese, but urine output now seems to be picking up. Continue Lasix 80 mg I.V. every 6 hours and I have given a dose of Metolazone 10 mg p.o. times one today. I am not giving her a potassium sparing diuretic because of recent severe hyperkalemia. Continue 1500 cc fluid restriction. Her most recent echocardiogram was in June of 2018 and she needs a repeat echocardiogram because she is in severe congestive heart failure to evaluate for any new changes in her cardiomyopathy. 2. Anemia with iron deficiency: Hemoglobin remains low at 7.2, she has now been transfused 2 units of packed red blood cells on this admission. Her iron stores are also deficient. She is receiving Venofer. Her Eliquis anticoagulation was held and she is on Protonix for GI prophylaxis. 3. Hyperkalemia: It has resolved, however, I am not going to start any potassium sparing diuretic at present. Continue with Lasix plus Metolazone. 4. CLARIBEL on CKD stage 2: Her acute kidney injury is mild and is in the setting of severe iron deficiency anemia along with decompensated congestive heart failure. Continue aggressive diuresis and correction of the underlying anemia and workup for GI bleed.
[2020-06-05] MEDS: FUROSEMIDE 100MG/10ML VIAL (J1940) IV SCH ×4 (04:50→21:08)
[2020-06-05] MEDS: LEVOTHYROXINE 137MCG TABLET (0.137MG) PO SCH (04:50)
[2020-06-05] MEDS: SODIUM CHLORIDE 0.9% INJ 10 ML SYR IV SCH ×3 (04:55→21:10)
[2020-06-05 05:16] LABS: HEMATOCRIT 26.6 % (36.0-47.0); HEMOGLOBIN 7.7 g/dl (12.0-15.5); MEAN CORPUSCULAR HEMOGLOBIN 27.3 pg (27.0-33.0); MEAN CORPUSCULAR HGB CONC 28.9 g/dl (32.0-36.5); MEAN CORPUSCULAR VOLUME 94.3 fl (80.0-96.0); PLATELET COUNT, AUTOMATED 291 10^3/uL (150-450); RED BLOOD COUNT 2.82 10^6/uL (4.00-5.40); WHITE BLOOD COUNT 7.9 10^3/uL (4.0-10.0)
[2020-06-05 05:40] LABS: ALBUMIN 2.6 GM/DL (3.2-5.2); BILIRUBIN,TOTAL 0.8 MG/DL (0.2-1.0); CREATININE FOR GFR 1.6 MG/DL (0.55-1.30); GLOMERULAR FILTRATION RATE 41.3 (>45); TOTAL PROTEIN 6.7 GM/DL (6.4-8.2)
[2020-06-05] MEDS: TIOTROPIUM INHALER/CAPSULE (SPIRIVA) INH SCH (07:10)
[2020-06-05] MEDS: SYMBICORT 80/4.5MCG INHALER 6GM INH SCH ×2 (07:11→20:13)
[2020-06-05] MEDS ORDERED: aMILoride 5 MG TAB PO ONE ×2 (07:50→08:20)
[2020-06-05] MEDS: metOLazone 5 MG TAB PO SCH (08:24)
[2020-06-05] MEDS: HumaLOG INSULIN (NovoLOG) PER UNIT SC SCH ×4 (08:24→21:00)
[2020-06-05] MEDS: MULTIVITAMINS/MINERALS THERAP 1 TAB PO SCH (08:25)
[2020-06-05] MEDS: MIRALAX *UNIT DOSE* 17GM PACKET PO SCH (08:25)
[2020-06-05] MEDS: DOCUSATE SODIUM 100MG CAPSULE PO SCH (08:25)
[2020-06-05] MEDS: SENOKOT S TAB PO SCH (08:25)
[2020-06-05] MEDS: PANTOPRAZOLE 40MG TAB (PROTONIX) PO SCH (08:25)
[2020-06-05] MEDS: ASPIRIN 325 MG TAB PO SCH (08:25)
[2020-06-05] MEDS: ASCORBIC ACID 500 MG TAB PO SCH (08:25)
[2020-06-05] MEDS: METOPROLOL TART 50 MG TAB PO SCH ×2 (08:25→21:09)
[2020-06-05] MEDS: ACETAMINOPHEN 650MG ER TAB (TYLENOL ARTHRITIS) PO SCH ×2 (08:26→21:08)
[2020-06-05] MEDS: NORCO, ANEXSIA 5/325MG TABLET (HYDROcodone/ACETAMINOPHEN) PO PRN (10:16)
--- NOTE | 2020-06-05 10:42 | IPNPDOC ---
Text Note Date of Service The patient was seen on 06/05/20. NOTE Subjective: Patient seen and examined at bedside. No acute overnight events reported. Patient has no new medical complaints this morning. Objective: General: NAD, lying comfortably in bed HEENT: NC/AT, EOMI Chest: left anterior chest central line in place, lungs diminished breath sounds Heart: +S1S2, RRR Abd: soft, obese, NT, +BS Ext: 2-3+ LE edema A/P: Patient is a 69-year-old woman with medical history significant for hypertension, Morbid obesity, ANGELINA on CPAP, COPD, Chronic respiratory failure with hypoxia and hypercarbia, DM with Diabetes neuropathy, CKD stage 3, CVA with residual left sided hemiparesis, history of breast cancer, glaucoma, coronary artery disease, seizure disorder, hyperlipidemia, Diastolic CHF, Severe pulmonary hypertension and corpulmonale, h/o DVT in the axillary and subclaviun vein on the right, diverticulosis patient [facility] a [facility] was sent to ED for increasing shortness of breath. #Acute on chronic Diastolic and right heart failure with right heart failure. IV lasix as per nephrology #Acute on chronic anemia/ Iron deficiency. Her HH which usually runs in the 9 to 10.0 range has been below 8.0 in the past month along with associated relative rise in BUN compared to creatinine. Now with the hyperkalemia it is highly likely she is having a slow underlying GIB causing the hyperkalemia, CLARIBEL with relatively high BUN. No EGD or colonoscopy since 2012 will stop the eliquis and monitor Pantoprazole. transfuse if HH < 7.0 Iron deficiency will likely need Venofer. #Hyperkalemia resolved. #CLARIBEL on CKD stage 2 this is new from April. Nephrology consulted. #Morbid obesity/ANGELINA CPAP says has not been using it regularly for the past 2 months as she has been having intermittent nose bleeds and clots. #Chronic respiratory failure with hypoxia and hypercarbia continue CPAP, oxygen supplementation, nebs #COPD with severe pulmonary hypertension and corpulmonale No exacerbation at present. spiriva and symbicort and duonebs prn in place of anoro #Old cerebrovascular accident with residual left-sided hemiparesis. seroquel, gabapentin #Diabetes with diabetic neuropathy continue insulin gabapentin #HTN metoprolol and diuretics. #Coronary artery disease. continue asa, statin , betablocker #H/O DVT in the right upper extremity and right subclaviun related to chemoport. on eliquis which is held at present due to suspicion for on going GI bleed. #Hypothyroid on synthroid #Sarcoidosis. #History of breast cancer, treated. Mastectomy in 2013 #History of seizure disorder Not on any meds. #History of bacterial meningitis in May 2015. VS,Fishbone, I+O VS, Fishbone, I+O Laboratory Tests 06/05/20 05:03 Vital Signs Date Time Temp Pulse Resp B/P (MAP) Pulse Ox O2 Delivery O2 Flow Rate FiO2 06/05/20 10:16 20 Nasal Cannula 2.0 06/05/20 08:25 75 150/65 06/05/20 07:36 97.8 98 I&O- Last 24 Hours up to 6 AM 06/05/20 06:00 Intake Total 2265 ml Output Total 2550 ml Balance -285 ml JACK SILVA MD Jun 05, 2020 10:42
[2020-06-05] MEDS ORDERED: CEPACOL LOZENGE PO PRN (11:00)
[2020-06-05] MEDS: BRIMONIDINE 0.15% OPHTH SOLN 5 ML OU SCH ×2 (14:07→21:09)
[2020-06-05] MEDS: IRON SUCROSE 100 MG in NS 100 ML OVER 1 HR IV SCH (14:08)
[2020-06-05] MEDS ORDERED: MORPHINE 4 MG/ML 1ML VIAL/SYRINGE (J2270) IV ONE (17:55)
[2020-06-05] MEDS ORDERED: diphenhydrAMINE 25MG CAP PO ONE (21:00)
[2020-06-05] MEDS: ROSUVASTATIN 10 MG TAB (CRESTOR) PO SCH (21:08)
[2020-06-05] MEDS: LEVEMIR (INSULIN DETEMIR) 1 UNITS/0.01ML SC SCH (21:09)
[2020-06-05] MEDS: SODIUM CHLORIDE NASAL 0.65% SPRAY BTL (OCEAN) SCH (21:09)
[2020-06-06] VITALS (13 sets, daily range): BP systolic 114–135; BP diastolic 48–61; O2SAT 97–100
[2020-06-06] MEDS: NORCO, ANEXSIA 5/325MG TABLET (HYDROcodone/ACETAMINOPHEN) PO PRN ×2 (04:09→20:37)
[2020-06-06] MEDS: FUROSEMIDE 100MG/10ML VIAL (J1940) IV SCH ×4 (04:10→21:23)
[2020-06-06 05:01] LABS: HEMATOCRIT 26.9 % (36.0-47.0); HEMOGLOBIN 7.9 g/dl (12.0-15.5); MEAN CORPUSCULAR HEMOGLOBIN 28.1 pg (27.0-33.0); MEAN CORPUSCULAR HGB CONC 29.4 g/dl (32.0-36.5); MEAN CORPUSCULAR VOLUME 95.7 fl (80.0-96.0); PLATELET COUNT, AUTOMATED 282 10^3/uL (150-450); RED BLOOD COUNT 2.81 10^6/uL (4.00-5.40)
[2020-06-06] MEDS: LEVOTHYROXINE 137MCG TABLET (0.137MG) PO SCH (05:25)
[2020-06-06] MEDS: SODIUM CHLORIDE 0.9% INJ 10 ML SYR IV SCH ×3 (05:25→21:22)
[2020-06-06 05:54] LABS: CALCIUM LEVEL 7.8 MG/DL (8.8-10.2); CREATININE FOR GFR 1.59 MG/DL (0.55-1.30); GLOMERULAR FILTRATION RATE 41.6 (>45); MAGNESIUM LEVEL 2.5 MG/DL (1.8-2.4); POTASSIUM SERUM 4.4 MEQ/L (3.5-5.1)
[2020-06-06] MEDS: HumaLOG INSULIN (NovoLOG) PER UNIT SC SCH ×4 (07:30→20:29)
[2020-06-06] MEDS: SYMBICORT 80/4.5MCG INHALER 6GM INH SCH ×2 (07:45→20:54)
[2020-06-06] MEDS: TIOTROPIUM INHALER/CAPSULE (SPIRIVA) INH SCH (07:45)
[2020-06-06] MEDS: METOPROLOL TART 50 MG TAB PO SCH ×2 (09:00→20:18)
[2020-06-06] MEDS ORDERED: DICLOFENAC EPOLAMINE 1.3 % PATCH TOP SCH (09:00)
--- NOTE | 2020-06-06 09:22 | ECHO ---
DATE OF PROCEDURE: 06/04/2020 Age: 69 Gender: Female Height: 155 cm Weight: 133 kg REFERRING PHYSICIAN: Jhoan Portillo D.O. INDICATION: Congestive heart failure. MEASUREMENTS: RV 4.6 cm IVS 1.1 cm LV 5.6 cm LVPW 1.1 cm LA 3.9 cm IVC 2.4 cm DOPPLER MEASUREMENT Mitral E wave velocity 120 Mitral A wave 29 E prime septal 7.3 E prime lateral 6.2 FINDINGS: This study is of relatively acceptable technical quality considering patients body habitus. The patient is in sinus rhythm. Left ventricle is borderline dilated. There is normal contractility with overall estimated LVEF 65% to 70% based on fair views. I do not appreciate any segmental wall motion abnormality. Right ventricle is relatively poorly visualized, but it is dilated and hypokinetic. Both atria are at least mildly enlarged. The aortic valve is tricuspid. There is minimal sclerosis, but mobility is preserved. Mitral, tricuspid, and pulmonic valves appear normal. No pericardial effusion is noted. Inferior vena cava is dilated and there is no appreciable collapse with inspiration indicative of very high central venous pressure. The aortic root is normal. The aortic arch and abdominal aorta were poorly seen. Doppler interrogation: Aortic valve is functionally competent without stenosis or insufficiency. There is mild mitral and mild to moderate tricuspid insufficiency. Calculated pulmonary artery pressure is at least 70 to 75 mmHg likely representing severe pulmonary hypertension. Mitral inflow pattern and tissue Doppler imaging of the mitral annulus revealed grade 2 diastolic dysfunction. CONCLUSIONS: 1. Study is of acceptable technical quality, underlying sinus rhythm. 2. Borderline dilated left ventricle with hyperdynamic left ventricular contractility, estimated LVEF approximately 70%. Grade 2 diastolic dysfunction. 3. Dilated hypokinetic right ventricle. 4. High central venous pressure and likely severe pulmonary hypertension. MTDD
[2020-06-06] MEDS: MIRALAX *UNIT DOSE* 17GM PACKET PO SCH (09:44)
[2020-06-06] MEDS: ASPIRIN 325 MG TAB PO SCH (09:44)
[2020-06-06] MEDS: SENOKOT S TAB PO SCH (09:44)
[2020-06-06] MEDS: ACETAMINOPHEN 650MG ER TAB (TYLENOL ARTHRITIS) PO SCH ×2 (09:45→20:18)
[2020-06-06] MEDS: PANTOPRAZOLE 40MG TAB (PROTONIX) PO SCH (09:45)
[2020-06-06] MEDS: ASCORBIC ACID 500 MG TAB PO SCH (09:45)
[2020-06-06] MEDS: DOCUSATE SODIUM 100MG CAPSULE PO SCH (09:45)
[2020-06-06] MEDS: metOLazone 5 MG TAB PO SCH (09:45)
[2020-06-06] MEDS: MULTIVITAMINS/MINERALS THERAP 1 TAB PO SCH (09:45)
--- NOTE | 2020-06-06 11:00 | IPNPDOC ---
Text Note Date of Service The patient was seen on 06/06/20. NOTE Subjective: Patient seen and examined at bedside. Yesterday afternoon she complained of generalized pain, relieved with one time dose of morphine. Patient has no new medical complaints this morning. Still complains of chronic generalized pain, controlled with current oral analgesics. Objective: General: NAD, lying comfortably in bed HEENT: NC/AT, EOMI Chest: left anterior chest central line in place, lungs diminished breath sounds Heart: +S1S2, RRR Abd: soft, obese, NT, +BS Ext: 2-3+ LE edema A/P: 69F resident of [facility], sent to ED for worsening SOB, PMHx for HTN, Morbid obesity, ANGELINA/CPAP, COPD, Chronic respiratory failure with hypoxia and hypercarbia, DM with neuropathy, CKDIII, CVA with residual left sided hemiparesis, history of breast cancer, glaucoma, CAD, seizure disorder, HLD, HFpEF, severe pulmonary hypertension with cor pulmonale, h/o DVT in the axillary and subclavian vein on the right, bacterial meningitis, and diverticulosis patient. #Acute on chronic Diastolic and right heart failure - IV lasix, metolazone as per nephrology #Acute on chronic anemia/ Iron deficiency. - possible slow GI bleed - s/p 2 units PRBC - stool occult blood pending - previously has been negative - No EGD or colonoscopy since 2012 - Eliquis is on hold - Pantoprazole. - receiving IV iron #Hyperkalemia - resolved. #CLARIBEL on CKD stage 2 - this is new from April. - Nephrology consulted - assistance appreciated #Morbid obesity #ANGELINA - non-compliant with CPAP #Chronic respiratory failure with hypoxia and hypercarbia - continue CPAP, oxygen supplementation, nebs #COPD with severe pulmonary hypertension and corpulmonale - spiriva and symbicort and duonebs prn #Old CVA with residual left-sided hemiparesis. #Diabetes with diabetic neuropathy - continue insulin #HTN - metoprolol and diuretics. #Coronary artery disease. - continue asa, statin , betablocker #H/O DVT in the right upper extremity and right subclaviun related to chemoport. - on eliquis which is held at present due to suspicion for on going GI bleed. #Hypothyroid - on synthroid #Sarcoidosis. #History of breast cancer, treated. - Mastectomy in 2013 #History of seizure disorder #History of bacterial meningitis in May 2015. Dispo: transferred to med/surg, pending clinical improvement VSCielo, I+O VSCielo, I+O Laboratory Tests 06/06/20 04:40 Vital Signs Date Time Temp Pulse Resp B/P (MAP) Pulse Ox O2 Delivery O2 Flow Rate FiO2 06/06/20 09:00 59 135/61 06/06/20 06:00 100 Nasal Cannula 2.0 06/06/20 04:39 17 06/06/20 04:00 97.2 I&O- Last 24 Hours up to 6 AM 06/06/20 06:00 Intake Total 1240 ml Output Total 1900 ml Balance -660 ml JACK SILVA MD Jun 06, 2020 11:00
[2020-06-06] MEDS ORDERED: FLEET ENEMA PR ONE (11:15)
[2020-06-06] MEDS: BRIMONIDINE 0.15% OPHTH SOLN 5 ML OU SCH ×3 (14:00→20:19)
[2020-06-06] MEDS: IRON SUCROSE 100 MG in NS 100 ML OVER 1 HR IV SCH (14:57)
[2020-06-06] MEDS ORDERED: POLYVINYL ALCOHOL OPHTH SOLN 15 ML(LIQUITEARS) OU PRN (16:15)
[2020-06-06] MEDS: ROSUVASTATIN 10 MG TAB (CRESTOR) PO SCH (20:18)
[2020-06-06] MEDS: SODIUM CHLORIDE NASAL 0.65% SPRAY BTL (OCEAN) SCH (20:27)
[2020-06-06] MEDS: ANALGESIC BALM CRM 120 GM TOP SCH (20:29)
[2020-06-06] MEDS: LEVEMIR (INSULIN DETEMIR) 1 UNITS/0.01ML SC SCH (20:29)
[2020-06-07] VITALS (11 sets, daily range): BP systolic 112–139; BP diastolic 51–63
[2020-06-07] MEDS: FUROSEMIDE 100MG/10ML VIAL (J1940) IV SCH ×4 (04:33→21:32)
[2020-06-07] MEDS: SODIUM CHLORIDE 0.9% INJ 10 ML SYR IV SCH ×3 (05:04→21:33)
[2020-06-07] MEDS: LEVOTHYROXINE 137MCG TABLET (0.137MG) PO SCH (05:31)
[2020-06-07 05:43] LABS: HEMATOCRIT 29.7 % (36.0-47.0); HEMOGLOBIN 8.8 g/dl (12.0-15.5); MEAN CORPUSCULAR HEMOGLOBIN 28.2 pg (27.0-33.0); MEAN CORPUSCULAR HGB CONC 29.6 g/dl (32.0-36.5); MEAN CORPUSCULAR VOLUME 95.2 fl (80.0-96.0); PLATELET COUNT, AUTOMATED 259 10^3/uL (150-450); RED BLOOD COUNT 3.12 10^6/uL (4.00-5.40); WHITE BLOOD COUNT 7.2 10^3/uL (4.0-10.0)
[2020-06-07 06:17] LABS: CALCIUM LEVEL 7.6 MG/DL (8.8-10.2); CREATININE FOR GFR 1.46 MG/DL (0.55-1.30); POTASSIUM SERUM 4.1 MEQ/L (3.5-5.1)
[2020-06-07] MEDS: SYMBICORT 80/4.5MCG INHALER 6GM INH SCH ×2 (07:10→20:18)
[2020-06-07] MEDS: TIOTROPIUM INHALER/CAPSULE (SPIRIVA) INH SCH (07:10)
[2020-06-07] MEDS: METOPROLOL TART 50 MG TAB PO SCH ×2 (09:00→21:03)
[2020-06-07] MEDS: DOCUSATE SODIUM 100MG CAPSULE PO SCH (09:10)
[2020-06-07] MEDS: ACETAMINOPHEN 650MG ER TAB (TYLENOL ARTHRITIS) PO SCH ×2 (09:10→21:01)
[2020-06-07] MEDS: ASPIRIN 325 MG TAB PO SCH (09:10)
[2020-06-07] MEDS: SENOKOT S TAB PO SCH (09:10)
[2020-06-07] MEDS: PANTOPRAZOLE 40MG TAB (PROTONIX) PO SCH (09:10)
[2020-06-07] MEDS: ASCORBIC ACID 500 MG TAB PO SCH (09:11)
[2020-06-07] MEDS: MIRALAX *UNIT DOSE* 17GM PACKET PO SCH (09:11)
[2020-06-07] MEDS: MULTIVITAMINS/MINERALS THERAP 1 TAB PO SCH (09:11)
[2020-06-07] MEDS: ANALGESIC BALM CRM 120 GM TOP SCH ×2 (09:13→21:04)
--- NOTE | 2020-06-07 09:40 | IPNPDOC ---
Text Note Date of Service The patient was seen on 06/07/20. NOTE Subjective: Patient seen and examined at bedside. Patient has no new medical complaints this morning, but is feeling better. Objective: General: NAD, lying comfortably in bed HEENT: NC/AT, EOMI Chest: left anterior chest central line in place, lungs diminished breath sounds Heart: +S1S2, RRR Abd: soft, obese, NT, +BS Ext: 3+ LE edema A/P: 69F resident of [facility], sent to ED for worsening SOB, PMHx for HTN, Morbid obesity, ANGELINA/CPAP, COPD, Chronic respiratory failure with hypoxia and hypercarbia, DM with neuropathy, CKDIII, CVA with residual left sided hemiparesis, history of breast cancer, glaucoma, CAD, seizure disorder, HLD, HFpEF, severe pulmonary hypertension with cor pulmonale, h/o DVT in the axillary and subclavian vein on the right, bacterial meningitis, and diverticulosis patient. #Acute on chronic Diastolic and right heart failure - IV lasix - follow as per nephrology #Acute on chronic anemia/ Iron deficiency. - possible slow GI bleed - received another unit last night - s/p 3 units PRBC - stool occult blood pending - previously has been negative - No EGD or colonoscopy since 2012 - Eliquis is on hold - Pantoprazole. - s/p IV iron #Hyperkalemia - resolved. #CLARIBEL on CKD stage 2 - improving - Nephrology consulted - assistance appreciated #Morbid obesity - complicates care #ANGELINA - non-compliant with CPAP #Chronic respiratory failure with hypoxia and hypercarbia - continue CPAP, oxygen supplementation, nebs #COPD with severe pulmonary hypertension and corpulmonale - spiriva and symbicort and duonebs prn #Old CVA with residual left-sided hemiparesis. #Diabetes with diabetic neuropathy - continue insulin #HTN - metoprolol - intermittently receiving due to hold parameters, and diuretics. #Coronary artery disease. - continue asa, statin , betablocker #H/O DVT in the right upper extremity and right subclaviun related to chemoport. - was on eliquis which is held at present due to suspicion for on going GI bleed. #Hypothyroid - on synthroid #Sarcoidosis. #History of breast cancer, treated. - Mastectomy in 2013 #History of seizure disorder #History of bacterial meningitis in May 2015. Dispo: pending clinical improvement VS,Fishbone, I+O VS, Fishbone, I+O Laboratory Tests 06/07/20 05:36 Vital Signs Date Time Temp Pulse Resp B/P (MAP) Pulse Ox O2 Delivery O2 Flow Rate FiO2 06/07/20 09:00 74 119/51 06/07/20 06:00 99.0 21 99 Nasal Cannula 2.0 I&O- Last 24 Hours up to 6 AM 06/07/20 06:00 Intake Total 1590 ml Output Total 3150 ml Balance -1560 ml JACK SILVA MD Jun 07, 2020 09:39
[2020-06-07] MEDS: HumaLOG INSULIN (NovoLOG) PER UNIT SC SCH ×4 (09:55→21:00)
[2020-06-07] MEDS ORDERED: aMILoride 5 MG TAB PO ONE (11:00)
--- NOTE | 2020-06-07 12:59 | IPN ---
NEPHROLOGY PROGRESS NOTE DATE: 06/07/2020 SUBJECTIVE: The patient is seen and examined this morning at the bedside. She offers no complaints. She states she had an enema yesterday and had a bowel movement but her fecal occult blood test was unfortunately canceled. She continues to diurese but his having incontinent voids with the PureWick external female catheter. She is having increasing metabolic alkalosis secondary to aggressive diuresis. She denies any shortness of breath at rest. OBJECTIVE: PHYSICAL EXAMINATION: VITAL SIGNS: Temperature 98.4, pulse 74, respiratory rate 18, blood pressure 119/51, saturating 99-100% on 2 liters nasal cannula. INTAKE AND OUTPUT: Intake yesterday was 1.1 liters. Urine output yesterday was 2.3 liters. Weight in the bed scale today is not recorded. GENERAL APPEARANCE: The patient is seen lying in bed, morbidly obese female, awake, alert, oriented and in no apparent distress. HEENT: The extraocular muscles are intact. Nasal cannula is in place. Tongue is moist. NECK: Supple. Jugular veins are difficult to assess secondary to body habitus, but they do seem to be less elevated. HEART: Irregularly irregular, S1, S2. There is still 1-2+ peripheral edema but legs feel less tight. LUNGS: Breath sounds are diminished secondary to body habitus but symmetric. There is no tachypnea, no accessory muscle use. She is seen on her 2 liters nasal cannula. ABDOMEN: Obese, soft and nontender. There is pitting edema in the abdominal wall and flanks. GENITOURINARY: PureWick external female catheter to vacuum canister. EXTREMITIES: Negative for clubbing and cyanosis and show improvement in leg edema. LABORATORY STUDIES: Sodium 141, potassium 4.1, bicarbonate 38, BUN 69, creatinine 1.4, hemoglobin 8.8. INPATIENT MEDICATIONS: I am holding her Metolazone. She is given Amiloride 5 mg p.o. times one dose again today. She continues on Lasix 80 mg IV q. 6 hourly. Her remainder of medications are unchanged as compared to yesterday. PROBLEMS: 1. [id number] right heart failure and diastolic congestive heart failure echocardiogram noted with dilated hypokinetic right ventricle along with grade 2 diastolic dysfunction. The patient has been aggressively diuresed the past few days with Lasix 80 mg IV q. 6 hourly and she has also received several doses of Metolazone 10 mg versus Amiloride 5 mg. She refused a Nails catheter. She has had episodes daily of urinary incontinence when her PureWick vacuum catheter gets dislodged, hence I.'s and O.'s are not fully accurate. Her daily weights are downtrending and clinically her volume status is improving. I am continuing her on Lasix 80 mg IV q. 6 hourly with a dose of Amiloride given today, and she is on a 1,500 mL fluid restriction. 2. Metabolic alkalosis serum bicarbonate is up to 38. It is because of aggressive IV Lasix along with oral Metolazone. I am holding Metolazone today and giving her Amiloride instead as it will ameliorate the metabolic alkalosis. 3. Anemia related to iron deficiency and possible GI bleed she received 4 doses of Venofer. She was transfused another packed red blood cells yesterday for a total of 3 units on this admission. Hemoglobin is up to 8.8. FOBT is still pending. Her Eliquis was stopped several days ago. She is on Protonix. 4. Hypertension - blood pressures are acceptable and no changes are being made. Her diuretics are adjusted based upon her blood work. 5. Status post hyperkalemia it resolved with Lasix diuresis. Okay to give another dose of Amiloride today as she is becoming significantly alkalotic.
[2020-06-07] MEDS: BRIMONIDINE 0.15% OPHTH SOLN 5 ML OU SCH ×2 (14:53→21:04)
[2020-06-07] MEDS: ROSUVASTATIN 10 MG TAB (CRESTOR) PO SCH (21:01)
[2020-06-07] MEDS: LEVEMIR (INSULIN DETEMIR) 1 UNITS/0.01ML SC SCH (21:03)
[2020-06-07] MEDS: SODIUM CHLORIDE NASAL 0.65% SPRAY BTL (OCEAN) SCH (21:04)
[2020-06-08] MEDS: FUROSEMIDE 100MG/10ML VIAL (J1940) IV SCH ×4 (04:44→21:40)
[2020-06-08] MEDS: SODIUM CHLORIDE 0.9% INJ 10 ML SYR IV SCH ×3 (04:45→21:42)
[2020-06-08] MEDS: LEVOTHYROXINE 137MCG TABLET (0.137MG) PO SCH (05:28)
[2020-06-08 06:00] VITALS: BP 126/69
[2020-06-08 06:25] LABS: HEMATOCRIT 29.1 % (36.0-47.0); HEMOGLOBIN 8.4 g/dl (12.0-15.5); MEAN CORPUSCULAR HEMOGLOBIN 27.2 pg (27.0-33.0); MEAN CORPUSCULAR HGB CONC 28.9 g/dl (32.0-36.5); MEAN CORPUSCULAR VOLUME 94.2 fl (80.0-96.0); PLATELET COUNT, AUTOMATED 261 10^3/uL (150-450); RED BLOOD COUNT 3.09 10^6/uL (4.00-5.40); WHITE BLOOD COUNT 6.3 10^3/uL (4.0-10.0)
[2020-06-08 06:54] LABS: CALCIUM LEVEL 7.7 MG/DL (8.8-10.2); CREATININE FOR GFR 1.37 MG/DL (0.55-1.30); GLOMERULAR FILTRATION RATE 49.5 (>45); POTASSIUM SERUM 3.9 MEQ/L (3.5-5.1)
[2020-06-08] MEDS: TIOTROPIUM INHALER/CAPSULE (SPIRIVA) INH SCH (07:11)
[2020-06-08] MEDS: SYMBICORT 80/4.5MCG INHALER 6GM INH SCH ×2 (07:12→19:49)
[2020-06-08] MEDS: ASPIRIN 325 MG TAB PO SCH (08:00)
[2020-06-08] MEDS: SENOKOT S TAB PO SCH (08:01)
[2020-06-08] MEDS: PANTOPRAZOLE 40MG TAB (PROTONIX) PO SCH (08:01)
[2020-06-08] MEDS: ACETAMINOPHEN 650MG ER TAB (TYLENOL ARTHRITIS) PO SCH ×2 (08:01→21:41)
[2020-06-08] MEDS: MULTIVITAMINS/MINERALS THERAP 1 TAB PO SCH (08:01)
[2020-06-08] MEDS: DOCUSATE SODIUM 100MG CAPSULE PO SCH (08:01)
[2020-06-08] MEDS: ASCORBIC ACID 500 MG TAB PO SCH (08:05)
[2020-06-08] MEDS: METOPROLOL TART 50 MG TAB PO SCH ×2 (08:05→21:43)
[2020-06-08] MEDS: ANALGESIC BALM CRM 120 GM TOP SCH ×2 (08:05→21:42)
[2020-06-08] MEDS: HumaLOG INSULIN (NovoLOG) PER UNIT SC SCH ×4 (08:06→21:24)
[2020-06-08] MEDS: MIRALAX *UNIT DOSE* 17GM PACKET PO SCH (08:26)
--- NOTE | 2020-06-08 09:33 | IPNPDOC ---
Text Note Date of Service The patient was seen on 06/08/20. NOTE Subjective: Patient seen and examined at bedside. Patient has no new medical complaints this morning, and states she is feeling better. Objective: General: NAD, lying comfortably in bed HEENT: NC/AT, EOMI Chest: left anterior chest central line in place, lungs diminished breath sounds Heart: +S1S2, RRR Abd: soft, obese, NT, +BS Ext: 3+ LE edema A/P: 69F resident of [facility], sent to ED for worsening SOB, PMHx for HTN, Morbid obesity, ANGELINA/CPAP, COPD, Chronic respiratory failure with hypoxia and hypercarbia, DM with neuropathy, CKDIII, CVA with residual left sided hemiparesis, history of breast cancer, glaucoma, CAD, seizure disorder, HLD, HFpEF, severe pulmonary hypertension with cor pulmonale, h/o DVT in the axillary and subclavian vein on the right, bacterial meningitis, and diverticulosis patient. #Acute on chronic Diastolic and right heart failure - IV lasix - follow as per nephrology #Acute on chronic anemia/ Iron deficiency. - possible slow GI bleed - received another unit last night - s/p 3 units PRBC - stool occult blood pending - previously has been negative - No EGD or colonoscopy since 2012 - Eliquis is on hold - Pantoprazole. - s/p IV iron #Hyperkalemia - resolved. #CLARIBEL on CKD stage 2 - improving - Nephrology consulted - assistance appreciated #Morbid obesity - complicates care #ANGELINA - non-compliant with CPAP #Chronic respiratory failure with hypoxia and hypercarbia - continue CPAP, oxygen supplementation, nebs #COPD with severe pulmonary hypertension and corpulmonale - spiriva and symbicort and duonebs prn #Old CVA with residual left-sided hemiparesis. #Diabetes with diabetic neuropathy - continue insulin #HTN - metoprolol - intermittently receiving due to hold parameters, and diuretics. #Coronary artery disease. - continue asa, statin , betablocker #H/O DVT in the right upper extremity and right subclaviun related to chemoport. - was on eliquis which is held at present due to suspicion for on going GI bleed. #Hypothyroid - on synthroid #Sarcoidosis. #History of breast cancer, treated. - Mastectomy in 2013 #History of seizure disorder #History of bacterial meningitis in May 2015. Dispo: pending clinical improvement VS,Rudybone, I+O VS, Fishbone, I+O Laboratory Tests 06/08/20 05:35 06/08/20 05:36 Vital Signs Date Time Temp Pulse Resp B/P (MAP) Pulse Ox O2 Delivery O2 Flow Rate FiO2 06/08/20 08:05 74 132/57 06/08/20 06:00 97.4 19 99 Nasal Cannula 2.0 I&O- Last 24 Hours up to 6 AM 06/08/20 06:00 Intake Total 840 ml Output Total 3750 ml Balance -2910 ml JACK SILVA MD Jun 08, 2020 09:33
[2020-06-08] MEDS: SODIUM CHLORIDE 0.9% INJ 10 ML SYR IV PRN (09:58)
[2020-06-08] MEDS: NORCO, ANEXSIA 5/325MG TABLET (HYDROcodone/ACETAMINOPHEN) PO PRN (11:00)
[2020-06-08] MEDS ORDERED: aMILoride 5 MG TAB PO ONE (12:00)
--- NOTE | 2020-06-08 12:39 | IPN ---
PROGRESS NOTE DATE: 06/08/2020 SUBJECTIVE: Jeannette is seen and examined this morning at the bedside. She offers no complaints. She reports her swelling and edema continues to improve. Her weights have downtrended very nicely. Her renal function is improving and she is diuresing satisfactorily. OBJECTIVE: VITAL SIGNS: Temperature is 97.4, pulse is 74, respiratory rate is 19, blood pressure is 126/69, saturating 99% on 2 liters nasal cannula. INTAKE AND OUTPUT: She is net negative 1.8 liters in the past 24 hours. Weight on the bed scale today is 118 kg. GENERAL APPEARANCE: Patient is seen in bed with the head of bed elevated, morbidly obese female in no apparent distress. HEENT: Extraocular muscles are intact. Tongue is moist. Nasal cannula is in place. NECK: Neck veins are difficult to assess secondary to significant obesity looks less elevated. There is a central line in the left chest wall. HEART: Heart sounds are regular S1 and S2. There is still about 2+ peripheral edema and pitting edema in the abdominal wall and dependent areas but it is improving. LUNGS: Clear to auscultation bilaterally. No crackles or rales. She seems comfortable on nasal cannula. ABDOMEN: Soft and nontender. There are bowel sounds. GENITOURINARY: PureWick external female vacuum catheter. EXTREMITIES: Negative for clubbing or cyanosis. Her peripheral edema is improving. There is also abdominal wall and dependent edema. NEUROLOGIC: She is oriented x3, at baseline mentation. LABORATORY DATA: White count is 6.3, hemoglobin is 8.4, platelets are 261,000. Sodium is 142, potassium is 3.9, bicarbonate 39, BUN 68, creatinine is 1.3. Stool occult blood was negative. INPATIENT MEDICATIONS: She in for another dose of amiloride 5 mg p.o. x1. Her remainder of medications are all unchanged over the past couple of days. PROBLEMS: 1. Acute on chronic diastolic and right heart failure. Patient is diuresing well. Her weights are down significantly at least by 10 kilos. Her I and O's are not fully accurate because she has incontinent voids when her external vacuum catheter dislodges. She still has significant residual peripheral edema and dependent edema. Continue with IV Lasix and another dose of amiloride is ordered. Continue with 1.5 liter fluid restriction. 2. Metabolic alkalosis. Serum bicarbonate up to 39, it is due to aggressive diuresis with Lasix 80 mg IV q. 6 hourly. She was also over the past week receiving Metolazone/Diuril. Today, she is in for amiloride as it will ameliorate the metabolic alkalosis and is potassium sparing. 3. Anemia related to iron deficiency. She received four doses of Venofer. She was transfused a total of 3 units of packed red blood cells on this admission. Her hemoglobin has come up nicely. Her FOBT was negative. She reports that anemia has a been a longstanding issue for her. Defer further workup to the primary team and anticoagulant management is also per the primary team. She has been on Eliquis but this was held on this admission. 4. Hypertension, blood pressures are acceptable and no changes are being made. Her diuretics are adjusted based upon her electrolytes. 5. Status post hyperkalemia, it has resolved nicely with aggressive loop diuretic and thiazide diuretic, and it is okay to give her potassium sparing diuretic at this time. Continue with amiloride. 6. CLARIBEL on CKD Stage II/borderline Stage IIIA. Her renal function has improved nicely with diuresis. Creatinine is down to 1.3 today.
[2020-06-08 14:00] VITALS: BP 113/49
[2020-06-08] MEDS: BRIMONIDINE 0.15% OPHTH SOLN 5 ML OU SCH ×2 (14:27→21:42)
[2020-06-08 19:49] VITALS: O2SAT 97
[2020-06-08 21:40] VITALS: O2SAT 96
[2020-06-08] MEDS: LEVEMIR (INSULIN DETEMIR) 1 UNITS/0.01ML SC SCH (21:40)
[2020-06-08] MEDS: ROSUVASTATIN 10 MG TAB (CRESTOR) PO SCH (21:41)
[2020-06-08] MEDS: SODIUM CHLORIDE NASAL 0.65% SPRAY BTL (OCEAN) SCH (21:41)
[2020-06-08 22:00] VITALS: BP 132/54
[2020-06-09] MEDS: FUROSEMIDE 100MG/10ML VIAL (J1940) IV SCH ×4 (03:43→22:17)
[2020-06-09] MEDS: SODIUM CHLORIDE 0.9% INJ 10 ML SYR IV PRN ×2 (04:09→10:02)
[2020-06-09] MEDS: LEVOTHYROXINE 137MCG TABLET (0.137MG) PO SCH (05:35)
[2020-06-09] MEDS: SODIUM CHLORIDE 0.9% INJ 10 ML SYR IV SCH ×3 (05:35→22:17)
[2020-06-09 05:55] LABS: HEMATOCRIT 29.2 % (36.0-47.0); HEMOGLOBIN 8.6 g/dl (12.0-15.5); MEAN CORPUSCULAR HEMOGLOBIN 27.8 pg (27.0-33.0); MEAN CORPUSCULAR HGB CONC 29.5 g/dl (32.0-36.5); MEAN CORPUSCULAR VOLUME 94.5 fl (80.0-96.0); PLATELET COUNT, AUTOMATED 240 10^3/uL (150-450); RED BLOOD COUNT 3.09 10^6/uL (4.00-5.40); WHITE BLOOD COUNT 5.7 10^3/uL (4.0-10.0)
[2020-06-09 06:00] VITALS: BP 127/59
[2020-06-09 06:25] LABS: CALCIUM LEVEL 7.7 MG/DL (8.8-10.2); CREATININE FOR GFR 1.47 MG/DL (0.55-1.30); GLOMERULAR FILTRATION RATE 45.6 (>45); MAGNESIUM LEVEL 2.5 MG/DL (1.8-2.4); PHOSPHORUS LEVEL 2.9 MG/DL (2.5-4.9)
[2020-06-09] MEDS: TIOTROPIUM INHALER/CAPSULE (SPIRIVA) INH SCH (07:08)
[2020-06-09] MEDS: SYMBICORT 80/4.5MCG INHALER 6GM INH SCH ×2 (07:09→20:30)
[2020-06-09] MEDS: HumaLOG INSULIN (NovoLOG) PER UNIT SC SCH ×4 (07:51→20:27)
[2020-06-09] MEDS: MIRALAX *UNIT DOSE* 17GM PACKET PO SCH (08:17)
[2020-06-09] MEDS: ACETAMINOPHEN 650MG ER TAB (TYLENOL ARTHRITIS) PO SCH ×2 (08:18→20:33)
[2020-06-09] MEDS: METOPROLOL TART 50 MG TAB PO SCH ×2 (08:18→20:36)
[2020-06-09] MEDS: ASCORBIC ACID 500 MG TAB PO SCH (08:18)
[2020-06-09] MEDS: PANTOPRAZOLE 40MG TAB (PROTONIX) PO SCH (08:18)
[2020-06-09] MEDS: ASPIRIN 325 MG TAB PO SCH (08:18)
[2020-06-09] MEDS: DOCUSATE SODIUM 100MG CAPSULE PO SCH (08:18)
[2020-06-09] MEDS: MULTIVITAMINS/MINERALS THERAP 1 TAB PO SCH (08:18)
[2020-06-09] MEDS: SENOKOT S TAB PO SCH (08:18)
[2020-06-09] MEDS: ANALGESIC BALM CRM 120 GM TOP SCH ×2 (08:19→20:33)
--- NOTE | 2020-06-09 09:33 | IPNPDOC ---
Text Note Date of Service The patient was seen on 06/09/20. NOTE Subjective: Patient seen and examined at bedside. Patient has no new medical complaints this morning, and states she is feeling better. Objective: General: NAD, lying comfortably in bed HEENT: NC/AT, EOMI Chest: left anterior chest central line in place, lungs diminished breath sounds Heart: +S1S2, RRR Abd: soft, obese, NT, +BS Ext: 3+ LE edema A/P: 69F resident of [facility], sent to ED for worsening SOB, PMHx for HTN, Morbid obesity, ANGELINA/CPAP, COPD, Chronic respiratory failure with hypoxia and hypercarbia, DM with neuropathy, CKDIII, CVA with residual left sided hemiparesis, history of breast cancer, glaucoma, CAD, seizure disorder, HLD, HFpEF, severe pulmonary hypertension with cor pulmonale, h/o DVT in the axillary and subclavian vein on the right, bacterial meningitis, and diverticulosis patient. #Acute on chronic Diastolic and right heart failure - IV lasix - follow as per nephrology - has received 3 doses of amiloride #Acute on chronic anemia/ Iron deficiency. - possible slow GI bleed - received another unit last night - s/p 3 units PRBC - stool occult blood pending - previously has been negative - No EGD or colonoscopy since 2012 - Eliquis is on hold - Pantoprazole. - s/p IV iron #Hyperkalemia - resolved. #CLARIBEL on CKD stage 2 - improving - Nephrology consulted - assistance appreciated #Morbid obesity - complicates care #ANGELINA - non-compliant with CPAP #Chronic respiratory failure with hypoxia and hypercarbia - continue CPAP, oxygen supplementation, nebs #COPD with severe pulmonary hypertension and corpulmonale - spiriva and symbicort and duonebs prn #Old CVA with residual left-sided hemiparesis. #Diabetes with diabetic neuropathy - continue insulin #HTN - metoprolol - intermittently receiving due to hold parameters, and diuretics. #Coronary artery disease. - continue asa, statin , betablocker #H/O DVT in the right upper extremity and right subclaviun related to chemoport. - was on eliquis which is held at present due to suspicion for on going GI bleed. #Hypothyroid - on synthroid #Sarcoidosis. #History of breast cancer, treated. - Mastectomy in 2013 #History of seizure disorder #History of bacterial meningitis in May 2015. Dispo: pending clinical improvement, anticipating discharge 2-3 days VS,Cielo, I+O VS, Cielo, I+O Laboratory Tests 06/09/20 05:42 Vital Signs Date Time Temp Pulse Resp B/P (MAP) Pulse Ox O2 Delivery O2 Flow Rate FiO2 06/09/20 08:18 62 127/59 06/09/20 06:00 96.9 16 100 Nasal Cannula 2.0 I&O- Last 24 Hours up to 6 AM 06/09/20 06:00 Intake Total 1250 ml Output Total 3150 ml Balance -1900 ml JACK SILVA MD Jun 09, 2020 09:33
[2020-06-09] MEDS: NORCO, ANEXSIA 5/325MG TABLET (HYDROcodone/ACETAMINOPHEN) PO PRN (10:27)
[2020-06-09] MEDS ORDERED: diphenhydrAMINE 25MG CAP PO PRN (11:55)
[2020-06-09] MEDS: BRIMONIDINE 0.15% OPHTH SOLN 5 ML OU SCH ×2 (13:40→20:33)
[2020-06-09 14:00] VITALS: BP 136/56
[2020-06-09 20:30] VITALS: O2SAT 96
[2020-06-09] MEDS: LEVEMIR (INSULIN DETEMIR) 1 UNITS/0.01ML SC SCH (20:33)
[2020-06-09] MEDS: ROSUVASTATIN 10 MG TAB (CRESTOR) PO SCH (20:34)
[2020-06-09] MEDS: SODIUM CHLORIDE NASAL 0.65% SPRAY BTL (OCEAN) SCH (20:34)
[2020-06-09 20:35] VITALS: O2SAT 97
[2020-06-09 22:00] VITALS: BP 132/55
[2020-06-10] MEDS: FUROSEMIDE 100MG/10ML VIAL (J1940) IV SCH ×2 (03:58→10:07)
[2020-06-10] MEDS: SODIUM CHLORIDE 0.9% INJ 10 ML SYR IV PRN (03:58)
[2020-06-10] MEDS: LEVOTHYROXINE 137MCG TABLET (0.137MG) PO SCH (05:30)
[2020-06-10] MEDS: SODIUM CHLORIDE 0.9% INJ 10 ML SYR IV SCH ×3 (05:30→22:04)
[2020-06-10 05:47] LABS: HEMATOCRIT 29.9 % (36.0-47.0); HEMOGLOBIN 8.8 g/dl (12.0-15.5); MEAN CORPUSCULAR HEMOGLOBIN 27.9 pg (27.0-33.0); MEAN CORPUSCULAR HGB CONC 29.4 g/dl (32.0-36.5); MEAN CORPUSCULAR VOLUME 94.9 fl (80.0-96.0); PLATELET COUNT, AUTOMATED 224 10^3/uL (150-450); RED BLOOD COUNT 3.15 10^6/uL (4.00-5.40); WHITE BLOOD COUNT 5.7 10^3/uL (4.0-10.0)
[2020-06-10 06:00] VITALS: BP 120/43
[2020-06-10 06:02] LABS: CALCIUM LEVEL 7.9 MG/DL (8.8-10.2); CREATININE FOR GFR 1.51 MG/DL (0.55-1.30); GLOMERULAR FILTRATION RATE 44.2 (>45); POTASSIUM SERUM 4.1 MEQ/L (3.5-5.1)
[2020-06-10] MEDS: HumaLOG INSULIN (NovoLOG) PER UNIT SC SCH ×4 (07:16→20:54)
[2020-06-10] MEDS: SYMBICORT 80/4.5MCG INHALER 6GM INH SCH ×2 (07:22→20:14)
[2020-06-10] MEDS: TIOTROPIUM INHALER/CAPSULE (SPIRIVA) INH SCH (07:23)
[2020-06-10] MEDS: MIRALAX *UNIT DOSE* 17GM PACKET PO SCH (08:26)
[2020-06-10] MEDS: METOPROLOL TART 50 MG TAB PO SCH ×2 (08:27→20:57)
[2020-06-10] MEDS: SENOKOT S TAB PO SCH (08:27)
[2020-06-10] MEDS: DOCUSATE SODIUM 100MG CAPSULE PO SCH (08:27)
[2020-06-10] MEDS: ASPIRIN 325 MG TAB PO SCH (08:28)
[2020-06-10] MEDS: MULTIVITAMINS/MINERALS THERAP 1 TAB PO SCH (08:28)
[2020-06-10] MEDS: ASCORBIC ACID 500 MG TAB PO SCH (08:28)
[2020-06-10] MEDS: PANTOPRAZOLE 40MG TAB (PROTONIX) PO SCH (08:28)
[2020-06-10] MEDS: ACETAMINOPHEN 650MG ER TAB (TYLENOL ARTHRITIS) PO SCH ×2 (08:28→20:54)
[2020-06-10] MEDS: ANALGESIC BALM CRM 120 GM TOP SCH ×2 (08:29→20:53)
--- NOTE | 2020-06-10 11:37 | IPNPDOC ---
Text Note Date of Service The patient was seen on 06/10/20. NOTE Subjective: Patient seen and examined at bedside. Patient has no new medical complaints this morning, and states she is feeling better. Objective: General: NAD, lying comfortably in bed HEENT: NC/AT, EOMI Chest: left anterior chest central line in place, lungs diminished breath sounds Heart: +S1S2, RRR Abd: soft, obese, NT, +BS Ext: 3+ LE edema A/P: 69F resident of [facility], sent to ED for worsening SOB, PMHx for HTN, Morbid obesity, ANGELINA/CPAP, COPD, Chronic respiratory failure with hypoxia and hypercarbia, DM with neuropathy, CKDIII, CVA with residual left sided hemiparesis, history of breast cancer, glaucoma, CAD, seizure disorder, HLD, HFpEF, severe pulmonary hypertension with cor pulmonale, h/o DVT in the axillary and subclavian vein on the right, bacterial meningitis, and diverticulosis patient. #Acute on chronic Diastolic and right heart failure - transitioning to PO torsemide today - appreciated nephrology assistance #Acute on chronic anemia/ Iron deficiency. - possible slow GI bleed - received another unit last night - s/p 3 units PRBC - stool occult blood pending - previously has been negative - No EGD or colonoscopy since 2012 - Eliquis is on hold - will resume today - Pantoprazole. - s/p IV iron #Hyperkalemia - resolved. #CLARIBEL on CKD stage 2 - improving - Nephrology consulted - assistance appreciated #Morbid obesity - complicates care #ANGELINA - non-compliant with CPAP #Chronic respiratory failure with hypoxia and hypercarbia - continue CPAP, oxygen supplementation, nebs #COPD with severe pulmonary hypertension and corpulmonale - spiriva and symbicort and duonebs prn #Old CVA with residual left-sided hemiparesis. #Diabetes with diabetic neuropathy - continue insulin #HTN - metoprolol - intermittently receiving due to hold parameters, and diuretics. #Coronary artery disease. - continue asa, statin , betablocker #H/O DVT in the right upper extremity and right subclaviun related to chemoport. - was on eliquis which was held due to suspicion for on going GI bleed. - stool occult blood negative - resuming Eliquis today #Hypothyroid - on synthroid #Sarcoidosis. #History of breast cancer, treated. - Mastectomy in 2013 #History of seizure disorder #History of bacterial meningitis in May 2015. Dispo: pending clinical improvement, anticipating discharge back to [facility] tomorrow Cielo CARPIO, I+O Cielo CARPIO I+O Laboratory Tests 06/10/20 05:31 Vital Signs Date Time Temp Pulse Resp B/P (MAP) Pulse Ox O2 Delivery O2 Flow Rate FiO2 06/10/20 06:00 97.2 70 20 120/43 (68) 98 Nasal Cannula 2.0 I&O- Last 24 Hours up to 6 AM 06/10/20 06:00 Intake Total 1245 ml Output Total 2675 ml Balance -1430 ml JACK SILVA MD Jun 10, 2020 07:42
--- NOTE | 2020-06-10 12:57 | IPN ---
NEPHROLOGY PROGRESS NOTE DATE: 06/10/2020 SUBJECTIVE: Miss Cooney is seen this morning at her bedside. She is feeling better and laying in her bed as usual. She denies any nausea or vomiting. She has been on chronic oxygen. She is diuresing very well. OBJECTIVE: PHYSICAL EXAMINATION: VITAL SIGNS: Temperature 97.2 degrees Fahrenheit, heart rate 70 per minute, respiratory rate 20 per minute, blood pressure 120/43 mm of mercury and oxygen saturation 98% on 2 liters oxygen. INTAKE AND OUTPUT: Records from yesterday show a negative fluid balance of just over one liter. Her weight is down to 118.2 kg. Her admission weight was 132.9 kg, so she has lost at least about 15 kg since admission. HEENT: Her head is atraumatic. NECK: Supple and JVD difficult to be assessed. HEART: Regular. LUNGS: Diminished breath sounds at dependent parts. ABDOMEN: Obese and nontender. She has a central line on her left upper chest. EXTREMITIES: Without any cyanosis or clubbing. Lower extremity edema has improved significantly. Left sided chronic residual weakness from a prior stroke is unchanged. LABORATORY STUDIES: Today's labs show a white blood cell count of 5.7, hemoglobin 8.8 and hematocrit 29.9, platelet count 224. Sodium 141, potassium 4.1, chloride 97, CO2 42, BUN 67 and creatinine 1.51, glucose 141 and calcium 7.9. PROBLEMS: 1. Congestive heart failure volume status has improved significantly and she has developed metabolic alkalosis. I am going to stop the IV Lasix now and put her back on her usual outpatient diuretic, Torsemide 20 mg twice daily. 2. Edsso-he-xudwtsi kidney disease - kidney function has been mostly stable and this is probably her baseline function. 3. Metabolic alkalosis this is related to aggressive diuresis and likely to resolve over the next several days. Her intravenous diuretic is being stopped now. 4. Anemia her anemia has been essentially unchanged for the last 4 days. She should continue with iron supplement. 5. Disposition I feel the patient is likely to be ready for transfer back to the [facility] in the next 24-48 hours.
[2020-06-10] MEDS: BRIMONIDINE 0.15% OPHTH SOLN 5 ML OU SCH ×2 (13:48→20:52)
[2020-06-10 14:00] VITALS: BP 120/45
[2020-06-10] MEDS: TORSEMIDE 20 MG TAB PO SCH (17:43)
[2020-06-10 19:45] VITALS: O2SAT 98
[2020-06-10 20:14] VITALS: O2SAT 96
[2020-06-10] MEDS: SODIUM CHLORIDE NASAL 0.65% SPRAY BTL (OCEAN) SCH (20:53)
[2020-06-10] MEDS: APIXABAN 5 MG TAB (ELIQUIS) PO SCH (20:54)
[2020-06-10] MEDS: ROSUVASTATIN 10 MG TAB (CRESTOR) PO SCH (20:54)
[2020-06-10] MEDS: LEVEMIR (INSULIN DETEMIR) 1 UNITS/0.01ML SC SCH (20:54)
[2020-06-10 22:00] VITALS: BP 119/54
[2020-06-11] MEDS: NORCO, ANEXSIA 5/325MG TABLET (HYDROcodone/ACETAMINOPHEN) PO PRN (00:15)
[2020-06-11] MEDS: LEVOTHYROXINE 137MCG TABLET (0.137MG) PO SCH (05:30)
[2020-06-11] MEDS: SODIUM CHLORIDE 0.9% INJ 10 ML SYR IV SCH (05:31)
[2020-06-11 05:54] LABS: HEMATOCRIT 27.6 % (36.0-47.0); HEMOGLOBIN 8.2 g/dl (12.0-15.5); MEAN CORPUSCULAR HEMOGLOBIN 28.3 pg (27.0-33.0); MEAN CORPUSCULAR HGB CONC 29.7 g/dl (32.0-36.5); MEAN CORPUSCULAR VOLUME 95.2 fl (80.0-96.0); PLATELET COUNT, AUTOMATED 205 10^3/uL (150-450); WHITE BLOOD COUNT 5.7 10^3/uL (4.0-10.0)
[2020-06-11 06:00] VITALS: BP 119/54
[2020-06-11 06:20] LABS: CREATININE FOR GFR 1.36 MG/DL (0.55-1.30); GLOMERULAR FILTRATION RATE 49.9 (>45); POTASSIUM SERUM 4.2 MEQ/L (3.5-5.1)
[2020-06-11] MEDS: SYMBICORT 80/4.5MCG INHALER 6GM INH SCH (07:13)
[2020-06-11] MEDS: TIOTROPIUM INHALER/CAPSULE (SPIRIVA) INH SCH (07:13)
[2020-06-11] MEDS ORDERED: diphenhydrAMINE CREAM 30GM TOP PRN (08:40)
[2020-06-11] MEDS: ACETAMINOPHEN 650MG ER TAB (TYLENOL ARTHRITIS) PO SCH (08:55)
[2020-06-11] MEDS: DOCUSATE SODIUM 100MG CAPSULE PO SCH (08:55)
[2020-06-11] MEDS: ASCORBIC ACID 500 MG TAB PO SCH (08:55)
[2020-06-11] MEDS: ASPIRIN 325 MG TAB PO SCH (08:55)
[2020-06-11] MEDS: MULTIVITAMINS/MINERALS THERAP 1 TAB PO SCH (08:55)
[2020-06-11] MEDS: PANTOPRAZOLE 40MG TAB (PROTONIX) PO SCH (08:55)
[2020-06-11] MEDS: APIXABAN 5 MG TAB (ELIQUIS) PO SCH (08:55)
[2020-06-11] MEDS: SENOKOT S TAB PO SCH (08:55)
[2020-06-11] MEDS: HumaLOG INSULIN (NovoLOG) PER UNIT SC SCH (08:55)
[2020-06-11] MEDS: TORSEMIDE 20 MG TAB PO SCH (08:56)
[2020-06-11] MEDS: MIRALAX *UNIT DOSE* 17GM PACKET PO SCH (08:56)
[2020-06-11 08:57] VITALS: BP 120/54
[2020-06-11] MEDS: ANALGESIC BALM CRM 120 GM TOP SCH (08:57)
[2020-06-11] MEDS: METOPROLOL TART 50 MG TAB PO SCH (08:57)
[2020-06-11 09:00] VITALS: O2SAT 98
[2020-06-11] MEDS ORDERED: TORS20TA2 PO (10:09)
--- NOTE | 2020-06-11 12:32 | IPN ---
PROGRESS NOTE DATE: 06/11/2020 SUBJECTIVE: Ms. Cooney is seen this morning on her bedside. She is feeling better and is quite excited as she is likely to go back to the [facility] today. She has been diuresed with good response over the last several days. She denies any nausea or vomiting. She has been on chronic oxygen 2 liters. OBJECTIVE: VITAL SIGNS: Temperature is 97.6 degrees Fahrenheit, heart rate is 80 per minute, respiratory rate is 18 per minute. Blood pressure is 120/54 mmHg and oxygen saturation 99%. HEENT: Head is atraumatic. NECK: Supple. JVD is difficult to be assessed. HEART: Heart sounds are irregular. LUNGS: Diminished breath sounds. ABDOMEN: Obese and nontender. Bowel sounds are present. EXTREMITIES: Without any cyanosis or clubbing. Lower extremity edema has improved significantly. NEUROLOGIC: She is awake, alert, and at her baseline mentation. She has chronic residual left sided weakness due to prior stroke. LABORATORY DATA: Today's labs shows a WBC of 5.7, hemoglobin 8.2, and hematocrit 27.6. Platelets are 205,000. Sodium is 138, potassium is 4.2, chloride 95, CO2 41, BUN 65 and creatinine 1.36. Glucose is 185 and calcium is 8.0. PROBLEMS: 1. Acute kidney injury superimposed on chronic kidney disease. Her kidney function has been stable for the last four days with only minimal fluctuations. Electrolytes are stable. 2. Congestive heart failure, she has a known history of biventricular congestive heart failure. Her volume status has improved significantly with aggressive diuresis. She has been on oral diuretic for the last 24 hours and I would recommend to continue with torsemide 20 mg b.i.d. She should follow-up in the clinic for further adjustment in her diuretics. 3. Anemia, she has significant anemia but it is stable and does not need any urgent transfusion. She should continue with iron supplement and follow-up in the outpatient clinic. 4. Disposition: From a renal standpoint, the patient can be discharged back to the [facility] today.
--- NOTE | 2020-06-11 13:16 | DS.PDOC ---
Discharge Summary General Date of Admission Jun 02, 2020 at 04:33 Date of Discharge 06/11/20 Primary Care Physician: Юлия Vicente DO Attending Physician: JACK SILVA MD Specialist/Consultants Involve: YANET SALAZAR DO Discharge Summary PROCEDURES PERFORMED DURING STAY: Left sided subclavian central venous catheter placement ADMITTING DIAGNOSES: 1. Acute on Chronic Biventricular CHF exacerbation (LVEF 60-65% on 06/22) 2. Acute on Chronic Kidney Injury 3. hyperkalemia 4. COPD 5. Anemia of chronic disease 6. IDDM 7. Atrial Fibrillation DISCHARGE DIAGNOSES: 1. Acute on Chronic Biventricular CHF exacerbation (LVEF 60-65% on 06/22) 2. Acute on Chronic Kidney Injury 3. hyperkalemia 4. COPD 5. Anemia of chronic disease 6. IDDM 7. Atrial Fibrillation COMPLICATIONS/CHIEF COMPLAINT: Fluid Overload,Hyperkalemia,Pulmonary Hypertension. HISTORY OF PRESENT ILLNESS: Patient is a 69 year old female with a past medical history significant for CVA in 2008, HTN, COPD, IDDM, CAD, Biventricular heart failure, ANGELINA/pickwickian syndrome, Anemia of chronic disease, and CKD who presented to the [facility] ER with complaint of worsening shortness of breath. Patient is a resident of the [facility]. At the time she was evaluated by nursing staff that noted bilateral crackles. She was then transferred to the ER for further evaluation and management. In the ER the patient was found to be vitally stable. She was hyperkalemic and anemic. She received IV lasix and Kayexalate in the ER. HOSPITAL COURSE: On admission the patient was continued with diuresis and fluid restriction. Regarding her hyperkalemia there was no clear etiology. She did correct with Lasix and Kayexalate. She was anemic with a Hgb of 7.4 on admission. Possible slow GI bleed was considered given her iron deficiency anemia. The patient was on Eliquis and Aspirin outpatient. A PPI was added. The patient was evaluated by Nephrology due to her hyperkalemia and CHF. An echocardiogram was performed which demonstrated LVEF of 70% and Grade 2 Diastolic dysfunction and high central venous pressure with likely severe pulmonary hypertension. During the course of her hospitalization the patient was continued with diuresis. Once medically optimized she was discharged back to the [facility] DISCHARGE MEDICATIONS: Please see below. ALLERGIES: Please see below. PHYSICAL EXAMINATION ON DISCHARGE: VITAL SIGNS: Please see below. GENERAL: Awake, alert, and oriented. Appears in no acute distress. Lying in bed comfortably. HEENT: Atraumatic, normocephalic. Eyes are nonicteric. Trachea is midline. Mucous membranes are pink and moist NECK: No palpable cervical, supraclavicular, or axillary lymphadenopathy. Pastor neck CARDIOVASCULAR EXAMINATION: Normal S1, S2. Somewhat distant heart sounds. Normal rate and rhythm. No clicks, rubs, or murmurs RESPIRATORY EXAMINATION: Clear breath sounds bilaterally. No wheezes, rhonchi, or rales ABDOMINAL EXAMINATION: Soft, nondistended. Obese. Nontender. Normoactive bowel sounds throughout EXTREMITIES: 1+ bilateral pitting edema. Full and equal pulses in bilateral upper and lower extremities SKIN: No rashes or lesion NEUROLOGICAL EXAMINATION: No focal neurological deficits PSYCHIATRIC EXAMINATION: Mood and affect appear appropriate LABORATORY DATA: Please see below. IMAGING: PROCEDURE INFORMATION: Exam: XR Chest Exam date and time: 06/02/2020 1:49 AM Age: 69 years old Clinical indication: SOB TECHNIQUE: Imaging protocol: XR of the chest Views: 1 view. COMPARISON: NC Chest, 1 view 05/23/2020 1:23 PM FINDINGS: Lungs: There is pulmonary vascular congestion. No lung consolidation is noted. Pleural spaces: Unremarkable. No pleural effusion. No pneumothorax. Heart/Mediastinum: The cardiac silhouette is enlarged and similar in size compared to the prior chest x-ray on 05/23/2020. Bones/joints: Unremarkable. IMPRESSION: Cardiomegaly and pulmonary vascular congestion. Electronically signed by: Jared Talbert On 06/02/2020 02:09:21 AM INDICATION: tlc placement. COMPARISON: 06/02/2020, 1:46 a.m.. TECHNIQUE: SINGLE PORTABLE AP VIEW OF THE CHEST WAS PERFORMED. FINDINGS: Cardiomegaly and vascular congestion persist, as well as mild streaky atelectasis or infiltrate in the right lung base. There is mild elevation of the right hemidiaphragm. There is no pneumothorax. Mediastinal silhouette is unchanged. There has been placement of a left subclavian central venous catheter. The tip is in the right atrium. IMPRESSION: Placement of left subclavian central venous catheter, tip in right atrium. No pneumothorax. PROCEDURE INFORMATION: Exam: US Retroperitoneal Limited, Kidneys Exam date and time: 06/03/2020 6:51 AM Age: 69 years old Clinical indication: Abnormal findings; Abnormal lab test; Abnormal kidney function lab tests; Additional info: Jeffery TECHNIQUE: Imaging protocol: Real-time ultrasound of the retroperitoneum with image documentation. Examination was focused on the kidneys. COMPARISON: MRI ABDOMEN WITHOUT CONTRAST 06/12/2015 4:08 PM FINDINGS: Limitations: Examination is limited by body habitus, patient's inability to breath hold or change positions. Right kidney: The right kidney measures 10.5 cm in length. There is no hydronephrosis. The echogenicity appears grossly normal. Left kidney: Visibility of the left kidney is markedly limited. The best estimate of the kidney size is 8.2 cm in length. The internal architecture of the left kidney is not clearly delineated. Bladder: The bladder is partially distended and appears grossly unremarkable. IMPRESSION: Very limited exam. Grossly unremarkable appearance of the right kidney. Essentially nondiagnostic evaluation of the left kidney. PROGNOSIS: Fair ACTIVITY: [As tolerated]. DIET: 2g sodium restricted DISCHARGE PLAN: Patient is to be discharged back to the [facility]. She will follow-up with her PCP in 7-10 days. Lasix dose increased to 20mg twice a day. She will need to follow-up with PCP in regards to her anemia for further evaluation. Consider possible endoscopy for possible slow GI bleed given hyperkalemia and anemia. DISPOSITION: [facility]. DISCHARGE INSTRUCTIONS: 1. Continue Lasix 20 mg BID 2. Follow-up with PCP for further workup of anemia 3. Follow-up with Nephrology in 1-2 weeks for medication titration 4. Continue Iron supplement DISCHARGE CONDITION: [Stable]. TIME SPENT ON DISCHARGE: Greater than 40 minutes. Attending Note: Patient seen and examined independently. Agree with resident's note and plan of care. Vital Signs/I&Os Vital Signs Date Time Temp Pulse Resp B/P (MAP) Pulse Ox O2 Delivery O2 Flow Rate FiO2 06/11/20 09:00 2.0 06/11/20 09:00 98 06/11/20 08:57 80 120/54 06/11/20 06:00 97.6 19 Nasal Cannula I&O- Last 24 Hours up to 6 AM 06/11/20 06:00 Intake Total 750 ml Output Total 3700 ml Balance -2950 ml Laboratory Data Labs 24H Laboratory Tests 2 06/10/20 16:30: Bedside Glucose (Misc Panel) 137H 06/10/20 20:45: Bedside Glucose (Misc Panel) 299H 06/11/20 05:35: Nucleated Red Blood Cells % (auto) 0.0, Anion Gap 2L, Glomerular Filtration Rate 49.9, Calcium Level 8.0L 06/11/20 09:20: Coronavirus (COVID-19)(PCR) NEGATIVE CBC/BMP Laboratory Tests 06/11/20 05:35 FSBS Laboratory Tests Test 06/10/20 16:30 06/10/20 20:45 Range/Units Bedside Glucose (Misc Panel) 137 299 80-115 MG/DL Microbiology Microbiology 06/07/20 Stool Occult Blood (EREN) - Final, Complete Discharge Medications Scheduled Acetaminophen (Acetaminophen 8 Hour) 650 Mg Tablet.er, 650 MG PO BID, (Reported) Apixaban (Eliquis) 5 Mg Tablet, 5 MG PO BID, (Reported) Ascorbic Acid (Vitamin C) 500 Mg Capsule, 500 MG PO DAILY, (Reported) Aspirin (Aspirin) 325 Mg Tab, 325 MG PO DAILY, (Reported) Bimatoprost (Lumigan) 0.01% 2.5ML Drops, 1 DROP OU DAILY, (Reported) Brimonidine Tartrate (Brimonidine Tartrate) 100 Drop/5 Ml Soln, 1 DROP OU BID, (Reported) 1400 AND 2100 Diclofenac Sodium (Voltaren) 100 Gm Gel..gram., 1 APPLIC TOP BID, (Reported) knees wrists neck and shoulders Docusate Sodium (Colace) 100 Mg Capsule, 100 MG PO DAILY, (Reported) Empagliflozin (Jardiance) 10 Mg Tablet, 10 MG PO DAILY, (Reported) Ferrous Sulfate (Ferrous Sulfate) 325 Mg Tablet, 325 MG PO DAILY, (Reported) Insulin Glargine (Lantus) 100 Unit/1 Ml Vial, 55 UNITS SC QHS, (Reported) Insulin Human Lispro (Humalog) 1 Units/0.01 Ml Inj, 1 DOSE SC BID, (Reported) PER SLIDING SCALE 0730/1700 Levothyroxine Sodium (Levothyroxine Sodium) 137 Mcg Tablet, 137 MCG PO QAM, (Reported) Metoprolol Tartrate (Metoprolol Tartrate) 50 Mg Tablet, 50 MG PO BID, (Reported) Multivitamins (Thera M Plus Tablet) 1 Tab Tab, 1 TAB PO DAILY, (Reported) Polyethylene Glycol 3350 (Miralax) 1 Pow Pow, 17 GM PO DAILY, (Reported) Psyllium Husk (Psyllium Husk) 1 Gm Powder, 1 DOSE PO QHS, (Reported) Quetiapine Fumarate (Quetiapine Fumarate) 50 Mg Tablet, 50 MG PO DAILY, (Reported) Rosuvastatin Calcium (Rosuvastatin Calcium) 20 Mg Tab, 20 MG PO QHS, (Reported) Sennosides (Senokot) 8.6 Mg Tablet, 1 TAB PO DAILY, (Reported) Sodium Chloride (Saline Nasal [place]) 44 Ml [place], 2 SPRAY NARES QHS, (Reported) Torsemide (Torsemide) 20 Mg Tablet, 20 MG PO BID@09,17 Take 1 Tablet Twice a Day Umeclidinium Brm/Vilanterol Tr (Anoro Ellipta 62.5-25 Mcg INH) 1 Each Blst.w.dev, 1 PUFF PO DAILY, (Reported) Scheduled PRN Acetaminophen (Acetaminophen) 650 Mg Supp.rect, 650 MG NC Q4H PRN for PAIN / FEVER, (Reported) Acetaminophen (Acetaminophen ER) 650 Mg Tablet.er, 650 MG PO Q8H PRN for PAIN, (Reported) Bisacodyl (Bisacodyl) 10 Mg Sup, 10 MG NC DAILY PRN for CONSTIPATION, (Reported) Glucagon,Human Recombinant (Glucagon Emergency Kit) 1 Mg Kit, 1 MG IM ASDIRECTED PRN for LOW BLOOD SUGAR, (Reported) Hydrocodone/Acetaminophen (Hydrocodone-Acetamin 5-325 mg) 1 Each Tablet, 1 TAB PO BID PRN for PAIN, (Reported) Ipratropium/Albuterol Sulfate (Iprat-Albut 0.5-3(2.5) mg/3 ml) 3 Ml Ampul.neb, 1 VIAL NEB Q6H PRN for chest pain, (Reported) Milk Of Magnesia (Milk of Magnesia) 2,400 Mg/10 Ml Oral.susp, 10 ML PO DAILY PRN for CONSTIPATION, (Reported) Phenol (Chloraseptic) 20 Ml [place], 1 SPRAY PO Q4H PRN for SORE THROAT, (Reported) Sodium Phosphate,[place]-Dibasic (Enema Ready To Use) 1 Laurie Laurie, 1 LAURIE NC DAILY PRN for CONSTIPATION, (Reported) guaiFENesin (Cough Syrup) 100 Mg/5 Ml Liquid, 5 ML PO Q4H PRN for COUGH, (Reported) Allergies Coded Allergies: Sulfa (Sulfonamide Antibiotics) (Verified Allergy, Unknown, 06/30/18) atorvastatin (Verified Allergy, Unknown, 06/30/18) baclofen (Verified Allergy, Unknown, 06/30/18) clindamycin (Verified Allergy, Unknown, 06/30/18) duloxetine (Verified Allergy, Unknown, 06/30/18) levetiracetam (Verified Allergy, Unknown, 06/30/18) lisinopril (Verified Allergy, Unknown, 06/30/18) topiramate (Verified Allergy, Unknown, 06/30/18) tramadol (Verified Allergy, Unknown, 06/30/18) KATIE OBRIEN DO Jun 11, 2020 13:16 JACK SILVA MD Jun 11, 2020 18:36
== END 2020-06-11 11:52 | DRG 811 ==
LOC: M ED 23:53 → M MSPAV 06-02 04:33 → ENRESERV 06-02 05:16 → M ED INP 06-02 05:37 → M MSPAV 06-02 07:52 → M PCU 06-02 18:00 → M MSPAV 06-06 13:25
PROVIDERS: ADMIT Internal Medicine; ATTEND Internal Medicine
PROC: 02H633Z Insertion of Infusion Device into Right Atrium, Percutaneous Approach (ICD-10-PCS; principal; 2020-06-02)
PROC: 30233N1 Transfusion of Nonautologous Red Blood Cells into Peripheral Vein, Percutaneous Approach (ICD-10-PCS; 2020-06-02)
DX: D50.9 Iron deficiency anemia, unspecified (principal); I50.33 Acute on chronic diastolic (congestive) heart failure; E66.2 Morbid (severe) obesity with alveolar hypoventilation; N17.9 Acute kidney failure, unspecified; J96.11 Chronic respiratory failure with hypoxia; J96.12 Chronic respiratory failure with hypercapnia; I69.354 Hemiplegia and hemiparesis following cerebral infarction affecting left non-dominant side; Z68.43 Body mass index [BMI] 50.0-59.9, adult; I13.0 Hypertensive heart and chronic kidney disease with heart failure and stage 1 through stage 4 chronic kidney disease, or unspecified chronic kidney disease; E87.3 Alkalosis; I27.29 Other secondary pulmonary hypertension; E11.40 Type 2 diabetes mellitus with diabetic neuropathy, unspecified; I25.10 Atherosclerotic heart disease of native coronary artery without angina pectoris; E78.5 Hyperlipidemia, unspecified; I50.813 Acute on chronic right heart failure; E11.319 Type 2 diabetes mellitus with unspecified diabetic retinopathy without macular edema; H40.9 Unspecified glaucoma; E03.9 Hypothyroidism, unspecified; I48.91 Unspecified atrial fibrillation; M81.0 Age-related osteoporosis without current pathological fracture; D86.9 Sarcoidosis, unspecified; G89.29 Other chronic pain; E11.22 Type 2 diabetes mellitus with diabetic chronic kidney disease; G47.33 Obstructive sleep apnea (adult) (pediatric); N18.2 Chronic kidney disease, stage 2 (mild); E87.5 Hyperkalemia; D63.8 Anemia in other chronic diseases classified elsewhere; Z20.822 Contact with and (suspected) exposure to COVID-19; Z85.3 Personal history of malignant neoplasm of breast; Z90.12 Acquired absence of left breast and nipple; Z79.01 Long term (current) use of anticoagulants; Z79.4 Long term (current) use of insulin; Z79.82 Long term (current) use of aspirin; Z79.899 Other long term (current) drug therapy; Z88.2 Allergy status to sulfonamides; Z88.5 Allergy status to narcotic agent; Z88.8 Allergy status to other drugs, medicaments and biological substances; Z88.1 Allergy status to other antibiotic agents; Z99.3 Dependence on wheelchair

== ENCOUNTER → 2020-06-01 | Outpatient (REF) | payer MEDICARE, MEDICAID ==
[2020-06-01 16:17] LABS: CALCIUM LEVEL 8.2 MG/DL (8.8-10.2); CREATININE FOR GFR 1.56 MG/DL (0.55-1.30); GLOMERULAR FILTRATION RATE 42.6 (>45); POTASSIUM SERUM 5.5 MEQ/L (3.5-5.1)
== END ==
LOC: SKLAB2 08:00
DX: I10 Essential (primary) hypertension (principal)

== ENCOUNTER → 2020-06-06 | Outpatient (REF) | payer MEDICARE, MEDICAID ==
[~2020-06-06] MED LIST changes: +ACET650T15 PO; +ACET65SU PR; +ANOR1AER PO; +CHLO1.4S2 PO; +ELIQ5TAB PO; +GUAI100L31 PO; +HM S0.65 NARES; +HYDR-3713 PO; +IPRA0.00 NEB; +JARD1TAB PO; +LEVO137T2 PO; +PSYLPOW4 PO; +QC A650T3 PO; +QUET50TA3 PO; +VITA500C24 PO; +VOLT1GEL15 TOP
== END ==
LOC: EEVIPCON → SKLAB2 10:12
PROVIDERS: ATTEND Internal Medicine
DX: Z11.52 Encounter for screening for COVID-19 (principal); Z53.9 Procedure and treatment not carried out, unspecified reason

== ENCOUNTER → 2020-06-12 | Outpatient (REF) | payer MEDICARE, MEDICAID ==
[2020-06-12 07:45] LABS: BASO # 0.1 10^3/uL (0.0-0.2); BASO % 1.1 % (0.0-1.0); EOS # 0.9 10^3/uL (0.0-0.5); EOS % 15.3 % (0.0-3.0); HEMATOCRIT 28.7 % (36.0-47.0); HEMOGLOBIN 8.3 g/dl (12.0-15.5); LYMPH # 0.7 10^3/uL (1.5-5.0); LYMPH % 13.2 % (24.0-44.0); MEAN CORPUSCULAR HEMOGLOBIN 27.4 pg (27.0-33.0); MEAN CORPUSCULAR HGB CONC 28.9 g/dl (32.0-36.5); MEAN CORPUSCULAR VOLUME 94.7 fl (80.0-96.0); MONO # 1.1 10^3/uL (0.0-0.8); MONO % 19.9 % (2.0-8.0); NEUTROPHILS # 2.8 10^3/uL (1.5-8.5); NEUTROPHILS % 50.1 % (36.0-66.0); PLATELET COUNT, AUTOMATED 227 10^3/uL (150-450); RED BLOOD COUNT 3.03 10^6/uL (4.00-5.40); WHITE BLOOD COUNT 5.5 10^3/uL (4.0-10.0)
[2020-06-12 08:01] LABS: CREATININE FOR GFR 1.24 MG/DL (0.55-1.30); GLOMERULAR FILTRATION RATE 55.5 (>45); POTASSIUM SERUM 4.2 MEQ/L (3.5-5.1)
== END ==
LOC: SKLAB2 10:16
DX: D64.9 Anemia, unspecified (principal)

== ENCOUNTER → 2020-06-13 | Outpatient (REF) | payer MEDICARE, MEDICAID | LOC: SKLAB2 10:14 | PROVIDERS: ATTEND Internal Medicine | DX: Z11.52 Encounter for screening for COVID-19 (principal); Z53.9 Procedure and treatment not carried out, unspecified reason ==

== ENCOUNTER → 2020-06-19 | Outpatient (REF) | payer MEDICARE, MEDICAID ==
[2020-06-19 09:24] LABS: HEMATOCRIT 27.7 % (36.0-47.0); HEMOGLOBIN 8.2 g/dl (12.0-15.5); MEAN CORPUSCULAR HEMOGLOBIN 28.2 pg (27.0-33.0); MEAN CORPUSCULAR HGB CONC 29.6 g/dl (32.0-36.5); MEAN CORPUSCULAR VOLUME 95.2 fl (80.0-96.0); PLATELET COUNT, AUTOMATED 396 10^3/uL (150-450); RED BLOOD COUNT 2.91 10^6/uL (4.00-5.40); WHITE BLOOD COUNT 9.1 10^3/uL (4.0-10.0)
[2020-06-19 09:46] LABS: CALCIUM LEVEL 8.3 MG/DL (8.8-10.2); CREATININE FOR GFR 1.42 MG/DL (0.55-1.30); GLOMERULAR FILTRATION RATE 47.4 (>45); POTASSIUM SERUM 4.2 MEQ/L (3.5-5.1)
== END ==
LOC: SKLAB2 10:16
DX: E11.9 Type 2 diabetes mellitus without complications (principal)

== ENCOUNTER → 2020-06-20 | Outpatient (REF) | payer MEDICARE, MEDICAID | LOC: SKLAB2 10:17 | PROVIDERS: ATTEND Internal Medicine | DX: Z20.822 Contact with and (suspected) exposure to COVID-19 (principal) ==

== ENCOUNTER → 2020-06-26 | Outpatient (REF) | payer MEDICARE, MEDICAID ==
[2020-06-26 07:58] LABS: HEMATOCRIT 27.4 % (36.0-47.0); HEMOGLOBIN 7.8 g/dl (12.0-15.5); MEAN CORPUSCULAR HGB CONC 28.5 g/dl (32.0-36.5); MEAN CORPUSCULAR VOLUME 101.9 fl (80.0-96.0); PLATELET COUNT, AUTOMATED 294 10^3/uL (150-450); RED BLOOD COUNT 2.69 10^6/uL (4.00-5.40); WHITE BLOOD COUNT 7.6 10^3/uL (4.0-10.0)
[2020-06-26 08:12] LABS: CALCIUM LEVEL 8.3 MG/DL (8.8-10.2); CREATININE FOR GFR 1.24 MG/DL (0.55-1.30); GLOMERULAR FILTRATION RATE 55.5 (>45); POTASSIUM SERUM 4.4 MEQ/L (3.5-5.1)
== END ==
LOC: SKLAB2 10:18
DX: D64.9 Anemia, unspecified (principal)

== ENCOUNTER → 2020-07-03 | Outpatient (REF) | payer MEDICARE, MEDICAID ==
[2020-07-03 09:25] LABS: HEMOGLOBIN 7.4 g/dl (12.0-15.5); MEAN CORPUSCULAR HEMOGLOBIN 28.9 pg (27.0-33.0); MEAN CORPUSCULAR HGB CONC 28.5 g/dl (32.0-36.5); MEAN CORPUSCULAR VOLUME 101.6 fl (80.0-96.0); PLATELET COUNT, AUTOMATED 220 10^3/uL (150-450); RED BLOOD COUNT 2.56 10^6/uL (4.00-5.40); WHITE BLOOD COUNT 6.2 10^3/uL (4.0-10.0)
[2020-07-03 09:50] LABS: CALCIUM LEVEL 7.9 MG/DL (8.8-10.2); CREATININE FOR GFR 1.43 MG/DL (0.55-1.30); GLOMERULAR FILTRATION RATE 47.1 (>45); POTASSIUM SERUM 4.5 MEQ/L (3.5-5.1)
== END ==
LOC: SKLAB2 13:03
DX: E11.9 Type 2 diabetes mellitus without complications (principal)

== ENCOUNTER → 2020-07-06 | Outpatient (REF) | payer MEDICARE, MEDICAID | LOC: SKLAB2 13:03 | PROVIDERS: ATTEND Internal Medicine | DX: Z20.822 Contact with and (suspected) exposure to COVID-19 (principal) ==

== ENCOUNTER → 2020-07-10 | Outpatient (REF) | payer MEDICARE, MEDICAID ==
[2020-07-10 09:12] LABS: HEMATOCRIT 26.5 % (36.0-47.0); HEMOGLOBIN 7.6 g/dl (12.0-15.5); MEAN CORPUSCULAR HEMOGLOBIN 29.3 pg (27.0-33.0); MEAN CORPUSCULAR HGB CONC 28.7 g/dl (32.0-36.5); MEAN CORPUSCULAR VOLUME 102.3 fl (80.0-96.0); PLATELET COUNT, AUTOMATED 225 10^3/uL (150-450); RED BLOOD COUNT 2.59 10^6/uL (4.00-5.40); WHITE BLOOD COUNT 6.9 10^3/uL (4.0-10.0)
[2020-07-10 09:25] LABS: CALCIUM LEVEL 8.1 MG/DL (8.8-10.2); CREATININE FOR GFR 1.42 MG/DL (0.55-1.30); GLOMERULAR FILTRATION RATE 47.4 (>45); POTASSIUM SERUM 4.4 MEQ/L (3.5-5.1)
== END ==
LOC: SKLAB2 13:07
DX: I50.9 Heart failure, unspecified (principal)

== ENCOUNTER → 2020-07-14 | Outpatient (REF) | payer MEDICARE, MEDICAID ==
[~2020-07-14] MED LIST changes: +ARTIDRO OU; +EYEL1MED TOP; +OCEA0.654; +PROL60SO SC; +SUCR1ORA PO; +TRUL10IN SC
[2020-07-14 08:33] LABS: CALCIUM LEVEL 8.6 MG/DL (8.8-10.2); CREATININE FOR GFR 1.69 MG/DL (0.55-1.30); GLOMERULAR FILTRATION RATE 38.8 (>45); POTASSIUM SERUM 3.8 MEQ/L (3.5-5.1)
== END ==
LOC: SKLAB2 15:03
DX: I50.9 Heart failure, unspecified (principal)

== ENCOUNTER → 2020-07-16 | Outpatient (REF) | payer MEDICARE, MEDICAID ==
[~2020-07-16] MED LIST changes: -SUCR1ORA PO
[2020-07-16 12:19] LABS: HEMATOCRIT 23.8 % (36.0-47.0); MEAN CORPUSCULAR HEMOGLOBIN 29.9 pg (27.0-33.0); PLATELET COUNT, AUTOMATED 202 10^3/uL (150-450); RED BLOOD COUNT 2.31 10^6/uL (4.00-5.40); WHITE BLOOD COUNT 6.3 10^3/uL (4.0-10.0)
[2020-07-16 12:23] LABS: HEMOGLOBIN 6.9 g/dl (12.0-15.5)
[2020-07-16 12:39] LABS: CALCIUM LEVEL 8.4 MG/DL (8.8-10.2); CREATININE FOR GFR 1.55 MG/DL (0.55-1.30); GLOMERULAR FILTRATION RATE 42.9 (>45); POTASSIUM SERUM 3.6 MEQ/L (3.5-5.1)
== END ==
LOC: SKLAB2 07:28
DX: I50.9 Heart failure, unspecified (principal); D64.9 Anemia, unspecified

== ENCOUNTER 2020-07-17 10:39 | Outpatient (CLI) | payer MEDICARE, MEDICAID ==
[~2020-07-17 10:39] MED LIST changes: -ARTIDRO OU; -EYEL1MED TOP; +FUROSEMIDE 40MG/4ML VIAL (J1940) IV SCH; -OCEA0.654; -PROL60SO SC; -SUCR1ORA PO; -TRUL10IN SC
[2020-07-17 11:29] VITALS: BP 142/78
[2020-07-17 12:30] VITALS: BP 126/60
[2020-07-17 13:30] VITALS: BP 128/68
[2020-07-17 14:14] VITALS: BP 153/72
[2020-07-17 14:46] VITALS: BP 132/68
[2020-07-18] MEDS ORDERED: EYEL1MED TOP (20:55)
[2020-07-18] MEDS ORDERED: ARTIDRO OU (20:55)
[2020-07-18] MEDS ORDERED: TORS20TA2 PO (20:55)
[2020-07-18] MEDS ORDERED: PROL60SO SC (20:55)
[2020-07-18] MEDS ORDERED: OCEA0.654 (21:04)
[2020-07-18] MEDS ORDERED: VOLT1GEL15 TOP (21:04)
[2020-07-18] MEDS ORDERED: ASPI81TA26 PO (21:04)
[2020-07-18] MEDS ORDERED: TRUL10IN SC (21:04)
== END 2020-07-17 14:46 | disposition home or self-care (01) ==
LOC: M INFU 10:39
PROVIDERS: ATTEND Nurse Practitioner
DX: D64.9 Anemia, unspecified (principal); I50.9 Heart failure, unspecified; Z88.2 Allergy status to sulfonamides; Z88.8 Allergy status to other drugs, medicaments and biological substances

== ENCOUNTER → 2020-07-17 | Outpatient (REF) | payer MEDICARE, MEDICAID ==
[~2020-07-17] MED LIST changes: +SUCR1ORA PO
[2020-07-17 09:29] LABS: HEMATOCRIT 25.5 % (36.0-47.0); HEMOGLOBIN 7.2 g/dl (12.0-15.5); MEAN CORPUSCULAR HEMOGLOBIN 29.3 pg (27.0-33.0); MEAN CORPUSCULAR HGB CONC 28.2 g/dl (32.0-36.5); MEAN CORPUSCULAR VOLUME 103.7 fl (80.0-96.0); PLATELET COUNT, AUTOMATED 223 10^3/uL (150-450); RED BLOOD COUNT 2.46 10^6/uL (4.00-5.40); WHITE BLOOD COUNT 7.5 10^3/uL (4.0-10.0)
[2020-07-17 09:38] LABS: BILIRUBIN,TOTAL 0.6 MG/DL (0.2-1.0); CALCIUM LEVEL 8.4 MG/DL (8.8-10.2); CREATININE FOR GFR 1.51 MG/DL (0.55-1.30); GLOMERULAR FILTRATION RATE 44.2 (>45); PERCENT SATURATION 16.3 % (13.2-45.0); POTASSIUM SERUM 3.7 MEQ/L (3.5-5.1); TOTAL PROTEIN 7.8 GM/DL (6.4-8.2)
[2020-07-17 10:15] LABS: HEMOGLOBIN A1c 5.8 %
== END ==
LOC: SKLAB2 15:03
DX: E11.9 Type 2 diabetes mellitus without complications (principal); D64.9 Anemia, unspecified; I10 Essential (primary) hypertension

== ENCOUNTER 2020-07-18 08:49 | Outpatient (CLI) | payer MEDICARE, MEDICAID ==
[~2020-07-18] VITALS: Ht 157.5 cm; Wt 117.0 kg
[~2020-07-18 08:49] MED LIST changes: -FUROSEMIDE 40MG/4ML VIAL (J1940) IV SCH
[2020-07-18] MEDS ORDERED: FUROSEMIDE 100MG/10ML VIAL (J1940) IV SCH (09:00)
[2020-07-18 09:02] VITALS: BP 134/63
[2020-07-18 09:20] VITALS: BP 136/68
[2020-07-18 10:30] VITALS: BP 135/74
[2020-07-18 12:10] VITALS: BP 134/62
[2020-07-18] MEDS ORDERED: PROL60SO SC (20:55)
[2020-07-18] MEDS ORDERED: TORS20TA2 PO (20:55)
[2020-07-18] MEDS ORDERED: EYEL1MED TOP (20:55)
[2020-07-18] MEDS ORDERED: ARTIDRO OU (20:55)
[2020-07-18] MEDS ORDERED: TRUL10IN SC (21:04)
[2020-07-18] MEDS ORDERED: OCEA0.654 (21:04)
[2020-07-18] MEDS ORDERED: VOLT1GEL15 TOP (21:04)
[2020-07-18] MEDS ORDERED: ASPI81TA26 PO (21:04)
== END 2020-07-18 12:32 | disposition home or self-care (01) ==
LOC: M INFU 08:49
PROVIDERS: ATTEND Nurse Practitioner
DX: D64.9 Anemia, unspecified (principal); Z88.1 Allergy status to other antibiotic agents; Z88.2 Allergy status to sulfonamides; Z88.8 Allergy status to other drugs, medicaments and biological substances

== ENCOUNTER 2020-07-18 15:22 | Inpatient (IN) | payer MEDICARE, MEDICAID ==
[~2020-07-18] VITALS: Ht 157.5 cm; Wt 120.2 kg
[2020-07-18] MEDS ORDERED: NULYTELY SOLN 4000ML BTL PO ONE (16:45)
[2020-07-18 17:40] VITALS: BP 156/70
[2020-07-18 18:34] LABS: HEMATOCRIT 26.3 % (36.0-47.0); HEMOGLOBIN 7.8 g/dl (12.0-15.5); MEAN CORPUSCULAR HEMOGLOBIN 28.8 pg (27.0-33.0); MEAN CORPUSCULAR HGB CONC 29.7 g/dl (32.0-36.5); PLATELET COUNT, AUTOMATED 199 10^3/uL (150-450); RED BLOOD COUNT 2.71 10^6/uL (4.00-5.40)
[2020-07-18 18:49] LABS: INR 1.5; PROTHROMBIN TIME 18.4 SECONDS (12.5-14.3)
[2020-07-18 18:50] LABS: PARTIAL THROMBOPLASTIN TIME 33.5 SECONDS (24.2-38.5)
[2020-07-18 18:56] LABS: PERCENT SATURATION 26.5 % (13.2-45.0)
--- NOTE | 2020-07-18 19:01 | REP ---
INDICATION: SOB. COMPARISON: Comparison chest x-ray June 02, 2020. TECHNIQUE: AP sitting and lateral views... FINDINGS: The lungs are exposed at a low level of inspiration. There appears to blunting of the left lateral pleural angle. The AP views obtained at a somewhat lordotic angle. Abdominal skin folds overlie the lung bases. Heart appears to be enlarged unchanged. Pulmonary vasculature is felt to be cephalized and somewhat congested. No definite focal infiltrate. IMPRESSION: Less than optimal radiographs. Probable left pleural angle blunting. Cardiomegaly. Vascular congestion.. <Electronically signed by Thomas Florentino > 07/18/20 [id number]
[2020-07-18] MEDS ORDERED: GLUCAGON INJ 1MG VIAL SC PRN (19:10)
[2020-07-18] MEDS ORDERED: GLUCOSE 4GM CHEW TABLET PO PRN (19:10)
[2020-07-18 19:17] LABS: ALBUMIN 2.9 GM/DL (3.2-5.2); CREATININE FOR GFR 1.52 MG/DL (0.55-1.30); GLOMERULAR FILTRATION RATE 43.9 (>45); POTASSIUM SERUM 3.5 MEQ/L (3.5-5.1); TOTAL PROTEIN 7.5 GM/DL (6.4-8.2)
--- NOTE | 2020-07-18 19:21 | HPEPDOC ---
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 Anemia of chronic disease, GI bleed, diverticulosis, unclear history of seizures, has been off Dilantin. Breast cancer with mastectomy 2013. Glaucoma directly admitted to the hospitalist service Per GI request for evaluation of symptomatic anemia, hemoglobin of 7 for possible GI bleed. Patient complains of bright red blood per rectum for several days. 2 weeks with complaints of shortness of breath, weakness without chest pain, pressure, tightness, palpitations, lightheadedness, dizziness, near syncope or syncopal episode at the [facility]. She denied any nausea, vomiting, abdominal pain, black tarry stools, hematemesis. She denies any fever, chills, dysphagia, odynophagia, sore throat, changes in appetite, dysuria, urgency, frequency. Hospitalist was asked to admit the patient for evaluation of severe symptomatic anemia with acute blood loss secondary to br ight red blood per rectum and with acute GI bleed in the setting of chronic anticoagulation. 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 Anemia of chronic disease, GI bleed, diverticulosis, unclear history of seizures, has been off Dilantin. Breast cancer with mastectomy 2013. Glaucoma Morbid obesity, type 2 diabetes PAST SURGICAL HISTORY: Hysterectomy, left breast biopsy, left breast cystectomy, right sided [id number] placed August 2017 removed 2019 SOCIAL HISTORY: [facility] resident. Denies alcohol use disabled, wheelchair bound FAMILY HISTORY: Patient does not know her family history. ALLERGIES: Please see below. REVIEW OF SYSTEMS: 10 point review of systems negative aside from positive findings in HPI HOME MEDICATIONS: Please see below. PHYSICAL EXAMINATION: VITAL SIGNS: See below GENERAL APPEARANCE: No respiratory distress No conversational dyspnea. No icterus or jaundice. Pale HEENT: Extra muscles intact. Moist mucous membranes. Pupils equally round, reactive to light and accommodation No JVD, thyromegaly, cervical lymphadenopathy, stridor, or carotid bruit CARDIOVASCULAR: S1, S2, regular rate, rhythm. No murmurs noted LUNGS: No wheezing or rales. Air entry is equal bilaterally. Left breast mastectomy ABDOMEN: Obese, nontender, nondistended, positive bowel sounds. No rebound or guarding EXTREMITIES: 2+ pitting edema NEURO: Awake, alert, oriented to person, place, but disoriented to time. Left- sided weakness. Gait not tested LABORATORY DATA: See below. IMAGING: See below MICROBIOLOGY: Please see below. 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 Anemia of chronic dis ease, GI bleed, diverticulosis, unclear history of seizures, has been off Dilantin. Breast cancer with mastectomy 2013. Glaucoma directly admitted to the hospitalist service Per GI request for evaluation of symptomatic anemia, hemoglobin of 7 for possible GI bleed. Symptomatic anemia Acute blood loss anemia Acute GI bleed History of CVA, with chronic left-sided weakness on chronic anticoagulation COPD Chronic kidney disease stage II Diastolic heart failure with preserved systolic function. Ejection fraction 65% Hypertension Obstructive sleep apnea on 2 L home oxygen at night Pulmonary hypertension CAD Pulmonary sarcoidosis History of breast cancer status post mastectomy Morbid obesity Diabetes type 2 Chronic atrial fibrillation Gastroesophageal reflux disease Hypothyroidism Osteoporosis Chronic pain PLAN: Patient will be admitted to medical surgical floor. Nothing by mouth for colono scopy in the morning. GI has been consulted. Gentle use of IV fluids while nothing by mouth. Hold anticoagulation due to recent blood loss. , Transfuse 3 units RBCs . After checking for Hemoccult stool, iron studies, reticulocyte count, peripheral blood smear and hemoglobin electrophoresis. Hold an tiplatelets. Resume all other medications with holding parameters for blood pressure less than 110 mmhg. compression stockings. Monitor strict I's and O's, daily weights. Resume home inhalers. Avoid nephrotoxins and renally dose all medications. Hypoglycemic protocol while nothing by mouth. Laboratory Data Labs 24H Laboratory Tests 2 07/18/20 18:15: Reticulocyte # (auto) 84.2H, Percent Reticulocyte Count 3.0H, Reticulocyte Hemoglobin Equivalent 27.3 07/18/20 18:17: Nucleated Red Blood Cells % (auto) 0.0 CBC/BMP Laboratory Tests 07/18/20 18:17 Home Medications Scheduled Acetaminophen (Acetaminophen 8 Hour) 650 Mg Tablet.er, 650 MG PO BID Apixaban (Eliquis) 5 Mg Tablet, 5 MG PO BID Ascorbic Acid (Vitamin C) 500 Mg Capsule, 500 MG PO DAILY Aspirin (Aspirin) 325 Mg Tab, 325 MG PO DAILY Bimatoprost (Lumigan) 0.01% 2.5ML Drops, 1 DROP OU DAILY Brimonidine Tartrate (Brimonidine Tartrate) 100 Drop/5 Ml Soln, 1 DROP OU BID 1400 AND 2100 Diclofenac Sodium (Voltaren) 100 Gm Gel..gram., 1 APPLIC TOP BID knees wrists neck and shoulders Docusate Sodium (Colace) 100 Mg Capsule, 100 MG PO DAILY Empagliflozin (Jardiance) 10 Mg Tablet, 10 MG PO DAILY Ferrous Sulfate (Ferrous Sulfate) 325 Mg Tablet, 325 MG PO DAILY Insulin Glargine (Lantus) 100 Unit/1 Ml Vial, 55 UNITS SC QHS Insulin Human Lispro (Humalog) 1 Units/0.01 Ml Inj, 1 DOSE SC BID PER SLIDING SCALE 0730/1700 Levothyroxine Sodium (Levothyroxine Sodium) 137 Mcg Tablet, 137 MCG PO QAM Metoprolol Tartrate (Metoprolol Tartrate) 50 Mg Tablet, 50 MG PO BID Multivitamins (Thera M Plus Tablet) 1 Tab Tab, 1 TAB PO DAILY Polyethylene Glycol 3350 (Miralax) 1 Pow Pow, 17 GM PO DAILY Psyllium Husk (Psyllium Husk) 1 Gm Powder, 1 DOSE PO QHS Quetiapine Fumarate (Quetiapine Fumarate) 50 Mg Tablet, 50 MG PO DAILY Rosuvastatin Calcium (Rosuvastatin Calcium) 20 Mg Tab, 20 MG PO QHS Sennosides (Senokot) 8.6 Mg Tablet, 1 TAB PO DAILY Sodium Chloride (Saline Nasal Arlington) 44 Ml Arlington, 2 SPRAY NARES QHS Torsemide (Torsemide) 20 Mg Tablet, 20 MG PO BID@09,17 Take 1 Tablet Twice a Day Umeclidinium Brm/Vilanterol Tr (Anoro Ellipta 62.5-25 Mcg INH) 1 Each Blst.w.dev, 1 PUFF PO DAILY Scheduled PRN Acetaminophen (Acetaminophen) 650 Mg Supp.rect, [address] Q4H PRN for PAIN / FEVER Acetaminophen (Acetaminophen ER) 650 Mg Tablet.er, 650 MG PO Q8H PRN for PAIN Bisacodyl (Bisacodyl) 10 Mg Sup, [address] DAILY PRN for CONSTIPATION Glucagon,Human Recombinant (Glucagon Emergency Kit) 1 Mg Kit, 1 MG IM ASDIRECTED PRN for LOW BLOOD SUGAR Hydrocodone/Acetaminophen (Hydrocodone-Acetamin 5-325 mg) 1 Each Tablet, 1 TAB PO BID PRN for PAIN Ipratropium/Albuterol Sulfate (Iprat-Albut 0.5-3(2.5) mg/3 ml) 3 Ml Ampul.neb, 1 VIAL NEB Q6H PRN for chest pain Milk Of Magnesia (Milk of Magnesia) 2,400 Mg/10 Ml Oral.susp, 10 ML PO DAILY PRN for CONSTIPATION Phenol (Chloraseptic) 20 Ml [place], 1 SPRAY PO Q4H PRN for SORE THROAT Sodium Phosphate,Atl[place]-Dibasic (Enema Ready To Use) 1 Debby Debby, [address] DAILY PRN for CONSTIPATION guaiFENesin (Cough Syrup) 100 Mg/5 Ml Liquid, 5 ML PO Q4H PRN for COUGH Allergies Coded Allergies: Sulfa (Sulfonamide Antibiotics) (Verified Allergy, Unknown, 06/30/18) atorvastatin (Verified Allergy, Unknown, 06/30/18) baclofen (Verified Allergy, Unknown, 06/30/18) clindamycin (Verified Allergy, Unknown, 06/30/18) duloxetine (Verified Allergy, Unknown, 06/30/18) levetiracetam (Verified Allergy, Unknown, 06/30/18) lisinopril (Verified Allergy, Unknown, 06/30/18) topiramate (Verified Allergy, Unknown, 06/30/18) tramadol (Verified Allergy, Unknown, 06/30/18) A-FIB/CHADSVASC A-FIB History Current/History of A-Fib/PAF?: Yes Current PO Anticoag Therapy: Yes Age/Risk Factor Scoring CHADSVASC: CHADSVASC Response (Comments) Value Gender Risk Factor Female 1 Hx of CHF Yes 1 Hx of HTN Yes 1 Hx of Stroke/TIA/or VTE Yes 2 Hx of Diabetes Yes 1 Hx of Vascular Disease No 0 Total 6 Treatment Treatment ordered: NONE Reason Anticoagulant not given: Current bleeding RODRIGUE COTTO MD Jul 18, 2020 18:48
[2020-07-18] MEDS ORDERED: BISACODYL 5 MG TAB PO ONE (20:00)
[2020-07-18] MEDS ORDERED: FUROSEMIDE 100MG/10ML VIAL (J1940) IV ONE (20:00)
[2020-07-18] MEDS ORDERED: PROL60SO SC (20:55)
[2020-07-18] MEDS ORDERED: ARTIDRO OU (20:55)
[2020-07-18] MEDS ORDERED: TORS20TA2 PO (20:55)
[2020-07-18] MEDS ORDERED: EYEL1MED TOP (20:55)
[2020-07-18] MEDS: HumaLOG INSULIN (NovoLOG) PER UNIT SC SCH (21:00)
[2020-07-18] MEDS ORDERED: TRUL10IN SC (21:04)
[2020-07-18] MEDS ORDERED: VOLT1GEL15 TOP (21:04)
[2020-07-18] MEDS ORDERED: ASPI81TA26 PO (21:04)
[2020-07-18] MEDS ORDERED: OCEA0.654 (21:04)
[2020-07-18 21:33] LABS: CK-MB VALUE MASS 2.3 NG/ML (<3.6); MB/CK RELATIVE INDEX 1.33 (< OR =4); TROPONIN I 0.07 NG/ML (< 0.10)
[2020-07-18] MEDS: TORSEMIDE 20 MG TAB PO SCH (21:38)
[2020-07-18] MEDS: METOPROLOL TART 50 MG TAB PO SCH (21:39)
[2020-07-18 22:00] VITALS: BP 153/71
[2020-07-18 22:38] VITALS: BP 58/29
[2020-07-18 22:42] VITALS: BP 172/68
[2020-07-18] MEDS: ONDANSETRON 4 MG TAB PO SCH (23:22)
[2020-07-18] MEDS ORDERED: LIDOCAINE 5% (LIDODERM) PATCH TD ONE (23:30)
[2020-07-19] VITALS (14 sets, daily range): BP systolic 128–167; BP diastolic 58–85
[2020-07-19] MEDS ORDERED: PHYTONADIONE 10MG/ML INJECTION (J3430) SC ONE (00:20)
--- NOTE | 2020-07-19 00:21 | ECGEPIP ---
[facility] Test Date: 2020-07-18 Pat Name: DEE DEE SCHULTZ Department: Room: [place] [address] Gender: Female Laster Hand: tara : 1950 Requested By: RODRIGUE Hyman Order Number: [id number] Reading MD: Ilir Luis Measurements Intervals [place] Rate: 55 P: OK: QRS: 65 QRSD: 80 T: 211 QT: 458 QTc: 438 Interpretive Statements Poor data quality, interpretation may be adversely affected Atrial fibrillation with slow ventricular response ST & T wave abnormality, consider inferolateral ischemia Last tracing on 06/02/20 at 1:08. No remarkable changes Electronically Signed on 07-19-2020 0:21:16 EDT by Ilir Luis
[2020-07-19 00:30] LABS: HEMATOCRIT 28.7 % (36.0-47.0); HEMOGLOBIN 8.4 g/dl (12.0-15.5)
[2020-07-19] MEDS: ONDANSETRON 4 MG TAB PO SCH (05:19)
[2020-07-19] MEDS: LEVOTHYROXINE 137MCG TABLET (0.137MG) PO SCH (05:23)
[2020-07-19 07:01] LABS: HEMATOCRIT 26.2 % (36.0-47.0); HEMOGLOBIN 7.7 g/dl (12.0-15.5); MEAN CORPUSCULAR HEMOGLOBIN 29.4 pg (27.0-33.0); MEAN CORPUSCULAR HGB CONC 29.4 g/dl (32.0-36.5); PLATELET COUNT, AUTOMATED 185 10^3/uL (150-450); RED BLOOD COUNT 2.62 10^6/uL (4.00-5.40); WHITE BLOOD COUNT 5.6 10^3/uL (4.0-10.0)
[2020-07-19] MEDS: HumaLOG INSULIN (NovoLOG) PER UNIT SC SCH ×4 (07:30→21:00)
[2020-07-19 07:42] LABS: CALCIUM LEVEL 8.4 MG/DL (8.8-10.2); CHOLESTEROL RISK RATIO 1.756 (<5); CREATININE FOR GFR 1.39 MG/DL (0.55-1.30); GLOMERULAR FILTRATION RATE 48.6 (>45); POTASSIUM SERUM 3.5 MEQ/L (3.5-5.1); THYROID STIMULATING HORMONE 0.887 uIU/ML (0.358-3.740)
[2020-07-19] MEDS: TORSEMIDE 20 MG TAB PO SCH ×2 (08:02→18:35)
[2020-07-19] MEDS: METOPROLOL TART 50 MG TAB PO SCH ×2 (08:02→21:00)
[2020-07-19] MEDS: DEXTROSE 50% 50 ML SYRINGE IV PRN ×2 (08:03→11:35)
[2020-07-19] MEDS ORDERED: ONDANSETRON 4MG/2ML VIAL IV PRN (08:15)
[2020-07-19] MEDS ORDERED: LIDOCAINE 1% MDV 20ML VIAL As Ordered ONE (09:30)
[2020-07-19] MEDS ORDERED: FLEET ENEMA PR STA (11:26)
[2020-07-19] MEDS ORDERED: **NOTE PATIENT COMMENT** MISC XX ONE (11:30)
[2020-07-19] MEDS ORDERED: LIDOCAINE 2% 100MG/5ML SDV (FOR ANES.) As Ordered ONE ×2 (12:58→16:28)
[2020-07-19] MEDS ORDERED: propofoL 200 MG/20 ML VIAL As Ordered ONE ×2 (12:58→16:28)
--- NOTE | 2020-07-19 13:18 | ROOR ---
Patient Name: Jeannette Cooney Procedure Date: 07/19/2020 12:50 PM Date of : 1950 Age: 69 Room: [facility] Gender: Female Note Status: Finalized Procedure: Upper GI endoscopy Indications: Acute post hemorrhagic anemia, Iron deficiency anemia secondary to chronic blood loss Providers: Arcenio Bautista MD Referring MD: 2. Inpatient 2. Inpatient Requesting Provider: Medicines: Monitored Anesthesia Care Complications: No immediate complications. Procedure: Pre-Anesthesia Assessment: - Prior to the procedure, a History and Physical was performed, and patient medications and allergies were reviewed. The patient is competent. The risks and benefits of the procedure and the sedation options and risks were discussed with the patient. All questions were answered and informed consent was obtained. Patient identification and proposed procedure were verified by the physician, the nurse and the anesthesiologist in the procedure room. Mental Status Examination: alert and oriented. Airway Examination: normal oropharyngeal airway and neck mobility. Respiratory Examination: clear to auscultation. CV Examination: normal. Prophylactic Antibiotics: The patient does not require prophylactic antibiotics. Prior Anticoagulants: The patient has taken no previous anticoagulant or antiplatelet agents. ASA Grade Assessment: II - A patient with mild systemic disease. After reviewing the risks and benefits, the patient was deemed in satisfactory condition to undergo the procedure. The anesthesia plan was to use monitored anesthesia care (MAC). Immediately prior to administration of medications, the patient was re-assessed for adequacy to receive sedatives. The heart rate, respiratory rate, oxygen saturations, blood pressure, adequacy of pulmonary ventilation, and response to care were monitored throughout the procedure. The physical status of the patient was re-assessed after the procedure. The Endoscope was introduced through the mouth, and advanced to the second part of duodenum. The upper GI endoscopy was accomplished without difficulty. The patient tolerated the procedure well. Findings: LA Grade B (one or more mucosal breaks greater than 5 mm, not extending between the tops of two mucosal folds) esophagitis with no bleeding was found in the distal esophagus. Two non-bleeding superficial gastric ulcers with a clean ulcer base (Diaz Class III) were found in the gastric antrum. The largest lesion was 10 mm in largest dimension. The duodenal bulb and second portion of the duodenum were normal. Impression: - LA Grade B reflux esophagitis. - Non-bleeding gastric ulcers with a clean ulcer base (Diaz Class III). - Normal duodenal bulb and second portion of the duodenum. - No specimens collected. Recommendation: - Patient has a contact number available for emergencies. The signs and symptoms of potential delayed complications were discussed with the patient. Return to normal activities tomorrow. Written discharge instructions were provided to the patient. - Clear liquid diet for 1 day, then advance as tolerated to NPO. - Use Protonix (pantoprazole) 40 mg PO twice daily - to be taken in morning (1/2 hour before breakfast) and at bedtime ( atleast 3 hours after last meal) for 8 weeks. - Observe patient's clinical course. - Return patient to [facility] for ongoing care. - Follow an antireflux regimen. - Refer to an ENT specialist at the next available appointment. - Do a GI bleeding (tagged RBC) scan. - Refer to an interventional radiologist if symptoms persist. - Return to primary care physician. Procedure Code(s): --- Professional --- 94261, Esophagogastroduodenoscopy, flexible, transoral; diagnostic, including collection of specimen(s) by brushing or washing, when performed (separate procedure) Diagnosis Code(s): --- Professional --- K21.0, Gastro-esophageal reflux disease with esophagitis K25.9, Gastric ulcer, unspecified as acute or chronic, without hemorrhage or perforation D62, Acute posthemorrhagic anemia D50.0, Iron deficiency anemia secondary to blood loss (chronic) CPT copyright 2019 [employer]. All rights reserved. The codes documented in this report are preliminary and upon scan coordinator review may be revised to meet current compliance requirements. Arcenio Bautista MD Arcenio Bautista MD 07/19/2020 1:18:22 PM Electronically signed by Arcenio Bautista MD Number of Addenda: 0 Note Initiated On: 07/19/2020 12:50 PM Estimated Blood Loss: Estimated blood loss was minimal.
--- NOTE | 2020-07-19 14:01 | IPNPDOC ---
Date Seen The patient was seen on 07/19/20. Progress Note addendum to progress note: ASSESSMENT: Epistaxis in the setting of chronic eliquis for CVA w left sided weakness Chronic Atrial Fibrillation Esophagitis on EGD 07/19/20 Dr. Bautista Nonbleeding Gastric Ulcers on EGD 07/19/20 Dr. Bautista Acute on Chronic Hypoxic Respiratory Failure on 2L home 02 Diastolic CHF EF 65% Severe Pulmonary Hypertension Pulmonary sarcoidosis PLAN: -Per GI, Dr. Bautista, pt had epistaxis and blood clots trickling down pt's throat at home, and EGD findings of esophagitis and nonbleeding gastric ulcers may not be the only etiology of pt's acute blood loss. Thereby recommending ENT consult to further evaluate. -ENT. Dr. Becker, consulted -recheck CXR portable due to c/o sob, lasix 80mg iv after rbc transfusion, and protonix 40 mg iv bid. -Due to history of CVA with chronic Afib, pt is at risk of recurrent CVA off anticoagulation, but with ongoing blood loss, eliquis needs to be discontinued for 5days until sources of bleeding have been stabilized. -may consider using heparin iv gtt once etiology of bleed have been stabilized prior to restarting po eliquis to make it easier to stop anticoagulation should she have ongoing blood loss. -transfer to PCU due to ongoing blood loss, worsening respiratory distress, persistent hemoptysis, recent epistaxis. VS, I&O, 24H, [facility] Vital Signs/I&O Vital Signs Date Time Temp Pulse Resp B/P (MAP) Pulse Ox O2 Delivery O2 Flow Rate FiO2 07/19/20 13:17 96.9 60 18 144/65 (91) 99 Room Air 07/19/20 11:56 2.0 I&O- Last 24 Hours up to 6 AM 07/19/20 06:00 Intake Total 1040 ml Balance 1040 ml Laboratory Data 24H LABS Laboratory Tests 2 07/18/20 18:15: Reticulocyte # (auto) 84.2H, Differential Slide Review Report, Peripheral Blood Smear Path Consult PERIPHERAL SMEAR, Percent Reticulocyte Count 3.0H, Reticulocyte Hemoglobin Equivalent 27.3, Prothrombin Time 18.4H, Prothromb Time International Ratio 1.50, Activated Partial Thromboplast Time 33.5, Fibrinogen 419, Anion Gap 4L, Glomerular Filtration Rate 43.9L, Calcium Level 9.0, Iron Le glenn 76, Total Iron Binding Capacity 287, Transferrin % Saturation 26.5, Ferritin 147, Total Bilirubin 1.0#, Aspartate Amino Transf (AST/SGOT) 20, Alanine Aminotransferase (ALT/SGPT) 16, Alkaline Phosphatase 149H, Lactate Dehydrogenase 390H, Total Creatine Kinase 173, Creatine Kinase MB 2.3, Creatine Kinase MB Relative Index 1.33, Troponin I 0.07, Total Protein 7.5, Albumin 2.9L, Albumin/Globulin Ratio 0.6L 07/18/20 18:17: Nucleated Red Blood Cells % (auto) 0.0 07/18/20 20:14: Bedside Glucose (Misc Panel) 59L 07/18/20 20:45: Bedside Glucose (Misc Panel) 64L 07/18/20 21:01: Bedside Glucose Confirm (Misc) 70 07/19/20 06:12: Nucleated Red Blood Cells % (auto) 0.0, Anion Gap 5L, Glomerular Filtration Rate 48.6, Calcium Level 8.4L, Triglycerides Level 71, Total Cholesterol 72, LDL Cholesterol 17, Non-HDL Cholesterol (LDL + VLDL) 31, Total HDL Cholesterol 41, Cholesterol/HDL Ratio 1.756, Thyroid Stimulating Hormone (TSH) 0.887 07/19/20 08:47: Bedside Glucose (Misc Panel) 80 07/19/20 11:20: Bedside Glucose (Misc Panel) 55L 07/19/20 11:54: Bedside Glucose (Misc Panel) 110 CBC/BMP Laboratory Tests 07/18/20 18:15 07/18/20 18:17 07/18/20 23:56 07/19/20 06:12 Microbiology Microbiology 07/19/20 Respiratory Virus Panel (PCR) (EREN) - Final, Complete 07/19/20 Stool Occult Blood (EREN) - Final, Complete RODRIGUE COTTO MD Jul 19, 2020 13:58
[2020-07-19] MEDS: PANTOPRAZOLE 40MG VIAL (C9113 PER 1) IV SCH ×2 (14:35→21:04)
--- NOTE | 2020-07-19 14:37 | REP ---
INDICATION: sob. COMPARISON: 07/18/2020. TECHNIQUE: SINGLE PORTABLE AP VIEW OF THE CHEST WAS PERFORMED. FINDINGS: Cardiomegaly is again noted as well as vascular congestion. Mild bibasilar infiltrates are present, similar to prior studies. The mediastinal silhouette is unchanged. There is a right arm PICC line with the tip in the central right subclavian vein. IMPRESSION: Cardiomegaly, vascular congestion and mild bibasilar infiltrate. <Electronically signed by Bello Alas > 07/19/20 2051
[2020-07-19] MEDS ORDERED: METHYLENE BLUE 0.5% (5MG/ML) 10 ML AMP (PROVAYBLUE) As Ordered ONE (15:48)
[2020-07-19] MEDS ORDERED: BACITRACIN OINTMENT 30GM TUBE As Ordered ONE (15:48)
[2020-07-19] MEDS ORDERED: SILVER NITRATE APPLICATOR As Ordered ONE (15:48)
[2020-07-19] MEDS ORDERED: EPINEPHrine 1MG/ML INJ 30ML MD-VIAL As Ordered ONE (15:49)
[2020-07-19] MEDS ORDERED: OXYMETAZOLINE 0.05% NASAL SPRAY (AFRIN) As Ordered ONE (16:08)
[2020-07-19] MEDS ORDERED: ROCURONIUM BROMIDE 50 MG/5 ML VIAL As Ordered ONE (16:28)
[2020-07-19] MEDS ORDERED: MIDAZOLAM INJ 2MG/2ML VIAL (J2250 PER 1MG) As Ordered ONE (16:28)
[2020-07-19] MEDS ORDERED: fentaNYL 100 MCG/2 ML INJECTION (J3010) As Ordered ONE (16:28)
--- NOTE | 2020-07-19 16:44 | REP ---
PROCEDURE NAME: PICC LINE INSERTION W/SITERITE CLINICAL INFORMATION: poor iv access. COMPARISON: None. PROCEDURE DESCRIPTION: The procedure was performed by ETIENNE Bobby, under the direct supervision of Dr. Alas. The risks and benefits of the procedure were explained to the patient and an informed consent was obtained both verbally and written. Directly prior to the start of the procedure a formal time-out was completed in the procedure room. The right medial brachial vein was localized using ultrasound guidance. The skin was prepped and draped in sterile fashion. Two mL of 1% lidocaine 10 mg/mL was used as a local anesthetic. Using ultrasound guidance the right medial brachial vein was cannulated, and a 0.018 guidewire was inserted and advanced to the level of the proximal subclavian vein using fluoroscopic guidance. The needle was removed and a 5.5 Monegasque dilator and peel-away sheath was inserted over the guidewire. A 5.5 Monegasque dual lumen catheter was cut to a length of 35 cm. The dilator was removed and the catheter was inserted over the guidewire with the tip ending at the level of the proximal subclavian vein. The peel-away sheath was removed and the catheter was flushed with heparinized saline as per hospital protocol. The catheter was affixed to the skin and a sterile dressing was applied. The patient tolerated the procedure well and there were no immediate complications. CONCLUSION: PICC line insertion into the right medial brachial vein. 1.2 minutes of fluoroscopy time was utilized for this procedure. Some fluoroscopic images are performed with last image hold technology. These images require no additional radiation. <Electronically signed by Laura Sim > 07/19/20 1243 <Electronically signed by Bello Alas > 07/19/20 1640
[2020-07-19] MEDS ORDERED: LIDOCAINE 4% TOPICAL SOLN 50 ML BTL As Ordered ONE (17:25)
[2020-07-19 18:19] LABS: HEMOGLOBIN A1c 5.8 %
[2020-07-19] MEDS: SODIUM CHLORIDE 0.9% INJ 10 ML SYR IV SCH (18:36)
[2020-07-20] VITALS: BP 135/78
[2020-07-20 04:00] VITALS: BP 132/61
[2020-07-20] MEDS: LEVOTHYROXINE 137MCG TABLET (0.137MG) PO SCH (06:09)
[2020-07-20] MEDS: SODIUM CHLORIDE 0.9% INJ 10 ML SYR IV SCH ×2 (06:09→18:42)
[2020-07-20 06:32] LABS: HEMATOCRIT 34.9 % (36.0-47.0); MEAN CORPUSCULAR HEMOGLOBIN 28.5 pg (27.0-33.0); MEAN CORPUSCULAR HGB CONC 29.5 g/dl (32.0-36.5); MEAN CORPUSCULAR VOLUME 96.7 fl (80.0-96.0); PLATELET COUNT, AUTOMATED 183 10^3/uL (150-450); RED BLOOD COUNT 3.61 10^6/uL (4.00-5.40); WHITE BLOOD COUNT 6.1 10^3/uL (4.0-10.0)
[2020-07-20 06:50] LABS: HEMOGLOBIN 10.3 g/dl (12.0-15.5)
[2020-07-20 06:52] LABS: CALCIUM LEVEL 8.5 MG/DL (8.8-10.2); CREATININE FOR GFR 1.4 MG/DL (0.55-1.30); GLOMERULAR FILTRATION RATE 48.2 (>45); POTASSIUM SERUM 3.4 MEQ/L (3.5-5.1)
[2020-07-20] MEDS: HumaLOG INSULIN (NovoLOG) PER UNIT SC SCH ×4 (07:30→20:53)
[2020-07-20] MEDS ORDERED: CEPACOL LOZENGE PO PRN (07:45)
--- NOTE | 2020-07-20 07:58 | IPNPDOC ---
Date Seen The patient was seen on 07/20/20. Progress Note S: denies epistaxis, hemoptysis, brbpr, hematemesis, melena. no c/o dizziness. still slight sob. no fever or chills. occ cough sputum blood tinged. duncan at baseline does not ambulate ): PHYSICAL EXAMINATION: VITAL SIGNS: See below GENERAL APPEARANCE: No respiratory distress No conversational dyspnea. No icterus or jaundice. HEENT: Extra muscles intact. Moist mucous membranes. Pupils equally round, reactive to light and accommodation No JVD, thyromegaly, cervical lymphadenopathy, stridor, or carotid bruit CARDIOVASCULAR: S1, S2, regular rate, rhythm. No murmurs noted LUNGS: No wheezing or rales. Air entry is equal bilaterally. Left breast mastectomy ABDOMEN: Obese, nontender, nondistended, positive bowel sounds. No rebound or guarding EXTREMITIES: 2+ pitting edema NEURO: Awake, alert, oriented to person, place, but disoriented to time. Left- sided weakness. Gait not tested LABORATORY DATA: See below. IMAGING: See below MICROBIOLOGY: Please see below. 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 Anemia of chronic disease, GI bleed, diverticulosis, unclear history of seizures, has been off Dilantin. Breast cancer with mastectomy 2013. Glaucoma directly admitted to the hospitalist service Per GI request for evaluation of symptomatic anemia, hemoglobin of 7 for possible GI bleed. Symptomatic anemia Acute blood loss anemia Acute GI bleed Esophagitis Gastric Ulcer epistaxis History of CVA, with chronic left-sided weakness on chronic anticoagulation COPD Chronic kidney disease stage II Diastolic heart failure with preserved systolic function. Ejection fraction 65% Hypertension Obstructive sleep apnea on 2 L home oxygen at night Pulmonary hypertension CAD Pulmonary sarcoidosis History of breast cancer status post mastectomy Morbid obesity Diabetes type 2 Chronic atrial fibrillation Gastroesophageal reflux disease Hypothyroidism Osteoporosis Chronic pain antibodies to rbc transfusion PLAN: PPI bid, carafate, prn cepacol, mouth spray. no oral AC x 5 days, then resume. s/p 3urbc transfusion. recheck h&h if <9, due to sob w symptomatic anemia, ok to transfuse 2more u rbc from [place] due to antibodies. turn and reposition q2hrs. at risk for decub. spirometry. monitor for aspiration pneumonitis no empiric abx for now unless febrile. continue diuresis. VS, I&O, 24H, Fishbone Vital Signs/I&O Vital Signs Date Time Temp Pulse Resp B/P (MAP) Pulse Ox O2 Delivery O2 Flow Rate FiO2 07/20/20 05:30 2.0 07/20/20 04:00 96.7 54 18 132/61 (84) 100 NIPPV (BIPAP/CPAP) I&O- Last 24 Hours up to 6 AM 07/20/20 05:59 Intake Total 2530 ml Output Total 0 ml Balance 2530 ml Laboratory Data 24H LABS Laboratory Tests 2 07/19/20 08:47: Bedside Glucose (Misc Panel) 80 07/19/20 11:20: Bedside Glucose (Misc Panel) 55L 07/19/20 11:54: Bedside Glucose (Misc Panel) 110 07/19/20 16:22: Bedside Glucose (Misc Panel) 67L 07/19/20 20:36: Bedside Glucose (Misc Panel) 145H 07/20/20 06:08: Nucleated Red Blood Cells % (auto) 0.0, Anion Gap 0L, Glomerular Filtration Rate 48.2, Calcium Level 8.5L CBC/BMP Laboratory Tests 07/20/20 06:08 Microbiology Microbiology 07/19/20 Respiratory Virus Panel (PCR) (EREN) - Final, Complete 07/19/20 Stool Occult Blood (EREN) - Final, Complete RODRIGUE COTTO MD Jul 20, 2020 07:58
[2020-07-20 08:00] VITALS: BP 145/65
[2020-07-20] MEDS ORDERED: POTASSIUM CHLORIDE 10 MEQ SR TABLET PO ONE (08:15)
[2020-07-20] MEDS ORDERED: CHLORASEPTIC SPRAY MT ONE (09:00)
[2020-07-20] MEDS: CEPACOL LOZENGE PO ONE ×2 (09:00→09:35)
[2020-07-20] MEDS: SODIUM CHLORIDE 0.9% INJ 10 ML SYR IV PRN ×2 (09:01→20:06)
[2020-07-20] MEDS: PANTOPRAZOLE 40MG VIAL (C9113 PER 1) IV SCH ×2 (09:01→20:06)
[2020-07-20] MEDS: METOPROLOL TART 50 MG TAB PO SCH ×2 (09:01→20:57)
[2020-07-20] MEDS: TORSEMIDE 20 MG TAB PO SCH ×2 (09:02→18:40)
[2020-07-20] MEDS ORDERED: FUROSEMIDE 100MG/10ML VIAL (J1940) IV ONE (12:00)
[2020-07-20] MEDS: SUCRALFATE SUSP 1GM/10ML UD PO SCH ×3 (13:12→20:53)
--- NOTE | 2020-07-20 13:38 | IPN ---
PROGRESS NOTE DATE: 07/19/2020 SUBJECTIVE: Patient was seen and examined at the bedside. Chart has been reviewed. Overnight patient did not tolerate the bowel prep and could only take about 30% of the bowel prep due to persistent nausea and episodes of vomiting. Patient continues to have black stools according to nursing and she had complained of some shortness of breath which improved with torsemide yesterday. No fever or chills. Denies any hematemesis. No nausea or vomiting this morning. No abdominal pain. OBJECTIVE: Vital signs: Temperature 97.5, pulse 62, respiratory rate 19, blood pressure 140/55, 97% on 2 liters nasal cannula. General: Patient is awake, alert, oriented to self, answers questions appropriately. HEENT: Has her eyes closed, but appropriate speech. Face is symmetric. Tongue is midline. Neck: No JVD, no thyromegaly. Lungs: Diminished. Heart: S1 and S2 irregularly irregular. Chest: Left breast mastectomy. Abdomen: Soft, nontender, nondistended, obese, no guarding or rebound. Extremities: Chronic 2+ pitting edema. LABORATORY DATA: CBC and metabolic panel have been reviewed. IMAGING STUDIES: Reviewed. ASSESSMENT: 69-year-old -Tuvaluan female with history of CVA in 2008 with chronic left sided weakness, chronic kidney disease stage 2, diastolic congestive heart failure with preserved systolic function, EF of 65%, pulmonary hypertension, ANGELINA on home oxygen at night, noncompliant with CPAP, anemia of chronic disease and iron deficiency and GI bleed, diverticulosis, breast cancer with mastectomy on the left admitted due to symptomatic anemia with complaints of shortness of breath, weakness and fatigue with hemoglobin of 7. Patient has developed antibodies from previous blood transfusions and blood transfusion had not been done overnight. IMPRESSIONS: 1. Acute GI bleed. 2. Acute blood loss anemia secondary to GI bleed. 3. Symptomatic anemia. 4. History of CVA with chronic left sided hemiparesis on chronic anticoagulation which has been held due to acute blood loss. 5. Chronic kidney disease stage 3 at baseline creatinine. 6. Diastolic congestive heart failure with preserved systolic function, EF of 65%. 7. COPD. 8. ANGELINA on chronic 2 liters oxygen at night. 9. Pulmonary hypertension. 10. History of CAD. 11. History of pulmonary sarcoidosis. 12. Type-2 diabetes. 13. Chronic atrial fibrillation off anticoagulation due to acute blood loss. 14. Hypothyroidism. 15. Osteoporosis. 16. History of breast cancer status post left mastectomy. 17. Morbid obesity, BMI of 48.2 complicating care. PLAN: Patient is currently on hypoglycemic protocol, n.p.o. status, did not tolerate the bowel prep, but we will proceed with EGD today on Protonix 40 I.V. twice a day. GI doctor Dr. Bautista has been consulted. Patient has not received any blood transfusion overnight due to antibodies detected on type and cross. Patient will be transfused 3 units of blood and will be monitored with repeat H&H since she has symptomatic anemia. We will try to determine the etiology. She is currently off antiplatelet as well as anticoagulants despite risk of stroke with chronic afib and history of CVA. Due to ongoing blood loss we have not put her on intravenous heparin drip. Kidney function is at baseline. Monitoring I's&O's. Currently on strict daily weights and fluid restriction. She had 7 episodes of emesis. Her Zofran has been changed to I.V. this morning. Continued on Synthroid and metoprolol for rate control for afib. MTDD
[2020-07-20 14:00] VITALS: BP 129/76
[2020-07-20 20:19] LABS: HEMATOCRIT 35.4 % (36.0-47.0); HEMOGLOBIN 10.4 g/dl (12.0-15.5)
[2020-07-20] MEDS: NORCO, ANEXSIA 5/325MG TABLET (HYDROcodone/ACETAMINOPHEN) PO PRN (20:52)
[2020-07-20] MEDS: LATANOPROST 0.005% OPHTH SOLN 2.5 ML OU SCH (21:00)
[2020-07-20 22:00] VITALS: BP 166/80
[2020-07-21] MEDS: ACETAMINOPHEN TAB 650MG DOSE (2X325MG) PO PRN ×2 (02:02→16:01)
[2020-07-21] MEDS: LEVOTHYROXINE 137MCG TABLET (0.137MG) PO SCH (05:19)
[2020-07-21] MEDS: NORCO, ANEXSIA 5/325MG TABLET (HYDROcodone/ACETAMINOPHEN) PO PRN ×2 (05:19→20:25)
[2020-07-21] MEDS: SODIUM CHLORIDE 0.9% INJ 10 ML SYR IV SCH ×2 (05:20→17:28)
[2020-07-21 05:55] LABS: HEMATOCRIT 34.6 % (36.0-47.0); MEAN CORPUSCULAR HEMOGLOBIN 28.4 pg (27.0-33.0); MEAN CORPUSCULAR HGB CONC 28.9 g/dl (32.0-36.5); MEAN CORPUSCULAR VOLUME 98.3 fl (80.0-96.0); PLATELET COUNT, AUTOMATED 182 10^3/uL (150-450); RED BLOOD COUNT 3.52 10^6/uL (4.00-5.40); WHITE BLOOD COUNT 6.9 10^3/uL (4.0-10.0)
[2020-07-21 06:00] VITALS: BP 150/65
[2020-07-21 06:19] LABS: CALCIUM LEVEL 8.4 MG/DL (8.8-10.2); CREATININE FOR GFR 1.41 MG/DL (0.55-1.30); GLOMERULAR FILTRATION RATE 47.8 (>45); POTASSIUM SERUM 3.7 MEQ/L (3.5-5.1)
[2020-07-21] MEDS: SUCRALFATE SUSP 1GM/10ML UD PO SCH ×4 (08:28→20:24)
[2020-07-21] MEDS: PANTOPRAZOLE 40MG VIAL (C9113 PER 1) IV SCH ×2 (08:28→20:25)
[2020-07-21] MEDS: METOPROLOL TART 50 MG TAB PO SCH ×2 (08:29→20:24)
[2020-07-21] MEDS: TORSEMIDE 20 MG TAB PO SCH ×2 (08:29→17:26)
[2020-07-21] MEDS: HumaLOG INSULIN (NovoLOG) PER UNIT SC SCH ×4 (08:30→20:25)
--- NOTE | 2020-07-21 10:10 | IPNPDOC ---
Date Seen The patient was seen on 07/21/20. Progress Note SUBJECTIVE: denies recurrent epistaxis, brbpr, hemoptysis or hematemesis no sob/cp. OBJECTIVE PHYSICAL EXAMINATION: VS see below General:no distress HEENT:no jvd no pallor or icterus Face is symmetric. Tongue is midline. Neck: No JVD, no thyromegaly. Lungs: Diminished. Heart: S1 and S2 irregularly irregular. Chest: Left breast mastectomy. Abdomen: Soft, nontender, nondistended, obese, no guarding or rebound. Extremities: Chronic 2+ pitting edema. LABORATORY DATA, IMAGING STUDIES, MICROBIOLOGY: Please see below. ASSESSMENT: 69-year-old -Ivorian female with history of CVA in 2008 with chronic left sided weakness, chronic kidney disease stage 2, diastolic congestive heart failure with preserved systolic function, EF of 65%, pulmonary hypertension, ANGELINA on home oxygen at night, noncompliant with CPAP, anemia of chronic disease and iron deficiency and GI bleed, diverticulosis, breast cancer with mastectomy on the left admitted due to symptomatic anemia with complaints of shortness of breath, weakness and fatigue with hemoglobin of 7. Patient has developed antibodies from previous blood transfusions . 1. Acute GI bleed: esophagitis / gastric ulcer 2. Acute blood loss anemia secondary to GI bleed. 3. Symptomatic anemia. 4. History of CVA with chronic left sided hemiparesis on chronic anticoagulation which has been held due to acute blood loss. 5. Chronic kidney disease stage 3 at baseline creatinine. 6. Diastolic congestive heart failure with preserved systolic function, EF of 65%. 7. COPD. 8. ANGELINA on chronic 2 liters oxygen at night. 9. Pulmonary hypertension. 10. History of CAD. 11. History of pulmonary sarcoidosis. 12. Type-2 diabetes. 13. Chronic atrial fibrillation off anticoagulation due to acute blood loss. 14. Hypothyroidism. 15. Osteoporosis. 16. History of breast cancer status post left mastectomy. 17. Morbid obesity, BMI of 48.2 complicating care. PLAN: off oral AC for total 5 days, then resume due to h/o chronic afib with CVA. s/p 3 u rbc transfusion. ppi and carafate for 8wks repeat egd to check healing of gastric ulcer. resumed on home meds. dc to [facility] on thursday. no need for ent fu as negative findings on laryngoscopy. gi fu in 1 wk. VS, I&O, 24H, Fishbone Vital Signs/I&O Vital Signs Date Time Temp Pulse Resp B/P (MAP) Pulse Ox O2 Delivery O2 Flow Rate FiO2 07/21/20 08:29 74 115/45 07/21/20 06:00 98.7 16 100 Nasal Cannula 2.0 I&O- Last 24 Hours up to 6 AM 07/21/20 06:00 Intake Total 1680 ml Output Total 0 ml Balance 1680 ml Laboratory Data 24H LABS Laboratory Tests 2 07/20/20 11:57: Bedside Glucose (Misc Panel) 114 07/20/20 17:46: Bedside Glucose (Misc Panel) 223H 07/20/20 20:26: Bedside Glucose (Misc Panel) 278H 07/21/20 05:23: Nucleated Red Blood Cells % (auto) 0.0, Anion Gap 3L, Glomerular Filtration Rate 47.8, Calcium Level 8.4L CBC/BMP Laboratory Tests 07/20/20 20:05 07/21/20 05:23 Microbiology Microbiology 07/19/20 Respiratory Virus Panel (PCR) (EREN) - Final, Complete 07/19/20 Stool Occult Blood (EREN) - Final, Complete RODRIGUE COTTO MD Jul 21, 2020 10:10
[2020-07-21] MEDS: BRIMONIDINE 0.1% OPHTH SOLN 5 ML OU SCH ×2 (16:00→20:24)
[2020-07-21] MEDS: POLYVINYL ALCOHOL OPHTH SOLN 15 ML(LIQUITEARS) OU PRN (20:24)
[2020-07-21] MEDS: LATANOPROST 0.005% OPHTH SOLN 2.5 ML OU SCH (20:24)
[2020-07-21] MEDS: SODIUM CHLORIDE 0.9% INJ 10 ML SYR IV PRN (20:25)
[2020-07-22] MEDS: SODIUM CHLORIDE 0.9% INJ 10 ML SYR IV SCH ×2 (05:52→17:45)
[2020-07-22] MEDS: LEVOTHYROXINE 137MCG TABLET (0.137MG) PO SCH (05:53)
[2020-07-22 06:00] VITALS: BP 143/56
[2020-07-22 06:04] LABS: HEMATOCRIT 33.4 % (36.0-47.0); HEMOGLOBIN 9.6 g/dl (12.0-15.5); MEAN CORPUSCULAR HEMOGLOBIN 28.6 pg (27.0-33.0); MEAN CORPUSCULAR HGB CONC 28.7 g/dl (32.0-36.5); MEAN CORPUSCULAR VOLUME 99.4 fl (80.0-96.0); PLATELET COUNT, AUTOMATED 164 10^3/uL (150-450); RED BLOOD COUNT 3.36 10^6/uL (4.00-5.40); WHITE BLOOD COUNT 5.4 10^3/uL (4.0-10.0)
[2020-07-22 06:33] LABS: CALCIUM LEVEL 8.4 MG/DL (8.8-10.2); CREATININE FOR GFR 1.6 MG/DL (0.55-1.30); GLOMERULAR FILTRATION RATE 41.3 (>45); POTASSIUM SERUM 3.9 MEQ/L (3.5-5.1)
[2020-07-22] MEDS ORDERED: APIXABAN 2.5 MG TAB (ELIQUIS) PO ONE (07:05)
--- NOTE | 2020-07-22 07:29 | IPNPDOC ---
Date Seen The patient was seen on 07/22/20. Progress Note SUBJECTIVE: c/o small amount of epistaxis this am, which spontaneously resolved. no hematemesis, hemoptysis, brbpr, or melena. no c/p, sob OBJECTIVE PHYSICAL EXAMINATION: VS see below General:no distress nasal cannula w/o dried blood in nares HEENT:no jvd no pallor or icterus Face is symmetric. Tongue is midline. Neck: No JVD, no thyromegaly. Lungs: Diminished. Heart: S1 and S2 irregularly irregular. Chest: Left breast mastectomy. Abdomen: Soft, nontender, nondistended, obese, no guarding or rebound. Extremities: Chronic 2+ pitting edema. LABORATORY DATA, IMAGING STUDIES, MICROBIOLOGY: Please see below. ASSESSMENT: 69-year-old -Venezuelan female with history of CVA in 2008 with chronic left sided weakness, chronic kidney disease stage 2, diastolic congestive heart failure with preserved systolic function, EF of 65%, pulmonary hypertension, ANGELINA on home oxygen at night, noncompliant with CPAP, anemia of chronic disease and iron deficiency and GI bleed, diverticulosis, breast cancer with mastectomy on the left admitted due to symptomatic anemia with complaints of shortness of breath, weakness and fatigue with hemoglobin of 7. Patient has developed antibodies from previous blood transfusions . 1. Acute GI bleed: esophagitis / gastric ulcer 2. Acute blood loss anemia secondary to GI bleed. 3. Symptomatic anemia. 4. History of CVA with chronic left sided hemiparesis on chronic anticoagulation which has been held due to acute blood loss. 5. Chronic kidney disease stage 3 at baseline creatinine. 6. Diastolic congestive heart failure with preserved systolic function, EF of 65%. 7. COPD. 8. ANGELINA on chronic 2 liters oxygen at night. 9. Pulmonary hypertension. 10. History of CAD. 11. History of pulmonary sarcoidosis. 12. Type-2 diabetes. 13. Chronic atrial fibrillation off anticoagulation due to acute blood loss. 14. Hypothyroidism. 15. Osteoporosis. 16. History of breast cancer status post left mastectomy. 17. Morbid obesity, BMI of 48.2 complicating care. 18. epistaxis s/p laryngoscopy ENT: neg findings. PLAN: had episode of epistaxis, but resolved. off eliquis for 5 days w/o recurrent issues. may resume w food this am. monitor for the next 12-24hrs if pt bleeds. if so, no evening dose. transfuse rbc, and re-consult either ent or gi depending on where bleeding occurs. if bleeds, needs to be off oral ac for another 5days despite risk of recurrent cva due to chronic afib. VS, I&O, 24H, Fishbone Vital Signs/I&O Vital Signs Date Time Temp Pulse Resp B/P (MAP) Pulse Ox O2 Delivery O2 Flow Rate FiO2 07/22/20 06:00 98.2 52 17 143/56 (85) 100 Nasal Cannula 2.0 I&O- Last 24 Hours up to 6 AM 07/22/20 06:00 Intake Total 870 ml Balance 870 ml Laboratory Data 24H LABS Laboratory Tests 2 07/21/20 11:38: Bedside Glucose (Misc Panel) 154H 07/21/20 16:25: Bedside Glucose (Misc Panel) 193H 07/21/20 19:49: Bedside Glucose (Misc Panel) 246H 07/22/20 05:51: Nucleated Red Blood Cells % (auto) 0.0, Anion Gap 3L, Glomerular Filtration Rate 41.3L, Calcium Level 8.4L CBC/BMP Laboratory Tests 07/22/20 05:51 Microbiology Microbiology 07/19/20 Respiratory Virus Panel (PCR) (EREN) - Final, Complete 07/19/20 Stool Occult Blood (EREN) - Final, Complete RODRIGUE COTTO MD Jul 22, 2020 07:29
[2020-07-22] MEDS: PANTOPRAZOLE 40MG VIAL (C9113 PER 1) IV SCH ×2 (07:32→21:51)
[2020-07-22] MEDS: SUCRALFATE SUSP 1GM/10ML UD PO SCH ×4 (07:32→21:51)
[2020-07-22] MEDS: NORCO, ANEXSIA 5/325MG TABLET (HYDROcodone/ACETAMINOPHEN) PO PRN ×2 (07:33→21:51)
[2020-07-22] MEDS: METOPROLOL TART 50 MG TAB PO SCH ×2 (07:33→21:59)
[2020-07-22] MEDS: TORSEMIDE 20 MG TAB PO SCH ×2 (07:34→16:32)
[2020-07-22] MEDS: POLYVINYL ALCOHOL OPHTH SOLN 15 ML(LIQUITEARS) OU PRN ×2 (07:35→21:59)
[2020-07-22] MEDS: HumaLOG INSULIN (NovoLOG) PER UNIT SC SCH ×4 (07:35→21:00)
[2020-07-22] MEDS: BRIMONIDINE 0.1% OPHTH SOLN 5 ML OU SCH ×3 (07:35→21:59)
[2020-07-22] MEDS: SODIUM CHLORIDE 0.9% INJ 10 ML SYR IV PRN (21:51)
[2020-07-22] MEDS: LATANOPROST 0.005% OPHTH SOLN 2.5 ML OU SCH (21:59)
[2020-07-23] MEDS: LEVOTHYROXINE 137MCG TABLET (0.137MG) PO SCH (05:47)
[2020-07-23] MEDS: SODIUM CHLORIDE 0.9% INJ 10 ML SYR IV SCH ×2 (05:48→17:34)
[2020-07-23 06:00] VITALS: BP 125/76
[2020-07-23] MEDS ORDERED: SUCRALFATE SUSP 1GM/10ML UD PO ONE (06:05)
[2020-07-23 06:26] LABS: HEMATOCRIT 34.2 % (36.0-47.0); HEMOGLOBIN 9.9 g/dl (12.0-15.5); MEAN CORPUSCULAR HEMOGLOBIN 28.4 pg (27.0-33.0); MEAN CORPUSCULAR HGB CONC 28.9 g/dl (32.0-36.5); PLATELET COUNT, AUTOMATED 168 10^3/uL (150-450); RED BLOOD COUNT 3.49 10^6/uL (4.00-5.40)
[2020-07-23 06:35] LABS: CALCIUM LEVEL 8.3 MG/DL (8.8-10.2); CREATININE FOR GFR 1.48 MG/DL (0.55-1.30); GLOMERULAR FILTRATION RATE 45.2 (>45); POTASSIUM SERUM 4.1 MEQ/L (3.5-5.1)
[2020-07-23] MEDS ORDERED: APIXABAN 2.5 MG TAB (ELIQUIS) PO ONE (07:25)
[2020-07-23 07:30] VITALS: BP 139/75
[2020-07-23] MEDS: TORSEMIDE 20 MG TAB PO SCH ×2 (08:09→16:19)
[2020-07-23] MEDS: METOPROLOL TART 50 MG TAB PO SCH ×2 (08:11→22:02)
[2020-07-23] MEDS: HumaLOG INSULIN (NovoLOG) PER UNIT SC SCH ×4 (08:13→21:00)
[2020-07-23] MEDS: PANTOPRAZOLE 40MG VIAL (C9113 PER 1) IV SCH ×2 (08:13→22:01)
[2020-07-23] MEDS: BRIMONIDINE 0.1% OPHTH SOLN 5 ML OU SCH ×3 (08:16→22:03)
[2020-07-23] MEDS: NORCO, ANEXSIA 5/325MG TABLET (HYDROcodone/ACETAMINOPHEN) PO PRN (09:24)
[2020-07-23 10:07] LABS: HEMOGLOBIN A 95.6 % (96.4-98.8); HEMOGLOBIN F (FETAL) 2.4 % (0.0-2.0)
[2020-07-23] MEDS ORDERED: PROT1TAB2 PO (10:49)
[2020-07-23] MEDS ORDERED: SUCR1ORA PO (10:49)
--- NOTE | 2020-07-23 11:08 | IPNPDOC ---
Date Seen The patient was seen on 07/23/20. Progress Note SUBJECTIVE: still w episodic epistaxis that resolves w/o intervention. h&h stable no overt hematemesis, brbpr, melena or black stools OBJECTIVE PHYSICAL EXAMINATION: VS see below General:no distress nasal cannula no conversational dyspnea w/o dried blood in nares HEENT:no jvd no pallor or icterus Face is symmetric. Tongue is midline. Neck: No JVD, no thyromegaly. Lungs: Diminished. left mastectomy Heart: S1 and S2 irregularly irregular. Chest: Left breast mastectomy. Abdomen: Soft, nontender, nondistended, obese, no guarding or rebound. Extremities: Chronic 2+ pitting edema. LABORATORY DATA, IMAGING STUDIES, MICROBIOLOGY: Please see below. ASSESSMENT: 69-year-old -[place]ore[place] female with history of CVA in 2008 with chronic left sided weakness, chronic kidney disease stage 2, diastolic congestive heart failure with preserved systolic function, EF of 65%, pulmonary hypertension, ANGELINA on home oxygen at night, noncompliant with CPAP, anemia of chronic disease and iron deficiency and GI bleed, diverticulosis, breast cancer with mastectomy on the left admitted due to symptomatic anemia with complaints of shortness of breath, weakness and fatigue with hemoglobin of 7. Patient has developed antibodies from previous blood transfusions . 1. Acute GI bleed: esophagitis / gastric ulcer -s/p 3 units RBC transfusion obtained from [facility] due to antibodies against RBCs -PPI twice a day, carfate qachs -repeat egd to document gastric ulcer resolution after 6-8 weeks -Off antiplatelet and anticoagulants 2. Acute blood loss anemia secondary to GI bleed/ minor epistaxis -s/p 3 units RBC transfusion obtained from [facility] due to antibodies against RBCs -PPI twice a day, carfate qachs -repeat egd to document gastric ulcer resolution after 6-8 weeks -laryngoscopy by ENT Dr. Becker: no acute findings -Not on antiplatelets or anticoagulants 3. Symptomatic anemia. -Status post 3 units RBC transfusion 4. History of CVA with chronic left sided hemiparesis on chronic anticoagulation which has been held due to acute blood loss. -Oral anticoagulation discontinued -Oral antiplatelet discontinued 5. Chronic kidney disease stage 3 at baseline creatinine. -Avoiding nephrotoxins, renally dosing all medications 6. Diastolic congestive heart failure with preserved systolic function, EF of 65%., Compensated 7. COPD. , compensated 8. ANGELINA on chronic 2 liters oxygen at night. Chronic 9. Pulmonary hypertension. On home oxygen 10. History of CAD. , No acute ischemic complaints 11. History of pulmonary sarcoidosis. Complicating care 12. Type-2 diabetes. On insulin sliding scale with coverage fingersticks every before meals at bedtime consistent carbohydrate diet 13. Chronic atrial fibrillation off anticoagulation and antiplatelets due to acute blood loss. Despite risk of recurrent CVA. May resume antiplatelet and anticoagulation while at the [facility] 14. Hypothyroidism. On Synthroid 15. Osteoporosis. 16. History of breast cancer status post left mastectomy. 17. Morbid obesity, BMI of 48.2 complicating care. 18. epistaxis s/p laryngoscopy ENT: neg findings. Disposition: Medically stable for discharge to [facility]. VS, [facility]&O, [facility]I&O Vital Signs Date Time Temp Pulse Resp B/P (MAP) Pulse Ox O2 Delivery O2 Flow Rate FiO2 07/23/20 09:54 18 07/23/20 09:00 2.0 07/23/20 08:11 64 139/75 07/23/20 07:30 98.4 100 Nasal Cannula I&O- Last 24 Hours up to 6 AM 07/23/20 06:00 Intake Total 1130 ml Output Total 5 ml Balance 1125 ml Laboratory Data 24H LABS Laboratory Tests 2 07/22/20 11:39: Bedside Glucose (Misc Panel) 190H 07/22/20 16:42: Bedside Glucose (Misc Panel) 204H 07/22/20 20:08: Bedside Glucose (Misc Panel) 245H 07/23/20 05:51: Nucleated Red Blood Cells % (auto) 0.0, Anion Gap 2L, Glomerular Filtration Rate 45.2, Calcium Level 8.3L CBC/BMP Laboratory Tests 07/23/20 05:51 Microbiology Microbiology 07/19/20 Respiratory Virus Panel (PCR) (EREN) - Final, Complete 07/19/20 Stool Occult Blood (EREN) - Final, Complete RODRIGUE COTTO MD Jul 23, 2020 11:08
[2020-07-23] MEDS: POLYVINYL ALCOHOL OPHTH SOLN 15 ML(LIQUITEARS) OU PRN ×2 (11:39→22:02)
[2020-07-23] MEDS: SUCRALFATE SUSP 1GM/10ML UD PO SCH ×3 (12:10→22:01)
[2020-07-23 12:21] LABS: HEMATOCRIT 33.2 % (36.0-47.0); HEMOGLOBIN 9.8 g/dl (12.0-15.5)
[2020-07-23 14:00] VITALS: BP 144/72
--- NOTE | 2020-07-23 18:44 | DS.PDOC ---
Discharge Summary General Date of Admission Jul 18, 2020 at 17:36 Date of Discharge 07/24/20 DISCHARGED TO [facility]. Discharge Summary DISCHARGE DIAGNOSES: 1. Acute GI bleed: esophagitis / gastric ulcer 2. Acute blood loss anemia secondary to GI bleed. 3. Symptomatic anemia. 4. History of CVA with chronic left sided hemiparesis on chronic anticoagulation which has been held due to acute blood loss. 5. Chronic kidney disease stage 3 at baseline creatinine. 6. Diastolic congestive heart failure with preserved systolic function, EF of 65%. 7. COPD. 8. ANGELINA on chronic 2 liters oxygen at night. 9. Pulmonary hypertension. 10. History of CAD. 11. History of pulmonary sarcoidosis. 12. Type-2 diabetes. 13. Chronic atrial fibrillation off anticoagulation due to acute blood loss. 14. Hypothyroidism. 15. Osteoporosis. 16. History of breast cancer status post left mastectomy. 17. Morbid obesity, BMI of 48.2 complicating care. 18. epistaxis s/p laryngoscopy ENT: neg findings. DISCHARGE MEDICATIONS: SEE BELOW DISCHARGE INSTRUCTIONS: NO ASA OR ELIQUIS DUE TO RECENT ACUTE BLOOD LOSS ANEMIA,EPISTAXIS, GI BLEED FROM STOMACH ULCER/ESOPHAGITIS. PCP TO DETERMINE WHEN TO RESUME ORAL AC DEPENDING ON RECURRENT EPISTAXIS. PCP FU 1WK. PPI FOR 8WKS, OUTPT REPEAT EGD TO DOCUMENT GASTRIC ULCER RESOLUTION. DR NORMA MINOR APPT 1 [facility] HOSPITAL COURSE: 69-year-old -[place] Ze[place] female with history of CVA in 2008 with chronic left sided weakness, chronic kidney disease stage 2, diastolic congestive heart failure with preserved systolic function, EF of 65%, pulmonary hypertension, ANGELINA on home oxygen at night, noncompliant with CPAP, anemia of chronic disease and iron deficiency and GI bleed, diverticulosis, breast cancer with mastectomy on the left admitted due to symptomatic anemia with complaints of shortness of breath, weakness and fatigue with hemoglobin of 7. Patient has developed antibodies from previous blood transfusions . 1. Acute GI bleed: esophagitis / gastric ulcer -s/p 3 units RBC transfusion obtained from [place] due to antibodies against RBCs -PPI twice a day, carfate qachs -repeat egd to document gastric ulcer resolution after 6-8 weeks -Off antiplatelet and anticoagulants 2. Acute blood loss anemia secondary to GI bleed/ minor epistaxis -s/p 3 units RBC transfusion obtained from [place] due to antibodies against RBCs -PPI twice a day, carfate qachs -repeat egd to document gastric ulcer resolution after 6-8 weeks -laryngoscopy by ENT Dr. Becker: no acute findings -Not on antiplatelets or anticoagulants 3. Symptomatic anemia. -Status post 3 units RBC transfusion 4. History of CVA with chronic left sided hemiparesis on chronic anticoagulation which has been held due to acute blood loss. -Oral anticoagulation discontinued -Oral antiplatelet discontinued 5. Chronic kidney disease stage 3 at baseline creatinine. -Avoiding nephrotoxins, renally dosing all medications 6. Diastolic congestive heart failure with preserved systolic function, EF of 65%., Compensated 7. COPD. , compensated 8. ANGELINA on chronic 2 liters oxygen at night. Chronic 9. Pulmonary hypertension. On home oxygen 10. History of CAD. , No acute ischemic complaints 11. History of pulmonary sarcoidosis. Complicating care 12. Type-2 diabetes. On insulin sliding scale with coverage fingersticks every before meals at bedtime consistent carbohydrate diet 13. Chronic atrial fibrillation off anticoagulation and antiplatelets due to acute blood loss. Despite risk of recurrent CVA. May resume antiplatelet and anticoagulation while at the [facility] 14. Hypothyroidism. On Synthroid 15. Osteoporosis. 16. History of breast cancer status post left mastectomy. 17. Morbid obesity, BMI of 48.2 complicating care. 18. epistaxis s/p laryngoscopy ENT: neg findings. DISCHARGE PHYSICAL EXAMINATION: VS see below General:no distress nasal cannula no conversational dyspnea w/o dried blood in nares HEENT:no jvd no pallor or icterus Face is symmetric. Tongue is midline. Neck: No JVD, no thyromegaly. Lungs: Diminished. left mastectomy Heart: S1 and S2 irregularly irregular. Chest: Left breast mastectomy. Abdomen: Soft, nontender, nondistended, obese, no guarding or rebound. Extremities: Chronic 2+ pitting edema. LABORATORY DATA, IMAGING STUDIES, MICROBIOLOGY: Please see below. TIME SPENT ON DISCHARGE: 30 MIN. Vital Signs/I&Os Vital Signs Date Time Temp Pulse Resp B/P (MAP) Pulse Ox O2 Delivery O2 Flow Rate FiO2 07/23/20 14:00 97.9 61 20 144/72 (96) 98 Nasal Cannula 2.0 I&O- Last 24 Hours up to 6 AM 07/23/20 06:00 Intake Total 1130 ml Output Total 5 ml Balance 1125 ml Laboratory Data Labs 24H Laboratory Tests 2 07/22/20 20:08: Bedside Glucose (Misc Panel) 245H 07/23/20 05:51: Nucleated Red Blood Cells % (auto) 0.0, Anion Gap 2L, Glomerular Filtration Rate 45.2, Calcium Level 8.3L 07/23/20 11:45: Bedside Glucose (Misc Panel) 200H 07/23/20 16:26: Bedside Glucose (Misc Panel) 209H CBC/BMP Laboratory Tests 07/23/20 05:51 07/23/20 12:07 FSBS Laboratory Tests Test 07/22/20 20:08 07/23/20 11:45 07/23/20 16:26 Range/Units Bedside Glucose (Misc Panel) 245 200 209 80-115 MG/DL Microbiology Microbiology 07/19/20 Respiratory Virus Panel (PCR) (EREN) - Final, Complete 07/19/20 Stool Occult Blood (EREN) - Final, Complete Discharge Medications Scheduled Acetaminophen (Acetaminophen 8 Hour) 650 Mg Tablet.er, 650 MG PO BID, (Reported) Ascorbic Acid (Vitamin C) 500 Mg Capsule, 500 MG PO DAILY, (Reported) Bimatoprost (Lumigan) 0.01% 2.5ML Drops, 1 DROP OU DAILY, (Reported) Brimonidine Tartrate (Brimonidine Tartrate) 100 Drop/5 Ml Soln, 1 DROP OU TID, (Reported) Denosumab Injection (Prolia) 60 Mg/1 Ml Syringe, 60 MG SC ASDIRECTED, (Reported) EVERY 6 MONTHS DUE 08/21/2020 Diclofenac Sodium (Voltaren) 100 Gm Gel..gram., 2 GRAMS TOP BID, (Reported) wrists,neck and shoulders Diclofenac Sodium (Voltaren) 100 Gm Gel..gram., 4 GRAMS TOP BID, (Reported) KNEES Docusate Sodium (Colace) 100 Mg Capsule, 100 MG PO DAILY, (Reported) Dulaglutide (Trulicity) 0.75 Mg/0.5 Ml Pen.injctr, 0.75 MG SC QWEEK, (Reported) EVERY THURSDAY Empagliflozin (Jardiance) 10 Mg Tablet, 10 MG PO DAILY, (Reported) Eyelid Cleanser Combination 5 (Ocusoft Lid Scrub) 1 Each Med..pad, 1 EACH TOP BID, (Reported) BOTH EYELIDS Ferrous Sulfate (Ferrous Sulfate) 325 Mg Tablet, 325 MG PO DAILY, (Reported) Glycerin/Propylene Glycol (Artificial Tears Drops) 15 Ml Drops, 1 DROP OU BID, (Reported) Insulin Glargine (Lantus) 100 Unit/1 Ml Vial, 25 UNITS SC DAILY, (Reported) Levothyroxine Sodium (Levothyroxine Sodium) 137 Mcg Tablet, 137 MCG PO QAM, (Reported) Metoprolol Tartrate (Metoprolol Tartrate) 50 Mg Tablet, 50 MG PO BID, (Reported) Pantoprazole Sodium (Protonix) 40 Mg Tablet.dr, 40 MG PO BID Polyethylene Glycol 3350 (Miralax) 1 Pow Pow, 17 GM PO DAILY, (Reported) Psyllium Husk (Psyllium Husk) 1 Gm Powder, 1 PKT PO QHS, (Reported) Quetiapine Fumarate (Quetiapine Fumarate) 50 Mg Tablet, 50 MG PO DAILY, (Reported) Rosuvastatin Calcium (Rosuvastatin Calcium) 20 Mg Tab, 20 MG PO QHS, (Reported) Sennosides (Senokot) 8.6 Mg Tablet, 1 TAB PO DAILY, (Reported) Sodium Chloride (Saline Nasal [place]) 44 Ml [place], 2 SPRAY NARES QHS, (Reported) Sucralfate (Sucralfate) 1 Gm/10 Ml Oral.susp, 1 GM PO ACHS Torsemide (Torsemide) 20 Mg Tablet, 40 MG PO BID, (Reported) WENT ON HOLD ON 07/16/20 RESTART 07/19/20 Umeclidinium Brm/Vilanterol Tr (Anoro Ellipta 62.5-25 Mcg INH) 1 Each Blst.w.dev, 1 PUFF PO DAILY, (Reported) Scheduled PRN Acetaminophen (Acetaminophen) 650 Mg Supp.rect, 650 MG NV Q4H PRN for PAIN / FEVER, (Reported) Acetaminophen (Acetaminophen ER) 650 Mg Tablet.er, 650 MG PO Q8H PRN for PAIN, (Reported) Bisacodyl (Bisacodyl) 10 Mg Sup, 10 MG NV DAILY PRN for CONSTIPATION, (Reported) Glucagon,Human Recombinant (Glucagon Emergency Kit) 1 Mg Kit, 1 MG IM ASDIRECTED PRN for LOW BLOOD SUGAR, (Reported) Hydrocodone/Acetaminophen (Hydrocodone-Acetamin 5-325 mg) 1 Each Tablet, 1 TAB PO BID PRN for PAIN, (Reported) Ipratropium/Albuterol Sulfate (Iprat-Albut 0.5-3(2.5) mg/3 ml) 3 Ml Ampul.neb, 1 VIAL NEB Q6H PRN for SHORTNESS OF BREATH, (Reported) Milk Of Magnesia (Milk of Magnesia) 2,400 Mg/10 Ml Oral.susp, 10 ML PO DAILY PRN for CONSTIPATION, (Reported) Phenol (Chloraseptic) 20 Ml [place], 1 SPRAY PO Q4H PRN for SORE THROAT, (Reported) Sodium Chloride ([place]) 104 Ml [place], 1 SPRAY NA Q4H PRN for NASAL DRYNESS, (Reported) EACH NOSTRIL Sodium Phosphate,[place]-Dibasic (Enema Ready To Use) 1 Laurie Laurie, 1 LAURIE NV DAILY PRN for CONSTIPATION, (Reported) guaiFENesin (Cough Syrup) 100 Mg/5 Ml Liquid, 5 ML PO Q4H PRN for COUGH, (Reported) Allergies Coded Allergies: Sulfa (Sulfonamide Antibiotics) (Verified Allergy, Unknown, 06/30/18) atorvastatin (Verified Allergy, Unknown, 06/30/18) baclofen (Verified Allergy, Unknown, 06/30/18) clindamycin (Verified Allergy, Unknown, 06/30/18) duloxetine (Verified Allergy, Unknown, 06/30/18) levetiracetam (Verified Allergy, Unknown, 06/30/18) lisinopril (Verified Allergy, Unknown, 06/30/18) topiramate (Verified Allergy, Unknown, 06/30/18) tramadol (Verified Allergy, Unknown, 06/30/18) RODRIGUE COTTO MD Jul 23, 2020 18:44
[2020-07-23] MEDS ORDERED: APIXABAN 2.5 MG TAB (ELIQUIS) PO SCH (21:00)
[2020-07-23] MEDS: APIXABAN 5 MG TAB (ELIQUIS) PO SCH (22:02)
[2020-07-23] MEDS: LATANOPROST 0.005% OPHTH SOLN 2.5 ML OU SCH (22:02)
[2020-07-24] MEDS: NORCO, ANEXSIA 5/325MG TABLET (HYDROcodone/ACETAMINOPHEN) PO PRN (01:39)
[2020-07-24] MEDS: LEVOTHYROXINE 137MCG TABLET (0.137MG) PO SCH (04:51)
[2020-07-24] MEDS: POLYVINYL ALCOHOL OPHTH SOLN 15 ML(LIQUITEARS) OU PRN ×3 (04:51→11:41)
[2020-07-24] MEDS: SODIUM CHLORIDE 0.9% INJ 10 ML SYR IV SCH (04:52)
[2020-07-24 05:50] VITALS: BP 160/68
[2020-07-24 08:22] LABS: HEMATOCRIT 33.8 % (36.0-47.0); HEMOGLOBIN 9.9 g/dl (12.0-15.5); MEAN CORPUSCULAR HEMOGLOBIN 28.7 pg (27.0-33.0); MEAN CORPUSCULAR HGB CONC 29.3 g/dl (32.0-36.5); PLATELET COUNT, AUTOMATED 163 10^3/uL (150-450); RED BLOOD COUNT 3.45 10^6/uL (4.00-5.40); WHITE BLOOD COUNT 5.6 10^3/uL (4.0-10.0)
[2020-07-24 08:46] LABS: CREATININE FOR GFR 1.24 MG/DL (0.55-1.30); GLOMERULAR FILTRATION RATE 55.5 (>45); POTASSIUM SERUM 4.1 MEQ/L (3.5-5.1)
[2020-07-24 09:00] VITALS: BP 160/68
[2020-07-24] MEDS: METOPROLOL TART 50 MG TAB PO SCH (09:00)
[2020-07-24] MEDS: SUCRALFATE SUSP 1GM/10ML UD PO SCH (09:09)
[2020-07-24] MEDS: HumaLOG INSULIN (NovoLOG) PER UNIT SC SCH (09:09)
[2020-07-24] MEDS: BRIMONIDINE 0.1% OPHTH SOLN 5 ML OU SCH (09:10)
[2020-07-24] MEDS: PANTOPRAZOLE 40MG VIAL (C9113 PER 1) IV SCH (09:10)
[2020-07-24] MEDS: TORSEMIDE 20 MG TAB PO SCH (09:11)
[2020-07-24] MEDS: APIXABAN 5 MG TAB (ELIQUIS) PO SCH (09:11)
[2020-07-24] MEDS: SODIUM CHLORIDE 0.9% INJ 10 ML SYR IV PRN (09:16)
--- NOTE | 2020-07-24 10:35 | IPNPDOC ---
Text Note Date of Service The patient was seen on 07/24/20. NOTE Subjective: Patient was seen and examined this morning at bedside. Patient still has episodic epistaxis fairly mild that resolves spontaneously. This morning her hemoglobin has been stable 9.9. She doesn't report any large volume hematemesis, melena, bright red in her stool. Says she feels better overall. Rated go home today. Objective: Constitutional: Awake and alert, in no apparent distress with nasal cannula in place ENT: Sclera are clear. There is no dried blood in nares Respiratory: Lungs diminished bilaterally. No respiratory distress. Cardiovascular: Irregular heart rate Gastrointestinal: Abdomen is soft, non distended, non tender Musculoskeletal: Chronic 2+ lower extremity pitting edema Neurologic: No focal neurological deficit. Mental Status: A&O x3, normal affect Assessment/plan: ASSESSMENT: 69-year-old -Swedish female with history of CVA in 2008 with chronic left sided weakness, chronic kidney disease stage 2, diastolic congestive heart failure with preserved systolic function, EF of 65%, pulmonary hypertension, ANGELINA on home oxygen at night, noncompliant with CPAP, anemia of chronic disease and iron deficiency and GI bleed, diverticulosis, breast cancer with mastectomy on the left admitted due to symptomatic anemia with complaints of shortness of breath, weakness and fatigue with hemoglobin of 7. Patient has developed antibodies from previous blood transfusions . 1. Acute GI bleed: esophagitis / gastric ulcer -s/p 3 units RBC transfusion obtained from [place] due to antibodies against RBCs -PPI twice a day, carfate qachs -repeat egd to document gastric ulcer resolution after 6-8 weeks -Off antiplatelet and anticoagulants 2. Acute blood loss anemia secondary to GI bleed/ minor epistaxis -s/p 3 units RBC transfusion obtained from [place] due to antibodies against RBCs -PPI twice a day, carfate qachs -repeat egd to document gastric ulcer resolution after 6-8 weeks -laryngoscopy by ENT Dr. Becker: no acute findings -Not on antiplatelets or anticoagulants 3. Symptomatic anemia. -Status post 3 units RBC transfusion 4. History of CVA with chronic left sided hemiparesis on chronic anticoagulation which has been held due to acute blood loss. -Oral anticoagulation discontinued -Oral antiplatelet discontinued 5. Chronic kidney disease stage 3 at baseline creatinine. -Avoiding nephrotoxins, renally dosing all medications 6. Diastolic congestive heart failure with preserved systolic function, EF of 65%., Compensated 7. COPD. , compensated 8. ANGELINA on chronic 2 liters oxygen at night. Chronic 9. Pulmonary hypertension. On home oxygen 10. History of CAD. , No acute ischemic complaints 11. History of pulmonary sarcoidosis. Complicating care 12. Type-2 diabetes. On insulin sliding scale with coverage fingersticks every before meals at bedtime consistent carbohydrate diet 13. Chronic atrial fibrillation off anticoagulation and antiplatelets due to acute blood loss. Despite risk of recurrent CVA. May resume antiplatelet and anticoagulation while at the [facility] after a few days 14. Hypothyroidism. On Synthroid 15. Osteoporosis. 16. History of breast cancer status post left mastectomy. 17. Morbid obesity, BMI of 48.2 complicating care. 18. epistaxis s/p laryngoscopy ENT: neg findings. Disposition: to [facility]. [facility] Cielo CARPIO, I+O VSCielo I+O Laboratory Tests 07/23/20 12:07 07/24/20 07:58 Vital Signs Date Time Temp Pulse Resp B/P (MAP) Pulse Ox O2 Delivery O2 Flow Rate FiO2 07/24/20 09:00 56 160/68 07/24/20 06:56 2.0 07/24/20 05:50 98.1 19 99 Nasal Cannula I&O- Last 24 Hours up to 6 AM 07/24/20 06:00 Intake Total 1110 ml Output Total 0 ml Balance 1110 ml ANDRES ALEJANDRO MD Jul 24, 2020 10:35
--- NOTE | 2020-08-01 11:59 | IPN ---
PROGRESS NOTE DATE: 07/19/2020 SUBJECTIVE: Patient was seen and examined at the bedside. Chart has been reviewed. Overnight patient did not tolerate the bowel prep and could only take about 30% of the bowel prep due to persistent nausea and episodes of vomiting. Patient continues to have black stools according to nursing and she had complained of some shortness of breath which improved with torsemide yesterday. No fever or chills, denies any hematemesis, no nausea or vomiting this morning, no abdominal pain. OBJECTIVE: Vital signs: Temperature 97.5, pulse 62, respiratory rate 19, blood pressure 140/55, 97% on 2 liters nasal cannula. General: Awake, alert, oriented to herself, answers questions appropriately. HEENT: Eyes closed, but appropriate speech. Face is symmetric. Tongue is midline. Neck: No JVD, no thyromegaly. Lungs: Diminished. Heart: S1 and S2 irregularly irregular. Chest: Left breast mastectomy. Abdomen: Soft, nontender, nondistended, obese, no guarding or rebound. Extremities: Chronic 2+ pitting edema. LABORATORY DATA: CBC and metabolic panel have been reviewed. IMAGING STUDIES: Reviewed. ASSESSMENT: 69-year-old -Omani female with a history of CVA in 2008 with chronic left sided weakness, chronic kidney disease stage 2, diastolic congestive heart failure with preserved systolic function, EF of 55%, pulmonary hypertension, ANGELINA on home oxygen at night, noncompliant with CPAP, anemia of chronic disease and iron deficiency and GI bleed, diverticulosis, breast cancer with mastectomy on the left admitted due to symptomatic anemia with complaints of shortness of breath, weakness and fatigue with hemoglobin of 7. Patient has developed antibodies from previous blood transfusions and blood transfusion had not been done overnight. IMPRESSION: 1. Acute GI bleed. 2. Acute blood loss anemia secondary to GI bleed. 3. Symptomatic anemia. 4. History of CVA with chronic left sided hemiparesis on chronic anticoagulation which has been held due to acute blood loss. 5. Chronic kidney disease stage 3 at baseline creatinine. 6. Diastolic congestive heart failure with preserved systolic function, EF of 55%. 7. COPD. 8. ANGELINA on chronic 2 liters oxygen at night. 9. Pulmonary hypertension. 10. History of CAD. 11. History of pulmonary sarcoidosis. 12. Type-2 diabetes. 13. Chronic atrial fibrillation off anticoagulation due to acute blood loss. 14. Hypothyroidism. 15. Osteoporosis. 16. History of breast cancer status post left mastectomy. 17. Morbid obesity, BMI of 48.2 complicating care. PLAN: Patient is currently on hypoglycemic protocol, n.p.o. status, did not tolerate the bowel prep, but we will proceed with EGD today on Protonix 40 I.V. twice a day. GI, Dr. Bautista has been consulted. Patient has not received any blood transfusion overnight due to antibodies detected on type and cross. Patient will be transfused 3 units of blood and will be monitored with repeat H&H. since she has symptomatic anemia we will try to determine the etiology. She is currently off antiplatelets as well as anticoagulant despite risk of stroke with chronic afib and history of CVA. Due to ongoing blood loss we have not put her on intravenous heparin drip. Kidney function is at baseline. Monitoring I's&O's. Currently on strict daily weights and fluid restriction. She had 7 episodes of emesis. Her Zofran has been changed to I.V. this morning. Continued on Synthroid and metoprolol for rate control for afib. MTDD
--- NOTE | 2020-08-15 11:14 | RO ---
OPERATIVE NOTE DATE OF OPERATION: 07/19/2020 PREOPERATIVE DIAGNOSIS: Anemia and epistaxis. POSTOPERATIVE DIAGNOSIS: Anemia and epistaxis. PROCEDURE PERFORMED: Nasal endoscopy. SURGEON: Lg Becker MD INTELLECTUAL PROPERTY LAWYER: ANESTHESIA: Sedation. INTRAOPERATIVE FINDINGS: Normal size nasal cavity, were free of active bleeding. No evidence of mass lesions or ulcerative lesions in her sphenopalatine areas and the remainder of the nasal cavity and the nasopharynx. CLINICAL PREAMBLE: This 69-year-old woman was admitted to the hospital due to anemia requiring multiple transfusions. She has had upper GI endoscopy earlier today. The patient mentioned that she had noticed some blood coming out from her oral cavity. She also noted to have intermittent epistaxis throughout her life. As such, I was consulted to evaluate the nasal cavity to rule out epistaxis as the main source of anemia. I discussed the procedures including nasal endoscopy with possible control of epistaxis with the patient. She understood and consented to the procedure. OR NARRATION: The patient was identified in the preholding area and brought to the operating room in stable condition. In supine position on the operating table, the patient received appropriate airway management consistent with local sedation and good oxygenation support. Both sides of the nasal cavity were decongested using pledgets soaked in oxymetazoline solution. After waiting a period, the pledgets were removed. Both sides of the nasal cavity were then inspected using the rigid 30 degree nasal endoscope. Under direct visualization, inspection was carried out for both the left and right side of the nasal cavity. The sphenopalatine areas on both sides of the nasal cavity were free of mucosal mass lesions. The nasopharynx was clear. Eustachian tube openings were patent, no mass lesion noted behind the areas. As there was no evidence of any active bleeding or old clots, the procedure was then terminated at this time without complication. The patient was then transferred to recovery room in stable condition.
== END 2020-07-24 12:35 | DRG 811 ==
LOC: M MSPAV 17:36 → M PCU 07-19 14:53 → M MS5PR 07-20 10:08
PROVIDERS: ADMIT General Practice; ATTEND General Practice
PROC: 30233N1 Transfusion of Nonautologous Red Blood Cells into Peripheral Vein, Percutaneous Approach (ICD-10-PCS; 2020-07-18)
PROC: 05H633Z Insertion of Infusion Device into Left Subclavian Vein, Percutaneous Approach (ICD-10-PCS; 2020-07-19)
PROC: 09JK8ZZ Inspection of Nasal Mucosa and Soft Tissue, Via Natural or Artificial Opening Endoscopic (ICD-10-PCS; 2020-07-19)
PROC: 0DJ08ZZ Inspection of Upper Intestinal Tract, Via Natural or Artificial Opening Endoscopic (ICD-10-PCS; principal; 2020-07-19 06:49)
DX: D62 Acute posthemorrhagic anemia (principal); K21.01 Gastro-esophageal reflux disease with esophagitis, with bleeding; K92.2 Gastrointestinal hemorrhage, unspecified; I69.354 Hemiplegia and hemiparesis following cerebral infarction affecting left non-dominant side; I13.0 Hypertensive heart and chronic kidney disease with heart failure and stage 1 through stage 4 chronic kidney disease, or unspecified chronic kidney disease; I50.32 Chronic diastolic (congestive) heart failure; D68.32 Hemorrhagic disorder due to extrinsic circulating anticoagulants; I48.20 Chronic atrial fibrillation, unspecified; Z68.42 Body mass index [BMI] 45.0-49.9, adult; J44.9 Chronic obstructive pulmonary disease, unspecified; N18.30 Chronic kidney disease, stage 3 unspecified; I25.10 Atherosclerotic heart disease of native coronary artery without angina pectoris; I27.20 Pulmonary hypertension, unspecified; G47.33 Obstructive sleep apnea (adult) (pediatric); Z85.3 Personal history of malignant neoplasm of breast; H40.9 Unspecified glaucoma; K25.9 Gastric ulcer, unspecified as acute or chronic, without hemorrhage or perforation; E66.01 Morbid (severe) obesity due to excess calories; Z99.3 Dependence on wheelchair; E11.22 Type 2 diabetes mellitus with diabetic chronic kidney disease; D86.0 Sarcoidosis of lung; M81.0 Age-related osteoporosis without current pathological fracture; E03.9 Hypothyroidism, unspecified; G89.29 Other chronic pain; Z79.01 Long term (current) use of anticoagulants; Z79.4 Long term (current) use of insulin; Z79.899 Other long term (current) drug therapy; Z88.1 Allergy status to other antibiotic agents; Z88.2 Allergy status to sulfonamides; Z88.8 Allergy status to other drugs, medicaments and biological substances; R04.0 Epistaxis; E11.649 Type 2 diabetes mellitus with hypoglycemia without coma

== ENCOUNTER → 2020-07-25 | Outpatient (REF) | payer MEDICARE, MEDICAID ==
[~2020-07-25] MED LIST changes: +ARTIDRO OU; +EYEL1MED TOP; +OCEA0.654; +PROL60SO SC; +SUCR1ORA PO; +TRUL10IN SC
[2020-07-25 09:31] LABS: HEMOGLOBIN 10.3 g/dl (12.0-15.5); MEAN CORPUSCULAR HEMOGLOBIN 28.6 pg (27.0-33.0); MEAN CORPUSCULAR HGB CONC 29.4 g/dl (32.0-36.5); MEAN CORPUSCULAR VOLUME 97.2 fl (80.0-96.0); PLATELET COUNT, AUTOMATED 176 10^3/uL (150-450); WHITE BLOOD COUNT 6.1 10^3/uL (4.0-10.0)
[2020-07-25 09:56] LABS: BLOOD UREA NITROGEN 41 MG/DL (7-18); CALCIUM LEVEL 8.4 MG/DL (8.8-10.2); CARBON DIOXIDE LEVEL 38 MEQ/L (21-32); CHLORIDE LEVEL 100 MEQ/L (98-107); CREATININE FOR GFR 1.08 MG/DL (0.55-1.30); GLOMERULAR FILTRATION RATE > 60.0 (>45); GLUCOSE, FASTING 200 MG/DL (70-100); POTASSIUM SERUM 3.6 MEQ/L (3.5-5.1); SODIUM LEVEL 139 MEQ/L (136-145)
== END ==
LOC: SKLAB2 08:00
DX: N17.9 Acute kidney failure, unspecified (principal); D64.9 Anemia, unspecified

== ENCOUNTER → 2020-08-07 | Outpatient (REF) | payer MEDICARE, MEDICAID ==
[2020-08-07 08:25] LABS: HEMATOCRIT 31.6 % (36.0-47.0); HEMOGLOBIN 9.2 g/dl (12.0-15.5); MEAN CORPUSCULAR HEMOGLOBIN 29.2 pg (27.0-33.0); MEAN CORPUSCULAR HGB CONC 29.1 g/dl (32.0-36.5); MEAN CORPUSCULAR VOLUME 100.3 fl (80.0-96.0); PLATELET COUNT, AUTOMATED 213 10^3/uL (150-450); RED BLOOD COUNT 3.15 10^6/uL (4.00-5.40); WHITE BLOOD COUNT 5.2 10^3/uL (4.0-10.0)
[2020-08-07 08:55] LABS: BLOOD UREA NITROGEN 31 MG/DL (7-18); CALCIUM LEVEL 8.6 MG/DL (8.8-10.2); CARBON DIOXIDE LEVEL 40 MEQ/L (21-32); CHLORIDE LEVEL 99 MEQ/L (98-107); CREATININE FOR GFR 1.12 MG/DL (0.55-1.30); GLOMERULAR FILTRATION RATE > 60.0 (>45); GLUCOSE, FASTING 87 MG/DL (70-100); POTASSIUM SERUM 3.4 MEQ/L (3.5-5.1); SODIUM LEVEL 140 MEQ/L (136-145)
== END ==
LOC: SKLAB2 09:02
DX: N17.9 Acute kidney failure, unspecified (principal); D64.9 Anemia, unspecified

== ENCOUNTER → 2020-08-14 | Outpatient (REF) | payer MEDICARE, MEDICAID ==
[2020-08-14 08:51] LABS: HEMATOCRIT 32.2 % (36.0-47.0); HEMOGLOBIN 9.3 g/dl (12.0-15.5); MEAN CORPUSCULAR HEMOGLOBIN 28.5 pg (27.0-33.0); MEAN CORPUSCULAR HGB CONC 28.9 g/dl (32.0-36.5); MEAN CORPUSCULAR VOLUME 98.8 fl (80.0-96.0); PLATELET COUNT, AUTOMATED 195 10^3/uL (150-450); RED BLOOD COUNT 3.26 10^6/uL (4.00-5.40); WHITE BLOOD COUNT 5.7 10^3/uL (4.0-10.0)
[2020-08-14 09:09] LABS: CALCIUM LEVEL 8.6 MG/DL (8.8-10.2); CREATININE FOR GFR 1.39 MG/DL (0.55-1.30); GLOMERULAR FILTRATION RATE 48.6 (>45); POTASSIUM SERUM 3.7 MEQ/L (3.5-5.1)
== END ==
LOC: SKLAB2 11:45
DX: D64.9 Anemia, unspecified (principal)

== ENCOUNTER → 2020-08-17 | Outpatient (REF) | payer MEDICARE, MEDICAID | LOC: SKLAB2 21:06 | DX: K27.9 Peptic ulcer, site unspecified, unspecified as acute or chronic, without hemorrhage or perforation (principal) ==

== ENCOUNTER → 2020-08-21 | Outpatient (REF) | payer MEDICARE, MEDICAID ==
[2020-08-21 10:34] LABS: HEMATOCRIT 32.4 % (36.0-47.0); HEMOGLOBIN 9.3 g/dl (12.0-15.5); MEAN CORPUSCULAR HEMOGLOBIN 28.9 pg (27.0-33.0); MEAN CORPUSCULAR HGB CONC 28.7 g/dl (32.0-36.5); MEAN CORPUSCULAR VOLUME 100.6 fl (80.0-96.0); PLATELET COUNT, AUTOMATED 180 10^3/uL (150-450); RED BLOOD COUNT 3.22 10^6/uL (4.00-5.40); WHITE BLOOD COUNT 6.3 10^3/uL (4.0-10.0)
[2020-08-21 10:59] LABS: CALCIUM LEVEL 8.7 MG/DL (8.8-10.2); CREATININE FOR GFR 1.44 MG/DL (0.55-1.30); GLOMERULAR FILTRATION RATE 46.7 (>45); POTASSIUM SERUM 3.6 MEQ/L (3.5-5.1)
== END ==
LOC: SKLAB2 08:33
DX: N19 Unspecified kidney failure (principal); D64.89 Other specified anemias

== ENCOUNTER → 2020-08-29 | Outpatient (REF) | payer MEDICARE, MEDICAID ==
[2020-08-29 09:08] LABS: HEMATOCRIT 32.8 % (36.0-47.0); HEMOGLOBIN 9.5 g/dl (12.0-15.5); MEAN CORPUSCULAR HEMOGLOBIN 28.9 pg (27.0-33.0); MEAN CORPUSCULAR VOLUME 99.7 fl (80.0-96.0); PLATELET COUNT, AUTOMATED 199 10^3/uL (150-450); RED BLOOD COUNT 3.29 10^6/uL (4.00-5.40); WHITE BLOOD COUNT 7.1 10^3/uL (4.0-10.0)
[2020-08-29 09:34] LABS: CALCIUM LEVEL 8.1 MG/DL (8.8-10.2); CREATININE FOR GFR 2.07 MG/DL (0.55-1.30); GLOMERULAR FILTRATION RATE 30.6 (>45); POTASSIUM SERUM 4.2 MEQ/L (3.5-5.1)
== END ==
LOC: SKLAB2 11:45
DX: N17.9 Acute kidney failure, unspecified (principal)

== ENCOUNTER → 2020-08-31 | Outpatient (REF) | payer MEDICARE, MEDICAID ==
[2020-08-31 14:50] LABS: CALCIUM LEVEL 7.7 MG/DL (8.8-10.2); CREATININE FOR GFR 1.7 MG/DL (0.55-1.30); GLOMERULAR FILTRATION RATE 38.4 (>45); POTASSIUM SERUM 4.3 MEQ/L (3.5-5.1)
== END ==
LOC: SKLAB2 11:46
DX: N17.9 Acute kidney failure, unspecified (principal)

== ENCOUNTER → 2020-09-03 | Outpatient (REF) | payer MEDICARE, MEDICAID ==
[~2020-09-03] MED LIST changes: +AUGM875T28 PO; +DOXY-350 PO; +ELIQ2.5T PO; +LOPE-39 PO; +PANT-23 PO; +ROCA0.25 PO; +SUCR1ORA2 PO
--- NOTE | 2020-09-03 21:00 | REPVR ---
PROCEDURE INFORMATION: Exam: XR Chest Exam date and time: 09/03/2020 8:25 PM Age: 70 years old Clinical indication: Shortness of breath; Additional info: Weight gain/sob TECHNIQUE: Imaging protocol: XR of the chest. Views: 1 view. COMPARISON: [facility] PORTABLE CHEST X-RAY 07/19/2020 2:15 PM FINDINGS: Lungs: There is pulmonary vascular congestion. Mild right basilar atelectasis. Pleural spaces: Suspect small effusions. No pneumothorax. Heart/Mediastinum: Stable cardiomegaly. Vasculature: Elongation of the thoracic aorta. Bones/joints: There is cervicothoracic dextroconvex curvature. There are degenerative changes involving the spine. Diffuse osteopenia. IMPRESSION: Small effusions with pulmonary vascular congestion. Electronically signed by: Christiano Doty On 09/03/2020 21:00:16 PM
== END ==
LOC: SKLAB2 19:59
DX: J90 Pleural effusion, not elsewhere classified (principal); I51.7 Cardiomegaly; J98.11 Atelectasis; R09.89 Other specified symptoms and signs involving the circulatory and respiratory systems

== ENCOUNTER → 2020-09-04 | Outpatient (REF) | payer MEDICARE, MEDICAID ==
[2020-09-04 09:53] LABS: HEMATOCRIT 35.5 % (36.0-47.0); HEMOGLOBIN 9.9 g/dl (12.0-15.5); MEAN CORPUSCULAR HEMOGLOBIN 28.9 pg (27.0-33.0); MEAN CORPUSCULAR HGB CONC 27.9 g/dl (32.0-36.5); MEAN CORPUSCULAR VOLUME 103.8 fl (80.0-96.0); PLATELET COUNT, AUTOMATED 210 10^3/uL (150-450); RED BLOOD COUNT 3.42 10^6/uL (4.00-5.40); WHITE BLOOD COUNT 4.5 10^3/uL (4.0-10.0)
[2020-09-04 10:20] LABS: CALCIUM LEVEL 7.1 MG/DL (8.8-10.2); CREATININE FOR GFR 1.66 MG/DL (0.55-1.30); GLOMERULAR FILTRATION RATE 39.5 (>45); POTASSIUM SERUM 4.6 MEQ/L (3.5-5.1)
== END ==
LOC: SKLAB2 13:11
DX: R06.02 Shortness of breath (principal); R63.5 Abnormal weight gain

== ENCOUNTER → 2020-09-11 | Outpatient (REF) | payer MEDICARE, MEDICAID ==
[~2020-09-11] MED LIST changes: -AUGM875T28 PO; -DOXY-350 PO; -ELIQ2.5T PO; -LOPE-39 PO; -PANT-23 PO; -ROCA0.25 PO; -SUCR1ORA2 PO
[2020-09-11 14:09] LABS: HEMATOCRIT 34.6 % (36.0-47.0); HEMOGLOBIN 9.9 g/dl (12.0-15.5); MEAN CORPUSCULAR HEMOGLOBIN 29.2 pg (27.0-33.0); MEAN CORPUSCULAR HGB CONC 28.6 g/dl (32.0-36.5); MEAN CORPUSCULAR VOLUME 102.1 fl (80.0-96.0); PLATELET COUNT, AUTOMATED 212 10^3/uL (150-450); RED BLOOD COUNT 3.39 10^6/uL (4.00-5.40)
[2020-09-11 14:46] LABS: CALCIUM LEVEL 7.2 MG/DL (8.8-10.2); CHOLESTEROL RISK RATIO 2.512 (<5); CREATININE FOR GFR 2.06 MG/DL (0.55-1.30); GLOMERULAR FILTRATION RATE 30.8 (>45); POTASSIUM SERUM 6.5 MEQ/L (3.5-5.1)
== END ==
LOC: SKLAB2 10:01
DX: D64.9 Anemia, unspecified (principal); I11.0 Hypertensive heart disease with heart failure; I50.9 Heart failure, unspecified; Z79.01 Long term (current) use of anticoagulants

== ENCOUNTER → 2020-09-12 | Outpatient (REF) | payer MEDICARE, MEDICAID ==
[~2020-09-12] MED LIST changes: +ELIQ2.5T PO; +PANT-23 PO; +ROCA0.25 PO; +SUCR1ORA2 PO
[2020-09-12 11:55] LABS: CALCIUM LEVEL 7.7 MG/DL (8.8-10.2); CREATININE FOR GFR 2.07 MG/DL (0.55-1.30); GLOMERULAR FILTRATION RATE 30.6 (>45)
== END ==
LOC: SKLAB2 13:12
DX: E87.5 Hyperkalemia (principal); K25.9 Gastric ulcer, unspecified as acute or chronic, without hemorrhage or perforation

== ENCOUNTER → 2020-09-13 | Outpatient (REF) | payer MEDICARE, MEDICAID | LOC: SKLAB2 13:13 | DX: Z53.8 Procedure and treatment not carried out for other reasons (principal) ==

== ENCOUNTER 2020-09-14 12:25 | Inpatient (IN) | payer MEDICAID, MEDICARE ==
[~2020-09-14] VITALS: Ht 152.4 cm; Wt 105.6 kg
[~2020-09-14 12:25] MED LIST changes: -AUGM875T28 PO; -DOXY-350 PO; -ELIQ2.5T PO; -LOPE-39 PO; -PANT-23 PO; -ROCA0.25 PO; -SUCR1ORA2 PO
[2020-09-14] MEDS ORDERED: PANT-23 PO (13:09)
[2020-09-14] MEDS ORDERED: ASPI81TA26 PO (13:09)
[2020-09-14] MEDS ORDERED: SUCR1ORA2 PO (13:09)
[2020-09-14] MEDS ORDERED: ELIQ2.5T PO (13:09)
[2020-09-14] MEDS ORDERED: ROCA0.25 PO (13:09)
[2020-09-14 13:56] LABS: BASO # 0.1 10^3/uL (0.0-0.2); EOS # 0.2 10^3/uL (0.0-0.5); EOS % 3.3 % (0.0-3.0); LYMPH # 0.7 10^3/uL (1.5-5.0); LYMPH % 14.4 % (24.0-44.0); MEAN CORPUSCULAR HEMOGLOBIN 29.7 pg (27.0-33.0); MEAN CORPUSCULAR HGB CONC 28.6 g/dl (32.0-36.5); MEAN CORPUSCULAR VOLUME 103.9 fl (80.0-96.0); MONO # 1.1 10^3/uL (0.0-0.8); MONO % 23.2 % (2.0-8.0); NEUTROPHILS # 2.8 10^3/uL (1.5-8.5); NEUTROPHILS % 57.7 % (36.0-66.0); PLATELET COUNT, AUTOMATED 165 10^3/uL (150-450); RED BLOOD COUNT 3.37 10^6/uL (4.00-5.40); WHITE BLOOD COUNT 4.8 10^3/uL (4.0-10.0)
[2020-09-14] MEDS ORDERED: LACTULOSE 20 GM/30 ML SYRUP UD PO ONE (15:10)
--- NOTE | 2020-09-14 15:15 | REP ---
INDICATION: Altered Mental Status. COMPARISON: 09/03/2020. TECHNIQUE: Single portable AP view of the chest was performed. FINDINGS: Cardiomegaly persists. There is dense perihilar infiltrate bilaterally which has mildly increased. IMPRESSION: Bilateral infiltrates appear mildly increased compared to the prior study. <Electronically signed by Bello Alas > 09/14/20 [id number]
[2020-09-14 17:02] LABS: CALCIUM LEVEL 7.9 MG/DL (8.8-10.2); CREATININE FOR GFR 2.07 MG/DL (0.55-1.30); GLOMERULAR FILTRATION RATE 30.6 (>45); POTASSIUM SERUM 5.5 MEQ/L (3.5-5.1)
[2020-09-14 17:03] LABS: BILIRUBIN,DIRECT 0.6 MG/DL (0.0-0.2); BILIRUBIN,TOTAL 0.7 MG/DL (0.2-1.0); CK-MB VALUE MASS 2.2 NG/ML (<3.6); FREE T4 1.43 NG/DL (0.76-1.46); MAGNESIUM LEVEL 2.9 MG/DL (1.8-2.4); MB/CK RELATIVE INDEX 0.79 (< OR =4); THYROID STIMULATING HORMONE 1.73 uIU/ML (0.358-3.740); TROPONIN I 0.05 NG/ML (< 0.10)
[2020-09-14] MEDS ORDERED: NS 1,000 ML IV SCH (17:35)
[2020-09-14 18:21] LABS: RSV AMPLIFICATION NEGATIVE (NEGATIVE)
[2020-09-14 18:26] LABS: C REACTIVE PROTEIN QUANTITATIV 2.78 MG/DL (0.00-0.30)
[2020-09-14] MEDS ORDERED: BISACODYL 10 MG SUPP PR PRN (18:35)
[2020-09-14] MEDS ORDERED: SODIUM CHLORIDE NASAL 0.65% SPRAY BTL (OCEAN) PRN (18:35)
[2020-09-14] MEDS ORDERED: MOM 30ML SUSPENSION UDC PO PRN (18:35)
--- NOTE | 2020-09-14 19:21 | HPE ---
HISTORY AND PHYSICAL DATE OF ADMISSION: 09/14/2020 CHIEF COMPLAINT: Confusion, cough, sob. HISTORY OF PRESENT ILLNESS: This is a 70-year-old -Kos[place], morbidly obese female with past medical history significant for cerebrovascular accident (CVA), chronic obstructive pulmonary disease (COPD), hypertension, chronic kidney disease stage III, diastolic heart failure, ejection fraction (EF) of 65%, pulmonary sarcoidosis, pulmonary hypertension, obstructive sleep apnea, Pickwickian syndrome, noncompliant with continuous positive airway pressure (CPAP), uses oxygen at night, anemia of chronic disease, gastrointestinal (GI) bleed, seizures, diverticulosis, breast cancer with mastectomy 2013, wheelchair-bound and disabled, [facility], brought in due to one week history of confusion, dry cough. Patient says she has had trouble concentrating. Denies any fever or chills. She felt a little short of breath, increase in lower extremity edema, but without chest pain, nausea, vomiting or diarrhea, and complains of decrease in appetite. Patient otherwise denies any urgency, frequency. She was brought in to the emergency room for further evaluation, was found to have elevated ammonia level of 134, found to have a potassium of 5.5 and a creatinine of 2.07. Patient was coronavirus negative. Chest x-ray shows a chronic consolidation in the perihilar area with bilateral infiltrates slightly increased. Hospitalist was called to admit the patient for acute hepatic encephalopathy with elevated ammonia level, hyperkalemia and acute on chronic renal failure. PAST MEDICAL HISTORY: 1. Cerebrovascular accident (CVA) 2008. 2. Chronic left-sided weakness. 3. Chronic obstructive pulmonary disease (COPD). 4. Hypertension. 5. Chronic kidney disease (CKD) stage II to III. 6. Diastolic heart failure, ejection fraction (EF) 65%. 7. Coronary artery disease (CAD). 8. Pulmonary sarcoidosis. 9. Pulmonary hypertension. 10. Obstructive sleep apnea. 11. Pickwickian syndrome. 12. Noncompliance with continuous positive airway pressure (CPAP). 13. Morbid obesity. 14. Uses oxygen at night. 15. Gastrointestinal (GI) bleed. 16. Anemia of chronic disease. 17. Diverticulosis. 18. Unclear history of seizures, off Dilantin. 19. Breast cancer with mastectomy 2013. 20. Glaucoma. 21. Type 2 diabetes. PAST SURGICAL HISTORY: 1. Hysterectomy. 2. Left breast biopsy. 3. Left breast mastectomy. 4. Right-sided Infusaport placement 2017, removed 2019. SOCIAL HISTORY: [facility] resident. No alcohol use. Wheelchair-bound and disabled. ALLERGIES: SULFA, ATORVASTATIN, BACLOFEN, CLINDAMYCIN, DULOXETINE, LEVETIRACETAM, LISINOPRIL, TOPIRAMATE, TRAMADOL. HOME MEDICATIONS: - acetaminophen 650 mg per rectum every 4 hours, 650 mg twice a day, 650 every 8 hours as needed - Eliquis 250 mg twice a day - vitamin C 500 mg daily - aspirin 81 mg daily - bisacodyl 10 mg suppository daily as needed - brimonidine tartrate one drop both eyes three times a day - calcitriol 0.25 mcg daily - Prolia injections - Colace 100 mg daily - ferrous sulfate 325 mg daily - hyperglycemic protocol - guaifenesin 5 mL by mouth every 4 hours as needed for cough - hydrocodone one tablet twice a day - Lantus insulin 25 units subcutaneous daily - albuterol ipratropium nebulizer every 6 hours - Synthroid 137 mcg every morning - metoprolol 50 mg twice a day - Mild of Magnesia 10 mL daily as needed for constipation - Protonix 40 mg daily - MiraLax 17 grams daily - Seroquel 50 mg daily - rosuvastatin 20 mg daily - Senokot 1 tablet daily - Saluda nasal spray as needed every 4 hours - Carafate 1 gram in the morning and at bedtime - torsemide 20 mg daily. FAMILY HISTORY: Patient does not know. REVIEW OF SYSTEMS: A 12 point system otherwise negative. PHYSICAL EXAMINATION: VITAL SIGNS: Temperature 97.7, pulse 53, respirator rate 18, blood pressure 116/60, 100% on room air. GENERAL: Patient is awake, alert, oriented to herself and place. No respiratory distress. HEENT: No icterus, jaundice or pallor. Unable to assess for jugular venous distention (JVD). No thyromegaly or cervical lymphadenopathy. Moist mucous membranes. LUNGS: Diminished with bilateral crackles. HEART: S1, S2. Irregularly irregular. Not tachycardic. ABDOMEN: Obese. Soft, nontender, nondistended. Positive bowel sounds. EXTREMITIES: 2+ pitting edema bilaterally. NEUROLOGIC: Left-sided weakness, chronic. LABORATORY DATA: White count 4.8, hemoglobin 10, hematocrit 35, platelet count 165. Sodium 141, potassium 5.5, chloride 105, bicarbonate 35, BUN 59, creatinine 2.07, glucose 60. Previous creatinine also 2.07 from 09/12/2020. Baseline creatinine is 1.5 to 1.6. Chest x-ray: Bilateral infiltrates. ASSESSMENT: This is a 70-year-old female brought in from [facility] due to hyperkalemia, altered mental status, found to have elevated ammonia level with hepatic encephalopathy. Active issues are as follows: 1. Acute metabolic encephalopathy. 2. Hyperkalemia. 3. Acute hepatic encephalopathy with elevated ammonia level of 134. 4. Acute on chronic kidney failure stage III, baseline creatinine 1.5 to 1.6 5. Super-morbid obesity. 6. Paroxysmal atrial fibrillation, rate controlled on chronic anticoagulation. 7. History of gastroesophageal (GI) bleed and blood loss anemia, currently compensated. 8. Chronic obstructive pulmonary disease (COPD), compensated. 9. Diastolic congestive heart failure, ejection fraction 65%., acute decompensated 10. Hypertension. 11. Obstructive sleep apnea. 12. Pickwickian syndrome. 13. Pulmonary hypertension. 14. History of coronary artery disease (CAD). 15. Pulmonary sarcoidosis. 16. History of breast cancer status post mastectomy. 17. Type 2 diabetes. 18. Reflux disease. 19. Hypothyroidism. 20. Osteoporosis. PLAN: Patient will be admitted as an inpatient for two midnights due to hepatic encephalopathy with hyperammonemia as well as hyperkalemia with acute on chronic renal failure stage III due to decompensated chf diastolic dysfunction with preserved systolic function. strict i/o fluid restriction weigh daily and iv lasix while monitoring electrolytes and creatinine with serial bmp, mg, and if needed ionized calciu. Elevated ammonia is most likely due to hepatic congestion from chf with right sided heart failure, and will be treated accordingly. Patient will be given lactulose every 4hours until patient's mentation is improved. She may be resumed on all other medications for now. Deep venous thrombosis (DVT) prophylaxis: She is on chronic anticoagulation and antiplatelet therapy and will need to be monitored for any signs of bleeding. She has been given kayexalate for elevated potassium. o2 sat titrated to 88-92%. MTDD
--- NOTE | 2020-09-14 19:56 | ECGEPIP ---
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
[2020-09-14 20:20] VITALS: BP 107/48
[2020-09-14] MEDS ORDERED: SOD POLYSTYRENE SULFONATE SUSP 15 GM/60 ML UD PO ONE (20:40)
[2020-09-14] MEDS: SUCRALFATE SUSP 1GM/10ML UD PO SCH (21:31)
[2020-09-14] MEDS: ROSUVASTATIN 10 MG TAB (CRESTOR) PO SCH (21:32)
[2020-09-14] MEDS: BRIMONIDINE 0.15% OPHTH SOLN 5 ML OU SCH (21:32)
[2020-09-14] MEDS: LACTULOSE 20 GM/30 ML SYRUP UD PO SCH ×2 (21:32→23:26)
[2020-09-14] MEDS: PANTOPRAZOLE 40MG TAB (PROTONIX) PO SCH (21:32)
[2020-09-14] MEDS: APIXABAN 2.5 MG TAB (ELIQUIS) PO SCH (21:32)
[2020-09-15] MEDS: LACTULOSE 20 GM/30 ML SYRUP UD PO SCH ×3 (00:46→11:14)
[2020-09-15] MEDS ORDERED: FUROSEMIDE 40MG/4ML VIAL (J1940) IV SCH (01:00)
[2020-09-15 01:27] VITALS: BP 122/65
[2020-09-15] MEDS ORDERED: GLUCAGON INJ 1MG VIAL SC PRN (01:30)
[2020-09-15] MEDS ORDERED: DEXTROSE 50% 50 ML SYRINGE IV PRN (01:30)
[2020-09-15] MEDS ORDERED: GLUCOSE 4GM CHEW TABLET PO PRN (01:30)
[2020-09-15 06:00] VITALS: BP 125/64
[2020-09-15] MEDS: LEVOTHYROXINE 137MCG TABLET (0.137MG) PO SCH (06:08)
[2020-09-15] MEDS ORDERED: LEVEMIR (INSULIN DETEMIR) 1 UNITS/0.01ML SC SCH (09:00)
[2020-09-15] MEDS ORDERED: APIXABAN 2.5 MG TAB (ELIQUIS) PO SCH (09:00)
[2020-09-15] MEDS ORDERED: ASPIRIN 81MG ENTERIC TABLET PO SCH (09:00)
[2020-09-15] MEDS ORDERED: metOLazone 5 MG TAB PO ONE (09:30)
[2020-09-15] MEDS: SENOKOT S TAB PO SCH (09:52)
[2020-09-15] MEDS: PANTOPRAZOLE 40MG TAB (PROTONIX) PO SCH (09:52)
[2020-09-15] MEDS: BRIMONIDINE 0.15% OPHTH SOLN 5 ML OU SCH ×3 (09:52→21:53)
[2020-09-15] MEDS: APIXABAN 2.5 MG TAB (ELIQUIS) PO SCH (09:52)
[2020-09-15] MEDS: QUEtiapine FUMARATE 50MG TAB PO SCH (09:52)
[2020-09-15] MEDS: FERROUS SULFATE 325MG TAB PO SCH (09:52)
[2020-09-15] MEDS: ASCORBIC ACID 500 MG TAB PO SCH (09:52)
[2020-09-15] MEDS: CALCITRIOL 0.25 MCG CAP (S0169) PO SCH (09:52)
[2020-09-15] MEDS: MIRALAX *UNIT DOSE* 17GM PACKET PO SCH (09:53)
[2020-09-15] MEDS: SUCRALFATE SUSP 1GM/10ML UD PO SCH ×4 (09:55→21:39)
[2020-09-15] MEDS ORDERED: FUROSEMIDE 100MG/10ML VIAL (J1940) IV ONE (10:00)
[2020-09-15] MEDS ORDERED: PANTOPRAZOLE 40MG VIAL (C9113 PER 1) IV ONE (10:45)
[2020-09-15] MEDS ORDERED: PANTOPRAZOLE SODIUM 40 MG in D5W 50 ML IV SCH (11:00)
[2020-09-15] MEDS ORDERED: SODIUM CHLORIDE NASAL 0.65% SPRAY BTL (OCEAN) PRN ×2 (11:05→18:05)
[2020-09-15] MEDS: MIDODRINE 5 MG TAB PO SCH ×2 (12:00→16:00)
[2020-09-15] MEDS ORDERED: LIDOCAINE 1% MDV 20ML VIAL As Ordered ONE (13:00)
[2020-09-15] MEDS ORDERED: LIDOCAINE 1% MDV 20ML VIAL SC ONE ×2 (13:05→14:00)
--- NOTE | 2020-09-15 13:27 | IPN ---
PROGRESS NOTE DATE: 09/14/2020 SUBJECTIVE: Patient still complains of shortness of breath status post intravenous (IV) Lasix with urine output not documented. Patient denies any fever or chills, continues to have cough productive of white sputum. No other issues per nursing overnight. Patient has been having bowel movements due to lactulose for elevated ammonia level. Her mentation is much improved from yesterday. Phlebotomy was difficult this morning. Unable to obtain any laboratory data. Patient says that she had two episodes of bright red hematemesis on Eliquis for cerebrovascular accident (CVA). PHYSICAL EXAMINATION: VITAL SIGNS: Temperature 96.7, pulse 58, respiratory rate 16, blood pressure 125/64, 100% on 2 liters nasal cannula. GENERAL: Patient is awake, alert, oriented to herself, answers questions appropriately, slightly lethargic, but appropriate. She has mild respiratory distress and whispers when she speaks. HEENT: Neck is thick and difficult to assess for jugular venous distention. Dry mucous membranes. LUNGS: Diminished. Bilateral rales. HEART: S1, S2. Sinus bradycardia. ABDOMEN: Obese. Soft, nontender, nondistended. Positive bowel sounds. EXTREMITIES: Chronic 3+ pitting edema to the sacrum. LABORATORY DATA: Unavailable, since the patient was a difficult stick, unable to obtain blood work. ASSESSMENT: This is a 70-year-old female admitted on 09/14/2020 with morbid obesity, body mass index (BMI) of 56, diastolic congestive heart failure, ejection fraction 65%, chronic kidney disease (CKD) stage II to III at baseline, hypertension, chronic obstructive pulmonary disease (COPD), cerebrovascular accident (CVA) with chronic left-sided weakness, obstructive sleep apnea, pulmonary hypertension and pulmonary sarcoidosis, noncompliant with continuous positive airway pressure (CPAP), morbid obesity, uses oxygen at night, gastrointestinal (GI) bleed with anemia of chronic disease, diverticulosis, breast cancer, glaucoma, type 2 diabetes, on chronic Eliquis 2.5 mg, on chronic Carafate and Protonix twice a day. IMPRESSION: 1. Acute diastolic congestive heart failure exacerbation. 2. Acute on chronic renal failure stage III. 3. History of cerebrovascular accident (CVA), chronic left-sided weakness, on chronic Eliquis. 4. History of gastrointestinal (GI) bleed, on Carafate and Protonix. 6. Morbid obesity with obstructive sleep apnea (ANGELINA), on oxygen at night. 7. Anemia of chronic disease and blood loss. 8. Poor IV access. PLAN: Patient will be continued on diuresis. Change oral Protonix to Protonix drip for now. Hold her dose of aspirin and Eliquis due to complaints of hematemesis. If no recurrent episodes, may resume in the morning. Dr. Toth has been consulted for central line placement. Continue on lactulose and Kayexalate until creatinine and potassium are normal. Strict intake and output and daily weights. Hold patient's Levemir insulin due to decrease in patient's oral intake and to prevent hyperglycemia. Pt was transferred to PCU for central line placement. Thoracic surgical consult Dr. Hicks. Due to soft bloodpressure, trial of midodrine 10 mg tid and lasix iv gtt instead of lasix iv bolus. MTDD
--- NOTE | 2020-09-15 13:43 | REP ---
INDICATION: s/p central line placement. COMPARISON: Comparison radiographs are from September 14, 2020. TECHNIQUE: Portable upright AP chest radiograph. FINDINGS: A left subclavian central venous catheter is been inserted with its tip in the expected location of the superior vena cava. There is no visible pneumothorax. There is right pleural thickening again noted unchanged with some slight fissural thickening suggesting a small amount of right effusion. Cardiac enlargement is observed as before. Pulmonary vasculature appears centrally prominent and congested. Perihilar infiltrates are little less prominent radiographically.. IMPRESSION: Left subclavian central venous line in place. No evidence of pneumothorax. Vascular congestion and perihilar infiltrates. Mildly enlarged heart.. <Electronically signed by Thomas Florentino > 09/15/20 [id number]
--- NOTE | 2020-09-15 13:47 | RO ---
OPERATIVE NOTE DATE OF OPERATION: 09/15/2020 INDICATIONS FOR PROCEDURE: I was asked to urgently see the patient for central line access as no one can get an IV. Dr. Ttoh previously tried internal jugular and could not spread the wire. PREOPERATIVE DIAGNOSIS: POSTOPERATIVE DIAGNOSIS: PROCEDURE: SURGEON: Marvin Hicks M.D. HIDE AND SKIN CLASSER: None. ANESTHESIA: 1% Lidocaine. DESCRIPTION OF PROCEDURE: The patient's infraclavicular fossa was therefore prepped and draped in the usual sterile fashion. The skin, subcutaneous tissue, and periosteum of the clavicle was infiltrated with 1% Lidocaine. The patient was placed in steep Trendelenburg position. The vein was found on the third pass. The wire went well. The tract was dilated and the catheter was fitted over the guidewire without difficulty. Ports were aspirated and flushed. Catheter was secured to the chest wall with two 2-0 silk sutures. The patient tolerated the procedure well and a chest x-ray is pending.
--- NOTE | 2020-09-15 14:15 | ROOPDOC ---
[facility] Report Of Operation Report of Operation DATE OF PROCEDURE: 09/15/20 PREPROCEDURE DIAGNOSES: Poor peripheral IV access POSTPROCEDURE DIAGNOSES: Persistent poor peripheral IV access PROCEDURE: Insertion of central venous triple lumen catheter in to right internal jugular vein SURGEON: Dr. Bello Toth D.O.; General warp picker: Dr. Jamar Penaloza D.O.; PGY-2 ANESTHESIA: 2% lidocaine ESTIMATED BLOOD LOSS: Approximately 5 mL. COMPLICATIONS: Resistance to threading guide wire that ultimately aborted procedure PROCEDURE NOTE: Internal Jugular Central Line Procedure Note INDICATION: _ PROCEDURE SALES ENABLEMENT SPECIALIST: _ ATTENDING PHYSICIAN: _ In Attendance (Y/N)_ CONSENT: Consent was obtained from with requisite documentation signed prior to the procedure. Indications, risks, and benefits were explained at length. PROCEDURE SUMMARY: My hands were washed immediately prior to the procedure. I wore a surgical cap, mask with protective eyewear, full gown and sterile gloves throughout the procedure. The patient was placed in Trendelenburg position. Right chest region was prepped using chlorhexidine scrub and draped in sterile fashion using a full drape and sterile probe cover employed. The medial and lateral heads of the sternocleidomastoid muscle were identified as was the carotid pulse. The Internal Jugular vein was identified using the ultrasound. Anesthesia was achieved over the vein using 2% lidocaine. Using real-time out of plane guidance, the introducer needle was inserted into the Internal Jugular vein under direct ultrasound visualization. Venous blood was withdrawn. The syringe was removed and advancement of guidewire through the introducer needle was attempted multiple times but there was consistent resistance to further advancement. As a result of repeated resistance when trying to thread the guide wire, the procedure was ultimately aborted. Pressure was held against the skin puncture site with gauze to limit blood loss and encourage hemostasis. The area involved was thoroughly cleaned and all sharps were removed from the field and discarded properly. There was approximately 5 cc of blood loss during the procedural attempt. JAMAR PENALOZA D.O. Sep 15, 2020 14:15
[2020-09-15 14:54] VITALS: BP 167/74
[2020-09-15 15:00] LABS: HEMATOCRIT 33.5 % (36.0-47.0); HEMOGLOBIN 9.4 g/dl (12.0-15.5); MEAN CORPUSCULAR HEMOGLOBIN 29.3 pg (27.0-33.0); MEAN CORPUSCULAR HGB CONC 28.1 g/dl (32.0-36.5); MEAN CORPUSCULAR VOLUME 104.4 fl (80.0-96.0); PLATELET COUNT, AUTOMATED 177 10^3/uL (150-450); RED BLOOD COUNT 3.21 10^6/uL (4.00-5.40); WHITE BLOOD COUNT 4.8 10^3/uL (4.0-10.0)
[2020-09-15 15:35] LABS: ALBUMIN 2.7 GM/DL (3.2-5.2); BILIRUBIN,TOTAL 0.8 MG/DL (0.2-1.0); CALCIUM LEVEL 7.3 MG/DL (8.8-10.2); CREATININE FOR GFR 1.9 MG/DL (0.55-1.30); GLOMERULAR FILTRATION RATE 33.8 (>45); MAGNESIUM LEVEL 2.7 MG/DL (1.8-2.4); POTASSIUM SERUM 4.2 MEQ/L (3.5-5.1); TOTAL PROTEIN 7.5 GM/DL (6.4-8.2)
[2020-09-15] MEDS ORDERED: SODIUM CHLORIDE NASAL 0.65% SPRAY BTL (OCEAN) SCH (16:00)
[2020-09-15] MEDS ORDERED: SODIUM CHLORIDE 0.9% INJ 10 ML SYR IV PRN (16:05)
[2020-09-15] MEDS ORDERED: OXYMETAZOLINE 0.05% NASAL SPRAY (AFRIN) PRN (18:05)
--- NOTE | 2020-09-15 18:07 | IPNPDOC ---
Date Seen The patient was seen on 09/15/20. Progress Note Addendum to progress note: epistaxis in the setting of eliquis and aspirin for AFIB/CVA with o2 NC. plan: -discussed case w/ ENT agronomy instructor Dr. Wakefield who recommended not packing since pts will have more trouble breathing, and trying afrin nasal spray and saline. -dc asa -dc eliquis -humidified oxygen VS, I&O, 24H, Fishbone Vital Signs/I&O Vital Signs Date Time Temp Pulse Resp B/P (MAP) Pulse Ox O2 Delivery O2 Flow Rate FiO2 09/15/20 14:54 97.0 75 18 167/74 (105) 97 Nasal Cannula 09/15/20 09:00 2.0 I&O- Last 24 Hours up to 6 AM 09/15/20 06:00 Intake Total 1830 ml Output Total 0 ml Balance 1830 ml Laboratory Data 24H LABS Laboratory Tests 2 09/14/20 19:21: Erythrocyte Sedimentation Rate 45H 09/15/20 01:23: Bedside Glucose (Misc Panel) 51L 09/15/20 01:46: Bedside Glucose (Misc Panel) 91 09/15/20 06:15: Bedside Glucose (Misc Panel) 52L 09/15/20 06:37: Bedside Glucose (Misc Panel) 65L 09/15/20 07:12: Bedside Glucose (Misc Panel) 87 09/15/20 11:20: Bedside Glucose (Misc Panel) 129H 09/15/20 14:48: Nucleated Red Blood Cells % (auto) 0.0, Anion Gap 2L, Glomerular Filtration Rate 33.8L, Calcium Level 7.3L, Magnesium Level 2.7H, Total Bilirubin 0.8, Aspartate Amino Transf (AST/SGOT) 27, Alanine Aminotransferase (ALT/SGPT) 22, Alkaline Phosphatase 197H, Ammonia 107H, Total Protein 7.5, Albumin 2.7L, Albumin/Globulin Ratio 0.6L CBC/BMP Laboratory Tests 09/15/20 14:48 Microbiology Microbiology 09/15/20 Stool Occult Blood (EREN) - Final, Complete 09/14/20 Respiratory Virus Panel (PCR) (EREN) - Final, Complete 09/14/20 Blood Culture - Preliminary, Resulted No growth after 24 hours . All specim... 09/14/20 Blood Culture - Preliminary, Resulted No growth after 24 hours . All specim... RODRIGUE COTTO MD Sep 15, 2020 18:07
[2020-09-15] MEDS ORDERED: OXYMETAZOLINE 0.05% NASAL SPRAY (AFRIN) ONE (19:00)
[2020-09-15 20:00] VITALS: BP 144/87
[2020-09-15] MEDS: ROSUVASTATIN 10 MG TAB (CRESTOR) PO SCH (21:40)
[2020-09-15] MEDS: SODIUM CHLORIDE 0.9% INJ 10 ML SYR IV SCH (21:41)
[2020-09-15] MEDS: SODIUM CHLORIDE NASAL 0.65% SPRAY BTL (OCEAN) SCH (21:50)
[2020-09-16 00:30] VITALS: BP 141/65
[2020-09-16] MEDS: SODIUM CHLORIDE NASAL 0.65% SPRAY BTL (OCEAN) SCH ×6 (00:31→20:20)
[2020-09-16 04:31] LABS: HEMATOCRIT 34.4 % (36.0-47.0); HEMOGLOBIN 9.6 g/dl (12.0-15.5); MEAN CORPUSCULAR HEMOGLOBIN 29.3 pg (27.0-33.0); MEAN CORPUSCULAR HGB CONC 27.9 g/dl (32.0-36.5); MEAN CORPUSCULAR VOLUME 104.9 fl (80.0-96.0); PLATELET COUNT, AUTOMATED 166 10^3/uL (150-450); RED BLOOD COUNT 3.28 10^6/uL (4.00-5.40); WHITE BLOOD COUNT 5.7 10^3/uL (4.0-10.0)
[2020-09-16 04:35] VITALS: BP 143/63
[2020-09-16 04:46] LABS: CALCIUM LEVEL 7.5 MG/DL (8.8-10.2); GLOMERULAR FILTRATION RATE 31.9 (>45); MAGNESIUM LEVEL 2.5 MG/DL (1.8-2.4); POTASSIUM SERUM 4.5 MEQ/L (3.5-5.1)
[2020-09-16] MEDS ORDERED: FUROSEMIDE 100MG/10ML VIAL (J1940) IV ONE (05:10)
[2020-09-16] MEDS: SODIUM CHLORIDE 0.9% INJ 10 ML SYR IV SCH ×3 (05:48→21:26)
[2020-09-16] MEDS: LEVOTHYROXINE 137MCG TABLET (0.137MG) PO SCH (06:53)
--- NOTE | 2020-09-16 07:01 | REPVR ---
PROCEDURE INFORMATION: Exam: XR Chest Exam date and time: 09/16/2020 5:43 AM Age: 70 years old Clinical indication: Other: SOB TECHNIQUE: Imaging protocol: XR of the chest. Views: 1 view. COMPARISON: [facility] PORTABLE CHEST X-RAY 09/15/2020 1:14 PM FINDINGS: Tubes, catheters and devices: Stable positioning of central venous catheter. Lungs: Interstitial prominence and asymmetric airspace disease, with marked interval worsening in right-sided airspace disease. Pleural spaces: Small pleural effusions. Heart/Mediastinum: Cardiomegaly. Bones/joints: Degenerative change. IMPRESSION: Interstitial prominence and asymmetric airspace disease, with marked interval worsening in right-sided airspace disease. Electronically signed by: Roman Harper On 09/16/2020 07:01:24 AM
--- NOTE | 2020-09-16 07:22 | REPVR ---
PROCEDURE INFORMATION: Exam: US Duplex Lower Extremity Veins, Bilateral Exam date and time: 09/16/2020 6:41 AM Age: 70 years old Clinical indication: Edema, localized; Lower extremity, bilateral; Additional info: Edema R/O dvt TECHNIQUE: Imaging protocol: Real-time duplex ultrasound of the extremities with 2-D peoples scale, color Doppler flow and spectral waveform analysis with image documentation. Complete exam focused on the bilateral lower extremity veins. COMPARISON: US Duplex, Ext,LOWER veins,unilat LEFT 12/14/2017 10:23 AM FINDINGS: Evaluation is limited by patient body habitus. Right deep veins: No evidence for occlusive deep venous thrombosis in the visualized right common femoral, superficial femoral, or popliteal veins. Right superficial veins: Saphenofemoral junction is patent without thrombus. Left deep veins: Subcutaneous edema.No evidence for occlusive deep venous thrombosis in the visualized left common femoral, superficial femoral, or popliteal veins. Left superficial veins: Saphenofemoral junction is patent without thrombus. Soft tissues: Subcutaneous edema. IMPRESSION: 1. Evaluation is limited by patient body habitus. 2. No evidence for occlusive deep venous thrombosis in the visualized bilateral lower extremities. Electronically signed by: Roman Harper On 09/16/2020 07:22:15 AM
[2020-09-16 07:42] VITALS: BP 166/71
--- NOTE | 2020-09-16 08:27 | IPN ---
PROGRESS NOTE DATE: 09/16/2020 SUBJECTIVE: Yesterday, the patient was transferred to PCU due to need for central line placement due to poor venous access, unable to obtain labs and administer medication. She had episode of epistaxis and her anticoagulant, Eliquis has been discontinued per ear, nose and throat surgeon. The patient is to have Afrin and nasal saline sprays. The patient is adamant about not resuming her Eliquis despite risk of recurrent CVA. At this time, shortness of breath has not improved at all despite Lasix 60 mg given yesterday. Urine output was not documented as the patient refused to have a Nails catheter placed and she is incontinent of urine. The patient is refusing restarting her anticoagulant and refusing Nails catheter. No chest pain, pressure, tightness, lightheadedness or dizziness. Epistaxis has resolved, currently had humidified oxygen, saline nasal spray as needed and Afrin as needed. She is off anticoagulation. Vitals: Temperature 98.1, pulse 78, respiratory rate 18, blood pressure 143/63, 100% on two liters nasal cannula and generally, the patient is awake, alert and oriented to person, place and time, answering questions appropriately. The patient has dried blood in the nares with humidified oxygen via nasal cannula. The central line has no erythema, tenderness, crepitus. Status post left subclavian triple lumen catheter. OBJECTIVE: PHYSICAL EXAM: Vitals: Temperature 98.1, pulse 78, respiratory rate 18, blood pressure 143/63, 100% on two liters nasal cannula. General: Left subclavian catheter, no distress, unable to assess for JVD, thick neck, dry mucous membranes. Lungs: Diminished. Bilateral crackles. Heart: S1, S2, regular rate and rhythm. Abdomen: Obese, soft, nontender. Extremities: 3+ pitting edema to the sacrum. LABORATORY DATA: CBC, metabolic panel have been reviewed, imaging studies. ASSESSMENT AND PLAN: A 70-year-old female, -Faroese, with history of A fib, CVA on chronic Eliquis, CKD stage 3, diastolic heart failure, EF 65%, pulmonary sarcoidosis, pulmonary hypertension, ANGELINA, obesity, hyperventilation syndrome with Pickwickian syndrome, CPAP noncompliant, breast cancer with mastectomy, diverticulitis, seizures, GI bleed, wheelchair bound, disabled, [facility], admitted due to confusion, dry cough, trouble concentrating, found to have decompensated congestive heart failure with hepatic congestion, elevated ammonia levels and hyperkalemia. Coronavirus is negative. CURRENT ACTIVE ISSUES: 1. Decompensated congestive heart failure with preserved systolic function, diastolic dysfunction. 2. [id number] renal failure, stage 3 secondary to decrease in circulating volume due to heart failure. 3. Poor venous access, status post left subclavian triple lumen catheter placement by thoracic surgery. Attempts by general surgery failed. 4. Epistaxis in the setting of chronic Eliquis and aspirin, status post nasal spray and Afrin. 5. History of A fib and CVA. 6. Obesity. 7. History of COPD. 8. History of metabolic encephalopathy due to elevated ammonia level from hepatic congestion from cor pulmonale and CHF. 9. Morbid obesity with obstructive sleep apnea on oxygen at night. 10. Anemia of chronic disease and acute blood loss secondary to epistaxis. PLAN: At this time, the patient is currently on strict Is and Os, daily weights, fluid restriction. She was given Lasix 60 IV yesterday with output undocumented. She remains short of breath with congestive heart failure. Nephrology has been consulted. She refuses Nails for strict Is and Os. For epistaxis, the patient is currently off anticoagulation and refusing to take aspirin and Eliquis again despite risk of recurrent CVA. The patient's blood pressure is currently stable. Therefore, we will discontinue the patient's midodrine. The patient is refusing Nails catheter for strict Is and Os as well. We will continue with daily weights and fluid restriction for now. Commercial Loan Specialist has been consulted to help in management. Lasix 60 mg has been given this morning. She is medically stable to resume a consistent carbohydrate renal diet, currently on sliding scale. Levemir insulin has been discontinued due to hypoglycemia. [facility]
[2020-09-16] MEDS ORDERED: ASPIRIN 81MG ENTERIC TABLET PO SCH (09:00)
[2020-09-16] MEDS: SUCRALFATE SUSP 1GM/10ML UD PO SCH ×4 (09:04→20:28)
[2020-09-16] MEDS: LACTULOSE 20 GM/30 ML SYRUP UD PO SCH ×2 (09:04→09:06)
[2020-09-16] MEDS: BRIMONIDINE 0.15% OPHTH SOLN 5 ML OU SCH ×3 (09:05→20:28)
[2020-09-16] MEDS: CALCITRIOL 0.25 MCG CAP (S0169) PO SCH (09:05)
[2020-09-16] MEDS: MIRALAX *UNIT DOSE* 17GM PACKET PO SCH (09:05)
[2020-09-16] MEDS: QUEtiapine FUMARATE 50MG TAB PO SCH (09:05)
[2020-09-16] MEDS: SENOKOT S TAB PO SCH (09:05)
[2020-09-16] MEDS: FERROUS SULFATE 325MG TAB PO SCH (09:05)
[2020-09-16] MEDS: ASCORBIC ACID 500 MG TAB PO SCH (09:05)
[2020-09-16] MEDS: PANTOPRAZOLE 40MG VIAL (C9113 PER 1) IV SCH ×2 (09:06→20:28)
[2020-09-16 11:26] VITALS: BP 141/64
[2020-09-16] MEDS: FUROSEMIDE 100MG/10ML VIAL (J1940) IV SCH ×2 (13:05→17:25)
[2020-09-16 15:45] VITALS: BP 130/60
[2020-09-16 20:10] VITALS: BP 142/65
[2020-09-16] MEDS: ROSUVASTATIN 10 MG TAB (CRESTOR) PO SCH (20:28)
[2020-09-17] VITALS (9 sets, daily range): BP systolic 121–177; BP diastolic 57–74
[2020-09-17] MEDS: SODIUM CHLORIDE NASAL 0.65% SPRAY BTL (OCEAN) SCH ×7 (00:09→23:22)
[2020-09-17] MEDS: FUROSEMIDE 100MG/10ML VIAL (J1940) IV SCH ×5 (00:48→23:22)
[2020-09-17 05:22] LABS: HEMATOCRIT 32.1 % (36.0-47.0); HEMOGLOBIN 8.9 g/dl (12.0-15.5); MEAN CORPUSCULAR HEMOGLOBIN 29.1 pg (27.0-33.0); MEAN CORPUSCULAR HGB CONC 27.7 g/dl (32.0-36.5); MEAN CORPUSCULAR VOLUME 104.9 fl (80.0-96.0); PLATELET COUNT, AUTOMATED 151 10^3/uL (150-450); RED BLOOD COUNT 3.06 10^6/uL (4.00-5.40); WHITE BLOOD COUNT 6.4 10^3/uL (4.0-10.0)
[2020-09-17 05:47] LABS: CALCIUM LEVEL 7.9 MG/DL (8.8-10.2); CREATININE FOR GFR 1.95 MG/DL (0.55-1.30); GLOMERULAR FILTRATION RATE 32.8 (>45); MAGNESIUM LEVEL 2.3 MG/DL (1.8-2.4); POTASSIUM SERUM 4.1 MEQ/L (3.5-5.1)
[2020-09-17] MEDS: LEVOTHYROXINE 137MCG TABLET (0.137MG) PO SCH (06:01)
[2020-09-17] MEDS: SODIUM CHLORIDE 0.9% INJ 10 ML SYR IV SCH ×3 (06:05→21:08)
--- NOTE | 2020-09-17 08:02 | CR ---
CONSULTATION DATE: 09/16/2020 REQUESTING PHYSICIAN: RODRIGUE COTTO MD REASON FOR CONSULTATION: Management of decompensated congestive heart failure. CHIEF COMPLAINT: Patient presented to the hospital on September 14 with confusion and shortness of breath. HISTORY OF PRESENT ILLNESS: Jeannette Cooney is a 70-year-old female with a past medical history of morbid obesity, history of COPD, CVA, hypertension, chronic kidney disease Stage III, chronic diastolic congestive heart failure, pulmonary sarcoidosis, pulmonary hypertension, multiple other comorbidities as mentioned below. She presented to the hospital on September 14 with progressive confusion, dry cough, lower extremity edema, and shortness of breath. She is admitted under the Hospitalist service. Nephrology Service was called for further help in the management of this patient with persistent lower extremity edema. I saw and evaluated the patient today morning at the bedside. She reports lower extremity edema and shortness of breath despite IV diuretics that she is getting. PAST MEDICAL HISTORY: Past medical history of CVA in 2008, history of left sided weakness, COPD, hypertension, chronic kidney disease Stage III, chronic diastolic congestive heart failure, LV ejection fraction 65%, coronary artery disease, pulmonary sarcoidosis, pulmonary hypertension, obstructive sleep apnea morbid obesity, Pickwickian syndrome, obstructive sleep apnea, noncompliant with CPAP, anemia of chronic kidney disease, diverticulosis, history of breast cancer status post mastectomy in 2013, Type 2 diabetes, and glaucoma. PAST SURGICAL HISTORY: Status post hysterectomy, status post left mastectomy, right sided Infusaport placement in 2017 which was removed in 2019. ALLERGIES: She is allergic to multiple medications including atorvastatin, sulfa drugs, Baclofen, Clindamycin, Duloxetine, Keppra, Lisinopril, Topiramate, Tramadol. FAMILY HISTORY: No significant family history of endstage renal disease requiring hemodialysis. SOCIAL HISTORY: The patient is a resident of [facility]. She denies any smoking or illicit drug abuse or alcohol abuse. REVIEW OF SYSTEMS: Constitutional: She denies any fevers or chills. Eyes: She denies any blurry vision or double vision. ENT: Denies any dysphagia, or odynophagia. Cardiovascular: She reports lower extremity edema. Respiratory: She reports shortness of breath. GI: Denies any nausea or vomiting. Genitourinary: Denies any dysuria or hematuria. Musculoskeletal: Reports lower extremity edema. Hematological/Oncological: Denies any easy bleeding or bruising. IPHONE DEVELOPER: She reports a history of stroke. All other review of systems are negative. PHYSICAL EXAMINATION: GENERAL: Patient is awake, alert and oriented x3, morbidly obese, laying in bed. VITAL SIGNS: Temperature is 98 degrees Fahrenheit, blood pressure is 142/65, pulse is 104, respiratory rate is 18, saturating 99% on nasal cannula at 2 liters. HEAD AND NECK: Extraocular muscles are intact. Pupils equally round and reactive to light. Mucous membranes are moist. Neck is supple, moderately elevated JVD is noted. CARDIOVASCULAR: S1 and S2 is regular, 3+ edema of the bilateral lower extremities. RESPIRATORY: Mildly decreased breath sounds at the bases, there are inspiratory crackles bilaterally at the bases. ABDOMEN: Soft, obese, positive bowel sounds. Abdominal wall edema is noted. MUSCULOSKELETAL: Significant edema of the bilateral lower extremities noted starting from toes all the way up to her thighs. IPHONE DEVELOPER: Patient is awake and alert laying in bed, follows commands and is able to move extremities. LABORATORY DATA: CBC showed a WBC of 5.7, hemoglobin 9.6, platelets of 167,000. BMP showed a sodium of 142, potassium 4.5, chloride 106, bicarbonate 32, BUN 46, creatinine is 2. Calcium is 7.5. Magnesium is 2.5. Ammonia level is 124. CURRENT INPATIENT MEDICATIONS: Patient's medications were all reviewed by myself. She is on vitamin C daily, Calcitriol 0.25 mcg p.o. daily, Senokot one tablet p.o. daily, iron tablets 324 mg p.o. daily. She was given a dose of Lasix 60 mg IV x1 dose. I have started her on 80 mg IV q. 6 hourly with net negative goal of 2.5 liters. She was given Lactulose today. She is on levothyroxine 137 mcg p.o. daily, Protonix 40 mg IV twice a day, Miralax one packet p.o. daily, Seroquel 50 mg p.o. daily, Rosuvastatin 20 mg q.h.s., Carafate 1 gram p.o. a.c. and h.s. ASSESSMENT AND PLAN: 1. Acute decompensated diastolic congestive heart failure. Patient is significantly volume overloaded. She has been started on net negative Lasix orders. Continue to monitor intake and output. 2. Acute kidney injury superimposed on chronic kidney disease Stage III. Patient is in congestive heart failure, okay to continue diuretic, hopefully improvement in the volume status should help improve her renal function as well. 3. Anemia secondary to epistaxis and chronic kidney disease. Hemoglobin level is 9.6 which is optimal for now, okay to continue current dose of iron tablet. 4. Secondary hyperparathyroidism, continue current dose of Calcitriol 0.25 mcg p.o. daily. 5. Elevated ammonia level. Patient is currently getting Lactulose. Check ammonia level in the morning.
[2020-09-17] MEDS: MIRALAX *UNIT DOSE* 17GM PACKET PO SCH (08:36)
[2020-09-17] MEDS: PANTOPRAZOLE 40MG VIAL (C9113 PER 1) IV SCH ×2 (08:36→21:07)
[2020-09-17] MEDS: SUCRALFATE SUSP 1GM/10ML UD PO SCH ×2 (08:36→12:10)
[2020-09-17] MEDS: SENOKOT S TAB PO SCH (08:36)
[2020-09-17] MEDS: ASCORBIC ACID 500 MG TAB PO SCH (08:37)
[2020-09-17] MEDS: FERROUS SULFATE 325MG TAB PO SCH (08:37)
[2020-09-17] MEDS: BRIMONIDINE 0.15% OPHTH SOLN 5 ML OU SCH ×3 (08:37→21:07)
[2020-09-17] MEDS: QUEtiapine FUMARATE 50MG TAB PO SCH (08:37)
[2020-09-17] MEDS: CALCITRIOL 0.25 MCG CAP (S0169) PO SCH (08:37)
--- NOTE | 2020-09-17 10:20 | IPN ---
PROGRESS NOTE DATE: 09/17/2020 SUBJECTIVE: Patient complains of shortness of breath and change from before. No chest pain, pressure or tightness. She has no episodes of epistaxis. Patient adamantly refuses to be placed back on her Eliquis, refused her dose yesterday, again refused her dose this morning due to her concerns of recurrent epistaxis. After a significant lengthy discussion about her risk of CVA due to afib and prior history of CVA patient is still adamant not to take her Eliquis this morning. No recurrent episodes of epistaxis, no GI bleed, no hemoptysis, melena, black tarry stools, bright red blood per rectum or coffee ground emesis. OBJECTIVE: Vital signs: Temperature 97.3, pulse 89, respiratory rate 18, blood pressure 140/63, 99% on 2 liters nasal cannula. Neck: A left subclavian triple lumen catheter in place, difficult to assess for JVD. Thick neck. HEENT: Dry mucous membranes. Lungs: Diminished. Heart: S1 and S2 tachycardic. Abdomen: Soft, nontender, nondistended, positive bowel sounds. Extremities: 2+ pitting edema. Input and output: Input is 1080, output 2300, balance of negative 1220 yesterday. Current weight is 131.7 kg, admission weight of 130.5 kg. LABORATORY DATA: White count 6.4, hemoglobin 8.9, hematocrit 32, platelet count 151. Sodium 141, potassium 4.1, chloride 104, bicarbonate 36, BUN 43, creatinine 1.95, glucose 190. ASSESSMENT: This is a 70-year-old -Vincentian female, a detention resident that presented with decompensated congestive heart failure with chronic kidney disease stage 3, hyperkalemia and elevated ammonia level. Patient has a history of pulmonary sarcoidosis, CKD stage 3, diastolic heart failure, CVA on chronic Eliquis, prior episode of epistaxis, resistant to taking her Eliquis now, ANGELINA, obesity, hypoventilation, Pickwickian syndrome, mastectomy due to breast cancer, diverticulitis, seizures, GI bleed, wheelchair bound , disabled. IMPRESSIONS/PLAN: 1. Acute metabolic encephalopathy secondary to elevated ammonia levels due to hepatic congestion for CHF: Currently improving with lactulose. 2. Decompensated hepatic flexure with preserved systolic function: Nephrology has been consulted for help in management due to worsening renal failure. Strict I's&O's, daily weights and fluid restriction. 3. Poor venous access: Status post left subclavian triple lumen catheter by thoracic surgery. Attempts by general surgery had failed previously. 4. Epistaxis in the setting of chronic Eliquis, aspirin: Status post nasal spray Afrin currently with humidified oxygen. Patient refuses to continue to take her Eliquis and aspirin for CVA due to this. 5. History of atrial fibrillation, CVA: Refuses to take Eliquis and aspirin due to recurrent epistaxis. 6. Obesity, COPD: Currently stable. 7. Morbid obesity with ANGELINA: On chronic oxygen stable, complicating her care. 8. Anemia of chronic disease, acute blood loss secondary to epistaxis: Not requiring RBC transfusion. 9. Diabetes: Her Levemir insulin has been discontinued due to episodes of low glucose. 10. Disposition: Awaiting euvolemia, currently managed by nephrology. STEPHANIE
[2020-09-17 15:45] LABS: ABG BASE EXCESS 5.3 (-2.0-2.0); ABG HCO3 33.6 MEQ/L (22.0-26.0); ABG O2 SATURATION 96.8 % (95.0-99.0); ABG PARTIAL PRESSURE O2 88.8 mmHg (75.0-100.0); ABG STANDARD HCO3 29.2 MEQ/L (22.0-26.0); ABG TOTAL CO2 35.8 MEQ/L (23.0-31.0); ABG pH (ARTERIAL) 7.286 UNITS (7.350-7.450)
--- NOTE | 2020-09-17 15:48 | REP ---
INDICATION: SOB AMS. COMPARISON: None. FINDINGS: The technique utilized in obtaining the radiograph has magnified the cardiac silhouette and accentuated the interstitial markings. Once again, there is a diffuse increase in the interstitial markings throughout the lung holliday with evidence of patchy airspace opacities as well. All of this appears stable. There is cardiomegaly accentuated by technique. There is no change in the osseous structures. The tip of the left-sided subclavian central venous catheter is unchanged. IMPRESSION: No change from the prior exam. Persistent airspace and interstitial edema.. <Electronically signed by Frantz Montenegro > 09/17/20 [id number]
[2020-09-17 15:49] LABS: ABG PARTIAL PRESSURE CO2 72.1 mmHg (35.0-45.0)
--- NOTE | 2020-09-17 16:04 | IPNPDOC ---
Date Seen The patient was seen on 09/17/20. Progress Note addendum to progress note: acute metabolic encephalopathy acute respiratory acidosis 7.2 acute hypercapnic/hypercarbic respiratory failure acute on chronic diastolic chf h/o cva refusing eliquis recent epistaxis , resolved ckd3 plan: -transfer to icu for bipap mgt -pulm/needle process felt goods supervisor consult for bipap mgt -nephrology for chf/fluid mgt in light of ckd3 -npo due to risk of aspiration -hypoglycemic protocol -lovenox 1mg/kg sq q12hrs renally dosed for h/o cva/afib -no recurrent epistaxis -monitor hgb/hct -transfuse prn for hgb<8 or symptomatic anemia VS, I&O, 24H, Fishbone Vital Signs/I&O Vital Signs Date Time Temp Pulse Resp B/P (MAP) Pulse Ox O2 Delivery O2 Flow Rate FiO2 09/17/20 12:00 97.3 80 19 121/57 (78) 94 Nasal Cannula 2.0 I&O- Last 24 Hours up to 6 AM 09/17/20 06:00 Intake Total 1080 ml Output Total 1950 ml Balance -870 ml Laboratory Data 24H LABS Laboratory Tests 2 09/16/20 18:11: Bedside Glucose (Misc Panel) 176H 09/17/20 00:22: Bedside Glucose (Misc Panel) 189H 09/17/20 05:12: Nucleated Red Blood Cells % (auto) 0.0, Anion Gap 1L, Glomerular Filtration Rate 32.8L, Calcium Level 7.9L, Magnesium Level 2.3 09/17/20 06:49: Bedside Glucose (Misc Panel) 219H 09/17/20 11:45: Bedside Glucose (Misc Panel) 164H 09/17/20 15:36: Blood Gas Bicarbonate Standard 29.2H, Arterial Blood pH 7.286L, Arterial Blood Partial Pressure CO2 72.1*H, Arterial Blood Partial Pressure O2 88.8, Arterial Blood Total CO2 35.8H, Arterial Blood HCO3 33.6H, Arterial Blood Base Excess 5.3H, Arterial Blood Oxygen Saturation 96.8 CBC/BMP Laboratory Tests 09/17/20 05:12 Microbiology Microbiology 09/15/20 Stool Occult Blood (EREN) - Final, Complete 09/14/20 Respiratory Virus Panel (PCR) (EREN) - Final, Complete 09/14/20 Blood Culture - Preliminary, Resulted No Growth after 72 hours. All specime... 09/14/20 Blood Culture - Preliminary, Resulted No Growth after 72 hours. All specime... RODRIGUE COTTO MD Sep 17, 2020 16:04
[2020-09-17] MEDS: cefTRIAXone SOD 1 GM in D5W MINI-BAG PLUS 50 ML IV SCH (17:55)
[2020-09-17] MEDS: ENOXAPARIN 150MG/ML SYRINGE (J1650 PER 10MG) SC SCH (17:56)
[2020-09-17] MEDS ORDERED: LACTOBACILLUS ACIDOPHILUS CAP (BACID) PO SCH (18:00)
--- NOTE | 2020-09-17 20:16 | CR ---
PULMONARY CONSULTATION DATE: 09/17/2020 CHIEF COMPLAINT: Shortness of breath and encephalopathy. HISTORY OF PRESENT ILLNESS: Miss Cooney is a 70-year-old female with multiple comorbidities including morbid obesity, obstructive sleep apnea/OHS, chronic obstructive pulmonary disease, chronic hypoxemic respiratory failure, congestive heart failure, chronic kidney disease, sarcoidosis, who presented from the snf with complaints of confusion, increasing dyspnea and a nonproductive cough. The patient reports as well increasing lower extremity edema for several days prior to her presentation. At baseline the patient is wheelchair bound and disabled, living in a snf. She was initially admitted on the in decompensated heart failure with severe lower extremity edema as well as evidence of pulmonary edema on imaging. She was given diuretics. The patient was noted earlier today to have some increased confusion as well as lethargy. She had an ABG performed which showed evidence of khfgv-cl-hoonopx hypercarbic respiratory failure. The patient was therefore transferred to the ICU. The patient has a history of ANGELINA/OHS and has been noncompliant with CPAP. She reports that she does have a CPAP however, which she uses in the snf. She had previously been seen by Pulmonary, although this was several years ago since she was seen for her sleep apnea. She does continue to report shortness of breath still and significant lower extremity edema with minimal improvement. She denies any significant chest pain, has not had any fevers or chills. No abdominal pain, no nausea or vomiting. She does continue to have a nonproductive cough still. The patient does report a history of dietary noncompliance with a low salt diet. She states that she does like to eat [place] food. PAST MEDICAL HISTORY: The patient's past medical history is significant for: 1. 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 2. Chronic obstructive pulmonary disease. 3. ANGELINA/OHS with chronic hypoxemic respiratory failure, on 2 liters nasal cannula oxygen and on CPAP. 4. Hypertension. 5. Chronic kidney disease. 6. Diastolic congestive heart failure with history of pulmonary hypertension. 7. Reported history of pulmonary sarcoidosis. 8. Coronary artery disease. 9. Morbid obesity. 10. Anemia. 11. History of GI bleed and diverticular disease. 12. Left breast cancer, status post mastectomy in 2013. 13. Diabetes. SURGICAL HISTORY: The patient's past surgical history is significant for: 1. Hysterectomy. 2. History of right sided infusaport removed in 2019. SOCIAL HISTORY: The patient is a snf resident at [facility]. She is wheelchair bound at baseline. She denies any alcohol use or prior history of smoking. FAMILY HISTORY: The patient is unclear. HOME MEDICATIONS: 1. Eliquis. 2. Vitamin C. 3. Aspirin. 4. Bisacodyl suppository p.r.n. 5. Brimonidine. 6. Calcitriol. 7. Prolia injections. 8. Colace. 9. Ferrous Sulfate. 10. Hydrocodone. 11. Guaifenesin p.r.n. 12. Lantus. 13. Synthroid. 14. Metoprolol. 15. Protonix. 16. Miralax. 17. Seroquel. 18. Rosuvastatin. 19. Senokot. 20. Carafate. 21. Torsemide. ALLERGIES: 1. Sulfa. 2. Atorvastatin. 3. Baclofen. 4. Clindamycin. 5. Duloxetine. 6. Keppra. 7. Lisinopril. 8. Topiramate. 9. Tramadol. PHYSICAL EXAMINATION: VITAL SIGNS: Temperature 97.3, pulse 60, respirations 19, blood pressure 121/57, O2 sat 94% on 2 liters nasal cannula. INTAKE AND OUTPUT: In 1.0 liters, out 2.3 liters, net negative 1.2 liters. GENERAL APPEARANCE: The patient is a morbidly obese female. She is somewhat drowsy but is awake and alert and answering questions appropriately. She appears to be in mild respiratory distress but is able to speak in complete sentences. She is using minimal accessory muscles for respirations. HEENT: Pupils are reactive to light. Mallampati 3. Moist mucous membranes. NECK: Supple. Unable to clear assess for JVD. No palpable cervical adenopathy. CARDIAC: Regularly irregular, normal S1, S2. Unable to clearly auscultate any murmurs. LUNGS: Decreased breath sounds with crackles noted bilaterally. No wheezes or rhonchi. ABDOMEN: Morbidly obese, soft, nontender, nondistended. There is severe pitting anasarca. EXTREMITIES: There is +2-3 pitting edema bilaterally with some chronic venous stasis skin changes. The patient has chronic left sided weakness. LABORATORY STUDIES: WBC count 6.4, hemoglobin 8.9, platelet count 159. Chemistries - sodium is 141, potassium 4.1, chloride is 104, bicarbonate is 36, BUN 43, creatinine 1.95, glucose is 190, calcium is 7.9, ammonia 75. BNP initially was 29,881. Procalcitonin initially was 0.75, repeat is pending. ABG this morning - pH 7.286, pco2 of 17.1, pO2 of 88.8. IMAGING: Chest x-ray this morning shows a left subclavian central line in place. There is cardiomegaly. There is diffuse foci opacities and interstitial changes bilaterally. There is some blunting of the costophrenic angles bilaterally suggestive of a small pleural effusion. ASSESSMENT AND PLAN: Miss Cooney is a 70-year-old female with a past medical history of congestive heart failure with pulmonary hypertension, history of sarcoidosis, history of ANGELINA/OHS with chronic hypoxemic respiratory failure and noncompliance with CPAP, chronic kidney disease, paroxysmal atrial fibrillation, who presented with complaints of worsening shortness of breath, cough and increasing lower extremity edema. The patient was found to have evidence of decompensated heart failure on admission as well lebrp-zs-vqpkeqh renal failure, likely cardiorenal syndrome. She was also encephalopathic and there was concern for hyperammonia contributing to her encephalopathy, and she was started on Lactulose with some improvement. This morning however, the patient was noted to be more lethargic and repeat ABG showed evidence of [id number] hypercarbic respiratory failure, likely in the setting of her decompensated congestive heart failure. 1. Lvuim-ma-xqosfea hypercarbic respiratory failure secondary to worsening congestive heart failure and fluid overload. The patient has a history of ANGELINA/OHS contributing to her chronic hypercarbia as well as her chronic hypoxemia. - The patient had previously been on CPAP with a reported history of noncompliance. We will place her on BIPAP for now with settings of 18/9, respiratory rate of 14 and titrate FiO2 to maintain an 02 sat of 88-92%. - We will repeat ABG in one hour and titrate settings accordingly. - Continue with diuretics as per Nephrology appreciate their consult and recommendations. - The patient has a questionable history of chronic obstructive pulmonary disease, although she does not appear to have any clinical history of smoking history. She does not have any wheezing currently on exam. Can consider nebulized bronchodilators as needed. - The patient is on Ceftriaxone given patchy opacities on imaging, although suspect this is most likely fluid and not an infectious process. Her initial procalcitonin was 0.57. Repeat procalcitonin is pending. Depending on results, would deescalate antibiotics accordingly. She has been afebrile and does not have any leukocytosis. DVT Prophylaxis on full dose anticoagulation. Code Status full code. MTDD
[2020-09-17 21:26] LABS: ABG BASE EXCESS 6.6 (-2.0-2.0); ABG HCO3 33.9 MEQ/L (22.0-26.0); ABG O2 SATURATION 98.4 % (95.0-99.0); ABG PARTIAL PRESSURE CO2 64.6 mmHg (35.0-45.0); ABG PARTIAL PRESSURE O2 115.8 mmHg (75.0-100.0); ABG STANDARD HCO3 30.5 MEQ/L (22.0-26.0); ABG TOTAL CO2 35.9 MEQ/L (23.0-31.0); ABG pH (ARTERIAL) 7.338 UNITS (7.350-7.450)
[2020-09-17] MEDS: CHLOROTHIAZIDE 500 MG VIAL (J1205 PER 1) IV SCH (22:02)
[2020-09-18] VITALS: BP 140/65
[2020-09-18 04:00] VITALS: BP 164/86
[2020-09-18] MEDS: SODIUM CHLORIDE NASAL 0.65% SPRAY BTL (OCEAN) SCH ×6 (04:00→23:53)
[2020-09-18 05:15] LABS: HEMATOCRIT 34.1 % (36.0-47.0); HEMOGLOBIN 9.7 g/dl (12.0-15.5); MEAN CORPUSCULAR HEMOGLOBIN 28.8 pg (27.0-33.0); MEAN CORPUSCULAR HGB CONC 28.4 g/dl (32.0-36.5); MEAN CORPUSCULAR VOLUME 101.2 fl (80.0-96.0); PLATELET COUNT, AUTOMATED 170 10^3/uL (150-450); RED BLOOD COUNT 3.37 10^6/uL (4.00-5.40); WHITE BLOOD COUNT 4.9 10^3/uL (4.0-10.0)
[2020-09-18 05:39] LABS: CALCIUM LEVEL 8.2 MG/DL (8.8-10.2); CREATININE FOR GFR 1.76 MG/DL (0.55-1.30); GLOMERULAR FILTRATION RATE 36.9 (>45); MAGNESIUM LEVEL 2.1 MG/DL (1.8-2.4); POTASSIUM SERUM 3.4 MEQ/L (3.5-5.1)
[2020-09-18] MEDS: ENOXAPARIN 150MG/ML SYRINGE (J1650 PER 10MG) SC SCH ×2 (05:40→18:18)
[2020-09-18] MEDS: FUROSEMIDE 100MG/10ML VIAL (J1940) IV SCH ×4 (05:41→23:52)
[2020-09-18] MEDS: SODIUM CHLORIDE 0.9% INJ 10 ML SYR IV SCH ×3 (06:35→23:53)
[2020-09-18] MEDS ORDERED: POTASSIUM CHLORIDE 10 MEQ SR TABLET PO ONE ×2 (07:30→11:00)
[2020-09-18 08:00] VITALS: BP 147/66
--- NOTE | 2020-09-18 09:19 | IPN ---
PROGRESS NOTE DATE: 09/17/2020 SUBJECTIVE: Jeannette is seen and examined this morning at the bedside. She remains in gross fluid overload. Her urine output on Lasix 80 mg every 6 hours has not been as satisfactorily as I would want. Patient continues with urine quantification to vacuum canister and she reports ongoing shortness of breath and generalized swelling. PHYSICAL EXAMINATION: VITAL SIGNS: Temperature 98.7, pulse 79, respiratory rate 18, blood pressure 135/65, saturating 99% on 2 liter nasal cannula. INTAKE/OUTPUT: Intake yesterday was 1 liter. Urine output yesterday was 2.3 liters. Weight in the bed scale today was not recorded. GENERAL: Patient is seen lying in bed with the head of the bed elevated, morbidly obese female in no apparent distress. She was awake, alert and oriented. HEENT: Extraocular muscles are intact. Nasal cannula is in place. Jugular veins are difficult to assess, but do look elevated. HEART: S1, S2 with 3+ leg edema that comes all the way up and includes the lower extremities and abdominal wall, abdominal flanks and dependent areas. RESPIRATORY: Lungs show diminished breath sounds bilaterally with crackles, but there is no tachypnea. GENITOURINARY: Shows external vacuum catheter to canister, draining clear yellow urine. ABDOMEN: Soft. There is significant indurated pitting edema especially in the dependent areas, but even anteriorly and laterally. LABORATORY STUDIES: White count 6.4, hemoglobin 8.9, platelets 151,000. Sodium 141, potassium 4.1, bicarbonate 36, BUN 43, creatinine 1.9. Magnesium 2.3. IMAGING: Chest x-ray done September 16 shows pleural effusions and interstitial prominence. INPATIENT MEDICATIONS: She continues on Lasix 80 mg I.V. every 6 hours. I am also adding Diuril 500 mg I.V. b.i.d. The remainder of her medications are unchanged as compared to yesterday. PROBLEMS: 1. Acute on chronic decompensated diastolic congestive heart failure along with right heart failure: Echocardiogram from June 2020 is reviewed with grade 2 diastolic dysfunction and dilated hypokinetic right ventricle with severe pulmonary hypertension. Patient is in gross fluid overload. She has not diuresed successfully with Lasix alone. I am continuing her on Lasix 80 mg every 6 hours and I have also added Diuril 500 mg I.V. b.i.d. for further diuresis. I have seen her on previous hospitalizations and she has required a high amount of combination diuretics in order to appropriately diurese and correct her volume status. 2. Metabolic alkalosis: It is secondary to diuretics and it is also in compensation for underlying chronic respiratory acidosis. 3. Anemia in chronic renal failure: Her iron stores were checked recently in July and were satisfactory at that time. I think there is also a component of hemodilution given her severe fluid overload. We will see how her hemoglobin trends as she is being diuresed. 4. CKD stage 3: On review of old labs, patient has significant fluctuation of her renal function and it is due to her chronic cardiorenal syndrome and her tendency towards fluid overload and CHF exacerbations. We will keep an eye on renal function while she is being diuresed. I expect her renal function will improve with successful diuresis.
[2020-09-18 10:00] VITALS: BP 151/67
[2020-09-18] MEDS: ASCORBIC ACID 500 MG TAB PO SCH (10:11)
[2020-09-18] MEDS: PANTOPRAZOLE 40MG TAB (PROTONIX) PO SCH ×2 (10:11→20:59)
[2020-09-18] MEDS: SPIRONOLACTONE 25 MG TAB PO SCH (10:12)
[2020-09-18] MEDS: BRIMONIDINE 0.15% OPHTH SOLN 5 ML OU SCH ×3 (10:12→20:59)
[2020-09-18] MEDS: CHLOROTHIAZIDE 500 MG VIAL (J1205 PER 1) IV SCH ×2 (10:15→11:11)
--- NOTE | 2020-09-18 11:50 | IPN ---
PULMONARY PROGRESS NOTE DATE: 09/18/2020 SUBJECTIVE: The patient was seen and examined this morning during bedside rounds. Overnight patient was continued on BiPAP with brief breaks off of BiPAP. She did have improvement on ABG and this morning she does notice improvement in her shortness of breath and dyspnea. She does continue to have significant edema; however, still. She had a female external urinary catheter in place yesterday; however, was having issues with leakage and was voiding large amounts of urine in the bed and her ins and outs were not entirely accurate this morning. She therefore had an indwelling Nails catheter placed and has continued to have good urine output with her diuretics. Patient denies any chest pain currently. She denies any significant coughing or wheezing. She denies any abdominal pain. No nausea or vomiting. She has not had any fevers overnight. PHYSICAL EXAMINATION: Vitals: Temperature 97.3, pulse 76, respiratory rate 16, blood pressure 164/86, O2 sat 100% on 30% FiO2 on BiPAP. Ins 295, outs 1.7, net negative 1.4 liters. General: Patient is a morbidly obese female. She is more awake and alert this morning and answering questions appropriately. She is not in any respiratory distress and is not using any accessory muscles for respirations. HEENT: Normocephalic, atraumatic. Moist mucous membranes noted. Mallampati IV. Neck: Supple, unable to clearly assess JVD. No palpable cervical adenopathy. Cardiac: Irregularly irregular, normal S1 and S2, unable to clearly auscultate any murmurs. Lungs: Diminished breath sounds bilaterally with faint crackles noted more at the bases. No wheezes or rhonchi. Abdomen: Morbidly obese, soft, nontender, nondistended. There is pitting anasarca. Extremities: Patient continues to have 2-3+ pitting edema bilaterally with chronic venous stasis skin changes. She has chronic left sided weakness. LABS: WBC 4.9, hemoglobin 9.7, platelet count 170. Chemistries: Sodium 142, potassium 3.4, chloride 101, bicarb 37, BUN 41, creatinine 1.76, glucose 107. ABG: pH 7.338, PCO2 64.6, PO2 115.8. ASSESSMENT AND PLAN: Ms. Cooney is a 70 -year-old female with a past medical history of CHF with pulmonary hypertension, history of sarcoidosis, ANGELINA/OHS with chronic hypoxemic and hypercarbic respiratory failure, CKD, paroxysmal atrial fibrillation who presented with complaints of worsening shortness of breath, cough and increased lower extremity edema. Patient was in decompensated heart failure on admission as well as acute on chronic renal failure likely secondary to cardiorenal syndrome. Patient was also noted to have acute on chronic hypercarbic respiratory failure in the setting of her decompensated heart failure and was transferred to the ICU for BiPAP. 1. Acute on chronic hypercarbic respiratory failure secondary to decompensated heart failure and fluid overload: Patient has chronic hypercarbia likely secondary to ANGELINA/OHS as well as likely a degree of chronic mild hypoxemia secondary to her OHS. Patient does report being on CPAP at [facility] although there is questionable compliance. She is currently on BiPAP with settings of 18/9 and an FiO2 of 30%. - We will change her to a table top bilevel with the same pressure settings of 18/9 and with an O2 bleed to titrate an O2 sat of 88-92% given her chronic hypercarbia. - Patient did have net negative urine output with diuretics; however, nephrology will be increasing her diuretic as she does still appear to be very grossly fluid overloaded and anasarcic. She has had improvement in her renal function with diuresis consistent with cardiorenal syndrome. I appreciate nephrology recommendations and we will continue diuretics as per nephrology. - She now has the Nails catheter for measuring ins and outs accurately. - Patient is on ceftriaxone for antibiotic likely given the patchy opacities noted on her imaging. Her initial procalcitonin was only 0.57. I suspect the findings on chest x-ray are most likely due to pulmonary edema and fluid overload and not from an infectious process. She remains afebrile and has not had any leukocytosis. Her repeat procalcitonin is still pending. Depending on those results would likely de- escalate antibiotics accordingly. 2. DVT prophylaxis: On full dose anticoagulation. CODE STATUS: Full Code. MTDD
[2020-09-18 12:00] VITALS: BP 123/54
[2020-09-18 16:34] LABS: CALCIUM LEVEL 8.8 MG/DL (8.8-10.2); CREATININE FOR GFR 1.7 MG/DL (0.55-1.30); GLOMERULAR FILTRATION RATE 38.4 (>45); POTASSIUM SERUM 3.6 MEQ/L (3.5-5.1)
[2020-09-18] MEDS: cefTRIAXone SOD 1 GM in D5W MINI-BAG PLUS 50 ML IV SCH (16:41)
[2020-09-18 20:00] VITALS: BP 142/64
--- NOTE | 2020-09-18 21:38 | IPNPDOC ---
Subjective Date Seen The patient was seen on 09/18/20. Subjective Chief Complaint/HPI Mrs. Cooney is a 70 year old female from [facility] with morbid obesity, ANGELINA, OHS, and COPD who is here for acute HFpEF and CLRAIBEL on CKD. Patient was seen in the morning in the ICU. Patient is more awake and conversive. Discussed case with critical care. Patient can be transferred to PCU on table top. Objective Physical Examination General Exam: Positive: Alert, Cooperative Neck Exam: Positive: Supple Chest Exam: Positive: Diminished Heart Exam: Positive: Rate Normal, Irregular Rhythm Abdomen Exam: Positive: Normal bowel sounds, Soft; Negative: Tenderness Extremity Exam: Positive: Edema (bilateral pitting edema) Assessment /Plan Assessment Mrs. Cooney is a 70 year old female from [facility] with morbid obesity, ANGELINA, OHS, and COPD who is here for acute HFpEF and CLARIBEL on CKD. Nephrology following, recommendation appreciated. Continue with IV diuresis. Pulmonary/Critical care following for hypercarbic respiratory failure. Continue with table top BIPAP. Plan/VTE VTE Prophylaxis Ordered?: Yes Plan 1. Acute metabolic encephalopathy -Secondary to hepatic encephalopathy and hypercarbic encephalopathy -Treating underlying cause 2. Hepatic encephalopathy -Elevated ammonia levels secondary to hepatic congestion from CHF -Continue diuresis for CHF -Will recheck ammonia level tomorrow 3. Hypercarbic encephalopathy -Secondary to ANGELINA/OHS -Pulmonary/critical care following, recommendations appreciated -Table top BIPAP 4. Acute diastolic congestive heart failure -Nephrology following, recommendations appreciated -Continue diuresis with Lasix and chlorothiazide 5. CLARIBEL on CKD stage 3 -Nephrology following, recommendations appreciated -Continue diuresis 6. Possible pneumonia -Pulm/crit care started patient on Ceftriaxone -Day 05/13 6. Atrial fibrillation -Patient on full dose Lovenox 7. Diabetes mellitus -Insulin on hold -Monitor blood glucose 8. DVT ppx -Full dose Lovenox Disposition: Pending clinical improvement VS, I&O, 24H, Fishbone Vital Signs/I&O Vital Signs Date Time Temp Pulse Resp B/P (MAP) Pulse Ox O2 Delivery O2 Flow Rate FiO2 09/18/20 18:00 Nasal Cannula 2.0 09/18/20 16:00 30 09/18/20 12:00 97.0 82 16 123/54 (77) 100 I&O- Last 24 Hours up to 6 AM 09/18/20 06:00 Intake Total 175 ml Output Total 3150 ml Balance -2975 ml Laboratory Data 24H LABS Laboratory Tests 2 09/17/20 21:20: Blood Gas Bicarbonate Standard 30.5H, Arterial Blood pH 7.338L, Arterial Blood Partial Pressure CO2 64.6*H, Arterial Blood Partial Pressure O2 115.8H, Arterial Blood Total CO2 35.9H, Arterial Blood HCO3 33.9H, Arterial Blood Base Excess 6.6H, Arterial Blood Oxygen Saturation 98.4 09/17/20 23:50: Bedside Glucose (Misc Panel) 102 09/18/20 05:04: Nucleated Red Blood Cells % (auto) 0.0, Anion Gap 4L, Glomerular Filtration Rate 36.9L, Calcium Level 8.2L, Magnesium Level 2.1 09/18/20 05:20: Urine Color STRAW, Urine Appearance CLEAR, Urine pH 7.0, Urine Specific [place] 1.004, Urine Protein NEGATIVE, Urine Glucose (UA) NEGATIVE, Urine Ketones NEG ATIVE, Urine Blood 2+H, Urine Nitrite NEGATIVE, Urine Bilirubin NEGATIVE, Urine Urobilinogen 0.2, Urine Leukocyte Esterase 1+H, Urine WBC (Auto) 7H, Urine RBC (Auto) 7H, Urine Hyaline Casts (Auto) 0, Urine Bacteria (Auto) NEGATIVE, Urine Squamous Epithelial Cells 0, Urine Mucus (Auto) SMALL, Urine Sperm (Auto) 09/18/20 12:47: Bedside Glucose (Misc Panel) 122H 09/18/20 15:29: Anion Gap 3L, Glomerular Filtration Rate 38.4L, Calcium Level 8.8 09/18/20 17:32: Bedside Glucose (Misc Panel) 138H CBC/BMP Laboratory Tests 09/18/20 05:04 09/18/20 15:29 Microbiology Microbiology 09/18/20 Urine Culture, Received Pending 09/15/20 Stool Occult Blood (EREN) - Final, Complete 09/14/20 Respiratory Virus Panel (PCR) (EREN) - Final, Complete 09/14/20 Blood Culture - Preliminary, Resulted No Growth after 72 hours. All specime... 09/14/20 Blood Culture - Preliminary, Resulted No Growth after 72 hours. All specime... RACHAEL REDDING DO Sep 18, 2020 21:14
[2020-09-19] VITALS: BP 141/61
[2020-09-19 04:00] VITALS: BP 146/66
[2020-09-19 04:51] LABS: MEAN CORPUSCULAR HEMOGLOBIN 29.1 pg (27.0-33.0); MEAN CORPUSCULAR VOLUME 100.3 fl (80.0-96.0); PLATELET COUNT, AUTOMATED 165 10^3/uL (150-450); RED BLOOD COUNT 3.09 10^6/uL (4.00-5.40); WHITE BLOOD COUNT 5.9 10^3/uL (4.0-10.0)
[2020-09-19 05:17] LABS: BLOOD UREA NITROGEN 44 MG/DL (7-18); CALCIUM LEVEL 8.6 MG/DL (8.8-10.2); CARBON DIOXIDE LEVEL 41 MEQ/L (21-32); CHLORIDE LEVEL 100 MEQ/L (98-107); CREATININE FOR GFR 1.79 MG/DL (0.55-1.30); GLOMERULAR FILTRATION RATE 36.2 (>45); GLUCOSE, FASTING 157 MG/DL (70-100); POTASSIUM SERUM 3.9 MEQ/L (3.5-5.1); SODIUM LEVEL 140 MEQ/L (136-145)
[2020-09-19] MEDS: SODIUM CHLORIDE NASAL 0.65% SPRAY BTL (OCEAN) SCH ×5 (05:20→20:56)
[2020-09-19] MEDS: FUROSEMIDE 100MG/10ML VIAL (J1940) IV SCH ×3 (05:21→17:40)
[2020-09-19] MEDS: ENOXAPARIN 150MG/ML SYRINGE (J1650 PER 10MG) SC SCH ×2 (05:21→17:40)
[2020-09-19] MEDS: SODIUM CHLORIDE 0.9% INJ 10 ML SYR IV SCH ×2 (05:21→14:00)
[2020-09-19 06:16] LABS: ABG BASE EXCESS 12.1 (-2.0-2.0); ABG HCO3 38.3 MEQ/L (22.0-26.0); ABG O2 SATURATION 90.3 % (95.0-99.0); ABG PARTIAL PRESSURE CO2 59.1 mmHg (35.0-45.0); ABG PARTIAL PRESSURE O2 55.6 mmHg (75.0-100.0); ABG STANDARD HCO3 35.7 MEQ/L (22.0-26.0); ABG TOTAL CO2 40.1 MEQ/L (23.0-31.0); ABG pH (ARTERIAL) 7.429 UNITS (7.350-7.450)
[2020-09-19 08:00] VITALS: BP 131/61
[2020-09-19] MEDS ORDERED: CHLOROTHIAZIDE 500 MG VIAL (J1205 PER 1) IV ONE (08:00)
[2020-09-19] MEDS: PANTOPRAZOLE 40MG TAB (PROTONIX) PO SCH ×2 (08:20→20:56)
[2020-09-19] MEDS: BRIMONIDINE 0.15% OPHTH SOLN 5 ML OU SCH ×3 (08:20→20:56)
[2020-09-19] MEDS: SPIRONOLACTONE 25 MG TAB PO SCH (08:20)
[2020-09-19] MEDS: ASCORBIC ACID 500 MG TAB PO SCH (08:20)
--- NOTE | 2020-09-19 08:37 | IPN ---
PROGRESS NOTE DATE: 09/18/2020 SUBJECTIVE: Jeannette is seen and examined this morning in the Intensive Care Unit. She was transferred there yesterday night because she went into hypercapnic respiratory failure and required BiPAP. She has diuresed very well now on combination Diuril and I.V. Lasix, and I am going to hold further diuretics today as she has already made 5 liters of urine. Patient denies shortness of breath at rest, but does report dyspnea with even simple exertion and moving around in bed. PHYSICAL EXAMINATION: VITAL SIGNS: Temperature 97, pulse 82, respiratory rate 16, blood pressure 123/54, saturating 100% on 2 liter nasal cannula. INTAKE/OUTPUT: Intake yesterday was not fully recorded. Urine output yesterday was 1.8 liters. Urine output thus far today is already more than 5 liters. Weight in the bed scale is 130 kg. GENERAL: Patient is seen lying in bed, elderly female, head of the bed elevated, morbidly obese in no apparent distress. She is on nasal cannula at the time of my visit. HEENT: Extraocular muscles are intact. Tongue is moist. Nasal cannula is in place. Neck veins are difficult to assess. She has a central line present in the left IJ. HEART: Sounds are irregularly irregular. There is 3+ edema that comes all the way up to the abdominal wall, flanks and dependent areas. LUNGS: Show diminished breath sounds bilaterally with bibasilar crackles. ABDOMEN: Morbidly obese, soft and has diffuse edema throughout the abdominal wall and in the flanks and dependent areas consistent with anasarca. EXTREMITIES: 2 to 3+ leg edema bilaterally; confluent with the abdominal wall edema. She has chronic venous stasis skin changes. GENITOURINARY: Shows indwelling Nails catheter. NEUROLOGIC: She is oriented to person, place, situation. Answers simple questions appropriately and is cooperative with physical exam. LABORATORY STUDIES: Today's labs show white count 4.9, hemoglobin 9.7, platelets 170,000. Sodium 140, potassium 3.4, bicarbonate 37, BUN 41, creatinine 1.7. Magnesium 2.1. IMAGING: Chest x-ray done yesterday shows interstitial edema. INPATIENT MEDICATIONS: She is getting Lasix 80 mg every 6 hours; her last dose was at 6:00 a.m. today and further doses are held. She got two doses of Diuril. She got Spironolactone 25 mg p.o. x1 dose. She got potassium chloride 40 mEq p.o. this morning. The remainder of her medications are unchanged as compared to yesterday. PROBLEMS: 1. Acute on chronic decompensated diastolic congestive heart failure along with right heart failure: Echocardiogram June 2020 (grade 2 diastolic dysfunction and dilated hypokinetic right ventricle with severe pulmonary hypertension). She diuresed very well with combination I.V. Lasix and Diuril. She has already made more than 5 liters of urine today. I am going to hold further diuretics for today and we will resume I.V. diuretics again tomorrow. 2. Acute on chronic hypercapnic respiratory failure: It was secondary to decompensated congestive heart failure and we will continue with the aggressive diuretic regimen and she was transferred to the ICU yesterday for BiPAP support, but her oxygen requirements have come down now that she is diuresing better. 3. CKD stage 3 with cardiorenal syndrome causing acute kidney injury: Her renal function is improving with diuresis. Continue the aggressive diuresis regimen. 4. Hypokalemia due to concomitant use of loop and Thiazide diuretics: She received potassium supplementation and I also gave her a dose of Spironolactone. 5. Metabolic alkalosis: Secondary to underlying chronic respiratory acidosis and also secondary to diuretic dependence. 6. Anemia and chronic renal failure: Iron stores were checked in July and were satisfactory. There is also a component of hemodilution given severe fluid overload. Her hemoglobin seems to be up trending with diuresis and with correction of hemodilution.
--- NOTE | 2020-09-19 08:43 | REP ---
INDICATION: SOB. COMPARISON: 09/17/2020 as well as other prior exams. TECHNIQUE: Single portable AP view of the chest was performed. FINDINGS: Cardiomegaly vascular congestion are again noted. The diffuse bilateral infiltrates have improved with mild residual. The mediastinal silhouette is unchanged. Left central venous catheter is seen with the tip in the superior vena cava. IMPRESSION: Mild diffuse interstitial and alveolar infiltrates, improved since prior study. Otherwise no change. <Electronically signed by Bello Alas > 09/19/20 [id number]
[2020-09-19] MEDS: DOXYCYCLINE HYCLATE 100MG TABLET PO SCH ×2 (10:47→20:56)
--- NOTE | 2020-09-19 11:07 | IPN ---
PROGRESS NOTE DATE: 09/18/2020 <#######################> no dictation /verified/ml
[2020-09-19 12:00] VITALS: BP 133/58
[2020-09-19] MEDS ORDERED: LIDOCAINE 1% MDV 20ML VIAL As Ordered ONE (15:37)
--- NOTE | 2020-09-19 16:59 | IPNPDOC ---
Subjective Date Seen The patient was seen on 09/19/20. Subjective Chief Complaint/HPI Mrs. Cooney is a 70 year old female from [facility] with morbid obesity, ANGELINA, OHS, and COPD who is here for acute HFpEF and CLARIBEL on CKD. Yesterday, patient diuresed 5.7L. Patient reports some chest tightness today. CXR demonstrates vascular congestion and improvement in bilateral infiltrates. Objective Physical Examination General Exam: Positive: Alert, Cooperative Neck Exam: Positive: Supple Chest Exam: Positive: Diminished Heart Exam: Positive: Rate Normal, Irregular Rhythm Abdomen Exam: Positive: Normal bowel sounds, Soft; Negative: Tenderness Extremity Exam: Positive: Edema (bilateral pitting edema) Assessment /Plan Assessment Mrs. Cooney is a 70 year old female from [facility] with morbid obesity, ANGELINA, OHS, and COPD who is here for acute HFpEF and CLARIBEL on CKD. Nephrology following, recommendation appreciated. Continue with IV diuresis. Pulmonary/Critical care following for hypercarbic respiratory failure. Continue with table top BIPAP. Plan/VTE VTE Prophylaxis Ordered?: Yes Plan 1. Acute metabolic encephalopathy -Secondary to hepatic encephalopathy and hypercarbic encephalopathy -Treating underlying cause 2. Hepatic encephalopathy -Elevated ammonia levels secondary to hepatic congestion from CHF -Continue diuresis for CHF -Ammonia trending downwards 3. Hypercarbic encephalopathy -Secondary to ANGELINA/OHS -Pulmonary/critical care following, recommendations appreciated -Table top BIPAP 4. Acute diastolic congestive heart failure -Nephrology following, recommendations appreciated -Continue diuresis with Lasix and spironolactone 5. CLARIBEL on CKD stage 3 -Nephrology following, recommendations appreciated -Continue diuresis 6. Possible pneumonia -Pulm/crit care started patient on Ceftriaxone. Switched to doxycycline -Day 06/08 6. Atrial fibrillation -Patient on full dose Lovenox 7. Diabetes mellitus -Insulin on hold -Monitor blood glucose 8. Morbid obesity -BMI 55.7 -Complicates care 9. DVT ppx -Full dose Lovenox Disposition: Pending clinical improvement VS, I&O, 24H, Rudybonbrenda Vital Signs/I&O Vital Signs Date Time Temp Pulse Resp B/P (MAP) Pulse Ox O2 Delivery O2 Flow Rate FiO2 09/19/20 15:34 97.4 88 18 100 Room Air 09/19/20 12:00 2.0 09/19/20 12:00 133/58 (83) 09/19/20 04:00 30 I&O- Last 24 Hours up to 6 AM 09/19/20 06:00 Intake Total 790 ml Output Total 5250 ml Balance -4460 ml Laboratory Data 24H LABS Laboratory Tests 2 09/18/20 17:32: Bedside Glucose (Misc Panel) 138H 09/18/20 22:27: Bedside Glucose (Misc Panel) 184H 09/19/20 04:30: Nucleated Red Blood Cells % (auto) 0.0, Anion Gap , Glomerular Filtration Rate 36.2L, Calcium Level 8.6L, Magnesium Level 2.0, Ammonia 67H 09/19/20 05:56: Blood Gas Bicarbonate Standard 35.7H, Arterial Blood pH 7.429, Arterial Blood Partial Pressure CO2 59.1H, Arterial Blood Partial Pressure O2 55.6L, Arterial Blood Total CO2 40.1H, Arterial Blood HCO3 38.3H, Arterial Blood Base Excess 12.1H, Arterial Blood Oxygen Saturation 90.3L CBC/BMP Laboratory Tests 09/19/20 04:30 Microbiology Microbiology 09/18/20 Urine Culture, Received Pending 09/15/20 Stool Occult Blood (EREN) - Final, Complete 09/14/20 Respiratory Virus Panel (PCR) (EREN) - Final, Complete 09/14/20 Blood Culture - Final, Complete NO GROWTH AFTER 5 DAYS 09/14/20 Blood Culture - Final, Complete NO GROWTH AFTER 5 DAYS RACHAEL REDDING 16, 2021 16:59
[2020-09-19 17:25] VITALS: BP 155/80
[2020-09-19 20:00] VITALS: BP 168/73
[2020-09-19] MEDS ORDERED: SODIUM CHLORIDE 0.9% INJ 10 ML SYR IV PRN (22:20)
--- NOTE | 2020-09-19 23:59 | IPN ---
NEPHROLOGY PROGRESS NOTE DATE: 09/19/2020 SUBJECTIVE: Jeannette is seen and examined this morning at the bedside in the Intensive Care Unit. She has diuresed well. She reports no shortness of breath while she is at rest. Lung imaging shows improvement in her congestive heart failure pattern. She continues with Nails catheter and tabletop BIPAP. OBJECTIVE: VITAL SIGNS: Temperature 97.9, pulse 81, respiratory rate 20, blood pressure 168/73, saturating 97% on 2 liters nasal cannula. INTAKE AND OUTPUT: Intake yesterday was not fully recorded. Urine output yesterday was 5.7 liters. Weight in the bed scale today is 129.4 kg which is not really much different from the past couple of days. GENERAL APPEARANCE: The patient is seen lying in bed with the head of the bed elevated, morbidly obese female, awake, alert, cooperative and oriented and in no distress. HEENT: The extraocular muscles are intact. She was wearing nasal cannula at the time of my visit. Jugular veins could not be assessed secondary to body habitus. HEART: Irregular. LUNGS: Diminished with crackles. ABDOMEN: Soft, obese. There is some loosening now of the rather hard edema in the abdominal wall and dependent areas, that was present a couple days ago. EXTREMITIES: Also show improvement in leg edema, previously 2-3+, now 1-2+. GENITOURINARY: Indwelling Nails catheter. NEUROLOGICAL: She is awake, alert, oriented to person, place, cooperative with physical exam. LABORATORY STUDIES: White count 5.9, hemoglobin 9.0, platelet count 165. Sodium 140, potassium 3.9, bicarbonate 41, BUN 44, creatinine 1.7, ammonia 67. IMAGING: Chest x-ray shows improvement in congestive heart failure pattern on today's chest x-ray. CURRENT INPATIENT MEDICATIONS: The patient continues on Lasix 100 mg IV q. 6 hourly. She got a dose of Diuril 500 mg IV times one today. She is started on Doxycycline 100 mg p.o. twice daily. Her remainder medications are unchanged as compared to yesterday. PROBLEMS: 1. [id number] decompensated diastolic congestive heart failure along with right heart failure (echocardiogram June 23, 2020, grade 2 diastolic dysfunction and dilated hypokinetic right ventricle with severe pulmonary hypertension). She made more than 5 liters of urine yesterday with combination IV Lasix and Diuril. She is going to continue on Lasix 100 mg q. 6 hourly and I gave another dose of Diuril today. I estimate she still has probably another 10-15 pounds of water weight. Chest x-ray did show some improvement in congestive heart failure pattern. 2. Chronic kidney disease stage 3 with acute kidney injury superimposed secondary to cardiorenal syndrome her renal function is stable with aggressive diuresis and we will continue to monitor as her volume status is being corrected. 3. Chronic metabolic alkalosis it is secondary to diuretic use and also secondary to underlying chronic respiratory acidosis. 4. Hypokalemia - continue Spironolactone. Potassium level is acceptable. 5. [id number] hypercapnic respiratory failure secondary to decompensated congestive heart failure - continue with aggressive diuretic regimen. Her oxygen requirements have improved. 6. Anemia of chronic kidney disease her iron stores were checked in July and were satisfactory and hemoglobin has been fairly stable in the 's. Once her volume status is corrected, she can be given a dose of Aranesp if required.
[2020-09-20] VITALS: BP 127/58
[2020-09-20] MEDS: SODIUM CHLORIDE NASAL 0.65% SPRAY BTL (OCEAN) SCH ×6 (00:04→21:00)
[2020-09-20] MEDS: FUROSEMIDE 100MG/10ML VIAL (J1940) IV SCH ×2 (00:04→05:28)
[2020-09-20] MEDS: SODIUM CHLORIDE 0.9% INJ 10 ML SYR IV SCH ×7 (00:05→20:59)
[2020-09-20 04:15] VITALS: BP 127/60
[2020-09-20 05:38] LABS: HEMATOCRIT 30.7 % (36.0-47.0); HEMOGLOBIN 9.2 g/dl (12.0-15.5); MEAN CORPUSCULAR HEMOGLOBIN 29.6 pg (27.0-33.0); MEAN CORPUSCULAR VOLUME 98.7 fl (80.0-96.0); PLATELET COUNT, AUTOMATED 177 10^3/uL (150-450); RED BLOOD COUNT 3.11 10^6/uL (4.00-5.40); WHITE BLOOD COUNT 9.7 10^3/uL (4.0-10.0)
[2020-09-20 06:19] LABS: CALCIUM LEVEL 9.1 MG/DL (8.8-10.2); CREATININE FOR GFR 1.69 MG/DL (0.55-1.30); GLOMERULAR FILTRATION RATE 38.7 (>45); MAGNESIUM LEVEL 1.6 MG/DL (1.8-2.4); POTASSIUM SERUM 3.3 MEQ/L (3.5-5.1)
[2020-09-20] MEDS: ENOXAPARIN 150MG/ML SYRINGE (J1650 PER 10MG) SC SCH ×2 (06:49→17:53)
[2020-09-20 08:00] VITALS: BP 125/58
[2020-09-20] MEDS ORDERED: POTASSIUM CHLORIDE 10 MEQ SR TABLET PO ONE (08:00)
[2020-09-20] MEDS: MAG SULF 1GM/100ML (MAG RUN) 1 GM in IV 1 EA IV SCH ×2 (08:32→09:51)
[2020-09-20] MEDS: PANTOPRAZOLE 40MG TAB (PROTONIX) PO SCH ×2 (08:33→21:00)
[2020-09-20] MEDS: DOXYCYCLINE HYCLATE 100MG TABLET PO SCH (08:33)
[2020-09-20] MEDS: aMILoride 5 MG TAB PO SCH ×2 (08:33→21:00)
[2020-09-20] MEDS: ASCORBIC ACID 500 MG TAB PO SCH (08:33)
[2020-09-20] MEDS: BRIMONIDINE 0.15% OPHTH SOLN 5 ML OU SCH ×3 (08:33→21:01)
[2020-09-20] MEDS: TORSEMIDE (DEMADEX) 50 MG PER 1/2 TAB PO SCH ×2 (09:00→17:52)
--- NOTE | 2020-09-20 11:40 | REP ---
PROCEDURE NAME: PICC LINE INSERTION W/SITERITE CLINICAL INFORMATION: Right arm PICC line placement. COMPARISON: None. PROCEDURE DESCRIPTION: The procedure was performed by ETIENNE Bobby, under the direct supervision of Dr. Alas. The risks and benefits of the procedure were explained to the patient and an informed consent was obtained both verbally and written. Directly prior to the start of the procedure a formal time-out was completed in the procedure room. The right basilic vein was localized using ultrasound guidance. The skin was prepped and draped in sterile fashion. Two mL of 1% lidocaine 10 mg/mL was used as a local anesthetic. Using ultrasound guidance the right basilic vein was cannulated, and a 0.018 guidewire was inserted and advanced to the level of SVC using fluoroscopic guidance. The needle was removed and a 5.5 Turkish dilator and peel-away sheath was inserted over the guidewire. A 5.5 Turkish dual lumen catheter was cut to a length of 40 cm. The dilator was removed and the catheter was inserted over the guidewire with the tip ending at the level of the SVC. The peel-away sheath was removed and the catheter was flushed with heparinized saline as per hospital protocol. The catheter was affixed to the skin and a sterile dressing was applied. The patient tolerated the procedure well and there were no immediate complications. CONCLUSION: PICC line insertion into the right basilic vein. 0.9 minutes of fluoroscopy time was utilized for this procedure. Some fluoroscopic images are performed with last image hold technology. These images require no additional radiation. <Electronically signed by Laura Sim > 09/19/20 [id number] <Electronically signed by Bello Alas > 09/20/20 0139
[2020-09-20 12:00] VITALS: BP 111/56
--- NOTE | 2020-09-20 13:36 | IPNPDOC ---
Subjective Date Seen The patient was seen on 09/20/20. Subjective Chief Complaint/HPI Mrs. Cooney is a 70 year old female from [facility] with morbid obesity, ANGELINA, OHS, and COPD who is here for acute HFpEF and CLARIBEL on CKD. Yesterday, patient diuresed 4.8L. This morning, she was seen in the PCU. Denied any worsening dyspnea or chest pain. Otherwise, nephrology changed patient's diuretic to amiloride due to hypokalemia. Objective Physical Examination General Exam: Positive: Alert, Cooperative Neck Exam: Positive: Supple Chest Exam: Positive: Diminished Heart Exam: Positive: Rate Normal, Irregular Rhythm Abdomen Exam: Positive: Normal bowel sounds, Soft; Negative: Tenderness Extremity Exam: Positive: Edema (bilateral pitting edema) Neuro Exam: Positive: Normal Speech Psych Exam: Positive: Mental status NL, Mood NL Assessment /Plan Assessment Mrs. Cooney is a 70 year old female from [facility] with morbid obesity, ANGELINA, OHS, and COPD who is here for acute HFpEF and CLARIBEL on CKD. Nephrology following, recommendation appreciated. Continue with diuresis. Pulmonary/Critical care following for hypercarbic respiratory failure. Continue with table top BIPAP. Plan/VTE VTE Prophylaxis Ordered?: Yes Plan 1. Acute metabolic encephalopathy -Secondary to hepatic encephalopathy and hypercarbic encephalopathy -Treating underlying cause 2. Hepatic encephalopathy -Elevated ammonia levels secondary to hepatic congestion from CHF -Continue diuresis for CHF -Ammonia trending downwards 3. Hypercarbic encephalopathy -Secondary to ANGELINA/OHS -Pulmonary/critical care following, recommendations appreciated -Tabletop BIPAP 4. Acute diastolic congestive heart failure -Nephrology following, recommendations appreciated -Diuretics changed to amiloride due to hypokalemia -Will recheck BMP later in the day to observe for improvement in electrolytes 5. CLARIBEL on CKD stage 3 -Nephrology following, recommendations appreciated -Continue diuresis 6. Possible pneumonia -Pulm/crit care started patient on Ceftriaxone. Switched to doxycycline. Switched back to Ceftriaxone for E.coli UTI -Day 4 7. Atrial fibrillation -Patient on full dose Lovenox 8. Diabetes mellitus -Insulin on hold -Monitor blood glucose 9. Morbid obesity -BMI 55.7 -Complicates care 10. E.coli UTI -Ceftriaxone day 1 11. DVT ppx -Full dose Lovenox Disposition: Pending clinical improvement VS, I&O, 24H, Fishbone Vital Signs/I&O Vital Signs Date Time Temp Pulse Resp B/P (MAP) Pulse Ox O2 Delivery O2 Flow Rate FiO2 09/20/20 12:00 2.0 09/20/20 12:00 98.1 103 18 111/56 (74) 98 Nasal Cannula 09/19/20 04:00 30 I&O- Last 24 Hours up to 6 AM 09/20/20 06:00 Intake Total 590 ml Output Total 5275 ml Balance -4685 ml Laboratory Data 24H LABS Laboratory Tests 2 09/20/20 05:22: Nucleated Red Blood Cells % (auto) 0.0, Anion Gap 1L, Glomerular Filtration Rate 38.7L, Calcium Level 9.1, Magnesium Level 1.6L CBC/BMP Laboratory Tests 09/20/20 05:22 Microbiology Microbiology 09/18/20 Urine Culture - Preliminary, Resulted Escherichia Coli 09/15/20 Stool Occult Blood (EREN) - Final, Complete 09/14/20 Respiratory Virus Panel (PCR) (EREN) - Final, Complete 09/14/20 Blood Culture - Final, Complete NO GROWTH AFTER 5 DAYS 09/14/20 Blood Culture - Final, Complete NO GROWTH AFTER 5 DAYS RACHAEL REDDING DO Sep 20, 2020 13:36
[2020-09-20] MEDS ORDERED: FUROSEMIDE 100MG/10ML VIAL (J1940) IV SCH (14:00)
[2020-09-20] MEDS ORDERED: cefTRIAXone SOD 1 GM in D5W MINI-BAG PLUS 50 ML IV SCH (15:00)
[2020-09-20 16:00] VITALS: BP 135/63
[2020-09-20 20:40] VITALS: BP 149/62
--- NOTE | 2020-09-20 23:51 | IPN ---
INPATIENT PROGRESS NOTE DATE: 09/20/2020 SUBJECTIVE: Jeannette is seen and examined this morning at the bedside. She denies any new complaints. She continues to diurese well. Volume status is improving. She denies shortness of breath at rest. Labs show increasing alkalemia. Serum bicarbonate is up to 44 and her diuretics were subsequently adjusted. PHYSICAL EXAMINATION: VITAL SIGNS: Temperature 97.4, pulse 88, respiratory rate 18, blood pressure 155/80, saturating 95% on 2 liter nasal cannula. INTAKE/OUTPUT: Intake yesterday was 830 cc. Urine output was 4.8 liters. Net negative 4 liters. Weight in the bed scale today is 118 kg. GENERAL: Patient is seen lying in bed, morbidly obese female, awake, alert, oriented, in no distress. HEENT: Extraocular muscles are intact. Nasal cannula is in place. Neck veins cannot be assessed secondary to body habitus. HEART: Sounds are irregular. There was a pressure dressing on the left chest wall. LUNGS: Breath sounds are diminished bilaterally. There was no accessory muscle use. No tachypnea. ABDOMEN: Soft, obese. There is pitting edema in the abdominal wall and dependent areas and it is less tight than the past couple of days. EXTREMITIES: Show ongoing 1 to 2+ edema bilaterally. The edema comes up through the legs to the hip and the abdominal wall and dependent areas and flanks. She has a PICC line in the right arm. GENITOURINARY: Shows indwelling Nails catheter. NEUROLOGIC: She is awake, alert, oriented x3, interactive, at baseline mentation. LABORATORY STUDIES: Sodium 139, potassium 3.3, bicarbonate 44, BUN 40, creatinine 1.6. Magnesium 1.6. Hemoglobin 9.3, platelets 177,000. Urine culture grew E. coli. IMAGING: Chest x-ray yesterday shows mild diffuse interstitial and alveolar infiltrates. INPATIENT MEDICATIONS: I stopped the I.V. Lasix and put her on Torsemide 50 mg p.o. b.i.d. I stopped Spironolactone and put her on Amiloride 5 mg p.o. b.i.d. She got a dose of Acetazolamide 500 mg I.V. x1. She got a dose of potassium 40 mEq p.o. x1 and magnesium sulfate 2 grams I.V. She was started on Ceftriaxone 1 gram I.V. daily. Her oral Doxycycline was stopped. The remainder of her medications are unchanged as compared to yesterday. PROBLEMS: 1. Acute on chronic decompensated diastolic congestive heart failure along with right heart failure (echo June 2020 grade 2 diastolic dysfunction and dilated hypokinetic right ventricle with severe pulmonary hypertension): She continues to diurese very well. She needs an aggressive diuretic regimen in order to diurese. She has gotten more alkalotic. Serum bicarbonate is up to 44. I am going to stop the I.V. Lasix. I switched her over to Torsemide and I gave Amiloride along with Acetazolamide. I am hopeful that she will continue to diurese well on this regimen. She still is considerably fluid overloaded and probably has another 10-15 pounds of fluid to diurese. 2. Metabolic alkalosis: It is in compensation to underlying chronic respiratory acidosis, but it has also worsened with recent aggressive diuretics. I held the I.V. Lasix, switched her to Torsemide. I have also ordered Amiloride and Acetazolamide as they both ameliorate metabolic alkalosis. She needs to continue further diuresis as she is still in fluid overload. 3. Hypokalemia: She received oral potassium supplementation. She is started on Amiloride 5 mg b.i.d. as it is potassium sparing but also ameliorates metabolic alkalosis. 4. CKD stage 3 with superimposed acute kidney injury secondary to cardiorenal syndrome: Her renal function is improving with diuresis. We will continue to monitor as her volume status is being corrected. 5. Anemia of chronic kidney disease: Her iron stores were checked in July and were satisfactory. Once her volume status is corrected, she can be given a dose of Aranesp if needed. 6. Acute on chronic hypercapnic respiratory failure secondary to decompensated congestive heart failure: Continue with aggressive diuretic regimen. Her oxygen requirements are decreasing. 7. Hypomagnesemia: She received magnesium supplementation. 8. E. coli urinary tract infection: She was started on Ceftriaxone by the primary service.
[2020-09-21] VITALS: BP 113/56
[2020-09-21] MEDS: SODIUM CHLORIDE NASAL 0.65% SPRAY BTL (OCEAN) SCH ×6 (00:54→21:32)
[2020-09-21 04:24] VITALS: BP 139/65
[2020-09-21] MEDS: SODIUM CHLORIDE 0.9% INJ 10 ML SYR IV SCH ×5 (05:15→21:33)
[2020-09-21 06:07] LABS: HEMATOCRIT 28.3 % (36.0-47.0); HEMOGLOBIN 8.4 g/dl (12.0-15.5); MEAN CORPUSCULAR HEMOGLOBIN 29.2 pg (27.0-33.0); MEAN CORPUSCULAR HGB CONC 29.7 g/dl (32.0-36.5); MEAN CORPUSCULAR VOLUME 98.3 fl (80.0-96.0); PLATELET COUNT, AUTOMATED 159 10^3/uL (150-450); RED BLOOD COUNT 2.88 10^6/uL (4.00-5.40); WHITE BLOOD COUNT 9.9 10^3/uL (4.0-10.0)
[2020-09-21 07:01] LABS: CALCIUM LEVEL 9.2 MG/DL (8.8-10.2); CREATININE FOR GFR 1.74 MG/DL (0.55-1.30); GLOMERULAR FILTRATION RATE 37.4 (>45); POTASSIUM SERUM 3.5 MEQ/L (3.5-5.1)
[2020-09-21 08:00] VITALS: BP 118/55
[2020-09-21] MEDS ORDERED: DOXYCYCLINE HYCLATE 100 MG in D5W MINI-BAG PLUS 100 ML IV SCH (08:00)
[2020-09-21] MEDS ORDERED: AMPICILLIN SOD/SULBACTAM SOD 3 GM in D5W MINI-BAG PLUS 100 ML IV SCH (09:00)
[2020-09-21] MEDS: aMILoride 5 MG TAB PO SCH ×2 (09:43→21:32)
[2020-09-21] MEDS: FUROSEMIDE 100MG/10ML VIAL (J1940) IV SCH ×3 (09:44→21:32)
[2020-09-21] MEDS: LACTOBACILLUS ACIDOPHILUS CAP (BACID) PO SCH ×2 (09:44→18:04)
[2020-09-21] MEDS: PANTOPRAZOLE 40MG TAB (PROTONIX) PO SCH ×2 (09:44→21:32)
[2020-09-21] MEDS: ASCORBIC ACID 500 MG TAB PO SCH (09:45)
[2020-09-21] MEDS: BRIMONIDINE 0.15% OPHTH SOLN 5 ML OU SCH ×3 (09:45→21:36)
[2020-09-21 12:00] VITALS: BP 123/61
--- NOTE | 2020-09-21 13:37 | IPN ---
PROGRESS NOTE DATE: 09/21/2020 SUBJECTIVE: Jeannette is seen and examined this morning at the bedside. She complains of nosebleed overnight. She did not diurese that satisfactorily the past 24 hours, made less than 2 liters of urine. I am increasing her diuretics again today. VITAL SIGNS: Temperature 97.0, pulse 103, respiratory rate 18, blood pressure 139/65, saturating 95% on 2 liters with nasal cannula. Intake yesterday was 960. Urine output yesterday was 1700. Net negative 700 mL. Weight in the bed scale today is 118 kg, unchanged as compared to yesterday but overall about 10 kg down since admission. GENERAL: Patient is seen lying in bed, morbidly obese female, awake, alert, and in no distress. Extraocular muscles are intact. Nasal cannula is in place. Tongue is moist. Neck veins cannot be assessed because of morbid obesity. HEART: Sounds are irregularly irregular. There is a pressure dressing on the left chest wall. LUNGS: Show diminished and distant breath sounds with some crackle at the base. ABDOMEN: Obese. There is pitting edema in the abdominal wall and dependent areas. GENITOURINARY: Shows indwelling Nails catheter. Legs show ongoing pitting edema, 1-2+, that comes up to the hip, thigh, abdominal wall, and flanks. NEUROLOGIC: She is oriented times three at baseline mentation. LABORATORY DATA: White count 9.9, hemoglobin 8.4, platelets 159. Sodium 138, potassium 3.5, bicarbonate 41, BUN 42, creatinine 1.7. INPATIENT MEDICATIONS: He stopped the torsemide, and I ordered Lasix 80 mg every 6 hours. She is also getting a dose of acetazolamide today 500 mg intravenous (IV) times one. She continues on amiloride 5 mg by mouth twice a day. Remainder of medications is unchanged as compared to yesterday with the exception of that I note her ceftriaxone was stopped and she was started on doxycycline and ampicillin. PROBLEMS: 1. Acute on chronic decompensated diastolic congestive heart failure with right heart failure. Echocardiogram June 2020: Grade 2 diastolic dysfunction and dilated hypokinetic right ventricle with severe pulmonary hypertension. She did not diurese that well yesterday. She made less than 2 liters of urine. I had cut the diuretics down yesterday because she was getting considerably alkalotic with bicarbonate up to 44. Today I have resumed her again on IV Lasix. She is also going to get a dose of IV Diamox. She is also on amiloride twice a day. She still needs to be further diuresed. 2. Metabolic alkalosis. It is in compensation to underlying respiratory acidosis. It is also due to ongoing aggressive diuresis. She has been given acetazolamide and amiloride to help ameliorate the metabolic alkalosis. 3. Hypokalemia. Continue amiloride. 4. Chronic kidney disease (CKD), stage III with superimposed acute kidney injury secondary to cardiorenal syndrome. She is tolerating the aggressive diuresis well. Renal function is stable. 5. Anemia of chronic kidney disease. Iron stores were checked in July and were satisfactory. She reports epistaxis and also had an episode of bleeding from the central line in the left chest wall that has a pressure dressing. Hemoglobin is down to 8.4 today. I note that her Lovenox has been held because of these bleeding issues.
--- NOTE | 2020-09-21 13:40 | IPNPDOC ---
Subjective Date Seen The patient was seen on 09/21/20. Subjective Chief Complaint/HPI Mrs. Cooney is a 70 year old female from [facility] with morbid obesity, ANGELINA, OHS, and COPD who is here for acute HFpEF and CLARIBEL on CKD. Today, she was not feeling well and was feeling achy all over. Otherwise, she has been having epistaxis and clots from the nose. Will hold Lovenox and follow CBC throughout day. Objective Physical Examination General Exam: Positive: Alert, Cooperative Neck Exam: Positive: Supple Chest Exam: Positive: Diminished Heart Exam: Positive: Rate Normal, Irregular Rhythm Abdomen Exam: Positive: Normal bowel sounds, Soft; Negative: Tenderness Extremity Exam: Positive: Edema (bilateral pitting edema) Neuro Exam: Positive: Normal Speech Psych Exam: Positive: Mental status NL, Mood NL Assessment /Plan Assessment Mrs. Cooney is a 70 year old female from [facility] with morbid obesity, ANGELINA, OHS, and COPD who is here for acute HFpEF and CLARIBEL on CKD. Nephrology following, recommendation appreciated. Continue with diuresis. Pulmonary/Critical care following for hypercarbic respiratory failure. Continue with table top BIPA Plan/VTE VTE Prophylaxis Ordered?: Yes Plan 1. Acute metabolic encephalopathy -Secondary to hepatic encephalopathy and hypercarbic encephalopathy -Treating underlying cause 2. Hepatic encephalopathy -Elevated ammonia levels secondary to hepatic congestion from CHF -Continue diuresis for CHF -Ammonia trending downwards 3. Hypercarbic encephalopathy -Secondary to ANGELINA/OHS -Pulmonary/critical care following, recommendations appreciated -Tabletop BIPAP 4. Acute diastolic congestive heart failure -Nephrology following, recommendations appreciated -Diuretics changed to amiloride due to hypokalemia -Will recheck BMP later in the day to observe for improvement in electrolytes 5. CLARIBEL on CKD stage 3 -Nephrology following, recommendations appreciated -Continue diuresis 6. Possible pneumonia -Pulm/crit care started patient on Ceftriaxone. Switched to doxycycline. Switched back to Ceftriaxone for E.coli UTI -Completed 5 days of antibiotics 7. Atrial fibrillation -Patient was on full dose Lovenox, but was having epistaxis and large clots -Will hold Lovenox today and follow CBC 8. Diabetes mellitus -Insulin on hold -Monitor blood glucose 9. Morbid obesity -BMI 55.7 -Complicates care 10. Contaminant UTI -Pharmacy and ID discussed patient case -Findings on urine culture may be a contaminant due to multiple organisms. UA fairly unremarkable with 7 WBC. No fever or leukocytosis. -Unlikely to have UTI. Discontinued antibiotics. 11. DVT ppx -Full dose Lovenox Disposition: Pending clinical improvement VS, I&O, 24H, Fishbone Vital Signs/I&O Vital Signs Date Time Temp Pulse Resp B/P (MAP) Pulse Ox O2 Delivery O2 Flow Rate FiO2 09/21/20 08:00 97.8 101 22 118/55 (76) 90 Nasal Cannula 2.0 09/19/20 04:00 30 I&O- Last 24 Hours up to 6 AM 09/21/20 06:00 Intake Total 1020 ml Output Total 925 ml Balance 95 ml Laboratory Data 24H LABS Laboratory Tests 2 09/21/20 05:52: Nucleated Red Blood Cells % (auto) 0.0, Anion Gap 4L, Glomerular Filtration Rate 37.4L, Calcium Level 9.2, Magnesium Level 2.0 CBC/BMP Laboratory Tests 09/21/20 05:52 Microbiology Microbiology 09/18/20 Urine Culture - Final, Complete Escherichia Coli Enterococcus Faecalis Staphylococcus Warneri 09/15/20 Stool Occult Blood (EREN) - Final, Complete 09/14/20 Respiratory Virus Panel (PCR) (EREN) - Final, Complete 09/14/20 Blood Culture - Final, Complete NO GROWTH AFTER 5 DAYS 09/14/20 Blood Culture - Final, Complete NO GROWTH AFTER 5 DAYS RACHAEL REDDING DO Sep 21, 2020 13:40
[2020-09-21 16:09] VITALS: BP 137/93
[2020-09-21] MEDS: ACETAMINOPHEN TAB 650MG DOSE (2X325MG) PO PRN ×2 (16:13→21:32)
[2020-09-21 16:16] LABS: HEMATOCRIT 28.7 % (36.0-47.0); HEMOGLOBIN 8.5 g/dl (12.0-15.5); MEAN CORPUSCULAR HEMOGLOBIN 29.4 pg (27.0-33.0); MEAN CORPUSCULAR HGB CONC 29.6 g/dl (32.0-36.5); MEAN CORPUSCULAR VOLUME 99.3 fl (80.0-96.0); PLATELET COUNT, AUTOMATED 169 10^3/uL (150-450); RED BLOOD COUNT 2.89 10^6/uL (4.00-5.40); WHITE BLOOD COUNT 10.2 10^3/uL (4.0-10.0)
[2020-09-21] MEDS ORDERED: ANALGESIC BALM CRM 3OZ TOP PRN (18:05)
[2020-09-21 18:16] LABS: BLOOD UREA NITROGEN 41 MG/DL (7-18); CARBON DIOXIDE LEVEL 45 MEQ/L (21-32); CHLORIDE LEVEL 91 MEQ/L (98-107); GLUCOSE, FASTING 190 MG/DL (70-100); POTASSIUM SERUM 3.9 MEQ/L (3.5-5.1); SODIUM LEVEL 135 MEQ/L (136-145)
[2020-09-21 20:00] VITALS: BP 123/54
[2020-09-21] MEDS: LIDOCAINE 5% (LIDODERM) PATCH TD SCH (21:31)
[2020-09-21] MEDS: ANALGESIC BALM CRM 3OZ TOP PRN (21:31)
[2020-09-22] VITALS: BP 128/60
[2020-09-22] MEDS: FUROSEMIDE 100MG/10ML VIAL (J1940) IV SCH ×4 (03:00→19:53)
[2020-09-22 04:00] VITALS: BP 133/59
[2020-09-22 04:10] LABS: HEMATOCRIT 26.1 % (36.0-47.0); HEMOGLOBIN 7.8 g/dl (12.0-15.5); MEAN CORPUSCULAR HEMOGLOBIN 29.5 pg (27.0-33.0); MEAN CORPUSCULAR HGB CONC 29.9 g/dl (32.0-36.5); MEAN CORPUSCULAR VOLUME 98.9 fl (80.0-96.0); PLATELET COUNT, AUTOMATED 166 10^3/uL (150-450); RED BLOOD COUNT 2.64 10^6/uL (4.00-5.40); WHITE BLOOD COUNT 10.8 10^3/uL (4.0-10.0)
[2020-09-22] MEDS: SODIUM CHLORIDE NASAL 0.65% SPRAY BTL (OCEAN) SCH ×6 (04:10→19:52)
[2020-09-22] MEDS: SODIUM CHLORIDE 0.9% INJ 10 ML SYR IV SCH ×5 (04:11→19:52)
[2020-09-22 04:29] LABS: ERYTHROCYTE SEDIMENTATION RATE 126 mm/hr (0-30)
[2020-09-22 04:36] LABS: C REACTIVE PROTEIN QUANTITATIV 6.87 MG/DL (0.00-0.30); CALCIUM LEVEL 8.7 MG/DL (8.8-10.2); CREATININE FOR GFR 1.83 MG/DL (0.55-1.30); GLOMERULAR FILTRATION RATE 35.3 (>45); POTASSIUM SERUM 3.9 MEQ/L (3.5-5.1)
[2020-09-22 08:00] VITALS: BP 129/56
[2020-09-22 08:20] LABS: PERCENT SATURATION 15.7 % (13.2-45.0)
[2020-09-22] MEDS: ASCORBIC ACID 500 MG TAB PO SCH (08:39)
[2020-09-22] MEDS: aMILoride 5 MG TAB PO SCH ×2 (08:39→19:53)
[2020-09-22] MEDS: PANTOPRAZOLE 40MG TAB (PROTONIX) PO SCH ×2 (08:39→19:53)
[2020-09-22] MEDS: LACTOBACILLUS ACIDOPHILUS CAP (BACID) PO SCH ×2 (08:39→18:29)
[2020-09-22] MEDS: **NOTE PATIENT COMMENT** MISC XX SCH (08:40)
[2020-09-22] MEDS: BRIMONIDINE 0.15% OPHTH SOLN 5 ML OU SCH ×3 (08:40→19:51)
[2020-09-22] MEDS: guaiFENesin ER 600 MG TAB PO SCH ×2 (09:00→19:53)
--- NOTE | 2020-09-22 10:22 | REP ---
INDICATION: Increasing inflammatory markers, infiltrate on CXR COMPARISON: Multiple the latest 07/28/2018 TECHNIQUE: Standard helical technique without intravenous contrast administration FINDINGS: There is no significant change in appearance of the mediastinum or pulmonary maria guadalupe. There is a small right pleural effusion. There is a small pericardial effusion versus chronic pericardial thickening. This is stable. There is no significant change in appearance of the imaged osseous structures. Evaluation of the lung holliday shows numerous pulmonary nodules obscured by motion artifact and seen in conjunction with scattered airspace opacities and representing a change from the prior exam. There is a focal area of consolidation in each lung base also representing a change. IMPRESSION: 1. The exam is limited by artifact. 2. New numerous pulmonary nodules etiology uncertain. Metastatic disease cannot be ruled out. 3. Scattered airspace opacities heaviest in the right upper and middle lobes possible infectious etiology correlate clinically. 4. Bilateral lower lung field dependent focal consolidations right greater than left likely representing subsegmental atelectatic changes. 5. Small right pleural effusion. 6. Other findings as described above. <Electronically signed by Frantz Montenegro > 09/22/20 [id number]
--- NOTE | 2020-09-22 10:27 | REP ---
INDICATION: Flank pain, H. COMPARISON: 04/09/2015 the latest prior TECHNIQUE: Limited noncontrast enhanced standard helical technique without intravenous or oral bowel preparatory contrast administration. FINDINGS: Exam is further limited by motion artifact. Limited evaluation of the solid intra-abdominal organs and gallbladder show no gross abnormalities. Limited evaluation of the pancreas and right adrenal gland show no gross abnormalities. There is a stable benign left adrenal gland nodule. Limited evaluation of the kidneys shows no gross abnormalities. Limited evaluation of the abdominal aorta and para-aortic regions show no gross abnormalities. Limited evaluation of the bowel loops and the mesenteries show no gross abnormalities. Note is again made of colonic diverticulosis. There is no evidence of free fluid or free air. There is no evidence of a mass or adenopathy. There is a Nails balloon in the urinary bladder decompressing it. Bone window technique throughout the examination shows chronic changes status quo. IMPRESSION: There is no evidence of acute intra-abdominal or intrapelvic disease. Findings as described above. <Electronically signed by Frantz Montenegro > 09/22/20 [id number]
[2020-09-22 10:47] LABS: HEMATOCRIT 27.6 % (36.0-47.0); HEMOGLOBIN 8.2 g/dl (12.0-15.5); MEAN CORPUSCULAR HEMOGLOBIN 29.4 pg (27.0-33.0); MEAN CORPUSCULAR HGB CONC 29.7 g/dl (32.0-36.5); MEAN CORPUSCULAR VOLUME 98.9 fl (80.0-96.0); PLATELET COUNT, AUTOMATED 179 10^3/uL (150-450); RED BLOOD COUNT 2.79 10^6/uL (4.00-5.40); WHITE BLOOD COUNT 10.5 10^3/uL (4.0-10.0)
[2020-09-22 12:00] VITALS: BP 136/56
--- NOTE | 2020-09-22 13:18 | IPNPDOC ---
Subjective Date Seen The patient was seen on 09/22/20. Subjective Chief Complaint/HPI Mrs. Cooney is a 70 year old female from [facility] with morbid obesity, ANGELINA, OHS, and COPD who is here for acute HFpEF and CLARIBEL on CKD. This morning, patient was not feeling well. She generally feels achy all over. Her bloody nose has improved. Otherwise, hemoglobin continued to drop to 7.8. Lovenox was discontinued. Repeat hemoglobin increased to 8.2. Otherwise, I had obtained a CT chest due to increasing inflammatory markers and respiratory symptoms. Demonstrated nodules. Ordered procalcitonin, Acid fast bacilli smear, and ANCA (considered GPA with nasal and kidney involvement). Spoke with pulmonary. Most likely infectious but possibly sarcoid. Also can consider alveolar hemorrhage, but unlikely. Patient has a questionable history of sarcoidosis. Will repeat blood cultures and start on antibiotics. Objective Physical Examination General Exam: Positive: Alert, Cooperative Neck Exam: Positive: Supple Chest Exam: Positive: Diminished Heart Exam: Positive: Rate Normal, Irregular Rhythm Abdomen Exam: Positive: Normal bowel sounds, Soft; Negative: Tenderness Extremity Exam: Positive: Edema (bilateral pitting edema) Neuro Exam: Positive: Normal Speech Psych Exam: Positive: Mental status NL, Mood NL Assessment /Plan Assessment Mrs. Cooney is a 70 year old female from [facility] with morbid obesity, ANGELINA, OHS, and COPD who is here for acute HFpEF and CLARIBEL on CKD. Nephrology following, recommendation appreciated. Continue with diuresis. Pulmonary/Critical care following for hypercarbic respiratory failure. Continue with table top BIPAP CT chest demonstrated multiple nodules. Ordered blood cultures, Acid fast bacillus smear, and procalcitonin for infectious work up. Added ANCA given nasal and renal findings. Will monitor H&H for possible alveolar hemorrhage in the setting of full dose Lovenox (Lovenox held). This could also be sarcoid, but other differential will need to be ruled out first. Plan/VTE VTE Prophylaxis Ordered?: Yes Plan 1. Acute metabolic encephalopathy -Secondary to hepatic encephalopathy and hypercarbic encephalopathy -Treating underlying cause 2. Hepatic encephalopathy -Elevated ammonia levels secondary to hepatic congestion from CHF -Continue diuresis for CHF -Ammonia trending downwards 3. Hypercarbic encephalopathy -Secondary to ANGELINA/OHS -Pulmonary/critical care following, recommendations appreciated -Tabletop BIPAP 4. Acute diastolic congestive heart failure -Nephrology following, recommendations appreciated -Patient on amiloride and Lasix 5. CLARIBEL on CKD stage 3 -Nephrology following, recommendations appreciated -Continue diuresis 6. Pneumonia -Order for CT chest due to CXR findings and increasing inflammatory markers -Spoke with pulm/crit care. Will see patient tomorrow. Imaging was most sug gestive for infection -Repeat blood cultures -Ordered for procalcitonin and AFBS -Will start on Zosyn and Doxycycline day 1 7. Atrial fibrillation -Patient was on full dose Lovenox, but was having epistaxis and large clots -Continue to hold Lovenox 8. Diabetes mellitus -Insulin on hold -Monitor blood glucose 9. Morbid obesity -BMI 55.7 -Complicates care 10. DVT ppx -Full dose Lovenox Disposition: Pending clinical improvement VS, I&O[facility] Vital Signs/I&O Vital Signs Date Time Temp Pulse Resp B/P (MAP) Pulse Ox O2 Delivery O2 Flow Rate FiO2 09/22/20 08:00 98.2 82 20 129/56 (80) 96 Nasal Cannula 2.0 09/19/20 04:00 30 I&O- Last 24 Hours up to 6 AM 09/22/20 06:00 Intake Total 900 ml Output Total 3475 ml Balance -2575 ml Laboratory Data 24H LABS Laboratory Tests 2 09/21/20 15:54: Nucleated Red Blood Cells % (auto) 0.0, Anion Gap , Glomerular Filtration Rate 36.0L, Calcium Level 9.0 09/22/20 03:49: Nucleated Red Blood Cells % (auto) 0.0, Anion Gap 0L, Glomerular Filtration Rate 35.3L, Calcium Level 8.7L, Erythrocyte Sedimentation Rate 126H, Iron Level 29L, Total Iron Binding Capacity 185L, Transferrin % Saturation 15.7, Ferritin 240, Lactate Dehydrogenase 359H, C-Reactive Protein, Quantitative 6.87H 09/22/20 10:17: Nucleated Red Blood Cells % (auto) 0.0, Reticulocyte # (auto) 49.1, Percent Reticulocyte Count 1.8H, Reticulocyte Hemoglobin Equivalent 27.6 CBC/BMP Laboratory Tests 09/21/20 15:54 09/22/20 03:49 09/22/20 10:17 Microbiology Microbiology 09/18/20 Urine Culture - Final, Complete Escherichia Coli Enterococcus Faecalis Staphylococcus Warneri 09/15/20 Stool Occult Blood (EREN) - Final, Complete 09/14/20 Respiratory Virus Panel (PCR) (EREN) - Final, Complete 09/14/20 Blood Culture - Final, Complete NO GROWTH AFTER 5 DAYS 09/14/20 Blood Culture - Final, Complete NO GROWTH AFTER 5 DAYS RACHAEL REDDING 19, 2021 12:23
[2020-09-22] MEDS ORDERED: PIPERACILLIN/TAZOBACTAM SOD 4.5 GM in D5W MINI-BAG PLUS 50 ML IV SCH (14:00)
[2020-09-22] MEDS: PIPERACILLIN/TAZOBACTAM SOD 3.375 GM in D5W MINI-BAG PLUS 50 ML IV SCH ×2 (14:12→19:51)
--- NOTE | 2020-09-22 14:37 | IPN ---
PROGRESS NOTE DATE: 09/22/2020 Ms. Cooney is seen this morning on her bedside. She is still not comfortable and remains short of breath. She has been on oxygen. She denies any nausea or vomiting. She is currently being treated for pneumonia, encephalopathy with hepatic dysfunction, and congestive heart failure. PHYSICAL EXAMINATION: Temperature 98.2 degrees Fahrenheit, heart rate 94 per minute, respiratory rate 20 per minute, blood pressure 136/56 mmHg, and oxygen saturation 97% on 2 liters oxygen. Intake and output records from yesterday show a negative fluid balance of 2.9 liters. She weighed 117.5 kg today, while she was 130 kg on September 18. Head is atraumatic. Neck supple, and jugular venous distention (JVD) markedly elevated. Heart sounds are irregular and lungs with diminished breath sounds bilaterally. Abdomen obese and nontender. Bowel sounds are present. Extremities without any cyanosis or clubbing. Lower extremity edema is 2-3+ bilaterally. Neurologically she is grossly intact. Today's labs show WBC count 10.5, hemoglobin 8.2, and hematocrit 27.6. Platelets 179. Sodium 135, potassium 3.9, CO2 of 43, BUN 43, and creatinine 1.83. Glucose 192 and calcium 8.7. PROBLEMS: 1. Acute on chronic congestive heart failure. She has quite complicated cardiac issues with right-sided heart failure and pulmonary hypertension. She is responding to diuretic at present, and we will continue with the same while monitoring her electrolytes and kidney function closely. 2. Anemia. She has severe anemia with iron deficiency. At present I will hold off on intravenous iron due to acute medical problems and pneumonia. We will consider to transfuse if needed. Once her medical condition is optimized, then we can consider giving her intravenous iron. 3. Acute kidney injury superimposed on chronic kidney disease. Slight change in the kidney function, and no uremic symptoms. We will continue to diurese her aggressively. 4. Pneumonia. Patient is currently being treated with doxycycline and Zosyn. I will recommend to monitor her kidney function and adjust the dose according to her renal function.
[2020-09-22] MEDS: DOXYCYCLINE HYCLATE 100 MG in D5W MINI-BAG PLUS 100 ML IV SCH (15:02)
[2020-09-22 16:00] VITALS: BP 146/57
[2020-09-22] MEDS: LIDOCAINE 5% (LIDODERM) PATCH TD SCH (19:52)
[2020-09-22] MEDS: ACETAMINOPHEN TAB 650MG DOSE (2X325MG) PO PRN (19:53)
[2020-09-22] MEDS: ANALGESIC BALM CRM 3OZ TOP PRN (19:55)
[2020-09-22 20:00] VITALS: BP 131/59
[2020-09-23] VITALS: BP 119/58
[2020-09-23] MEDS: PIPERACILLIN/TAZOBACTAM SOD 3.375 GM in D5W MINI-BAG PLUS 50 ML IV SCH ×4 (02:05→20:33)
[2020-09-23] MEDS: FUROSEMIDE 100MG/10ML VIAL (J1940) IV SCH ×4 (02:05→20:38)
[2020-09-23] MEDS: DOXYCYCLINE HYCLATE 100 MG in D5W MINI-BAG PLUS 100 ML IV SCH ×2 (03:00→15:18)
[2020-09-23 04:00] VITALS: BP 124/59
[2020-09-23] MEDS: SODIUM CHLORIDE NASAL 0.65% SPRAY BTL (OCEAN) SCH ×6 (04:06→20:39)
[2020-09-23] MEDS: SODIUM CHLORIDE 0.9% INJ 10 ML SYR IV SCH ×5 (05:35→21:03)
[2020-09-23 05:52] LABS: HEMATOCRIT 26.5 % (36.0-47.0); HEMOGLOBIN 7.9 g/dl (12.0-15.5); MEAN CORPUSCULAR HEMOGLOBIN 29.2 pg (27.0-33.0); MEAN CORPUSCULAR HGB CONC 29.8 g/dl (32.0-36.5); MEAN CORPUSCULAR VOLUME 97.8 fl (80.0-96.0); PLATELET COUNT, AUTOMATED 169 10^3/uL (150-450); RED BLOOD COUNT 2.71 10^6/uL (4.00-5.40); WHITE BLOOD COUNT 9.3 10^3/uL (4.0-10.0)
[2020-09-23 06:20] LABS: BLOOD UREA NITROGEN 46 MG/DL (7-18); CALCIUM LEVEL 8.5 MG/DL (8.8-10.2); CARBON DIOXIDE LEVEL 45 MEQ/L (21-32); CHLORIDE LEVEL 89 MEQ/L (98-107); CREATININE FOR GFR 1.89 MG/DL (0.55-1.30); GLUCOSE, FASTING 142 MG/DL (70-100); POTASSIUM SERUM 4.3 MEQ/L (3.5-5.1); SODIUM LEVEL 133 MEQ/L (136-145)
[2020-09-23 08:00] VITALS: BP 124/60
[2020-09-23] MEDS: guaiFENesin ER 600 MG TAB PO SCH ×2 (08:21→20:39)
[2020-09-23] MEDS: PANTOPRAZOLE 40MG TAB (PROTONIX) PO SCH ×2 (08:22→20:39)
[2020-09-23] MEDS: LACTOBACILLUS ACIDOPHILUS CAP (BACID) PO SCH ×2 (08:22→17:41)
[2020-09-23] MEDS: ASCORBIC ACID 500 MG TAB PO SCH (08:22)
[2020-09-23] MEDS: aMILoride 5 MG TAB PO SCH ×2 (08:22→20:39)
[2020-09-23] MEDS: **NOTE PATIENT COMMENT** MISC XX SCH (08:23)
[2020-09-23] MEDS: BRIMONIDINE 0.15% OPHTH SOLN 5 ML OU SCH ×3 (08:23→20:43)
--- NOTE | 2020-09-23 11:10 | IPNPDOC ---
Subjective Date Seen The patient was seen on 09/23/20. Subjective Chief Complaint/HPI Mrs. Cooney is a 70 year old female from [facility] with morbid obesity, ANGELINA, OHS, and COPD who is here for acute HFpEF and CLARIBEL on CKD. Yesterday, CT chest was suggestive of PNA and Procalcitonin was elevated. Restarted patient on antibiotics. This morning, she is still dyspneic with a cough. Objective Physical Examination General Exam: Positive: Alert, Cooperative Neck Exam: Positive: Supple Chest Exam: Positive: Diminished Heart Exam: Positive: Rate Normal, Irregular Rhythm Abdomen Exam: Positive: Normal bowel sounds, Soft; Negative: Tenderness Extremity Exam: Positive: Edema (bilateral pitting edema) Neuro Exam: Positive: Normal Speech Psych Exam: Positive: Mental status NL, Mood NL Assessment /Plan Assessment Mrs. Cooney is a 70 year old female from [facility] with morbid obesity, ANGELINA, OHS, and COPD who is here for acute HFpEF and CLARIBEL on CKD. Nephrology following, recommendation appreciated. Continue with diuresis. Pulmonary/Critical care following for hypercarbic respiratory failure. Continue with table top BIPAP CT chest demonstrated multiple nodules. Ordered blood cultures, Acid fast bacill us smear, and procalcitonin for infectious work up. Procalcitonin was elevated. Patient was restarted on antibiotics. Otherwise, pending coccidioides, histoplasma, [id number], ANCA, and angiotensin convert enzyme. Plan/VTE VTE Prophylaxis Ordered?: Yes Plan 1. Acute metabolic encephalopathy -Secondary to hepatic encephalopathy and hypercarbic encephalopathy -Treating underlying cause 2. Hepatic encephalopathy -Elevated ammonia levels secondary to hepatic congestion from CHF -Continue diuresis for CHF -Ammonia trending downwards 3. Hypercarbic encephalopathy -Secondary to ANGELINA/OHS -Pulmonary/critical care following, recommendations appreciated -Tabletop BIPAP 4. Acute diastolic congestive heart failure -Nephrology following, recommendations appreciated -Patient on amiloride and Lasix 5. CLARIBEL on CKD stage 3 -Nephrology following, recommendations appreciated -Continue diuresis 6. Pneumonia -Order for CT chest due to CXR findings and increasing inflammatory markers -Spoke with pulm/crit care. Will see patient tomorrow. Imaging was most suggestive for infection -Repeat blood cultures -Ordered for AFBS, coccidioides, histoplasma, [id number] -Procalcitonin was elevated -Will start on Zosyn and Doxycycline day 2 7. Atrial fibrillation -Patient was on full dose Lovenox, but was having epistaxis and large clots -Continue to hold Lovenox 8. Diabetes mellitus -Insulin on hold -Monitor blood glucose 9. Morbid obesity -BMI 55.7 -Complicates care 10. DVT ppx -SCD and TEDs -Lovenox on hold due to bleed and anemia Disposition: Pending clinical improvement VS, I&O, 24H, [facility] Vital Signs/I&O Vital Signs Date Time Temp Pulse Resp B/P (MAP) Pulse Ox O2 Delivery O2 Flow Rate FiO2 09/23/20 08:00 98.0 67 18 124/60 (81) 99 Nasal Cannula 2.0 09/19/20 04:00 30 I&O- Last 24 Hours up to 6 AM 09/23/20 06:00 Intake Total 930 ml Output Total 3650 ml Balance -2720 ml Laboratory Data 24H LABS Laboratory Tests 2 09/22/20 13:36: 09/23/20 05:35: Nucleated Red Blood Cells % (auto) 0.0 09/23/20 05:36: Anion Gap , Glomerular Filtration Rate 34.0L, Calcium Level 8.5L CBC/BMP Laboratory Tests 09/23/20 05:35 09/23/20 05:36 Microbiology Microbiology 09/22/20 Acid Fast Stain, Received Pending 09/22/20 Mycobacterial Culture, Received Pending 09/22/20 Blood Culture, Received Pending 09/22/20 Blood Culture, Received Pending 09/18/20 Urine Culture - Final, Complete Escherichia Coli Enterococcus Faecalis Staphylococcus Warneri 09/15/20 Stool Occult Blood (EREN) - Final, Complete 09/14/20 Respiratory Virus Panel (PCR) (EREN) - Final, Complete 09/14/20 Blood Culture - Final, Complete NO GROWTH AFTER 5 DAYS 09/14/20 Blood Culture - Final, Complete NO GROWTH AFTER 5 DAYS RACHAEL REDDING DO Sep 23, 2020 11:10
[2020-09-23 12:00] VITALS: BP 120/56
[2020-09-23] MEDS: acetaZOLAMIDE 250 MG TAB PO SCH ×2 (12:11→20:39)
[2020-09-23] MEDS: ENOXAPARIN 40MG/0.4ML SYRINGE (J1650 PER 10MG) SC SCH (12:11)
--- NOTE | 2020-09-23 13:29 | IPN ---
PULMONARY PROGRESS NOTE DATE: 09/23/2020 SUBJECTIVE: The patient was seen and examined this morning during bedside rounds. Since the patient was last seen, she was having issues with nosebleeds that she has had chronically. The patient had previously been seen by ENT as an outpatient for her frequent nosebleeds. Her Lovenox was held due to the nosebleeds and they did resolve. She does have anemia chronically at baseline and her H&H had dropped briefly but did not require any transfusion. The patient was also noted to have increasing malaise and cough. She had increased CRP and inflammatory markers and had repeat imaging done with a CT of her chest yesterday. She also had a urine culture that had come back positive for E. coli, Enterococcus faecalis and Staphylococcus warneri. The patient had previously been on ceftriaxone. However, the last dose was on 09/20. She was then placed on doxycycline instead for further deescalation. With her abnormal CT, the patient was restarted with broad-spectrum antibiotics with Zosyn and the doxycycline which had previously been discontinued was also restarted. The patient this morning appears somewhat somnolent. She is arousable and is able to answer questions appropriately although she dozes off very quickly. Overnight, the patient had refused her BiPAP and was taking it off very early in the evening. When questioned about it today, she states she was having difficulty tolerating the mask but is willing to try using her BiPAP again during the day while napping as well as wearing it at nighttime. The patient does notice some increased dyspnea as well as cough today. She denies any chest pain, has not had any fevers or chills noted. She does have some improvement in her lower extremity edema with diuresis. PHYSICAL EXAM: Vitals: Temperature 96.7, pulse 76, respirations 18, blood pressure 124/59, O2 sat 99% on two liters cannula. In 930 mL, out 3.2, net negative 2.2 liters. General: The patient is a morbidly obese female, is sitting in the bed and is answering questions appropriately and arousable although somewhat more drowsy today and is dozing off quickly. She is not tachypneic and does not appear to be using any accessory muscles for respiration. HEENT: Normocephalic, atraumatic. There are moist mucous membranes noted. Mallampati 4. Neck: Supple. Unable to clearly assess JVD. No palpable cervical adenopathy. Cardiac: Irregularly irregular, normal S1 and S2. Distant heart sounds noted. Unable to clearly auscultate murmurs. Lungs: Diminished breath sounds bilaterally with increased crackles noted and occasional rhonchi. No significant wheezing. Abdomen: Morbidly obese, soft, nontender, nondistended. Extremities: There is improvement in her lower extremity edema with +1-2 pitting edema now bilaterally with chronic venous stasis skin changes. She has chronic left-sided weakness. LABS: WBC 9.3, hemoglobin 7.9. Platelets are 169. Chemistries: Sodium is 133, Potassium is .4.3. Chloride is 89. Bicarb is 45, BUN 46. Creatinine is 1.89. Glucose is 142. CRP increased at 6.87. Procalcitonin increased to 1.42. IMAGING: CT of chest, 09/22/20: Compared to the previous CT from 07/28/18, there are new nodular patchy opacities noted extensively bilaterally. There was some suggestion of nodular opacities on the last CT although imaging was somewhat limited with respiratory motion artifacts. There area also new increased areas of opacity with some air bronchograms between the right upper lobe and the right middle lobe. On the previous CT, there was a trace right pleural effusion as well as basilar atelectasis and on the CT, there is a small right pleural effusion with some increased atelectasis/consolidation in the right base as well as an area of atelectasis in the left base. There is cardiomegaly and the pulmonary artery is enlarged. There is a suspected small hiatal hernia. No significant mediastinal adenopathy noted. ASSESSMENT AND PLAN: Ms. Cooney is a 70-year-old female with a past medical history of CHF with pulmonary hypertension, history of sarcoidosis, ANGELINA/OHS with chronic hypoxemic and hypercarbic respiratory failure, not compliant with CPAP, CKD, paroxysmal atrial fibrillation who presented initially with complaints of worsening shortness of breath, cough and increased lower extremity edema. The patient was in decompensated heart failure on admission, likely right-sided heart failure as well as [id number] renal failure secondary to cardiorenal syndrome. She also was found initially to have pnekc-[id number] hypercarbic respiratory failure in the setting of decompensated heart failure that did improve with noninvasive positive pressure ventilation. The patient was then noted to have increasing dyspnea as well as increased inflammatory markers. She had not had significant leukocytosis and no fevers but her CRP and procalcitonin had increased. She was previously on ceftriaxone as well as doxycycline although her antibiotics had been discontinued. She did have a urine culture which grew Enterococcus faecalis, E. coli and Staph warneri. Her repeat CT did show findings of new multiple nodular patchy opacities as well as some areas of consolidation and air bronchograms more in the right upper lobe than the right middle lobe. The patient was therefore restarted yesterday on broad-spectrum antibiotics with Zosyn and doxycycline. 1. Pneumonia. The patient's CT chest shows increasing nodular opacities bilaterally as well as air bronchograms noted. Her previous CT was from 2019 and at that time, there was suggestion of some possible small nodules although exam was very limited to respiratory motion artifact. With her increasing CRP and procalcitonin, I suspect an infectious etiology for her opacities although other potential etiologies are possible as well including inflammatory lung disease particularly given her history of sarcoidosis or even malignancy. The patient doses have a previous history of chronic steroids in the setting of her sarcoidosis. She reports that her sarcoidosis was diagnosed when she was much younger from a lung biopsy although we do not clearly have those records. It did not appear that she was following up with anybody as an outpatient for her history of sarcoidosis. We will follow up with the results of her sputum culture. We will also check fungal titers with coccidioidomycosis, Histoplasma, evio-e-npghlz and galactomannan. We will also check a sputum AFB. The patient does have a history of nosebleeds chronically. There was some concern that she may have underlying vasculitis although less likely. Her ANCAs are ordered and pending. Her anticoagulation is on hold. Patient was on full dose lovenox previously and with her renal dysfunction and NC oxygen contributed to her epistaxis episodes. She has not had any further episodes of nosebleeds or any hemoptysis. She has not required any significant increase in her oxygen requirements. We will continue with broad spectrum antibiotics with Zosyn and doxycycline and we will continue to trend her procalcitonin to assess that response. We will follow up results of blood culture. We will order echo as well as there is a possibility with the multiple nodules of possible septic emboli although not entirely consistent on imaging. The patient will need repeat imaging for followup of the nodular opacities. If there is no improvement with treatment for infectious process, then she may need further diagnostic testing at that time. Would hold off on steroids at this time but if she does have worsening respiratory failure, then would start her on steroids at that time. 2. History of chronic hypercarbic respiratory failure as well as likely chronic hypoxemic respiratory failure in the setting of her ANGELINA/OHS. The patient did have [id number] hypercarbia in the setting of her acute decompensated heart failure which did improve with diuresis and with noninvasive positive pressure ventilation. She had been noncompliant as an outpatient in the correction with her CPAP. She also had refused her BiPAP last night and does appear to be somewhat more drowsy and somnolent today. She is willing to use her BiPAP, however, with naps and at night which she was encouraged to do so. The patient does have increasing bicarb on her chemistry and while she does not have an ABG today, suspect her pCO2 is increasing likely in the setting of her metabolic alkalosis from her aggressive diuresis. We will therefore give her 250 mg of acetazolamide x2 for just today for her additional metabolic alkalosis secondary to her diuresis. The patient is being managed by nephrology for her decompensated heart failure with amiloride and Lasix for diuretics. She does have some mildly elevated BUN and creatinine although initially her CLARIBEL did improve with diuresis. She does have a history of CKD at baseline. 3. DVT prophylaxis: She was on Lovenox full dose AC which is being held currently and she is on NIKKI and SCDs. Will restart with prophylactic dose of lovenox renally dosed Code Status: FULL CODE. MTDD
--- NOTE | 2020-09-23 13:40 | IPN ---
PROGRESS NOTE DATE: 09/23/2020 SUBJECTIVE: Ms. Cooney is seen this morning on her bedside. She is currently resting with her BiPAP on. She has a pressure dressing on her left upper chest and shoulder area and nursing staff reports that central line was removed and she was oozing from the site due which pressure dressing was applied. She has been diuresing very well with significant negative fluid balance. PHYSICAL EXAMINATION: VITALS: Temperature 96.8 degrees Fahrenheit, heart rate 75 per minute, respiratory rate 18 per minute, blood pressure 120/56 mmHg, oxygen saturation 100% on 2 liter oxygen. INTAKE/OUTPUT: Records from yesterday show a negative fluid balance of 2.27 liters. HEENT: Head is atraumatic. Neck is supple and JVD is still elevated. LUNGS: Diminished breath sounds. HEART: Sounds are irregular. ABDOMEN: Obese and bowel sounds are present. EXTREMITIES: Without any cyanosis or clubbing. Lower extremities edema is still at least 2+. LABORATORY STUDIES: Today's labs show WBC 9.3, hemoglobin 7.9, hematocrit 26.5, platelets 169,000. Sodium 133, potassium 4.3, CO2 45, BUN 46, creatinine 1.89. PROBLEMS: 1. Acute on chronic congestive heart failure: Patient has quite complicated cardiac issues. She is responding to diuretics very well and we will continue to aim for a negative fluid balance. At present, she is on Furosemide 80 mg every 6 hours and I am going to continue with the same for today. 2. Acute kidney injury superimposed on chronic kidney disease: Kidney function is about the same with only mild change. 3. Hyponatremia: She has mild hyponatremia, which is most likely related to her congestive heart failure and diuretic use. At this point, we will continue to monitor closely. 4. Anemia: Her anemia is slightly worse. She did have some blood loss due to oozing from the central line site. At this point, there is no emergent need for transfusion. 5. Atrial fibrillation: Patient has been on anticoagulation and Amiodarone. 6. Pneumonia: She remains on Doxycycline and Zosyn.
[2020-09-23] MEDS: ANALGESIC BALM CRM 3OZ TOP PRN ×2 (14:05→18:38)
[2020-09-23 16:00] VITALS: BP 117/58
[2020-09-23 20:00] VITALS: BP 137/64
[2020-09-23] MEDS: LIDOCAINE 5% (LIDODERM) PATCH TD SCH (21:32)
[2020-09-24 00:05] VITALS: BP 130/60
[2020-09-24] MEDS: SODIUM CHLORIDE NASAL 0.65% SPRAY BTL (OCEAN) SCH ×6 (00:25→19:54)
[2020-09-24] MEDS: PIPERACILLIN/TAZOBACTAM SOD 3.375 GM in D5W MINI-BAG PLUS 50 ML IV SCH ×2 (02:10→08:28)
[2020-09-24] MEDS: FUROSEMIDE 100MG/10ML VIAL (J1940) IV SCH ×3 (03:49→17:09)
[2020-09-24] MEDS: DOXYCYCLINE HYCLATE 100 MG in D5W MINI-BAG PLUS 100 ML IV SCH ×2 (03:50→15:00)
[2020-09-24 04:00] VITALS: BP 117/62
[2020-09-24] MEDS: SODIUM CHLORIDE 0.9% INJ 10 ML SYR IV SCH ×4 (05:24→17:10)
[2020-09-24 08:00] VITALS: BP 141/57
[2020-09-24] MEDS: ASCORBIC ACID 500 MG TAB PO SCH (08:28)
[2020-09-24] MEDS: LACTOBACILLUS ACIDOPHILUS CAP (BACID) PO SCH ×2 (08:28→17:09)
[2020-09-24] MEDS: guaiFENesin ER 600 MG TAB PO SCH ×2 (08:28→20:41)
[2020-09-24] MEDS: ENOXAPARIN 40MG/0.4ML SYRINGE (J1650 PER 10MG) SC SCH (08:28)
[2020-09-24] MEDS: PANTOPRAZOLE 40MG TAB (PROTONIX) PO SCH ×2 (08:28→20:41)
[2020-09-24] MEDS: aMILoride 5 MG TAB PO SCH ×2 (08:28→20:41)
[2020-09-24] MEDS: BRIMONIDINE 0.15% OPHTH SOLN 5 ML OU SCH ×3 (08:29→20:42)
[2020-09-24] MEDS: **NOTE PATIENT COMMENT** MISC XX SCH (08:29)
[2020-09-24] MEDS: ANALGESIC BALM CRM 3OZ TOP PRN ×3 (08:48→19:53)
[2020-09-24 09:03] LABS: HEMATOCRIT 29.2 % (36.0-47.0); HEMOGLOBIN 8.5 g/dl (12.0-15.5); MEAN CORPUSCULAR HEMOGLOBIN 28.9 pg (27.0-33.0); MEAN CORPUSCULAR HGB CONC 29.1 g/dl (32.0-36.5); MEAN CORPUSCULAR VOLUME 99.3 fl (80.0-96.0); PLATELET COUNT, AUTOMATED 222 10^3/uL (150-450); RED BLOOD COUNT 2.94 10^6/uL (4.00-5.40); WHITE BLOOD COUNT 8.3 10^3/uL (4.0-10.0)
--- NOTE | 2020-09-24 09:15 | ECHO ---
ECHOCARDIOGRAM DATE OF PROCEDURE: 09/23/2020 Age: 70 Gender: F Height: 60 inches Weight: 259 pounds REFERRING PHYSICIAN: Lexy Mathews MD INDICATION: Heart failure unspecified, sarcoidosis. MEASUREMENTS: 2D Measurements: Aortic root: 3.0 cm Proximal ascending aorta: 3.3 cm Left atrium: 5.4 cm Interventricular septum: 1.12 cm Posterior wall: 1.1 cm Left ventricle diastole: 4.3 cm Inferior vena cava: 2.7 cm with marked reduction of respiratory variation) Doppler Measurements: No aortic stenosis No aortic regurgitation Aortic valve velocity: 139 cm/s LVOT velocity: 108 cm/s LVOT VTI: 22.1 cm Very mild mitral regurgitation Mitral E velocity: 104 cm/s Mitral A velocity: 37.8 cm/s Mitral deceleration time: 151 ms Moderate tricuspid regurgitation Estimated right ventricular systolic pressure: At least 77 mmHg Estimated right atrial pressure: At least 20 mmHg Pulmonary acceleration time: 98 ms MITRAL ANNULAR TISSUE DOPPLER E prime septal: 6.1 cm/s E prime lateral: 4.9 cm/s DESCRIPTION: Rhythm was sinus. This was a moderately technical difficult echocardiogram. This was a 2D, M-mode, color flow Doppler, and pulsed-wave Doppler examination mitral annular tissue Doppler. CONCLUSIONS: 1. Normal left ventricle internal dimensions and wall thickness. Normal regional left ventricular (LV) wall motion and wall thickening. Normal left ventricular (LV) systolic function. Left ventricular ejection fraction (LVEF) 70% by visual estimate. Restrictive LV diastolic filling pattern (grade 3 or 4 left ventricular (LV) diastolic dysfunction). 2. Severe left atrial dilatation. 3. Suggestive of severe elevation of estimated right ventricular systolic pressure (at least 77 mmHg). Normal right ventricle size and systolic function. Moderate tricuspid regurgitation with structurally normal-appearing tricuspid leaflets. 4. Inferior vena cava plethora suggestive of elevated central venous pressure of at least 20 mmHg. 5. Small circumferential pericardial effusion without diastolic chamber collapse. COMMENTS: Dr. Lexy Moy
[2020-09-24 09:28] LABS: CALCIUM LEVEL 9.2 MG/DL (8.8-10.2); CREATININE FOR GFR 2.03 MG/DL (0.55-1.30); GLOMERULAR FILTRATION RATE 31.3 (>45); POTASSIUM SERUM 4.2 MEQ/L (3.5-5.1)
[2020-09-24] MEDS: ACETAMINOPHEN TAB 650MG DOSE (2X325MG) PO PRN ×2 (11:31→18:29)
[2020-09-24 11:52] VITALS: BP 141/61
--- NOTE | 2020-09-24 12:49 | IPNPDOC ---
Subjective Date Seen The patient was seen on 09/24/20. Subjective Chief Complaint/HPI Mrs. Cooney is a 70 year old female from [facility] with morbid obesity, ANGELINA, OHS, and COPD who is here for acute HFpEF and CLARIBEL on CKD. This morning, she still has dyspnea, but improved compared to yesterday. Objective Physical Examination General Exam: Positive: Alert, Cooperative Neck Exam: Positive: Supple Chest Exam: Positive: Diminished Heart Exam: Positive: Rate Normal, Irregular Rhythm Abdomen Exam: Positive: Normal bowel sounds, Soft; Negative: Tenderness Extremity Exam: Positive: Edema (bilateral pitting edema) Neuro Exam: Positive: Normal Speech Psych Exam: Positive: Mental status NL, Mood NL Assessment /Plan Assessment Mrs. Cooney is a 70 year old female from [facility] with morbid obesity, ANGELINA, OHS, and COPD who is here for acute HFpEF and CLARIBEL on CKD. Nephrology following, recommendation appreciated. Continue with diuresis. Otherwise, renal function was worsening with Zosyn, switched to Cefepime. Pulmonary/Critical care following for hypercarbic respiratory failure. Continue with table top BIPAP. CT chest demonstrated multiple nodules. Ordered blood cultures, Acid fast bacillus smear, and procalcitonin for infectious work up. Procalcitonin was elevated. Patient was restarted on antibiotics. Otherwise, pending coccidioides, histoplasma, [id number], ANCA, and angiotensin convert enzyme. Plan/VTE VTE Prophylaxis Ordered?: Yes Plan 1. Acute metabolic encephalopathy -Secondary to hepatic encephalopathy and hypercarbic encephalopathy -Treating underlying cause 2. Hepatic encephalopathy -Elevated ammonia levels secondary to hepatic congestion from CHF -Continue diuresis for CHF -Ammonia trending downwards 3. Hypercarbic encephalopathy -Secondary to ANGELINA/OHS -Pulmonary/critical care following, recommendations appreciated -Tabletop BIPAP 4. Acute diastolic congestive heart failure -Nephrology following, recommendations appreciated -Patient on amiloride and Lasix 5. CLARIBEL on CKD stage 3 -Nephrology following, recommendations appreciated -Continue diuresis 6. Hospital acquired pneumonia -Order for CT chest due to CXR findings and increasing inflammatory markers -Spoke with pulm/crit care. Will see patient tomorrow. Imaging was most suggestive for infection -Repeat blood cultures -Ordered for AFBS, coccidioides, histoplasma, [id number] -Procalcitonin was elevated -Cefepime and Doxycycline day 3 -Suspecting HAP since procalcitonin initially trended downward at the beginning of the hospitalization, then suddenly increased 7. Atrial fibrillation -Patient was on full dose Lovenox, but was having epistaxis and large clots -Now on DVT ppx of Lovenox 8. Diabetes mellitus -Insulin on hold -Monitor blood glucose 9. Morbid obesity -BMI 55.7 -Complicates care 10. DVT ppx -SCD and TEDs -DVT ppx Lovenox Disposition: Pending clinical improvement and improvement of renal function. Switched Zosyn to Cefepime due to worsening renal function. VS, I&O, 24H, Fishbone Vital Signs/I&O Vital Signs Date Time Temp Pulse Resp B/P (MAP) Pulse Ox O2 Delivery O2 Flow Rate FiO2 09/24/20 12:00 2.0 09/24/20 11:52 98.3 70 18 141/61 (87) 99 Nasal Cannula 09/24/20 00:26 30 I&O- Last 24 Hours up to 6 AM 09/24/20 06:00 Intake Total 930 ml Output Total 4575 ml Balance -3645 ml Laboratory Data 24H LABS Laboratory Tests 2 09/24/20 08:44: Nucleated Red Blood Cells % (auto) 0.0, Anion Gap 4L, Glomerular Filtration Rate 31.3L, Calcium Level 9.2 CBC/BMP Laboratory Tests 09/24/20 08:44 Microbiology Microbiology 09/22/20 Acid Fast Stain - Final, Resulted 09/22/20 Mycobacterial Culture, Resulted Pending 09/22/20 Blood Culture - Preliminary, Resulted No growth after 24 hours . All specim... 09/22/20 Blood Culture - Preliminary, Resulted No growth after 24 hours . All specim... 09/18/20 Urine Culture - Final, Complete Escherichia Coli Enterococcus Faecalis Staphylococcus Warneri 09/15/20 Stool Occult Blood (EREN) - Final, Complete 09/14/20 Respiratory Virus Panel (PCR) (EREN) - Final, Complete 09/14/20 Blood Culture - Final, Complete NO GROWTH AFTER 5 DAYS 09/14/20 Blood Culture - Final, Complete NO GROWTH AFTER 5 DAYS RACHAEL REDDING DO Sep 24, 2020 12:49
[2020-09-24] MEDS ORDERED: CEFEPIME HCL 2 GM in D5W MINI-BAG PLUS 50 ML IV SCH (14:00)
[2020-09-24] MEDS: CEFEPIME HCL 1 GM in D5W MINI-BAG PLUS 50 ML IV SCH (14:10)
[2020-09-24 16:00] VITALS: BP 121/58
[2020-09-24 20:00] VITALS: BP 129/62
[2020-09-24] MEDS: LIDOCAINE 5% (LIDODERM) PATCH TD SCH (20:46)
[2020-09-25] MEDS: SODIUM CHLORIDE NASAL 0.65% SPRAY BTL (OCEAN) SCH ×6 (00:08→20:33)
[2020-09-25] MEDS: FUROSEMIDE 100MG/10ML VIAL (J1940) IV SCH ×3 (00:09→17:03)
[2020-09-25 00:15] VITALS: BP 118/51
[2020-09-25] MEDS: CEFEPIME HCL 1 GM in D5W MINI-BAG PLUS 50 ML IV SCH ×2 (01:19→14:16)
[2020-09-25] MEDS: DOXYCYCLINE HYCLATE 100 MG in D5W MINI-BAG PLUS 100 ML IV SCH ×2 (02:12→15:30)
[2020-09-25] MEDS: ACETAMINOPHEN TAB 650MG DOSE (2X325MG) PO PRN ×3 (03:44→20:33)
[2020-09-25 04:00] VITALS: BP 118/54
[2020-09-25 04:40] LABS: HEMATOCRIT 26.7 % (36.0-47.0); HEMOGLOBIN 8.1 g/dl (12.0-15.5); MEAN CORPUSCULAR HEMOGLOBIN 29.5 pg (27.0-33.0); MEAN CORPUSCULAR HGB CONC 30.3 g/dl (32.0-36.5); MEAN CORPUSCULAR VOLUME 97.1 fl (80.0-96.0); PLATELET COUNT, AUTOMATED 239 10^3/uL (150-450); RED BLOOD COUNT 2.75 10^6/uL (4.00-5.40); WHITE BLOOD COUNT 8.9 10^3/uL (4.0-10.0)
[2020-09-25 05:24] LABS: CALCIUM LEVEL 8.5 MG/DL (8.8-10.2); CREATININE FOR GFR 2.1 MG/DL (0.55-1.30); GLOMERULAR FILTRATION RATE 30.1 (>45); POTASSIUM SERUM 4.5 MEQ/L (3.5-5.1)
[2020-09-25] MEDS: SODIUM CHLORIDE 0.9% INJ 10 ML SYR IV SCH ×2 (05:30→17:05)
[2020-09-25] MEDS: ANALGESIC BALM CRM 3OZ TOP PRN (05:38)
[2020-09-25 08:00] VITALS: BP 117/57
[2020-09-25] MEDS: ENOXAPARIN 40MG/0.4ML SYRINGE (J1650 PER 10MG) SC SCH (08:06)
[2020-09-25] MEDS: ASCORBIC ACID 500 MG TAB PO SCH (08:07)
[2020-09-25] MEDS: LACTOBACILLUS ACIDOPHILUS CAP (BACID) PO SCH ×2 (08:07→17:03)
[2020-09-25] MEDS: PANTOPRAZOLE 40MG TAB (PROTONIX) PO SCH ×2 (08:07→20:33)
[2020-09-25] MEDS: guaiFENesin ER 600 MG TAB PO SCH ×2 (08:07→20:33)
[2020-09-25] MEDS: aMILoride 5 MG TAB PO SCH ×2 (08:07→20:33)
[2020-09-25] MEDS: BRIMONIDINE 0.15% OPHTH SOLN 5 ML OU SCH ×3 (08:08→20:34)
[2020-09-25] MEDS: **NOTE PATIENT COMMENT** MISC XX SCH (08:08)
[2020-09-25 12:00] VITALS: BP 127/63
--- NOTE | 2020-09-25 14:00 | IPN ---
PROGRESS NOTE DATE: 09/25/2020 SUBJECTIVE: The patient is seen and examined this morning at bedside. She states that she is feeling well. No new concerns today. She is hopeful to return to [facility] as soon as possible. She is still using the hospital BiPAP machine as her machine has not been brought over. She denies any shortness of breath or chest pain. OBJECTIVE: VITAL SIGNS: Temperature 97.5 degrees Fahrenheit temporal, heart rate 81, respiratory rate 18, blood pressure 117/57, satting 98% on 2 liters via nasal cannula. GENERAL: The patient is awake and alert, laying comfortably in bed in no acute distress. HEENT: Normocephalic, atraumatic. Mucous membranes moist. Sclerae anicteric. NECK: Supple, trachea midline. LUNGS: Clear to auscultation bilaterally without any wheezes, rhonchi or rales appreciated. HEART: Irregularly irregular rhythm with normal rate. No murmurs appreciated. ABDOMEN: Obese, soft, nontender, bowel sounds present. EXTREMITIES: 2+ pitting edema in the lower extremities and across the posterior thighs bilaterally. LABORATORY DATA: White blood cell count 8.9, hemoglobin 8.1, hematocrit 26.7, platelet count 239. Sodium 134, potassium 4.5, chloride 90. Bicarb 42, BUN 47, creatinine 2.1, glucose 113, calcium 8.5. ASSESSMENT AND PLAN: This is a 70-year-old female with past medical history of CHF with pulmonary hypertension, history of sarcoidosis, ANGELINA/OHS with chronic hypoxemia and hypercarbic respiratory failure, noncompliant with CPAP at home, CKD, paroxysmal atrial fibrillation, who initially presented with worsening shortness of breath, cough and lower extremity swelling. Pulmonary service was consulted for worsening shortness of breath and found to have new changes on CT scan concerning for pneumonia. 1. Pneumonia. The patient is on antibiotic coverage with Cefepime and Doxycycline. Sputum culture has not been complete but AFB stain is negative. Blood cultures are negative at 48 hours. Her additional fungal markers remain pending. At this point I would recommend continue with antibiotic coverage for at least a 7 day course. Currently her symptoms have improved and clinically she appears improved. 2. ANGELINA/OHS. It was requested to have her home CPAP brought over from [facility]. Apparently she is doing well on the hospital machine. However, she notes that it becomes uncomfortable after awhile and she does not feel like she can keep it on all night. She does feel her home machine is more comfortable. Compliance with CPAP when she returns to [facility] was reinforced today. Dr. Hogan; I saw the patient and participated in the [place] elements of the history,physical exam and medical decision process. She is responding and nearing her baseline. Abnormal imaging findings are best followed once she has cleared her acute illness. STEPHANIE
[2020-09-25 15:47] VITALS: BP 128/55
--- NOTE | 2020-09-25 16:17 | IPNPDOC ---
Text Note Date of Service The patient was seen on 09/25/20. NOTE Subjective: No any acute events overnight. No fever or chills. Objective: GENERAL APPEARANCE: NAD HEENT: no scleral icterus, no JVD, EOMI CARDIOVASCULAR: Irregularly irregular LUNGS: Diminished lung sounds bilaterally ABDOMEN: soft & not tender w palpitation, obese MUSCULOSKELETAL: no cyanosis, no swelling INTEGUMENT: no generalized pallor NEUROLOGICAL: cranial nerve function from 2-12 intact intact, follows commands, speech not dysarthric Assessment and plan Patient is 70 years old female with past medical history of CHF with pulmonary hypertension, history of sarcoidosis, ANGELINA/OHS with chronic hypoxemia and hypercarbic respiratory failure, noncompliant with CPAP at home, CKD, paroxysmal atrial fibrillation presented to the hospital with increased shortness of breath and legs swelling. Acute metabolic encephalopathy/acute hypercarbic respiratory failure Most likely secondary to CO2 narcosis secondary to obstructive sleep apnea Resolved Continue BiPAP Hepatic encephalopathy Ammonia trended down Resolved Acute diastolic CHF Continue Lasix IV Echo showed Restrictive LV diastolic filling pattern (grade 3 or 4 left ventricular (LV) diastolic dysfunction). Severe left atrial dilatation. Suggestive of severe elevation of estimated right ventricular systolic pressure (at least 77 mmHg). Ejection fraction around 70%. Hospital acquired pneumonia CT chest demonstrated multiple nodules. Patient has a history of sarcoidosis Patient received cefepime and doxycycline Await sputum culture AFB negative Await fungal markers Type 2 diabetes Insulin sliding scale Diabetes diet Atrial fibrillation Heart rate under control Patient was on full dose Lovenox, but was having epistaxis and large clots Now on DVT ppx of Lovenox Morbid obesity -BMI 55.7 -Complicates care ANGELINA/OHS Continue with CPAP VS,Fishbone, I+O VS, Fishbone, I+O Laboratory Tests 09/25/20 04:34 Vital Signs Date Time Temp Pulse Resp B/P (MAP) Pulse Ox O2 Delivery O2 Flow Rate FiO2 09/25/20 15:47 97.2 84 20 128/55 (79) 100 NIPPV (BIPAP/CPAP) 2.0 09/24/20 00:26 30 I&O- Last 24 Hours up to 6 AM 09/25/20 06:00 Intake Total 1540 ml Output Total 4370 ml Balance -2830 ml WILFREDO MELO DO Sep 25, 2020 16:17
[2020-09-25 20:00] VITALS: BP 129/59
--- NOTE | 2020-09-25 20:28 | IPN ---
NEPHROLOGY PROGRESS NOTE DATE: 09/25/2020 SUBJECTIVE: Miss Cooney is seen this morning at her bedside. She is feeling about the same and denies any new complaints. She is chronically bed bound. Her peripheral edema has improved significantly with aggressive diuresis. She continues to use her CPAP when she is asleep. At present she is using oxygen on nasal cannula. OBJECTIVE: PHYSICAL EXAMINATION: VITAL SIGNS: Temperature 97.3 degrees Fahrenheit, heart rate 72 per minute and respiratory rate 18 per minute, blood pressure 127/63 mm of mercury and oxygen saturation is 100%. HEENT: Head is atraumatic. NECK: Neck veins are minimally distended now. HEART: Regular. LUNGS: Diminished breath sounds bilaterally. ABDOMEN: Obese and bowel sounds are present. EXTREMITIES: Without any cyanosis or clubbing. Peripheral edema on the lower extremities has improved significantly. INTAKE AND OUTPUT: Intake and output records from yesterday show a negative fluid balance of 3.7 liters. LABORATORY STUDIES: Today's labs show a WBC count of 8.9, hemoglobin 8.1 and hematocrit 26.7. Sodium 134, potassium 4.5, CO2 42, BUN 47 and creatinine 2.10. PROBLEMS: 1. Lllvw-ji-xoltgil congestive heart failure volume status has improved significantly and she is still in negative fluid balance. I had cut down her diuretic dose yesterday and we will cut it down further as she seems to be very well diuresed now. I think she can be switched back to oral diuretics now and we will stop her intravenous Lasix for now. 2. Acute kidney injury superimposed on chronic kidney disease no significant change in kidney function. She has been in negative fluid balance and electrolytes are stable. She has no uremic symptoms. We will continue to monitor her kidney function on a daily basis as long as she is here. 3. Hyponatremia mild chronic hyponatremia is essentially unchanged and is related to diuretics and congestive heart failure. 4. Anemia her anemia is significant and she also has known iron deficiency. We will order one dose of Injectafer 750 mg and continue to monitor her hematocrit. There is no emergent indication for a transfusion at this point. All other issues are being addressed by the Hospitalist Service.
[2020-09-25] MEDS: LIDOCAINE 5% (LIDODERM) PATCH TD SCH (20:33)
[2020-09-25] MEDS ORDERED: FERRIC CARBOXYMALTOSE INJ 750 MG, VIAL MATE ADAPTER 1 EACH in NS 250 ML IV ONE (21:00)
[2020-09-25 23:29] LABS: CLOSTRIDIUM DIFFICILE PCR NEGATIVE (NEGATIVE)
[2020-09-26] MEDS: CEFEPIME HCL 1 GM in D5W MINI-BAG PLUS 50 ML IV SCH (02:09)
[2020-09-26] MEDS: SODIUM CHLORIDE NASAL 0.65% SPRAY BTL (OCEAN) SCH ×6 (03:49→20:08)
[2020-09-26] MEDS: DOXYCYCLINE HYCLATE 100 MG in D5W MINI-BAG PLUS 100 ML IV SCH (03:50)
[2020-09-26] MEDS: SODIUM CHLORIDE 0.9% INJ 10 ML SYR IV SCH ×2 (06:58→17:09)
[2020-09-26 08:00] VITALS: BP 118/54
[2020-09-26] MEDS: ACETAMINOPHEN TAB 650MG DOSE (2X325MG) PO PRN ×2 (08:33→17:18)
[2020-09-26] MEDS: guaiFENesin ER 600 MG TAB PO SCH ×2 (08:33→20:08)
[2020-09-26] MEDS: BRIMONIDINE 0.15% OPHTH SOLN 5 ML OU SCH ×3 (08:33→20:09)
[2020-09-26] MEDS: LACTOBACILLUS ACIDOPHILUS CAP (BACID) PO SCH ×2 (08:34→17:08)
[2020-09-26] MEDS: ASCORBIC ACID 500 MG TAB PO SCH (08:34)
[2020-09-26] MEDS: TORSEMIDE 20 MG TAB PO SCH ×2 (08:34→17:09)
[2020-09-26] MEDS: PANTOPRAZOLE 40MG TAB (PROTONIX) PO SCH ×2 (08:34→20:08)
[2020-09-26] MEDS: ENOXAPARIN 40MG/0.4ML SYRINGE (J1650 PER 10MG) SC SCH (08:34)
[2020-09-26] MEDS: aMILoride 5 MG TAB PO SCH ×2 (08:35→20:08)
[2020-09-26] MEDS: **NOTE PATIENT COMMENT** MISC XX SCH (09:00)
[2020-09-26] MEDS ORDERED: AUGM875T28 PO (10:46)
[2020-09-26] MEDS ORDERED: LOPE-39 PO (10:46)
[2020-09-26] MEDS ORDERED: DOXY-350 PO (10:46)
[2020-09-26] MEDS ORDERED: FERR1TAB8 PO (10:46)
[2020-09-26] MEDS ORDERED: TORS20TA2 PO (10:46)
[2020-09-26 11:25] LABS: HEMATOCRIT 27.3 % (36.0-47.0); HEMOGLOBIN 8.2 g/dl (12.0-15.5); MEAN CORPUSCULAR VOLUME 96.5 fl (80.0-96.0); PLATELET COUNT, AUTOMATED 265 10^3/uL (150-450); RED BLOOD COUNT 2.83 10^6/uL (4.00-5.40); WHITE BLOOD COUNT 8.8 10^3/uL (4.0-10.0)
[2020-09-26 11:49] LABS: CALCIUM LEVEL 8.6 MG/DL (8.8-10.2); CREATININE FOR GFR 2.01 MG/DL (0.55-1.30); GLOMERULAR FILTRATION RATE 31.7 (>45); POTASSIUM SERUM 4.8 MEQ/L (3.5-5.1)
--- NOTE | 2020-09-26 14:55 | IPN ---
NEPOLOGY PROGRESS NOTE DATE: 09/26/2020 SUBJECTIVE: Ms. Cooney is seen this morning on her bedside. She is feeling about the same. Denies any nausea or vomiting. Her chronic dyspnea is unchanged and she remains on 2 liters of oxygen. PHYSICAL EXAMINATION: Temperature 97 degrees Fahrenheit, heart rate 72 per minute, respiratory rate 18 per minute, blood pressure 118/54 mmHg, oxygen saturation 100%. HEAD: Atraumatic. NECK: Supple and jugular venous distention (JVD) not abnormally elevated. HEART SOUNDS: Irregular. LUNGS: Diminished breath sounds at dependent parts. ABDOMEN: Obese and nontender. EXTREMITIES: Without any cyanosis or clubbing. Minimal ankle edema is noticed. NEUROLOGIC: She is awake and alert and answering questions. LABORATORY DATA: Today's labs show WBC 8.8, hemoglobin 8.2, hematocrit 27.3, platelets 265. Sodium 133, potassium 4.8, CO2 38, BUN 47, creatinine 2.01, glucose 191, calcium 8.6. PROBLEMS: 1. Acute on chronic congestive heart failure. Volume status has improved significantly. She is now on oral diuretics with torsemide 40 mg twice a day and she will continue with the same. 2. Acute on chronic kidney disease. Kidney function unchanged for the last three days. Electrolytes are stable at present. 3. Anemia. Patient was given intravenous iron yesterday, which she has tolerated well. Her anemia is stable and will need to be monitored as an outpatient. DISPOSITION: From a renal standpoint, patient can be discharged back to longterm.
--- NOTE | 2020-09-26 15:15 | IPNPDOC ---
Text Note Date of Service The patient was seen on 09/26/20. NOTE Subjective: No any acute events overnight. No fever or chills. Patient compl ains of difficulty sleeping with BiPAP. Patient reported multiple episodes of diarrhea Objective: GENERAL APPEARANCE: NAD HEENT: no scleral icterus, no JVD, EOMI CARDIOVASCULAR: Irregularly irregular LUNGS: Diminished lung sounds bilaterally ABDOMEN: soft & not tender w palpitation, obese MUSCULOSKELETAL: no cyanosis, no swelling INTEGUMENT: no generalized pallor NEUROLOGICAL: cranial nerve function from 2-12 intact intact, follows commands, speech not dysarthric Assessment and plan Patient is 70 years old female with past medical history of CHF with pulmonary hypertension, history of sarcoidosis, ANGELINA/OHS with chronic hypoxemia and hypercarbic respiratory failure, noncompliant with CPAP at home, CKD, paroxysmal atrial fibrillation presented to the hospital with increased shortness of breath and legs swelling. Acute metabolic encephalopathy/acute hypercarbic respiratory failure Most likely secondary to CO2 narcosis secondary to obstructive sleep apnea Resolved Continue BiPAP Hepatic encephalopathy Ammonia trended down Resolved Acute diastolic CHF Torsemide by mouth Echo showed Restrictive LV diastolic filling pattern (grade 3 or 4 left ventricular (LV) diastolic dysfunction). Severe left atrial dilatation. Suggestive of severe elevation of estimated right ventricular systolic pressure (at least 77 mmHg). Ejection fraction around 70%. Hospital acquired pneumonia CT chest demonstrated multiple nodules. Patient has a history of sarcoidosis Patient received cefepime and doxycycline. I switched today to Augmentin and doxycycline by mouth AFB in sputum negative Await fungal markers Type 2 diabetes Insulin sliding scale Diabetes diet Atrial fibrillation Heart rate under control Patient was on full dose Lovenox, but was having epistaxis and large clots Now on DVT ppx of Lovenox Normocytic anemia Most likely secondary to anemia of chronic diseases Iron supplementation Morbid obesity -BMI 55.7 -Complicates care ANGELINA/OHS Continue with CPAP Constipation C. difficile negative Imodium when necessary Patient await placement. Transferred to [facility] Cielo CARPIO I+O Cielo CARPIO I+O Laboratory Tests 09/26/20 10:53 Vital Signs Date Time Temp Pulse Resp B/P (MAP) Pulse Ox O2 Delivery O2 Flow Rate FiO2 09/26/20 08:30 2.0 09/26/20 08:00 97.0 73 18 118/54 (75) 100 Room Air 09/24/20 00:26 30 I&O- Last 24 Hours up to 6 AM 09/26/20 06:00 Intake Total 690 ml Output Total 1950 ml Balance -1260 ml WILFREDO MELO DO Sep 26, 2020 15:15
[2020-09-26] MEDS: LOPERAMIDE 2 MG CAPLET PO PRN ×2 (15:56→17:37)
[2020-09-26 16:00] VITALS: BP 127/63
[2020-09-26 20:00] VITALS: BP 126/57
[2020-09-26] MEDS: LIDOCAINE 5% (LIDODERM) PATCH TD SCH (20:07)
[2020-09-26] MEDS: AUGMENTIN 500 MG TAB PO SCH (20:07)
[2020-09-26] MEDS: DOXYCYCLINE HYCLATE 100MG TABLET PO SCH (20:08)
[2020-09-26] MEDS ORDERED: AUGMENTIN 875 MG TAB PO SCH (21:00)
[2020-09-27] MEDS: SODIUM CHLORIDE NASAL 0.65% SPRAY BTL (OCEAN) SCH ×7 (00:21→23:05)
[2020-09-27] MEDS: SODIUM CHLORIDE 0.9% INJ 10 ML SYR IV SCH ×2 (05:01→17:17)
[2020-09-27 08:00] VITALS: BP 140/65
[2020-09-27] MEDS: ENOXAPARIN 40MG/0.4ML SYRINGE (J1650 PER 10MG) SC SCH (08:39)
[2020-09-27] MEDS: ASCORBIC ACID 500 MG TAB PO SCH (08:40)
[2020-09-27] MEDS: aMILoride 5 MG TAB PO SCH ×2 (08:40→20:18)
[2020-09-27] MEDS: LACTOBACILLUS ACIDOPHILUS CAP (BACID) PO SCH ×2 (08:40→17:17)
[2020-09-27] MEDS: PANTOPRAZOLE 40MG TAB (PROTONIX) PO SCH ×2 (08:40→20:18)
[2020-09-27] MEDS: guaiFENesin ER 600 MG TAB PO SCH ×2 (08:41→20:18)
[2020-09-27] MEDS: AUGMENTIN 500 MG TAB PO SCH ×2 (08:41→20:18)
[2020-09-27] MEDS: DOXYCYCLINE HYCLATE 100MG TABLET PO SCH ×2 (08:41→20:18)
[2020-09-27] MEDS: TORSEMIDE 20 MG TAB PO SCH ×2 (08:41→17:16)
[2020-09-27] MEDS: BRIMONIDINE 0.15% OPHTH SOLN 5 ML OU SCH ×3 (08:42→20:17)
[2020-09-27] MEDS: **NOTE PATIENT COMMENT** MISC XX SCH (09:05)
[2020-09-27 12:00] VITALS: BP 142/68
[2020-09-27] MEDS: ACETAMINOPHEN TAB 650MG DOSE (2X325MG) PO PRN (15:47)
[2020-09-27 20:00] VITALS: BP 138/63
[2020-09-27] MEDS: LIDOCAINE 5% (LIDODERM) PATCH TD SCH (20:18)
[2020-09-28] MEDS: SODIUM CHLORIDE NASAL 0.65% SPRAY BTL (OCEAN) SCH ×2 (04:00→08:02)
[2020-09-28] MEDS: SODIUM CHLORIDE 0.9% INJ 10 ML SYR IV SCH (05:23)
[2020-09-28 08:00] VITALS: BP 138/65
[2020-09-28] MEDS: AUGMENTIN 500 MG TAB PO SCH (08:05)
[2020-09-28] MEDS: DOXYCYCLINE HYCLATE 100MG TABLET PO SCH (08:05)
[2020-09-28] MEDS: aMILoride 5 MG TAB PO SCH (08:05)
[2020-09-28] MEDS: TORSEMIDE 20 MG TAB PO SCH (08:05)
[2020-09-28] MEDS: guaiFENesin ER 600 MG TAB PO SCH (08:05)
[2020-09-28] MEDS: ASCORBIC ACID 500 MG TAB PO SCH (08:05)
[2020-09-28] MEDS: LACTOBACILLUS ACIDOPHILUS CAP (BACID) PO SCH (08:05)
[2020-09-28] MEDS: PANTOPRAZOLE 40MG TAB (PROTONIX) PO SCH (08:06)
[2020-09-28] MEDS: BRIMONIDINE 0.15% OPHTH SOLN 5 ML OU SCH (08:06)
[2020-09-28] MEDS: ENOXAPARIN 40MG/0.4ML SYRINGE (J1650 PER 10MG) SC SCH (08:06)
[2020-09-28] MEDS: **NOTE PATIENT COMMENT** MISC XX SCH (08:06)
[2020-09-28] MEDS: ACETAMINOPHEN TAB 650MG DOSE (2X325MG) PO PRN (08:06)
[2020-09-28] MEDS ORDERED: AUGM875T28 PO (10:53)
--- NOTE | 2020-09-28 17:01 | DS.PDOC ---
Discharge Summary General Date of Admission Sep 14, 2020 at 17:56 Date of Discharge 09/28/20 Discharge Summary PROCEDURES PERFORMED DURING STAY: [None]. ADMITTING DIAGNOSES: Acute metabolic encephalopathy/acute hypercarbic respiratory failure Hospital acquired pneumonia Acute diastolic CHF Hepatic encephalopathy Type 2 diabetes Normocytic anemia Morbid obesity ANGELINA/OHS Atrial fibrillation Constipation DISCHARGE DIAGNOSES: Acute metabolic encephalopathy/acute hypercarbic respiratory failure Hospital acquired pneumonia Acute diastolic CHF Hepatic encephalopathy Type 2 diabetes Normocytic anemia Morbid obesity ANGELINA/OHS Atrial fibrillation Constipation COMPLICATIONS/CHIEF COMPLAINT: Hyperkalemia,Metabolic Encephalopathy. HISTORY OF PRESENT ILLNESS:Patient is 70 years old female with past medical history of CHF with pulmonary hypertension, history of sarcoidosis, ANGELINA/OHS with chronic hypoxemia and hypercarbic respiratory failure, noncompliant with CPAP at home, CKD, paroxysmal atrial fibrillation presented to the hospital with increased shortness of breath and legs swelling. HOSPITAL COURSE: During hospital stay the following issue addressed Acute metabolic encephalopathy/acute hypercarbic respiratory failure Most likely secondary to CO2 narcosis secondary to obstructive sleep apnea Resolved Continue BiPAP Hepatic encephalopathy Ammonia trended down Resolved Acute diastolic CHF Torsemide by mouth Echo showed Restrictive LV diastolic filling pattern (grade 3 or 4 left ventricular (LV) diastolic dysfunction). Severe left atrial dilatation. Suggestive of severe elevation of estimated right ventricular systolic pressure (at least 77 mmHg). Ejection fraction around 70%. Hospital acquired pneumonia CT chest demonstrated multiple nodules. Patient has a history of sarcoidosis Patient received cefepime and doxycycline. I switched today to Augmentin and doxycycline by mouth AFB in sputum negative Await fungal markers Type 2 diabetes Insulin sliding scale Diabetes diet Atrial fibrillation Heart rate under control Patient was on full dose Lovenox, but was having epistaxis and large clots Normocytic anemia Most likely secondary to anemia of chronic diseases Iron supplementation Morbid obesity -BMI 55.7 -Complicates care ANGELINA/OHS Continue with CPAP Constipation C. difficile negative Imodium when necessary DISCHARGE MEDICATIONS: Please see below. ALLERGIES: Please see below. PHYSICAL EXAMINATION ON DISCHARGE: VITAL SIGNS: Please see below. GENERAL APPEARANCE: NAD HEENT: no scleral icterus, no JVD, EOMI CARDIOVASCULAR: Irregularly irregular LUNGS: Diminished lung sounds bilaterally ABDOMEN: soft & not tender w palpitation, obese MUSCULOSKELETAL: no cyanosis, no swelling INTEGUMENT: no generalized pallor NEUROLOGICAL: cranial nerve function from 2-12 intact intact, follows commands, speech not dysarthric LABORATORY DATA: Please see below. IMAGING: See above PROGNOSIS: Fair ACTIVITY: [As tolerated]. DIET: Cardiac DISPOSITION: [facility]. ITEMS TO FOLLOWUP ON ON OUTPATIENT: Follow-up with etl database developer, PCP DISCHARGE CONDITION: [Stable]. TIME SPENT ON DISCHARGE:40 minutes. Vital Signs/I&Os Vital Signs Date Time Temp Pulse Resp B/P (MAP) Pulse Ox O2 Delivery O2 Flow Rate FiO2 09/28/20 08:00 98.2 81 20 138/65 (89) 100 Nasal Cannula 2.0 09/24/20 00:26 30 I&O- Last 24 Hours up to 6 AM 09/28/20 06:00 Intake Total 1422 ml Output Total 2950 ml Balance -1528 ml Microbiology Microbiology 09/22/20 Acid Fast Stain - Final, Resulted 09/22/20 Mycobacterial Culture, Resulted Pending 09/22/20 Blood Culture - Final, Complete NO GROWTH AFTER 5 DAYS 09/22/20 Blood Culture - Final, Complete NO GROWTH AFTER 5 DAYS 09/18/20 Urine Culture - Final, Complete Escherichia Coli Enterococcus Faecalis Staphylococcus Warneri Discharge Medications Scheduled Amoxicillin/Potassium Clav (Augmentin 875-125 Tablet) 1 Each Tablet, 1 TAB PO BID Apixaban (Eliquis) 2.5 Mg Tablet, 2.5 MG PO BID, (Reported) Ascorbic Acid (Vitamin C) 500 Mg Capsule, 500 MG PO DAILY, (Reported) Aspirin (Aspirin EC) 81 Mg Tablet.dr, 81 MG PO DAILY, (Reported) Bimatoprost (Lumigan) 0.01% 2.5ML Drops, 1 DROP OU DAILY, (Reported) Brimonidine Tartrate (Brimonidine Tartrate) 100 Drop/5 Ml Soln, 1 DROP OU TID, (Reported) Calcitriol (Rocaltrol) 0.25 Mcg Capsule, 0.25 MCG PO DAILY, (Reported) Denosumab Injection (Prolia) 60 Mg/1 Ml Syringe, 60 MG SC ASDIRECTED, (Reported) EVERY 6 MONTHS DUE 08/21/2020 Diclofenac Sodium (Voltaren) 100 Gm Gel..gram., 2 GRAMS TOP BID, (Reported) wrists,neck and shoulders Diclofenac Sodium (Voltaren) 100 Gm Gel..gram., 4 GRAMS TOP BID, (Reported) KNEES Docusate Sodium (Colace) 100 Mg Capsule, 100 MG PO DAILY, (Reported) Doxycycline Monohydrate (Doxycycline) 100 Mg Capsule, 1 CAP PO BID Dulaglutide (Trulicity) 0.75 Mg/0.5 Ml Pen.injctr, 0.75 MG SC QWEEK, (Reported) EVERY THURSDAY Empagliflozin (Jardiance) 10 Mg Tablet, 10 MG PO DAILY, (Reported) Eyelid Cleanser Combination 5 (Ocusoft Lid Scrub) 1 Each Med..pad, 1 EACH TOP BID, (Reported) BOTH EYELIDS Ferrous Sulfate (Ferrous Sulfate) 325 Mg Tablet, 325 MG PO DAILY Glycerin/Propylene Glycol (Artificial Tears Drops) 15 Ml Drops, 1 DROP OU BID, (Reported) Insulin Glargine (Lantus) 100 Unit/1 Ml Vial, 25 UNITS SC DAILY, (Reported) Levothyroxine Sodium (Levothyroxine Sodium) 137 Mcg Tablet, 137 MCG PO QAM, (Reported) Metoprolol Tartrate (Metoprolol Tartrate) 50 Mg Tablet, 50 MG PO BID, (Reported) Pantoprazole Sodium (Pantoprazole Sodium) 40 Mg Tablet.dr, 40 MG PO BID, (Reported) Polyethylene Glycol 3350 (Miralax) 1 Pow Pow, 17 GM PO DAILY, (Reported) Psyllium Husk (Psyllium Husk) 1 Gm Powder, 1 PKT PO QHS, (Reported) Quetiapine Fumarate (Quetiapine Fumarate) 50 Mg Tablet, 50 MG PO DAILY, (Reported) Rosuvastatin Calcium (Rosuvastatin Calcium) 20 Mg Tab, 20 MG PO QHS, (Reported) Sennosides (Senokot) 8.6 Mg Tablet, 1 TAB PO DAILY, (Reported) Sodium Chloride (Saline Nasal [place]) 44 Ml [place], 2 SPRAY NARES QHS, (Reported) Sucralfate (Sucralfate) 1 Gm/10 Ml Oral.susp, 1 GM PO ACHS, (Reported) Torsemide (Torsemide) 20 Mg Tablet, 40 MG PO BID@09,17 Umeclidinium Brm/Vilanterol Tr (Anoro Ellipta 62.5-25 Mcg INH) 1 Each Blst.w.dev, 1 PUFF PO DAILY, (Reported) Scheduled PRN Acetaminophen (Acetaminophen ER) 650 Mg Tablet.er, 650 MG PO Q8H PRN for PAIN, (Reported) Bisacodyl (Bisacodyl) 10 Mg Sup, 10 MG CA DAILY PRN for CONSTIPATION, (Reported) Glucagon,Human Recombinant (Glucagon Emergency Kit) 1 Mg Kit, 1 MG IM ASDIRECTED PRN for LOW BLOOD SUGAR, (Reported) Hydrocodone/Acetaminophen (Hydrocodone-Acetamin 5-325 mg) 1 Each Tablet, 1 TAB PO BID PRN for PAIN, (Reported) Ipratropium/Albuterol Sulfate (Iprat-Albut 0.5-3(2.5) mg/3 ml) 3 Ml Ampul.neb, 1 VIAL NEB Q6H PRN for SHORTNESS OF BREATH, (Reported) Loperamide HCl (Imodium A-D) 2 Mg Capsule, 2 MG PO DAILY PRN for diarrhea Milk Of Magnesia (Milk of Magnesia) 2,400 Mg/10 Ml Oral.susp, 10 ML PO DAILY PRN for CONSTIPATION, (Reported) Phenol (Chloraseptic) 20 Ml [place], 1 SPRAY PO Q4H PRN for SORE THROAT, (Reported) Sodium Chloride (Hawkins) 104 Ml [place], 1 SPRAY NA Q4H PRN for NASAL DRYNESS, (Reported) EACH NOSTRIL Sodium Phosphate,Frontier-Dibasic (Enema Ready To Use) 1 Debby Debby, 1 DEBBY CA DAILY PRN for CONSTIPATION, (Reported) guaiFENesin (Cough Syrup) 100 Mg/5 Ml Liquid, 5 ML PO Q4H PRN for COUGH, (Reported) Allergies Coded Allergies: Sulfa (Sulfonamide Antibiotics) (Verified Allergy, Unknown, 06/30/18) atorvastatin (Verified Allergy, Unknown, 06/30/18) baclofen (Verified Allergy, Unknown, 06/30/18) clindamycin (Verified Allergy, Unknown, 06/30/18) duloxetine (Verified Allergy, Unknown, 06/30/18) levetiracetam (Verified Allergy, Unknown, 06/30/18) lisinopril (Verified Allergy, Unknown, 06/30/18) topiramate (Verified Allergy, Unknown, 06/30/18) tramadol (Verified Allergy, Unknown, 06/30/18) WILFREDO MELO DO Sep 28, 2020 17:01
[2020-09-30 02:06] LABS: ANGIOTENSIN 1 CONVERTING ENZYM 37 U/L (14-82); ASPERGILLUS GALACTOMANNAN AG 0.07 Index (0.00-0.49); FUNGITELL, SERUM <31 pg/mL (<80)
== END 2020-09-28 11:11 | DRG 441 ==
LOC: M ED 12:25 → M ED INP 17:56 → ENRESERV 19:14 → M MSPAV 20:18 → M PCU 09-15 12:52 → M ICU 09-17 16:33 → M PCU 09-19 21:30
PROVIDERS: ADMIT General Practice; ATTEND Internal Medicine
PROC: 05H633Z Insertion of Infusion Device into Left Subclavian Vein, Percutaneous Approach (ICD-10-PCS; principal; 2020-09-14)
PROC: 02HV33Z Insertion of Infusion Device into Superior Vena Cava, Percutaneous Approach (ICD-10-PCS; 2020-09-19)
DX: K72.00 Acute and subacute hepatic failure without coma (principal); G93.41 Metabolic encephalopathy; J96.21 Acute and chronic respiratory failure with hypoxia; J96.22 Acute and chronic respiratory failure with hypercapnia; J18.9 Pneumonia, unspecified organism; N17.9 Acute kidney failure, unspecified; I50.32 Chronic diastolic (congestive) heart failure; E66.2 Morbid (severe) obesity with alveolar hypoventilation; I13.0 Hypertensive heart and chronic kidney disease with heart failure and stage 1 through stage 4 chronic kidney disease, or unspecified chronic kidney disease; Z68.43 Body mass index [BMI] 50.0-59.9, adult; I69.354 Hemiplegia and hemiparesis following cerebral infarction affecting left non-dominant side; D68.32 Hemorrhagic disorder due to extrinsic circulating anticoagulants; D62 Acute posthemorrhagic anemia; N25.81 Secondary hyperparathyroidism of renal origin; E72.20 Disorder of urea cycle metabolism, unspecified; E87.4 Mixed disorder of acid-base balance; N39.0 Urinary tract infection, site not specified; N18.30 Chronic kidney disease, stage 3 unspecified; I48.0 Paroxysmal atrial fibrillation; K21.9 Gastro-esophageal reflux disease without esophagitis; J44.9 Chronic obstructive pulmonary disease, unspecified; I27.20 Pulmonary hypertension, unspecified; I25.10 Atherosclerotic heart disease of native coronary artery without angina pectoris; R04.0 Epistaxis; E11.22 Type 2 diabetes mellitus with diabetic chronic kidney disease; H40.9 Unspecified glaucoma; E03.9 Hypothyroidism, unspecified; M81.0 Age-related osteoporosis without current pathological fracture; E87.5 Hyperkalemia; D86.9 Sarcoidosis, unspecified; B96.20 Unspecified Escherichia coli [E. coli] as the cause of diseases classified elsewhere; E83.42 Hypomagnesemia; E87.6 Hypokalemia; D63.1 Anemia in chronic kidney disease; Z99.3 Dependence on wheelchair; Z20.822 Contact with and (suspected) exposure to COVID-19; Z99.81 Dependence on supplemental oxygen; Z88.2 Allergy status to sulfonamides; Z88.1 Allergy status to other antibiotic agents; Z88.8 Allergy status to other drugs, medicaments and biological substances; Z88.5 Allergy status to narcotic agent; Z79.01 Long term (current) use of anticoagulants; Z85.3 Personal history of malignant neoplasm of breast; Z79.82 Long term (current) use of aspirin; Z79.899 Other long term (current) drug therapy; Z79.4 Long term (current) use of insulin; Z79.891 Long term (current) use of opiate analgesic; Z91.11 Patient's noncompliance with dietary regimen; Y95 Nosocomial condition

== ENCOUNTER → 2020-09-14 | Outpatient (REF) | payer MEDICARE, MEDICAID ==
[~2020-09-14] MED LIST changes: +AUGM875T28 PO; +DOXY-350 PO; +LOPE-39 PO
== END ==
LOC: SKLAB2 11:42
DX: E87.5 Hyperkalemia (principal); Z53.8 Procedure and treatment not carried out for other reasons

== ENCOUNTER → 2020-10-01 | Outpatient (REF) | payer MEDICARE, MEDICAID ==
[~2020-10-01] MED LIST changes: +AUGM875T28 PO; +DOXY-350 PO; +ELIQ2.5T PO; +LOPE-39 PO; +PANT-23 PO; +ROCA0.25 PO; +SUCR1ORA2 PO
[2020-10-01 14:15] LABS: HEMATOCRIT 32.5 % (36.0-47.0); HEMOGLOBIN 9.6 g/dl (12.0-15.5); MEAN CORPUSCULAR HEMOGLOBIN 29.5 pg (27.0-33.0); MEAN CORPUSCULAR HGB CONC 29.5 g/dl (32.0-36.5); PLATELET COUNT, AUTOMATED 483 10^3/uL (150-450); RED BLOOD COUNT 3.25 10^6/uL (4.00-5.40); WHITE BLOOD COUNT 6.4 10^3/uL (4.0-10.0)
[2020-10-01 14:35] LABS: CALCIUM LEVEL 8.3 MG/DL (8.8-10.2); CREATININE FOR GFR 2.59 MG/DL (0.55-1.30); GLOMERULAR FILTRATION RATE 23.6 (>45); POTASSIUM SERUM 5.3 MEQ/L (3.5-5.1)
== END ==
LOC: SKLAB2 08:21
DX: I50.9 Heart failure, unspecified (principal); N18.9 Chronic kidney disease, unspecified

== ENCOUNTER → 2020-10-04 | Outpatient (REF) | payer MEDICARE, MEDICAID ==
[2020-10-04 09:50] LABS: HEMATOCRIT 31.2 % (36.0-47.0); HEMOGLOBIN 9.3 g/dl (12.0-15.5); MEAN CORPUSCULAR HGB CONC 29.8 g/dl (32.0-36.5); MEAN CORPUSCULAR VOLUME 97.2 fl (80.0-96.0); PLATELET COUNT, AUTOMATED 445 10^3/uL (150-450); RED BLOOD COUNT 3.21 10^6/uL (4.00-5.40); WHITE BLOOD COUNT 6.1 10^3/uL (4.0-10.0)
[2020-10-04 10:39] LABS: CALCIUM LEVEL 8.7 MG/DL (8.8-10.2); CREATININE FOR GFR 1.98 MG/DL (0.55-1.30); GLOMERULAR FILTRATION RATE 32.2 (>45); POTASSIUM SERUM 5.1 MEQ/L (3.5-5.1)
== END ==
LOC: SKLAB2 10:45
DX: N18.9 Chronic kidney disease, unspecified (principal); I50.9 Heart failure, unspecified

== ENCOUNTER → 2020-10-09 | Outpatient (REF) | payer MEDICARE, MEDICAID ==
[2020-10-09 14:02] LABS: HEMATOCRIT 32.8 % (36.0-47.0); MEAN CORPUSCULAR HEMOGLOBIN 29.9 pg (27.0-33.0); MEAN CORPUSCULAR HGB CONC 30.5 g/dl (32.0-36.5); MEAN CORPUSCULAR VOLUME 98.2 fl (80.0-96.0); PLATELET COUNT, AUTOMATED 304 10^3/uL (150-450); RED BLOOD COUNT 3.34 10^6/uL (4.00-5.40); WHITE BLOOD COUNT 6.2 10^3/uL (4.0-10.0)
[2020-10-09 14:32] LABS: CALCIUM LEVEL 8.8 MG/DL (8.8-10.2); CREATININE FOR GFR 1.55 MG/DL (0.55-1.30); GLOMERULAR FILTRATION RATE 42.8 (>45); POTASSIUM SERUM 4.7 MEQ/L (3.5-5.1)
== END ==
LOC: SKLAB2 11:40
DX: I50.9 Heart failure, unspecified (principal); N18.9 Chronic kidney disease, unspecified

== ENCOUNTER → 2020-10-12 | Outpatient (REF) | payer MEDICARE, MEDICAID ==
[2020-10-12 10:02] LABS: HEMATOCRIT 30.4 % (36.0-47.0); HEMOGLOBIN 9.2 g/dl (12.0-15.5); MEAN CORPUSCULAR HEMOGLOBIN 29.6 pg (27.0-33.0); MEAN CORPUSCULAR HGB CONC 30.3 g/dl (32.0-36.5); MEAN CORPUSCULAR VOLUME 97.7 fl (80.0-96.0); PLATELET COUNT, AUTOMATED 200 10^3/uL (150-450); RED BLOOD COUNT 3.11 10^6/uL (4.00-5.40); WHITE BLOOD COUNT 5.5 10^3/uL (4.0-10.0)
[2020-10-12 10:26] LABS: CREATININE FOR GFR 1.7 MG/DL (0.55-1.30); GLOMERULAR FILTRATION RATE 38.4 (>45); POTASSIUM SERUM 4.5 MEQ/L (3.5-5.1)
== END ==
LOC: SKLAB2 12:39
DX: I50.9 Heart failure, unspecified (principal)

== ENCOUNTER → 2020-10-15 | Outpatient (REF) | payer MEDICARE, MEDICAID ==
--- NOTE | 2020-10-15 14:02 | REP ---
INDICATION: RULE EXTRA LIQUID AROUND HEART. COMPARISON: Multiple the latest 09/19/2020 TECHNIQUE: AP and lateral FINDINGS: There is cardiomegaly accentuated by technique status quo. Increased interstitial markings are again seen status quo. Mild airspace opacities cannot be ruled out. Previously noted central venous catheter has been removed. There is no change in the osseous structures. The lateral view is nondiagnostic. IMPRESSION: No significant change from the prior exam. Findings and limitations as described above. PA and lateral views of the chest recommended. This examination cannot rule out a pericardial effusion. <Electronically signed by Frantz Montenegro > 10/15/20 [id number]
== END ==
LOC: SKLAB2 08:33
DX: I51.7 Cardiomegaly (principal)

== ENCOUNTER → 2020-10-16 | Outpatient (REF) | payer MEDICARE, MEDICAID ==
[2020-10-16 10:27] LABS: ALBUMIN 2.9 GM/DL (3.2-5.2); BILIRUBIN,TOTAL 0.5 MG/DL (0.2-1.0); CALCIUM LEVEL 8.8 MG/DL (8.8-10.2); CREATININE FOR GFR 1.71 MG/DL (0.55-1.30); GLOMERULAR FILTRATION RATE 38.2 (>45); HEMOGLOBIN A1c 6.5 %; PERCENT SATURATION 23.8 % (13.2-45.0); TOTAL PROTEIN 7.4 GM/DL (6.4-8.2)
== END ==
LOC: SKLAB2 12:40
DX: I50.9 Heart failure, unspecified (principal); Z79.899 Other long term (current) drug therapy

== ENCOUNTER → 2020-10-19 | Outpatient (REF) | payer MEDICARE, MEDICAID ==
[2020-10-19 08:14] LABS: HEMATOCRIT 29.2 % (36.0-47.0); HEMOGLOBIN 8.8 g/dl (12.0-15.5); MEAN CORPUSCULAR HEMOGLOBIN 28.9 pg (27.0-33.0); MEAN CORPUSCULAR HGB CONC 30.1 g/dl (32.0-36.5); MEAN CORPUSCULAR VOLUME 95.7 fl (80.0-96.0); PLATELET COUNT, AUTOMATED 189 10^3/uL (150-450); RED BLOOD COUNT 3.05 10^6/uL (4.00-5.40); WHITE BLOOD COUNT 5.2 10^3/uL (4.0-10.0)
[2020-10-19 08:38] LABS: CREATININE FOR GFR 1.78 MG/DL (0.55-1.30); GLOMERULAR FILTRATION RATE 36.4 (>45); POTASSIUM SERUM 3.6 MEQ/L (3.5-5.1)
== END ==
LOC: SKLAB2 12:41
DX: I50.9 Heart failure, unspecified (principal); N18.9 Chronic kidney disease, unspecified

== ENCOUNTER → 2020-10-23 | Outpatient (REF) | payer MEDICARE, MEDICAID ==
[2020-10-23 10:32] LABS: HEMATOCRIT 26.6 % (36.0-47.0); HEMOGLOBIN 8.3 g/dl (12.0-15.5); MEAN CORPUSCULAR HGB CONC 31.2 g/dl (32.0-36.5); PLATELET COUNT, AUTOMATED 188 10^3/uL (150-450); RED BLOOD COUNT 2.77 10^6/uL (4.00-5.40); WHITE BLOOD COUNT 7.5 10^3/uL (4.0-10.0)
[2020-10-23 10:58] LABS: CALCIUM LEVEL 8.9 MG/DL (8.8-10.2); CREATININE FOR GFR 1.6 MG/DL (0.55-1.30); GLOMERULAR FILTRATION RATE 41.2 (>45); POTASSIUM SERUM 3.6 MEQ/L (3.5-5.1)
== END ==
LOC: SKLAB2 12:02
DX: I50.9 Heart failure, unspecified (principal)

== ENCOUNTER → 2020-10-26 | Outpatient (REF) | payer MEDICARE, MEDICAID ==
[2020-10-26 09:50] LABS: BASO % 0.3 % (0.0-1.0); EOS # 0.9 10^3/uL (0.0-0.5); EOS % 13.9 % (0.0-3.0); HEMATOCRIT 28.5 % (36.0-47.0); HEMOGLOBIN 8.6 g/dl (12.0-15.5); LYMPH % 14.8 % (24.0-44.0); MEAN CORPUSCULAR HEMOGLOBIN 29.3 pg (27.0-33.0); MEAN CORPUSCULAR HGB CONC 30.2 g/dl (32.0-36.5); MEAN CORPUSCULAR VOLUME 96.9 fl (80.0-96.0); MONO # 0.9 10^3/uL (0.0-0.8); MONO % 12.6 % (2.0-8.0); NEUTROPHILS # 3.9 10^3/uL (1.5-8.5); NEUTROPHILS % 57.8 % (36.0-66.0); PLATELET COUNT, AUTOMATED 194 10^3/uL (150-450); RED BLOOD COUNT 2.94 10^6/uL (4.00-5.40); WHITE BLOOD COUNT 6.8 10^3/uL (4.0-10.0)
[2020-10-26 10:21] LABS: CALCIUM LEVEL 8.7 MG/DL (8.8-10.2); CREATININE FOR GFR 1.43 MG/DL (0.55-1.30); GLOMERULAR FILTRATION RATE 46.9 (>45); PHOSPHORUS LEVEL 3.2 MG/DL (2.5-4.9); POTASSIUM SERUM 4.1 MEQ/L (3.5-5.1)
== END ==
LOC: SKLAB2 12:03
DX: I50.9 Heart failure, unspecified (principal)

== ENCOUNTER → 2020-10-30 | Outpatient (REF) | payer MEDICARE, MEDICAID ==
[2020-10-30 07:53] LABS: HEMATOCRIT 28.2 % (36.0-47.0); HEMOGLOBIN 8.5 g/dl (12.0-15.5); MEAN CORPUSCULAR HEMOGLOBIN 29.6 pg (27.0-33.0); MEAN CORPUSCULAR HGB CONC 30.1 g/dl (32.0-36.5); MEAN CORPUSCULAR VOLUME 98.3 fl (80.0-96.0); PLATELET COUNT, AUTOMATED 206 10^3/uL (150-450); RED BLOOD COUNT 2.87 10^6/uL (4.00-5.40); WHITE BLOOD COUNT 6.2 10^3/uL (4.0-10.0)
[2020-10-30 08:25] LABS: CALCIUM LEVEL 8.5 MG/DL (8.8-10.2); CREATININE FOR GFR 1.49 MG/DL (0.55-1.30); GLOMERULAR FILTRATION RATE 44.8 (>45); POTASSIUM SERUM 3.9 MEQ/L (3.5-5.1)
== END ==
LOC: SKLAB2 12:03
DX: I50.9 Heart failure, unspecified (principal)

== ENCOUNTER → 2020-11-02 | Outpatient (REF) | payer MEDICARE, MEDICAID ==
[2020-11-02 08:34] LABS: HEMATOCRIT 28.6 % (36.0-47.0); HEMOGLOBIN 8.7 g/dl (12.0-15.5); MEAN CORPUSCULAR HEMOGLOBIN 30.1 pg (27.0-33.0); MEAN CORPUSCULAR HGB CONC 30.4 g/dl (32.0-36.5); PLATELET COUNT, AUTOMATED 207 10^3/uL (150-450); RED BLOOD COUNT 2.89 10^6/uL (4.00-5.40); WHITE BLOOD COUNT 6.3 10^3/uL (4.0-10.0)
[2020-11-02 08:50] LABS: CALCIUM LEVEL 8.8 MG/DL (8.8-10.2); CREATININE FOR GFR 1.25 MG/DL (0.55-1.30); GLOMERULAR FILTRATION RATE 54.8 (>45); POTASSIUM SERUM 3.9 MEQ/L (3.5-5.1)
== END ==
LOC: SKLAB2 12:04
DX: I50.9 Heart failure, unspecified (principal)

== ENCOUNTER → 2020-11-07 | Outpatient (REF) | payer MEDICARE, MEDICAID ==
[~2020-11-07] MED LIST changes: -QUET50TA3 PO; +QUET50TA4 PO
[2020-11-07 08:28] LABS: HEMATOCRIT 29.2 % (36.0-47.0); HEMOGLOBIN 8.7 g/dl (12.0-15.5); MEAN CORPUSCULAR HEMOGLOBIN 29.6 pg (27.0-33.0); MEAN CORPUSCULAR HGB CONC 29.8 g/dl (32.0-36.5); MEAN CORPUSCULAR VOLUME 99.3 fl (80.0-96.0); PLATELET COUNT, AUTOMATED 214 10^3/uL (150-450); RED BLOOD COUNT 2.94 10^6/uL (4.00-5.40); WHITE BLOOD COUNT 5.5 10^3/uL (4.0-10.0)
[2020-11-07 08:59] LABS: ALBUMIN 3.2 GM/DL (3.2-5.2); BILIRUBIN,TOTAL 0.5 MG/DL (0.2-1.0); CALCIUM LEVEL 9.3 MG/DL (8.8-10.2); CREATININE FOR GFR 1.27 MG/DL (0.55-1.30); GLOMERULAR FILTRATION RATE 53.8 (>45); POTASSIUM SERUM 3.9 MEQ/L (3.5-5.1); TOTAL PROTEIN 7.9 GM/DL (6.4-8.2)
== END ==
LOC: SKLAB2 11-06 07:00
DX: N18.9 Chronic kidney disease, unspecified (principal); I50.9 Heart failure, unspecified

== ENCOUNTER → 2020-11-09 | Outpatient (REF) | payer MEDICARE, MEDICAID ==
[2020-11-09 14:12] LABS: HEMOGLOBIN 9.6 g/dl (12.0-15.5); MEAN CORPUSCULAR HEMOGLOBIN 30.3 pg (27.0-33.0); MEAN CORPUSCULAR VOLUME 97.8 fl (80.0-96.0); PLATELET COUNT, AUTOMATED 253 10^3/uL (150-450); RED BLOOD COUNT 3.17 10^6/uL (4.00-5.40); WHITE BLOOD COUNT 5.2 10^3/uL (4.0-10.0)
[2020-11-09 14:32] LABS: CALCIUM LEVEL 8.8 MG/DL (8.8-10.2); CREATININE FOR GFR 1.42 MG/DL (0.55-1.30); GLOMERULAR FILTRATION RATE 47.3 (>45); POTASSIUM SERUM 3.9 MEQ/L (3.5-5.1)
== END ==
LOC: SKLAB2 07:00
DX: N18.9 Chronic kidney disease, unspecified (principal); I50.9 Heart failure, unspecified

== ENCOUNTER → 2020-11-13 | Outpatient (REF) | payer MEDICARE, MEDICAID ==
[2020-11-13 09:42] LABS: HEMATOCRIT 31.6 % (36.0-47.0); HEMOGLOBIN 9.4 g/dl (12.0-15.5); MEAN CORPUSCULAR HEMOGLOBIN 29.6 pg (27.0-33.0); MEAN CORPUSCULAR HGB CONC 29.7 g/dl (32.0-36.5); MEAN CORPUSCULAR VOLUME 99.4 fl (80.0-96.0); PLATELET COUNT, AUTOMATED 245 10^3/uL (150-450); RED BLOOD COUNT 3.18 10^6/uL (4.00-5.40); WHITE BLOOD COUNT 5.3 10^3/uL (4.0-10.0)
[2020-11-13 10:04] LABS: CALCIUM LEVEL 9.9 MG/DL (8.8-10.2); CREATININE FOR GFR 1.36 MG/DL (0.55-1.30); GLOMERULAR FILTRATION RATE 49.7 (>45); POTASSIUM SERUM 3.7 MEQ/L (3.5-5.1)
== END ==
LOC: SKLAB2 07:00
PROVIDERS: ATTEND Neuromusculoskeletal Medicine & OMM
DX: N18.9 Chronic kidney disease, unspecified (principal); I50.9 Heart failure, unspecified

== ENCOUNTER → 2020-11-16 | Outpatient (REF) | payer MEDICARE, MEDICAID ==
[2020-11-16 10:55] LABS: HEMATOCRIT 31.6 % (36.0-47.0); HEMOGLOBIN 9.6 g/dl (12.0-15.5); MEAN CORPUSCULAR HEMOGLOBIN 29.6 pg (27.0-33.0); MEAN CORPUSCULAR HGB CONC 30.4 g/dl (32.0-36.5); MEAN CORPUSCULAR VOLUME 97.5 fl (80.0-96.0); PLATELET COUNT, AUTOMATED 246 10^3/uL (150-450); RED BLOOD COUNT 3.24 10^6/uL (4.00-5.40); WHITE BLOOD COUNT 6.2 10^3/uL (4.0-10.0)
[2020-11-16 11:15] LABS: BILIRUBIN,TOTAL 0.4 MG/DL (0.2-1.0); CALCIUM LEVEL 9.6 MG/DL (8.8-10.2); CREATININE FOR GFR 1.23 MG/DL (0.55-1.30); GLOMERULAR FILTRATION RATE 55.8 (>45); PERCENT SATURATION 21.9 % (13.2-45.0); POTASSIUM SERUM 3.7 MEQ/L (3.5-5.1); TOTAL PROTEIN 7.8 GM/DL (6.4-8.2)
[2020-11-16 11:23] LABS: HEMOGLOBIN A1c 6.8 %
== END ==
LOC: SKLAB2 07:00
PROVIDERS: ATTEND Neuromusculoskeletal Medicine & OMM
DX: N18.9 Chronic kidney disease, unspecified (principal); I50.9 Heart failure, unspecified; Z79.899 Other long term (current) drug therapy

== ENCOUNTER → 2020-11-20 | Outpatient (CLI) | payer MEDICARE, MEDICAID ==
--- NOTE | 2020-11-20 16:37 | REP ---
INDICATION: ABN FINDING OF LUNG PT IN CT HOLDING AREA COMPARISON: Multiple TECHNIQUE: Standard helical technique without intravenous contrast. FINDINGS: There is four-chamber cardiac enlargement status quo. There is a small pericardial effusion status quo. There is no pleural effusion. The mediastinum and pulmonary maria guadalupe cannot be effectively evaluated without intravenous contrast. There does appear to be mild mediastinal and possible bilateral hilar adenopathy there is no pleural effusion. There is no change in the imaged upper abdomen or imaged osseous structures. Evaluation of the lung holliday again shows respiratory motion artifact obscuring the detail. There are numerous parenchymal nodules, however, scattered airspace opacities seen previously have significantly improved. IMPRESSION: Improved lung holliday and other findings as described above. Short interval follow-up is recommended. <Electronically signed by Frantz Montenegro > 11/20/20 [id number]
== END ==
LOC: M RAD 13:33
PROVIDERS: ATTEND Internal Medicine Pulmonary Disease
DX: R91.8 Other nonspecific abnormal finding of lung field (principal); N18.9 Chronic kidney disease, unspecified; I50.9 Heart failure, unspecified

== ENCOUNTER → 2020-11-20 | Outpatient (REF) | payer MEDICARE, MEDICAID ==
[2020-11-20 10:30] LABS: HEMOGLOBIN 9.6 g/dl (12.0-15.5); MEAN CORPUSCULAR HEMOGLOBIN 29.9 pg (27.0-33.0); MEAN CORPUSCULAR VOLUME 96.6 fl (80.0-96.0); PLATELET COUNT, AUTOMATED 212 10^3/uL (150-450); RED BLOOD COUNT 3.21 10^6/uL (4.00-5.40); WHITE BLOOD COUNT 7.7 10^3/uL (4.0-10.0)
[2020-11-20 10:42] LABS: CALCIUM LEVEL 9.1 MG/DL (8.8-10.2); CREATININE FOR GFR 1.39 MG/DL (0.55-1.30); GLOMERULAR FILTRATION RATE 48.5 (>45); POTASSIUM SERUM 3.7 MEQ/L (3.5-5.1)
== END ==
LOC: SKLAB2 08:05
PROVIDERS: ATTEND Neuromusculoskeletal Medicine & OMM
DX: N18.9 Chronic kidney disease, unspecified (principal); I50.9 Heart failure, unspecified

== ENCOUNTER → 2020-11-26 | Outpatient (REF) | payer MEDICARE, MEDICAID ==
[2020-11-26 12:35] LABS: BASO % 0.5 % (0.0-1.0); EOS # 0.2 10^3/uL (0.0-0.5); HEMOGLOBIN 9.9 g/dl (12.0-15.5); LYMPH # 0.8 10^3/uL (1.5-5.0); LYMPH % 12.1 % (24.0-44.0); MEAN CORPUSCULAR HEMOGLOBIN 30.3 pg (27.0-33.0); MEAN CORPUSCULAR HGB CONC 30.9 g/dl (32.0-36.5); MEAN CORPUSCULAR VOLUME 97.9 fl (80.0-96.0); MONO # 0.9 10^3/uL (0.0-0.8); MONO % 13.7 % (2.0-8.0); NEUTROPHILS # 4.4 10^3/uL (1.5-8.5); NEUTROPHILS % 70.2 % (36.0-66.0); PLATELET COUNT, AUTOMATED 206 10^3/uL (150-450); RED BLOOD COUNT 3.27 10^6/uL (4.00-5.40); WHITE BLOOD COUNT 6.3 10^3/uL (4.0-10.0)
[2020-11-26 13:03] LABS: ALBUMIN 2.9 GM/DL (3.2-5.2); CALCIUM LEVEL 8.5 MG/DL (8.8-10.2); CREATININE FOR GFR 1.28 MG/DL (0.55-1.30); GLOMERULAR FILTRATION RATE 53.3 (>45); PHOSPHORUS LEVEL 3.8 MG/DL (2.5-4.9); POTASSIUM SERUM 3.9 MEQ/L (3.5-5.1)
== END ==
LOC: SKLAB2 07:00
PROVIDERS: ATTEND Neuromusculoskeletal Medicine & OMM
DX: N18.9 Chronic kidney disease, unspecified (principal); I50.9 Heart failure, unspecified

== ENCOUNTER → 2020-12-04 | Outpatient (REF) | payer MEDICARE, MEDICAID ==
[2020-12-04 09:19] LABS: HEMOGLOBIN 10.5 g/dl (12.0-15.5); MEAN CORPUSCULAR HEMOGLOBIN 29.8 pg (27.0-33.0); MEAN CORPUSCULAR HGB CONC 30.9 g/dl (32.0-36.5); MEAN CORPUSCULAR VOLUME 96.6 fl (80.0-96.0); PLATELET COUNT, AUTOMATED 264 10^3/uL (150-450); RED BLOOD COUNT 3.52 10^6/uL (4.00-5.40)
[2020-12-04 09:36] LABS: CALCIUM LEVEL 9.1 MG/DL (8.8-10.2); CREATININE FOR GFR 1.17 MG/DL (0.55-1.30); GLOMERULAR FILTRATION RATE 59.2 (>45); PHENYTOIN (DILANTIN) 13.1 UG/ML (10.0-20.0); POTASSIUM SERUM 3.7 MEQ/L (3.5-5.1)
== END ==
LOC: SKLAB2 09:14
PROVIDERS: ATTEND Neuromusculoskeletal Medicine & OMM
DX: G40.909 Epilepsy, unspecified, not intractable, without status epilepticus (principal); N18.9 Chronic kidney disease, unspecified; I50.9 Heart failure, unspecified

== ENCOUNTER → 2020-12-11 | Outpatient (REF) | payer MEDICARE, MEDICAID ==
[2020-12-11 10:03] LABS: BASO % 0.6 % (0.0-1.0); EOS # 0.2 10^3/uL (0.0-0.5); EOS % 3.5 % (0.0-3.0); HEMOGLOBIN 10.2 g/dl (12.0-15.5); LYMPH % 15.4 % (24.0-44.0); MEAN CORPUSCULAR HGB CONC 30.9 g/dl (32.0-36.5); MEAN CORPUSCULAR VOLUME 97.1 fl (80.0-96.0); MONO # 0.9 10^3/uL (0.0-0.8); MONO % 13.8 % (2.0-8.0); NEUTROPHILS # 4.3 10^3/uL (1.5-8.5); NEUTROPHILS % 65.9 % (36.0-66.0); PLATELET COUNT, AUTOMATED 230 10^3/uL (150-450); WHITE BLOOD COUNT 6.5 10^3/uL (4.0-10.0)
[2020-12-11 10:34] LABS: ALBUMIN 2.7 GM/DL (3.2-5.2); CALCIUM LEVEL 8.5 MG/DL (8.8-10.2); CREATININE FOR GFR 1.21 MG/DL (0.55-1.30); GLOMERULAR FILTRATION RATE 56.9 (>45); PHOSPHORUS LEVEL 4.1 MG/DL (2.5-4.9); POTASSIUM SERUM 3.7 MEQ/L (3.5-5.1)
== END ==
LOC: SKLAB2 07:00
PROVIDERS: ATTEND Neuromusculoskeletal Medicine & OMM
DX: N18.9 Chronic kidney disease, unspecified (principal); I50.9 Heart failure, unspecified

== ENCOUNTER → 2020-12-18 | Outpatient (REF) | payer MEDICARE, MEDICAID ==
[~2020-12-18] MED LIST changes: -KLOR10TA76 PO; +POTA-136 PO
[2020-12-18 08:57] LABS: HEMATOCRIT 33.4 % (36.0-47.0); HEMOGLOBIN 10.5 g/dl (12.0-15.5); MEAN CORPUSCULAR HEMOGLOBIN 30.3 pg (27.0-33.0); MEAN CORPUSCULAR HGB CONC 31.4 g/dl (32.0-36.5); MEAN CORPUSCULAR VOLUME 96.3 fl (80.0-96.0); PLATELET COUNT, AUTOMATED 246 10^3/uL (150-450); RED BLOOD COUNT 3.47 10^6/uL (4.00-5.40); WHITE BLOOD COUNT 7.2 10^3/uL (4.0-10.0)
[2020-12-18 09:21] LABS: BLOOD UREA NITROGEN 31 MG/DL (7-18); CALCIUM LEVEL 8.8 MG/DL (8.8-10.2); CARBON DIOXIDE LEVEL 31 MEQ/L (21-32); CHLORIDE LEVEL 102 MEQ/L (98-107); CREATININE FOR GFR 1.08 MG/DL (0.55-1.30); GLOMERULAR FILTRATION RATE > 60.0 (>45); GLUCOSE, FASTING 123 MG/DL (70-100); POTASSIUM SERUM 3.7 MEQ/L (3.5-5.1); SODIUM LEVEL 140 MEQ/L (136-145)
== END ==
LOC: SKLAB2 07:00
PROVIDERS: ATTEND Neuromusculoskeletal Medicine & OMM
DX: N18.9 Chronic kidney disease, unspecified (principal); I50.9 Heart failure, unspecified

== ENCOUNTER → 2020-12-25 | Outpatient (REF) | payer MEDICARE, MEDICAID ==
[2020-12-25 09:25] LABS: HEMATOCRIT 32.6 % (36.0-47.0); HEMOGLOBIN 10.2 g/dl (12.0-15.5); MEAN CORPUSCULAR HGB CONC 31.3 g/dl (32.0-36.5); MEAN CORPUSCULAR VOLUME 95.9 fl (80.0-96.0); PLATELET COUNT, AUTOMATED 294 10^3/uL (150-450); WHITE BLOOD COUNT 7.3 10^3/uL (4.0-10.0)
[2020-12-25 09:52] LABS: BLOOD UREA NITROGEN 41 MG/DL (7-18); CALCIUM LEVEL 8.9 MG/DL (8.8-10.2); CARBON DIOXIDE LEVEL 33 MEQ/L (21-32); CHLORIDE LEVEL 100 MEQ/L (98-107); CREATININE FOR GFR 1.05 MG/DL (0.55-1.30); GLOMERULAR FILTRATION RATE > 60.0 (>45); GLUCOSE, FASTING 94 MG/DL (70-100); PHOSPHORUS LEVEL 4.5 MG/DL (2.5-4.9); POTASSIUM SERUM 3.9 MEQ/L (3.5-5.1); SODIUM LEVEL 141 MEQ/L (136-145)
[2020-12-25 10:03] LABS: PTH INTACT 152.1 PG/ML (18.5-88.0); TOTAL 25(OH) VITAMIN D 35.6 NG/ML (30.0-100.0)
== END ==
LOC: SKLAB2 07:00
PROVIDERS: ATTEND Neuromusculoskeletal Medicine & OMM
DX: N18.9 Chronic kidney disease, unspecified (principal); Z79.899 Other long term (current) drug therapy

== ENCOUNTER → 2021-01-01 | Outpatient (REF) | payer MEDICARE, MEDICAID ==
[2021-01-01 09:44] LABS: HEMATOCRIT 32.6 % (36.0-47.0); HEMOGLOBIN 10.4 g/dl (12.0-15.5); MEAN CORPUSCULAR HEMOGLOBIN 29.8 pg (27.0-33.0); MEAN CORPUSCULAR HGB CONC 31.9 g/dl (32.0-36.5); MEAN CORPUSCULAR VOLUME 93.4 fl (80.0-96.0); PLATELET COUNT, AUTOMATED 285 10^3/uL (150-450); RED BLOOD COUNT 3.49 10^6/uL (4.00-5.40); WHITE BLOOD COUNT 7.3 10^3/uL (4.0-10.0)
[2021-01-01 10:09] LABS: BLOOD UREA NITROGEN 38 MG/DL (7-18); CALCIUM LEVEL 9.2 MG/DL (8.8-10.2); CARBON DIOXIDE LEVEL 35 MEQ/L (21-32); CHLORIDE LEVEL 99 MEQ/L (98-107); GLOMERULAR FILTRATION RATE > 60.0 (>45); GLUCOSE, FASTING 153 MG/DL (70-100); POTASSIUM SERUM 3.9 MEQ/L (3.5-5.1); SODIUM LEVEL 138 MEQ/L (136-145)
== END ==
LOC: SKLAB2 08:49
PROVIDERS: ATTEND Neuromusculoskeletal Medicine & OMM
DX: R60.0 Localized edema (principal)

== ENCOUNTER → 2021-01-23 | Outpatient (REF) | payer MEDICARE, MEDICAID | LOC: SKLAB6 07:00 | PROVIDERS: ATTEND Neuromusculoskeletal Medicine & OMM | DX: Z20.822 Contact with and (suspected) exposure to COVID-19 (principal) ==

== ENCOUNTER → 2021-01-24 | Outpatient (REF) | payer MEDICARE, MEDICAID | LOC: SKLAB6 09:08 | PROVIDERS: ATTEND Neuromusculoskeletal Medicine & OMM | DX: Z20.822 Contact with and (suspected) exposure to COVID-19 (principal); Z53.8 Procedure and treatment not carried out for other reasons ==

== ENCOUNTER → 2021-01-24 | Outpatient (REF) | payer MEDICARE, MEDICAID ==
[2021-01-24 13:03] LABS: BASO % 0.4 % (0.0-1.0); EOS # 0.2 10^3/uL (0.0-0.5); EOS % 3.3 % (0.0-3.0); HEMATOCRIT 30.6 % (36.0-47.0); HEMOGLOBIN 9.5 g/dl (12.0-15.5); LYMPH # 1.1 10^3/uL (1.5-5.0); MEAN CORPUSCULAR HEMOGLOBIN 29.3 pg (27.0-33.0); MEAN CORPUSCULAR VOLUME 94.4 fl (80.0-96.0); MONO % 13.6 % (2.0-8.0); NEUTROPHILS # 4.6 10^3/uL (1.5-8.5); NEUTROPHILS % 66.1 % (36.0-66.0); PLATELET COUNT, AUTOMATED 237 10^3/uL (150-450); RED BLOOD COUNT 3.24 10^6/uL (4.00-5.40)
[2021-01-24 13:47] LABS: ALBUMIN 2.9 GM/DL (3.2-5.2); CALCIUM LEVEL 8.8 MG/DL (8.8-10.2); CREATININE FOR GFR 1.26 MG/DL (0.55-1.30); GLOMERULAR FILTRATION RATE 54.3 (>45); PERCENT SATURATION 42.1 % (13.2-45.0); POTASSIUM SERUM 3.8 MEQ/L (3.5-5.1); PTH INTACT 105.9 PG/ML (18.5-88.0)
== END ==
LOC: SKLAB2 07:00
PROVIDERS: ATTEND Neuromusculoskeletal Medicine & OMM
DX: I50.9 Heart failure, unspecified (principal); N18.9 Chronic kidney disease, unspecified

== ENCOUNTER → 2021-01-28 | Outpatient (REF) | payer MEDICARE, MEDICAID | LOC: SKLAB6 05:58 | PROVIDERS: ATTEND Neuromusculoskeletal Medicine & OMM | DX: Z20.822 Contact with and (suspected) exposure to COVID-19 (principal) ==

== ENCOUNTER → 2021-01-29 | Outpatient (REF) | payer MEDICARE, MEDICAID | LOC: SKLAB2 12:22 | PROVIDERS: ATTEND Neuromusculoskeletal Medicine & OMM | DX: U07.1 COVID-19 (principal); Z53.9 Procedure and treatment not carried out, unspecified reason ==

== ENCOUNTER → 2021-01-30 | Outpatient (REF) | payer MEDICARE, MEDICAID ==
[2021-01-30 12:46] LABS: HEMATOCRIT 29.9 % (36.0-47.0); HEMOGLOBIN 9.7 g/dl (12.0-15.5); MEAN CORPUSCULAR HEMOGLOBIN 30.2 pg (27.0-33.0); MEAN CORPUSCULAR HGB CONC 32.4 g/dl (32.0-36.5); MEAN CORPUSCULAR VOLUME 93.1 fl (80.0-96.0); PLATELET COUNT, AUTOMATED 202 10^3/uL (150-450); RED BLOOD COUNT 3.21 10^6/uL (4.00-5.40); WHITE BLOOD COUNT 8.5 10^3/uL (4.0-10.0)
[2021-01-30 13:15] LABS: ALBUMIN 2.9 GM/DL (3.2-5.2); BILIRUBIN,TOTAL 0.3 MG/DL (0.2-1.0); C REACTIVE PROTEIN QUANTITATIV 8.66 MG/DL (0.00-0.30); CALCIUM LEVEL 8.6 MG/DL (8.8-10.2); CREATININE FOR GFR 1.32 MG/DL (0.55-1.30); GLOMERULAR FILTRATION RATE 51.5 (>45); POTASSIUM SERUM 3.9 MEQ/L (3.5-5.1); TOTAL PROTEIN 7.1 GM/DL (6.4-8.2)
[2021-01-30 13:24] LABS: PROLACTIN 5.2 NG/ML
--- NOTE | 2021-01-30 14:26 | REP ---
INDICATION: COVID 19. COMPARISON: Multiple the latest 10/15/2020 TECHNIQUE: Portable FINDINGS: The technique utilized in obtaining the radiograph has magnified the cardiac silhouette and attenuated the interstitial markings. Once again, there is cardiomegaly accentuated by technique. Once again, there is an increase in the interstitial markings bilaterally in somewhat of a patchy appearance. This does not appear to be changed significantly when the technical differences between the examinations are taken into consideration. The lung holliday are somewhat better expanded today. There is no change in the osseous structures. IMPRESSION: No significant change from the prior exam. Increased patchy interstitial markings as described above. There is cardiomegaly accentuated by technique status quo. <Electronically signed by Frantz Montenegro > 01/30/21 [id number]
== END ==
LOC: SKLAB2 11:38
PROVIDERS: ATTEND Neuromusculoskeletal Medicine & OMM
DX: U07.1 COVID-19 (principal); J98.4 Other disorders of lung; I51.7 Cardiomegaly

== ENCOUNTER → 2021-01-31 | Outpatient (REF) | payer MEDICARE, MEDICAID ==
[~2021-01-31] MED LIST changes: +ACETAMINOPHEN TAB 650MG DOSE (2X325MG) PO ONE; +ALBUTEROL 90 MCG/ACT 8GM HFA INHALER INH PRN; +ALBUTEROL SULFATE 2.5 MG/0.5 ML INH NEB SOLN INH PRN; +BAMLANIVIMAB 700 MG, ETESEVIMAB 1,400 MG in NS 250 ML IV ONE; +EPINEPHrine INJ 1 MG/ML 1ML AMP IM PRN; +NS 1,000 ML IV SCH; +diphenhydrAMINE 50MG/ML VIAL (J1200) IV ONE; +diphenhydrAMINE 50MG/ML VIAL (J1200) IV PRN; +methylPREDNISolone 125MG 2ML VIAL IV ONE; +methylPREDNISolone 125MG 2ML VIAL IV PRN
== END ==
LOC: SKLAB2 09:35
PROVIDERS: ATTEND Neuromusculoskeletal Medicine & OMM
DX: U07.1 COVID-19 (principal)

== ENCOUNTER → 2021-02-01 | Outpatient (REF) | payer MEDICARE, MEDICAID ==
[~2021-02-01] MED LIST changes: -ACETAMINOPHEN TAB 650MG DOSE (2X325MG) PO ONE; -ALBUTEROL 90 MCG/ACT 8GM HFA INHALER INH PRN; -ALBUTEROL SULFATE 2.5 MG/0.5 ML INH NEB SOLN INH PRN; -BAMLANIVIMAB 700 MG, ETESEVIMAB 1,400 MG in NS 250 ML IV ONE; -EPINEPHrine INJ 1 MG/ML 1ML AMP IM PRN; -NS 1,000 ML IV SCH; -diphenhydrAMINE 50MG/ML VIAL (J1200) IV ONE; -diphenhydrAMINE 50MG/ML VIAL (J1200) IV PRN; -methylPREDNISolone 125MG 2ML VIAL IV ONE; -methylPREDNISolone 125MG 2ML VIAL IV PRN
== END ==
LOC: SKLAB2 07:00
PROVIDERS: ATTEND Neuromusculoskeletal Medicine & OMM
DX: U07.1 COVID-19 (principal); Z53.8 Procedure and treatment not carried out for other reasons

== ENCOUNTER → 2021-02-04 | Outpatient (REF) | payer MEDICARE, MEDICAID ==
[2021-02-04 09:30] LABS: HEMATOCRIT 30.2 % (36.0-47.0); HEMOGLOBIN 9.7 g/dl (12.0-15.5); MEAN CORPUSCULAR HEMOGLOBIN 29.8 pg (27.0-33.0); MEAN CORPUSCULAR HGB CONC 32.1 g/dl (32.0-36.5); MEAN CORPUSCULAR VOLUME 92.6 fl (80.0-96.0); PLATELET COUNT, AUTOMATED 231 10^3/uL (150-450); RED BLOOD COUNT 3.26 10^6/uL (4.00-5.40); WHITE BLOOD COUNT 5.4 10^3/uL (4.0-10.0)
[2021-02-04 10:26] LABS: ALBUMIN 2.8 GM/DL (3.2-5.2); BILIRUBIN,TOTAL 0.4 MG/DL (0.2-1.0); CALCIUM LEVEL 8.3 MG/DL (8.8-10.2); CREATININE FOR GFR 1.27 MG/DL (0.55-1.30); GLOMERULAR FILTRATION RATE 53.8 (>45); POTASSIUM SERUM 3.7 MEQ/L (3.5-5.1); TOTAL PROTEIN 7.4 GM/DL (6.4-8.2)
--- NOTE | 2021-02-04 16:19 | REP ---
INDICATION: HYPOXIA. COMPARISON: 01/30/2021 also portable TECHNIQUE: Portable FINDINGS: These images were obtained using digital radiography. Once again, there is cardiomegaly accentuated by technique. Once again, patchy interstitial opacities are seen diffusely throughout the lung holliday. Patchy airspace opacities might also be developing. There is no change in the osseous structures. IMPRESSION: Abnormal lung field opacities as described above. There may be a slight worsening of findings as described above. <Electronically signed by Frantz Montenegro > 02/04/21 [id number]
== END ==
LOC: SKLAB2 09:45
PROVIDERS: ATTEND Neuromusculoskeletal Medicine & OMM
DX: U07.1 COVID-19 (principal); J98.4 Other disorders of lung; I51.7 Cardiomegaly

== ENCOUNTER → 2021-02-06 | Outpatient (REF) | payer MEDICARE, MEDICAID ==
[2021-02-06 11:10] LABS: HEMATOCRIT 29.3 % (36.0-47.0); HEMOGLOBIN 9.4 g/dl (12.0-15.5); MEAN CORPUSCULAR HEMOGLOBIN 29.7 pg (27.0-33.0); MEAN CORPUSCULAR HGB CONC 32.1 g/dl (32.0-36.5); MEAN CORPUSCULAR VOLUME 92.4 fl (80.0-96.0); PLATELET COUNT, AUTOMATED 299 10^3/uL (150-450); RED BLOOD COUNT 3.17 10^6/uL (4.00-5.40); WHITE BLOOD COUNT 5.4 10^3/uL (4.0-10.0)
--- NOTE | 2021-02-06 11:22 | REP ---
INDICATION: COVID. COMPARISON: Multiple the latest 02/04/2021 at 3:26 p.m. TECHNIQUE: Portable FINDINGS: The technique utilized in obtaining the radiograph has magnified the cardiac silhouette and accentuated the interstitial markings. Once again, there is cardiomegaly accentuated by technique. Once again, there are patchy predominantly interstitial opacities which appear somewhat improved. No new abnormal opacities have developed. There is no change in the osseous structures. IMPRESSION: There appears to be some improvement as described above. <Electronically signed by Frantz Montenegro > 02/06/21 [id number]
[2021-02-06 11:45] LABS: ALBUMIN 2.8 GM/DL (3.2-5.2); ALT/SGPT 22 U/L (12-78); BILIRUBIN,TOTAL 0.3 MG/DL (0.2-1.0); BLOOD UREA NITROGEN 34 MG/DL (7-18); CALCIUM LEVEL 8.6 MG/DL (8.8-10.2); CARBON DIOXIDE LEVEL 34 MEQ/L (21-32); CHLORIDE LEVEL 102 MEQ/L (98-107); CREATININE FOR GFR 1.15 MG/DL (0.55-1.30); GLOMERULAR FILTRATION RATE > 60.0 (>45); GLUCOSE, FASTING 128 MG/DL (70-100); POTASSIUM SERUM 3.7 MEQ/L (3.5-5.1); SODIUM LEVEL 139 MEQ/L (136-145); TOTAL PROTEIN 7.3 GM/DL (6.4-8.2)
== END ==
LOC: SKLAB2 07:00
PROVIDERS: ATTEND Neuromusculoskeletal Medicine & OMM
DX: U07.1 COVID-19 (principal); Z79.899 Other long term (current) drug therapy

== ENCOUNTER → 2021-02-08 | Outpatient (REF) | payer MEDICARE, MEDICAID ==
[2021-02-08 10:13] LABS: HEMATOCRIT 28.8 % (36.0-47.0); HEMOGLOBIN 9.2 g/dl (12.0-15.5); MEAN CORPUSCULAR HEMOGLOBIN 29.9 pg (27.0-33.0); MEAN CORPUSCULAR HGB CONC 31.9 g/dl (32.0-36.5); MEAN CORPUSCULAR VOLUME 93.5 fl (80.0-96.0); PLATELET COUNT, AUTOMATED 349 10^3/uL (150-450); RED BLOOD COUNT 3.08 10^6/uL (4.00-5.40); WHITE BLOOD COUNT 5.9 10^3/uL (4.0-10.0)
[2021-02-08 10:45] LABS: ALBUMIN 2.6 GM/DL (3.2-5.2); ALT/SGPT 19 U/L (12-78); BILIRUBIN,TOTAL 0.2 MG/DL (0.2-1.0); BLOOD UREA NITROGEN 30 MG/DL (7-18); CALCIUM LEVEL 8.3 MG/DL (8.8-10.2); CARBON DIOXIDE LEVEL 33 MEQ/L (21-32); CHLORIDE LEVEL 98 MEQ/L (98-107); CREATININE FOR GFR 1.02 MG/DL (0.55-1.30); GLOMERULAR FILTRATION RATE > 60.0 (>45); GLUCOSE, FASTING 109 MG/DL (70-100); POTASSIUM SERUM 3.8 MEQ/L (3.5-5.1); SODIUM LEVEL 136 MEQ/L (136-145); TOTAL PROTEIN 6.8 GM/DL (6.4-8.2)
== END ==
LOC: SKLAB2 08:15
PROVIDERS: ATTEND Neuromusculoskeletal Medicine & OMM
DX: U07.1 COVID-19 (principal); Z79.899 Other long term (current) drug therapy

== ENCOUNTER → 2021-04-03 | Outpatient (REF) | payer MEDICARE, MEDICAID ==
[2021-04-03 13:20] LABS: HEMATOCRIT 29.2 % (36.0-47.0); HEMOGLOBIN 8.9 g/dl (12.0-15.5); MEAN CORPUSCULAR HEMOGLOBIN 29.9 pg (27.0-33.0); MEAN CORPUSCULAR HGB CONC 30.5 g/dl (32.0-36.5); PLATELET COUNT, AUTOMATED 258 10^3/uL (150-450); RED BLOOD COUNT 2.98 10^6/uL (4.00-5.40); WHITE BLOOD COUNT 6.6 10^3/uL (4.0-10.0)
[2021-04-03 13:49] LABS: BLOOD UREA NITROGEN 36 MG/DL (7-18); CALCIUM LEVEL 8.3 MG/DL (8.8-10.2); CARBON DIOXIDE LEVEL 31 MEQ/L (21-32); CHLORIDE LEVEL 105 MEQ/L (98-107); CREATININE FOR GFR 1.15 MG/DL (0.55-1.30); GLOMERULAR FILTRATION RATE > 60.0 (>45); GLUCOSE, FASTING 160 MG/DL (70-100); NT-PRO BNP 6850 PG/ML (<125); POTASSIUM SERUM 3.8 MEQ/L (3.5-5.1); SODIUM LEVEL 141 MEQ/L (136-145)
== END ==
LOC: SKLAB5 10:31
PROVIDERS: ATTEND Neuromusculoskeletal Medicine & OMM
DX: I50.9 Heart failure, unspecified (principal)

== ENCOUNTER → 2021-04-17 | Outpatient (REF) | payer MEDICARE, MEDICAID ==
[~2021-04-17] MED LIST changes: -CHLO1.4S2 PO; +CHLO1.4S7 PO; +LOSA100T45 PO; -LOSA100T50 PO
[2021-04-17 10:18] LABS: HEMATOCRIT 30.3 % (36.0-47.0); HEMOGLOBIN 9.3 g/dl (12.0-15.5); MEAN CORPUSCULAR HEMOGLOBIN 30.3 pg (27.0-33.0); MEAN CORPUSCULAR HGB CONC 30.7 g/dl (32.0-36.5); MEAN CORPUSCULAR VOLUME 98.7 fl (80.0-96.0); PLATELET COUNT, AUTOMATED 222 10^3/uL (150-450); RED BLOOD COUNT 3.07 10^6/uL (4.00-5.40)
[2021-04-17 11:03] LABS: CALCIUM LEVEL 8.5 MG/DL (8.8-10.2); CREATININE FOR GFR 1.21 MG/DL (0.55-1.30); GLOMERULAR FILTRATION RATE 56.9 (>45); POTASSIUM SERUM 3.7 MEQ/L (3.5-5.1)
== END ==
LOC: SKLAB5 07:00
PROVIDERS: ATTEND Neuromusculoskeletal Medicine & OMM
DX: I50.9 Heart failure, unspecified (principal)

== ENCOUNTER → 2021-05-02 | Outpatient (REF) | payer MEDICARE, MEDICAID ==
[2021-05-02 10:13] LABS: HEMATOCRIT 29.8 % (36.0-47.0); HEMOGLOBIN 9.2 g/dl (12.0-15.5); MEAN CORPUSCULAR HEMOGLOBIN 30.5 pg (27.0-33.0); MEAN CORPUSCULAR HGB CONC 30.9 g/dl (32.0-36.5); MEAN CORPUSCULAR VOLUME 98.7 fl (80.0-96.0); PLATELET COUNT, AUTOMATED 212 10^3/uL (150-450); RED BLOOD COUNT 3.02 10^6/uL (4.00-5.40); WHITE BLOOD COUNT 5.9 10^3/uL (4.0-10.0)
[2021-05-02 10:34] LABS: CALCIUM LEVEL 8.2 MG/DL (8.8-10.2); CREATININE FOR GFR 1.29 MG/DL (0.55-1.30); GLOMERULAR FILTRATION RATE 52.9 (>45); POTASSIUM SERUM 3.9 MEQ/L (3.5-5.1)
== END ==
LOC: SKLAB5 08:31
PROVIDERS: ATTEND Neuromusculoskeletal Medicine & OMM
DX: N18.9 Chronic kidney disease, unspecified (principal)

== ENCOUNTER → 2021-05-09 | Outpatient (REF) | payer MEDICARE, MEDICAID | LOC: SKLAB5 14:52 | PROVIDERS: ATTEND Neuromusculoskeletal Medicine & OMM | DX: I50.9 Heart failure, unspecified (principal) ==

== ENCOUNTER → 2021-05-09 | Outpatient (REF) | payer MEDICARE, MEDICAID ==
[2021-05-09 13:01] LABS: HEMATOCRIT 31.2 % (36.0-47.0); HEMOGLOBIN 9.7 g/dl (12.0-15.5); MEAN CORPUSCULAR HEMOGLOBIN 30.9 pg (27.0-33.0); MEAN CORPUSCULAR HGB CONC 31.1 g/dl (32.0-36.5); MEAN CORPUSCULAR VOLUME 99.4 fl (80.0-96.0); PLATELET COUNT, AUTOMATED 236 10^3/uL (150-450); RED BLOOD COUNT 3.14 10^6/uL (4.00-5.40); WHITE BLOOD COUNT 6.1 10^3/uL (4.0-10.0)
[2021-05-09 13:25] LABS: CALCIUM LEVEL 8.4 MG/DL (8.8-10.2); CREATININE FOR GFR 1.25 MG/DL (0.55-1.30); GLOMERULAR FILTRATION RATE 54.8 (>45); POTASSIUM SERUM 4.2 MEQ/L (3.5-5.1)
== END ==
LOC: SKLAB5 11:47
PROVIDERS: ATTEND Neuromusculoskeletal Medicine & OMM
DX: I50.9 Heart failure, unspecified (principal)

== ENCOUNTER → 2021-05-13 | Outpatient (REF) | payer MEDICARE, MEDICAID ==
[2021-05-13 07:23] LABS: HEMATOCRIT 29.9 % (36.0-47.0); HEMOGLOBIN 9.1 g/dl (12.0-15.5); MEAN CORPUSCULAR HEMOGLOBIN 30.1 pg (27.0-33.0); MEAN CORPUSCULAR HGB CONC 30.4 g/dl (32.0-36.5); PLATELET COUNT, AUTOMATED 221 10^3/uL (150-450); RED BLOOD COUNT 3.02 10^6/uL (4.00-5.40); WHITE BLOOD COUNT 6.3 10^3/uL (4.0-10.0)
[2021-05-13 07:46] LABS: CALCIUM LEVEL 8.5 MG/DL (8.8-10.2); CREATININE FOR GFR 1.38 MG/DL (0.55-1.30); GLOMERULAR FILTRATION RATE 48.9 (>45)
[2021-05-13 09:37] LABS: THYROID STIMULATING HORMONE 1.01 uIU/ML (0.358-3.740)
== END ==
LOC: SKLAB5 07:00
PROVIDERS: ATTEND Neuromusculoskeletal Medicine & OMM
DX: I50.9 Heart failure, unspecified (principal); Z79.899 Other long term (current) drug therapy

== ENCOUNTER → 2021-05-16 | Outpatient (REF) | payer MEDICARE, MEDICAID ==
[2021-05-16 12:28] LABS: HEMATOCRIT 28.7 % (36.0-47.0); HEMOGLOBIN 8.9 g/dl (12.0-15.5); MEAN CORPUSCULAR HEMOGLOBIN 31.1 pg (27.0-33.0); MEAN CORPUSCULAR VOLUME 100.3 fl (80.0-96.0); PLATELET COUNT, AUTOMATED 230 10^3/uL (150-450); RED BLOOD COUNT 2.86 10^6/uL (4.00-5.40); WHITE BLOOD COUNT 5.4 10^3/uL (4.0-10.0)
[2021-05-16 12:59] LABS: CALCIUM LEVEL 8.6 MG/DL (8.8-10.2); CREATININE FOR GFR 1.32 MG/DL (0.55-1.30); GLOMERULAR FILTRATION RATE 51.5 (>45); POTASSIUM SERUM 3.8 MEQ/L (3.5-5.1)
== END ==
LOC: SKLAB5 07:00
PROVIDERS: ATTEND Neuromusculoskeletal Medicine & OMM
DX: I50.9 Heart failure, unspecified (principal)

== ENCOUNTER → 2021-05-23 | Outpatient (REF) | payer MEDICARE, MEDICAID ==
[2021-05-23 13:21] LABS: APPEARANCE, URINE CLEAR (CLEAR); BACTERIA, URINE AUTO NEGATIVE (NEGATIVE); BILIRUBIN, URINE AUTO NEGATIVE (NEGATIVE); BLOOD, URINE BLOOD NEGATIVE (NEGATIVE); GLUCOSE, URINE (UA) AUTO NEGATIVE (NEGATIVE); KETONE, URINE AUTO NEGATIVE (NEGATIVE); LEUKOCYTE ESTERASE, URINE AUTO NEGATIVE (NEGATIVE); MUCUS, URINE SMALL (NEGATIVE); NITRITE, URINE AUTO NEGATIVE (NEGATIVE); PROTEIN, URINE AUTO NEGATIVE (NEGATIVE); RBC, URINE AUTO 1 /HPF (0-3); SPECIFIC GRAVITY URINE AUTO 1.009 (1.002-1.035); SQUAMOUS EPITHELIAL CELL UR AU 1 /HPF (0-6); UROBILINOGEN, URINE AUTO 0.2 mg/dL (0.0-2.0); WBC, URINE AUTO 3 /HPF (0-3)
[2021-05-23 13:40] LABS: COLOR, URINE YELLOW (YELLOW)
== END ==
LOC: SKLAB5 12:19
PROVIDERS: ATTEND Neuromusculoskeletal Medicine & OMM
DX: R30.0 Dysuria (principal)

== ENCOUNTER → 2021-05-30 | Outpatient (REF) | payer MEDICARE, MEDICAID ==
[2021-05-30 14:46] LABS: CREATININE FOR GFR 1.45 MG/DL (0.55-1.30); GLOMERULAR FILTRATION RATE 46.2 (>45); MAGNESIUM LEVEL 2.6 MG/DL (1.8-2.4); POTASSIUM SERUM 3.9 MEQ/L (3.5-5.1)
== END ==
LOC: SKLAB5 07:00
PROVIDERS: ATTEND Neuromusculoskeletal Medicine & OMM
DX: I50.9 Heart failure, unspecified (principal)

== ENCOUNTER → 2021-05-31 | Outpatient (REF) | payer MEDICARE, MEDICAID | LOC: SKLAB5 07:00 | PROVIDERS: ATTEND Neuromusculoskeletal Medicine & OMM | DX: I50.9 Heart failure, unspecified (principal) ==

== ENCOUNTER → 2021-06-12 | Outpatient (CLI) | payer MEDICARE, MEDICAID | LOC: M RAD 13:27 | PROVIDERS: ATTEND Physician Assistant | DX: I50.32 Chronic diastolic (congestive) heart failure (principal) ==

== ENCOUNTER → 2021-06-13 | Outpatient (REF) | payer MEDICARE, MEDICAID ==
[2021-06-13 08:25] LABS: HEMATOCRIT 27.8 % (36.0-47.0); HEMOGLOBIN 8.7 g/dl (12.0-15.5); MEAN CORPUSCULAR HEMOGLOBIN 30.6 pg (27.0-33.0); MEAN CORPUSCULAR HGB CONC 31.3 g/dl (32.0-36.5); MEAN CORPUSCULAR VOLUME 97.9 fl (80.0-96.0); PLATELET COUNT, AUTOMATED 218 10^3/uL (150-450); RED BLOOD COUNT 2.84 10^6/uL (4.00-5.40); WHITE BLOOD COUNT 5.9 10^3/uL (4.0-10.0)
[2021-06-13 08:46] LABS: CALCIUM LEVEL 8.2 MG/DL (8.8-10.2); CREATININE FOR GFR 1.55 MG/DL (0.55-1.30); GLOMERULAR FILTRATION RATE 42.8 (>45)
== END ==
LOC: SKLAB5 07:00
PROVIDERS: ATTEND Neuromusculoskeletal Medicine & OMM
DX: I50.9 Heart failure, unspecified (principal)

== ENCOUNTER → 2021-06-19 | Outpatient (CLI) | payer MEDICARE, MEDICAID | LOC: M RAD 13:36 | PROVIDERS: ATTEND Nurse Practitioner Adult Health | DX: R74.01 Elevation of levels of liver transaminase levels (principal) ==

== ENCOUNTER → 2021-06-27 | Outpatient (REF) | payer MEDICARE, MEDICAID | LOC: SKLAB5 12:11 | PROVIDERS: ATTEND Neuromusculoskeletal Medicine & OMM | DX: M16.12 Unilateral primary osteoarthritis, left hip (principal) ==

== ENCOUNTER → 2021-07-01 | Outpatient (REF) | payer MEDICARE, MEDICAID ==
[2021-07-01 11:18] LABS: BASO % 0.5 % (0.0-1.0); EOS # 0.2 10^3/uL (0.0-0.5); HEMATOCRIT 27.3 % (36.0-47.0); HEMOGLOBIN 8.6 g/dl (12.0-15.5); LYMPH # 0.7 10^3/uL (1.5-5.0); LYMPH % 8.7 % (24.0-44.0); MEAN CORPUSCULAR HEMOGLOBIN 30.4 pg (27.0-33.0); MEAN CORPUSCULAR HGB CONC 31.5 g/dl (32.0-36.5); MEAN CORPUSCULAR VOLUME 96.5 fl (80.0-96.0); MONO # 1.3 10^3/uL (0.0-0.8); MONO % 16.1 % (2.0-8.0); NEUTROPHILS # 5.6 10^3/uL (1.5-8.5); NEUTROPHILS % 69.7 % (36.0-66.0); PLATELET COUNT, AUTOMATED 214 10^3/uL (150-450); RED BLOOD COUNT 2.83 10^6/uL (4.00-5.40)
[2021-07-01 11:59] LABS: CALCIUM LEVEL 8.9 MG/DL (8.8-10.2); CREATININE FOR GFR 1.88 MG/DL (0.55-1.30); GLOMERULAR FILTRATION RATE 34.2 (>45)
== END ==
LOC: SKLAB5 07:19
PROVIDERS: ATTEND Neuromusculoskeletal Medicine & OMM
DX: I50.9 Heart failure, unspecified (principal)

== ENCOUNTER → 2021-07-03 | Outpatient (REF) | payer MEDICARE, MEDICAID ==
[2021-07-03 20:08] LABS: HEMATOCRIT 26.9 % (36.0-47.0); HEMOGLOBIN 8.4 g/dl (12.0-15.5); MEAN CORPUSCULAR HEMOGLOBIN 30.7 pg (27.0-33.0); MEAN CORPUSCULAR HGB CONC 31.2 g/dl (32.0-36.5); MEAN CORPUSCULAR VOLUME 98.2 fl (80.0-96.0); PLATELET COUNT, AUTOMATED 204 10^3/uL (150-450); RED BLOOD COUNT 2.74 10^6/uL (4.00-5.40); WHITE BLOOD COUNT 6.3 10^3/uL (4.0-10.0)
[2021-07-03 20:36] LABS: CALCIUM LEVEL 8.6 MG/DL (8.8-10.2); CREATININE FOR GFR 1.93 MG/DL (0.55-1.30); GLOMERULAR FILTRATION RATE 33.2 (>45); POTASSIUM SERUM 3.8 MEQ/L (3.5-5.1)
== END ==
LOC: SKLAB5 18:11
PROVIDERS: ATTEND Neuromusculoskeletal Medicine & OMM
DX: R53.83 Other fatigue (principal); R06.02 Shortness of breath

== ENCOUNTER → 2021-07-03 | Outpatient (CLI) | payer MEDICARE, MEDICAID | LOC: M LAB 10:47 | PROVIDERS: ATTEND Neuromusculoskeletal Medicine & OMM | DX: R07.9 Chest pain, unspecified (principal) ==

== ENCOUNTER → 2021-07-03 | Outpatient (REF) | payer MEDICARE, MEDICAID | LOC: SKLAB5 07:05 | PROVIDERS: ATTEND Neuromusculoskeletal Medicine & OMM | DX: I51.7 Cardiomegaly (principal) ==

== ENCOUNTER → 2021-07-18 | Outpatient (REF) | payer MEDICARE, MEDICAID ==
[2021-07-18 12:32] LABS: CALCIUM LEVEL 8.9 MG/DL (8.8-10.2); CREATININE FOR GFR 1.57 MG/DL (0.55-1.30); GLOMERULAR FILTRATION RATE 42.1 (>45); POTASSIUM SERUM 3.7 MEQ/L (3.5-5.1)
== END ==
LOC: SKLAB5 07:00
PROVIDERS: ATTEND Neuromusculoskeletal Medicine & OMM
DX: I50.9 Heart failure, unspecified (principal)

== ENCOUNTER → 2021-07-23 | Outpatient (CLI) | payer MEDICARE, MEDICAID | LOC: M WHC 10:18 | PROVIDERS: ATTEND Nurse Practitioner Adult Health | DX: Z85.3 Personal history of malignant neoplasm of breast (principal) ==

== ENCOUNTER → 2021-08-01 | Outpatient (REF) | payer MEDICARE, MEDICAID ==
[2021-08-01 08:38] LABS: HEMOGLOBIN 8.4 g/dl (12.0-15.5); MEAN CORPUSCULAR HEMOGLOBIN 30.1 pg (27.0-33.0); MEAN CORPUSCULAR HGB CONC 31.1 g/dl (32.0-36.5); MEAN CORPUSCULAR VOLUME 96.8 fl (80.0-96.0); PLATELET COUNT, AUTOMATED 200 10^3/uL (150-450); RED BLOOD COUNT 2.79 10^6/uL (4.00-5.40); WHITE BLOOD COUNT 5.4 10^3/uL (4.0-10.0)
[2021-08-01 09:09] LABS: CALCIUM LEVEL 9.2 MG/DL (8.8-10.2); CREATININE FOR GFR 1.57 MG/DL (0.55-1.30); GLOMERULAR FILTRATION RATE 42.1 (>45)
== END ==
LOC: SKLAB5 07:49
PROVIDERS: ATTEND Neuromusculoskeletal Medicine & OMM
DX: I50.9 Heart failure, unspecified (principal)

== ENCOUNTER → 2021-08-05 | Outpatient (REF) | payer MEDICARE, MEDICAID | LOC: SKLAB5 12:32 | PROVIDERS: ATTEND Neuromusculoskeletal Medicine & OMM | DX: I50.9 Heart failure, unspecified (principal) ==

== ENCOUNTER → 2021-08-11 | Outpatient (REF) ==
[2021-08-12 00:10] LABS: ALBUMIN 3.3 GM/DL (3.2-5.2); BILIRUBIN,TOTAL 0.4 MG/DL (0.2-1.0); CALCIUM LEVEL 8.7 MG/DL (8.8-10.2); CREATININE FOR GFR 2.38 MG/DL (0.55-1.30); GLOMERULAR FILTRATION RATE 26.1 (>45); HEMATOCRIT 28.7 % (36.0-47.0); HEMOGLOBIN 8.6 g/dl (12.0-15.5); MEAN CORPUSCULAR HEMOGLOBIN 30.1 pg (27.0-33.0); MEAN CORPUSCULAR VOLUME 100.3 fl (80.0-96.0); PLATELET COUNT, AUTOMATED 208 10^3/uL (150-450); RED BLOOD COUNT 2.86 10^6/uL (4.00-5.40); TOTAL PROTEIN 7.8 GM/DL (6.4-8.2); WHITE BLOOD COUNT 7.8 10^3/uL (4.0-10.0)
== END ==
LOC: SKLAB5 21:21
PROVIDERS: ATTEND Neuromusculoskeletal Medicine & OMM
DX: R07.89 Other chest pain (principal)

== ENCOUNTER 2021-08-13 15:43 | Inpatient (IN) | payer MEDICARE, MEDICAID ==
[~2021-08-13] VITALS: Ht 154.9 cm; Wt 118.0 kg
[~2021-08-13 15:43] MED LIST changes: -APAP325T4 PO; -ATIV1TAB10 PO; -CLAR10CA3 PO; -DICL20GE TP; -HYOS125TA PO; -METO1TAB87 PO; -METO25TA PO; -MORP1SOL5 PO; -OXCA150T21 PO; -SENN1TAB41 PO; -SYST1SOL4 OU
[2021-08-13] MEDS ORDERED: FUROSEMIDE 100MG/10ML VIAL (J1940) IV ONE (16:15)
[2021-08-13 16:24] LABS: VENOUS BASE EXCESS 8.2 (-2.0-2.0); VENOUS HCO3 35.8 MEQ/L (23.0-27.0); VENOUS O2 SATURATION 86.9 % (60.0-80.0); VENOUS PARTIAL PRESSURE O2 57.1 mmHg (30.0-50.0); VENOUS PH 7.333 UNITS (7.330-7.430); VENOUS STANDARD HCO3 31.8 MEQ/L; VENOUS TOTAL CO2 37.9 MEQ/L (24.0-28.0)
[2021-08-13] MEDS ORDERED: METO25TA PO (19:01)
[2021-08-13] MEDS ORDERED: OXCA150T21 PO (19:01)
[2021-08-13] MEDS ORDERED: METO1TAB87 PO (19:01)
[2021-08-13] MEDS ORDERED: GABA-1171 PO (19:08)
[2021-08-13] MEDS ORDERED: SENN1TAB41 PO (19:08)
[2021-08-13] MEDS ORDERED: SYST1SOL4 OU (19:10)
[2021-08-13] MEDS ORDERED: APAP325T4 PO (19:12)
[2021-08-13] MEDS ORDERED: DICL20GE TP ×2 (19:19→19:36)
[2021-08-13] MEDS ORDERED: TORS20TA2 PO (19:36)
[2021-08-13] MEDS ORDERED: CLAR10CA3 PO (19:36)
[2021-08-13] MEDS ORDERED: PHEN100C PO (19:38)
[2021-08-13] MEDS ORDERED: HOME MED LIST COMPLETE! XX SCH (19:45)
[2021-08-13] MEDS ORDERED: DEXTROSE 50% 50 ML SYRINGE IV PRN (20:10)
[2021-08-13] MEDS ORDERED: GLUCOSE 4GM CHEW TABLET PO PRN (20:10)
[2021-08-13] MEDS ORDERED: GLUCAGON INJ 1MG VIAL SC PRN (20:10)
[2021-08-13] MEDS ORDERED: ALBUTEROL SULFATE 2.5 MG/0.5 ML INH NEB SOLN NEB PRN (20:10)
[2021-08-13] MEDS ORDERED: HEPARIN SOD (PORCINE) 5000UNITS/ML 1ML VIAL/SYRINGE IV PRN (22:25)
[2021-08-13] MEDS ORDERED: HEPARIN DRIP 25,000 UNITS in IV 1 EA IV SCH (22:25)
[2021-08-13] MEDS ORDERED: diphenhydrAMINE 50MG CAP PO ONE (22:25)
[2021-08-13] MEDS ORDERED: HEPARIN SOD (PORCINE) 5000UNITS/ML 1ML VIAL/SYRINGE IV ONE (22:25)
[2021-08-13] MEDS: GABAPENTIN 100 MG CAP PO SCH (22:34)
[2021-08-13] MEDS: OXcarbazepine 150 MG TAB PO SCH (22:34)
[2021-08-13 23:32] LABS: HEMATOCRIT 27.7 % (36.0-47.0); HEMOGLOBIN 8.6 g/dl (12.0-15.5); MEAN CORPUSCULAR HEMOGLOBIN 30.9 pg (27.0-33.0); MEAN CORPUSCULAR VOLUME 99.6 fl (80.0-96.0); PLATELET COUNT, AUTOMATED 209 10^3/uL (150-450); RED BLOOD COUNT 2.78 10^6/uL (4.00-5.40); WHITE BLOOD COUNT 6.6 10^3/uL (4.0-10.0)
[2021-08-14] VITALS (9 sets, daily range): BP systolic 152–175; BP diastolic 67–98
[2021-08-14] MEDS: BRIMONIDINE 0.15% OPHTH SOLN 5 ML OU SCH ×4 (01:30→20:37)
[2021-08-14] MEDS: PHENYTOIN 100 MG/2 ML VIAL (J1165) IV SCH ×2 (01:30→20:39)
[2021-08-14] MEDS: CLOPIDOGREL 75 MG TAB PO SCH ×2 (01:30→09:00)
[2021-08-14 02:44] LABS: ALBUMIN 2.9 GM/DL (3.2-5.2); BILIRUBIN,TOTAL 0.3 MG/DL (0.2-1.0); CALCIUM LEVEL 8.9 MG/DL (8.8-10.2); CREATININE FOR GFR 2.55 MG/DL (0.55-1.30); GLOMERULAR FILTRATION RATE 24.1 (>45); MAGNESIUM LEVEL 3.5 MG/DL (1.8-2.4); PHOSPHORUS LEVEL 5.5 MG/DL (2.5-4.9); POTASSIUM SERUM 4.1 MEQ/L (3.5-5.1); TOTAL PROTEIN 7.5 GM/DL (6.4-8.2)
[2021-08-14 05:16] LABS: ABG BASE EXCESS 10.1 (-2.0-2.0); ABG HCO3 37.1 MEQ/L (22.0-26.0); ABG O2 SATURATION 98.8 % (95.0-99.0); ABG PARTIAL PRESSURE O2 141.4 mmHg (75.0-100.0); ABG STANDARD HCO3 33.8 MEQ/L (22.0-26.0); ABG TOTAL CO2 39.2 MEQ/L (23.0-31.0); ABG pH (ARTERIAL) 7.363 UNITS (7.350-7.450)
[2021-08-14 05:22] LABS: ABG PARTIAL PRESSURE CO2 66.8 mmHg (35.0-45.0)
[2021-08-14] MEDS ORDERED: HEPARIN SOD (PORCINE) 5000UNITS/ML 1ML VIAL/SYRINGE SC SCH (06:00)
[2021-08-14] MEDS: LEVOTHYROXINE 137MCG TABLET (0.137MG) PO SCH (06:01)
[2021-08-14 06:28] LABS: HEMATOCRIT 24.4 % (36.0-47.0); HEMOGLOBIN 7.5 g/dl (12.0-15.5); MEAN CORPUSCULAR HEMOGLOBIN 31.3 pg (27.0-33.0); MEAN CORPUSCULAR HGB CONC 30.7 g/dl (32.0-36.5); MEAN CORPUSCULAR VOLUME 101.7 fl (80.0-96.0); PLATELET COUNT, AUTOMATED 180 10^3/uL (150-450); WHITE BLOOD COUNT 6.5 10^3/uL (4.0-10.0)
[2021-08-14] MEDS: INSULIN LISPRO (NovoLOG) PER UNIT SC SCH ×4 (06:32→19:38)
[2021-08-14 06:40] LABS: INR 1.42; PROTHROMBIN TIME 17.8 SECONDS (12.7-14.5)
[2021-08-14 07:24] LABS: PARTIAL THROMBOPLASTIN TIME > 240.0 SECONDS (25.9-37.0)
[2021-08-14] MEDS: FUROSEMIDE 40MG/4ML VIAL (J1940) IV SCH ×2 (08:41→20:37)
[2021-08-14] MEDS: LEVEMIR (INSULIN DETEMIR) 1 UNITS/0.01ML SC SCH ×2 (08:42→20:38)
[2021-08-14] MEDS: GABAPENTIN 100 MG CAP PO SCH ×3 (08:42→20:38)
[2021-08-14] MEDS: PANTOPRAZOLE 40MG TAB (PROTONIX) PO SCH (08:42)
[2021-08-14] MEDS: ASPIRIN 81MG ENTERIC TABLET PO SCH (09:35)
[2021-08-14] MEDS: CALCITRIOL 0.25 MCG CAP (S0169) PO SCH (12:36)
[2021-08-14] MEDS: FERROUS SULFATE 325MG TAB PO SCH (12:36)
[2021-08-14] MEDS: metOLazone 2.5 MG TAB PO SCH (12:36)
[2021-08-14] MEDS: ACETAMINOPHEN TAB 650MG DOSE (2X325MG) PO PRN (16:14)
[2021-08-14 19:29] LABS: HEMATOCRIT 23.9 % (36.0-47.0); HEMOGLOBIN 7.4 g/dl (12.0-15.5)
[2021-08-14] MEDS: LATANOPROST 0.005% OPHTH SOLN 2.5 ML OU SCH (20:37)
[2021-08-14] MEDS: OXcarbazepine 150 MG TAB PO SCH (20:38)
[2021-08-15] VITALS (9 sets, daily range): BP systolic 150–191; BP diastolic 64–77
[2021-08-15 01:04] LABS: HEMATOCRIT 24.9 % (36.0-47.0); HEMOGLOBIN 7.7 g/dl (12.0-15.5)
[2021-08-15] MEDS: ACETAMINOPHEN TAB 650MG DOSE (2X325MG) PO PRN (04:11)
[2021-08-15 04:16] LABS: HEMATOCRIT 26.5 % (36.0-47.0); HEMOGLOBIN 8.4 g/dl (12.0-15.5); MEAN CORPUSCULAR HEMOGLOBIN 31.5 pg (27.0-33.0); MEAN CORPUSCULAR HGB CONC 31.7 g/dl (32.0-36.5); MEAN CORPUSCULAR VOLUME 99.3 fl (80.0-96.0); PLATELET COUNT, AUTOMATED 216 10^3/uL (150-450); RED BLOOD COUNT 2.67 10^6/uL (4.00-5.40); WHITE BLOOD COUNT 6.9 10^3/uL (4.0-10.0)
[2021-08-15] MEDS ORDERED: hydrALAZINE 20MG/ML 1ML VIAL (J0360 PER 20MG) IV ONE (04:35)
[2021-08-15 04:47] LABS: CREATININE FOR GFR 2.36 MG/DL (0.55-1.30); GLOMERULAR FILTRATION RATE 26.3 (>45); POTASSIUM SERUM 3.7 MEQ/L (3.5-5.1)
[2021-08-15] MEDS: INSULIN LISPRO (NovoLOG) PER UNIT SC SCH ×5 (04:50→20:20)
[2021-08-15] MEDS: LEVOTHYROXINE 137MCG TABLET (0.137MG) PO SCH (05:03)
[2021-08-15] MEDS: CALCITRIOL 0.25 MCG CAP (S0169) PO SCH (08:07)
[2021-08-15] MEDS: GABAPENTIN 100 MG CAP PO SCH ×3 (08:07→20:41)
[2021-08-15] MEDS: PANTOPRAZOLE 40MG TAB (PROTONIX) PO SCH (08:07)
[2021-08-15] MEDS: FERROUS SULFATE 325MG TAB PO SCH (08:07)
[2021-08-15] MEDS: LEVEMIR (INSULIN DETEMIR) 1 UNITS/0.01ML SC SCH ×2 (08:07→20:41)
[2021-08-15] MEDS: ASPIRIN 81MG ENTERIC TABLET PO SCH (08:07)
[2021-08-15] MEDS: FUROSEMIDE 40MG/4ML VIAL (J1940) IV SCH ×2 (08:08→20:39)
[2021-08-15] MEDS ORDERED: BISACODYL 10 MG SUPP PR PRN (08:25)
[2021-08-15] MEDS ORDERED: guaiFENesin SYRUP 200MG 10ML UDC PO PRN (08:25)
[2021-08-15] MEDS: NORCO, ANEXSIA 5/325MG TABLET (HYDROcodone/ACETAMINOPHEN) PO PRN (09:29)
[2021-08-15] MEDS: SENOKOT S TAB PO SCH ×2 (09:30→20:40)
[2021-08-15] MEDS: ASCORBIC ACID 500 MG TAB PO SCH (09:30)
[2021-08-15] MEDS: BRIMONIDINE 0.15% OPHTH SOLN 5 ML OU SCH ×3 (09:30→20:37)
[2021-08-15] MEDS ORDERED: PANTOPRAZOLE 40MG VIAL IV SCH (10:15)
[2021-08-15 10:50] LABS: HEMATOCRIT 27.7 % (36.0-47.0); HEMOGLOBIN 8.6 g/dl (12.0-15.5); MEAN CORPUSCULAR HEMOGLOBIN 30.8 pg (27.0-33.0); MEAN CORPUSCULAR VOLUME 99.3 fl (80.0-96.0); PLATELET COUNT, AUTOMATED 220 10^3/uL (150-450); RED BLOOD COUNT 2.79 10^6/uL (4.00-5.40); WHITE BLOOD COUNT 13.2 10^3/uL (4.0-10.0)
[2021-08-15] MEDS ORDERED: LIDOCAINE 1% MDV 20ML VIAL As Ordered ONE (10:58)
[2021-08-15] MEDS: SUCRALFATE 1 GM TAB PO SCH ×3 (12:33→20:40)
[2021-08-15] MEDS: hydrALAZINE 20MG/ML 1ML VIAL (J0360 PER 20MG) IV SCH ×3 (12:33→20:30)
[2021-08-15] MEDS: SODIUM CHLORIDE 0.9% INJ 10 ML SYR IV SCH (17:34)
[2021-08-15] MEDS: LATANOPROST 0.005% OPHTH SOLN 2.5 ML OU SCH (20:37)
[2021-08-15] MEDS: PANTOPRAZOLE 40MG VIAL IV SCH (20:39)
[2021-08-15] MEDS: OXcarbazepine 150 MG TAB PO SCH (20:39)
[2021-08-15] MEDS: SODIUM CHLORIDE NASAL 0.65% SPRAY BTL (OCEAN) SCH (20:39)
[2021-08-15] MEDS: ROSUVASTATIN 10 MG TAB (CRESTOR) PO SCH (20:40)
[2021-08-15] MEDS: PHENYTOIN ER 100 MG CAP PO SCH (20:40)
[2021-08-15] MEDS: LORATADINE 10 MG TAB PO SCH (20:41)
[2021-08-16] VITALS (7 sets, daily range): BP systolic 114–158; BP diastolic 50–67
[2021-08-16] MEDS: hydrALAZINE 20MG/ML 1ML VIAL (J0360 PER 20MG) IV SCH ×2 (00:23→04:30)
[2021-08-16 05:35] LABS: HEMOGLOBIN 7.8 g/dl (12.0-15.5); MEAN CORPUSCULAR HEMOGLOBIN 30.7 pg (27.0-33.0); MEAN CORPUSCULAR HGB CONC 31.2 g/dl (32.0-36.5); MEAN CORPUSCULAR VOLUME 98.4 fl (80.0-96.0); PLATELET COUNT, AUTOMATED 213 10^3/uL (150-450); RED BLOOD COUNT 2.54 10^6/uL (4.00-5.40); WHITE BLOOD COUNT 10.6 10^3/uL (4.0-10.0)
[2021-08-16 06:17] LABS: CALCIUM LEVEL 8.3 MG/DL (8.8-10.2); CREATININE FOR GFR 2.72 MG/DL (0.55-1.30); GLOMERULAR FILTRATION RATE 22.3 (>45); POTASSIUM SERUM 3.7 MEQ/L (3.5-5.1)
[2021-08-16] MEDS: SODIUM CHLORIDE 0.9% INJ 10 ML SYR IV SCH ×2 (06:17→17:45)
[2021-08-16] MEDS: LEVOTHYROXINE 137MCG TABLET (0.137MG) PO SCH (06:17)
[2021-08-16] MEDS: LEVEMIR (INSULIN DETEMIR) 1 UNITS/0.01ML SC SCH ×2 (08:16→20:17)
[2021-08-16] MEDS: PANTOPRAZOLE 40MG VIAL IV SCH ×2 (08:16→20:18)
[2021-08-16] MEDS: metOLazone 2.5 MG TAB PO SCH (08:16)
[2021-08-16] MEDS: INSULIN LISPRO (NovoLOG) PER UNIT SC SCH ×4 (08:16→20:25)
[2021-08-16] MEDS: SUCRALFATE 1 GM TAB PO SCH ×4 (08:17→20:20)
[2021-08-16] MEDS: FERROUS SULFATE 325MG TAB PO SCH (08:17)
[2021-08-16] MEDS: BRIMONIDINE 0.15% OPHTH SOLN 5 ML OU SCH ×3 (08:17→20:18)
[2021-08-16] MEDS: SENOKOT S TAB PO SCH ×2 (08:17→20:19)
[2021-08-16] MEDS: GABAPENTIN 100 MG CAP PO SCH ×3 (08:17→20:19)
[2021-08-16] MEDS: ASPIRIN 81MG ENTERIC TABLET PO SCH (08:17)
[2021-08-16] MEDS: CALCITRIOL 0.25 MCG CAP (S0169) PO SCH (08:17)
[2021-08-16] MEDS: ASCORBIC ACID 500 MG TAB PO SCH (08:17)
[2021-08-16] MEDS ORDERED: POTASSIUM CHLORIDE 10MEQ SR TABLET PO ONE (10:00)
[2021-08-16 10:10] LABS: MAGNESIUM LEVEL 3.4 MG/DL (1.8-2.4); PERCENT SATURATION 8.8 % (13.2-45.0)
[2021-08-16 10:16] LABS: PTH INTACT 171.9 PG/ML (18.5-88.0); TOTAL 25(OH) VITAMIN D 22.9 NG/ML (30.0-100.0)
[2021-08-16] MEDS: FUROSEMIDE 100MG/10ML VIAL (J1940) IV SCH ×2 (11:38→17:45)
[2021-08-16] MEDS: SODIUM CHLORIDE 0.9% INJ 10 ML SYR IV PRN ×2 (11:39→12:31)
[2021-08-16] MEDS: ROSUVASTATIN 10 MG TAB (CRESTOR) PO SCH (20:18)
[2021-08-16] MEDS: OXcarbazepine 150 MG TAB PO SCH (20:18)
[2021-08-16] MEDS: LATANOPROST 0.005% OPHTH SOLN 2.5 ML OU SCH (20:18)
[2021-08-16] MEDS: PHENYTOIN ER 100 MG CAP PO SCH (20:19)
[2021-08-16] MEDS: LORATADINE 10 MG TAB PO SCH (20:20)
[2021-08-16] MEDS: SODIUM CHLORIDE NASAL 0.65% SPRAY BTL (OCEAN) SCH (20:25)
[2021-08-17 00:15] VITALS: BP 130/61
[2021-08-17 04:00] VITALS: BP 125/60
[2021-08-17] MEDS: NORCO, ANEXSIA 5/325MG TABLET (HYDROcodone/ACETAMINOPHEN) PO PRN ×2 (05:14→17:22)
[2021-08-17] MEDS: LEVOTHYROXINE 137MCG TABLET (0.137MG) PO SCH (05:14)
[2021-08-17] MEDS: SODIUM CHLORIDE 0.9% INJ 10 ML SYR IV SCH ×2 (05:15→17:03)
[2021-08-17 08:03] LABS: HEMATOCRIT 25.6 % (36.0-47.0); HEMOGLOBIN 7.9 g/dl (12.0-15.5); MEAN CORPUSCULAR HEMOGLOBIN 31.2 pg (27.0-33.0); MEAN CORPUSCULAR HGB CONC 30.9 g/dl (32.0-36.5); MEAN CORPUSCULAR VOLUME 101.2 fl (80.0-96.0); PLATELET COUNT, AUTOMATED 208 10^3/uL (150-450); RED BLOOD COUNT 2.53 10^6/uL (4.00-5.40); WHITE BLOOD COUNT 7.4 10^3/uL (4.0-10.0)
[2021-08-17] MEDS: PANTOPRAZOLE 40MG VIAL IV SCH ×2 (08:27→21:02)
[2021-08-17] MEDS: LEVEMIR (INSULIN DETEMIR) 1 UNITS/0.01ML SC SCH ×2 (08:27→21:03)
[2021-08-17] MEDS: INSULIN LISPRO (NovoLOG) PER UNIT SC SCH ×4 (08:27→21:00)
[2021-08-17 08:28] LABS: CALCIUM LEVEL 8.8 MG/DL (8.8-10.2); CREATININE FOR GFR 3.04 MG/DL (0.55-1.30); GLOMERULAR FILTRATION RATE 19.7 (>45)
[2021-08-17] MEDS: SENOKOT S TAB PO SCH ×2 (08:28→21:05)
[2021-08-17] MEDS: VITAMIN D 1,000 INTERNATIONAL UNITS TABLET PO SCH (08:28)
[2021-08-17] MEDS: SUCRALFATE 1 GM TAB PO SCH ×4 (08:29→21:05)
[2021-08-17] MEDS: FERROUS SULFATE 325MG TAB PO SCH (08:29)
[2021-08-17] MEDS: ASPIRIN 81MG ENTERIC TABLET PO SCH (08:29)
[2021-08-17] MEDS: GABAPENTIN 100 MG CAP PO SCH ×3 (08:29→21:05)
[2021-08-17] MEDS: CALCITRIOL 0.25 MCG CAP (S0169) PO SCH (08:29)
[2021-08-17] MEDS: ASCORBIC ACID 500 MG TAB PO SCH (08:30)
[2021-08-17] MEDS: BRIMONIDINE 0.15% OPHTH SOLN 5 ML OU SCH ×3 (08:33→21:07)
[2021-08-17] MEDS: FUROSEMIDE 100MG/10ML VIAL (J1940) IV SCH (08:35)
[2021-08-17 09:03] VITALS: BP 134/59
[2021-08-17] MEDS: SODIUM CHLORIDE 0.9% INJ 10 ML SYR IV PRN ×2 (09:28→21:04)
[2021-08-17 12:15] VITALS: BP 150/68
[2021-08-17] MEDS ORDERED: FUROSEMIDE 40MG/4ML VIAL (J1940) IV SCH (15:10)
[2021-08-17] MEDS ORDERED: metOLazone 2.5 MG TAB PO SCH (15:10)
[2021-08-17] MEDS ORDERED: PANTOPRAZOLE 40MG TAB (PROTONIX) PO SCH (15:10)
[2021-08-17 15:46] LABS: ABG BASE EXCESS 8.4 (-2.0-2.0); ABG HCO3 35.1 MEQ/L (22.0-26.0); ABG O2 SATURATION 98.1 % (95.0-99.0); ABG PARTIAL PRESSURE CO2 62.9 mmHg (35.0-45.0); ABG PARTIAL PRESSURE O2 104.6 mmHg (75.0-100.0); ABG STANDARD HCO3 32.1 MEQ/L (22.0-26.0); ABG pH (ARTERIAL) 7.364 UNITS (7.350-7.450)
[2021-08-17 15:59] VITALS: BP 158/68
[2021-08-17 20:23] VITALS: BP 164/74
[2021-08-17] MEDS: ROSUVASTATIN 10 MG TAB (CRESTOR) PO SCH (21:05)
[2021-08-17] MEDS: OXcarbazepine 150 MG TAB PO SCH (21:05)
[2021-08-17] MEDS: PHENYTOIN ER 100 MG CAP PO SCH (21:05)
[2021-08-17] MEDS: LORATADINE 10 MG TAB PO SCH (21:05)
[2021-08-17] MEDS: ACETAMINOPHEN TAB 650MG DOSE (2X325MG) PO PRN (21:06)
[2021-08-17] MEDS: LATANOPROST 0.005% OPHTH SOLN 2.5 ML OU SCH (21:07)
[2021-08-17] MEDS: SODIUM CHLORIDE NASAL 0.65% SPRAY BTL (OCEAN) SCH (21:07)
[2021-08-18] VITALS (9 sets, daily range): BP systolic 162–181; BP diastolic 66–74
[2021-08-18] MEDS: LEVOTHYROXINE 137MCG TABLET (0.137MG) PO SCH (06:06)
[2021-08-18] MEDS: SODIUM CHLORIDE 0.9% INJ 10 ML SYR IV SCH ×2 (06:07→18:00)
[2021-08-18 06:15] LABS: HEMATOCRIT 25.6 % (36.0-47.0); HEMOGLOBIN 7.8 g/dl (12.0-15.5); MEAN CORPUSCULAR HEMOGLOBIN 30.7 pg (27.0-33.0); MEAN CORPUSCULAR HGB CONC 30.5 g/dl (32.0-36.5); MEAN CORPUSCULAR VOLUME 100.8 fl (80.0-96.0); PLATELET COUNT, AUTOMATED 217 10^3/uL (150-450); RED BLOOD COUNT 2.54 10^6/uL (4.00-5.40); WHITE BLOOD COUNT 7.4 10^3/uL (4.0-10.0)
[2021-08-18 06:36] LABS: CALCIUM LEVEL 8.7 MG/DL (8.8-10.2); CREATININE FOR GFR 3.19 MG/DL (0.55-1.30); GLOMERULAR FILTRATION RATE 18.6 (>45)
[2021-08-18] MEDS: INSULIN LISPRO (NovoLOG) PER UNIT SC SCH ×4 (08:18→22:18)
[2021-08-18] MEDS: LEVEMIR (INSULIN DETEMIR) 1 UNITS/0.01ML SC SCH ×2 (08:18→22:15)
[2021-08-18] MEDS: SODIUM CHLORIDE 0.9% INJ 10 ML SYR IV PRN ×2 (08:18→22:18)
[2021-08-18] MEDS: SENOKOT S TAB PO SCH ×2 (08:18→22:17)
[2021-08-18] MEDS: PANTOPRAZOLE 40MG VIAL IV SCH ×2 (08:18→22:14)
[2021-08-18] MEDS: CALCITRIOL 0.25 MCG CAP (S0169) PO SCH (08:19)
[2021-08-18] MEDS: FERROUS SULFATE 325MG TAB PO SCH (08:19)
[2021-08-18] MEDS: SUCRALFATE 1 GM TAB PO SCH (08:19)
[2021-08-18] MEDS: ASPIRIN 81MG ENTERIC TABLET PO SCH (08:19)
[2021-08-18] MEDS: GABAPENTIN 100 MG CAP PO SCH (08:19)
[2021-08-18] MEDS: ASCORBIC ACID 500 MG TAB PO SCH (08:20)
[2021-08-18] MEDS: VITAMIN D 1,000 INTERNATIONAL UNITS TABLET PO SCH (08:20)
[2021-08-18] MEDS: BRIMONIDINE 0.15% OPHTH SOLN 5 ML OU SCH ×3 (08:23→22:19)
[2021-08-18] MEDS: FUROSEMIDE 100MG/10ML VIAL (J1940) IV SCH ×2 (09:00→18:51)
[2021-08-18] MEDS ORDERED: FERRIC CARBOXYMALTOSE INJ 750 MG, VIAL MATE ADAPTER 1 EACH in NS 250 ML IV ONE (13:00)
[2021-08-18] MEDS: OXcarbazepine 150 MG TAB PO SCH (22:16)
[2021-08-18] MEDS: PHENYTOIN ER 100 MG CAP PO SCH (22:16)
[2021-08-18] MEDS: LORATADINE 10 MG TAB PO SCH (22:16)
[2021-08-18] MEDS: ROSUVASTATIN 10 MG TAB (CRESTOR) PO SCH (22:16)
[2021-08-18] MEDS: LATANOPROST 0.005% OPHTH SOLN 2.5 ML OU SCH (22:19)
[2021-08-18] MEDS: SODIUM CHLORIDE NASAL 0.65% SPRAY BTL (OCEAN) SCH (22:19)
[2021-08-19 04:00] VITALS: BP 170/70
[2021-08-19] MEDS: LEVOTHYROXINE 137MCG TABLET (0.137MG) PO SCH (05:09)
[2021-08-19] MEDS: NORCO, ANEXSIA 5/325MG TABLET (HYDROcodone/ACETAMINOPHEN) PO PRN (05:12)
[2021-08-19] MEDS: SODIUM CHLORIDE 0.9% INJ 10 ML SYR IV SCH ×2 (05:13→18:05)
[2021-08-19 05:59] LABS: CALCIUM LEVEL 8.7 MG/DL (8.8-10.2); CREATININE FOR GFR 3.18 MG/DL (0.55-1.30); GLOMERULAR FILTRATION RATE 18.7 (>45)
[2021-08-19 05:59] LABS: HEMATOCRIT 29.1 % (36.0-47.0); MEAN CORPUSCULAR HEMOGLOBIN 30.8 pg (27.0-33.0); MEAN CORPUSCULAR HGB CONC 30.9 g/dl (32.0-36.5); MEAN CORPUSCULAR VOLUME 99.7 fl (80.0-96.0); PLATELET COUNT, AUTOMATED 217 10^3/uL (150-450); RED BLOOD COUNT 2.92 10^6/uL (4.00-5.40); WHITE BLOOD COUNT 7.3 10^3/uL (4.0-10.0)
[2021-08-19 08:00] VITALS: BP 162/48
[2021-08-19] MEDS: INSULIN LISPRO (NovoLOG) PER UNIT SC SCH ×4 (09:19→21:00)
[2021-08-19] MEDS: SENOKOT S TAB PO SCH ×2 (09:20→21:07)
[2021-08-19] MEDS: CALCITRIOL 0.25 MCG CAP (S0169) PO SCH (09:20)
[2021-08-19] MEDS: LEVEMIR (INSULIN DETEMIR) 1 UNITS/0.01ML SC SCH ×2 (09:20→21:11)
[2021-08-19] MEDS: GABAPENTIN 100 MG CAP PO SCH (09:20)
[2021-08-19] MEDS: PANTOPRAZOLE 40MG VIAL IV SCH ×2 (09:20→21:04)
[2021-08-19] MEDS: ASPIRIN 81MG ENTERIC TABLET PO SCH (09:21)
[2021-08-19] MEDS: VITAMIN D 1,000 INTERNATIONAL UNITS TABLET PO SCH (09:21)
[2021-08-19] MEDS: ASCORBIC ACID 500 MG TAB PO SCH (09:21)
[2021-08-19] MEDS: BRIMONIDINE 0.15% OPHTH SOLN 5 ML OU SCH ×3 (09:31→21:03)
[2021-08-19] MEDS: POTASSIUM CHLORIDE 10MEQ SR TABLET PO SCH ×2 (09:54→21:05)
[2021-08-19] MEDS: FUROSEMIDE 100MG/10ML VIAL (J1940) IV SCH ×3 (09:54→21:04)
[2021-08-19 12:00] VITALS: BP 142/58
[2021-08-19 16:00] VITALS: BP 140/50
[2021-08-19 20:00] VITALS: BP 154/67
[2021-08-19] MEDS: ROSUVASTATIN 10 MG TAB (CRESTOR) PO SCH (21:00)
[2021-08-19] MEDS: SODIUM CHLORIDE NASAL 0.65% SPRAY BTL (OCEAN) SCH (21:00)
[2021-08-19] MEDS: LATANOPROST 0.005% OPHTH SOLN 2.5 ML OU SCH (21:00)
[2021-08-19] MEDS: LORATADINE 10 MG TAB PO SCH (21:07)
[2021-08-19] MEDS: OXcarbazepine 150 MG TAB PO SCH (21:09)
[2021-08-19] MEDS: PHENYTOIN ER 100 MG CAP PO SCH (21:09)
[2021-08-19 23:10] VITALS: BP 114/59
[2021-08-20] VITALS (11 sets, daily range): BP systolic 122–193; BP diastolic 60–79
[2021-08-20] MEDS: NORCO, ANEXSIA 5/325MG TABLET (HYDROcodone/ACETAMINOPHEN) PO PRN ×2 (00:02→12:28)
[2021-08-20] MEDS: LEVOTHYROXINE 137MCG TABLET (0.137MG) PO SCH (05:34)
[2021-08-20] MEDS: SODIUM CHLORIDE 0.9% INJ 10 ML SYR IV SCH ×2 (05:35→17:29)
[2021-08-20 06:03] LABS: HEMATOCRIT 28.8 % (36.0-47.0); HEMOGLOBIN 8.8 g/dl (12.0-15.5); MEAN CORPUSCULAR HEMOGLOBIN 31.1 pg (27.0-33.0); MEAN CORPUSCULAR HGB CONC 30.6 g/dl (32.0-36.5); MEAN CORPUSCULAR VOLUME 101.8 fl (80.0-96.0); PLATELET COUNT, AUTOMATED 212 10^3/uL (150-450); RED BLOOD COUNT 2.83 10^6/uL (4.00-5.40); WHITE BLOOD COUNT 6.4 10^3/uL (4.0-10.0)
[2021-08-20 06:28] LABS: CALCIUM LEVEL 8.8 MG/DL (8.8-10.2); CREATININE FOR GFR 3.3 MG/DL (0.55-1.30); GLOMERULAR FILTRATION RATE 17.9 (>45); POTASSIUM SERUM 4.4 MEQ/L (3.5-5.1)
[2021-08-20] MEDS: ASPIRIN 81MG ENTERIC TABLET PO SCH (08:42)
[2021-08-20] MEDS: GABAPENTIN 100 MG CAP PO SCH (08:42)
[2021-08-20] MEDS: FUROSEMIDE 100MG/10ML VIAL (J1940) IV SCH ×4 (08:42→20:45)
[2021-08-20] MEDS: SENOKOT S TAB PO SCH ×2 (08:42→20:46)
[2021-08-20] MEDS: PANTOPRAZOLE 40MG VIAL IV SCH ×2 (08:42→20:43)
[2021-08-20] MEDS: VITAMIN D 1,000 INTERNATIONAL UNITS TABLET PO SCH (08:42)
[2021-08-20] MEDS: CALCITRIOL 0.25 MCG CAP (S0169) PO SCH (08:42)
[2021-08-20] MEDS: ASCORBIC ACID 500 MG TAB PO SCH (08:43)
[2021-08-20] MEDS: ACETAMINOPHEN TAB 650MG DOSE (2X325MG) PO PRN ×2 (08:43→20:45)
[2021-08-20] MEDS: INSULIN LISPRO (NovoLOG) PER UNIT SC SCH ×4 (08:44→20:28)
[2021-08-20] MEDS: LEVEMIR (INSULIN DETEMIR) 1 UNITS/0.01ML SC SCH ×2 (08:44→20:44)
[2021-08-20] MEDS: BRIMONIDINE 0.15% OPHTH SOLN 5 ML OU SCH ×3 (08:45→20:47)
[2021-08-20] MEDS: DOBUTamine HCL 500,000 MCG in IV 1 EA IV SCH (13:22)
[2021-08-20] MEDS ORDERED: hydrALAZINE 20MG/ML 1ML VIAL (J0360 PER 20MG) IV PRN (13:45)
[2021-08-20] MEDS ORDERED: LIDOCAINE 1% MDV 20ML VIAL As Ordered ONE (14:30)
[2021-08-20 18:39] LABS: CK-MB VALUE MASS 2.5 NG/ML (<3.6); MB/CK RELATIVE INDEX 2.12 (< OR =4)
[2021-08-20] MEDS: HEPARIN SOD (PORCINE) 5000UNITS/ML 1ML VIAL/SYRINGE SQ SCH (20:44)
[2021-08-20] MEDS: LORATADINE 10 MG TAB PO SCH (20:45)
[2021-08-20] MEDS: ROSUVASTATIN 10 MG TAB (CRESTOR) PO SCH (20:45)
[2021-08-20] MEDS: PHENYTOIN ER 100 MG CAP PO SCH (20:46)
[2021-08-20] MEDS: OXcarbazepine 150 MG TAB PO SCH (20:46)
[2021-08-20] MEDS: SODIUM CHLORIDE NASAL 0.65% SPRAY BTL (OCEAN) SCH (20:47)
[2021-08-20] MEDS: LATANOPROST 0.005% OPHTH SOLN 2.5 ML OU SCH (20:47)
[2021-08-21] VITALS (8 sets, daily range): BP systolic 129–172; BP diastolic 62–71
[2021-08-21] MEDS: ACETAMINOPHEN TAB 650MG DOSE (2X325MG) PO PRN ×3 (03:31→21:06)
[2021-08-21] MEDS: SODIUM CHLORIDE 0.9% INJ 10 ML SYR IV SCH ×2 (05:38→18:12)
[2021-08-21] MEDS: LEVOTHYROXINE 137MCG TABLET (0.137MG) PO SCH (05:38)
[2021-08-21 06:04] LABS: HEMATOCRIT 27.7 % (36.0-47.0); HEMOGLOBIN 8.4 g/dl (12.0-15.5); MEAN CORPUSCULAR HEMOGLOBIN 30.9 pg (27.0-33.0); MEAN CORPUSCULAR HGB CONC 30.3 g/dl (32.0-36.5); MEAN CORPUSCULAR VOLUME 101.8 fl (80.0-96.0); PLATELET COUNT, AUTOMATED 205 10^3/uL (150-450); RED BLOOD COUNT 2.72 10^6/uL (4.00-5.40); WHITE BLOOD COUNT 9.4 10^3/uL (4.0-10.0)
[2021-08-21 06:22] LABS: CALCIUM LEVEL 8.7 MG/DL (8.8-10.2); CREATININE FOR GFR 3.28 MG/DL (0.55-1.30)
[2021-08-21] MEDS: VITAMIN D 1,000 INTERNATIONAL UNITS TABLET PO SCH (08:19)
[2021-08-21] MEDS: PANTOPRAZOLE 40MG VIAL IV SCH ×2 (08:19→21:08)
[2021-08-21] MEDS: GABAPENTIN 100 MG CAP PO SCH (08:19)
[2021-08-21] MEDS: ASPIRIN 81MG ENTERIC TABLET PO SCH (08:19)
[2021-08-21] MEDS: NORCO, ANEXSIA 5/325MG TABLET (HYDROcodone/ACETAMINOPHEN) PO PRN (08:19)
[2021-08-21] MEDS: SENOKOT S TAB PO SCH ×2 (08:19→21:00)
[2021-08-21] MEDS: ASCORBIC ACID 500 MG TAB PO SCH (08:20)
[2021-08-21] MEDS: INSULIN LISPRO (NovoLOG) PER UNIT SC SCH ×4 (08:20→21:00)
[2021-08-21] MEDS: HEPARIN SOD (PORCINE) 5000UNITS/ML 1ML VIAL/SYRINGE SQ SCH ×2 (08:20→21:07)
[2021-08-21] MEDS: CALCITRIOL 0.25 MCG CAP (S0169) PO SCH (08:20)
[2021-08-21] MEDS: BRIMONIDINE 0.15% OPHTH SOLN 5 ML OU SCH ×3 (08:21→21:06)
[2021-08-21] MEDS: FUROSEMIDE 100MG/10ML VIAL (J1940) IV SCH ×3 (08:21→21:08)
[2021-08-21] MEDS ORDERED: metOLazone 5 MG TAB PO ONE (09:35)
[2021-08-21] MEDS: POTASSIUM CHLORIDE 10MEQ SR TABLET PO SCH ×2 (11:13→21:04)
[2021-08-21] MEDS: LEVEMIR (INSULIN DETEMIR) 1 UNITS/0.01ML SC SCH ×2 (11:14→21:07)
[2021-08-21] MEDS ORDERED: NORCO, ANEXSIA 5/325MG TABLET (HYDROcodone/ACETAMINOPHEN) PO PRN (11:35)
[2021-08-21] MEDS: DOBUTamine HCL 500,000 MCG in IV 1 EA IV SCH (14:14)
[2021-08-21] MEDS: LATANOPROST 0.005% OPHTH SOLN 2.5 ML OU SCH (21:05)
[2021-08-21] MEDS: SODIUM CHLORIDE NASAL 0.65% SPRAY BTL (OCEAN) SCH (21:05)
[2021-08-21] MEDS: ROSUVASTATIN 10 MG TAB (CRESTOR) PO SCH (21:06)
[2021-08-21] MEDS: LORATADINE 10 MG TAB PO SCH (21:06)
[2021-08-21] MEDS: OXcarbazepine 150 MG TAB PO SCH (21:07)
[2021-08-21] MEDS: PHENYTOIN ER 100 MG CAP PO SCH (21:07)
[2021-08-22 00:01] VITALS: BP 119/55
[2021-08-22 04:00] VITALS: BP 139/63
[2021-08-22] MEDS: ACETAMINOPHEN TAB 650MG DOSE (2X325MG) PO PRN (05:02)
[2021-08-22] MEDS: LEVOTHYROXINE 137MCG TABLET (0.137MG) PO SCH (05:02)
[2021-08-22 05:08] LABS: HEMATOCRIT 26.9 % (36.0-47.0); HEMOGLOBIN 8.3 g/dl (12.0-15.5); MEAN CORPUSCULAR HEMOGLOBIN 30.6 pg (27.0-33.0); MEAN CORPUSCULAR HGB CONC 30.9 g/dl (32.0-36.5); MEAN CORPUSCULAR VOLUME 99.3 fl (80.0-96.0); PLATELET COUNT, AUTOMATED 193 10^3/uL (150-450); RED BLOOD COUNT 2.71 10^6/uL (4.00-5.40); WHITE BLOOD COUNT 7.7 10^3/uL (4.0-10.0)
[2021-08-22] MEDS: SODIUM CHLORIDE 0.9% INJ 10 ML SYR IV SCH (05:16)
[2021-08-22 05:59] LABS: ALBUMIN 2.8 GM/DL (3.2-5.2); BILIRUBIN,TOTAL 0.6 MG/DL (0.2-1.0); CALCIUM LEVEL 8.4 MG/DL (8.8-10.2); CREATININE FOR GFR 3.37 MG/DL (0.55-1.30); GLOMERULAR FILTRATION RATE 17.4 (>45); POTASSIUM SERUM 4.6 MEQ/L (3.5-5.1); TOTAL PROTEIN 6.5 GM/DL (6.4-8.2)
[2021-08-22 08:00] VITALS: BP 163/71
[2021-08-22] MEDS: CALCITRIOL 0.25 MCG CAP (S0169) PO SCH (08:08)
[2021-08-22] MEDS: GABAPENTIN 100 MG CAP PO SCH (08:08)
[2021-08-22] MEDS: SENOKOT S TAB PO SCH (08:08)
[2021-08-22] MEDS: ASPIRIN 81MG ENTERIC TABLET PO SCH (08:08)
[2021-08-22] MEDS: HEPARIN SOD (PORCINE) 5000UNITS/ML 1ML VIAL/SYRINGE SQ SCH (08:09)
[2021-08-22] MEDS: PANTOPRAZOLE 40MG VIAL IV SCH (08:09)
[2021-08-22] MEDS: VITAMIN D 1,000 INTERNATIONAL UNITS TABLET PO SCH (08:11)
[2021-08-22] MEDS: FUROSEMIDE 100MG/10ML VIAL (J1940) IV SCH (08:11)
[2021-08-22] MEDS: ASCORBIC ACID 500 MG TAB PO SCH (08:11)
[2021-08-22] MEDS: BRIMONIDINE 0.15% OPHTH SOLN 5 ML OU SCH (08:11)
[2021-08-22] MEDS: LEVEMIR (INSULIN DETEMIR) 1 UNITS/0.01ML SC SCH (08:12)
[2021-08-22] MEDS: INSULIN LISPRO (NovoLOG) PER UNIT SC SCH (08:12)
[2021-08-22] MEDS ORDERED: MORPHINE 2 MG/ML 1ML VIAL IV PRN (09:35)
[2021-08-22] MEDS ORDERED: ATROPINE SULFATE 1% OP SOLN 2 ML BTL SL PRN (09:35)
[2021-08-22] MEDS ORDERED: LORazepam 2 MG/ML VIAL IV PRN (09:35)
[2021-08-22] MEDS ORDERED: HYOS125TA PO ×2 (10:42→10:43)
[2021-08-22] MEDS ORDERED: MORP1SOL5 PO ×2 (10:42→10:47)
[2021-08-22] MEDS ORDERED: ATIV1TAB10 PO ×2 (10:42→10:47)
[2021-08-22] MEDS ORDERED: NEOSPORIN TOP OINT 15GM TOP ONE (11:05)
[2021-08-22] MEDS ORDERED: NEOSPORIN OINT 0.9 GM PKT TOP ONE (11:30)
== END 2021-08-22 12:24 | DRG 291 ==
LOC: M ED 15:43 → EDBD 15:43 → M ED INP 20:10 → M ICU 08-14 04:50 → M PCU 08-16 09:30 → M ICU 08-16 09:31 → M PCU 08-16 09:44 → M MSPAV 08-19 23:03 → M ICU 08-20 10:53
PROVIDERS: ADMIT Internal Medicine; ATTEND Internal Medicine
PROC: 02HV33Z Insertion of Infusion Device into Superior Vena Cava, Percutaneous Approach (ICD-10-PCS; principal; 2021-08-15 11:30)
PROC: 30233N1 Transfusion of Nonautologous Red Blood Cells into Peripheral Vein, Percutaneous Approach (ICD-10-PCS; 2021-08-18)
PROC: 02HV33Z Insertion of Infusion Device into Superior Vena Cava, Percutaneous Approach (ICD-10-PCS; 2021-08-20)
PROC: 05PY33Z Removal of Infusion Device from Upper Vein, Percutaneous Approach (ICD-10-PCS; 2021-08-20)
DX: I13.0 Hypertensive heart and chronic kidney disease with heart failure and stage 1 through stage 4 chronic kidney disease, or unspecified chronic kidney disease (principal); I50.33 Acute on chronic diastolic (congestive) heart failure; G93.40 Encephalopathy, unspecified; J96.11 Chronic respiratory failure with hypoxia; J96.12 Chronic respiratory failure with hypercapnia; F11.20 Opioid dependence, uncomplicated; N17.9 Acute kidney failure, unspecified; E72.20 Disorder of urea cycle metabolism, unspecified; I69.354 Hemiplegia and hemiparesis following cerebral infarction affecting left non-dominant side; G40.209 Localization-related (focal) (partial) symptomatic epilepsy and epileptic syndromes with complex partial seizures, not intractable, without status epilepticus; Z68.42 Body mass index [BMI] 45.0-49.9, adult; Z51.5 Encounter for palliative care; Z66 Do not resuscitate; E11.22 Type 2 diabetes mellitus with diabetic chronic kidney disease; I48.91 Unspecified atrial fibrillation; E03.9 Hypothyroidism, unspecified; I08.1 Rheumatic disorders of both mitral and tricuspid valves; J44.9 Chronic obstructive pulmonary disease, unspecified; I27.81 Cor pulmonale (chronic); G47.33 Obstructive sleep apnea (adult) (pediatric); D63.1 Anemia in chronic kidney disease; N18.30 Chronic kidney disease, stage 3 unspecified; E11.42 Type 2 diabetes mellitus with diabetic polyneuropathy; E66.01 Morbid (severe) obesity due to excess calories; Z87.891 Personal history of nicotine dependence; Z99.81 Dependence on supplemental oxygen; Z90.12 Acquired absence of left breast and nipple; Z79.82 Long term (current) use of aspirin; Z79.4 Long term (current) use of insulin; Z79.899 Other long term (current) drug therapy; Z88.2 Allergy status to sulfonamides; Z88.1 Allergy status to other antibiotic agents; Z88.5 Allergy status to narcotic agent; Z88.8 Allergy status to other drugs, medicaments and biological substances

== ENCOUNTER → 2021-08-13 | Outpatient (REF) | payer MEDICARE, MEDICAID ==
[~2021-08-13] MED LIST changes: +APAP325T4 PO; +ATIV1TAB10 PO; +CLAR10CA3 PO; +DICL20GE TP; +HYOS125TA PO; +METO1TAB87 PO; +METO25TA PO; +MORP1SOL5 PO; +OXCA150T21 PO; +SENN1TAB41 PO; +SYST1SOL4 OU
[2021-08-13 10:35] LABS: HEMATOCRIT 27.9 % (36.0-47.0); HEMOGLOBIN 8.4 g/dl (12.0-15.5); MEAN CORPUSCULAR HEMOGLOBIN 30.2 pg (27.0-33.0); MEAN CORPUSCULAR HGB CONC 30.1 g/dl (32.0-36.5); MEAN CORPUSCULAR VOLUME 100.4 fl (80.0-96.0); PLATELET COUNT, AUTOMATED 211 10^3/uL (150-450); RED BLOOD COUNT 2.78 10^6/uL (4.00-5.40); WHITE BLOOD COUNT 7.2 10^3/uL (4.0-10.0)
[2021-08-13 11:10] LABS: CALCIUM LEVEL 8.5 MG/DL (8.8-10.2); CREATININE FOR GFR 2.55 MG/DL (0.55-1.30); GLOMERULAR FILTRATION RATE 24.1 (>45)
== END ==
LOC: SKLAB5 08:47
PROVIDERS: ATTEND Neuromusculoskeletal Medicine & OMM
DX: I50.9 Heart failure, unspecified (principal)